=== PATIENT | male | born 1950 | race Caucasian/White ===

== ENCOUNTER 2022-05-06 09:20 | Outpatient (CLI) | payer MEDICARE, SELFPAY ==
--- NOTE | ~2022-05-06 | NM_ITS ---
NM bone scan whole body INDICATION: Prostate cancer TECHNIQUE: The patient was injected with 24.3 mCi Tc 99m HDP. Gamma camera images of the region of i nterest and whole body were obtained. COMPARISON: CT dated 05/06/2022 FINDINGS: There is mild radiotracer uptake symmetrically in the shoulders, wrists and knees. There is mild uptake in the mandible on the right, likely odontogenic disease. No suspicious radiotracer upta ke to suggest osseous metastases. IMPRESSION: 1: Normal bone scan for age. Reviewed, dictated and finalized at location A. LE SCHOOL RESOURCE TEACHER
--- NOTE | ~2022-05-06 | CT_ITS ---
EXAMINATION: CT abdomen pelvis w con DATE: 05/06/2022 10:15 INDICATION: Prostate cancer TECHNIQUE: Computed tomography (CT) of the abdomen and pelvis was performed with 100 CC Omnipaque 350 intravenous contrast. Automated exposure control and iterative reconstruction technique were employe d. Exam dose: 574.85 mGy-cm total exam DLP. COMPARISON: 01/18/2014 CT abdomen pelvis FINDINGS: Approximately 1.3 cm deep approximately 8.5 cm wide loculated high density pleural fluid or pleural thickening is present along the posteromedial right lower thorax with some adjacent atelecta sis or pulmonary fibrotic change. These findings are new since 01/08/2014. The lung bases are otherwise unremarkable. Normal heart size. No pericardial or pleural effusion. Small sliding hiatal hernia. There is nonspecific thickening of the wall of the distal esophagus and gastric fundus and body. Consider esophagram and upper gastrointestinal series or endoscopy. There are multiple scattered hepatic cysts, the largest measuring up to 2 cm, situated at the lateral segment of the left hepatic lobe. The remainder considerably smaller in size. The liver is otherwise unremarkable. The gallbladder is present. No pericholecystic fluid or fat stranding. No bile duct or pancreatic joana t dilatation. The spleen measures up to 12 cm vertical dimension, within upper normal range. Normal morphology of the adrenal glands. Approximately 1.3 cm probable cyst of the lower pole of the right kidney. There is focal scarring at the lateral mid to upper right kidney. Focal small scarring at the medial mid to upper left kidney. No urinary tract calculus or hydroureteronephrosis. There is prostate enlargement and calcification. There is moderate diffuse thickening of the urinary bladder wall, likely due to bladder outlet obstruction secondary to prostatomegaly. There is atherosclerotic calcification of the abdominal aorta, celiac, superior mesenteric and renal as well as iliac and femoral arteries. Mild saccular infrarenal abdominal aortic aneurysm, measuring up to 3.5 cm maximal diameter. Mild fat-containing right inguinal hernia. Normal appendix. There is a prominent amount of fecal material in the colon. No bowel obstruction, kristie wel wall thickening, pneumatosis or intraperitoneal free air. Degenerative changes of the thoracic and lumbar spine. No suspicious osteolytic or osteoblastic lesio ns are noted. IMPRESSION: Prostate enlargement and calcifications with bladder outlet obstruction causing moderate diffuse thickening of the urinary bladder wall Thickening of the distal wall of the esophagus and gastric fundus and body; consider esophagram and u pper gastrointestinal series or endoscopy Small sliding hiatal hernia Numerous hepatic cysts, 1.3 cm right renal cyst Focal mild scarring of each kidney 3.5 cm saccular infrarenal abdominal aortic aneurysm Reviewed, dictated and finalized at Location A. Reviewed, dictated and finalized at location B. ER PROFESSIONAL IMPRESSION: Prostate enlargement and calcifications with bladder outlet obstru ction causing moderate diffuse thickening of the urinary bladder wall Thickening of the distal wall of the esophagus and gastric fundus and body; con music director esophagram and upper gastrointestinal series or endoscopy Small sliding hiatal hernia Numerous hepatic cysts, 1.3 cm right renal cyst Focal mild scarring of each kidney 3.5 cm saccular infrarenal abdominal aortic aneurysm
--- NOTE | ~2022-05-06 | XR_ITS ---
XR chest 2V DATE: 05/06/2022 09:58 INDICATION: Prostate cancer TECHNIQUE: 2 views COMPARISON: None FINDINGS: There is ill-defined increased density overlying the right mid to lower lung field. There i s evidence of gynecomastia on the lateral view, which might account for the increased soft tissue den sity overlying the right mid and lower lung. No pulmonary infiltrate or consolidation, pleural effusion or pulmonary vascular congestion or pneumo thorax is detected. No hilar or mediastinal enlargement. Normal heart size. Degenerative spurring of the thoracic spine. There is osteopenia. There is suspicious osteolytic or o steoblastic lesions are identified. IMPRESSION: Suspected gynecomastia No active cardiopulmonary disease Reviewed, dictated and finalized at location B. O SYSTEM REPAIRER
[2022-05-06 10:08] LABS: Estimated Glomerular Filt Rate > 60
== END 2022-05-06 09:21 | disposition home or self-care (01) ==
PROVIDERS: PCP Family Medicine; Visit Provider Urology
DX: C61 Malignant neoplasm of prostate (principal); K44.9 Diaphragmatic hernia without obstruction or gangrene; I71.43 Infrarenal abdominal aortic aneurysm, without rupture
CPT/HCPCS: 71046; 74177; 78306; A9561; Q9967

== ENCOUNTER 2022-06-27 11:53 | Outpatient (CLI) | payer MEDICARE, SELFPAY ==
--- NOTE | 2022-06-27 13:04 | ECG_ITS ---
Measurements Intervals [place] Rate: 67 P: 85 PA: 173 QRS: 69 QRSD: 114 T: 47 QT: 413 QTc: 439 Interpretive Statements SINUS RHYTHM WITH SINUS ARRHYTHMIA BASELINE ARTIFACT- I, II, III, AVR, AVL, AVF, V1-V6 NORMAL ECG NO PREVIOUS ECG AVAILABLE FOR COMPARISON Electronically Signed On 06-27-2022 14:00:51 PORTABLE GRINDING MACHINE OPERATOR by Alfie Dukes D.O.
[2022-06-27 13:51] LABS: Hematocrit 49.6 % (42.0-52.0); Hemoglobin 15.5 g/dL (14.0-18.0); Mean Corpuscular HGB Conc 31.3 g/dl (32-36); Mean Corpuscular Hemoglobin 27.7 pg (26-34); Mean Corpuscular Volume 88.6 fl (80-100); Mean Platelet Volume 8.6 fl (7.4-10.4); Platelet Count Result 299 k/mm3 (150-375); Red Cell Distribution Width 14.2 % (11.5-14.5); White Blood Count 7.6 K/mm3 (4.5-10.0)
[2022-06-27 14:00] LABS: Appearance Urine Clear (Clear); Bilirubin Urine Negative (Negative); Blood Urine Trace-intact (Negative); Color Urine Yellow (Yellow); Glucose Urine UA Negative (Negative); Ketones Urine Negative (Negative); Leukocyte Esterase Ur Negative LEU/UL (Negative); Nitrate Urine Negative (Negative); Protein Urine Negative (Negative)
[2022-06-27 14:01] LABS: INR 1.2; Prothrombin Time 14.7 Seconds (11.1-14.7)
[2022-06-27 14:02] LABS: Alanine Aminotransferase 13 U/L (6-50); Albumin Level 4.3 g/dL (3.5-5.1); Alkaline Phosphatase 83 U/L (38-126); Anion Gap 4 mmol/L (8-16); Aspartate Amino Transferase 19 U/L (17-59); Bilirubin,Total 0.5 mg/dL (0.2-1.3); Blood Urea Nitrogen 8 mg/dL (9-20); Calcium 8.9 mg/dL (8.4-10.2); Carbon Dioxide 38 mmol/L (22-30); Chloride 92 mmol/L (98-107); Estimated Glomerular Filt Rate > 60; Glucose 117 mg/dL (65-110); Partial Thromboplastin Time 30.6 SECONDS (22.3-36.8); Potassium 3.8 mmol/L (3.4-5.0); Sodium 134 mmol/L (137-145)
[2022-06-27 14:06] LABS: Bacteria Urine Trace /hpf; Mucus Urine Rare /lpf; WBC Urine 0-3 /hpf
[2022-06-27 14:10] LABS: Add Urine Microscopic? YES
[2022-06-27 14:37] LABS: Band Neutrophils Percent 2 % (0-6); Eosinophils Absolute Manual 1.52 K/mm3 (0.02-0.5); Eosinophils Percent Manual 20 % (0-4); Lymphocytes Absolute Manual 1.97 K/mm3 (1.1-4.5); Lymphocytes Percent Manual 26 % (18-44); Monocytes Absolute Manual 0.22 K/mm3 (0.1-0.90); Monocytes Percent Manual 3 % (3-9); Neutrophils Absolute Manual 3.87 K/mm3 (1.3-6.7); Neutrophils Percent Manual 49 % (46-73); Platelet Estimate Adequate (Adequate); Total Cells Counted 100
[2022-06-27 14:38] LABS: Schistocytes None Seen (NORMAL)
== END 2022-06-27 11:54 | disposition home or self-care (01) ==
PROVIDERS: PCP Family Medicine; Visit Provider Urology
DX: C61 Malignant neoplasm of prostate (principal); Z01.818 Encounter for other preprocedural examination
CPT/HCPCS: 36415; 80053; 81001; 85025; 85610; 85730; 86850; 86900; 86901; 93005

== ENCOUNTER 2022-07-07 00:42 | Day surgery (SDC) | payer MEDICARE, SELFPAY ==
[2022-06-27 12:19] VITALS: BMI 27.1
--- NOTE | 2022-06-27 12:37 | PC.NURSE ---
Report to the Outpatient Waiting Room, entrance under the green pavilion located off [facility], at time __6:00AM on date _07/07/22 . Planned Procedure Time: __7:30AM . Time changes happen often and if your time is changed the preop area will call you the afternoon before. - You and your visitor will be asked to self-screen and do not enter if you have any COVID symptoms. - Only one visitor is requested with a max of two and NO children visitors are allowed at this time. - The patient visitor may be requested to leave or wait in car when not with patient due to distancing restrictions. - A mask is optional within the hospital. Patients may have clear liquids (water, carbonated beverages, clear teas, apple juice) until 3 hours prior to surgery with a maximum of 20 ounces. - No food from midnight until time of surgery Take the following medications with a SIP of water the morning of surgery: ____CARVEDILOL, WIXELA INHALER, TIMOLOL EYE DROPS, ALBUTEROL INHALER NEEDED Medications to discontinue per physician ___HOLD ASPIRIN 7 DAYS PRE-OP PER DR GARDNER(PER PATIENT) Date to take last dose____06/30/22 Please no make-up, nail comoran, hairspray, perfume, deodorant, or body powder the day of surgery. No jewelry (including any body piercings) or valuables the day of surgery, leave them at home. Please take a shower or bath the night before, or the morning of, surgery with an antibacterial soap. Wear comfortable, loose fitting clothing. Children are encouraged to wear pajamas. - Jewelry must be removed prior to entering the operating room. Rings and piercings that are not removed may be cut off. - The hospital will not accept responsibility for valuables. - Please leave all valuables, including medications, at home the day of surgery. If you are going home after surgery, a licensed city route driver must drive you home. - NO public transportation without another adult if you receive anesthesia. - We recommend that an adult stay with you for 24 hours following discharge. - We also recommend that you do not drive, make important decision, drink alcoholic beverages, or take any drugs that were not prescribed by your health care provider for at least 24 hours after your discharge time. Follow any additional instructions given to you from your surgeon. BOWEL PREP PER DR GARDNER If you or anyone in your household have experienced Covid symptoms in the past week, please notify your surgeon or the nurse liaison at the phone number below for possible testing. Telephone instructions given to __PATIENT____and asked if any additional questions and then verbalized understanding. Patient advised to call surgeon office or pre surgery nurse liaison [phone] if any additional questions.
[2022-06-27 13:00] VITALS: BP 160/81; PULSE 70; RESP 16; TEMP 37.1; O2SAT 95
--- NOTE | 2022-06-30 08:42 | P.HP_ITS ---
H&P: HPI History of Present Illness Date/Time: 06/30/22 08:42 Chief Complaint: Prostate cancer Narrative: 71-year-old gentleman who was found to have a PSA of 11.4 in April 2022. Subsequent biopsy revealed 5 of 12 cores with [place] 6, 7, 8 and 9 adenocarcinoma. Prostate volume was 42.[address] scan the abdomen and pelvis and bone scan were unremarkable. After careful discussion and consideration of therapeutic options including active surveillance, radiation therapy, radical prostatectomy and androgen ablation he has opted for the surgical approach. He is aware the risk of this including, but not limited to, adverse cardiopulmonary events, rectal injury, persistent carcinoma requiring additional therapy, urinary incontinence and erectile dysfunction Review of Systems Cardiovascular: Cardiovascular: Denies chest pain, Denies lightheadedness, Denies palpitations and Denies dyspnea Respiratory: Respiratory: Denies dyspnea Gastrointestinal: Gastrointestinal: Denies diarrhea, Denies nausea and Denies vomiting Genitourinary: Genitourinary: Denies hematuria and Denies dysuria Endocrine: Endocrine: Denies palpitations PMFSH Social History Social History Smoking packs per day: 1.5 Smoking cigarettes per day: 30.0 Years smoked: 55 Smoking pack-years: 82.50 Smoking status: Current every day smoker Tobacco type: cigarettes Additional smoking assessment comments: DECREASING SMOKING SINCE 2021, 4 CIG/DAY/TAPERING NICOTINE PATCH Alcohol intake: former Alcohol use details: QUIT 2018, HEAVY DRINKER PRIOR Substance use: never Living arrangements: alone Spiritual care concerns: No Meds Home Medications and Allergies Home Medications Medication Instructions Recorded Confirmed Type albuterol sulfate 90 mcg/actuation 2 puff inhalation Q4-5H PRN Dyspnea 06/27/22 06/27/22 History aerosol inhaler aspirin 81 mg tablet,delayed 81 mg PO QPM 06/27/22 06/27/22 History release carvedilol 12.5 mg tablet 12.5 mg PO BID 06/27/22 06/27/22 History cetirizine 10 mg capsule 10 mg PO DAILY PRN Congestion 06/27/22 06/27/22 History fluticasone 250 mcg-salmeterol 50 1 inh inhalation BID 06/27/22 06/27/22 History mcg/dose blistr powdr for inhalation (Wixela Inhub) lisinopril 20 1 tablet PO QAM 06/27/22 06/27/22 History mg-hydrochlorothiazide 12.5 mg tablet nicotine 7 mg/24 hr daily 1 patch transdermal DAILY 06/27/22 06/27/22 History transdermal patch pantoprazole 40 mg tablet,delayed 40 mg PO QAM 06/27/22 06/27/22 History release timolol maleate 0.5 % eye drops 1 drp EACH EYE BID 06/27/22 06/27/22 History Allergies Allergy/AdvReac Type Severity Reaction Status Date / Time No Known Allergies Allergy Verified 06/27/22 12:09 Exam Const: General: no acute distress Resp: Effort & Inspection: normal respiratory effort GI: Inspection: non-distended GI Palp: No abdominal tenderness and No Guarding due to palpation present (GI) Auscultation: normal bowel sounds Assessment and Plan Assessment and plan (1) Prostate cancer: Code(s): C61 - Malignant neoplasm of prostate Status: Acute Assessment and Plan: * robotic assisted laparoscopic prostatectomy bilateral pelvic lymphadenectomy
[2022-07-07] VITALS (22 sets, daily range): BP systolic 81–153; BP diastolic 44–96; PULSE 56–108; RESP 9–18; TEMP 35.8–36.6; O2SAT 87–99
[2022-07-07] MEDS: LACTATED RINGERS 1,000 ML 30 ML IV CONT ×2 (06:45→10:26)
--- NOTE | 2022-07-07 06:55 | WPDANESEPPF ---
Anes - Initial Pre Proc Eval Procedure: Operation Date: 07/07/22 07:30 Proposed Procedures p Robotic Assisted Laparoscopic Prostatectomy with Bilateral Pelvic Lymph Node Dissection - Nacho Stoddard MD Date/Time: 07/07/22 06:55 Surgeon: Nacho Stoddard MD Pre Op Diagnosis: prostate cancer Patient Data Age: 72 Gender: M Height: 1.83 m Weight: 90.7 kg Last Vital Signs Temp 37.1 C 06/27/22 13:00 Pulse 70 06/27/22 13:00 Resp 16 06/27/22 13:00 BP 160/81 H 06/27/22 13:00 Pulse Ox 95 06/27/22 13:00 O2 Del Method Room Air 06/27/22 13:00 Allergies Allergy/AdvReac Type Severity Reaction Status Date / Time No Known Allergies Allergy Verified 06/27/22 12:09 Home Medications Medication Instructions Recorded Confirmed Type albuterol sulfate 90 mcg/actuation 2 puff inhalation Q4-5H PRN Dyspnea 06/27/22 06/27/22 History aerosol inhaler aspirin 81 mg tablet,delayed 81 mg PO QPM 06/27/22 06/27/22 History release carvedilol 12.5 mg tablet 12.5 mg PO BID 06/27/22 06/27/22 History cetirizine 10 mg capsule 10 mg PO DAILY PRN Congestion 06/27/22 06/27/22 History fluticasone 250 mcg-salmeterol 50 1 inh inhalation BID 06/27/22 06/27/22 History mcg/dose blistr powdr for inhalation (Wixela Inhub) lisinopril 20 1 tablet PO QAM 06/27/22 06/27/22 History mg-hydrochlorothiazide 12.5 mg tablet nicotine 7 mg/24 hr daily 1 patch transdermal DAILY 06/27/22 06/27/22 History transdermal patch pantoprazole 40 mg tablet,delayed 40 mg PO QAM 06/27/22 06/27/22 History release timolol maleate 0.5 % eye drops 1 drp EACH EYE BID 06/27/22 06/27/22 History Patient hx anesthesia problems: none Family hx anesthesia problems: none Results Review: All pre-operative results and documents have been reviewed as part of the pre-operative evaluation. FORMERLY [facility] Past Medical History Medical History (Updated 07/07/22 @ 06:56 by Silvio Woods MD) COPD (chronic obstructive pulmonary disease) HTN (hypertension) Hyperlipidemia Surgical History Surgical History (Updated 07/07/22 @ 06:56 by Silvio Woods MD) H/O carotid endarterectomy Social History Social History Smoking packs per day: 1.5 Smoking cigarettes per day: 30.0 Years smoked: 55 Smoking pack-years: 82.50 Smoking status: Current every day smoker Tobacco type: cigarettes Additional smoking assessment comments: DECREASING SMOKING SINCE 2021, 4 CIG/DAY/TAPERING NICOTINE PATCH Alcohol intake: former Alcohol use details: QUIT 2017, HEAVY DRINKER PRIOR Substance use: never Living arrangements: alone Spiritual care concerns: No Anes - Eval Final PreProcedure Day of Procedure 07/07/22 06:55 Patient weight: overweight Heart: regular rate and rhythm Lungs: decreased breath sounds Airway: Mallampati scale class II Neurological: alert and oriented Last oral intake: >/= 8 hours ASA classification: III Emergent: no Anesthetic plan: proceed Anesthesia type and monitoring: general ETT and standard monitoring Results Review: All pre-operative results and documents have been reviewed as part of the pre-operative evaluation. Informed Consent: The patient's anesthetic plan and its attendant risks and benefits were discussed with the patient/family/POA. Questions were solicited and answers provided to the satisfaction of the patient/family/POA.
--- NOTE | 2022-07-07 07:02 | WPDHPUPDATE1 ---
History and Physical Update Update Date/Time: 07/07/22 07:02 History and Physical has been reviewed, including an updated exam of the patient. There are NO changes in the patient's condition. Risks, benefits, and alternatives have been discussed and questions answered. Patient agrees to proceed with procedure.
[2022-07-07] MEDS: ceFAZolin 2 GM/D5W 50 ML 2 GM/50 ML BAG IVPB (07:22)
[2022-07-07] MEDS: PHENYLEPHRINE 1,000 MCG/10 ML SYRINGE 100 MCG IV PUSH (10:43)
--- NOTE | 2022-07-07 10:51 | W.PM.PROC2 ---
Procedure Note - Detailed Date of Procedure 07/07/22 Pre-op Diagnosis Prostate cancer Post-op Diagnosis Same Procedure Performed Robotic-assisted laparoscopic radical prostatectomy and bilateral pelvic lymphadenectomy Surgeon Nacho Stoddard MD Anesthesia General Description of Procedure The patient was brought to the operative suite, where he was prepped and draped in routine sterile fashion while in a dorsal lithotomy, deep Trendelenburg position. A supraumbilical 10 mm trocar was placed after insufflation of the abdomen with a Veress needle. Three robotic ports were then placed under direct vision. Two of these were placed in the right lower quadrant - 10 cm and 20 cm lateral to, and in line with, the umbilicus. A third robotic trocar was placed 10 cm to the left of the umbilicus, and 20 cm to the left of the umbilicus, a 12 mm standard laparoscopic trocar was placed to be used as an assistant to the dean port. Lastly, a 5 mm trocar was placed in the left upper quadrant midway between the umbilicus and the left robotic trocar. Attention was then turned to the prostatectomy. I opted for a posterior approach in this patient. An incision was made in the parietal peritoneum along the posterior bladder/posterior prostate about 2 cm above the reflection of the peritoneum over the anterior rectum. The seminal vesicles and vas deferens were immediately identified. Dissection is undertaken in a fashion so as to avoid electrocautery as much as possible, particularly near the tips of the seminal vesicles. Dissection was also carried out in the midline so as to avoid any encounters with the ureters. The vas deferens and the seminal vesicles were dissected in their entirety to the base of the prostate. The plane anterior to Denoviller's fascia, anterior to the rectum and posterior to the prostate was then developed. I then dropped the bladder by incising the anterior parietal peritoneum just lateral to the median umbilical ligaments bilaterally. The bladder was dropped from the anterior abdominal and pelvic wall. The endopelvic fascia was identified and incised bilaterally, allowing for dissection of the posterior-lateral aspect of the prostate. The puboprostatic ligaments were transected near their origin from the posterior pubic ramus. This posterior lateral dissection of the prostate is also undertaken in a fashion so as to avoid electrocautery as much as possible. The dorsal vein of the penis is then secured with an 0 -Vicryl ligature. Attention is then turned to the bladder neck. The anterior bladder neck is incised at the vesico-prostatic junction. The previously placed urethral catheter was drawn through the urethrotomy. A very small bladder neck was maintained throughout the remainder of this dissection. The posterior bladder neck was incised in a fashion so as to avoid any injury to the ureteral orifices. Again, the small aperture of the bladder neck was maintained. The previously dissected vas deferens and the seminal vesicles were brought through the posterior bladder neck incision. The lateral prostatic pedicles were then carefully dissected from the lateral aspect of the prostate bilaterally. The prostatic pedicles were secured with Weck clips and transected. The neurovascular bundles were carefully dissected from the posterior-lateral aspect of the prostate. The dorsal vein of the penis was incised with electrocautery. Using cold scissors, the urethra was incised. After withdrawing the previously placed urethral catheter, the posterior urethra was sharply incised, as was the rectalurethralis muscle. Attention was then turned to an extended bilateral pelvic lymphadenectomy. The limits of this dissection were similar bilaterally. Specifically, the limits were the bifurcation of the common iliac vein proximally, the inguinal ligament distally, the obturator nerve posteriorly and the anterior aspect to the external iliac artery laterally. This dissecti
[2022-07-07] MEDS: LACTATED RINGERS 1,000 ML 125 ML IV CONT ×2 (13:43→21:33)
--- NOTE | 2022-07-07 13:53 | ADMGEN ---
This patient, Mc Colon, was admitted to 3 [facility] Surg Room 310-01. Report received from GIANNA Carr. Patient/family oriented to hospital policies and general routines including ID bracelet, bed and alarms, visiting hours, pain management, procedures, bathroom and other care routines, personal items, smoking policy, room service/diet, and visiting hours. Information on how to activate the Rapid Response Team has been discussed. Patient/Family are encouraged to report perceived risks to care and to ask questions if they do not understand what they are told or what they should do.
[2022-07-07] MEDS: TIMOLOL MALEATE 0.5% OP SOLN 5 ML BOTTLE 1 DROP EACH EYE (17:31)
[2022-07-07] MEDS: DOCUSATE SODIUM 100 MG CAPSULE PO (17:31)
[2022-07-07] MEDS: FLUTICASONE/SALMETEROL 115-21 MCG INHALER 1 PUFF 2 PUFF INHALATION (19:35)
[2022-07-07] MEDS: carvediloL 12.5 MG TABLET PO (20:37)
[2022-07-08 02:48] VITALS: BP 143/62; PULSE 66; RESP 14; TEMP 36.1; O2SAT 91
[2022-07-08] MEDS: LACTATED RINGERS 1,000 ML 125 ML IV CONT (05:05)
[2022-07-08 06:00] LABS: Hematocrit 43.1 % (42.0-52.0); Hemoglobin 13.4 g/dL (14.0-18.0)
[2022-07-08 06:20] LABS: Anion Gap 4 mmol/L (8-16); Blood Urea Nitrogen 12 mg/dL (9-20); Carbon Dioxide 33 mmol/L (22-30); Chloride 94 mmol/L (98-107); Estimated CRCL calculation 77 ml/min; Estimated Glomerular Filt Rate > 60; Glucose 103 mg/dL (65-110); Potassium 4.1 mmol/L (3.4-5.0); Sodium 131 mmol/L (137-145)
[2022-07-08 08:29] VITALS: O2SAT 96
[2022-07-08 08:30] VITALS: BP 167/67
[2022-07-08 08:31] VITALS: PULSE 80
[2022-07-08] MEDS: hydroCHLOROthiazide 12.5 MG CAPSULE PO (08:31)
[2022-07-08] MEDS: levoFLOXacin 500 MG TABLET PO (08:31)
[2022-07-08] MEDS: carvediloL 12.5 MG TABLET PO (08:31)
[2022-07-08] MEDS: DOCUSATE SODIUM 100 MG CAPSULE PO (08:31)
[2022-07-08] MEDS: NICOTINE (*PBKC) 7 MG PATCH 1 PATCH TRANSDERM (08:32)
[2022-07-08] MEDS: lisinopriL 20 MG TABLET PO (08:32)
[2022-07-08] MEDS: TIMOLOL MALEATE 0.5% OP SOLN 5 ML BOTTLE 1 DROP EACH EYE (08:32)
[2022-07-08] MEDS: PANTOPRAZOLE 40 MG TABLET PO (08:32)
[2022-07-08] MEDS: FLUTICASONE/SALMETEROL 115-21 MCG INHALER 1 PUFF 2 PUFF INHALATION (08:43)
[2022-07-08] MEDS: ALBUTEROL SULFATE (*SP) AEROSOL 1 PUFF 2 PUFF INHALATION (10:11)
[2022-07-08 10:48] VITALS: BP 129/55; PULSE 60; RESP 20; TEMP 36.2; O2SAT 95
[2022-07-08 10:51] VITALS: BMI 26.2
--- NOTE | 2022-07-08 12:14 | WPDANESPN ---
Anes - Prog Note Post-Op Date/Time: 07/08/22 12:14 Cardiovascular status: normal Respiratory status: normal Airway patency: baseline Mental status: baseline Post-Op hydration status: normal Vital Signs: Last Vital Signs Temp 36.2 C L 07/08/22 10:48 Pulse 60 07/08/22 10:48 Resp 20 07/08/22 10:48 BP 129/55 L 07/08/22 10:48 Pulse Ox 95 07/08/22 10:48 O2 Del Method Room Air 07/08/22 08:29 O2 Flow Rate 2 07/07/22 12:50 Pain Score (VAS): 08/12 I/O: Intake & Output 07/07/22 07/08/22 07/08/22 23:59 07:59 15:59 Intake Total 1800 1600 340 Output Total 400 1600 Balance 1400 0 340 Laboratory Tests 07/08/22 05:38 07/08/22 05:38 07/08/22 07/08/22 05:38 05:38 Hgb 13.4 L Hct 43.1 Sodium 131 L Potassium 4.1 Chloride 94 L Carbon Dioxide 33 H Anion Gap 4 L BUN 12 Creatinine 0.80 Estim Creat Clear Calc 77 Estimated GFR > 60 Glucose 103 Calcium 8.0 L Post-procedural complaints: none Patient Feedback: Patient satisfied with anesthetic care.
--- NOTE | 2022-07-08 12:36 | PM.DS ---
DS: Admitting Diagnosis Discharge Date 07/08/2022 Admitting Diagnosis Prostate cancer DS: Summary Hospital Course Hospital Course: This patient was admitted on the morning of his planned robotic prostatectomy. This procedure was uneventful, as was his postoperative course. By the evening of the procedure he was sitting at the bedside in tolerating a liquid diet. The following morning he was ambulating freely and tolerating regular food. His catheter drainage remained essentially clear throughout. His postoperative hemoglobin and serum creatinine were unremarkable. At the time of discharge he has been instructed in appropriate care for his Matson catheter with both a leg bag and bedside bag. He will be discharged with plans to follow-up in 1 week with a cystogram. Time Spent with Patient Time attestation: Total time spent providing and/or coordinating discharge services: DS: Data Data Completed and Pending Pending studies at discharge: Pending at discharge 07/07/22 08:43 Surgical [PTH] Routine Labs on day of discharge: Labs from last 24 hours 07/08/22 07/08/22 05:38 05:38 Hgb 13.4 L Hct 43.1 Sodium 131 L Potassium 4.1 Chloride 94 L Carbon Dioxide 33 H Anion Gap 4 L BUN 12 Creatinine 0.80 Estim Creat Clear Calc 77 Estimated GFR > 60 Glucose 103 Calcium 8.0 L Discharge Plan Discharge Patient Disposition: Home, Self-Care Discharge Instructions: 1) Matson catheter -> leg bag / bedside bag at night. 2) No lifting/straining >15lbs. x3 weeks. 3) No driving x1-week. 4) Resume normal, pre-operative diet. 5) My office will contact regarding follow-up in 1-week with cystogram. Stand Alone Forms: General Discharge Instructions Discharge Orders: Discharge Order (Routine); Ordered 07/08/22 Ordered By: Nacho Stoddard Discharge Medications: New docusate sodium [Colace] 100 mg capsule 100 mg PO DAILY Qty: 30 0RF hydrocodone-acetaminophen 5-325 mg tablet 1 - 2 tablet PO Q6H PRN (Reason: pain) Qty: 20 0RF hyoscyamine sulfate 0.125 mg tablet 0.125 mg PO Q6H PRN (Reason: bladder spasms) Qty: 20 2RF cephalexin 500 mg capsule 500 mg PO Q8H Qty: 9 0RF Continued fluticasone propion-salmeterol [Wixela Inhub] 250-50 mcg/dose blister with device 1 inh INHALATION BID carvedilol 12.5 mg tablet 12.5 mg PO BID lisinopril-hydrochlorothiazide 20-12.5 mg tablet 1 tablet PO QAM pantoprazole 40 mg tablet,delayed release (DR/EC) 40 mg PO QAM albuterol sulfate 90 mcg/actuation HFA aerosol inhaler 2 puff INHALATION Q4-5H PRN (Reason: Dyspnea) timolol maleate 0.5 % drops 1 drp EACH EYE BID nicotine 7 mg/24 hr Patch 24 Hour 1 patch TRANSDERMAL DAILY cetirizine 10 mg Capsule 10 mg PO DAILY PRN (Reason: Congestion) Held aspirin 81 mg Tablet,Delayed Release (Dr/Ec) 81 mg PO QPM Hold Instructions: Resume on 07/12/22.
== END 2022-07-08 13:43 | disposition home or self-care (01) ==
LOC: ANHSURGERY 05:48 → ANH3MEDSUR 13:08
PROVIDERS: PCP Family Medicine; Visit Provider Urology
PROC: 0VT04ZZ Resection of Prostate, Percutaneous Endoscopic Approach (ICD-10-PCS; CPT 55867; principal; 2022-07-07 07:30)
DX: C61 Malignant neoplasm of prostate (principal); J44.9 Chronic obstructive pulmonary disease, unspecified; I10 Essential (primary) hypertension; E78.5 Hyperlipidemia, unspecified; F17.210 Nicotine dependence, cigarettes, uncomplicated; Z79.51 Long term (current) use of inhaled steroids; Z79.82 Long term (current) use of aspirin
CPT/HCPCS: 55866; 38571; S2900; 36415; 80048; 80053; 81001; 85014; 85018; 85025; 85610; 85730; 86850; 86900; 86901; 88305; 88309; 93005; 94640; A9270; J0131; J0690; J1100; J1170; J1200; J2250; J2370; J2405; J2704; J2710; J3010; J7120; Q9968

== ENCOUNTER 2022-07-15 11:14 | Outpatient (CLI) | payer MEDICARE, SELFPAY ==
--- NOTE | ~2022-07-15 | XR_ITS ---
EXAMINATION: XR cystogram DATE: 07/15/2022 11:58 INDICATION: Prostate cancer. TECHNIQUE: Water-soluble contrast was gravity-infused through the patient's Matson catheter. Multiple fluoroscopic images were obtained. Fluoroscopy exposure time was 0.2 minutes. The total number of jessica ges was 7. COMPARISON: CT abdomen and pelvis 05/06/2022 FINDINGS: There is no extraluminal leakage of contrast. No ureteral reflux. IMPRESSION: 1. No extraluminal leakage of contrast. Reviewed, dictated and finalized at location A. TABLE SORTER
== END 2022-07-15 11:15 | disposition home or self-care (01) ==
PROVIDERS: PCP Family Medicine; Visit Provider Urology
DX: C61 Malignant neoplasm of prostate (principal)
CPT/HCPCS: 51600; 74430; Q9967

== ENCOUNTER 2024-06-16 05:19 | Inpatient (IN) | payer MEDICARE, OTHER, SELFPAY ==
[2024-06-16] VITALS (37 sets, daily range): BP systolic 91–162; BP diastolic 36–117; PULSE 52–83; RESP 12–26; TEMP 36.8–37.1; O2SAT 81–100; BMI 27.8
--- NOTE | ~2024-06-16 | CT_ITS ---
EXAMINATION: CTA chest abdomen pelvis DATE: 06/16/2024 06:25 INDICATION: Rule out aortic dissection TECHNIQUE: Computed tomography angiography (CTA) of the chest, abdomen and pelvis was performed with 100 mL Omnipaque-350 intravenous contrast timed to evaluate the pulmonary arteries. Coronal maximum i ntensity projection 3D-reconstructions were created by the technologist. Automated exposure control a nd iterative reconstruction technique were employed. Exam dose: 1047.10 mGy-cm total exam DLP. COMPARISON: None. FINDINGS: There is thyroid goiter with extension of both lobes into the superior mediastinum. There is diffuse thickening of the wall of the esophagus, possibly due to esophagitis. No hilar or mediastinal mass lesion or lymphadenopathy is noted. Normal heart size. No pericardial effusion. Left main and left anterior descending coronary artery ca lcifications. There is calcification of the thoracic aorta and great vessels. No thoracic aortic aneurysm or dissec tion. There is prominent atelectasis in the posteromedial aspect of the right lower lobe with severe narrow ing of the associated segmental airway. There is multifocal mild patchy infiltrate and atelectasis in the left lower lobe. Small bilateral pleural effusions. The liver, gallbladder, bile ducts, spleen, pancreas, pancreatic duct, and adrenal glands are unremar kable. 1.4 cm posteromedial lower pole right renal cyst. No other renal space occupying mass lesion or urina ry tract calculus or hydroureteronephrosis is noted. There is a moderate diffuse thickening of the ur inary bladder wall. Small bilateral fat-containing inguinal hernias, right larger than left. Fusiform infrarenal up to 4 cm abdominal aortic aneurysm, terminating at the aortic bifurcation. No a bdominal aortic dissection. There is prominent calcification of the renal arteries, particularly proximally. There is prominent c alcification of the iliac and femoral arteries without aneurysm. No intraperitoneal or retroperitoneal or pelvic mass lesion or adenopathy or ascites. No evidence of appendicitis. No bowel obstruction or intraperitoneal free air. No suspicious osteolytic or osteoblastic lesions are noted. Diffuse hepatic skeletal hyperostosis of the thoracic spine. IMPRESSION: Thyroid goiter Diffuse esophageal wall thickening, possibly due to esophagitis Extensive coronary artery calcification Small pleural effusions, bilateral lower lobe infiltrate/atelectasis Prominent atherosclerosis of the thoracic and abdominal aorta without dissection; 4 cm fusiform infra renal abdominal aortic aneurysm 1.4 cm right renal cyst Reviewed, dictated and finalized at [facility] Reviewed, dictated and finalized at [facility] IMPRESSION: Thyroid goiter Diffuse esophageal wall thickening, possibly due to esophagitis Extensive coronary artery calcification Small pleural effusions, bilateral lower lobe infiltrate/atelectasis Prominent atherosclerosis of the thoracic and abdominal aorta without dissectio n; 4 cm fusiform infrarenal abdominal aortic aneurysm 1.4 cm right renal cyst
--- NOTE | 2024-06-16 05:22 | ECG_ITS ---
Test Date: 2024-06-16 05:24:08 Measurements Intervals [place] Rate: 75 P: 95 VT: 163 QRS: 67 QRSD: 108 T: -54 QT: 397 QTc: 444 Interpretive Statements SINUS RHYTHM WITH OCCASIONAL VENTRICULAR PREMATURE COMPLEXES NONSPECIFIC ST & T-WAVE ABNORMALITY ABNORMAL ECG Electronically Signed On 06-16-2024 08:33:10 DRY GOODS INSPECTOR by Carson Harris M.D.
[2024-06-16 05:39] LABS: Basophils Absolute Auto 0.1 K/mm3 (0.0-0.1); Basophils Percent Auto 1.1 % (0.2-1.2); Eosinophils Absolute Auto 2.4 K/mm3 (0-0.3); Eosinophils Percent Auto 22.2 % (0-4.4); Hematocrit 49.3 % (42.0-52.0); Hemoglobin 15.3 g/dL (14.0-18.0); Immature Granulocyte Absolute 0.03 K/mm3 (0.00-0.031); Immature Granulocyte Percent A 0.3 % (0-0.5); Lymphocytes Absolute Auto 2.03 K/mm3 (0.9-3.2); Lymphocytes Percent Auto 18.9 % (18.3-44.2); Mean Corpuscular Hemoglobin 29.2 pg (26-34); Mean Corpuscular Volume 94.1 fl (80-100); Mean Platelet Volume 9.4 fl (7.4-10.4); Monocytes Absolute Auto 0.5 K/mm3 (0.1-0.6); Monocytes Percent Auto 4.8 % (2.6-8.5); Neutrophils Absolute Auto 5.7 K/mm3 (1.3-6.7); Neutrophils Percent Auto 52.7 % (45.5-73.1); Platelet Count Result 276 k/mm3 (150-375); Red Blood Count 5.24 M/mm3 (4.6-6.20); Red Cell Distribution Width 14.5 % (11.5-14.5); White Blood Count 10.7 K/mm3 (4.5-10.0)
[2024-06-16] MEDS: NITROGLYCERIN SL 0.4 MG TABLET SUBLINGUAL (05:41)
--- NOTE | 2024-06-16 05:45 | ED.GENADULT ---
HPI - General Adult General Chief complaint: Chest Pain Stated complaint: STEMI History of Present Illness HPI narrative: 73-year-old male with history of congestive heart failure with no history of coronary disease present in the emergency department for evaluation for intermittent chest pain. Patient reports over the course of the last month he has had 6 episodes of intense chest pain. Patient states this morning at approximately 2 AM he had intense 9/10 chest pain that radiated to his back. Patient states the pain lasted until approximately 5:00 a.m. have when he called EMS. Upon arrival to the scene patient had EKG showing normal sinus rhythm, patient did walk out to the truck coming out to the EMS rig he had some ST changes. EMS was concerned and called a code STEMI. Arrival to the emergency department patient's EKG did not appear to be STEMI and this was discussed with Cardiology-STEMI was canceled. Related Data Home Medications ?Medication ?Instructions ?Recorded ?Confirmed ?Last Taken ?Type albuterol sulfate 90 mcg/actuation 2 puff inhalation Q4-5H PRN Dyspnea 06/27/22 07/07/22 Unknown History aerosol inhaler aspirin 81 mg tablet,delayed 81 mg PO QPM 06/27/22 07/07/22 06/30/22 History release carvedilol 12.5 mg tablet 12.5 mg PO BID 06/27/22 07/07/22 07/07/22 06:00 History cetirizine 10 mg capsule 10 mg PO DAILY PRN Congestion 06/27/22 07/07/22 Unknown History fluticasone 250 mcg-salmeterol 50 1 inh inhalation BID 06/27/22 07/07/22 Unknown History mcg/dose blistr powdr for inhalation (Wixela Inhub) lisinopril 20 1 tablet PO QAM 06/27/22 07/07/22 Unknown History mg-hydrochlorothiazide 12.5 mg tablet nicotine 7 mg/24 hr daily 1 patch transdermal DAILY 06/27/22 07/07/22 Unknown History transdermal patch pantoprazole 40 mg tablet,delayed 40 mg PO QAM 06/27/22 07/07/22 Unknown History release timolol maleate 0.5 % eye drops 1 drp EACH EYE BID 06/27/22 07/07/22 Unknown History Allergies Allergy/AdvReac Type Severity Reaction Status Date / Time No Known Allergies Allergy Verified 06/16/24 05:34 Review of Systems Review of Systems: All systems reviewed & are unremarkable except as noted in HPI and below PMFSH Past Medical History Medical History (Updated 06/16/24 @ 08:32 by Ferny Doyle MD) COPD (chronic obstructive pulmonary disease) Hyperlipidemia HTN (hypertension) Surgical History Surgical History (Updated 07/07/22 @ 06:56 by Silvio Woods MD) H/O carotid endarterectomy Social History Social History Smoking packs per day: 0.5 Smoking cigarettes per day: 10.0 Years smoked: 55 Smoking pack-years: 27.50 Smoking status: Current every day smoker Tobacco type: cigarettes Additional smoking assessment comments: DECREASING SMOKING SINCE 2021, 4 CIG/DAY/TAPERING NICOTINE PATCH Alcohol intake: former Alcohol use details: QUIT 2018, HEAVY DRINKER PRIOR Substance use: never Lack of Transportation: No Lack of Food: Never True Current Housing: I Have Housing Concerned About Future Housing: No Difficulty Paying Gas/Electric Bills: No Difficulty Paying for Meds: No Currently Unemployed: No Education: High School Diploma/GED Difficulty w/ Childcare or Family Care: No Living arrangements: alone Spiritual care concerns: No Exam Narrative: APPEARANCE: Well appearing, no pain, no distress, well-nourished. HEAD: normocephalic, atraumatic. EYES: PERRLA/EOMI, conjunctivae clear. NOSE: Normal no drainage EARS:TMS clear with good light reflex. THROAT: Pharynx clear, no exudate. NECK: Supple. No adenopathy, no masses. RESPIRATORY: Airway patent, respirations nonlabored. Clear to auscultation bilaterally, no rales, rhonchi, wheezing. CARDIOVASCULAR: Regular rate and rhythm without murmurs rubs or gallops. ABDOMINAL: Soft, nontender, nondistended, normal bowel sounds MUSCULOSKELETAL: Moves all extremities. Strength/ROM intact, No edema, No calf tenderness. NEURO: Alert. Cranial nerves II through XII intact. Good gait. Good coordination SKIN: Warm, dry. Normal Color Course Vital Signs Vital signs: Vital Signs Temperature 98.3 F 06/16/24 05:26 Pulse Rate 74 06/16/24 05:26 Respiratory Rate 15 06/16/24 05:26 Blood Pressure 144/90 H 06/16/24 05:26 Pulse Oximetry 94 06/16/24 05:26 Oxygen Delivery Room Air 06/16/24 05:26 Temperature 98.3 F 06/16/24 05:26 Pulse Rate 74 06/16/24 05:26 Respiratory Rate 15 06/16/24 05:26 Blood Pressure 144/90 H 06/16/24 05:26 Pulse Oximetry 94 06/16/24 05:26 Oxygen Delivery Room Air 06/16/24 05:26 Medical Decision Making [facility] Narrative Medical decision making narrative: 73-year-old male presents emergency department for evaluation for intermittent chest pain. Patient's CMP has no acute abnormalities, patient's initial troponin was 2.32. Cardiology was updated on the patient's troponin. Patient was started on metoprolol, atorvastatin, aspirin and heparin. Patient was updated on the results of the workup patient was comfortable the plan for admission and further cardiac workup. Differential Diagnosis Differential Diagnosis: Aortic dissection, NSTEMI, pulmonary embolism, STEMI, AFib Vital Signs Vital Signs: Vital Signs Temperature 98.3 F 06/16/24 05:26 Pulse Rate 74 06/16/24 05:26 Respiratory Rate 15 06/16/24 05:26 Blood Pressure 144/90 H 06/16/24 05:26 Pulse Oximetry 94 06/16/24 05:26 Oxygen Delivery Room Air 06/16/24 05:26 Temperature 98.3 F 06/16/24 05:26 Pulse Rate 74 06/16/24 05:26 Respiratory Rate 15 06/16/24 05:26 Blood Pressure 144/90 H 06/16/24 05:26 Pulse Oximetry 94 06/16/24 05:26 Oxygen Delivery Room Air 06/16/24 05:26 Lab Data Lab results reviewed: Yes I reviewed the patient's lab results. 06/16/24 05:33 06/16/24 05:33 Labs: Lab Results 06/16/24 Range/Units 05:33 WBC 10.7 H (4.5-10.0) K/mm3 RBC 5.24 (4.6-6.20) M/mm3 Hgb 15.3 (14.0-18.0) g/dL Hct 49.3 (42.0-52.0) % MCV 94.1 (80-100) fl MCH 29.2 (26-34) pg MCHC 31.0 L (32-36) g/dl RDW 14.5 (11.5-14.5) % Plt Count 276 (150-375) k/mm3 MPV 9.4 (7.4-10.4) fl Immature Gran % (Auto) 0.3 (0-0.5) % Neut % (Auto) 52.7 (45.5-73.1) % Lymph % (Auto) 18.9 (18.3-44.2) % [place] % (Auto) 4.8 (2.6-8.5) % Eos % (Auto) 22.2 H (0-4.4) % Baso % (Auto) 1.1 (0.2-1.2) % Lymph # (Auto) 2.03 (0.9-3.2) K/mm3 [place] # (Auto) 0.5 (0.1-0.6) K/mm3 Eos # (Auto) 2.4 H (0-0.3) K/mm3 Baso # (Auto) 0.1 (0.0-0.1) K/mm3 Abs Immat Gran (auto) 0.03 (0.00-0.031) K/mm3 Absolute Neuts (auto) 5.7 (1.3-6.7) K/mm3 Absolute Nucleated RBC 0.000 (0.0-0.012) K/mm3 Nucleated RBC % 0.0 (0.0-0.2) % PT 14.3 (11.1-14.7) Seconds INR 1.1 APTT 27.3 (22.3-36.8) Seconds Sodium 141 (137-145) mmol/L Potassium 4.0 (3.4-5.0) mmol/L Chloride 99 (98-107) mmol/L Carbon Dioxide 34 H (22-30) mmol/L Anion Gap 8 (4-12) mmol/L BUN 15 (9-20) mg/dL Creatinine 0.93 (0.7-1.3) mg/dL Estim Creat Clear Calc 68 ml/min Estimated GFR > 60 (59 - ) Glucose 144 H (65-110) mg/dL Calcium 9.0 (8.4-10.2) mg/dL Total Bilirubin 0.5 (0.2-1.3) mg/dL AST 34 (17-59) U/L ALT 19 (6-50) U/L Alkaline Phosphatase 96 (38-126) U/L Troponin I 2.320 H* (0.000-0.034) ng/mL Total Protein 8.0 (6.3-8.2) g/dL Albumin 4.3 (3.5-5.1) g/dL Triglycerides 92 (<150) mg/dL Cholesterol 117 (0-200) mg/dL LDL Cholesterol Direct 47 mg/dL HDL Direct 44 mg/dL Blood Type B Positive Antibody Screen Negative Imaging Data Radiologist's impression: Impressions Chest/Abdomen/Pelvis CTA 06/16/24 07:00 IMPRESSION: Thyroid goiter Diffuse esophageal wall thickening, possibly due to esophagitis Extensive coronary artery calcification Small pleural effusions, bilateral lower lobe infiltrate/atelectasis Prominent atherosclerosis of the thoracic and abdominal aorta without dissection; 4 cm fusiform infrarenal abdominal aortic aneurysm 1.4 cm right renal cyst Discharge Plan Discharge Clinical Impression: Non-ST elevation [place] (NSTEMI) Patient Disposition: Still a Patient Condition: Serious Patient Language: Yi Prescriptions: No Action fluticasone propion-salmeterol [Wixela Inhub] 250-50 mcg/dose blister with device 1 inh INHALATION BID carvedilol 12.5 mg tablet 12.5 mg PO BID lisinopril-hydrochlorothiazide 20-12.5 mg tablet 1 tablet PO QAM pantoprazole 40 mg tablet,delayed release (DR/EC) 40 mg PO QAM albuterol sulfate 90 mcg/actuation HFA aerosol inhaler 2 puff INHALATION Q4-5H PRN (Reason: Dyspnea) timolol maleate 0.5 % drops 1 drp EACH EYE BID aspirin 81 mg Tablet,Delayed Release (Dr/Ec) 81 mg PO QPM nicotine 7 mg/24 hr Patch 24 Hour 1 patch TRANSDERMAL DAILY cetirizine 10 mg Capsule 10 mg PO DAILY PRN (Reason: Congestion) docusate sodium [Colace] 100 mg capsule 100 mg PO DAILY Qty: 30 0RF hydrocodone-acetaminophen 5-325 mg tablet 1 - 2 tablet PO Q6H PRN (Reason: pain) Qty: 20 0RF hyoscyamine sulfate 0.125 mg tablet 0.125 mg PO Q6H PRN (Reason: bladder spasms) Qty: 20 2RF cephalexin 500 mg capsule 500 mg PO Q8H Qty: 9 0RF Follow-up/Referrals: Kristin,Carisa Begum MD [Primary Care Provider] -
[2024-06-16 05:50] LABS: INR 1.1; Prothrombin Time 14.3 Seconds (11.1-14.7)
[2024-06-16 05:51] LABS: Alanine Aminotransferase 19 U/L (6-50); Albumin Level 4.3 g/dL (3.5-5.1); Alkaline Phosphatase 96 U/L (38-126); Anion Gap 8 mmol/L (4-12); Aspartate Amino Transferase 34 U/L (17-59); Bilirubin,Total 0.5 mg/dL (0.2-1.3); Blood Urea Nitrogen 15 mg/dL (9-20); Carbon Dioxide 34 mmol/L (22-30); Chloride 99 mmol/L (98-107); Cholesterol 117 mg/dL (0-200); Estimated CRCL calculation 68 ml/min; Estimated Glomerular Filt Rate > 60; Glucose 144 mg/dL (65-110); HDL Direct 44 mg/dL; Partial Thromboplastin Time 27.3 Seconds (22.3-36.8); Sodium 141 mmol/L (137-145); Triglycerides 92 mg/dL (<150)
[2024-06-16] MEDS: SODIUM CHLORIDE 0.9% IV 1,000 ML 999 ML (05:59)
[2024-06-16] MEDS: MORPHINE SULFATE (*CRX) 2 MG/ML INJ IV PUSH ×2 (06:01→07:35)
[2024-06-16 06:02] LABS: LDL Cholesterol Direct 47 mg/dL
--- NOTE | 2024-06-16 07:35 | ECG_ITS ---
Test Date: 2024-06-16 05:50:55 Measurements Intervals [place] Rate: 70 P: 82 MT: 172 QRS: 69 QRSD: 105 T: -23 QT: 421 QTc: 457 Interpretive Statements SINUS RHYTHM WITH SINUS ARRHYTHMIA SLIGHT ST ELEVATION IN INFERIOR LEADS WITH V1 AND V2 ST DEPRESSION, CONSIDER INFERIOR POSTERIOR ACUTE INJURY PATTERN ABNORMAL ECG Electronically Signed On 06-16-2024 08:35:04 CAGE MAKER by Carson Harris M.D.
--- NOTE | 2024-06-16 07:36 | ECG_ITS ---
Test Date: 2024-06-16 05:56:17 Measurements Intervals [place] Rate: 65 P: 0 NM: 0 QRS: -26 QRSD: 161 T: 124 QT: 445 QTc: 466 Interpretive Statements PROBABLE SINUS RHYTHM MARKED ST ABNORMALITY, CONSIDER SUBENDOCARDIAL INJURY VERSUS ACUTE POSTERIOR INJURY PATTERN INTRAVENTRICULAR CONDUCTION DELAY [130+ ms QRS DURATION] CRITICAL ECG Compared to ECG 06/16/2024 05:50:55 Intraventricular conduction delay now present ST ABNORMALITIES WORSENED Electronically Signed On 06-16-2024 08:40:08 DATA ANALYST REPORT WRITER by Carson Harris M.D.
[2024-06-16] MEDS: HEPARIN SODIUM 5,000 UNITS/ML VIAL 4000 UNITS IV PUSH (08:14)
[2024-06-16] MEDS: HEPARIN SOD/D5W 100 UNITS/ML 25,000 UNITS/250 ML BAG 10 UNITS IV CONT (08:15)
[2024-06-16] MEDS: ONDANSETRON INJ 4 MG/2 ML VIAL (08:48)
--- NOTE | 2024-06-16 09:08 | PC.NURSE ---
took critical trop from Lab LVM for hospitalist to [facility]
--- NOTE | 2024-06-16 09:29 | P.CONCA_ITS ---
Assessment and Plan Assessment and plan (1) ACS (acute coronary syndrome): Code(s): I24.9 - Acute ischemic heart disease, unspecified Status: Acute Assessment and Plan: Patient has ECGs other concerning for inferior posterior insult/injury. He is still having pain at present. Troponins rising. He is on heparin. Continue beta-kelsey, aspirin 81 mg p.o. daily, atorvastatin 40 mg daily. 2D echocardiogram with Doppler will be ordered and reviewed. Given his ongoing symptoms, I discussed with Dr. Claudio who is in agreement with proceeding with urgent patient coronary angiogram. Patient verbalized understanding and is agreement. (2) Hypertension associated with diabetes: Code(s): E11.59 - Type 2 diabetes mellitus with other circulatory complications; I15.2 - Hypertension secondary to endocrine disorders Status: Acute Assessment and Plan: Continue carvedilol, lisinopril/hydrochlorothiazide and adjust and up titrate as need be. (3) Hyperlipidemia associated with type 2 diabetes mellitus: Code(s): E11.69 - Type 2 diabetes mellitus with other specified complication; E78.5 - Hyperlipidemia, unspecified Status: Acute Assessment and Plan: On atorvastatin (4) Former smoker: Code(s): Z87.891 - Personal history of nicotine dependence Status: Acute (5) Peripheral artery disease: Code(s): I73.9 - Peripheral vascular disease, unspecified Status: Acute Assessment and Plan: History of carotid endarterectomy History of Present Illness History of Present Illness Consult date/time: 06/16/24 09:29 Requesting physician: Thomas Alvarez MD Consult reason: chest pain and Other (ACS) Reason For Visit: STEMI Narrative: Date of service 06/16/2024 Reason for consultation: ACS, non-STEMI Requesting provider: Dr. Alvarez History patient is a 73-year-old male who came to the ER because of chest pain. He has been having intermittent chest pain for the past 1-2 months. It would last for a couple hours at a time and spontaneously subsided. Today however he had severe chest pain associated with diffuse diaphoresis as well as shortness of breath. He came to the hospital for further evaluation. Based on initial ECGs, there was conversation with Dr. Claudio to the emergency department about activating the STEMI. Pain did improve and repeat ECG was thought to be borderline and in decision was to cancel STEMI. Patient continues to have intermittent chest pain our. Troponins are elevated and rising. Upon my arrival and evaluation, patient is still having anterior chest pain which at times radiates across his chest and into his back. He denies any recent syncope, presyncope, paroxysmal nocturnal dyspnea, orthopnea, edema palpitation. Review of Systems 2 Review of Systems: All systems reviewed & are unremarkable except as noted in HPI and below Constitutional: Constitutional: Denies body ache(s) Eyes: Eyes: Denies blurry vision ENT: Reports Normal hearing present Cardiovascular: Cardiovascular: Reports chest pain Respiratory: Respiratory: Reports dyspnea Gastrointestinal: Gastrointestinal: Denies abdominal pain Genitourinary: Genitourinary: Denies hematuria Musculoskeletal: Musculoskeletal: Denies back pain Integumentary/Breasts: Skin/Breast: Denies erythema Neurologic: Denies Abnormal speech present Psychiatric: Psychiatric: Denies anxiety Endocrine: Endocrine: Reports excessive sweating Hematologic/Lymphatic: Hematologic/Lymphatic: Denies easy bleeding Allergic/Immunologic: Allergic/Immunologic: Denies GI upset with certain foods PMFSH Past Medical History Medical History (Updated 06/16/24 @ 09:39 by Carson Harris MD) COPD (chronic obstructive pulmonary disease) Hyperlipidemia HTN (hypertension) Surgical History Surgical History (Updated 07/07/22 @ 06:56 by Silivo Woods MD) H/O carotid endarterectomy Family History Family History (Updated 06/16/24 @ 09:35 by Carson Harris MD) Father COPD (chronic obstructive pulmonary disease) Social History Social History Smoking packs per day: 0.5 Smoking cigarettes per day: 10.0 Years smoked: 55 Smoking pack-years: 27.50 Smoking status: Current every day smoker Tobacco type: cigarettes Additional smoking assessment comments: DECREASING SMOKING SINCE 2021, 4 CIG/DAY/TAPERING NICOTINE PATCH Alcohol intake: former Alcohol use details: QUIT 2018, HEAVY DRINKER PRIOR Substance use: never Lack of Transportation: No Lack of Food: Never True Current Housing: I Have Housing Concerned About Future Housing: No Difficulty Paying Gas/Electric Bills: No Difficulty Paying for Meds: No Currently Unemployed: No Education: High School Diploma/GED Difficulty w/ Childcare or Family Care: No Living arrangements: alone Spiritual care concerns: No Meds Home Medications and Allergies Home Medications ?Medication ?Instructions ?Recorded ?Confirmed ?Type albuterol sulfate 90 mcg/actuation 2 puff inhalation Q4-5H PRN Dyspnea 06/27/22 07/07/22 History aerosol inhaler aspirin 81 mg tablet,delayed 81 mg PO QPM 06/27/22 07/07/22 History release carvedilol 12.5 mg tablet 12.5 mg PO BID 06/27/22 07/07/22 History cetirizine 10 mg capsule 10 mg PO DAILY PRN Congestion 06/27/22 07/07/22 History fluticasone 250 mcg-salmeterol 50 1 inh inhalation BID 06/27/22 07/07/22 History mcg/dose blistr powdr for inhalation (Lelo Inhub) lisinopril 20 1 tablet PO QAM 06/27/22 07/07/22 History mg-hydrochlorothiazide 12.5 mg tablet nicotine 7 mg/24 hr daily 1 patch transdermal DAILY 06/27/22 07/07/22 History transdermal patch pantoprazole 40 mg tablet,delayed 40 mg PO QAM 06/27/22 07/07/22 History release timolol maleate 0.5 % eye drops 1 drp EACH EYE BID 06/27/22 07/07/22 History cephalexin 500 mg capsule 500 mg PO Q8H #9 caps 07/08/22 Rx docusate sodium 100 mg capsule 100 mg PO DAILY #30 caps 07/08/22 Rx (Colace) hydrocodone 5 mg-acetaminophen 325 1 - 2 tablet PO Q6H PRN pain #20 07/08/22 Rx mg tablet tabs hyoscyamine sulfate 0.125 mg tablet 0.125 mg PO Q6H PRN bladder spasms 07/08/22 Rx #20 tabs Allergies Allergy/AdvReac Type Severity Reaction Status Date / Time No Known Allergies Allergy Verified 06/16/24 05:34 Vital Signs Vital Signs - 24 hr 06/16/24 05:26 06/16/24 07:15 06/16/24 08:00 Temperature 36.8 C Pulse Rate 74 73 71 Respiratory Rate 15 16 16 Blood Pressure 144/90 H 122/70 119/69 Pulse Oximetry 94 99 99 Oxygen Delivery Room Air 06/16/24 08:30 06/16/24 09:00 Temperature Pulse Rate 64 64 Respiratory Rate 16 16 Blood Pressure 114/61 114/59 L Pulse Oximetry 96 97 Oxygen Delivery Exam 2 Narrative: Awake alert oriented. Appears to be in mild distress. Appears stated age Const: General: in distress and uncomfortable HENMT: Ears: TM's normal bilaterally Face/Nose/Sinus: Normal nares present Eyes: General: appearance normal, both eyes and all related structures S clera: sclerae normal Neck: Neck: supple and no JVD Chest: Other: No reproducible chest wall pain to palpation Resp: Effort & Inspection: normal respiratory effort Auscultation: clear to auscultation bilaterally Cardio: Rate: regular rate Rhythm: regular rhythm Heart sounds: no murmurs GI: Inspection: non-distended GI Palp: Yes Soft to palpation Skin: General skin exam: normal color and no rashes or lesions noted Other: Diaphoretic Neuro: Speech: normal speech Sensory Exam: normal sensation Extrem: General: normal to inspection Psych: Mental Status: mental status grossly normal Affect: Anxious affect present Results Labs and Meds 06/16/24 05:33 06/16/24 05:33 Lab results: Cardiac Enzymes 06/16/24 06/16/24 Range/Units 05:33 08:24 AST 34 (17-59) U/L Troponin I 2.320 H* 4.600 H* D (0.000-0.034) ng/mL Coagulation 06/16/24 Range/Units 05:33 PT 14.3 (11.1-14.7) Seconds APTT 27.3 (22.3-36.8) Seconds Lipids 06/16/24 Range/Units 05:33 Triglycerides 92 (<150) mg/dL Cholesterol 117 (0-200) mg/dL CBC 06/16/24 Range/Units 05:33 WBC 10.7 H (4.5-10.0) K/mm3 RBC 5.24 (4.6-6.20) M/mm3 Hgb 15.3 (14.0-18.0) g/dL Hct 49.3 (42.0-52.0) % Plt Count 276 (150-375) k/mm3 Lymph # (Auto) 2.03 (0.9-3.2) K/mm3 [place] # (Auto) 0.5 (0.1-0.6) K/mm3 Eos # (Auto) 2.4 H (0-0.3) K/mm3 Baso # (Auto) 0.1 (0.0-0.1) K/mm3 Comprehensive Metabolic Panel 06/16/24 Range/Units 05:33 Sodium 141 (137-145) mmol/L Potassium 4.0 (3.4-5.0) mmol/L Chloride 99 (98-107) mmol/L Carbon Dioxide 34 H (22-30) mmol/L BUN 15 (9-20) mg/dL Creatinine 0.93 (0.7-1.3) mg/dL Glucose 144 H (65-110) mg/dL Calcium 9.0 (8.4-10.2) mg/dL AST 34 (17-59) U/L ALT 19 (6-50) U/L Alkaline Phosphatase 96 (38-126) U/L Total Protein 8.0 (6.3-8.2) g/dL Albumin 4.3 (3.5-5.1) g/dL Patient Weight 06/16/24 23:59 Weight 90.4 kg Serial EKGs are personally reviewed and independently interpreted. Initial EKG shows borderline ST elevation with some ST segment depression in V1 V2 which may be related to posterior extension. Follow-up EKG shows worsening of the ST segment depressions in septal leads. Subsequent EKG shows a IVCD and is markedly depressed ST segments consistent with subendocardial injury.
--- NOTE | 2024-06-16 09:37 | PC.NURSE ---
0910 Dr Claudio 0912 O/H 0913 Teddy 0914 [facility] ETA 45min
--- NOTE | 2024-06-16 10:09 | WPDHPUPDATE1 ---
History and Physical Update Update Date/Time: 06/16/24 09:50 History and Physical has been reviewed, including an updated exam of the patient. There are NO changes in the patient's condition. Risks, benefits, and alternatives have been discussed and questions answered. Patient agrees to proceed with procedure.
--- NOTE | 2024-06-16 10:09 | WPDMODSED ---
Moderate Sedation Note-Pt Data Patient Data Allergies Allergy/AdvReac Type Severity Reaction Status Date / Time No Known Allergies Allergy Verified 06/16/24 05:34 Home Medications ?Medication ?Instructions ?Recorded ?Confirmed ?Type albuterol sulfate 90 mcg/actuation 2 puff inhalation Q4-5H PRN Dyspnea 06/27/22 07/07/22 History aerosol inhaler aspirin 81 mg tablet,delayed 81 mg PO QPM 06/27/22 07/07/22 History release carvedilol 12.5 mg tablet 12.5 mg PO BID 06/27/22 07/07/22 History cetirizine 10 mg capsule 10 mg PO DAILY PRN Congestion 06/27/22 07/07/22 History fluticasone 250 mcg-salmeterol 50 1 inh inhalation BID 06/27/22 07/07/22 History mcg/dose blistr powdr for inhalation (Wixela Inhub) lisinopril 20 1 tablet PO QAM 06/27/22 07/07/22 History mg-hydrochlorothiazide 12.5 mg tablet nicotine 7 mg/24 hr daily 1 patch transdermal DAILY 06/27/22 07/07/22 History transdermal patch pantoprazole 40 mg tablet,delayed 40 mg PO QAM 06/27/22 07/07/22 History release timolol maleate 0.5 % eye drops 1 drp EACH EYE BID 06/27/22 07/07/22 History cephalexin 500 mg capsule 500 mg PO Q8H #9 caps 07/08/22 Rx docusate sodium 100 mg capsule 100 mg PO DAILY #30 caps 07/08/22 Rx (Colace) hydrocodone 5 mg-acetaminophen 325 1 - 2 tablet PO Q6H PRN pain #20 07/08/22 Rx mg tablet tabs hyoscyamine sulfate 0.125 mg tablet 0.125 mg PO Q6H PRN bladder spasms 07/08/22 Rx #20 tabs Current Medications: Active Medications Aspirin (Aspirin 81 Mg Enteric Tablet) 81 mg PO DAILY [place] Atorvastatin Calcium (Atorvastatin 40 Mg Tablet) 40 mg PO DAILY [place] Carvedilol (Carvedilol 6.25 Mg Tablet) 6.25 mg PO Q12HR [place] Heparin Sodium (Porcine) (Heparin Sodium 5,000 Units/Ml Vial) 4,000 units IV PUSH PRN PRN PRN Reason: aPTT less than 55 seconds Heparin Sodium (Porcine) (Heparin Sodium 5,000 Units/Ml Vial) 3,500 units IV PUSH PRN PRN PRN Reason: aPTT 55 - 70 seconds Heparin Sodium/Dextrose (Heparin Sodium/D5w 100 Units/Ml) 25,000 units in 250 mls @ 10 mls/hr IV CONT .Q24H [facility]; Protocol Last Admin: 06/16/24 08:15 Dose: 1,000 units/hr, 10 mls/hr Metoprolol Tartrate (Metoprolol Tartrate 25 Mg Tablet) 25 mg PO Q12HR [facility] Sedation/Anesthesia: No previous sedation/anesthesia problems (including family history). [facility] Past Medical History Medical History (Updated 06/16/24 @ 09:39 by Carson Harris MD) COPD (chronic obstructive pulmonary disease) Hyperlipidemia HTN (hypertension) Surgical History Surgical History (Updated 07/07/22 @ 06:56 by Silvio Woods MD) H/O carotid endarterectomy Family History Family History (Updated 06/16/24 @ 09:35 by Carson Harris MD) Father COPD (chronic obstructive pulmonary disease) Social History Social History Smoking packs per day: 0.5 Smoking cigarettes per day: 10.0 Years smoked: 55 Smoking pack-years: 27.50 Smoking status: Current every day smoker Tobacco type: cigarettes Additional smoking assessment comments: DECREASING SMOKING SINCE 2021, 4 CIG/DAY/TAPERING NICOTINE PATCH Alcohol intake: former Alcohol use details: QUIT 2018, HEAVY DRINKER PRIOR Substance use: never Lack of Transportation: No Lack of Food: Never True Current Housing: I Have Housing Concerned About Future Housing: No Difficulty Paying Gas/Electric Bills: No Difficulty Paying for Meds: No Currently Unemployed: No Education: High School Diploma/GED Difficulty w/ Childcare or Family Care: No Living arrangements: alone Spiritual care concerns: No Mod Sed Physical Exam Physical Exam Pre Procedural Exam: Normal: Lungs, Heart Rate and Heart Rhythm Hours since solid foods: 12 Hours since liquid intake: 12 Mallampati Classification: class II Internal Medicine - PN: Obj Da Vital Signs Vital Signs: Vital Signs - 24 hr 06/16/24 05:26 06/16/24 07:15 06/16/24 08:00 Temperature 36.8 C Pulse Rate 74 73 71 Respiratory Rate 15 16 16 Blood Pressure 144/90 H 122/70 119/69 Pulse Oximetry 94 99 99 Oxygen Delivery Room Air 06/16/24 08:30 06/16/24 09:00 06/16/24 10:01 Temperature Pulse Rate 64 64 70 Respiratory Rate 16 16 12 Blood Pressure 114/61 114/59 L 124/69 Pulse Oximetry 96 97 100 Oxygen Delivery Intake/Output Intake/Output: Intake & Output 06/13/24 06/14/24 06/15/24 06/16/24 23:59 23:59 23:59 23:59 Intake Total 1000 Balance 1000 Meds/Results Medications: Active Medications Generic Name Dose Route Start Last Admin Trade Name Freq PRN Reason Stop Dose Admin Aspirin 81 mg 06/16/24 09:00 Aspirin 81 Mg Enteric Tablet PO DAILY [facility] Atorvastatin Calcium 40 mg 06/16/24 09:00 Atorvastatin 40 Mg Tablet PO DAILY [facility] Carvedilol 6.25 mg 06/16/24 09:00 Carvedilol 6.25 Mg Tablet PO Q12HR [facility] Heparin Sodium (Porcine) 4,000 units 06/16/24 07:32 Heparin Sodium 5,000 Units/Ml Vial IV PUSH PRN PRN aPTT less than 55 seconds Heparin Sodium (Porcine) 3,500 units 06/16/24 07:32 Heparin Sodium 5,000 Units/Ml Vial IV PUSH PRN PRN aPTT 55 - 70 seconds Heparin Sodium/Dextrose 25,000 units in 250 mls @ 10 mls/hr 06/16/24 07:35 06/16/24 08:15 Heparin Sodium/D5w 100 Units/Ml IV CONT 1,000 units/hr .Q24H [facility] 10 mls/hr Administration Protocol 1,000 UNITS/HR Metoprolol Tartrate 25 mg 06/16/24 09:00 Metoprolol Tartrate 25 Mg Tablet PO Q12HR [facility] Radiology Results: ITS Impressions Chest/Abdomen/Pelvis CTA 06/16/24 07:00 IMPRESSION: Thyroid goiter Diffuse esophageal wall thickening, possibly due to esophagitis Extensive coronary artery calcification Small pleural effusions, bilateral lower lobe infiltrate/atelectasis Prominent atherosclerosis of the thoracic and abdominal aorta without dissection; 4 cm fusiform infrarenal abdominal aortic aneurysm 1.4 cm right renal cyst Labs 06/16/24 05:33 06/16/24 05:33 Labs: Laboratory Results - last 24 hr 06/16/24 06/16/24 05:33 08:24 WBC 10.7 H RBC 5.24 Hgb 15.3 Hct 49.3 MCV 94.1 MCH 29.2 MCHC 31.0 L RDW 14.5 Plt Count 276 MPV 9.4 Immature Gran % (Auto) 0.3 Neut % (Auto) 52.7 Lymph % (Auto) 18.9 [place] % (Auto) 4.8 Eos % (Auto) 22.2 H Baso % (Auto) 1.1 Lymph # (Auto) 2.03 [place] # (Auto) 0.5 Eos # (Auto) 2.4 H Baso # (Auto) 0.1 Abs Immat Gran (auto) 0.03 Absolute Neuts (auto) 5.7 Absolute Nucleated RBC 0.000 Nucleated RBC % 0.0 PT 14.3 INR 1.1 APTT 27.3 Sodium 141 Potassium 4.0 Chloride 99 Carbon Dioxide 34 H Anion Gap 8 BUN 15 Creatinine 0.93 Estim Creat Clear Calc 68 Estimated GFR > 60 Glucose 144 H Calcium 9.0 Total Bilirubin 0.5 AST 34 ALT 19 Alkaline Phosphatase 96 Troponin I 2.320 H* 4.600 H* D Total Protein 8.0 Albumin 4.3 Triglycerides 92 Cholesterol 117 LDL Cholesterol Direct 47 HDL Direct 44 Blood Type B Positive Antibody Screen Negative ASA Classification/Sedation ASA Classification/Sedation ASA Class: III Emergent: Yes Risks: Risks, benefits and alternatives explained and patient/family accepted plan for sedation. Patient re-evaluated immediately prior to sedation.
--- NOTE | 2024-06-16 10:29 | ECG_ITS ---
Test Date: 2024-06-16 08:54:33 Measurements Intervals [place] Rate: 61 P: 72 MO: 166 QRS: 69 QRSD: 103 T: -13 QT: 436 QTc: 442 Interpretive Statements SINUS RHYTHM WITH MARKED SINUS ARRHYTHMIA NONSPECIFIC T-WAVE ABNORMALITY ABNORMAL ECG Electronically Signed On 06-16-2024 15:32:15 TEST EXAMINER by Carson Harris M.D.
[2024-06-16 11:38] LABS: Activated Clotting Time 273 SEC (74-137)
[2024-06-16 11:38] LABS: Activated Clotting Time 222 SEC (74-137)
--- NOTE | 2024-06-16 11:38 | WPDCARDPROC ---
Cardiac Cath Procedure Note Date of procedure:: 06/16/24 Performing physician:: CATHETERIZATION LABORATORY REPORT Procedure Date: 06/16/2024 Referring Physician: Dr. Harris Anesthesia: Versed and Fentanyl were ordered and given in my presence at 1024, procedure ended at 1132. Supervision of nurse, Hien Goodwin monitored moderate sedation with 2mg Versed and 100mcg Fentanyl was provided for 68 minutes. Pre-op Diagnosis: NSTEMI Post-op Diagnosis: NSTEMI Procedure(s): Left heart catheterization with coronary angiography Access Site: Right common femoral artery Brief History and Clinical Indications: 73-year-old man with hypertension and carotid artery stenosis status post right CEA presented with sudden-onset chest discomfort at 1:00 a.m. whose clinical presentation is consistent with non ST elevation [place] with high risk electrical disturbances including dynamic EKG changes for which cardiac catheterization with PCI was urgently performed All risks, benefits and alternatives to left heart catheterization with or without percutaneous coronary intervention was discussed at length with the patient. Risk of complications including but not limited to bleeding, infection, arrhythmia, stroke, worsening kidney function, blood loss, groin hematoma, limb loss, emergency coronary artery bypass grafting, and even were discussed with the patient and all questions were answered. The patient understood and wished to proceed. Time out called, patient name, date of , medical record number, allergies, procedure performed, identify Property Insurance Agent, patient and staff member concurred with accurate data, procedure carried on. Findings: LEFT HEART CATHETERIZATION FINDINGS: 1. Left main: The left main coronary artery has 10-20% distally. 2. Left anterior descending: The LAD gives off 1 small diagonal branch and in its midbody bifurcates into a dual LAD system. The ostial LAD has 10-20% stenosis. The mid LAD at the level of 2nd septal branch has a 90-95% stenosis. 3. Left circumflex: The left circumflex artery gives off 3 OM branches. The ostial left circumflex has 10-20% stenosis and immediately gives off the 1st OM branch. The 1st OM branch is a large caliber vessel that reaches the lateral apex and has a myocardial bridge in its midbody otherwise has 20-30% stenosis in its proximal body. The OM2 vessel is a moderate caliber vessel that also has myocardial bridge otherwise has luminal irregularities. The OM 3 is a moderate caliber vessel with luminal irregularities. The remainder of the left circumflex continues on into the AV groove and has no high-grade angiographic stenosis. 4. Right coronary artery: The RCA is a large dominant vessel that has a severe 99% stenosis in the distal RCA leading into the RPL branch. The RPDA at its ostium has 20-30% stenosis. The mid body of the RPDA has 50-60% stenosis.. 5. Left ventricle: A. End-diastolic pressure 23 mmHg. B. LV gram deferred. C. No significant gradient across aortic valve on catheter pullback. 6. Opening AO pressure 133/74 and closing AO pressure 122/60 Description of Procedure: Informed consent signed and placed in the chart. Patient transferred to r&d lab technician room. Prepped and draped in usual sterile fashion. 2% lidocaine in right groin area. Micropuncture needle used to access right common femoral artery with Seldinger technique under ultrasound guidance. J wire advanced, micropuncture cannula placed and exchanged out for a 6 [place] sheath. JL4 diagnostic catheter engaged Left Main Coronary Artery. JR4 diagnostic catheter engaged Right Coronary Artery. Multiple orthogonal angiogram obtained and reviewed JR4 diagnostic catheter crossed aortic valve to obtain LVEDP, LV angiogram deferred. There were no pigtails available. Procedure Description for PCI: Heparin was used for anticoagulation (ACT maintained above 250) Patient loaded with heparin at 70 units/kg. 6F JR4 guide catheter was used to engage the RCA. A 0.014 Runthrough wire was passed into the distal rPL. The distal RCA into the proximal rPL was predilated with a 2.0 x 15mm semi-compliant balloon. A 3.0 x 34mm Asher Mart ADILIA was then deployed from the distal RCA into the proximal rPL branch and inflated to nominal pressures. At this time it was noted, there is severe 99% stenosis in the mid body of RPL branch with FAVIAN 2 flow. 200 mcg of nitroglycerin was administered into the right coronary artery on 2 separate occasions with resolution of the stenosis and buddhist of FAVIAN 3 flow suggesting of vasospasm. A 3.25 x 15mm NC balloon was then used to post dilate the distal RCA to high rox with good angiographic results. The ostium of the rPDA has 50-60% stenosis with FAVIAN 3 flow and this was not deem significant and will be medically managed given the increased risk for bifurcation stenting should this be dilated. Attention was then turned to the mid LAD lesion where a 6F CLS3.5 guide catheter was used to engage the LMCA. A 0.014 Runthough coronary wire was passed in to the distal LAD. The lesion was pre-dilated with a 2.0 x 15mm balloon inflated to high ROX. A 2.5 x 22mm Orsiro ADILIA (did not have Cooter in the appropriate size and thus different brand then initial stent brand was used) was successfully deployed into the mid LAD to high rox. Intracoronary NTG was administered. Follow-up angiograms showed an good result Coronary wire and guide-catheter were removed Pre-procedure - FAVIAN 3 flow Post-procedure - FAVIAN 3 flow No angiographic complications identified. Hemostasis was achieved with a 6 [place] Angio-Seal device. Assessment: Successful PCI to the distal RCA into the rPL branch with a 3.0 x 34mm Asher Mart ADILIA; post dilated with a 3.25 x 15mm NC to high rox with good angiographic results. Successful PCI to the mid LAD with a 2.5 x 22mm Orsiro ADILIA (no Asher in correct size at this time and thus the different brand chosen) to high rox with good angiographic results. Post Operative Condition: Stable No significant blood loss Disposition: Floor Plan: ASA 81mg PO indefinitely and Brilinta 90mg PO BID Atorvastatin 80mg every evening Beta blockers Aggressive risk factor modification TTE Jose Claudio Interventional Cardiology
[2024-06-16] MEDS: ASPIRIN 81 MG ENTERIC TABLET PO (13:04)
--- NOTE | 2024-06-16 13:04 | P.HP_ITS ---
H&P: HPI History of Present Illness Date/Time: 06/16/24 13:04 Chief Complaint: chest pain Narrative: 73-year-old male with history of congestive heart failure with no history of coronary disease present in the emergency department for evaluation for intermittent chest pain. Patient reports over the course of the last month he has had 6 episodes of intense chest pain. Patient states this morning at approximately 2 AM he had intense 9/10 chest pain that radiated to his back. Patient states the pain lasted until approximately 5:00 a.m. have when he called EMS. Upon arrival to the scene patient had EKG showing normal sinus rhythm, patient did walk out to the truck coming out to the EMS rig he had some ST changes. EMS was concerned and called a code STEMI. Arrival to the emergency department patient's EKG did not appear to be STEMI and this was discussed with Cardiology-STEMI was canceled.in the ED, his vitals were stable. laboratory workup revealed mild leukocytsois at 10.7, hb 15, chem panel u nremarkable. troponin came back elevated at 2.32. with subsequent level at 4 and further at 9.9 CTA chest abdomen and pelvis performed showed thyroid goiter, diffuse eospahgeal wall thicekning, possibly due to eophsagitis, extensive coronary artery calcification, small pleural effusions, bialteral lower lobe infiltrate/atelectasis, prominent atherosclerosis of the thoracic and abdominal aorta without dissection, 4 cm fusiform infrarenal abdomianl aortic aneurysm. 1.4 cm right renal cyst. he was started on heparin gtt, received aspirin. cardiology was consulted. with subsequent level of troponin elevated to 4 and EKG changes and persistent chest pian, patient was taken for cardiac cath urgently. he got successful PCI to distal RCA intot he rPL brach and mid LAD. . he will continue on aspirin 81, brillinta, atorvastatin, bb. TTE is ordered as well. he is admitted to ICU for further treatment. Review of Systems Review of Systems: - CONSTITUTIONAL: Denies weight loss, fe jaylan and chills. - HEENT: Denies changes in vision and he aring - RESPIRATORY: Denies SOB and cough. - CV: Denies palpitations and reports CP . - GI: Denies abdominal pain, nausea, vom iting and diarrhea. - : Denies dysuria and urinary frequen cy. - MSK: Denies myalgia and joint pain. - SKIN: Denies rash and pruritus. - NEUROLOGICAL: Denies headache and sync ope. - PSYCHIATRIC: Denies recent changes in mood. Denies anxiety and depression. [facility] Past Medical History Medical History (Updated 06/16/24 @ 09:39 by Carson Harris MD) COPD (chronic obstructive pulmonary disease) Hyperlipidemia HTN (hypertension) Surgical History Surgical History (Updated 07/07/22 @ 06:56 by Silvio Woods MD) H/O carotid endarterectomy Family History Family History (Updated 06/16/24 @ 09:35 by Carson Harris MD) Father COPD (chronic obstructive pulmonary disease) Social History Social History Smoking packs per day: 0.5 Smoking cigarettes per day: 10.0 Years smoked: 55 Smoking pack-years: 27.50 Smoking status: Former smoker Tobacco type: cigarettes Additional smoking assessment comments: Quit 1.5 years ago Alcohol intake: never Alcohol use details: QUIT 2018, HEAVY DRINKER PRIOR Substance use: never Substance use type: does not use Do You Feel Safe in your Home?: Yes Lack of Transportation: No Lack of Food: Never True Current Housing: I Have Housing Concerned About Future Housing: No Difficulty Paying Gas/Electric Bills: No Difficulty Paying for Meds: No Currently Unemployed: No Education: High School Diploma/GED Difficulty w/ Childcare or Family Care: No Living arrangements: alone Spiritual care concerns: No Meds Home Medications and Allergies Home Medications ?Medication ?Instructions ?Recorded ?Confirmed ?Type albuterol sulfate 90 mcg/actuation 2 puff inhalation Q4-5H PRN Dyspnea 06/27/22 06/16/24 History aerosol inhaler aspirin 81 mg tablet,delayed 81 mg PO QPM 06/27/22 06/16/24 History release carvedilol 12.5 mg tablet 12.5 mg PO BID 06/27/22 06/16/24 History cetirizine 10 mg capsule 10 mg PO DAILY PRN Congestion 06/27/22 06/16/24 History fluticasone 250 mcg-salmeterol 50 1 inh inhalation BID 06/27/22 06/16/24 History mcg/dose blistr powdr for inhalation (Wixela Inhub) lisinopril 20 1 tablet PO QAM 06/27/22 06/16/24 History mg-hydrochlorothiazide 12.5 mg tablet pantoprazole 40 mg tablet,delayed 40 mg PO QAM 06/27/22 06/16/24 History release cephalexin 500 mg capsule 500 mg PO Q8H #9 caps 07/08/22 06/16/24 Rx docusate sodium 100 mg capsule 100 mg PO DAILY #30 caps 07/08/22 06/16/24 Rx (Colace) hyoscyamine sulfate 0.125 mg tablet 0.125 mg PO Q6H PRN bladder spasms 07/08/22 06/16/24 Rx #20 tabs cholecalciferol (vitamin D3) 25 1,000 unit PO DAILY 06/16/24 06/16/24 History mcg (1,000 unit) tablet (Vitamin D3) dorzolamide 22.3 mg-timolol 6.8 1 drp EACH EYE Q12H 06/16/24 06/16/24 History mg/mL eye drops empagliflozin 10 mg tablet 10 mg PO DAILY 06/16/24 06/16/24 History (Jardiance) latanoprost 0.005 % eye drops 1 drp EACH EYE QPM 06/16/24 06/16/24 History Allergies Allergy/AdvReac Type Severity Reaction Status Date / Time No Known Allergies Allergy Verified 06/16/24 05:34 Vital Signs Vital Signs - 24 hr 06/16/24 05:26 06/16/24 07:15 06/16/24 08:00 Temperature 98.3 F Pulse Rate 74 73 71 Respiratory Rate 15 16 16 Blood Pressure 144/90 H 122/70 119/69 Pulse Oximetry 94 99 99 Oxygen Delivery Room Air 06/16/24 08:30 06/16/24 09:00 06/16/24 10:01 Temperature Pulse Rate 64 64 70 Respiratory Rate 16 16 12 Blood Pressure 114/61 114/59 L 124/69 Pulse Oximetry 96 97 100 Oxygen Delivery 06/16/24 12:07 06/16/24 12:22 06/16/24 12:37 Temperature Pulse Rate 66 69 75 Respiratory Rate 16 26 H 24 H Blood Pressure 130/77 134/73 134/73 Pulse Oximetry 81 L 96 97 Oxygen Delivery Exam Narrative: APPEARANCE: Well appearing, no pain, no distress, well-nourished. HEAD: normocephalic, atraumatic. EYES: PERRLA/EOMI, conjunctivae clear. NOSE: Normal no drainage EARS:TMS clear with good light reflex. THROAT: Pharynx clear, no exudate. NECK: Supple. No adenopathy, no masses. RESPIRATORY: Clear to auscultation bilaterally, no rales, rhonchi, wheezing. CARDIOVASCULAR: Regular rate and rhythm without murmurs rubs or gallops. ABDOMINAL: Soft, nontender, nondistended, normal bowel sounds MUSCULOSKELETAL: Moves all extremities. Strength/ROM intact, No edema, No calf tenderness. NEURO: Alert. Cranial nerves II through XII intact. Good gait. Good coordination SKIN: Warm, dry. Normal Color H&P: Results Labs Labs: Short CBC 06/16/24 Range/Units 05:33 WBC 10.7 H (4.5-10.0) K/mm3 Hgb 15.3 (14.0-18.0) g/dL Hct 49.3 (42.0-52.0) % Plt Count 276 (150-375) k/mm3 BMP 06/16/24 05:33 Sodium 141 Potassium 4.0 Chloride 99 Carbon Dioxide 34 H BUN 15 Creatinine 0.93 Glucose 144 H Calcium 9.0 Cardiac Enzymes 06/16/24 06/16/24 06/16/24 Range/Units 05:33 08:24 12:20 Troponin I 2.320 H* 4.600 H* D 9.960 H* D (0.000-0.034) ng/mL Liver Function 06/16/24 Range/Units 05:33 Total Bilirubin 0.5 (0.2-1.3) mg/dL AST 34 (17-59) U/L ALT 19 (6-50) U/L Alkaline Phosphatase 96 (38-126) U/L Albumin 4.3 (3.5-5.1) g/dL Assessment and Plan Assessment and plan (1) Non-ST elevation NM (NSTEMI): Code(s): I21.4 - Non-ST elevation (NSTEMI) myocardial infarction Status: Acute (2) Peripheral artery disease: Code(s): I73.9 - Peripheral vascular disease, unspecified Status: Acute (3) Hyperlipidemia associated with type 2 diabetes mellitus: Code(s): E11.69 - Type 2 diabetes mellitus with other specified complication; E78.5 - Hyperlipidemia, unspecified Status: Acute (4) Hypertension associated with diabetes: Code(s): E11.59 - Type 2 diabetes mellitus with other circulatory complications; I15.2 - Hypertension secondary to endocrine disorders Status: Acute (5) Former smoker: Code(s): Z87.891 - Personal history of nicotine dependence Status: Acute (6) Prostate cancer: Code(s): C61 - Malignant neoplasm of prostate Status: Acute Plan 73-year-old male with history of congestive heart failure with no history of coronary disease present in the emergency department for evaluation for intermittent chest pain. Patient reports over the course of the last month he has had 6 episodes of intense chest pain. Patient states this morning at approximately 2 AM he had intense 9/10 chest pain that radiated to his back. Patient states the pain lasted until approximately 5:00 a.m. have when he called EMS. Upon arrival to the scene patient had EKG showing normal sinus rhythm, patient did walk out to the truck coming out to the EMS rig he had some ST changes. EMS was concerned and called a code STEMI. Arrival to the emergency department patient's EKG did not appear to be STEMI and this was discussed with Cardiology-STEMI was canceled.in the ED, his vitals were stable. laboratory workup revealed mild leukocytsois at 10.7, hb 15, chem panel unremarkable. troponin came back elevated at 2.32. with subsequent level at 4 and further at 9.9 CTA chest abdomen and pelvis performed showed thyroid goiter, diffuse eospahgeal wall thicekning, possibly due to eophsagitis, extensive coronary artery calcification, small pleural effusions, bialteral lower lobe infiltrate/atelectasis, prominent atherosclerosis of the thoracic and abdominal aorta without dissection, 4 cm fusiform infrarenal abdomianl aortic aneurysm. 1.4 cm right renal cyst. he was started on heparin gtt, received aspirin. cardiology was consulted. with subsequent level of troponin elevated to 4 and EKG changes and persistent chest pian, patient was taken for cardiac cath urgently. he got successful PCI to distal RCA intot he rPL brach and mid LAD. . he will continue on aspirin 81, brillinta, atorvastatin, bb. TTE is ordered as well. htn hlp ldl 47 former smoker hx of carotid endarterectomy type 2 diabetes will check a1c hx of prostatectomy s/p prostatecotmy 2022 dvt proph code status: DNR
[2024-06-16] MEDS: carvediloL 6.25 MG TABLET PO ×2 (13:05→20:26)
[2024-06-16] MEDS: ATORVASTATIN 40 MG TABLET PO (13:05)
[2024-06-16] MEDS: SODIUM CHLORIDE 0.9% IV 1,000 ML 125 ML IV CONT (13:11)
[2024-06-16 13:26] LABS: Hemoglobin A1C 6.2 % (<5.7)
--- NOTE | 2024-06-16 13:39 | PC.NURSE ---
This patient, Mc Colon, was admitted to Intensive Care Unit-11 [id number]. Patient/family oriented to hospital policies and general routines including ID bracelet, bed and alarms, visiting hours, pain management, procedures, bathroom and other care routines, personal items, smoking policy, room service/diet, and visiting hours. Information on how to activate the Rapid Response Team has been discussed. Patient/Family are encouraged to report perceived risks to care and to ask questions if they do not understand what they are told or what they should do.
[2024-06-16] MEDS: ONDANSETRON INJ 4 MG/2 ML VIAL IV PUSH (15:13)
[2024-06-16] MEDS: LATANOPROST 0.005% OP SOLN 2.5 ML BTL 1 DROP EACH EYE (17:57)
--- NOTE | 2024-06-16 18:30 | PC.NURSE ---
Notified RT that patient will need a CPAP at night
[2024-06-16] MEDS: TICAGRELOR 90 MG TABLET PO (20:27)
[2024-06-16] MEDS: FLUTICASONE/SALMETEROL 115-21 MCG INHALER 1 PUFF 2 PUFF INHALATION (21:33)
[2024-06-17] VITALS (16 sets, daily range): BP systolic 118–146; BP diastolic 47–77; PULSE 51–67; RESP 15–20; TEMP 36.3–36.9; O2SAT 89–97
[2024-06-17 04:01] LABS: Basophils Absolute Auto 0.1 K/mm3 (0.0-0.1); Basophils Percent Auto 0.9 % (0.2-1.2); Eosinophils Absolute Auto 1.9 K/mm3 (0-0.3); Hematocrit 43.5 % (42.0-52.0); Hemoglobin 12.9 g/dL (14.0-18.0); Immature Granulocyte Absolute 0.02 K/mm3 (0.00-0.031); Immature Granulocyte Percent A 0.2 % (0-0.5); Lymphocytes Absolute Auto 1.51 K/mm3 (0.9-3.2); Lymphocytes Percent Auto 17.2 % (18.3-44.2); Mean Corpuscular HGB Conc 29.7 g/dl (32-36); Mean Corpuscular Hemoglobin 28.5 pg (26-34); Mean Platelet Volume 9.3 fl (7.4-10.4); Monocytes Absolute Auto 0.5 K/mm3 (0.1-0.6); Monocytes Percent Auto 5.9 % (2.6-8.5); Neutrophils Absolute Auto 4.7 K/mm3 (1.3-6.7); Neutrophils Percent Auto 53.8 % (45.5-73.1); Platelet Count Result 247 k/mm3 (150-375); Red Blood Count 4.53 M/mm3 (4.6-6.20); Red Cell Distribution Width 14.5 % (11.5-14.5); White Blood Count 8.8 K/mm3 (4.5-10.0)
[2024-06-17] MEDS: PANTOPRAZOLE 40 MG TABLET PO (07:57)
[2024-06-17] MEDS: CHOLECALCIFEROL 1,000 UNITS TABLET 1000 UNITS PO (07:57)
[2024-06-17] MEDS: ATORVASTATIN 40 MG TABLET PO (07:57)
[2024-06-17] MEDS: TICAGRELOR 90 MG TABLET PO ×2 (07:58→20:55)
[2024-06-17] MEDS: carvediloL 6.25 MG TABLET PO ×2 (07:58→20:55)
[2024-06-17] MEDS: ASPIRIN 81 MG ENTERIC TABLET PO (07:58)
--- NOTE | 2024-06-17 08:42 | P.PNIM_ITS ---
Progress Note: A&P Assessment and Plan (1) Non-ST elevation TN (NSTEMI): Code(s): I21.4 - Non-ST elevation (NSTEMI) myocardial infarction Status: Acute Assessment and Plan: Status postsuccessful PCI to distal RCA intot he rPL brach and mid LAD continue aspirin Brilinta beta-kelsey statin now chest pain-free TTE is ordered and pending continue gambling monitor cardiology following (2) Hyperlipidemia associated with type 2 diabetes mellitus: Code(s): E11.69 - Type 2 diabetes mellitus with other specified complication; E78.5 - Hyperlipidemia, unspecified Status: Acute Assessment and Plan: continue statin (3) Hypertension associated with diabetes: Code(s): E11.59 - Type 2 diabetes mellitus with other circulatory complications; I15.2 - Hypertension secondary to endocrine disorders Status: Acute Assessment and Plan: continue Coreg will add LULY-inhibitor depending on the blood pressure (4) Goiter: Code(s): E04.9 - Nontoxic goiter, unspecified Status: Acute Assessment and Plan: large goiter on the CT scan patient states he was diagnosed with goiter in 70s and does not remember what treatment he received. He was hospitalized at that time. TSH ordered (5) Esophagitis: Code(s): K20.90 - Esophagitis, unspecified without bleeding Status: Acute Assessment and Plan: PPI ordered (6) Dysphagia: Code(s): R13.10 - Dysphagia, unspecified Status: Acute Assessment and Plan: dysphagia likely secondary to large goiter. We do not have any intake over a chair. I have recommended patient that he follows up with an ENT as an outpatient. (7) COPD (chronic obstructive pulmonary disease): Code(s): J44.9 - Chronic obstructive pulmonary disease, unspecified Status: Acute Assessment and Plan: not in exacerbation continue bronchodilator Plan dvt proph - Lovenox code status: DNR Subjective Date/time seen: 06/17/24 feels much better and denies any problem. No chest pain shortness a breath nausea vomiting. Tolerating p.o. diet. Afebrile. On nasal cannula. Patient denies fever, chest pain, shortness of breath, cough, nausea vomiting, abdominal pain,, diarrhea, headache or constipation. Patient states that he was diagnosed with goiter in 70s and was hospitalized but does not remember treatment he received. He does complain of intermittent difficulty with swallowing feeds of gets stuck in the throat and takes time to down. But denies any pain no coughing post swallowing. All other systems were reviewed and were negative Review of Systems Review of Systems: All systems reviewed & are unremarkable except as noted in HPI and below ( HPI) Exam Narrative: APPEARANCE: Well appearing, no pain, no distress, well-nourished. HEAD: normocephalic, atraumatic. EYES: PERRLA/EOMI, conjunctivae clear. NOSE: Normal no drainage EARS:TMS clear with good light reflex. THROAT: nontender equator NECK: Supple. No adenopathy, no masses. RESPIRATORY: Clear to auscultation bilaterally, no rales, rhonchi, wheezing. CARDIOVASCULAR: Regular rate and rhythm without murmurs rubs or gallops. ABDOMINAL: Soft, nontender, nondistended, normal bowel sounds MUSCULOSKELETAL: Moves all extremities. Strength/ROM intact, No edema, No calf tenderness. NEURO: Alert. Cranial nerves II through XII intact. no FND, oriented x3 SKIN: Warm, dry. Normal Color Objective Data Vital Signs Vital Signs: Vital Signs - 24 hr 06/16/24 09:00 06/16/24 10:01 06/16/24 12:00 Temperature Pulse Rate 64 70 73 Respiratory Rate 16 12 Blood Pressure 114/59 L 124/69 Pulse Oximetry 97 100 Oxygen Delivery Oxygen Flow Rate Fraction of Inspired Oxygen 06/16/24 12:07 06/16/24 12:22 06/16/24 12:37 Temperature Pulse Rate 66 69 75 Respiratory Rate 16 26 H 24 H Blood Pressure 130/77 134/73 134/73 Pulse Oximetry 81 L 96 97 Oxygen Delivery Oxygen Flow Rate Fraction of Inspired Oxygen 06/16/24 13:05 06/16/24 13:37 06/16/24 14:00 Temperature Pulse Rate 72 70 76 Respiratory Rate 17 Blood Pressure 149/89 H Pulse Oximetry 97 Oxygen Delivery Oxygen Flow Rate Fraction of Inspired Oxygen 06/16/24 14:15 06/16/24 14:34 06/16/24 14:59 Temperature Pulse Rate 71 72 69 Respiratory Rate 16 17 20 Blood Pressure 162/92 H 153/84 H 147/71 H Pulse Oximetry 97 94 94 Oxygen Delivery Oxygen Flow Rate Fraction of Inspired Oxygen 06/16/24 15:22 06/16/24 15:32 06/16/24 16:00 Temperature 36.9 C Pulse Rate 73 61 Respiratory Rate 22 H 18 Blood Pressure 136/67 117/60 Pulse Oximetry 92 93 93 Oxygen Delivery Nasal Cannula Oxygen Flow Rate 2 Fraction of Inspired Oxygen 06/16/24 16:00 06/16/24 16:15 06/16/24 17:00 Temperature Pulse Rate 65 65 69 Respiratory Rate 20 18 Blood Pressure 116/72 149/75 H Pulse Oximetry 95 94 Oxygen Delivery Oxygen Flow Rate Fraction of Inspired Oxygen 06/16/24 17:15 06/16/24 17:56 06/16/24 18:00 Temperature Pulse Rate 70 68 70 Respiratory Rate 16 16 Blood Pressure 152/81 H 152/81 H Pulse Oximetry 95 94 Oxygen Delivery Oxygen Flow Rate Fraction of Inspired Oxygen 06/16/24 19:00 06/16/24 19:06 06/16/24 20:00 Temperature Pulse Rate 72 72 73 Respiratory Rate 22 H 16 19 Blood Pressure 91/36 L 146/79 H Pulse Oximetry 95 96 95 Oxygen Delivery Nasal Cannula Oxygen Flow Rate 2 Fraction of Inspired Oxygen 06/16/24 20:00 06/16/24 20:04 06/16/24 20:26 Temperature 37.1 C Pulse Rate 71 71 74 Respiratory Rate 15 Blood Pressure 139/71 Pulse Oximetry 96 Oxygen Delivery Oxygen Flow Rate Fraction of Inspired Oxygen 06/16/24 20:30 06/16/24 21:00 06/16/24 21:10 Temperature Pulse Rate 74 83 Respiratory Rate 17 19 Blood Pressure 157/82 H 146/69 H Pulse Oximetry 96 85 L 87 L Oxygen Delivery Nasal Cannula Oxygen Flow Rate 3 Fraction of Inspired Oxygen 06/16/24 21:30 06/16/24 21:37 06/16/24 22:00 Temperature Pulse Rate 79 78 70 Respiratory Rate 19 21 H Blood Pressure 133/117 H 129/73 Pulse Oximetry 89 L 92 94 Oxygen Delivery Nasal Cannula Oxygen Flow Rate 2 Fraction of Inspired Oxygen 28 06/16/24 22:00 06/16/24 23:00 06/16/24 23:05 Temperature Pulse Rate 70 52 L 57 L Respiratory Rate 16 14 Blood Pressure 100/56 L Pulse Oximetry 93 91 Oxygen Delivery CPAP Oxygen Flow Rate Fraction of Inspired Oxygen 06/17/24 00:00 06/17/24 00:00 06/17/24 00:00 Temperature 36.8 C Pulse Rate 52 L 62 52 L Respiratory Rate 16 17 Blood Pressure 118/62 Pulse Oximetry 89 L 92 Oxygen Delivery CPAP Oxygen Flow Rate 2 Fraction of Inspired Oxygen 06/17/24 02:00 06/17/24 02:00 06/17/24 04:00 Temperature 36.9 C Pulse Rate 62 51 L 65 Respiratory Rate 17 15 Blood Pressure 118/62 127/71 Pulse Oximetry 92 94 Oxygen Delivery Oxygen Flow Rate Fraction of Inspired Oxygen 06/17/24 04:00 06/17/24 04:00 06/17/24 06:00 Temperature Pulse Rate 65 65 53 L Respiratory Rate 15 Blood Pressure Pulse Oximetry 94 Oxygen Delivery Nasal Cannula Oxygen Flow Rate 3 Fraction of Inspired Oxygen 06/17/24 07:58 06/17/24 08:00 06/17/24 08:00 Temperature 36.3 C L Pulse Rate 58 L 66 66 Respiratory Rate 15 15 Blood Pressure 146/69 H Pulse Oximetry 97 97 Oxygen Delivery Nasal Cannula Oxygen Flow Rate 3 Fraction of Inspired Oxygen 28 06/17/24 08:00 Temperature Pulse Rate 66 Respiratory Rate Blood Pressure Pulse Oximetry Oxygen Delivery Oxygen Flow Rate Fraction of Inspired Oxygen Intake/Output Intake/Output: Intake & Output 06/14/24 06/15/24 06/16/24 06/17/24 23:59 23:59 23:59 23:59 Intake Total 1000 700 Output Total 1200 700 Balance -200 0 Meds/Results Medications: Active Medications Generic Name Dose Route Start Last Admin Trade Name Freq PRN Reason Stop Dose Admin Albuterol 2 puff 06/16/24 13:13 Albuterol Sulfate (*Sp) Aerosol 1 Puff INHALATION Q4H PRN Dyspnea Aspirin 81 mg 06/16/24 09:00 06/17/24 07:58 Aspirin 81 Mg Enteric Tablet PO 81 mg DAILY [facility] Administration Atorvastatin Calcium 40 mg 06/16/24 09:00 06/17/24 07:57 Atorvastatin 40 Mg Tablet PO 40 mg DAILY [facility] Administration Carvedilol 6.25 mg 06/16/24 09:00 06/17/24 07:58 Carvedilol 6.25 Mg Tablet PO 6.25 mg Q12HR [place] Administration Dorzolamide/Timolol 1 drop 06/16/24 21:00 Dorzolamide/Timolol Ophth Pamela 10 Ml Bottle EACH EYE Q12HR [facility] Enoxaparin Sodium 40 mg 06/17/24 09:00 Enoxaparin 40 Mg/0.4 Ml Syringe SUB-Q DAILY [place] Latanoprost 1 drop 06/16/24 18:00 06/16/24 17:57 Latanoprost 0.005% Op Soln 2.5 Ml Btl EACH EYE 1 drop QPM [place] Administration Ondansetron HCl 4 mg 06/16/24 15:04 06/16/24 15:13 Ondansetron Inj 4 Mg/2 Ml Vial IV PUSH 4 mg Q6H PRN Administration Nausea And Vomiting Pantoprazole Sodium 40 mg 06/17/24 09:00 06/17/24 07:57 Pantoprazole 40 Mg Tablet PO 40 mg QAM [place] Administration Fluticasone/Salmeterol 2 puff 06/16/24 20:00 06/16/24 21:33 Fluticasone/Salmeterol 115-21 Mcg Inhaler 1 Puff INHALATION 2 puff Q12HRT [place] Administration Ticagrelor 90 mg 06/16/24 21:00 06/17/24 07:58 Ticagrelor 90 Mg Tablet PO 90 mg Q12HR [place] Administration Umeclidinium Remer 1 puff 06/17/24 08:00 Umeclidinium Remer 62.5 Mcg Ellipta INHALATION DAILYRT [place] Vitamin D 1,000 units 06/17/24 09:00 06/17/24 07:57 Cholecalciferol 1,000 Units Tablet PO 1,000 units DAILY [place] Administration Radiology Results: ITS Impressions Chest/Abdomen/Pelvis CTA 06/16/24 07:00 IMPRESSION: Thyroid goiter Diffuse esophageal wall thickening, possibly due to esophagitis Extensive coronary artery calcification Small pleural effusions, bilateral lower lobe infiltrate/atelectasis Prominent atherosclerosis of the thoracic and abdominal aorta without dissection; 4 cm fusiform infrarenal abdominal aortic aneurysm 1.4 cm right renal cyst Labs Labs: Laboratory Results - last 24 hr 06/16/24 06/16/24 06/16/24 05:32 08:24 11:20 WBC RBC Hgb Hct MCV MCH MCHC RDW Plt Count MPV Immature Gran % (Auto) Neut % (Auto) Lymph % (Auto) [place] % (Auto) Eos % (Auto) Baso % (Auto) Lymph # (Auto) [place] # (Auto) Eos # (Auto) Baso # (Auto) Abs Immat Gran (auto) Absolute Neuts (auto) Absolute Nucleated RBC Nucleated RBC % Activ Coag Time [place] 222 H Hemoglobin A1c 6.2 H Troponin I 4.600 H* D 06/16/24 06/16/24 06/17/24 11:34 12:20 03:45 WBC 8.8 RBC 4.53 L Hgb 12.9 L Hct 43.5 MCV 96.0 MCH 28.5 MCHC 29.7 L RDW 14.5 Plt Count 247 MPV 9.3 Immature Gran % (Auto) 0.2 Neut % (Auto) 53.8 Lymph % (Auto) 17.2 L [place] % (Auto) 5.9 Eos % (Auto) 22.0 H Baso % (Auto) 0.9 Lymph # (Auto) 1.51 [place] # (Auto) 0.5 Eos # (Auto) 1.9 H Baso # (Auto) 0.1 Abs Immat Gran (auto) 0.02 Absolute Neuts (auto) 4.7 Absolute Nucleated RBC 0.000 Nucleated RBC % 0.0 Activ Coag Time [place] 273 H Hemoglobin A1c Troponin I 9.960 H* D Quality VTE Prophylaxis VTE prophylaxis: pharmacologic ordered Hospitalist [facility] Advance Care Plan I have confirmed that the patient's Advanced Care Plan is present, code status is documented, or surrogate decision maker is listed in patient medical record.: Yes Medication Reconciliation I have utilized all available resources to obtain, update and review the patients current medications (includes all prescriptions, OTC, herbals, cannabis, and nutritional supplements).: Yes
[2024-06-17 09:00] LABS: Thyroid Stimulating Hormone Reflex 0.194 uIU/mL (0.465-4.68)
[2024-06-17] MEDS: ENOXAPARIN 40 MG/0.4 ML SYRINGE SUB-Q (09:25)
[2024-06-17] MEDS: UMECLIDINIUM BROMIDE 62.5 MCG ELLIPTA 1 PUFF INHALATION (09:40)
[2024-06-17] MEDS: FLUTICASONE/SALMETEROL 115-21 MCG INHALER 1 PUFF 2 PUFF INHALATION ×2 (09:40→20:38)
[2024-06-17 10:31] LABS: Free T4 Free Thyroxine Reflex 0.98 ng/dL (0.78-2.19)
[2024-06-17 11:30] LABS: Total Triiodothyronine (T3) 1.13 NG/ML (0.97-1.69)
--- NOTE | 2024-06-17 12:00 | PM.PNCARD ---
Progress Note: A&P Assessment and Plan (1) ACS (acute coronary syndrome): Code(s): I24.9 - Acute ischemic heart disease, unspecified Status: Acute Assessment and Plan: Patient has ECGs concerning for inferior posterior insult/injury. Was taken to the lab support technician yesterday for elective coronary angiogram and is now s/ PCI x 2 to the RCA and LAD. Chest pain resolved Tele is stable Continue DAPT with brilinta for 1 year, ASA indefinitely Smoking cessation Aggressive risk factor modification for CAD Echo Can downgrade to med/tele Anticipate discharge tomorrow (2) Hypertension associated with diabetes: Code(s): E11.59 - Type 2 diabetes mellitus with other circulatory complications; I15.2 - Hypertension secondary to endocrine disorders Status: Acute Assessment and Plan: Continue carvedilol, lisinopril/hydrochlorothiazide and adjust and up titrate as need be. (3) Hyperlipidemia associated with type 2 diabetes mellitus: Code(s): E11.69 - Type 2 diabetes mellitus with other specified complication; E78.5 - Hyperlipidemia, unspecified Status: Acute Assessment and Plan: On atorvastatin (4) Former smoker: Code(s): Z87.891 - Personal history of nicotine dependence Status: Acute (5) Peripheral artery disease: Code(s): I73.9 - Peripheral vascular disease, unspecified Status: Acute Assessment and Plan: History of carotid endarterectomy Subjective Date/time seen: 06/17/24 12:00 Interval history: Cardiology follow up for CAD, NSTEMI He is feeling well today and does not have any complaints of chest pain, shortness of breath, palpitations. Does have a cough and reports feeling a sensation of bubbling in his throat when he swallows. Review of Systems Review of Systems: All systems reviewed & are unremarkable except as noted in HPI and below Constitutional: Constitutional: Denies body ache(s) and Reports excessive sweating Eyes: Eyes: Denies blurry vision ENT: Reports Normal hearing present Cardiovascular: Cardiovascular: Reports chest pain and Reports dyspnea Respiratory: Respiratory: Reports dyspnea Gastrointestinal: Gastrointestinal: Denies abdominal pain Genitourinary: Genitourinary: Denies hematuria Musculoskeletal: Musculoskeletal: Denies back pain Integumentary/Breasts: Skin/Breast: Denies erythema Neurologic: Reports Normal hearing present and Denies Abnormal speech present Psychiatric: Psychiatric: Denies anxiety Endocrine: Endocrine: Reports excessive sweating Hematologic/Lymphatic: Hematologic/Lymphatic: Denies easy bleeding Allergic/Immunologic: Allergic/Immunologic: Denies GI upset with certain foods Exam Narrative: Awake alert oriented. No acute distress. Appears stated age Const: General: in distress and uncomfortable HENMT: Ears: TM's normal bilaterally Face/Nose/Sinus: Normal nares present Eyes: General: appearance normal, both eyes and all related structures Sclera: sclerae normal Neck: Neck: supple and no JVD Chest: Other: No reproducible chest wall pain to palpation Resp: Effort & Inspection: normal respiratory effort Auscultation: clear to auscultation bilaterally and diminished lung sounds Cardio: Rate: regular rate Rhythm: regular rhythm Heart sounds: no murmurs GI: Inspection: non-distended Skin: General skin exam: normal color and no rashes or lesions noted Neuro: Cranial nerves: Yes Normal hearing present Speech: normal speech and No Abnormal speech present Sensory Exam: normal sensation Extrem: General: normal to inspection Other: R groin arterial access site free from bleeding, hematoma. Distal pulses intact. Psych: Mental Status: mental status grossly normal Affect: normal affect Objective Data Vital Signs Vital Signs: Vital Signs - 24 hr 06/16/24 12:07 06/16/24 12:22 06/16/24 12:37 Temperature Pulse Rate 66 69 75 Respiratory Rate 16 26 H 24 H Blood Pressure 130/77 134/73 134/73 Pulse Oximetry 81 L 96 97 Oxygen Delivery Oxygen Flow Rate Fraction of Inspired Oxygen 06/16/24 13:05 06/16/24 13:37 06/16/24 14:00 Temperature Pulse Rate 72 70 76 Respiratory Rate 17 Blood Pressure 149/89 H Pulse Oximetry 97 Oxygen Delivery Oxygen Flow Rate Fraction of Inspired Oxygen 06/16/24 14:15 06/16/24 14:34 06/16/24 14:59 Temperature Pulse Rate 71 72 69 Respiratory Rate 16 17 20 Blood Pressure 162/92 H 153/84 H 147/71 H Pulse Oximetry 97 94 94 Oxygen Delivery Oxygen Flow Rate Fraction of Inspired Oxygen 06/16/24 15:22 06/16/24 15:32 06/16/24 16:00 Temperature 36.9 C Pulse Rate 73 61 Respiratory Rate 22 H 18 Blood Pressure 136/67 117/60 Pulse Oximetry 92 93 93 Oxygen Delivery Nasal Cannula Oxygen Flow Rate 2 Fraction of Inspired Oxygen 06/16/24 16:00 06/16/24 16:15 06/16/24 17:00 Temperature Pulse Rate 65 65 69 Respiratory Rate 20 18 Blood Pressure 116/72 149/75 H Pulse Oximetry 95 94 Oxygen Delivery Oxygen Flow Rate Fraction of Inspired Oxygen 06/16/24 17:15 06/16/24 17:56 06/16/24 18:00 Temperature Pulse Rate 70 68 70 Respiratory Rate 16 16 Blood Pressure 152/81 H 152/81 H Pulse Oximetry 95 94 Oxygen Delivery Oxygen Flow Rate Fraction of Inspired Oxygen 06/16/24 19:00 06/16/24 19:06 06/16/24 20:00 Temperature Pulse Rate 72 72 73 Respiratory Rate 22 H 16 19 Blood Pressure 91/36 L 146/79 H Pulse Oximetry 95 96 95 Oxygen Delivery Nasal Cannula Oxygen Flow Rate 2 Fraction of Inspired Oxygen 06/16/24 20:00 06/16/24 20:04 06/16/24 20:26 Temperature 37.1 C Pulse Rate 71 71 74 Respiratory Rate 15 Blood Pressure 139/71 Pulse Oximetry 96 Oxygen Delivery Oxygen Flow Rate Fraction of Inspired Oxygen 06/16/24 20:30 06/16/24 21:00 06/16/24 21:10 Temperature Pulse Rate 74 83 Respiratory Rate 17 19 Blood Pressure 157/82 H 146/69 H Pulse Oximetry 96 85 L 87 L Oxygen Delivery Nasal Cannula Oxygen Flow Rate 3 Fraction of Inspired Oxygen 06/16/24 21:30 06/16/24 21:37 06/16/24 22:00 Temperature Pulse Rate 79 78 70 Respiratory Rate 19 21 H Blood Pressure 133/117 H 129/73 Pulse Oximetry 89 L 92 94 Oxygen Delivery Nasal Cannula Oxygen Flow Rate 2 Fraction of Inspired Oxygen 06/16/24 22:00 06/16/24 23:00 06/16/24 23:05 Temperature Pulse Rate 70 52 L 57 L Respiratory Rate 16 14 Blood Pressure 100/56 L Pulse Oximetry 93 91 Oxygen Delivery CPAP Oxygen Flow Rate Fraction of Inspired Oxygen 06/17/24 00:00 06/17/24 00:00 06/17/24 00:00 Temperature 36.8 C Pulse Rate 52 L 62 52 L Respiratory Rate 16 17 Blood Pressure 118/62 Pulse Oximetry 89 L 92 Oxygen Delivery CPAP Oxygen Flow Rate 2 Fraction of Inspired Oxygen 06/17/24 02:00 06/17/24 02:00 06/17/24 04:00 Temperature 36.9 C Pulse Rate 62 51 L 65 Respiratory Rate 17 15 Blood Pressure 118/62 127/71 Pulse Oximetry 92 94 Oxygen Delivery Oxygen Flow Rate Fraction of Inspired Oxygen 06/17/24 04:00 06/17/24 04:00 06/17/24 06:00 Temperature Pulse Rate 65 65 53 L Respiratory Rate 15 Blood Pressure Pulse Oximetry 94 Oxygen Delivery Nasal Cannula Oxygen Flow Rate 3 Fraction of Inspired Oxygen 06/17/24 07:58 06/17/24 08:00 06/17/24 08:00 Temperature 36.3 C L Pulse Rate 58 L 66 66 Respiratory Rate 15 15 Blood Pressure 146/69 H Pulse Oximetry 97 97 Oxygen Delivery Nasal Cannula Oxygen Flow Rate 3 Fraction of Inspired Oxygen 06/17/24 08:00 06/17/24 08:42 06/17/24 09:44 Temperature Pulse Rate 66 67 64 Respiratory Rate 18 Blood Pressure Pulse Oximetry 94 Oxygen Delivery Nasal Cannula Oxygen Flow Rate 2 Fraction of Inspired Oxygen 06/17/24 09:44 Temperature Pulse Rate 64 Respiratory Rate 18 Blood Pressure Pulse Oximetry Oxygen Delivery Oxygen Flow Rate Fraction of Inspired Oxygen Intake/Output Intake/Output: Intake & Output 06/14/24 06/15/24 06/16/24 06/17/24 23:59 23:59 23:59 23:59 Intake Total 1000 700 Output Total 1200 700 Balance -200 0 Meds/Results Medications: Active Medications Generic Name Dose Route Start Last Admin Trade Name Freq PRN Reason Stop Dose Admin Albuterol 2 puff 06/16/24 13:13 Albuterol Sulfate (*Sp) Aerosol 1 Puff INHALATION Q4H PRN Dyspnea Aspirin 81 mg 06/16/24 09:00 06/17/24 07:58 Aspirin 81 Mg Enteric Tablet PO 81 mg DAILY [facility] Administration Atorvastatin Calcium 40 mg 06/16/24 09:00 06/17/24 07:57 Atorvastatin 40 Mg Tablet PO 40 mg DAILY [facility] Administration Carvedilol 6.25 mg 06/16/24 09:00 06/17/24 07:58 Carvedilol 6.25 Mg Tablet PO 6.25 mg Q12HR [place] Administration Dorzolamide/Timolol 1 drop 06/16/24 21:00 Dorzolamide/Timolol Ophth Pamela 10 Ml Bottle EACH EYE Q12HR [facility] Enoxaparin Sodium 40 mg 06/17/24 09:00 06/17/24 09:25 Enoxaparin 40 Mg/0.4 Ml Syringe SUB-Q 40 mg DAILY [place] Administration Latanoprost 1 drop 06/16/24 18:00 06/16/24 17:57 Latanoprost 0.005% Op Soln 2.5 Ml Btl EACH EYE 1 drop QPM [place] Administration Ondansetron HCl 4 mg 06/16/24 15:04 06/16/24 15:13 Ondansetron Inj 4 Mg/2 Ml Vial IV PUSH 4 mg Q6H PRN Administration Nausea And Vomiting Pantoprazole Sodium 40 mg 06/17/24 09:00 06/17/24 07:57 Pantoprazole 40 Mg Tablet PO 40 mg QAM [place] Administration Fluticasone/Salmeterol 2 puff 06/16/24 20:00 06/17/24 09:40 Fluticasone/Salmeterol 115-21 Mcg Inhaler 1 Puff INHALATION 2 puff Q12HRT [place] Administration Ticagrelor 90 mg 06/16/24 21:00 06/17/24 07:58 Ticagrelor 90 Mg Tablet PO 90 mg Q12HR [facility] Administration Umeclidinium [place] 1 puff 06/17/24 08:00 06/17/24 09:40 Umeclidinium [place] 62.5 Mcg Ellipta INHALATION 1 puff DAILYRT [place] Administration Vitamin D 1,000 units 06/17/24 09:00 06/17/24 07:57 Cholecalciferol 1,000 Units Tablet PO 1,000 units DAILY [place] Administration Radiology Results: ITS Impressions Chest/Abdomen/Pelvis CTA 06/16/24 07:00 IMPRESSION: Thyroid goiter Diffuse esophageal wall thickening, possibly due to esophagitis Extensive coronary artery calcification Small pleural effusions, bilateral lower lobe infiltrate/atelectasis Prominent atherosclerosis of the thoracic and abdominal aorta without dissection; 4 cm fusiform infrarenal abdominal aortic aneurysm 1.4 cm right renal cyst Labs Labs: Laboratory Results - last 24 hr 06/16/24 06/16/24 06/17/24 05:32 12:20 03:42 WBC RBC Hgb Hct MCV MCH MCHC RDW Plt Count MPV Immature Gran % (Auto) Neut % (Auto) Lymph % (Auto) Mclean % (Auto) Eos % (Auto) Baso % (Auto) Lymph # (Auto) [place]clean # (Auto) Eos # (Auto) Baso # (Auto) Abs Immat Gran (auto) Absolute Neuts (auto) Absolute Nucleated RBC Nucleated RBC % Hemoglobin A1c 6.2 H Troponin I 9.960 H* D TSH (Reflex) 0.194 L Free T4 0.98 Total T3 1.13 06/17/24 03:45 WBC 8.8 RBC 4.53 L Hgb 12.9 L Hct 43.5 MCV 96.0 MCH 28.5 MCHC 29.7 L RDW 14.5 Plt Count 247 MPV 9.3 Immature Gran % (Auto) 0.2 Neut % (Auto) 53.8 Lymph % (Auto) 17.2 L Mclean % (Auto) 5.9 Eos % (Auto) 22.0 H Baso % (Auto) 0.9 Lymph # (Auto) 1.51 Mclean # (Auto) 0.5 Eos # (Auto) 1.9 H Baso # (Auto) 0.1 Abs Immat Gran (auto) 0.02 Absolute Neuts (auto) 4.7 Absolute Nucleated RBC 0.000 Nucleated RBC % 0.0 Hemoglobin A1c Troponin I TSH (Reflex) Free T4 Total T3
[2024-06-17] MEDS: LATANOPROST 0.005% OP SOLN 2.5 ML BTL 1 DROP EACH EYE (17:11)
[2024-06-17] MEDS: DORZOLAMIDE/TIMOLOL OPHTH SOL 10 ML BOTTLE 1 DROP EACH EYE (20:55)
[2024-06-18] VITALS (10 sets, daily range): BP systolic 134–180; BP diastolic 38–78; PULSE 48–72; RESP 18–20; TEMP 36.3–36.7; O2SAT 95–98
--- NOTE | 2024-06-18 | ECHO_ITS ---
Patient Info Name: Mc Colon Age: 73 years : 1950 Gender: Male Ht: 72 in Wt: 185 lbs BSA: 2.07 m2 HR: 62 bpm BP: 134 / 68 mmHg Technical Quality: Good Exam Date: 06/18/2024 2:23 PM Exam Location: Echo Lab Exam Room: [facility] Patient Status: Inpatient Admit Date: 06/16/2024 Staff Ordering Physician: Karma Walker Tube Cleaning Operator: Yennifer Juarez RDCS Attending Provider: Thomas Alvarez MD Referring Physician: Denise CAT; Exam Type: CA echo doppler color flow Study Info Complete two-dimensional, color flow and Doppler transthoracic echocardiogram is performed. Summary 1. Technically difficult study with limited views. 2. Left ventricular chamber dimension is normal. 3. Left ventricular systolic function is normal, estimated at 60-65%. 4. There is moderately increased left ventricular wall thickness. 5. The left ventricular diastolic function is grade III diastolic dysfunction. 6. Right ventricular systolic function is normal. 7. There is moderate aortic valve calcification. 8. There is mild aortic valve stenosis. 9. The mitral valve annulus is severely calcified. 10. There is mild mitral valve regurgitation. 11. There is mild tricuspid valve regurgitation. Left Ventricle Left ventricular chamber dimension is normal. Left ventricular systolic function is normal, estimated at 60-65%. There is moderately increased left ventricular wall thickness. The left ventricular diastolic function is grade III diastolic dysfunction. Right Ventricle Right ventricular chamber dimension is normal. Right ventricular systolic function is normal. Left Atria Left atrial chamber dimension is normal. Right Atria Right atrial chamber dimension is normal. Atrial Septum Intact interatrial septum visualized by color flow imaging. Aortic Valve The aortic valve is probable trileaflet. There is mild aortic valve stenosis. There is moderate aortic valve calcification. There is no aortic valve regurgitation. Pulmonic Valve The pulmonic valve is not well visualized. There is trace pulmonic regurgitation. Mitral Valve The mitral valve has thickened leaflets. There is mild mitral valve regurgitation. The mitral valve annulus is severely calcified. Tricuspid Valve There is mild tricuspid valve regurgitation. Pericardium/Pleural There is no pericardial effusion. Inferior Vena Cava Normal inferior vena cava with <50% collapse upon inspiration consistent with elevated right atrial pressure, 15 mmHg. Aorta The aortic root size at the sinus of Valsalva is normal. Left Ventricular Outflow Tract Name Value Normal LVOT 2D LVOT Diameter 1.9 cm LVOT Doppler LVOT Peak Gradient 3 mmHg LVOT Mean Gradient 1 mmHg LVOT VTI 18 cm LVOT VTI/AV VTI Ratio 0.5 LVOT Stroke Volume 50 ml LVOT CO 2.8 l/min LVOT CI 1.4 l/min/m2 Pulmonic Valve Name Value Normal PV Doppler PV Peak Gradient 2 mmHg Mitral Valve Name Value Normal MV Doppler MV Peak Gradient 4 mmHg MV Mean Gradient 1 mmHg MV Decel [place] 536 cm/s2 MV PHT 54 ms MV Area (PHT) 4.1 cm2 4.0-5.0 MV Area (Cont Eq VTI) 1.5 cm2 MV Diastolic Function MV E Peak Velocity 100 cm/s MV A Peak Velocity 53 cm/s MV E/A 1.9 MV Decel Time 186 ms MV Annular TDI MV E/e' (Septal) 13.4 <=8.0 MV E/e' (Lateral) 9.6 <=8.0 MV E/e' (Average) 11.5 Tricuspid Valve Name Value Normal TV Regurgitation Doppler TR Peak Velocity 303 cm/s TR Peak Gradient 37 mmHg Estimated PAP/RSVP RA Pressure 15 mmHg <=5 PA Systolic Pressure 52 mmHg <36 RV Systolic Pressure 52 mmHg <36 Aortic Valve Name Value Normal AV Doppler AV Peak Velocity 164 cm/s AV Peak Gradient 11 mmHg AV Mean Gradient 6 mmHg AV VTI 33 cm AV Area (Cont Eq VTI) 1.5 cm2 >=3.0 AV Area (Cont Eq Daniel) 1.4 cm2 AV Regurgitation 2D LVOT Area 2.8 cm2 Ventricles Name Value Normal LV Dimensions 2D/MM IVS Diastolic Thickness (2D) 0.9 cm 0.6-1.0 LVID Diastole (2D) 5.0 cm 4.2-5.8 LVIW Diastolic Thickness (2D) 0.9 cm 0.6-1.0 LVID Systole (2D) 3.9 cm 2.5-4.0 LVOT Diameter 1.9 cm LV Mass (2D Cubed) 157.16 g 88.00-224.00 LV Mass Index (2D Cubed) 76 g/m2 49-115 Relative Wall Thickness (2D) 0.36 LV Fractional Shortening/Ejection Fraction 2D/MM LV Fractional Shortening (2D) 21 % 25-43 LV EF (2D Teicholz) 43 % 52-72 LV Diastolic Volume (4C MOD) 157 ml LV EF (4C MOD) 66 % LV Diastolic Length (4C) 9.0 cm LV Systolic Length (4C) 7.7 cm LV Stroke Volume (4C MOD) 104 ml Report Signatures
[2024-06-18 05:11] LABS: Hematocrit 44.2 % (42.0-52.0); Hemoglobin 12.9 g/dL (14.0-18.0); Mean Corpuscular HGB Conc 29.2 g/dl (32-36); Mean Corpuscular Hemoglobin 29.3 pg (26-34); Mean Corpuscular Volume 100.5 fl (80-100); Mean Platelet Volume 9.5 fl (7.4-10.4); Platelet Count Result 163 k/mm3 (150-375); Red Cell Distribution Width 14.3 % (11.5-14.5); White Blood Count 7.8 K/mm3 (4.5-10.0)
[2024-06-18] MEDS: PANTOPRAZOLE 40 MG TABLET PO (07:48)
[2024-06-18] MEDS: TICAGRELOR 90 MG TABLET PO (07:48)
[2024-06-18] MEDS: ATORVASTATIN 40 MG TABLET PO (07:49)
[2024-06-18] MEDS: carvediloL 6.25 MG TABLET PO (07:49)
[2024-06-18] MEDS: CHOLECALCIFEROL 1,000 UNITS TABLET 1000 UNITS PO (07:49)
[2024-06-18] MEDS: ASPIRIN 81 MG ENTERIC TABLET PO (07:49)
[2024-06-18] MEDS: ENOXAPARIN 40 MG/0.4 ML SYRINGE SUB-Q (07:51)
[2024-06-18] MEDS: DORZOLAMIDE/TIMOLOL OPHTH SOL 10 ML BOTTLE 1 DROP EACH EYE (07:51)
[2024-06-18 08:37] LABS: Alanine Aminotransferase 18 U/L (6-50); Albumin Level 3.7 g/dL (3.5-5.1); Alkaline Phosphatase 81 U/L (38-126); Anion Gap 5 mmol/L (4-12); Aspartate Amino Transferase 35 U/L (17-59); Bilirubin,Total 0.6 mg/dL (0.2-1.3); Blood Urea Nitrogen 14 mg/dL (9-20); Calcium 8.6 mg/dL (8.4-10.2); Carbon Dioxide 32 mmol/L (22-30); Chloride 101 mmol/L (98-107); Estimated CRCL calculation 82 ml/min; Estimated Glomerular Filt Rate > 60; Glucose 104 mg/dL (65-110); Sodium 138 mmol/L (137-145)
--- NOTE | 2024-06-18 09:03 | P.PNCA_ITS ---
Progress Note: A&P Assessment and Plan (1) ACS (acute coronary syndrome): Code(s): I24.9 - Acute ischemic heart disease, unspecified Status: Acute Assessment and Plan: Patient has ECGs concerning for inferior posterior insult/injury. Was taken to the collaborative physician yesterday for elective coronary angiogram and is now s/ PCI x 2 to the RCA and LAD. * No chest pain * Tele is stable * Continue DAPT with brilinta for 1 year, ASA indefinitely * Smoking cessation * Aggressive risk factor modification for CAD * Echo completed, awaiting results. If unremarkable, he can be discharged * He plans to follow up with beet flumer at the [place]. Will provide contact information for our office as well. Reinforced that he needs follow up within the next two weeks. (2) Hypertension associated with diabetes: Code(s): E11.59 - Type 2 diabetes mellitus with other circulatory complications; I15.2 - Hypertension secondary to endocrine disorders Status: Acute Assessment and Plan: Continue carvedilol, lisinopril/hydrochlorothiazide and adjust and up titrate as need be. (3) Hyperlipidemia associated with type 2 diabetes mellitus: Code(s): E11.69 - Type 2 diabetes mellitus with other specified complication; E78.5 - Hyperlipidemia, unspecified Status: Acute Assessment and Plan: On atorvastatin (4) Former smoker: Code(s): Z87.891 - Personal history of nicotine dependence Status: Acute (5) Peripheral artery disease: Code(s): I73.9 - Peripheral vascular disease, unspecified Status: Acute Assessment and Plan: History of carotid endarterectomy Subjective Date/time seen: 06/18/24 09:03 Interval history: Cardiology follow up for CAD, NSTEMI He is feeling well today and does not have any complaints of chest pain, shortness of breath, palpitations. Does have a cough and reports feeling a sensation of bubbling in his throat when he swallows. 06/18/2024: Continues to feel well. No cardiovascular complaints. Denies chest pain, shortness of breath. Review of Systems Review of Systems: All systems reviewed & are unremarkable except as noted in HPI and below Constitutional: Constitutional: Denies body ache(s) and Reports excessive sweating Eyes: Eyes: Denies blurry vision ENT: Reports Normal hearing present Cardiovascular: Cardiovascular: Reports chest pain and Reports dyspnea Respiratory: Respiratory: Reports dyspnea Gastrointestinal: Gastrointestinal: Denies abdominal pain Genitourinary: Genitourinary: Denies hematuria Musculoskeletal: Musculoskeletal: Denies back pain Integumentary/Breasts: Skin/Breast: Denies erythema Neurologic: Reports Normal hearing present and Denies Abnormal speech present Psychiatric: Psychiatric: Denies anxiety Endocrine: Endocrine: Reports excessive sweating Hematologic/Lymphatic: Hematologic/Lymphatic: Denies easy bleeding Allergic/Immunologic: Allergic/Immunologic: Denies GI upset with certain foods Exam Narrative: Awake alert oriented. No acute distress. Appears stated age Const: General: healthy appearing, comfortable, no acute distress, alert and awake HENMT: Ears: TM's normal bilaterally Face/Nose/Sinus: Normal nares present Eyes: General: appearance normal, both eyes and all related structures Sclera: sclerae normal Neck: Neck: supple and no JVD Chest: Other: No reproducible chest wall pain to palpation Resp: Effort & Inspection: normal respiratory effort Auscultation: clear to auscultation bilaterally and diminished lung sounds Cardio: Rate: regular rate Rhythm: regular rhythm Heart sounds: no murmurs GI: Inspection: non-distended Skin: General skin exam: normal color and no rashes or lesions noted Other: Diaphoretic Neuro: Cranial nerves: Yes Normal hearing present Speech: normal speech and No Abnormal speech present Sensory Exam: normal sensation Extrem: General: normal to inspection Other: R groin arterial access site free from bleeding, hematoma. Distal pulses intact. Psych: Mental Status: mental status grossly normal Affect: normal affect Objective Data Vital Signs Vital Signs: Vital Signs - 24 hr 06/17/24 09:44 06/17/24 09:44 06/17/24 12:00 Temperature 36.9 C Pulse Rate 64 64 60 Respiratory Rate 18 18 18 Blood Pressure 131/47 L Pulse Oximetry 94 94 Oxygen Delivery Nasal Cannula Oxygen Flow Rate 2 Fraction of Inspired Oxygen 28 06/17/24 12:00 06/17/24 12:00 06/17/24 16:00 Temperature Pulse Rate 51 L 54 L Respiratory Rate Blood Pressure Pulse Oximetry 94 Oxygen Delivery Nasal Cannula Oxygen Flow Rate 2 Fraction of Inspired Oxygen 06/17/24 16:00 06/17/24 19:31 06/17/24 20:00 Temperature 36.8 C 36.4 C Pulse Rate 55 L 51 L 51 L Respiratory Rate 16 20 20 Blood Pressure 142/70 H 134/64 Pulse Oximetry 94 97 97 Oxygen Delivery Nasal Cannula Oxygen Flow Rate 2 Fraction of Inspired Oxygen 06/17/24 20:00 06/17/24 20:38 06/17/24 20:55 Temperature Pulse Rate 51 L 59 L Respiratory Rate Blood Pressure Pulse Oximetry 95 Oxygen Delivery Nasal Cannula Oxygen Flow Rate 2 Fraction of Inspired Oxygen 28 06/17/24 23:29 06/17/24 23:33 06/18/24 03:54 Temperature 36.5 C Pulse Rate 65 58 L 48 L Respiratory Rate 19 Blood Pressure 136/77 Pulse Oximetry 97 Oxygen Delivery Oxygen Flow Rate Fraction of Inspired Oxygen 06/18/24 04:00 06/18/24 07:24 06/18/24 07:49 Temperature 36.7 C 36.3 C L Pulse Rate 62 61 64 Respiratory Rate 18 20 Blood Pressure 134/68 140/38 L Pulse Oximetry 97 98 Oxygen Delivery Oxygen Flow Rate Fraction of Inspired Oxygen Intake/Output Intake/Output: Intake & Output 06/15/24 06/16/24 06/17/24 06/18/24 23:59 23:59 23:59 23:59 Intake Total 1000 1680 350 Output Total 1200 1200 600 Balance -200 480 -250 Meds/Results Medications: Active Medications Generic Name Dose Route Start Last Admin Trade Name Freq PRN Reason Stop Dose Admin Albuterol 2 puff 06/16/24 13:13 Albuterol Sulfate (*Sp) Aerosol 1 Puff INHALATION Q4H PRN Dyspnea Aspirin 81 mg 06/16/24 09:00 06/18/24 07:49 Aspirin 81 Mg Enteric Tablet PO 81 mg DAILY [facility] Administration Atorvastatin Calcium 40 mg 06/16/24 09:00 06/18/24 07:49 Atorvastatin 40 Mg Tablet PO 40 mg DAILY [facility] Administration Carvedilol 6.25 mg 06/16/24 09:00 06/18/24 07:49 Carvedilol 6.25 Mg Tablet PO 6.25 mg Q12HR [facility] Administration Dorzolamide/Timolol 1 drop 06/16/24 21:00 06/18/24 07:51 Dorzolamide/Timolol Ophth Pamela 10 Ml Bottle EACH EYE 1 drop Q12HR [facility] Administration Enoxaparin Sodium 40 mg 06/17/24 09:00 06/18/24 07:51 Enoxaparin 40 Mg/0.4 Ml Syringe SUB-Q 40 mg DAILY [facility] Administration Latanoprost 1 drop 06/16/24 18:00 06/17/24 17:11 Latanoprost 0.005% Op Soln 2.5 Ml Btl EACH EYE 1 drop QPM [facility] Administration Ondansetron HCl 4 mg 06/16/24 15:04 06/16/24 15:13 Ondansetron Inj 4 Mg/2 Ml Vial IV PUSH 4 mg Q6H PRN Administration Nausea And Vomiting Pantoprazole Sodium 40 mg 06/17/24 09:00 06/18/24 07:48 Pantoprazole 40 Mg Tablet PO 40 mg QAM [facility] Administration Perflutren Lipid Microsphere 0 ml 06/17/24 13:57 Perflutren Lipid Microspheres 1.5 Ml Vial Diluted To 10 Ml Total Volume IV PUSH 06/20/24 13:57 ONCE PRN adequate visualization Protocol Fluticasone/Salmeterol 2 puff 06/16/24 20:00 06/17/24 20:38 Fluticasone/Salmeterol 115-21 Mcg Inhaler 1 Puff INHALATION 2 puff Q12HRT [facility] Administration Ticagrelor 90 mg 06/16/24 21:00 06/18/24 07:48 Ticagrelor 90 Mg Tablet PO 90 mg Q12HR [facility] Administration Umeclidinium [place] 1 puff 06/17/24 08:00 06/17/24 09:40 Umeclidinium [place] 62.5 Mcg Ellipta INHALATION 1 puff DAILYRT [facility] Administration Vitamin D 1,000 units 06/17/24 09:00 06/18/24 07:49 Cholecalciferol 1,000 Units Tablet PO 1,000 units DAILY [facility] Administration Radiology Results: ITS Impressions Chest/Abdomen/Pelvis CTA 06/16/24 07:00 IMPRESSION: Thyroid goiter Diffuse esophageal wall thickening, possibly due to esophagitis Extensive coronary artery calcification Small pleural effusions, bilateral lower lobe infiltrate/atelectasis Prominent atherosclerosis of the thoracic and abdominal aorta without dissection; 4 cm fusiform infrarenal abdominal aortic aneurysm 1.4 cm right renal cyst Labs Labs: Laboratory Results - last 24 hr 06/17/24 06/18/24 06/18/24 03:42 04:44 07:45 WBC 7.8 RBC 4.40 L Hgb 12.9 L Hct 44.2 MCV 100.5 H MCH 29.3 MCHC 29.2 L RDW 14.3 Plt Count 163 MPV 9.5 Sodium 138 Potassium 4.0 Chloride 101 Carbon Dioxide 32 H Anion Gap 5 BUN 14 Creatinine 0.76 Estim Creat Clear Calc 82 Estimated GFR > 60 Glucose 104 Calcium 8.6 Magnesium 2.0 Total Bilirubin 0.6 AST 35 ALT 18 Alkaline Phosphatase 81 Total Protein 7.0 Albumin 3.7 Free T4 0.98 Total T3 1.13 Quality VTE Prophylaxis VTE prophylaxis: pharmacologic ordered
[2024-06-18] MEDS: UMECLIDINIUM BROMIDE 62.5 MCG ELLIPTA 1 PUFF INHALATION (09:15)
[2024-06-18] MEDS: FLUTICASONE/SALMETEROL 115-21 MCG INHALER 1 PUFF 2 PUFF INHALATION (09:15)
--- NOTE | 2024-06-18 12:47 | PM.IMPN ---
Progress Note: A&P Assessment and Plan (1) Hypertension associated with diabetes: Code(s): E11.59 - Type 2 diabetes mellitus with other circulatory complications; I15.2 - Hypertension secondary to endocrine disorders Status: Acute (2) Non-ST elevation OK (NSTEMI): Code(s): I21.4 - Non-ST elevation (NSTEMI) myocardial infarction Status: Acute (3) ACS (acute coronary syndrome): Code(s): I24.9 - Acute ischemic heart disease, unspecified Status: Acute (4) Peripheral artery disease: Code(s): I73.9 - Peripheral vascular disease, unspecified Status: Acute (5) Hyperlipidemia associated with type 2 diabetes mellitus: Code(s): E11.69 - Type 2 diabetes mellitus with other specified complication; E78.5 - Hyperlipidemia, unspecified Status: Acute (6) Goiter: Code(s): E04.9 - Nontoxic goiter, unspecified Status: Acute (7) Esophagitis: Code(s): K20.90 - Esophagitis, unspecified without bleeding Status: Acute (8) Dysphagia: Code(s): R13.10 - Dysphagia, unspecified Status: Acute (9) Prostate cancer: Code(s): C61 - Malignant neoplasm of prostate Status: Acute (10) COPD (chronic obstructive pulmonary disease): Code(s): J44.9 - Chronic obstructive pulmonary disease, unspecified Status: Acute Plan (1) Non-ST elevation OK (NSTEMI): Code(s): I21.4 - Non-ST elevation (NSTEMI) myocardial infarction Status: Acute Assessment and Plan: Status postsuccessful PCI to distal RCA intot he rPL brach and mid LAD continue aspirin Brilinta beta-kelsey statin now chest pain-free TTE 1. Technically difficult study with limited views. 2. Left ventricular chamber dimension is normal. 3. Left ventricular systolic function is normal, estimated at 60-65%. 4. There is moderately increased left ventricular wall thickness. 5. The left ventricular diastolic function is grade III diastolic dysfunction. 6. Right ventricular systolic function is normal. 7. There is moderate aortic valve calcification. 8. There is mild aortic valve stenosis. 9. The mitral valve annulus is severely calcified. 10. There is mild mitral valve regurgitation. 11. There is mild tricuspid valve regurgitation. 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 p.o. Start losartan 50 mg daily p.o., hydrochlorothiazide 12. 5 mg daily p.o. (4) Goiter: Code(s): E04.9 - Nontoxic goiter, unspecified Status: Acute Assessment and Plan: large goiter on the CT scan patient states he was diagnosed with goiter in 70s and does not remember what treatment he received. He was hospitalized at that time. TSH 0.194, T4 within normal limit Follow-up with PCP (5) Esophagitis: Code(s): K20.90 - Esophagitis, unspecified without bleeding Status: Acute Assessment and Plan: PPI ordered (6) Dysphagia: Code(s): R13.10 - Dysphagia, unspecified Status: Acute Assessment and Plan: dysphagia likely secondary to large goiter. We do not have any intake over a chair. follows up with an ENT as an outpatient. (7) COPD (chronic obstructive pulmonary disease): Code(s): J44.9 - Chronic obstructive pulmonary disease, unspecified Status: Acute Assessment and Plan: not in exacerbation continue bronchodilator Subjective Date/time seen: 06/18/24 12:47 Interval history: I saw exam patient today, patient denies chest pain, shortness breast, abdomen pain, nausea vomiting headache. Patient afebrile, blood pressure is not well controlled Exam Narrative: APPEARANCE: Well appearing, no pain, no distress, well-nourished. HEAD: normocephalic, atraumatic. EYES: PERRLA/EOMI, conjunctivae clear. NOSE: Normal no drainage EARS:TMS clear with good light reflex. THROAT: nontender equator NECK: Supple. No adenopathy, no masses. RESPIRATORY: Clear to auscultation bilaterally, no rales, rhonchi, wheezing. CARDIOVASCULAR: Regular rate and rhythm without murmurs rubs or gallops. ABDOMINAL: Soft, nontender, nondistended, normal bowel sounds MUSCULOSKELETAL: Moves all extremities. Strength/ROM intact, No edema, No calf tenderness. NEURO: Alert. Cranial nerves II through XII intact. no FND, oriented x3 SKIN: Warm, dry. Normal Color Objective Data Vital Signs Vital Signs: Vital Signs - 24 hr 06/17/24 16:00 06/17/24 16:00 06/17/24 19:31 Temperature 98.3 F 97.6 F Pulse Rate 54 L 55 L 51 L Respiratory Rate 16 20 Blood Pressure 142/70 H 134/64 Pulse Oximetry 94 97 Oxygen Delivery Oxygen Flow Rate Fraction of Inspired Oxygen 06/17/24 20:00 06/17/24 20:00 06/17/24 20:38 Temperature Pulse Rate 51 L 51 L Respiratory Rate 20 Blood Pressure Pulse Oximetry 97 95 Oxygen Delivery Nasal Cannula Nasal Cannula Oxygen Flow Rate 2 2 Fraction of Inspired Oxygen 28 06/17/24 20:55 06/17/24 23:29 06/17/24 23:33 Temperature 97.7 F Pulse Rate 59 L 65 58 L Respiratory Rate 19 Blood Pressure 136/77 Pulse Oximetry 97 Oxygen Delivery Oxygen Flow Rate Fraction of Inspired Oxygen 06/18/24 03:54 06/18/24 04:00 06/18/24 07:24 Temperature 98.0 F 97.4 F L Pulse Rate 48 L 62 61 Respiratory Rate 18 20 Blood Pressure 134/68 140/38 L Pulse Oximetry 97 98 Oxygen Delivery Oxygen Flow Rate Fraction of Inspired Oxygen 06/18/24 07:49 06/18/24 09:18 06/18/24 11:50 Temperature 97.6 F Pulse Rate 64 50 L Respiratory Rate 18 Blood Pressure 138/71 Pulse Oximetry 96 97 Oxygen Delivery Nasal Cannula Oxygen Flow Rate 2 Fraction of Inspired Oxygen 28 Intake/Output Intake/Output: Intake & Output 06/15/24 06/16/24 06/17/24 06/18/24 23:59 23:59 23:59 23:59 Intake Total 1000 1680 830 Output Total 1200 1200 600 Balance -200 480 230 Meds/Results Medications: Active Medications Generic Name Dose Route Start Last Admin Trade Name Freq PRN Reason Stop Dose Admin Albuterol 2 puff 06/16/24 13:13 Albuterol Sulfate (*Sp) Aerosol 1 Puff INHALATION Q4H PRN Dyspnea Aspirin 81 mg 06/16/24 09:00 06/18/24 07:49 Aspirin 81 Mg Enteric Tablet PO 81 mg DAILY [place] Administration Atorvastatin Calcium 40 mg 06/16/24 09:00 06/18/24 07:49 Atorvastatin 40 Mg Tablet PO 40 mg DAILY [place] Administration Carvedilol 6.25 mg 06/16/24 09:00 06/18/24 07:49 Carvedilol 6.25 Mg Tablet PO 6.25 mg Q12HR [place] Administration Dorzolamide/Timolol 1 drop 06/16/24 21:00 06/18/24 07:51 Dorzolamide/Timolol Ophth Pamela 10 Ml Bottle EACH EYE 1 drop Q12HR [place] Administration Enoxaparin Sodium 40 mg 06/17/24 09:00 06/18/24 07:51 Enoxaparin 40 Mg/0.4 Ml Syringe SUB-Q 40 mg DAILY [place] Administration Latanoprost 1 drop 06/16/24 18:00 06/17/24 17:11 Latanoprost 0.005% Op Soln 2.5 Ml Btl EACH EYE 1 drop QPM [place] Administration Ondansetron HCl 4 mg 06/16/24 15:04 06/16/24 15:13 Ondansetron Inj 4 Mg/2 Ml Vial IV PUSH 4 mg Q6H PRN Administration Nausea And Vomiting Pantoprazole Sodium 40 mg 06/17/24 09:00 06/18/24 07:48 Pantoprazole 40 Mg Tablet PO 40 mg QAM [place] Administration Perflutren Lipid Microsphere 0 ml 06/17/24 13:57 Perflutren Lipid Microspheres 1.5 Ml Vial Diluted To 10 Ml Total Volume IV PUSH 06/20/24 13:57 ONCE PRN adequate visualization Protocol Fluticasone/Salmeterol 2 puff 06/16/24 20:00 06/18/24 09:15 Fluticasone/Salmeterol 115-21 Mcg Inhaler 1 Puff INHALATION 2 puff Q12HRT [place] Administration Ticagrelor 90 mg 06/16/24 21:00 06/18/24 07:48 Ticagrelor 90 Mg Tablet PO 90 mg Q12HR [place] Administration Umeclidinium Norden 1 puff 06/17/24 08:00 06/18/24 09:15 Umeclidinium Norden 62.5 Mcg Ellipta INHALATION 1 puff DAILYRT [place] Administration Vitamin D 1,000 units 06/17/24 09:00 06/18/24 07:49 Cholecalciferol 1,000 Units Tablet PO 1,000 units DAILY [place] Administration Radiology Results: ITS Impressions Chest/Abdomen/Pelvis CTA 06/16/24 07:00 IMPRESSION: Thyroid goiter Diffuse esophageal wall thickening, possibly due to esophagitis Extensive coronary artery calcification Small pleural effusions, bilateral lower lobe infiltrate/atelectasis Prominent atherosclerosis of the thoracic and abdominal aorta without dissection; 4 cm fusiform infrarenal abdominal aortic aneurysm 1.4 cm right renal cyst Labs Labs: Laboratory Results - last 24 hr 06/18/24 06/18/24 04:44 07:45 WBC 7.8 RBC 4.40 L Hgb 12.9 L Hct 44.2 MCV 100.5 H MCH 29.3 MCHC 29.2 L RDW 14.3 Plt Count 163 MPV 9.5 Sodium 138 Potassium 4.0 Chloride 101 Carbon Dioxide 32 H Anion Gap 5 BUN 14 Creatinine 0.76 Estim Creat Clear Calc 82 Estimated GFR > 60 Glucose 104 Calcium 8.6 Magnesium 2.0 Total Bilirubin 0.6 AST 35 ALT 18 Alkaline Phosphatase 81 Total Protein 7.0 Albumin 3.7
--- NOTE | 2024-06-18 12:52 | P.DS_ITS ---
DS: Admitting Diagnosis Discharge Date 06/18/24 Admitting Diagnosis (1) Hypertension associated with diabetes: Code(s): E11.59 - Type 2 diabetes mellitus with other circulatory complications; I15.2 - Hypertension secondary to endocrine disorders Status: Acute (2) Non-ST elevation AL (NSTEMI): Code(s): I21.4 - Non-ST elevation (NSTEMI) myocardial infarction Status: Acute (3) ACS (acute coronary syndrome): Code(s): I24.9 - Acute ischemic heart disease, unspecified Status: Acute (4) Peripheral artery disease: Code(s): I73.9 - Peripheral vascular disease, unspecified Status: Acute (5) Hyperlipidemia associated with type 2 diabetes mellitus: Code(s): E11.69 - Type 2 diabetes mellitus with other specified complication; E78.5 - Hyperlipidemia, unspecified Status: Acute (6) Goiter: Code(s): E04.9 - Nontoxic goiter, unspecified Status: Acute (7) Esophagitis: Code(s): K20.90 - Esophagitis, unspecified without bleeding Status: Acute (8) Dysphagia: Code(s): R13.10 - Dysphagia, unspecified Status: Acute (9) Prostate cancer: Code(s): C61 - Malignant neoplasm of prostate Status: Acute (10) COPD (chronic obstructive pulmonary disease): Code(s): J44.9 - Chronic obstructive pulmonary disease, unspecified Status: Acute DS: Discharge Diagnosis Discharge Diagnosis (1) Hypertension associated with diabetes: Code(s): E11.59 - Type 2 diabetes mellitus with other circulatory complications; I15.2 - Hypertension secondary to endocrine disorders Status: Acute (2) Non-ST elevation AL (NSTEMI): Code(s): I21.4 - Non-ST elevation (NSTEMI) myocardial infarction Status: Acute (3) ACS (acute coronary syndrome): Code(s): I24.9 - Acute ischemic heart disease, unspecified Status: Acute (4) Peripheral artery disease: Code(s): I73.9 - Peripheral vascular disease, unspecified Status: Acute (5) Hyperlipidemia associated with type 2 diabetes mellitus: Code(s): E11.69 - Type 2 diabetes mellitus with other specified complication; E78.5 - Hyperlipidemia, unspecified Status: Acute (6) Goiter: Code(s): E04.9 - Nontoxic goiter, unspecified Status: Acute (7) Esophagitis: Code(s): K20.90 - Esophagitis, unspecified without bleeding Status: Acute (8) Dysphagia: Code(s): R13.10 - Dysphagia, unspecified Status: Acute (9) Prostate cancer: Code(s): C61 - Malignant neoplasm of prostate Status: Acute (10) COPD (chronic obstructive pulmonary disease): Code(s): J44.9 - Chronic obstructive pulmonary disease, unspecified Status: Acute DS: Summary Hospital Course Hospital Course: Per H&P, 73-year-old male with history of congestive heart failure with no history of coronary disease present in the emergency department for evaluation for intermittent chest pain. Patient reports over the course of the last month he has had 6 episodes of intense chest pain. Patient states this morning at approximately 2 AM he had intense 9/10 chest pain that radiated to his back. Patient states the pain lasted until approximately 5:00 a.m. have when he called EMS. Upon arrival to the scene patient had EKG showing normal sinus rhythm, patient did walk out to the truck coming out to the EMS rig he had some ST changes. EMS was concerned and called a code STEMI. Arrival to the emergency department patient's EKG did not appear to be STEMI and this was discussed with Cardiology-STEMI was canceled.in the ED, his vitals were stable. laboratory workup revealed mild leukocytsois at 10.7, hb 15, chem panel unremarkable. troponin came back elevated at 2.32. with subsequent level at 4 and further at 9.9 CTA chest abdomen and pelvis performed showed thyroid goiter, diffuse eospahgeal wall thicekning, possibly due to eophsagitis, extensive coronary artery calcification, small pleural effusions, bialteral lower lobe infiltrate/atelectasis, prominent atherosclerosis of the thoracic and abdominal aorta without dissection, 4 cm fusiform infrarenal abdomianl aortic aneurysm. 1.4 cm right renal cyst. he was started on heparin gtt, received aspirin. cardiology was consulted. with subsequent level of troponin elevated to 4 and EKG changes and persistent chest pian, patient was taken for cardiac cath urgently. he got successful PCI to distal RCA intot he rPL brach and mid LAD. . he will continue on aspirin 81, brillinta, atorvastatin, bb. TTE is ordered as well. he is admitted to ICU for further treatment. The following med issues have been addressed during hospitalization (1) Non-ST elevation AL (NSTEMI): Code(s): I21.4 - Non-ST elevation (NSTEMI) myocardial infarction Status: Acute Assessment and Plan: Status postsuccessful PCI to distal RCA intot he rPL brach and mid LAD continue aspirin Brilinta beta-kelsey statin now chest pain-free TTE 1. Technically difficult study with limited views. 2. Left ventricular chamber dimension is normal. 3. Left ventricular systolic function is normal, estimated at 60-65%. 4. There is moderately increased left ventricular wall thickness. 5. The left ventricular diastolic function is grade III diastolic dysfunction. 6. Right ventricular systolic function is normal. 7. There is moderate aortic valve calcification. 8. There is mild aortic valve stenosis. 9. The mitral valve annulus is severely calcified. 10. There is mild mitral valve regurgitation. 11. There is mild tricuspid valve regurgitation. continue nurse monitoring Appreciate cardiology consultation (2) Hyperlipidemia associated with type 2 diabetes mellitus: Code(s): E11.69 - Type 2 diabetes mellitus with other specified complication; E78.5 - Hyperlipidemia, unspecified Status: Acute Assessment and Plan: continue statin (3) Hypertension associated with diabetes: Code(s): E11.59 - Type 2 diabetes mellitus with other circulatory complications; I15.2 - Hypertension secondary to endocrine disorders Status: Acute Assessment and Plan: continue Coreg 6.25 mg b.i.d. p.o. Start losartan 50 mg daily p.o., patient is also on Lasix 40 mg daily p.o. will continue home medication (4) Goiter: Code(s): E04.9 - Nontoxic goiter, unspecified Status: Acute Assessment and Plan: large goiter on the CT scan patient states he was diagnosed with goiter in 70s and does not remember what treatment he received. He was hospitalized at that time. TSH 0.194, T4 within normal limit Follow-up with PCP (5) Esophagitis: Code(s): K20.90 - Esophagitis, unspecified without bleeding Status: Acute Assessment and Plan: Continue Protonix 40 mg daily p.o. (6) Dysphagia: Code(s): R13.10 - Dysphagia, unspecified Status: Acute Assessment and Plan: dysphagia likely secondary to large goiter. We do not have any intake over a chair. follows up with an ENT as an outpatient. (7) COPD (chronic obstructive pulmonary disease): Code(s): J44.9 - Chronic obstructive pulmonary disease, unspecified Status: Acute Assessment and Plan: not in exacerbation continue bronchodilator Time Spent with Patient Time attestation: Total time spent providing and/or coordinating discharge services: Exam Narrative: APPEARANCE: Well appearing, no pain, no distress, well-nourished. HEAD: normocephalic, atraumatic. Thyroid enlarged EYES: PERRLA/EOMI, conjunctivae clear. NOSE: Normal no drainage EARS:TMS clear with good light reflex. THROAT: nontender equator NECK: Supple. No adenopathy, no masses. RESPIRATORY: Clear to auscultation bilaterally, no rales, rhonchi, wheezing. CARDIOVASCULAR: Regular rate and rhythm without murmurs rubs or gallops. ABDOMINAL: Soft, nontender, nondistended, normal bowel sounds MUSCULOSKELETAL: Moves all extremities. Strength/ROM intact, No edema, No calf tenderness. NEURO: Alert. Cranial nerves II through XII intact. no FND, oriented x3 SKIN: Warm, dry. Normal Color DS: Data Data Completed and Pending Labs on day of discharge: Labs from last 24 hours 06/18/24 06/18/24 07:45 04:44 WBC 7.8 RBC 4.40 L Hgb 12.9 L Hct 44.2 MCV 100.5 H MCH 29.3 MCHC 29.2 L RDW 14.3 Plt Count 163 MPV 9.5 Sodium 138 Potassium 4.0 Chloride 101 Carbon Dioxide 32 H Anion Gap 5 BUN 14 Creatinine 0.76 Estim Creat Clear Calc 82 Estimated GFR > 60 Glucose 104 Calcium 8.6 Magnesium 2.0 Total Bilirubin 0.6 AST 35 ALT 18 Alkaline Phosphatase 81 Total Protein 7.0 Albumin 3.7 Discharge Plan Discharge Attending physician on discharge: Charli Williamson Consulting providers: Jose Claudio; Carson Harris Discharging Clinician: Charli Williamson Patient Disposition: Home, Self-Care Activity: as tolerated Diet: as tolerated and heart healthy Discharge Instructions: [facility] [address] [place] [id number] DISCHARGE INSTRUCTIONS - POST PCI Activity 1. No driving until 06/20/24. 2. No lifting, pushing or pulling more than 10 pounds for 1 week. 3. No strenuous exercise or activity (including sexual activity) until you are released to do so. 4. May shower but no tub baths or swimming pool for 1 week. Avoid commercial hot tubs. They are too hot. Medications DO NOT STOP YOUR MEDICATIONS ONLY YOUR MACHINIST 2ND SHIFT CAN STOP THE FOLLOWING MEDICATIONS - PLEASE CALL THE OFFICE WITH QUESTIONS. *Aspirin *Ticagrelor (Brilinta) *Atorvastatin *Carvedilol Important Reminders 1. Keep your stent card in your wallet at all times 2. Follow a heart healthy diet paying extra attention to cholesterol and fats. 3. Stay hydrated. 4. If you have chest pain unrelieved by rest or nitroglycerin (if prescribed) call 911 immediately. 5. If you miss one dose of Brilinta (if prescribed) take a tablet at the next time due. If you miss 2 doses take a tablet when you remember and resume at the next time due. *For any other questions please call the office at [phone]. Office hours are 8AM 4:30PM Monday through Monday. Patient Instructions: Antibiotic Form, Atorvastatin (By mouth), Ticagrelor (By mouth), Heart Failure (GEN) Patient Language: Bulgarian Stand Alone Forms: General Discharge Information Follow-up/Referrals: Jarad-Aria,Carisa Begum MD [Primary Care Provider] - (See PCP at scheduled appointment) Carson Harris MD [Physician] - Discharge Medications: New Brilinta 90 mg Tablet 90 mg PO Q12HR 30 Days Qty: 60 11RF carvedilol [Coreg] 6.25 mg Tablet 6.25 mg PO Q12HR Qty: 60 0RF aspirin 81 mg Tablet,Delayed Release (Dr/Ec) 81 mg PO DAILY Qty: 60 0RF atorvastatin 40 mg Tablet 40 mg PO DAILY Qty: 60 0RF losartan 50 mg tablet 50 mg PO DAILY Qty: 30 0RF Continued fluticasone propion-salmeterol [Wixela Inhub] 250-50 mcg/dose blister with device 1 inh INHALATION BID lisinopril-hydrochlorothiazide 20-12.5 mg tablet 1 tablet PO QAM pantoprazole 40 mg tablet,delayed release (DR/EC) 40 mg PO QAM albuterol sulfate 90 mcg/actuation HFA aerosol inhaler 2 puff INHALATION Q4-5H PRN (Reason: Dyspnea) aspirin 81 mg Tablet,Delayed Release (Dr/Ec) 81 mg PO QPM cetirizine 10 mg Capsule 10 mg PO DAILY PRN (Reason: Congestion) docusate sodium [Colace] 100 mg capsule 100 mg PO DAILY Qty: 30 0RF hyoscyamine sulfate 0.125 mg tablet 0.125 mg PO Q6H PRN (Reason: bladder spasms) Qty: 20 2RF cephalexin 500 mg capsule 500 mg PO Q8H Qty: 9 0RF cholecalciferol (vitamin D3) [Vitamin D3] 25 mcg (1,000 unit) tablet 5,000 unit PO DAILY dorzolamide-timolol 22.3-6.8 mg/mL drops 1 drp EACH EYE Q12H Jardiance 10 mg tablet 10 mg PO DAILY latanoprost 0.005 % drops 1 drp EACH EYE QPM Spiriva Respimat 2.5 mcg/actuation mist 2 inh inhalation DAILY rosuvastatin 40 mg tablet 40 mg PO DAILY furosemide 40 mg tablet 40 mg PO DAILY azelastine 137 mcg (0.1 %) spray,non-aerosol 1 spray intranasal Q12H Rx Instructions: administer into each nostril Discontinued carvedilol 12.5 mg tablet 12.5 mg PO BID Date of admission: 06/16/24 07:44 Primary Care Provider: Kristin,Carisa Begum Admitting Provider: Thomas Alvarez Attending physician on admission: Thoams Alvarez Condition: Serious
== END 2024-06-18 17:44 | disposition home or self-care (01) | DRG 322 ==
LOC: ANHED 08:32 → ANHICU 12:22 → ANHIMU 06-17 18:43
PROVIDERS: Internal Medicine; Admitting Provider Internal Medicine; Emergency Provider Emergency Medicine; PCP Family Medicine; Visit Provider Hospitalist
PROC: 4A023N7 Measurement of Cardiac Sampling and Pressure, Left Heart, Percutaneous Approach (ICD-10-PCS; CPT 93452; principal; 2024-06-16 09:40)
PROC: 027135Z Dilation of Coronary Artery, Two Arteries with Two Drug-eluting Intraluminal Devices, Percutaneous Approach (ICD-10-PCS; 2024-06-16 09:40)
PROC: 027135Z Dilation of Coronary Artery, Two Arteries with Two Drug-eluting Intraluminal Devices, Percutaneous Approach (ICD-10-PCS; 2024-06-16 09:40)
PROC: 027135Z Dilation of Coronary Artery, Two Arteries with Two Drug-eluting Intraluminal Devices, Percutaneous Approach (ICD-10-PCS; 2024-06-16 09:40)
DX: I21.4 Non-ST elevation (NSTEMI) myocardial infarction (principal); I25.10 Atherosclerotic heart disease of native coronary artery without angina pectoris; I73.9 Peripheral vascular disease, unspecified; E11.59 Type 2 diabetes mellitus with other circulatory complications; E78.5 Hyperlipidemia, unspecified; J44.9 Chronic obstructive pulmonary disease, unspecified; E04.9 Nontoxic goiter, unspecified; K20.90 Esophagitis, unspecified without bleeding; R13.10 Dysphagia, unspecified; I70.0 Atherosclerosis of aorta; I11.0 Hypertensive heart disease with heart failure; I50.9 Heart failure, unspecified; I71.43 Infrarenal abdominal aortic aneurysm, without rupture; I34.81 Nonrheumatic mitral (valve) annulus calcification; F17.210 Nicotine dependence, cigarettes, uncomplicated; I35.8 Other nonrheumatic aortic valve disorders; I36.8 Other nonrheumatic tricuspid valve disorders; Z66 Do not resuscitate; Z79.84 Long term (current) use of oral hypoglycemic drugs; Z79.899 Other long term (current) drug therapy; Z85.46 Personal history of malignant neoplasm of prostate
CPT/HCPCS: 36415; 71275; 74174; 80053; 80061; 83036; 83735; 84439; 84443; 84480; 84484; 85025; 85027; 85610; 85730; 86850; 86900; 86901; 93005; 93306; 93458; 94640; 96361; 96374; 96375; 96376; 99285; A9270; C1725; C1760; C1769; C1874; C1887; C1894; C9600; G0269; J1644; J1650; J2003; J2250; J2270; J2305; J2405; J3010; J7030; J7040; Q9967

== ENCOUNTER 2024-09-01 12:54 | Inpatient (IN) | payer MEDICARE, OTHER, SELFPAY ==
[2024-09-01] VITALS (13 sets, daily range): BP systolic 108–155; BP diastolic 57–83; PULSE 49–74; RESP 15–20; TEMP 36.3–37; O2SAT 93–98; BMI 27.3
--- NOTE | ~2024-09-01 | CT_ITS ---
EXAMINATION: CTA chest PE protocol DATE: 09/01/2024 16:12 INDICATION: cp, sob, +dimer TECHNIQUE: Computed tomography angiography (CTA) of the chest was performed with 100 mL Omnipaque-350 intravenous contrast timed to evaluate the pulmonary arteries. Coronal maximum intensity projection 3D-reconstructions were created by the technologist. The dose-length product (DLP) was 426.92 mGy-cm. Automated exposure control and iterative reconstruction technique were employed. COMPARISON: X-ray chest, same date; CTPA chest abdomen and pelvis 06/16/2024. FINDINGS: Lung parenchyma and airways: Subsegmental bibasilar consolidation. Lesser areas of centrilobular nodu lar opacities and tree-in-bud opacities in the left lower lobe. Airway debris within lower lobe bronc hi. Pleura: Small bilateral pleural fluid collections. The right pleural collection is hyperdense. Nondep endent pleural fluid versus pleural thickening on the right. Thoracic inlet, axillae and chest wall: Thyroid goiter. Thoracic aorta: No significant dilation. No dissection. Mild atherosclerotic calcification. Mediastinum: Patulous esophagus with mid and lower esophageal wall thickening. Enlarged metastatic ly mph nodes. Heart and pericardium: Mild aortic valve and mitral calcification. Coronary artery calcifications: Mild. Upper abdomen: No significant finding. Bones: No acute osseous finding. Pulmonary arteries: Study quality: Adequate. No pulmonary emboli detected. IMPRESSION: No CT evidence of acute pulmonary embolus. Subsegmental bibasilar consolidation may represent infection/aspiration. Small bilateral pleural effusions. The right pleural fluid is hyperdense and there is anterior right pleural thickening versus loculated fluid. Mediastinal lymphadenopathy. Moderate esophagitis. Reviewed, dictated and finalized at location K. IMPRESSION: No CT evidence of acute pulmonary embolus. Subsegmental bibasilar consolidation may represent infection/aspiration. Small bilateral pleural effusions. The right pleural fluid is hyperdense and th ere is anterior right pleural thickening versus loculated fluid. Mediastinal lymphadenopathy. Moderate esophagitis.
--- NOTE | ~2024-09-01 | XR_ITS ---
EXAMINATION: XR chest 2V Exam Date/Time: 09/01/2024 13:40 CDT HISTORY: chest pain Comparison: None. RESULT: Lines, tubes, and devices: None. Lungs and pleura: No focal consolidation or pneumothorax. Emphysematous change. Mild bilateral costo phrenic angle blunting. Peripheral and basilar reticular opacities with streaky bibasilar scar/atelec tasis. Cardiomediastinal silhouette: Stable. Other: No acute osseous or upper abdominal finding. IMPRESSION: No acute cardiopulmonary process. Chronic interstitial lung disease, overlying emphysematous change. Reviewed, dictated and finalized at location K.
--- NOTE | ~2024-09-01 | XR_ITS ---
MODIFIED ESOPHAGRAM HISTORY: Dysphagia an possible aspiration. TECHNIQUE: Modified barium esophagram was performed on 09/03/2024. I administered fluoroscopy and perfo rmed the exam with speech pathologist. Patient was seated for lateral fluoroscopic imaging for inges tion of thin liquids, pudding, solids and quantified amounts, followed by thin liquids in uncontrolle d amounts. This was recorded on tape. A single fluoroscopic spot image was also recorded. The DAP for this procedure was 1.061 Gycm2. The amount of fluoroscopy time used during this procedure was 1.6 mi nutes. FINDINGS: Oral stage: Adequate function. Pharyngeal stage: Adequate function. Cervical/esophageal stage: Adequate function. IMPRESSION: Patient tolerated regular consistency oral feedings in the upright position. Please marco elate with speech pathologist findings and specific feeding recommendations. Reviewed, dictated and finalized at location A. IMPRESSION: Patient tolerated regular consistency oral feedings in the upright position. Please correlate with speech pathologist findings and specific feedi ng recommendations.
--- NOTE | 2024-09-01 12:55 | ECG_ITS ---
Test Date: 2024-09-01 13:05:21 Measurements Intervals [place] Rate: 56 P: 86 WV: 172 QRS: 48 QRSD: 111 T: -12 QT: 428 QTc: 415 Interpretive Statements SINUS BRADYCARDIA WITH OCCASIONAL SUPRAVENTRICULAR PREMATURE COMPLEXES PROBABLE INFERIOR MYOCARDIAL INFARCTION , OF INDETERMINATE AGE [35 ms Q WAVE IN II/aVF] NONSPECIFIC ST AND T-WAVE ABNORMALITIES ABNORMAL ECG Electronically Signed On 09-01-2024 14:26:13 CDT by Carson Harris M.D.
--- OUTSIDE RECORDS SUMMARY | 2024-09-01 12:56 | XMS_ITS | Encounter Summary ---
Author Name [facility] [place] Address [address] [place] [id number] Care Team Providers Care Key Sander Name Role Phone COLBY HERNANDEZ Primary Care Provider Unavailab le Insurance Providers: All historical and current Section Date Range: From patient's date of to the date document was created. This section includes the names of all active insurance providers for the patient. Insurance Provider Type of Coverage Plan Name Start of Policy Coverage End of Policy Coverage Group Number Member ID Insurance Provider's Telephone Number Policy Mullen's Name Patient's Relationship to Policy Mullen [facility] (WNR) MEDICARE ADVANTAGE [facility] (WNR) Jun 05, 2022 [id number] Robel CARBALLO PATIENT [facility] (WNR) MEDICARE ADVANTAGE [facility] (WNR) Jun 05, 2022 [id number] Robel CARBALLO PATIENT [facility] (WNR) MEDICARE ADVANTAGE [facility] (WNR) Jun 05, 2022 [id number] Robel CARBALLO PATIENT Selected Encounter This section includes the information on record at [place] for the Encounter. Date/Time Encounter Type Encounter Description Reason Provider Source Feb 06, 2024 08:04 AM Outpatient Encounter COMMUNITY CARE CONSULT TONY EPPERSON Encounter Template Text not used by [facility] Plan of Treatment: Future Appointments (+ 6 months) and Future Tests (+/- 45 days) The Plan of Treatment section includes future care activities for the patient [facility] [place] [facility] This section includes future appointments and future orders which are active, pending or scheduled. Future Appointments This section includes appointments that were scheduled to occur 6 months from the date of the Encounter, up to a maximum of 20 appointments. The data comes from all [facility]. Appointment Date/Time Appointment Type Appointme nt Facility Name Feb 07, 2024 10:30 AM AMBULATORY - MEDICINE [facility] Feb 27, 2024 09:30 AM [facility]ORY [facility] Feb 27, 2024 10:30 AM AMBULATORY - NONE [facility] Apr 26, 2024 10:30 AM [facility]ORY [facility] May 07, 2024 10:00 AM [facility]ORY [facility] Jun 21, 2024 10:00 AM [facility]ATORY - [facility] Jul 03, 2024 01:00 PM AMBULATORY - [facility] Jul 23, 2024 10:00 AM [facility]ULATORY - [facility] Aug 05, 2024 10:00 AM [facility] Active, Pending, and Scheduled Orders This section includes a listing of several types of active, pending, and scheduled orders, including clinic medications orders, diagnostic test orders, procedure orders and consult orders; where the start date of the order is 45 days before the date of the Encounter or 45 days after the date of theEncounter. The data comes from all [facility]. Test Date/Time Test Type Test Details Facility Name Feb 07, 2024 12:00 AM Laboratory - Chemi stry Order HGA1C BLOOD [facility] Feb 07, 2024 12:00 AM Laboratory - Chemi stry Order VITAMIN D, 25-HYDROXY GOLD/RED SST SERUM SP [facility] Radiology Reports: +/- 30 days of the encounter Radiology Reports For cases when an order for radiology services may have been completed prior to the date of the Encounter, the report list includes the Radiology Reports that were completed up to 30 days before dateof the Encounter. For cases when an order for radiology services may have been completed after the date of the Encounter, the report list also includes the Radiology Reports that were completed up to30 days after date of the Encounter. The data comes from all [place] treatment facilities. Date/Time Radiology Report Provider Source Jan 12, 2024 10:15 AM CHEST X-RAY, 2 VIE WS: PATRICK CARBALLO [id number] -1950 M Exm Date: JAN 12, 2024@10:15 Req Phys: ADRIANNE ROCHA Pat Loc: [facility] (Req Img Loc: [facility]MAIN RADIOLOGY SUITE Service: Unknown [address] [address] (Case [id number] COMPLETE) CHEST X-RAY, 2 VIEWS (RAD Detailed) CPT:96561 Reason for Study: pleural effusion follow up Clinical History: Report Status: Verified Date Reported: JAN 12, 2024 Date Verified: JAN 12, 2024 Rag Willow Operator E-Sig:/ES/ZAHRA BRAMBILA MD Report: Case #[id number]. Chest examination. COMPARISON: 11/02/2023. Finding: PA and lateral views of the chest examination shows residual left pleural effusion and left lower lobe atelectasis. The right costophrenic angle is obliterated suggestive of chronic pleural thickening or small right pleural effusion. No other evidence of consolidation or mass. No pneumothorax. Impression: Residual left pleural effusion and left lower lobe atelectasis. Suggestive of for right pleural thickening versus small right pleural effusion. No consolidation or mass. Primary Interpreting Staff: ZAHRA BRAMBILA MD, Staff Physician - Radiologist (Rag Willow Operator) /ZAHRA PEGUERO [facility] Jan 12, 2024 10:15 AM CHEST SPECIAL (LTD ECUB): PATRICK CARBALLO [id number] -[id number] M Exm Date: JAN 12, 2024@10:15 Req Phys: ADRIANNE ROCHA Loc: [facility] (Req Img Loc: [facility] RADIOLOGY SUITE Service: Unknown [address] [address] (Case [id number] COMPLETE) CHEST SPECIAL (LTDECUB) (RAD Detailed) CPT:98814 Proc Modifiers : LT LatDec Reason for Study: pleural effusion follow up Clinical History: Report Status: Verified Date Reported: JAN 12, 2024 Date Verified: JAN 12, 2024 Rag Willow Operator E-Sig:/ELKE/ZAHRA BRAMBILA MD Report: Case #[id number]. Left antecubital chest examination. Finding: Left decubitus chest examination shows no evidence of layering of left pleural effusion. Impression: In comparison to previous study findings are compatible with loculated left pleural effusion. Primary Interpreting Staff: ZAHRA BRAMBILA MD, Staff Physician - Radiologist (Rag Willow Operator) /ZAHRA PEGUERO [facility] Jan 12, 2024 10:15 AM CHEST SPECIAL (RTD ECUB): PATRICK CARBALLO [id number] -1950 Exm Date: JAN 12, 2024@10:15 Req Phys: ADRIANNE ROCHA Loc: [facility]OSCOPY (Req Img Loc: -MAIN RADIOLOGY SUITE Service: [address] [address] (Case [id number] COMPLETE) CHEST SPECIAL (RTDECUB) (RAD Detailed) CPT:68938 Proc Modifiers : RT LatDec Reason for Study: pleural effusion follow up Clinical History: Report Status: Verified Date Reported: JAN 12, 2024 Date Verified: JAN 12, 2024 Rag Willow Operator E-Sig:/ELKE/ZAHRA BRAMBILA MD Report: Case #[id number]. Right decubitus chest examination. Finding: Right decubitus chest examination shows no evidence of layering of right pleural fluid collection. Impression: No free right pleural effusion. Primary Interpreting Staff: ZAHRA BRAMBILA MD, Staff Physician - Radiologist (Rag Willow Operator) /ZAHRA PEGUERO [facility] Encounter Notes: All associated encounter notes This section contains the clinical notes associated to the Encounter. Date/Time Encounter Note(s) Provider Source Feb 06, 2024 08:04 AM NONVA NOTE: LOCAL TITLE: COMMUNITY CARE-REQUEST FOR SERVICE NOTE ST STANDARD TITLE: NONVA NOTE DATE OF NOTE: FEB 06, 2024@08:04 ENTRY DATE: FEB 06, 2024@08:04:59 AUTHOR: ZHOU,CONCEPCION M EXP COSIGNER: URGENCY: STATUS: COMPLETED COMMUNITY CARE-REQUEST FOR SERVICE NOTE STL Has ADDENDA Request for Services (RFS) documentation has been sent for scanning to [facility] Consult: COMMUNITY CARE-ST SLEEP STUDY Consult No: [id number] Date sent to scanning: Feb A Request for Service (RFS) form [id number] has been received which includes the following: Care Requested:DME Order ResMed Air Sense 11 auto set with heated humidifier, supplies and [employer] Medium Linda full face mask @ 10-20 cm H20. ICD-10 Dx code: G47.33 Obstructive Sleep Apnea Disorder Date [facility] received request: Feb Date service required: Feb Requesting Community Provider Information: Name of Ordering Provider: [address] [address] P: [phone] F: [phone] /elke/ CONCEPCION EPPERSON REGISTERED NURSE Signed: 02/06/2024 08:18 Receipt Acknowledged By: 02/06/2024 10:09 /elke/ OCLBY HERNANDEZ, MSN, AGNP-C NURSE PRACTITIONER for JEANNIE ZAVALETA 02/06/2024 ADDENDUM STATUS: COMPLETED Request for Services (RFS) DOA Approval/Disapproval Service has been Approved: New in-house [facility] consult/order created. Service will be ordered by the [place] Medical Facility under the [facility] Provider's name. /elke/ CONCEPCION EPPERSON REGISTERED NURSE Signed: 02/06/2024 10:57 CONCEPCION EPPERSON [facility]
--- OUTSIDE RECORDS SUMMARY | 2024-09-01 12:56 | XMS_ITS ---
Author Name [facility] [place] [facility] [place] [facility] [place] Address [address] [place] [address] Care Team Providers Care Registration Coordinator Name Role Phone COLBY HERNANDEZ Primary Care [...] Mullen's Name Patient's Relationship to Policy Mullen [facility] (WNR) MEDICARE ADVANTAGE [facility] (WNR) Jun 05, 2022 [id number] Robel CARBALLO PATIENT [facility] (WNR) MEDICARE ADVANTAGE [facility] (WNR) Jun 05, 2022 [id number] HARIS,Robel AUL PATIENT [facility] (WNR) MEDICARE ADVANTAGE [facility] (WNR) Jun 05, 2022 [id number] Robel CARBALLO PATIENT Selected Encounter This section includes the information on record at CT for the Encounter. 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 This section includes future appointments and future orders which are active, pending or scheduled. Future Appointments This section includes appointments that were scheduled to occur 6 months from the date of the Encounter, up to a maximum of 20 appointments. The data comes from all CT treatment facilities. Appointment Date/Time Appointment Type Appointme nt Facility Name Jul 23, 2024 10:00 AM AMBULATORY - MEDICINE [facility] Aug 05, 2024 10:00 AM AMBULATORY - MEDICINE [facility] Aug 06, 2024 09:00 AM AMBULATORY - REHAB MEDICIN E [facility] Aug 14, 2024 10:00 AM AMBULATORY - MEDICINE [facility] Aug 15, 2024 11:00 AM AMBULATORY - REHAB MEDICIN E [facility] Aug 15, 2024 01:00 PM AMBULATORY - REHAB MEDICIN E [facility] Aug 15, 2024 02:00 PM AMBULATORY - NONE [facility] Aug 20, 2024 01:00 PM AMBULATORY - REHAB MEDICIN E [facility] Aug 20, 2024 02:00 PM AMBULATORY - REHAB MEDICIN E [facility] Aug 22, 2024 01:00 PM AMBULATORY - REHAB MEDICIN E [facility] Aug 22, 2024 02:00 PM AMBULATORY - PSYCHIATRY [facility] Aug 27, 2024 01:00 PM AMBULATORY - REHAB MEDICIN E [facility] Aug 29, 2024 01:00 PM AMBULATORY - REHAB MEDICIN E [facility] Aug 29, 2024 02:00 PM AMBULATORY - NONE [facility] Sep 03, 2024 01:00 PM AMBULATORY - [facility] Sep 03, 2024 02:00 PM AMBULATORY - REHAB MEDICIN E [facility] Sep 05, 2024 01:00 PM AMBULATORY - REHAB MEDICIN E [facility] Sep 05, 2024 02:00 PM AMBULATORY - PS[facility]CHIATRY [facility] Sep 10, 2024 01:00 PM AMBULATORY - REHAB MEDICIN E [facility] Sep 12, 2024 01:00 PM AMBULATORY - REHAB MEDICIN E [facility] Active, Pending, and Scheduled Orders This section includes a listing of several types of active, pending, and scheduled orders, including clinic medications orders, diagnostic test orders, procedure orders and consult orders; where the start date of the order is 45 days before the date of the Encounter or 45 days after the date of theEncounter. The data comes from all CT treatment facilities. Test Date/Time Test Type Test Details Facility Name Aug 14, 2024 12:37 PM Consult Order ENDO THYRO ID DISEASE OUTPATIENT [facility] Cons Inspector [employer] [facility] Lab Results: +/- 30 days of the encounter This section includes the Chemistry and Hematology Lab Results on record with CT for the patient. Radiology Reports and Pathology Reports are provided separately, in subsequent sections. Lab Results This section contains the Chemistry/Hematology Results that were resulted 30 days before or 30 daysafter the date of the Encounter. Date/Time Source Result Type Result - Unit Interpretation Reference Range Comment Aug 01, 2024 09:13 AM [facility] TOTAL T3 (STL-PB) Specimen Type: PLASMA No comment entered. Ordering Provider: MELISSA HERNANDEZ Report Released Date/Time: Jul 30, 2024 01:22 PM Reporting Lab: [facility] [address] [place] [phone] Performing Lab: [facility] [address] [place] [phone] TOTAL T3 (STL-PB) 119.24 ng/dL 58-159 Jul 23, 2024 11:16 AM [facility] MICRAL/CREAT PROFILE (STL) Specimen Type: URINE No comment entered. Ordering Provider: MELISSA HERNANDEZ Report Released Date/Time: Jul 16, 2024 02:46 PM Reporting Lab: [address] [address] Performing Lab: [address] [address] URINE ALBUMIN (PB-STL) 6.3 mg/L uACR (STL) 19 mg/g 0-29 CREATININE URINE/OTHERS 33.7 mg/dL L 63-166 Jul 23, 2024 11:03 AM [facility] ALPHA-1 ANTITRYPSIN (STL-PB) Specimen Type: PLASMA No comment entered. Ordering Provider: BETINA VILLARREAL Report Released Date/Time: Jul 23, 2024 10:40 AM Reporting Lab: [address] [phone] Performing Lab: [address] [address] ALPHA-1 ANTITRYPSIN (STL-PB) 230 mg/dL H 84-200 Jul 23, 2024 11:03 AM [facility] LIPID PANEL (STL) Specimen Type: PLASMA Comment: No hemolysis noted. Ordering Provider: MELISSA HERNANDEZ Report Released Date/Time: Jul 16, 2024 02:46 PM Reporting Lab: [address] [address] Performing Lab: [address] [address] CHOLESTEROL 94 mg/dL 0-200 TRIGLYCERIDE 112 mg/dL 0-150 CALCULATED LDL 40 mg/dL HDL(New) 32 mg/dL L >40 Jul 23, 2024 11:03 AM [facility] COMPREHENSIVE METABOLIC PANEL Specimen Type: PLASMA Comment: No hemolysis noted. Ordering Provider: MELISSA HERNANDEZ Report Released Date/Time: Jul 16, 2024 02:46 PM Reporting Lab: [address] [address] Performing Lab: [facility] [address] [facility] [phone] CREATININE 0.90 mg/dL 0.7-1.3 UREA NITROGEN 16.8 mg/dL 9.0-25.0 GLUCOSE 106 mg/dL H 72-99 SODIUM 143 meq/L 136-145 POTASSIUM 4.1 meq/L 3.5-5 CHLORIDE 102 meq/L 98-107 CARBON DIOXIDE 30 meq/L 22-31 CALCIUM 10.1 mg/dL 8.4-10.4 PROTEIN 8.8 g/dL H 6-8.6 ALBUMIN 4.2 g/dL 3.4-5 TOTAL BILIRUBIN 0.5 mg/dL 0.2-1.2 ALKALINE PHOSPHATASE 109 U/L 40-150 AST/SGOT 19 U/L 5-34 ALT/SGPT 18 U/L 8-40 EGFR (CKD-EPI 2020) 88.5 >60 Jul 23, 2024 11:03 AM [facility] HGA1C Specimen Type: BLOOD No comment entered. Ordering Provider: MELISSA HERNANDEZ Report Released Date/Time: Jul 16, 2024 02:46 PM Reporting Lab: [facility] [address] [place] [phone] Performing Lab: [address] [address] HGA1C 6.2 H 4.0-6.0 Jul 23, 2024 11:03 AM [facility] TSH W/ REFLEX FT4 (STL) Specimen Type: PLASMA No comment entered. Ordering Provider: MELISSA HERNANDEZ Report Released Date/Time: Jul 16, 2024 02:46 PM Reporting Lab: [facility] [address] [place] [phone] Performing Lab: [address] [address] TSH 0.052 u[IU]/mL L 0.47-5 FREE T4(REFLEX) 1.27 ng/mL 0.7-1.48 Jul 23, 2024 11:03 AM [facility] CBC Specimen Type: BLOOD No comment entered. Ordering Provider: MELISSA HERNANDEZ Report Released Date/Time: Jul 16, 2024 02:46 PM Reporting Lab: [facility] [address] [facility] [address] Performing Lab: [facility] [address] [facility] [facility] [facility] [address] WBC 8.4 10*3/uL 3.6-11.2 RBC 5.34 10*6/uL 4.10-5.70 HGB 15.3 g/dL 13.1-16.8 HCT 48.6 H 38.2-48.4 MCV 91.0 fL 80.0-100.0 MCH 28.7 pg 27.0-34.0 MCHC 31.5 g/dL L 33.0-36.0 PLT 326 10*3/uL 150-400 MPV 9.5 fL 7.5-11.2 RDW 13.9 11.8-15.1 NEUTROPHILS 49.5 EOSINOPHILS 29.2 BASOPHILS 1.8 LYMPHOCYTES 8.0 ATYPICAL LYMPHOCYTES 11.5 BASO#-MDIFF 0.15 10*3/uL 0.01-0.20 EO#-MDIFF 2.45 10*3/uL H 0.00-0.60 LYMPH#-MDIFF 1.64 10*3/uL 0.77-4.50 NEUT#-MDIFF 4.16 10*3/uL 2.10-8.00 PAPPENHEIMER BODIES 0 PLT EST-CV DECREASED ADEQUATE NORMRBC Yes Jul 23, 2024 11:03 AM [facility] IMMUNOGLOBULIN E Specimen Type: SERUM Comment: Test Performed by [employer] [facility], [address] [place] [address] Bandar De La Garza M.D., Ph.D., Director of Laboratories , CLIA [id number] Ordering Provider: BETINA VILLARREAL Report Released Date/Time: Jul 23, 2024 10:40 AM Reporting Lab: [facility] [address] [facility] [phone] Performing Lab: [facility] [address] [facility] IMMUNOGLOBULIN E 52 kU/L <=114 Vital Signs: All taken on the encounter date This section contains inpatient and outpatient Vital Signs collected on the date of the Encounter. Date/Time Temperature Pulse Blood Pressure Respiratory Rate SP02 Pain Height Weight Body Mass Index Source Jul 03, 2024 12:59 PM 97.8 76 138/78 18 96 0 197.3 26 [facility] Social History: Smoking Status (Most current) and Tobacco Use (All prior to encounter date) This section includes the most current, and the historical, smoking and tobacco- related health factors from the CT facility where the Encounter took place. Current Smoking Status This section includes the most current smoking, or tobacco-related health factor, from the CT facility where the Encounter took place. Date/Time Current Smoking Status Comment Facil ity Apr 26, 2024 10:[address]-TOBACCO USE FOR FILI CIGARETTES [facility] Tobacco Use History This section includes a history of the smoking, or tobacco-related health factors, that were collected on or before the date of the Encounter. The data comes from the CT facility where the Encounter took place. Date/Time Smoking Status/Tobacco Use Comment F acility Apr 26, 2024 10:30 AM [facility]-TOBACCO USE FOR FILI CIGARETTES [facility] Radiology Reports: +/- 30 days of the [...] the Encounter. The data comes from all CT treatment facilities. Date/Time Radiology Report Provider Source Jul 23, 2024 10:46 AM CHEST X-RAY, 2 VIE WS: PATRICK CARBALLO [id number] -[id number] M Ex Date: JUL 23, 2024@10:46 Req Phys: NIKO VILLARREAL Loc: [facility]-PULMONARY DEMIDENKO (Req'g Img Loc: [facility]-MAIN RADIOLOGY SUITE Service: [facility], [facility] [address] [place] [address] (Case [id number] COMPLETE) CHEST X-RAY, 2 VIEWS (RAD Detailed) CPT:04752 Reason for Study: pleural effusion Clinical History: hx of pleural effusion Report Status: Verified Date Reported: JUL 24, 2024 Date Verified: JUL 24, 2024 Spinner [employer] E-Sig:/ES/HAYDER BOWMAN Report: CHEST X-RAY, 2 VIEWS COMPARISON: 01/12/2024. HISTORY: pleural effusion FINDINGS: Heart size unchanged. Hyperinflation and other chronic findings. There is no consolidating infiltrate, effusion or pneumothorax. Impression: No active lung disease. RR Primary Interpreting Staff: HAYDER BOWMAN Staff Physician (Car) /HAYDER PATEL [facility] Encounter Notes: All associated encounter notes This section contains the clinical notes associated to the Encounter. Date/Time Encounter Note(s) Provider Source Jul 03, 2024 12:59 PM CARDIOLOGY OUTPATI ENT NOTE: LOCAL TITLE: CARDIOLOGY OUTPATIENT FOLLOW UP STL STANDARD TITLE: CARDIOLOGY OUTPATIENT NOTE DATE OF NOTE: JUL 03, 2024@12:59 ENTRY DATE: JUL 03, 2024@12:59:32 AUTHOR: MELVIN ROMERO EXP COSIGNER: URGENCY: STATUS: COMPLETED Cardiology Clinic Note Reason for visit: Follow up for NSTEMI s/p PCI History of present illness: This is 74 year old MALE with CAD s/p NSTEMI (trop 4) and PCI with [place] 3 x 34 mm to mid LAD and orsi[place] 2.5 x 22 mm to distal RCA into the rPL brac, COPD I, HFpEF (EF 60%), carotid stenosis, DM T2, h/o prostate ca, GERD, glaucoma,l Vit D def patient's chart was reviewed. DS: Summary (06/16/2024 to 06/18/2024) Hospital Course: Per H&P, 73-year-old male with history of congestive heart failure with no history of coronary disease present in the emergency department for evaluation for intermittent chest pain. Patient reports over the course of the last month he has had 6 episodes of intense chest pain. Patient states this morning at approximately 2 AM he had intense 9/10 chest pain that radiated to his back. Patient states the pain lasted until approximately 5:00 a.m. have when he called EMS. Upon arrival to the scene patient had EKG showing normal sinus rhythm, patient did walk out to the truck coming out to the EMS rig he had some ST changes. EMS was concerned and called a code STEM!. Arrival to the emergency department patient's EKG did not appear to be STEMI and this was discussed with Cardiology-STEM! was canceled.in the ED, his vitals were stable. laboratory workup revealed mild leukocytsois at 10.7, hb 15, chem panel unremarkable. troponin came back elevated at 2.32. with subsequent level at 4 and further at 9.9 CTA chest abdomen and pelvis performed showed thyroid goiter, diffuse eospahgeal wall thicekning, possibly due to eophsagitis, extensive coronary artery calcification, small pleural effusions, bialteral lower lobe infiltrate/ atelectasis, prominent atherosclerosis of the thoracic and abdominal aorta without dissection, 4 cm fusiform infrarenal abdomianl aortic aneurysm. 1.4 cm right renal cyst. he was started on heparin gtt, received aspirin. cardiology was consulted. with subsequent level of troponin elevated to 4 and EKG changes and persistent chest pian, patient was taken for cardiac cath urgently. he got successful PCI to distal RCA into the rPL brach and mid LAD .. he will continue on aspirin 81, brillinta, atorvastatin, bb. TIE is ordered as well. he is admitted to ICU for further treatment. The following med issues have been addressed during hospitalization (1) Non-ST elevation [place] (NSTEMI): Code(s): 121.4 - Non-ST elevation (NSTEMI) myocardial infarction Status: Acute Assessment and Plan: Status postsuccessful PCI to distal RCA intot he rPL brach and mid LAD continue aspirin Brilinta beta-kelsey statin now chest pain-free TTE 1. Technically difficult study with limited views. 2. Left ventricular chamber dimension is normal. 3. Left ventricular systolic function is normal, estimated at 60-65%. 4. There is moderately increased left ventricular wall thickness. 5. The left ventricular diastolic function is grade Ill diastolic dysfunction. 6. Right ventricular systolic function is normal. 7. There is moderate aortic valve calcification. 8. There is mild aortic valve stenosis. 9. The mitral valve annulus is severely calcified. 10. There is mild mitral valve regurgitation. 11. There is mild tricuspid valve regurgitation. 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 p.o. Start losartan 50 mg daily p.o., patient is also on Lasix 40 mg daily p.o. will continue home medication (4) Goiter: Code(s): E04. 9 - Nontoxic goiter, unspecified Status: Acute Assessment and Plan: large goiter on the CT scan patient states he was diagnosed with goiter in 70s and does not remember what treatment he received. He was hospitalized at that time. TSH 0.194, T4 within normal limit Follow-up with PCP (5) Esophagitis: Code(s): K20.90 - Esophagitis, unspecified without bleeding Status: Acute Assessment and Plan: Continue Protonix 40 mg daily p.o. (6) Dysphagia: Code(s): R13.10 - Dysphagia, unspecified Status: Acute Assessment and Plan: dysphagia likely secondary to large goiter. We do not have any intake over a chair. follows up with an ENT as an outpatient. (7) COPD ( chronic obstructive pulmonary disease): Code(s): J44.9 - Chronic obstructive pulmonary disease, unspecified Status: Acute Assessment and Plan: not in exacerbation continue bronchodilator He had episodes of chest pain/heart burn at night for few weeks prior to his [place] 06/16/2024. Since discharge 06/18/2024, he is doing stable from cardiac standpoint. He continue to have chest pain/heart burn at night, but less severe. He gets SOB after 100 feet with 2 LNC O2. BP 120/60-70s and weight 196 lbs at home. Patient denies exertional chest pain, dyspnea, palpitation. No orthopnea, PND or leg swelling. No syncope, dizziness, claudication. Past Medical History: 1) HTN - Hypertension ([facility] [id number]) 2) GERD - Gastro-Esophageal Reflux Disease ([facility] [id number]) 3) Constipation ([facility] [id number]) 4) Prostate cancer 5) Chronic obstructive lung disease 6) Carotid Artery Stenosis ([facility] [id number]) 7) Glaucoma 8) Prediabetes 9) Vitamin D Deficiency ([facility] [id number]) 10) Exposure to potentially hazardous substance 11) Obstructive Sleep Apnea of Adult ([facility] [id number]) 12) Chronic diastolic heart failure 13) CAD - Coronary Artery Disease ([facility] [id number]) Current Medication: Active Outpatient Medications (including Supplies): Active Outpatient Medications Status 1) ACCU-CHEK GUIDE (GLUCOSE) TEST STRIP USE 1 STRIP FOR BLOOD ACTIVE TEST DIRECTED *DIAGNOSIS, 50 STRIPS PER YEAR Sep 2) ALBUTEROL 90MCG (CFC-F) 200D ORAL INHL INHALE 2 PUFFS BY ACTIVE ORAL INHALATION FOUR TIMES A DAY NEEDED SHAKE WELL. RINSE MOUTHPIECE FREQUENTLY TO PREVENT CLOGGING. Indication: FOR COPD 3) ALCOHOL PREP PAD USE/APPLY PAD TO AFFECTED AREA(S) ONCE A ACTIVE DAY NEEDED Indication: FOR SKIN CLEANSING 4) ASPIRIN 81MG EC TAB TAKE ONE TABLET BY MOUTH ONCE A DAY TAKE ACTIVE WITH FOOD. Indication: FOR CARDIOVASCULAR DISEASE 5) AZELASTINE 137MCG/SPRAY 200D NASAL INHL SPRAY 1 SPRAY IN ACTIVE NOSTRIL(S) TWICE A DAY *PRIME BEFORE USE* Indication: FOR ALLERGIC RHINITIS 6) CARVEDILOL 12.5MG TAB TAKE ONE-HALF TABLET BY MOUTH TWICE A ACTIVE DAY TAKE WITH FOOD. Indication: FOR HIGH BLOOD PRESSURE 7) CHOLECALCIF 50MCG (D3-2,000UNIT) TAB TAKE ONE TABLET BY ACTIVE MOUTH ONCE A DAY Indication: FOR VITAMIN D DEFICIENCY 8) EMPAGLIFLOZIN 25MG TAB TAKE ONE-HALF TABLET BY MOUTH ONCE A ACTIVE DAY Indication: FOR DIABETES 9) FLUTICAS 250/SALMETEROL 50 INHL DISK 60 INHALE 1 INHALATION ACTIVE ORAL INHALATION TWICE A DAY (OPEN DISKUS; CLICK ONLY ONCE; MAY INHALE TWICE TO COMPLETE DOSE; CLOSE WHEN FINISHED) RINSE MOUTH AND SPIT AFTER EACH USE. Indication: FOR COPD 10) FLUTICASONE PROP 50MCG 120D NASAL INHL INSTILL 1 SPRAY IN ACTIVE NOSTRIL(S) EVERY MORNING (MUST BE USED DIRECTED FOR MINIMUM OF 21 DAYS TO PROVIDE ADEQUATE BENEFITS) Indication: FOR RHINITIS 11) FUROSEMIDE 40MG TAB TAKE ONE TABLET BY MOUTH EVERY MORNING ACTIVE Indication: FOR FLUID RETENTION (EDEMA) 12) PANTOPRAZOLE NA 40MG EC TAB TAKE ONE TABLET BY MOUTH EVERY ACTIVE MORNING BEFORE A MEAL TAKE 30 MINUTES BEFORE MEAL(S) Indication: FOR GASTROESOPHAGEAL REFLUX DISEASE 13) ROSUVASTATIN CA 40MG TAB TAKE ONE-HALF TABLET BY MOUTH EVERY ACTIVE EVENING Indication: FOR HIGH CHOLESTEROL 14) TICAGRELOR 90MG TAB TAKE ONE TABLET BY MOUTH TWICE A DAY ACTIVE Indication: FOR CORONARY ARTERY DISEASE 15) TIOTROPIUM 2.5MCG/ACTUAT 60D ORAL INHL INHALE 2 INHALATIONS ACTIVE ORAL INHALATION ONCE A DAY (ADMINISTER AT SAME TIME EACH DAY) Indication: FOR COPD Active Non-VA Medications Status 1) Non-VA ALBUTEROL 90MCG (CFC-F) 200D ORAL INHL 1 PUFF BY ORAL ACTIVE INHALATION FOUR TIMES A DAY NEEDED Indication: FOR COPD 2) Non-VA DOCUSATE NA 100MG CAP 100MG BY MOUTH TWICE A DAY ACTIVE Indication: FOR SOFTENING STOOL 3) Non-VA HYOSCYAMINE SULFATE 0.125MG TAB 0.125MG BY MOUTH ACTIVE Indication: FOR GASTROINTESTINAL DISORDERS 4) Non-VA TIMOLOL MALEATE 0.5% OPH SOLN 1 DROP BOTH EYES TWICE ACTIVE A DAY Indication: FOR ELEVATED INTRAOCULAR PRESSURE losartan 50 mg 19 Total Medications All cardiac medications were reviewed with patient. See any change in Recommendation. Corrected Outpatient Medication List was provided to the patient. Allergy: Patient has answered NKA Family history: No premature coronary disease or sudden Social history: TOBACCO USE - 1 ppd for 60 years, quit 2022 ALCOHOL USE - quit 2019 COCCAINE - No Other receation drugs - No Review of systems: All systems reveiwed are negative except for HPI. Physical Exam: Vital: Temperature: 97.8 F [36.6 C] (07/03/2024 12:59) BP: 138/78 (07/03/2024 12:59) Pulse: 76 (07/03/2024 12:59) Resp: 18 (07/03/2024 12:59) Pain: 0 (07/03/2024 12:59) Height: 73 in [185.4 cm] (05/07/2024 09:52) Weight:197.3 lb [89.49 kg] (07/03/2024 12:59) BMI: 26.1General: Patient is in no acute distress. HEENT: No xanthelasma or oral mucosa cyanosis Neck: supple, no jugular vein distention or thyroid enlargement. Respiratory: Patient breaths comfortable. Lung is clear to auscultation and percussion bilaterally. No crackles and wheezing. Cardiovascular: The point of maximal impact is not displaced. Heart has regular rate and rhythm. normal S1 and S2. No murmurs, rubs or gallops. There are no bruits in carotid arteries, abdominal aorta or femoral arteries bilaterally. Pulses in femoral arteries and pedal arteries are ++ bilaterally. There are no peripheral edema or varicosities. Abdomen: soft, no tenderness or masses. No hepatospleenomegaly. Extremities: No clubbing or cyanosis. Skin: No rash, subcutaneous xanthomas. Neurological/Psychiatric: Alert and orient to time, place and person. Normal affect and mood. Diagnostic data: HGB A1C (last):HGA1C 6.7 H % 09/05/2023 08:05 LDL(DIRECT):____ HDL: 35 mg/dL L (09/05/23 08:05) CHOLESTEROL 162 mg/dL 09/05/2023 08:05 CALCULATED LDL 106 mg/dL 09/05/2023 08:05 Triglycerides:107 mg/dL (09/05/23 08:05) WBC:12.6 10*3/uL H (11/02/23 12:47) RBC:5.06 10*6/uL (11/02/23 12:47) HGB 14.8 g/dL 11/02/2023 12:47 HCT:47.3 % (11/02/23 12:47) PLT 325 10*3/uL 11/02/2023 12:47 Chem 7 GLUCOSE 150 H mg/dL 11/02/2023 12:47 BUN: 10.1 mg/dL (11/02/23 12:47) CREATININE 0.93 mg/dL 11/02/2023 12:47 SODIUM 140 mEq/L 11/02/2023 12:47 POTASSIUM 4.2 mEq/L 11/02/2023 12:47 CHLORIDE 98 mEq/L (11/02/23 12:47) CARBON DIOXIDE 35 H mEq/L 11/02/2023 12:47 Echo 06/2024 at [facility] 1. Technically difficult study with limited views. 2. Left ventricular chamber dimension is normal. 3. Left ventricular systolic function is normal, estimated at 60-65%. 4. There is moderately increased left ventricular wall thickness. 5. The left ventricular diastolic function is grade Ill diastolic dysfunction. 6. Right ventricular systolic function is normal. 7. There is moderate aortic valve calcification. 8. There is mild aortic valve stenosis. 9. The mitral valve annulus is severely calcified. 10. There is mild mitral valve regurgitation. 11. There is mild tricuspid valve regurgitation. 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: Cardiac cath: PFTs 10/13/2023 Post Test Comments: resting hr 106 spo2 86% on 2L conserver pt given 4 puffs alb pt walked 500 ft on CF4L ambulatory hr 99(highest) spo2 80% (lowest) Pre-Bronch Post-Bronch Actual Pred %Pred Actual %Pred %Chng ---- SPIROMETRY ---- FVC (L) 2.26 4.75 47 2.47 51 +9 FEV1 (L) 1.00 3.46 28 1.12 32 +12 FEV1/FVC (%) 44 73 60 46 62 +3 FEF 25% (L/sec) 0.86 7.22 11 1.19 16 +38 FEF 75% (L/sec) 0.19 1.12 16 0.29 26 +55 FEF 25-75% (L/sec) 0.38 2.51 15 0.53 21 +40 FEF Max (L/sec) 2.50 8.52 29 2.61 30 +4 FIVC (L) 2.08 2.28 +9 FIF Max (L/sec) 1.53 2.64 +72 ---- LUNG VOLUMES ---- SVC (L) 2.57 4.75 54 IC (L) 1.55 3.51 44 ERV (L) 0.99 1.24 80 TGV (L) 3.92 4.14 94 RV (Pleth) (L) 2.90 2.72 106 TLC (Pleth) (L) 5.47 7.65 71 RV/TLC (Pleth) (%) 53 37 142 Trapped Gas (L) ---- DIFFUSION ---- DLCOunc (ml/min/mmHg) 14.63 36.37 40 DLCOcor (ml/min/mmHg) 36.37 DL/VA (ml/min/mmHg/L) 3.60 4.76 75 VA (L) 4.06 7.65 53 SPIROMETRY & FLOW-VOLUME CURVE: There is a very severe obstructive abnormality. Following administration of inhaled bronchodilator, there is improvement that does not reach the level of significance per [place] [employer] criteria. The reduction in FVC suggests a restrictive abnormality. LUNG VOLUMES: The reduction in total lung capacity indicates a mild restrictive abnormality. An increased RV/TLC ratio and a reduced maximum voluntary ventilation without concurrent obstruction is consistent with respiratory muscle weakness. The difference in SVC and FVC is consistent with air trapping from obstruction. DLCO: The reduced diffusing capacity indicates a moderate loss of functional alveolar capillary surface. However, the diffusing capacity was not corrected for the patient's hemoglobin level, and anemia may decrease while erythrocytosis may increase the reported value. OXYGENATION: The patient required 2 L of supplemental O2 at rest to keep SpO2 >88%. The patient walked 500 ft in 6 minutes. 6 minute walk distance is decreased. The patient required 4L of supplemental O2 with exercise to keep SpO2 >88%. CONCLUSIONS: There is a combined very severe obstructive and mild restrictive abnormality that did improve significantly after inhaled bronchodilator. There is impairment of diffusing capacity and oxygenation. There are no prior studies available for comparison. Assessment: 1. CAD s/p NSTEMI (trop 4) and PCI with [place] 3 x 34 mm to mid LAD and orsiro [place] 2.5 x 22 mm to distal RCA into the rPL [facility] 06/2024 at [facility] 2. HFpEF (EF 60%), 3. carotid stenosis, 4. Severe COPD 5. DM T2, 6. h/o prostate ca, 7. GERD, Recommendation: 1. He recovers well from recent [place] and PCI. Will continue dual antiplatelet therapy for at least 1 year. 2. Patient is doing stable from cardiac standpoint view. I will continue medical management with current regimen and risk factors modification. 3. Other issues per primary care team. Thank you for allowing me to participate in his care. Please feel free to contact me if you have any questions. RTC: 6 months Total time spent on this encounter is 45 min /day/ MELVIN ROMERO MD,[facility] STAFF FLIPPING MACHINE OPERATOR Signed: 07/03/2024 16:36 MELVIN ROMERO [facility]
--- OUTSIDE RECORDS SUMMARY | 2024-09-01 12:56 | XMS_ITS | Encounter Summary ---
Author Name [facility] Organization [facility] Address [address] [place] [id number] Care Team Providers Care Agricultural Commodities Grader Name Role Phone COLBY HERNANDEZ Primary Care [...] Mullen's Name Patient's Relationship to Policy Mullen [facility] (WNR) MEDICARE ADVANTAGE [facility] (WNR) Jun 05, 2022 [id number] Robel CARBALLO PATIENT [facility] (WNR) MEDICARE ADVANTAGE [facility] (WNR) Jun 05, 2022 [id number] Robel CARBALLO PATIENT [facility] (WNR) MEDICARE ADVANTAGE [facility] (WNR) Jun 05, 2022 [id number] Robel CARBALLO PATIENT Selected Encounter This section includes the information on record at [place] for the Encounter. Date/Time Encounter Type Encounter Description Reason Provider Source Jul 15, 2024 08:21 AM Outpatient Encounter CARDIOLOGY ICD-10-CM I25.10 Athscl heart disease of false pass coronary artery w/o ang pctrs OU,JIAFU IHE Encounter Template Text not used by [place] Assessments - Encounter Diagnoses This section includes the primary and secondary diagnoses documented for the Encounter. Date/Time Primary/Secondary Diagnosis Diagnosis Name Provider Source Jul 21, 2024 05:06 PM PRIMARY Athscl heart disease of false pass coronary artery w/o ang pctMELVIN Schwartz [facility] Plan of Treatment: Future Appointments (+ 6 months) and Future Tests (+/- 45 days) The Plan of Treatment section includes future care activities for the patient from all [place] treatmentfacilities. This section includes future appointments and future orders which are active, pending or scheduled. Future Appointments This section includes appointments that were scheduled to occur 6 months from the date of the Encounter, up to a maximum of 20 appointments. The data comes from all [place] treatment [facility]. Appointment Date/Time Appointment Type Appointme nt Facility Name Jul 23, 2024 10:00 AM AMBULATORY - MEDICINE [facility] Aug 05, 2024 10:00 AM AMBULATORY - MEDICINE [facility] Aug 06, 2024 09:00 AM AMBULATORY - REHAB MEDICIN E [facility] Aug 14, 2024 10:00 AM AMBULATORY - MEDICINE [facility] Aug 15, 2024 11:00 AM AMBULATORY - REHAB MEDICIN E [facility] Aug 15, 2024 01:00 PM AMBULATORY - REHAB MEDICIN E [facility] Aug 15, 2024 02:00 PM AMBULATORY - NONE [facility] Aug 20, 2024 01:00 PM AMBULATORY - REHAB MEDICIN E [facility] Aug 20, 2024 02:00 PM AMBULATORY - REHAB MEDICIN E [facility] Aug 22, 2024 01:00 PM AMBULATORY - REHAB MEDICIN E [facility] Aug 22, 2024 02:00 PM AMBULATORY - PSYCHIATRY [facility] Aug 27, 2024 01:00 PM AMBULATORY - REHAB MEDICIN E [facility] Aug 29, 2024 01:00 PM AMBULATORY - REHAB MEDICIN E [facility] Aug 29, 2024 02:00 PM AMBULATORY - NONE [facility] Sep 03, 2024 01:00 PM AMBULATORY - REHAB MEDICIN E [facility] Sep 03, 2024 02:00 PM AMBULATORY - REHAB MEDICIN E [facility] Sep 05, 2024 01:00 PM AMBULATORY - REHAB MEDICIN E [facility] Sep 05, 2024 02:00 PM AMBULATORY - PSYCHIATRY [facility] Sep 10, 2024 01:00 PM AMBULATORY - REHAB MEDICIN E [facility] Sep 12, 2024 01:00 PM AMBULATORY - REHAB MEDICIN E [facility] Active, Pending, and Scheduled Orders This section includes a listing of several types of active, pending, and scheduled orders, including clinic medications orders, diagnostic test orders, procedure orders and consult orders; where the start date of the order is 45 days before the date of the Encounter or 45 days after the date of theEncounter. The data comes from all [place] treatment facilities. Test Date/Time Test Type Test Details Facility Name Aug 14, 2024 12:37 PM Consult Order ENDO THYRO ID DISEASE OUTPATIENT [facility] Cons Project Management Intern's Choice [facility] Lab Results: +/- 30 days of the encounter This section includes the Chemistry and Hematology Lab Results on record with [place] for the patient. Radiology Reports and Pathology Reports are provided separately, in subsequent sections. Lab Results This section contains the Chemistry/Hematology Results that were resulted 30 days before or 30 daysafter the date of the Encounter. Date/Time Source Result Type Result - Unit Interpretation Reference Range Comment Aug 14, 2024 05:53 PM [facility] RESPIRATORY PCR PANEL Specimen Type: NASOPHARYNX Comment: The PixelSteam RP Panel combines nested multiplex PCR and DNA melting analysis for the simultaneous qualitative detection and identification of multiple respiratory viral and bacterial nucleic acids. A negative result does not preclude infection with the agent(s) tested and should not be used as the sole basis for treatment or other patient management decisions. Detection of organism target(s) does not imply that the corresponding organisms are infectious or are the causative agents for clinical symptoms. Results from this test must be correlated with the clinical history, epidemiological data, and other data available to the clinician evaluating the patient. Masoud TIPTON, ([id number]) Ordering Provider: COLBY HERNANDEZ Report Released Date/Time: Aug 14, 2024 10:22 AM Reporting Lab: [place] [address] [facility] [address] Performing Lab: [address] [address] *Adenovirus (BF) Not Detected Not Detected *Coronavirus HKU1 (BF) Not Detected Not Detected *Coronavirus NL63 (BF) Not Detected Not Detected *Coronavirus 229E (BF) Not Detected Not Detected *Coronavirus OC43 (BF) Not Detected Not Detected *Human Metapneumovirus (BF) Not Detected Not Detected *Human Rhino/Enteroviru s(BF) Not Detected Not Detected *Influenza A (BF) Not Detected Not Detected *Influenza B (BF) Not Detected Not Detected *Parainfluenza Virus 1 (BF) Not Detected Not Detected *Parainfluenza Virus 2 (BF) Not Detected Not Detected *Parainfluenza Virus 3 (BF) Not Detected Not Detected *Parainfluenza Virus 4 (BF) Not Detected Not Detected *Resp Syncytial Virus (BF) Not Detected Not Detected *Bordetella pertussis (BF) Not Detected Not Detected *Chlamydophilia pneumoniae (BF) Not Detected Not Detected *Mycoplasma pneumoniae (BF) Not Detected Not Detected *Bordatella parapertussis (BF) Not Detected Not Detected COVID-19 (BIOFIRE) Not Detected Not Detected Aug 01, 2024 09:13 AM [facility] TOTAL T3 (STL-PB) Specimen Type: PLASMA No comment entered. Ordering Provider: COLBY HERNANDEZ Report Released Date/Time: Jul 30, 2024 01:22 PM Reporting Lab: [address] [address] Performing Lab: [address] [address] TOTAL T3 (STL-PB) 119.24 ng/dL 58-159 Jul 23, 2024 11:16 AM [facility] MICRAL/CREAT PROFILE (STL) Specimen Type: URINE No comment entered. Ordering Provider: COLBY HERNANDEZ Report Released Date/Time: Jul 16, 2024 02:46 PM Reporting Lab: [address] [place] [address] Performing Lab: [address] [address] URINE ALBUMIN (PB-STL) 6.3 mg/L uACR (STL) 19 mg/g 0-29 CREATININE URINE/OTHERS 33.7 mg/dL L 63-166 Jul 23, 2024 11:03 AM [facility] ALPHA-1 ANTITRYPSIN (STL-PB) Specimen Type: PLASMA No comment entered. Ordering Provider: INGRID VILLARREAL Report Released Date/Time: Jul 23, 2024 10:40 AM Reporting Lab: [address] [address] Performing Lab: [address] [address] ALPHA-1 ANTITRYPSIN (L-PB) 230 mg/dL H 84-200 Jul 23, 2024 11:03 AM [facility] LIPID PANEL (L) Specimen Type: PLASMA Comment: No hemolysis noted. Ordering Provider: COLBY HERNANDEZ Report Released Date/Time: Jul 16, 2024 02:46 PM Reporting Lab: [address] [address] Performing Lab: [address] [address] CHOLESTEROL 94 mg/dL 0-200 TRIGLYCERIDE 112 mg/dL 0-150 CALCULATED LDL 40 mg/dL HDL(New) 32 mg/dL L >40 Jul 23, 2024 11:03 AM [facility] COMPREHENSIVE METABOLIC PANEL Specimen Type: PLASMA Comment: No hemolysis noted. Ordering Provider: COLBY HERNANDEZ Report Released Date/Time: Jul 16, 2024 02:46 PM Reporting Lab: [address] [address] Performing Lab: [address] [address] CREATININE 0.90 mg/dL 0.7-1.3 UREA NITROGEN 16.8 [...] 88.5 >60 Jul 23, 2024 11:03 AM [facility] HGA1C Specimen Type: BLOOD No comment entered. Ordering Provider: COLBY HERNANDEZ Report Released Date/Time: Jul 16, 2024 02:46 PM Reporting Lab: [address] [address] Performing Lab: [address] [address] HGA1C 6.2 H 4.0-6.0 Jul 23, 2024 11:03 AM [facility] TSH W/ REFLEX FT4 (STL) Specimen Type: PLASMA No comment entered. Ordering Provider: COLBY HERNANDEZ Report Released Date/Time: Jul 16, 2024 02:46 PM Reporting Lab: [address] [address] Performing Lab: [address] [address] TSH 0.052 u[IU]/mL L 0.47-5 FREE T4(REFLEX) 1.27 ng/mL 0.7-1.48 Jul 23, 2024 11:03 AM [facility] CBC Specimen Type: BLOOD No comment entered. Ordering Provider: COLBY HERNANDEZ Report Released Date/Time: Jul 16, 2024 02:46 PM Reporting Lab: [address] [address] Performing Lab: [address] [address] WBC 8.4 10*3/uL 3.6-11.2 RBC 5.34 10*6/uL [...] NORMRBC Yes Jul 23, 2024 11:03 AM [facility] IMMUNOGLOBULIN E Specimen Type: SERUM Comment: Test Performed by [facility], [facility], [address] [place] [address] Bandar De La Garza M.D., Ph.D., Director of Laboratories , [place] [id number] Ordering Provider: INGRID VILLARREAL Report Released Date/Time: Jul 23, 2024 10:40 AM Reporting Lab: [facility] [address] [facility] [address] Performing Lab: [facility] [address] [place] [address] IMMUNOGLOBULIN E 52 kU/L <=114 Social History: Smoking Status (Most current) and Tobacco Use (All prior to encounter date) This section includes the most current, and the historical, smoking and tobacco- related health factors from the [place] facility where the Encounter took place. Current Smoking Status This section includes the most current smoking, or tobacco-related health factor, from the [place] facility where the Encounter took place. Date/Time Current Smoking Status Comment Mame ity Apr 26, 2024 10:30 AM VA-TOBACCO USE FOR FILI HENLEY [facility] Tobacco Use History This section includes a history of the smoking, or tobacco-related health factors, that were collected on or before the date of the Encounter. The data comes from the [place] facility where the Encounter took place. Date/Time Smoking Status/Tobacco Use Comment F acility Apr 26, 2024 10:30 AM VA-TOBACCO USE FOR FILI [facility] Radiology Reports: +/- 30 days of the [...] the Encounter. The data comes from all [place] treatment facilities. Date/Time Radiology Report Provider Source Jul 23, 2024 10:46 AM CHEST X-RAY, 2 VIE WS: PATRICK CARABLLO [id number] Ex Date: JUL 23, 2024@10:46 Req Phys: NIKO VILLARREAL Loc: [facility] (Req'g Img Loc: [facility]MAIN RADIOLOGY SUITE Service: [address] [address] (Case [id number] COMPLETE) CHEST X-RAY, 2 VIEWS (RAD Detailed) CPT:36025 Reason for Study: pleural effusion Clinical History: hx of pleural effusion Report Status: Verified Date Reported: JUL 24, 2024 Date Verified: JUL 24, 2024 Car E-Sig:/DAY/HAYDER BOWMAN Report: CHEST X-RAY, 2 VIEWS COMPARISON: 01/12/2024. HISTORY: pleural effusion FINDINGS: Heart size unchanged. Hyperinflation and other chronic findings. There is no consolidating infiltrate, effusion or pneumothorax. Impression: No active lung disease. RR Primary Interpreting Staff: HAYDER BOWMAN Staff Physician (Car) /HAYDER PATEL [facility] Encounter Notes: All associated encounter notes This section contains the clinical notes associated to the Encounter. Date/Time Encounter Note(s) Provider Source Jul 15, 2024 08:21 AM CARDIOLOGY NOTE: LOCAL TITLE: CARDIOLOGY CHART REVIEW [facility] STANDARD TITLE: CARDIOLOGY NOTE DATE OF NOTE: JUL 15, 2024@08:21 ENTRY DATE: JUL 15, 2024@08:21:45 AUTHOR: MELVIN ROMERO EXP COSIGNER: URGENCY: STATUS: COMPLETED Received the following message from RADHA FOOTE: MEDICATION RENEW [id number] SUBSTANCE: Who is contacting the [place]? /Patient Requesting renewal of medication: [place] only has enough until this monday . Please advise. called to check on the status of losartan 50 mg daily p.o. It was in the follow up note from Cardiology on 07/03/24. Please follow up with the . Contact via: Phone Please send medication: Mail Disposition: Notification forwarded to provider for review of renewal request. /day/ RADHA FOOTE V15 [facility] District Engineer Signed: 07/15/2024 08:12 He did not tell me about losartan when we reviewed his cardiac meds on last clinic visit 07/03/2024. He has not received losartan for [place] pharmacy based on outpatient pharmacy profile in [facility] and [facility]. Case was discussed with Missy. Please call to clarify how long he has been on losartan and where he got the medication. Please also check to make sure he is not taking midodrine. Diagnosis: CAD Thank you for the opportunity to participate in his care. Please let me know if you have further questions. 12 min is spent on this encounter /jeff ROMERO MD,[facility] STAFF SKILL LABOR Signed: 07/15/2024 08:30 Receipt Acknowledged By: 07/15/2024 11:43 /day/ MISSY CEDEÑO MSN, RN Non-Invasive Cardiology Health Outreach Worker 07/15/2024 09:14 /day/ RADHA FOOTE V15 [facility] District Engineer MELVIN ROMERO [facility]
--- OUTSIDE RECORDS SUMMARY | 2024-09-01 12:56 | XMS_ITS | Continuity of Care Document ---
Author Name [facility] Organization [facility] Care Team Providers Care Roll Icer Name Role Phone [facility] Unavailable Unavailable Problems Combined list of problems from Department of Defense and Veterans Affairs facilities. It does not include entries that were removed or entered in error. Problem Status Onset Date Problem Type Date of Resolution Comments Source CAD - Coronary Artery Disease ([facility] [id number]) Active Condition Jun 27, 2024 Entered By: COLBY HERNANDEZ Comment: NSTEMI, s/p PCI to distal RCA intot he rPL branch and mid LAD. 06/2024 [facility] Carotid Artery Stenosis ([facility] [id number]) Active Condition [facility] Chronic diastolic heart failure Active Condition Jun 27, 2024 Entered By: COLBY HERNANDEZ Comment: Grade III DD noted per TTE at [facility] in 06/2024 [facility] Chronic obstructive lung disease Active Condition [facility] Constipation ([facility] [id number]) Active Condition [facility] Exposure to potentially hazardous substance Active Condition [facility] GERD - Gastro-Esophagea l Reflux Disease ([facility] [id number]) Active Condition [facility] Glaucoma Active Condition [facility] HTN - Hypertension ([facility] [id number]) Active Condition [facility] Obstructive Sleep Apnea of Adult ([facility] [id number]) Active Condition [facility] Prediabetes Active Condition [facility] Prostate cancer Active Condition Jul 29, 2022 Entered By: COLBY HERNANDEZ Comment: s/p prostatectomy 2021 [facility] Vitamin D Deficiency ([facility] [id number]) Active Condition [facility] Diagnosis: ICD-10-CM J44.89 Other specified chronic obstructive pulmonary disease Active Diagnosis [facility] Diagnosis: ICD-10-CM J44.9 Chronic obstructive pulmonary disease, unspecified Active Diagnosis [facility] Diagnosis: ICD-10-CM I25.10 Athscl heart disease of jackson coronary artery w/o ang pctrs Active Diagnosis [facility] Diagnosis: ICD-10-CM I10 Essential (primary) hypertension Active Diagnosis [facility] Diagnosis: ICD-10-CM Z51.81 Encounter for therapeutic drug level monitoring Active Diagnosis [facility] Diagnosis: ICD-10-CM I50.32 Chronic diastolic (congestive) heart failure Active Diagnosis [facility] Diagnosis: ICD-10-CM Z13.5 Encounter for screening for eye and ear disorders Active Diagnosis [facility] Diagnosis: ICD-10-CM I95.0 Idiopathic hypotension Active Diagnosis [facility] Diagnosis: ICD-10-CM Z23 Encounter for immunization Active Diagnosis [facility] Diagnosis: ICD-10-CM J96.11 Chronic respiratory failure with hypoxia Active Diagnosis [facility] Diagnosis: ICD-10-CM R94.6 Abnormal results of thyroid function studies Active Diagnosis [facility] Diagnosis: ICD-10-CM J90 Pleural effusion, not elsewhere classified Active Diagnosis [facility] Diagnosis: ICD-10-CM I65.29 Occlusion and stenosis of unspecified carotid artery Active Diagnosis [facility] Diagnosis: ICD-10-CM R06.02 Shortness of breath Active Diagnosis [facility] Medications Combined list of outpatient medications from Department of Defense and [facility] Affairs facilities.Medications provided include 1) outpatient medications from the last 15 months, and 2) patient-reported medications. Medication Details Route Status Patient Instructions Prescription Expires Prescription Number Last Dispense Date Ordering Provider Order Date Order Qty Source ALBUTEROL SO4 90MCG/ACTUA T (CFC-F) INHL,ORAL,8 .5GM INHALE 2 PUFFS BY ORAL INHALATI ON FOUR TIMES A DAY NEEDED FOR COPD SHAKE WELL. RINSE MOUTHPIE CE FREQUENT LY TO PREVENT CLOGGING . RESPIR ATORY (INHAL ATION) ACTIVE 04/29/2025 [id number] NIKO VILLARREAL 2023 3 [facility] ALBUTEROL SO4 90MCG/ACTUA T (CFC-F) INHL,ORAL,8 .5GM INHALE 1 PUFF BY ORAL INHALATI ON FOUR TIMES A DAY NEEDED RESPIR ATORY (INHAL ATION) ACTIVE COLBY HERNANDEZ 2022 [facility] ASPIRIN 81MG TAB,EC TAKE ONE TABLET BY MOUTH ONCE A DAY TAKE WITH FOOD. ORAL ACTIVE 06/22/2025 [id number] 5 JEANNIE ZAVALETA 2024 120 [facility] AZELASTINE HCL 137MCG/SPRA Y INHL,NASAL, 30ML SPRAY 1 SPRAY IN NOSTRIL( S) TWICE A DAY FOR ALLERGIC RHINITIS *PRIME BEFORE USE* NASAL ACTIVE 01/12/2025 [id number] 5 DANITA ROCHA CAJAL 2023 2 [facility] CARVEDILOL 12.5MG TAB TAKE ONE-HALF TABLET BY MOUTH TWICE A DAY TAKE WITH FOOD. ORAL ACTIVE 06/22/2025 [id number] 5 JEANNIE ZAVALETA 2024 90 [facility] CHOLECALCIF HANY 50MCG (2,000UNIT) TAB TAKE ONE TABLET BY MOUTH ONCE A DAY FOR VITAMIN D DEFICIEN CY ORAL ACTIVE 09/06/2024 [id number] COLBY HERNANDEZ 2023 100 [facility] DOCUSATE NA 100MG CAP TAKE 1 CAPSULE BY MOUTH TWICE A DAY ORAL ACTIVE COLBY HERNANDEZ 2022 [facility] EMPAGLIFLOZ IN 25MG TAB TAKE ONE-HALF TABLET BY MOUTH ONCE A DAY FOR DIABETES ORAL ACTIVE 08/28/2025 [id number] 5 COLBY HERNANDEZ 2024 45 [facility] EMPAGLIFLOZ IN 25MG TAB TAKE ONE-HALF TABLET BY MOUTH ONCE A DAY FOR DIABETES ORAL DISCONT INUED 09/12/2024 [id number] 4 COLBY HERNANDEZ 2023 45 [facility] FLUTICASONE 250MCG/SALM ETEROL 50MCG INHL,ORAL,D ISKUS,60 INHALE 1 INHALATI ON ORAL INHALATI ON TWICE A DAY FOR COPD (OPEN DISKUS; CLICK ONLY ONCE; MAY INHALE TWICE TO COMPLETE DOSE; CLOSE WHEN FINISHED ) RINSE MOUTH AND SPIT AFTER EACH USE. RESPIR ATORY (INHAL ATION) ACTIVE 01/12/2025 [id number] 5 SERENITYDANITA DUTTA KATIEEnrrique CAEVONNEL 2023 3 [facility] FLUTICASONE 250MCG/SALM ETEROL 50MCG INHL,ORAL,D ISKUS,60 INHALE 1 INHALATI ON ORAL INHALATI ON TWICE A DAY (OPEN DISKUS; CLICK ONLY ONCE; MAY INHALE TWICE TO COMPLETE DOSE; CLOSE WHEN FINISHED ) RINSE MOUTH AND SPIT AFTER EACH USE. RESPIR ATORY (INHAL ATION) DISCONT INUED (EDIT) 09/06/2024 [id number] 4 COLBY HERNANDEZ [address] [place] [address] [facility] FLUTICASONE PROPIONATE 50MCG/SPRAY SOLN,NASAL, 16GM INSTILL 1 SPRAY IN NOSTRIL( S) EVERY MORNING (MUST BE USED DIRECTED FOR MINIMUM OF 21 DAYS TO PROVIDE ADEQUATE BENEFITS ) NASAL DISCONT INUED BY BRYAN Duggan 10/11/2024 [id number] NANO KEITH [address] [place] [address] [facility] FUROSEMIDE 40MG TAB TAKE ONE TABLET BY MOUTH EVERY MORNING FOR FLUID RETENTIO N (EDEMA) ORAL ACTIVE 08/28/2025 [id number] 5 COLBY HERNANDEZ [address] [place] [address] [facility] FUROSEMIDE 40MG TAB TAKE ONE TABLET BY MOUTH EVERY MORNING FOR FLUID RETENTIO N (EDEMA) ORAL DISCONT INUED 09/12/2024 [id number] 4 COLBY HERNANDEZ [address] [place] [address] [facility] HYOSCYAMINE SO4 0.125MG TAB TAKE ONE TABLET BY MOUTH ORAL ACTIVE COLBY HERNANDEZ 2022 [facility] LOSARTAN POTASSIUM 100MG TAB TAKE ONE-HALF TABLET BY MOUTH ONCE A DAY ORAL ACTIVE 08/23/2025 [id number] 5 COLBY HERNANDEZ 2024 45 [facility] [place] POTASSIUM 100MG TAB TAKE ONE-HALF TABLET BY MOUTH ONCE A DAY ORAL DISCONT INUED 08/28/2024 [id number] 5 COLBY HERNANDEZ 2024 15 [facility] [place] POTASSIUM 100MG TAB TAKE ONE-HALF TABLET BY MOUTH ONCE A DAY ORAL DISCONT INUED 08/15/2024 [id number] 5 COLBY HERNANDEZ 2024 15 [facility] MIDODRINE HCL 10MG TAB TAKE ONE TABLET BY MOUTH THREE TIMES A DAY FOR LOW BLOOD PRESSURE ORAL DISCONT INUED BY PROVIDE R 10/12/2023 [id number] 4 COLBY HERNANDEZ 2023 90 [facility] PANTOPRAZOL E NA 40MG TAB,EC TAKE ONE TABLET BY MOUTH EVERY MORNING BEFORE A MEAL TAKE 30 MINUTES BEFORE MEAL(S) ORAL ACTIVE 09/12/2024 [id number] 5 COLBY HERNANDEZ 2023 90 [facility] ROSUVASTATI N CA 40MG TAB TAKE ONE-HALF TABLET BY MOUTH EVERY EVENING ORAL ACTIVE 08/28/2025 [id number] 5 COLBY HERNANDEZ 2024 45 [facility] ROSUVASTATI N CA 40MG TAB TAKE ONE-HALF TABLET BY MOUTH EVERY EVENING ORAL DISCONT INUED 09/12/2024 [id number] 4 COLBY HERNANDEZ 2023 45 [facility] TICAGRELOR 90MG TAB TAKE ONE TABLET BY MOUTH TWICE A DAY FOR CORONARY ARTERY DISEASE ORAL ACTIVE 06/23/2025 [id number] 5 JEANNIE ZAVALETA 2024 180 [facility] TIMOLOL MALEATE 0.5% SOLN,OPH INSTILL 1 DROP IN BOTH EYES TWICE A DAY OPHTHA LMIC ACTIVE COLBY HERNANDEZ 2022 [facility] TIOTROPIUM 2.5MCG/ACTU AT INHL,ORAL,6 0D,4GM INHALE 2 INHALATI ONS ORAL INHALATI ON ONCE A DAY FOR COPD (ADMINIS TER AT SAME TIME EACH DAY) RESPIR ATORY (INHAL ATION) ACTIVE 01/12/2025 [id number] 5 DANITA ROCHA 2023 3 [facility] TIOTROPIUM 2.5MCG/ACTU AT INHL,ORAL,6 0D,4GM INHALE 2 INHALATI ONS ORAL INHALATI ON ONCE A DAY (ADMINIS TER AT SAME TIME EACH DAY) RESPIR ATORY (INHAL ATION) DISCONT INUED (EDIT) 09/06/2024 [id number] COLBY HERNANDEZ 2023 1 [facility] Immunizations Combined list of available immunizations from the Department of Defense and Veterans Affairs facilities. 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 Comments Source INFLUENZA, HIGH-DOSE, TRIVALENT, PF 2023 JOAN GOLDEN NE RIGHT DELTO ID [id number] A 135 complet ed [facility] INFLUENZA, UNSPECIFIED FORMULATION 2022 88 complet ed [facility] ZOSTER RECOMBINANT 2022 AURELIANO PEDROZA ANGELA LEFT DELTO ID [id number] 187 complet ed [facility] ZOSTER RECOMBINANT 1 2022 MATTIE VALDES R RIGHT DELTO ID [id number] 187 complet ed [id number] 11/03/23 [facility] COVID-19 (MODERNA), MRNA, LNP-S, BIVALENT BOOSTER, PF, 50 MCG/0.5 ML OR 25MCG/0.25 ML DOSE 1 2022 229 [facility] PNEUMOC[facility] POLYSACCHARID E [id number] 2021 33 complet ed [facility] INFLUENZA, UNSPECIFIED FORMULATION 2021 88 complet [facility] COVID-19 (MODERNA), MRNA, LNP-S, PF, 100 MCG/0.5ML DOSE OR 50 MCG/0.25ML DOSE 3 2020 207 complet ed [facility] COVID-19 (MODERNA), MRNA, LNP-S, PF, 100 MCG/0.5ML DOSE OR 50 MCG/0.25ML DOSE 2 2020 207 complet ed [facility] COVID-19 (MODERNA), MRNA, LNP-S, PF, 100 MCG/0.5ML DOSE OR 50 MCG/0.25ML DOSE 1 2020 207 complet ed [facility] PNEUMOCOCCAL CONJUGATE PCV 13 2018 133 complet ed [facility] Results Combined list of recent chemistry, hematology and other laboratory results from Department of Defense and Veterans Affairs, ranging from 15 months to all on record, depending upon the facility. Order Name Results Value Reference Range Date Interpretation Specimen Comments Source RESPIRAT ORY PCR PANEL ADENOVIRUS DNA [PRESENCE] IN NASOPHARYN X BY MANUEL WITH NON-PROBE DETECTION Not Detected 08/14 Specimen Type: NASOPHARYNX Comment: The FilmArray RP Panel combines nested multiplex PCR and DNA melting analysis for the simultaneou s qualitative detection and identificat ion of multiple respiratory viral and bacterial nucleic acids. A negative result does not preclude infection with the agent(s) tested and should not be used as the sole basis for treatment or other patient management decisions. Detection of organism target(s) does not imply that the correspondi ng organisms are infectious or are the causative agents for clinical symptoms. Results from this test must be correlated with the clinical history, epidemiolog ical data, and other data available to the clinician evaluating the patient. [employer] Diamond, ([phone]) Ordering Provider: GEOFF HERNANDEZ Report Released Date/Time: Aug 14, 2024 10:22 AM Reporting Lab: [facility] [address] [facility] [place] [address] Performing Lab: [facility] [address] [facility] [address] [facility] RESPIRAT ORY PCR PANEL HUMAN CORONAVIRU S HKU1 RNA [PRESENCE] IN NASOPHARYN X BY MANUEL WITH NON-PROBE DETECTION Not Detected 08/14 Specimen Type: NASOPHARYNX Comment: The FilmArray RP Panel combines nested multiplex PCR and DNA melting analysis for the simultaneou s qualitative detection and identificat ion of multiple respiratory viral and bacterial nucleic acids. A negative result does not preclude infection with the agent(s) tested and should not be used as the sole basis for treatment or other patient management decisions. Detection of organism target(s) does not imply that the correspondi ng organisms are infectious or are the causative agents for clinical symptoms. Results from this test must be correlated with the clinical history, epidemiolog ical data, and other data available to the clinician evaluating the patient. [employer] Diamond, ([phone]) Ordering Provider: GEOFF HERNANDEZ Report Released Date/Time: Aug 14, 2024 10:22 AM Reporting Lab: [facility] [address] Performing Lab: [place] [address] [facility] [address] [facility] RESPIRAT ORY PCR PANEL HUMAN CORONAVIRU S NL63 RNA [PRESENCE] IN NASOPHARYN X BY MANUEL WITH NON-PROBE DETECTION Not Detected 08/14 Specimen Type: NASOPHARYNX Comment: The [employer] RP Panel combines nested multiplex PCR and DNA melting analysis for the simultaneou s qualitative detection and identificat ion of multiple respiratory viral and bacterial nucleic acids. A negative result does not preclude infection with the agent(s) tested and should not be used as the sole basis for treatment or other patient management decisions. Detection of organism target(s) does not imply that the correspondi ng organisms are infectious or are the causative agents for clinical symptoms. Results from this test must be correlated with the clinical history, epidemiolog ical data, and other data available to the clinician evaluating the patient. [employer]oreAaliyah Fields, ([phone]) Ordering Provider: GEOFF HERNANDEZ Report Released Date/Time: Aug 14, 2024 10:22 AM Reporting Lab: [facility] [address] Performing Lab: [facility] [address] [facility] RESPIRAT ORY PCR PANEL HUMAN CORONAVIRU S 229E RNA [PRESENCE] IN NASOPHARYN X BY MANUEL WITH NON-PROBE DETECTION Not Detected 08/14 Specimen Type: NASOPHARYNX Comment: The FilmArray RP Panel combines nested multiplex PCR and DNA melting analysis for the simultaneou s qualitative detection and identificat ion of multiple respiratory viral and bacterial nucleic acids. A negative result does not preclude infection with the agent(s) tested and should not be used as the sole basis for treatment or other patient management decisions. Detection of organism target(s) does not imply that the correspondi ng organisms are infectious or are the causative agents for clinical symptoms. Results from this test must be correlated with the clinical history, epidemiolog ical data, and other data available to the clinician evaluating the patient. [employer], ([phone]) Ordering Provider: GEOFF HERNANDEZ Report Released Date/Time: Aug 14, 2024 10:22 AM Reporting Lab: [facility] [address] [place] [address] Performing Lab: [facility] [address] [facility] RESPIRAT ORY PCR PANEL HUMAN CORONAVIRU S OC43 RNA [PRESENCE] IN NASOPHARYN X BY MANUEL WITH NON-PROBE DETECTION Not Detected 08/14 Specimen Type: NASOPHARYNX Comment: The FilmArray RP Panel combines nested multiplex PCR and DNA melting analysis for the simultaneou s qualitative detection and identificat ion of multiple respiratory viral and bacterial nucleic acids. A negative result does not preclude infection with the agent(s) tested and should not be used as the sole basis for treatment or other patient management decisions. Detection of organism target(s) does not imply that the correspondi ng organisms are infectious or are the causative agents for clinical symptoms. Results from this test must be correlated with the clinical history, epidemiolog ical data, and other data available to the clinician evaluating the patient. [employer] Diamond, ([phone]) Ordering Provider: GEOFF HERNANDEZ Report Released Date/Time: Aug 14, 2024 10:22 AM Reporting Lab: [facility] [address] [facility] [address] Performing Lab: [facility] [address] [facility] RESPIRAT ORY PCR PANEL HUMAN METAPNEUMO VIRUS RNA [PRESENCE] IN NASOPHARYN X BY MANUEL WITH NON-PROBE DETECTION Not Detected 08/14 Specimen Type: NASOPHARYNX Comment: The FilmArray RP Panel combines nested multiplex PCR and DNA melting analysis for the simultaneou s qualitative detection and identificat ion of multiple respiratory viral and bacterial nucleic acids. A negative result does not preclude infection with the agent(s) tested and should not be used as the sole basis for treatment or other patient management decisions. Detection of organism target(s) does not imply that the correspondi ng organisms are infectious or are the causative agents for clinical symptoms. Results from this test must be correlated with the clinical history, epidemiolog ical data, and other data available to the clinician evaluating the patient. [employer] HILL, ([phone]) Ordering Provider: GEOFF HERNANDEZ Report Released Date/Time: Aug 14, 2024 10:22 AM Reporting Lab: [address] [address] Performing Lab: [address] [id number] [place] [address] [facility] RESPIRAT ORY PCR PANEL RHINOVIRUS +ENTEROVIR US RNA [PRESENCE] IN NASOPHARYN X BY MANUEL WITH NON-PROBE DETECTION Not Detected 08/14 Specimen Type: NASOPHARYNX Comment: The FilmArray RP Panel combines nested multiplex PCR and DNA melting analysis for the simultaneou s qualitative detection and identificat ion of multiple respiratory viral and bacterial nucleic acids. A negative result does not preclude infection with the agent(s) tested and should not be used as the sole basis for treatment or other patient management decisions. Detection of organism target(s) does not imply that the correspondi ng organisms are infectious or are the causative agents for clinical symptoms. Results from this test must be correlated with the clinical history, epidemiolog ical data, and other data available to the clinician evaluating the patient. [employer]om[employer]Mas[employer] HILL ([phone]) Ordering Provider: GEOFF HERNANDEZ Report Released Date/Time: Aug 14, 2024 10:22 AM Reporting Lab: [address] [address] Performing Lab: [address] [address] [facility] RESPIRAT ORY PCR PANEL INFLUENZA VIRUS A RNA [PRESENCE] IN NASOPHARYN X BY MANUEL WITH NON-PROBE DETECTION Not Detected 08/14 Specimen Type: NASOPHARYNX Comment: The FilmArray RP Panel combines nested multiplex PCR and DNA melting analysis for the simultaneou s qualitative detection and identificat ion of multiple respiratory viral and bacterial nucleic acids. A negative result does not preclude infection with the agent(s) tested and should not be used as the sole basis for treatment or other patient management decisions. Detection of organism target(s) does not imply that the correspondi ng organisms are infectious or are the causative agents for clinical symptoms. Results from this test must be correlated with the clinical history, epidemiolog ical data, and other data available to the clinician evaluating the patient. testbirdsNed JetloreAaliyah Fields, ([phone]) Ordering Provider: GEOFF HERNANDEZ Report Released Date/Time: Aug 14, 2024 10:22 AM Reporting Lab: [facility] [address] [place], [place] [phone] Performing Lab: [place] [id number] [facility] RESPIRAT ORY PCR PANEL INFLUENZA VIRUS B RNA [PRESENCE] IN NASOPHARYN X BY MANUEL WITH NON-PROBE DETECTION Not Detected 08/14 Specimen Type: NASOPHARYNX Comment: The FilmArray RP Panel combines nested multiplex PCR and DNA melting analysis for the simultaneou s qualitative detection and identificat ion of multiple respiratory viral and bacterial nucleic acids. A negative result does not preclude infection with the agent(s) tested and should not be used as the sole basis for treatment or other patient management decisions. Detection of organism target(s) does not imply that the correspondi ng organisms are infectious or are the causative agents for clinical symptoms. Results from this test must be correlated with the clinical history, epidemiolog ical data, and other data available to the clinician evaluating the patient. [employer] Jet[employer]Aaliyah Fields, ([phone]) Ordering Provider: GEOFF HERNANDEZ Report Released Date/Time: Aug 14, 2024 10:22 AM Reporting Lab: [facility] [address] [place], [place] [phone] Performing Lab: [facility] [address] [place] [facility] [address] [facility] RESPIRAT ORY PCR PANEL PARAINFLUE NZA VIRUS 1 RNA [PRESENCE] IN NASOPHARYN X BY MANUEL WITH NON-PROBE DETECTION Not Detected 08/14 Specimen Type: NASOPHARYNX Comment: The FilmArray RP Panel combines nested multiplex PCR and DNA melting analysis for the simultaneou s qualitative detection and identificat ion of multiple respiratory viral and bacterial nucleic acids. A negative result does not preclude infection with the agent(s) tested and should not be used as the sole basis for treatment or other patient management decisions. Detection of organism target(s) does not imply that the correspondi ng organisms are infectious or are the causative agents for clinical symptoms. Results from this test must be correlated with the clinical history, epidemiolog ical data, and other data available to the clinician evaluating the patient. testbirdsMasoud Marino, ([phone]) Ordering Provider: GEOFF HERNANDEZ Report Released Date/Time: Aug 14, 2024 10:22 AM Reporting Lab: [facility] [address] [place] [phone] Performing Lab: [facility] [address] [place] [phone] RESPIRAT ORY PCR PANEL PARAINFLUE NZA VIRUS 2 RNA [PRESENCE] IN NASOPHARYN X BY MANUEL WITH NON-PROBE DETECTION Not Detected 08/14 Specimen Type: NASOPHARYNX Comment: The FilmArray RP Panel combines nested multiplex PCR and DNA melting analysis for the simultaneou s qualitative detection and identificat ion of multiple respiratory viral and bacterial nucleic acids. A negative result does not preclude infection with the agent(s) tested and should not be used as the sole basis for treatment or other patient management decisions. Detection of organism target(s) does not imply that the correspondi ng organisms are infectious or are the causative agents for clinical symptoms. Results from this test must be correlated with the clinical history, epidemiolog ical data, and other data available to the clinician evaluating the patient. [employer] HILL, ([phone]) Ordering Provider: GEOFF HERNANDEZ Report Released Date/Time: Aug 14, 2024 10:22 AM Reporting Lab: [facility] [address] [facility] [address] Performing Lab: [address] [address] [facility] RESPIRAT ORY PCR PANEL PARAINFLUE NZA VIRUS 3 RNA [PRESENCE] IN NASOPHARYN X BY MANUEL WITH NON-PROBE DETECTION Not Detected 08/14 Specimen Type: NASOPHARYNX Comment: The FilmArray RP Panel combines nested multiplex PCR and DNA melting analysis for the simultaneou s qualitative detection and identificat ion of multiple respiratory viral and bacterial nucleic acids. A negative result does not preclude infection with the agent(s) tested and should not be used as the sole basis for treatment or other patient management decisions. Detection of organism target(s) does not imply that the correspondi ng organisms are infectious or are the causative agents for clinical symptoms. Results from this test must be correlated with the clinical history, epidemiolog ical data, and other data available to the clinician evaluating the patient. [employer] [facility], ([phone]) Ordering Provider: GEOFF HERNANDEZ Report Released Date/Time: Aug 14, 2024 10:22 AM Reporting Lab: [address] [address] Performing Lab: [address] [address] [facility] RESPIRAT ORY PCR PANEL PARAINFLUE NZA VIRUS 4 RNA [PRESENCE] IN NASOPHARYN X BY MANUEL WITH NON-PROBE DETECTION Not Detected 08/14 Specimen Type: NASOPHARYNX Comment: The FilmArray RP Panel combines nested multiplex PCR and DNA melting analysis for the simultaneou s qualitative detection and identificat ion of multiple respiratory viral and bacterial nucleic acids. A negative result does not preclude infection with the agent(s) tested and should not be used as the sole basis for treatment or other patient management decisions. Detection of organism target(s) does not imply that the correspondi ng organisms are infectious or are the causative agents for clinical symptoms. Results from this test must be correlated with the clinical history, epidemiolog ical data, and other data available to the clinician evaluating the patient. [employer] [place], ([phone]) Ordering Provider: GEOFF HERNANDEZ Report Released Date/Time: Aug 14, 2024 10:22 AM Reporting Lab: [facility] [address] [facility] [address] Performing Lab: [facility] [address] [facility] [address] [facility] RESPIRAT ORY PCR PANEL RESPIRATOR Y SYNCYTIAL VIRUS RNA [PRESENCE] IN NASOPHARYN X BY MANUEL WITH NON-PROBE DETECTION Not Detected 08/14 Specimen Type: NASOPHARYNX Comment: The EveryRack RP Panel combines nested multiplex PCR and DNA melting analysis for the simultaneou s qualitative detection and identificat ion of multiple respiratory viral and bacterial nucleic acids. A negative result does not preclude infection with the agent(s) tested and should not be used as the sole basis for treatment or other patient management decisions. Detection of organism target(s) does not imply that the correspondi ng organisms are infectious or are the causative agents for clinical symptoms. Results from this test must be correlated with the clinical history, epidemiolog ical data, and other data available to the clinician evaluating the patient. [employer] [facility], ([phone]) Ordering Provider: GEOFF HERNANDEZ Report Released Date/Time: Aug 14, 2024 10:22 AM Reporting Lab: [facility] [address] Performing Lab: [place] [address] [facility] [address] [facility] RESPIRAT ORY PCR PANEL BORDETELLA PERTUSSIS. PERTUSSIS TOXIN PROMOTER REGION [PRESENCE] IN NASOPHARYN X BY MANUEL WITH NON-PROBE DETECTION Not Detected 08/14 Specimen Type: NASOPHARYNX Comment: The FilmArray RP Panel combines nested multiplex PCR and DNA melting analysis for the simultaneou s qualitative detection and identificat ion of multiple respiratory viral and bacterial nucleic acids. A negative result does not preclude infection with the agent(s) tested and should not be used as the sole basis for treatment or other patient management decisions. Detection of organism target(s) does not imply that the correspondi ng organisms are infectious or are the causative agents for clinical symptoms. Results from this test must be correlated with the clinical history, epidemiolog ical data, and other data available to the clinician evaluating the patient. [employer] [facility], ([phone]) Ordering Provider: GEOFF HERNANDEZ Report Released Date/Time: Aug 14, 2024 10:22 AM Reporting Lab: [place] [phone] Performing Lab: [address] [address] [facility] RESPIRAT ORY PCR PANEL CHLAMYDOPH CHRISTINE PNEUMONIAE DNA [PRESENCE] IN NASOPHARYN X BY MANUEL WITH NON-PROBE DETECTION Not Detected 08/14 Specimen Type: NASOPHARYNX Comment: The FilmArray RP Panel combines nested multiplex PCR and DNA melting analysis for the simultaneou s qualitative detection and identificat ion of multiple respiratory viral and bacterial nucleic acids. A negative result does not preclude infection with the agent(s) tested and should not be used as the sole basis for treatment or other patient management decisions. Detection of organism target(s) does not imply that the correspondi ng organisms are infectious or are the causative agents for clinical symptoms. Results from this test must be correlated with the clinical history, epidemiolog ical data, and other data available to the clinician evaluating the patient. [employer] [facility], ([phone]) Ordering Provider: GEOFF HERNANDEZ Report Released Date/Time: Aug 14, 2024 10:22 AM Reporting Lab: [facility] [address] [place] [phone] Performing Lab: [address] [address] [facility] RESPIRAT ORY PCR PANEL MYCOPLASMA PNEUMONIAE DNA [PRESENCE] IN NASOPHARYN X BY MANUEL WITH NON-PROBE DETECTION Not Detected 08/14 Specimen Type: NASOPHARYNX Comment: The FilmArray RP Panel combines nested multiplex PCR and DNA melting analysis for the simultaneou s qualitative detection and identificat ion of multiple respiratory viral and bacterial nucleic acids. A negative result does not preclude infection with the agent(s) tested and should not be used as the sole basis for treatment or other patient management decisions. Detection of organism target(s) does not imply that the correspondi ng organisms are infectious or are the causative agents for clinical symptoms. Results from this test must be correlated with the clinical history, epidemiolog ical data, and other data available to the clinician evaluating the patient. [employer] [facility], ([phone]) Ordering Provider: GEOFF HERNANDEZ Report Released Date/Time: Aug 14, 2024 10:22 AM Reporting Lab: [facility] [address] [facility] [address] Performing Lab: [address] [address] [facility] RESPIRAT ORY PCR PANEL BORDETELLA PARAPERTUS SIS [id number] DNA [PRESENCE] IN NASOPHARYN X BY MANUEL WITH NON-PROBE DETECTION Not Detected 08/14 Specimen Type: NASOPHARYNX Comment: The EveryRack RP Panel combines nested multiplex PCR and DNA melting analysis for the simultaneou s qualitative detection and identificat ion of multiple respiratory viral and bacterial nucleic acids. A negative result does not preclude infection with the agent(s) tested and should not be used as the sole basis for treatment or other patient management decisions. Detection of organism target(s) does not imply that the correspondi ng organisms are infectious or are the causative agents for clinical symptoms. Results from this test must be correlated with the clinical history, epidemiolog ical data, and other data available to the clinician evaluating the patient. [employer], ([phone]) Ordering Provider: GEOFF HERNANDEZ Report Released Date/Time: Aug 14, 2024 10:22 AM Reporting Lab: [facility] [address] [facility] [address] Performing Lab: [address] [address] [facility] RESPIRAT ORY PCR PANEL SARS-COV-2 (COVID-19) RNA [PRESENCE] IN NASOPHARYN X BY MANUEL WITH NON-PROBE DETECTION Not Detected 08/14 Specimen Type: NASOPHARYNX Comment: The JetloreArray RP Panel combines nested multiplex PCR and DNA melting analysis for the simultaneou s qualitative detection and identificat ion of multiple respiratory viral and bacterial nucleic acids. A negative result does not preclude infection with the agent(s) tested and should not be used as the sole basis for treatment or other patient management decisions. Detection of organism target(s) does not imply that the correspondi ng organisms are infectious or are the causative agents for clinical symptoms. Results from this test must be correlated with the clinical history, epidemiolog ical data, and other data available to the clinician evaluating the patient. [employer] [facility], ([phone]) Ordering Provider: GEOFF HERNANDEZ Report Released Date/Time: Aug 14, 2024 10:22 AM Reporting Lab: [place] [address] Performing Lab: [address] [phone] [facility] TOTAL T3 (STL-PB) TRIIODOTHY RONINE (T3) [MASS/VOLU ME] IN SERUM OR PLASMA 119.24 ng/dL 58 - 159 08/01 Specimen Type: PLASMA No comment entered. Ordering Provider: GEOFF HERNANDEZ Report Released Date/Time: Jul 30, 2024 01:22 PM Reporting Lab: [address] [address] Performing Lab: [address] [phone] [place] [address] [facility] MICRAL/C REAT PROFILE (STL) ALBUMIN [MASS/VOLU ME] IN URINE 6.3 mg/L 07/23 Specimen Type: URINE No comment entered. Ordering Provider: GEOFF HERNANDEZ Report Released Date/Time: Jul 16, 2024 02:46 PM Reporting Lab: [place] [phone] Performing Lab: [address] [address] [facility] MICRAL/C REAT PROFILE (STL) ALBUMIN/CR EATININE [MASS RATIO] IN URINE 19 mg/g 0 - 29 07/23 Specimen Type: URINE No comment entered. Ordering Provider: GEOFF HERNANDEZ Report Released Date/Time: Jul 16, 2024 02:46 PM Reporting Lab: [address] [address] Performing Lab: [facility] [address] [facility] [address] [facility] MICRAL/C REAT PROFILE (STL) CREATININE [MASS/VOLU ME] IN URINE 33.7 mg/dL 63 - 166 07/23 L Specimen Type: URINE No comment entered. Ordering Provider: GEOFF HERNANDEZ Report Released Date/Time: Jul 16, 2024 02:46 PM Reporting Lab: [address] [address] Performing Lab: [address] [address] [facility] ALPHA-1 ANTITRYP SIN (STL-PB) ALPHA-1 ANTITRYPSI N (STL-PB) 230 mg/dL 84 - 200 07/23 H Specimen Type: PLASMA No comment entered. Ordering Provider: Georges VILLARREAL Report Released Date/Time: Jul 23, 2024 10:40 AM Reporting Lab: [address] [phone] Performing Lab: [place] [address] [facility] [address] [facility] LIPID PANEL (STL) CHOLESTERO L [MASS/VOLU ME] IN SERUM OR PLASMA 94 mg/dL 0 - 200 07/23 Specimen Type: PLASMA Comment: No hemolysis noted. Ordering Provider: GEOFF HERNANDEZ Report Released Date/Time: Jul 16, 2024 02:46 PM Reporting Lab: [facility] [address] [facility] [address] Performing Lab: [address] [address] [facility] LIPID PANEL (STL) TRIGLYCERI DE [MASS/VOLU ME] IN SERUM OR PLASMA 112 mg/dL 0 - 150 07/23 Specimen Type: PLASMA Comment: No hemolysis noted. Ordering Provider: GEOFF HERNANDEZ Report Released Date/Time: Jul 16, 2024 02:46 PM Reporting Lab: [place] [address] [facility] [address] Performing Lab: [place] [address] [facility] [address] [facility] LIPID PANEL (STL) CHOLESTERO L IN LDL [MASS/VOLU ME] IN SERUM OR PLASMA BY CALCULATIO N 40 mg/dL 07/23 Specimen Type: PLASMA Comment: No hemolysis noted. Ordering Provider: GEOFF HERNANDEZ Report Released Date/Time: Jul 16, 2024 02:46 PM Reporting Lab: [place] [address] [place] [phone] Performing Lab: [place] [address] [facility] [address] [facility] LIPID PANEL (STL) CHOLESTERO L IN HDL [MASS/VOLU ME] IN SERUM OR PLASMA 32 mg/dL 40 07/23 L Specimen Type: PLASMA Comment: No hemolysis noted. Ordering Provider: GEOFF HERNANDEZ Report Released Date/Time: Jul 16, 2024 02:46 PM Reporting Lab: [address] [address] Performing Lab: [address] [address] [facility] COMPREHE NSIVE METABOLI C PANEL CREATININE [MASS/VOLU ME] IN SERUM OR PLASMA 0.90 mg/dL 0.7 - 1.3 07/23 Specimen Type: PLASMA Comment: No hemolysis noted. Ordering Provider: GEOFF HERNANDEZ Report Released Date/Time: Jul 16, 2024 02:46 PM Reporting Lab: [place] [address] [facility] [address] Performing Lab: [address] [address] [facility] COMPREHE NSIVE METABOLI C PANEL UREA NITROGEN [MASS/VOLU ME] IN SERUM OR PLASMA 16.8 mg/dL 9.0 - 25.0 07/23 Specimen Type: PLASMA Comment: No hemolysis noted. Ordering Provider: GEOFF HERNANDEZ Report Released Date/Time: Jul 16, 2024 02:46 PM Reporting Lab: [facility] [address] [place] [phone] Performing Lab: [facility] [address] [place] [facility] [place] [address] [facility] COMPREHE NSIVE METABOLI C PANEL GLUCOSE [MASS/VOLU ME] IN SERUM OR PLASMA 106 mg/dL 72 - 99 07/23 H Specimen Type: PLASMA Comment: No hemolysis noted. Ordering Provider: GEOFF HERNANDEZ Report Released Date/Time: Jul 16, 2024 02:46 PM Reporting Lab: [facility] [address] [place] [phone] Performing Lab: [facility] [address] [place] [facility] [place] [address] [facility] COMPREHE NSIVE METABOLI C PANEL SODIUM [MOLES/VOL UME] IN SERUM OR PLASMA 143 meq/L 136 - 145 07/23 Specimen Type: PLASMA Comment: No hemolysis noted. Ordering Provider: GEOFF HERNANDEZ Report Released Date/Time: Jul 16, 2024 02:46 PM Reporting Lab: [facility] [place] [facility] [place] [address] Performing Lab: [facility] [address] [place] [facility] [place] [address] [facility] COMPREHE NSIVE METABOLI C PANEL POTASSIUM [MOLES/VOL UME] IN SERUM OR PLASMA 4.1 meq/L 3.5 - 5 07/23 Specimen Type: PLASMA Comment: No hemolysis noted. Ordering Provider: GEOFF HERANNDEZ Report Released Date/Time: Jul 16, 2024 02:46 PM Reporting Lab: [facility] [address] [place] [address] Performing Lab: [facility] [address] [place] [facility] [place] [address] [facility] COMPREHE NSIVE METABOLI C PANEL CHLORIDE [MOLES/VOL UME] IN SERUM OR PLASMA 102 meq/L 98 - 107 07/23 Specimen Type: PLASMA Comment: No hemolysis noted. Ordering Provider: GEOFF HERNANDEZ Report Released Date/Time: Jul 16, 2024 02:46 PM Reporting Lab: [place] [address] [place] [facility] [place] [address] Performing Lab: [place] [address] [facility] [address] [facility] COMPREHE NSIVE METABOLI C PANEL CARBON DIOXIDE, TOTAL [MOLES/VOL UME] IN SERUM OR PLASMA 30 meq/L 22 - 31 07/23 Specimen Type: PLASMA Comment: No hemolysis noted. Ordering Provider: GEOFF HERNANDEZ Report Released Date/Time: Jul 16, 2024 02:46 PM Reporting Lab: [place] [address] [place] [facility] [place] [address] Performing Lab: [place] [address] [place] [facility] [place] [address] [facility] COMPREHE NSIVE METABOLI C PANEL CALCIUM [MASS/VOLU ME] IN SERUM OR PLASMA 10.1 mg/dL 8.4 - 10.4 07/23 Specimen Type: PLASMA Comment: No hemolysis noted. Ordering Provider: GEOFF HERNANDEZ Report Released Date/Time: Jul 16, 2024 02:46 PM Reporting Lab: [facility] [address] Performing Lab: [place] [address] [facility] [address] [facility] COMPREHE NSIVE METABOLI C PANEL PROTEIN [MASS/VOLU ME] IN SERUM OR PLASMA 8.8 g/dL 6 - 8.6 07/23 H Specimen Type: PLASMA Comment: No hemolysis noted. Ordering Provider: GEOFF HERNANDEZ Report Released Date/Time: Jul 16, 2024 02:46 PM Reporting Lab: [facility] [address] [facility] [address] Performing Lab: [address] [phone] [facility] [address] [facility] COMPREHE NSIVE METABOLI C PANEL ALBUMIN [MASS/VOLU ME] IN SERUM OR PLASMA 4.2 g/dL 3.4 - 5 07/23 Specimen Type: PLASMA Comment: No hemolysis noted. Ordering Provider: GEOFF HERNANDEZ Report Released Date/Time: Jul 16, 2024 02:46 PM Reporting Lab: [address] [address] Performing Lab: [address] [phone] [place] [address] [facility] COMPREHE NSIVE METABOLI C PANEL BILIRUBIN. TOTAL [MASS/VOLU ME] IN SERUM OR PLASMA 0.5 mg/dL 0.2 - 1.2 07/23 Specimen Type: PLASMA Comment: No hemolysis noted. Ordering Provider: GEOFF HERNANDEZ Report Released Date/Time: Jul 16, 2024 02:46 PM Reporting Lab: [address] [address] Performing Lab: [place] [address] [facility] [address] [place] [address] [facility] COMPREHE NSIVE METABOLI C PANEL ALKALINE PHOSPHATAS E [ENZYMATIC ACTIVITY/V OLUME] IN SERUM OR PLASMA 109 U/L 40 - 150 07/23 Specimen Type: PLASMA Comment: No hemolysis noted. Ordering Provider: GEOFF HERNANDEZ Report Released Date/Time: Jul 16, 2024 02:46 PM Reporting Lab: [address] [address] Performing Lab: [address] [address] [facility] COMPREHE NSIVE METABOLI C PANEL ASPARTATE AMINOTRANS FERASE [ENZYMATIC ACTIVITY/V OLUME] IN SERUM OR PLASMA 19 U/L 5 - 34 07/23 Specimen Type: PLASMA Comment: No hemolysis noted. Ordering Provider: GEOFF HERNANDEZ Report Released Date/Time: Jul 16, 2024 02:46 PM Reporting Lab: [address] [address] Performing Lab: [place] [address] [facility] [phone] [facility] COMPREHE NSIVE METABOLI C PANEL ALANINE AMINOTRANS FERASE [ENZYMATIC ACTIVITY/V OLUME] IN SERUM OR PLASMA 18 U/L 8 - 40 07/23 Specimen Type: PLASMA Comment: No hemolysis noted. Ordering Provider: GEOFF HERNANDEZ Report Released Date/Time: Jul 16, 2024 02:46 PM Reporting Lab: [address] [address] Performing Lab: [address] [phone] [place] [address] [facility] COMPREHE NSIVE METABOLI C PANEL GLOMERULAR FILTRATION RATE/1.73 SQ M.PREDICTE D [VOLUME RATE/AREA] IN SERUM, PLASMA OR BLOOD BY CREATININE -BASED FORMULA (CKD-EPI 2020) 88.5 60 07/23 Specimen Type: PLASMA Comment: No hemolysis noted. Ordering Provider: GEOFF HERNANDEZ Report Released Date/Time: Jul 16, 2024 02:46 PM Reporting Lab: [address] [address] Performing Lab: [address] [phone] [place] [address] [facility] HGA1C HEMOGLOBIN A1C/HEMOGL OBIN.TOTAL IN BLOOD 6.2 4.0 - 6.0 07/23 H Specimen Type: BLOOD No comment entered. Ordering Provider: GEOFF HERNANDEZ Report Released Date/Time: Jul 16, 2024 02:46 PM Reporting Lab: [place] [address] [facility] [address] Performing Lab: [address] [phone] [place] [address] [facility] TSH W/ REFLEX FT4 (STL) THYROTROPI N [UNITS/VOL UME] IN SERUM OR PLASMA 0.052 u[IU]/mL 0.47 - 5 07/23 L Specimen Type: PLASMA No comment entered. Ordering Provider: GEOFF HERNANDEZ Report Released Date/Time: Jul 16, 2024 02:46 PM Reporting Lab: [place] [address] Performing Lab: [address] [facility] TSH W/ REFLEX FT4 (STL) FREE T4(REFLEX) 1.27 ng/mL 0.7 - 1.48 07/23 Specimen Type: PLASMA No comment entered. Ordering Provider: GEOFF HERNANDEZ Report Released Date/Time: Jul 16, 2024 02:46 PM Reporting Lab: [place] [address] Performing Lab: [address] [facility] CBC LEUKOCYTES [#/VOLUME] IN BLOOD BY AUTOMATED COUNT 8.4 10*3/uL 3.6 - 11.2 07/23 Specimen Type: BLOOD No comment entered. Ordering Provider: GEOFF HERNANDEZ Report Released Date/Time: Jul 16, 2024 02:46 PM Reporting Lab: [place] [address] Performing Lab: [address] [facility] CBC ERYTHROCYT ES [#/VOLUME] IN BLOOD BY AUTOMATED COUNT 5.34 10*6/uL 4.10 - 5.70 07/23 Specimen Type: BLOOD No comment entered. Ordering Provider: GEOFF HERNANDEZ Report Released Date/Time: Jul 16, 2024 02:46 PM Reporting Lab: [place] [address] Performing Lab: [address] [address] [facility] CBC HEMOGLOBIN [MASS/VOLU ME] IN BLOOD 15.3 g/dL 13.1 - 16.8 07/23 Specimen Type: BLOOD No comment entered. Ordering Provider: GEOFF HERNANDEZ Report Released Date/Time: Jul 16, 2024 02:46 PM Reporting Lab: [place] [phone] Performing Lab: [address] [phone] [place] [address] [facility] CBC HEMATOCRIT [VOLUME FRACTION] OF BLOOD 48.6 38.2 - 48.4 07/23 H Specimen Type: BLOOD No comment entered. Ordering Provider: GEOFF HERNANDEZ Report Released Date/Time: Jul 16, 2024 02:46 PM Reporting Lab: [address] [address] Performing Lab: [address] [phone] [place] [address] [facility] CBC MCV [ENTITIC VOLUME] BY AUTOMATED COUNT 91.0 fL 80.0 - 100.0 07/23 Specimen Type: BLOOD No comment entered. Ordering Provider: GEOFF HERNANDEZ Report Released Date/Time: Jul 16, 2024 02:46 PM Reporting Lab: [address] [address] Performing Lab: [address] [phone] [place] [address] [facility] CBC MCH [ENTITIC MASS] BY AUTOMATED COUNT 28.7 pg 27.0 - 34.0 07/23 Specimen Type: BLOOD No comment entered. Ordering Provider: GEOFF HERNANDEZ Report Released Date/Time: Jul 16, 2024 02:46 PM Reporting Lab: [address] [address] Performing Lab: [address] [phone] [place] [address] [facility] CBC MCHC [MASS/VOLU ME] BY AUTOMATED COUNT 31.5 g/dL 33.0 - 36.0 07/23 L Specimen Type: BLOOD No comment entered. Ordering Provider: GEOFF HERNANDEZ Report Released Date/Time: Jul 16, 2024 02:46 PM Reporting Lab: [place] [phone] Performing Lab: [address] [phone] [place] [address] [facility] CBC PLATELETS [#/VOLUME] IN BLOOD BY AUTOMATED COUNT 326 10*3/uL 150 - 400 07/23 Specimen Type: BLOOD No comment entered. Ordering Provider: GEOFF HERNANDEZ Report Released Date/Time: Jul 16, 2024 02:46 PM Reporting Lab: [place] [phone] Performing Lab: [address] [phone] [place] [address] [facility] CBC PLATELET MEAN VOLUME [ENTITIC VOLUME] IN BLOOD BY AUTOMATED COUNT 9.5 fL 7.5 - 11.2 07/23 Specimen Type: BLOOD No comment entered. Ordering Provider: GEOFF HERNANDEZ Report Released Date/Time: Jul 16, 2024 02:46 PM Reporting Lab: [address] [address] Performing Lab: [address] [address] [facility] CBC ERYTHROCYT E DISTRIBUTI ON WIDTH [RATIO] BY AUTOMATED COUNT 13.9 11.8 - 15.1 07/23 Specimen Type: BLOOD No comment entered. Ordering Provider: GEOFF HERNANDEZ Report Released Date/Time: Jul 16, 2024 02:46 PM Reporting Lab: [address] [address] Performing Lab: [address] [phone] [place] [address] [facility] CBC SEGMENTED NEUTROPHIL S/100 LEUKOCYTES IN BLOOD BY MANUAL COUNT 49.5 07/23 Specimen Type: BLOOD No comment entered. Ordering Provider: GEOFF HERNANDEZ Report Released Date/Time: Jul 16, 2024 02:46 PM Reporting Lab: [facility] [address] [facility] [address] Performing Lab: [facility] [address] [facility] [address] [facility] CBC EOSINOPHIL S/100 LEUKOCYTES IN BLOOD BY MANUAL COUNT 29.2 07/23 Specimen Type: BLOOD No comment entered. Ordering Provider: GEOFF HERNANDEZ Report Released Date/Time: Jul 16, 2024 02:46 PM Reporting Lab: [facility] [address] [place] [address] Performing Lab: [facility] [address] [place], [place] [phone] [facility] CBC BASOPHILS/ 100 LEUKOCYTES IN BLOOD BY MANUAL COUNT 1.8 07/23 Specimen Type: BLOOD No comment entered. Ordering Provider: GEOFF HERNANDEZ Report Released Date/Time: Jul 16, 2024 02:46 PM Reporting Lab: [facility] [facility] [address] [place] [phone] Performing Lab: [facility] [address] [place] [phone] [facility] CBC LYMPHOCYTE S/100 LEUKOCYTES IN BLOOD BY MANUAL COUNT 8.0 07/23 Specimen Type: BLOOD No comment entered. Ordering Provider: GEOFF HERNANDEZ Report Released Date/Time: Jul 16, 2024 02:46 PM Reporting Lab: [facility] [address] [place] [phone] Performing Lab: [facility] [address] [place] [phone] [facility] CBC VARIANT LYMPHOCYTE S/100 LEUKOCYTES IN BLOOD BY MANUAL COUNT 11.5 07/23 Specimen Type: BLOOD No comment entered. Ordering Provider: GEOFF HERNANDEZ Report Released Date/Time: Jul 16, 2024 02:46 PM Reporting Lab: [place] [phone] Performing Lab: [facility] [address] [place] [phone] [facility] CBC BASOPHILS [#/VOLUME] IN BLOOD BY MANUAL COUNT 0.15 10*3/uL 0.01 - 0.20 07/23 Specimen Type: BLOOD No comment entered. Ordering Provider: GEOFF HERNANDEZ Report Released Date/Time: Jul 16, 2024 02:46 PM Reporting Lab: [place] [phone] Performing Lab: [address] [phone] [facility] CBC EOSINOPHIL S [#/VOLUME] IN BLOOD BY MANUAL COUNT 2.45 10*3/uL 0.00 - 0.60 07/23 H Specimen Type: BLOOD No comment entered. Ordering Provider: GEOFF HERNANDEZ Report Released Date/Time: Jul 16, 2024 02:46 PM Reporting Lab: [place] [phone] Performing Lab: [address] [phone] [facility] CBC LYMPHOCYTE S [#/VOLUME] IN BLOOD BY MANUAL COUNT 1.64 10*3/uL 0.77 - 4.50 07/23 Specimen Type: BLOOD No comment entered. Ordering Provider: GEOFF HERNANDEZ Report Released Date/Time: Jul 16, 2024 02:46 PM Reporting Lab: [facility] [address] [place], [place] [phone] Performing Lab: [address] [phone] [facility] CBC NEUTROPHIL S [#/VOLUME] IN BLOOD BY MANUAL COUNT 4.16 10*3/uL 2.10 - 8.00 07/23 Specimen Type: BLOOD No comment entered. Ordering Provider: GEOFF HERNANDEZ Report Released Date/Time: Jul 16, 2024 02:46 PM Reporting Lab: [place] [address] Performing Lab: [address] [facility] CBC PAPPENHEIM ER BODIES 0 07/23 Specimen Type: BLOOD No comment entered. Ordering Provider: GEOFF HERNANDEZ Report Released Date/Time: Jul 16, 2024 02:46 PM Reporting Lab: [place] [address] [place] [address] Performing Lab: [address] [facility] CBC PLATELET ADEQUACY [PRESENCE] IN BLOOD BY LIGHT MICROSCOPY DECREASE D 07/23 Specimen Type: BLOOD No comment entered. Ordering Provider: GEOFF HERNANDEZ Report Released Date/Time: Jul 16, 2024 02:46 PM Reporting Lab: [place] [address] Performing Lab: [address] [facility] CBC MANUAL DIFFERENTI AL COMMENT [INTERPRET ATION] IN BLOOD NARRATIVE Yes 07/23 Specimen Type: BLOOD No comment entered. Ordering Provider: GEOFF HERNANDEZ Report Released Date/Time: Jul 16, 2024 02:46 PM Reporting Lab: [place] [address] Performing Lab: [place] [address] [facility] IMMUNOGL OBULIN E IGE [UNITS/VOL UME] IN SERUM OR PLASMA 52 kU/L - 114 07/23 Specimen Type: SERUM Comment: Test Performed by [employer] [facility], [address] [place] [address] Bandar De La Garza M.D., Ph.D., Director of Laboratorie s , [facility] [id number] Ordering Provider: Georges VILLARREAL Report Released Date/Time: Jul 23, 2024 10:40 AM Reporting Lab: [facility] [address] [facility] [phone] Performing Lab: [facility] [address] [facility] [address] [facility] Vital Signs Combined list of inpatient and outpatient Vital Signs from Department of Defense and Veterans Affairs, ranging from 12 months to all on record, depending upon the facility. Vital Sign Value Date Comments Source SYSTOLIC BLOOD PRESSURE 144 08/29/2024 14:18:[address] [facility] DIASTOLIC BLOOD PRESSURE 82 08/29/2024 14:18:[address] [facility] PULSE OXIMETRY 95 08/29/2024 14:18:23 [facility] PULSE 65 08/29/2024 14:18:23 [facility] SYSTOLIC BLOOD PRESSURE 163 08/27/2024 15:00:[address] [facility] DIASTOLIC BLOOD PRESSURE 79 08/27/2024 15:00:[address] [facility] PULSE OXIMETRY 93 08/27/2024 15:00:00 [facility] PULSE 70 08/27/2024 15:00:00 [facility] SYSTOLIC BLOOD PRESSURE 137 08/22/2024 13:00:[address] [facility] DIASTOLIC BLOOD PRESSURE 77 08/22/2024 13:00:[address] [facility] PULSE OXIMETRY 93 08/22/2024 13:00:00 [facility] PULSE 63 08/22/2024 13:00:00 [facility] SYSTOLIC BLOOD PRESSURE 147 08/20/2024 13:00:[address] [facility] DIASTOLIC BLOOD PRESSURE 71 08/20/2024 13:00:[address] [facility] PULSE OXIMETRY 95 08/20/2024 13:00:00 [facility] PULSE 64 08/20/2024 13:00:00 [facility] SYSTOLIC BLOOD PRESSURE 112 08/15/2024 13:00:00 [facility] DIASTOLIC BLOOD PRESSURE 64 08/15/2024 13:00:00 [facility] PULSE OXIMETRY 95 08/15/2024 13:00:00 [facility] PULSE 73 08/15/2024 13:00:00 [facility] Encounters Combined list of: 1) Encounters from Department of [facility] facilities going backup to the last 18 months, not all [place] inpatient encounters are included; 2) Encounters from the Department of [facility] facilities going backup to 280 months. Location Location Details Encounter Type Encounter Number Reason For Visit Attending Provider ADM Date DC Date Status Disposition Source [facility] Outpatient Encounter [id number] 05/05 [facility] Outpatient Encounter [id number] 07/26 [facility] OFFICE O/P EST LOW 20 MIN [id number] Diagnos is: ICD-10- CM R06.02 Shortne ss of breath Jeronimo HERNANDEZ 07/28 [facility] Outpatient Encounter [id number] FIDELINA DEVINE 07/28 [facility] Outpatient Encounter [id number] 08/03 [facility] Outpatient Encounter [id number] 1 08/06 [facility] Outpatient Encounter [id number] 08/06 [facility] Outpatient Encounter [id number] [id number] 08/07 [facility] Outpatient Encounter [id number] [id number] 08/10 [facility] Outpatient Encounter [id number] [id number] 08/10 [facility] OFFICE O/P EST LOW 20 MIN [id number] Diagnos is: ICD-10- CM I10 Essenti al (primar y) hyperte nsJeronimo Leyva 08/30 [facility] Outpatient Encounter [id number] [id number] ALICIA PEDROZA 09/04 [facility] Outpatient Encounter [id number] [id number] 09/04 [facility] Outpatient Encounter [id number] [id number] 09/04 [facility] Outpatient Encounter [id number] 09/04 [facility] Outpatient Encounter [id number] 09/11 [facility] Outpatient Encounter [id number] 09/12 [facility] Outpatient Encounter [id number] 09/13 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 ROLAND LACEY 10/04 [facility] Outpatient Encounter [id number] 10/08 [facility] HC PRO PHONE CALL 5-10 MIN [id number] [id number] 7 Diagnos is: ICD-10- CM J44.9 Chronic obstruc tive pulmona ry disease , unspeci fied Klaus VERDUGO 10/09 [facility] MEASURE BLOOD OXYGEN LEVEL [id number] [id number] 7 Diagnos is: ICD-10- CM J44.9 Chronic obstruc tive pulmona ry disease , unspeci fied WUBUZZ AVENDAÑO R 10/10 [facility] OFF/OP CNSLTJ NEW/EST MOD 40 [id number] Diagnos is: ICD-10- CM J44.9 Chronic obstruc tive pulmona ry disease , unspeci fied CARTER ROCHA 10/10 [facility] Outpatient Encounter [id number] 10/18 [facility] Outpatient Encounter [id number] [id number] 10/24 [facility] HC PRO PHONE CALL 5-10 MIN [id number] [id number] Diagnos is: ICD-10- CM J44.9 Chronic obstruc tive pulmona ry disease , unspeci fied MARIAH MARQUEZ P 10/24 [facility] Outpatient Encounter [id number] ALICIA PEDROZA NDOLYN 10/25 [facility] Outpatient Encounter [id number] [id number] 11/01 [facility] INSERT CATH PLEURA W/ IMAGE [id number] [id number] Diagnos is: ICD-10- CM J90 Pleural effusio n, not elsewhe re classif ied CARTER ROCHA 11/01 [facility] Outpatient Encounter [id number] [id number] 11/01 [facility] Outpatient Encounter [id number] [id number] 1 MADDY GASTON S 11/01 [facility] Outpatient Encounter [id number] [id number] MARIO GASTONAT S 11/02 [facility] Outpatient Encounter [id number] [id number] DAGMAR CINTRON NA 11/02 [facility] Outpatient Encounter [id number] [id number] 1 11/08 [facility] Outpatient Encounter [id number] [id number] 11/09 [facility] Outpatient Encounter [id number] [id number] ALICIA PEDROZAN 11/09 [facility] OFFICE O/P NEW MOD 45 MIN [id number] [id number] Diagnos is: ICD-10- CM R94.6 Abnorma l results of thyroid functio n studies PICHARDO-JACQUI MATIASSOPHIE OS 11/12 [facility] Outpatient Encounter [id number] [id number] 11/15 [facility] Outpatient Encounter [id number] [id number] 11/26 [facility] HC PRO PHONE CALL 5-10 MIN [id number] [id number] Diagnos is: ICD-10- CM J44.9 Chronic obstruc tive pulmona ry disease , unspeci fied STRIEGEL,C YNTHIA A 11/26 [facility] QNHP OL DIG ASSMT&MGMT 5-10 [id number] [id number] 1 Diagnos is: ICD-10- CM J44.9 Chronic obstruc tive pulmona ry disease , unspeci fied STRIEGEL,C YNTHIA A 11/29 [facility] HC PRO PHONE CALL 5-10 MIN [id number] [id number] Diagnos is: ICD-10- CM J44.9 Chronic obstruc tive pulmona ry disease , unspeci fied STRIEGEL,C YNTHIA A 12/20 [facility] OFFICE O/P EST HI 40 MIN [id number] [id number] Diagnos is: ICD-10- CM J96.11 Chronic respira tory failure with hypoxia AJCARTER ELOY EUCEDA 01/11 [facility] HOME VISIT RESP THERAPY [id number] [id number] Diagnos is: ICD-10- CM J44.9 Chronic obstruc tive pulmona ry disease , unspeci fiCHRISSY Cavazos M 01/11 [facility] Outpatient Encounter [id number] 01/17 [facility] Outpatient Encounter [id number] [id number] VITA EPPERSON 01/25 [facility] Outpatient Encounter [id number] [id number] 01/27 [facility] Outpatient Encounter [id number] [id number] VITA EPPERSON M 02/05 [facility] Outpatient Encounter [id number] [id number] 02/05 [facility] OFFICE O/P EST MOD 30 MIN [id number] [id number] Diagnos is: ICD-10- CM Z23 Encount er for immuniz Jeronimo Caba 02/06 [facility] Outpatient Encounter [id number] [id number] 02/07 [facility] Outpatient Encounter [id number] [id number] 02/08 [facility] Outpatient Encounter [id number] Diagnos is: ICD-10- CM I95.0 Idiopat hic hypoten jammie OU,[facility] 02/11 [facility] OFF/OP CNSLTJ NEW/EST MOD 40 [id number] [id number] Diagnos is: ICD-10- CM I50.32 Chronic diastol ic (conges tive) heart failure OU,[facility] 02/26 [facility] IMG RTA DETCJ/MNTR DS STAFF [id number] [id number] 8 Diagnos is: ICD-10- CM Z13.5 Encount er for screeni ng for eye and ear disorde Jeronimo Baldwin 02/26 [facility] Outpatient Encounter [id number] [id number] Diagnos is: ICD-10- CM Z13.5 Encount er for screeni ng for eye and ear disorde CIELO Gudino 02/27 [facility] OFFICE O/P EST HI 40 MIN [id number] [id number] 1 Diagnos is: ICD-10- CM J44.9 Chronic obstruc tive pulmona ry disease , unspeci fied DEMVENESSA, NIKO 04/26 [facility] OFF/OP CNSLTJ NEW/EST LOW 30 [id number] [id number] 2 Diagnos is: ICD-10- CM J44.89 Other specifi ed chronic obstruc tive pulmona ry disease OHLMS,PRO Y 05/07 [facility] Outpatient Encounter [id number] [id number] 05/31 [facility] Outpatient Encounter [id number] [id number] 06/03 [facility] Outpatient Encounter [id number] [id number] ALICIA PEDROZA NDJENISEN 06/04 [facility] Outpatient Encounter [id number] [id number] 06/19 [facility] Outpatient Encounter [id number] [id number] JOSSUE LIMON N 06/19 [facility] Outpatient Encounter [id number] [id number] 06/19 [facility] Outpatient Encounter [id number] [id number] 06/20 [facility] Outpatient Encounter [id number] [id number] 06/20 [facility] Outpatient Encounter [id number] [id number] 06/21 [facility] PH1 ASSMT&MGMT NQHP 11-20 [id number] [id number] Diagnos is: ICD-10- CM I50.32 Chronic diastol ic (conges tive) heart failure ALICIA PEDROZA NDJENISEN 06/21 [facility] NQHP OL DIG ASSMT&MGMT 11-20 [id number] [id number] 7 Diagnos is: ICD-10- CM Z51.81 Encount er for therape utic drug level monitor chandra LE CH RISTOPHER D 06/22 [facility] OFFICE O/P EST HI 40 MIN [id number] [id number] 7 Diagnos is: ICD-10- CM 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 OU,JIAFU 07/03 [facility] Outpatient Encounter [id number] [id number] 07/15 [facility] Outpatient Encounter [id number] [id number] Diagnos is: ICD-10- CM 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 OU,JIAFU 07/15 [facility] PH1 ASSMT&MGMT NQHP 11-20 [id number] [id number] Diagnos is: ICD-10- CM I10 Essenti al (primar y) hyperte ISMAEL PandaLL 07/15 [facility] Outpatient Encounter [id number] [id number] EVELYN CARLIN 07/23 [facility] OFFICE O/P EST HI 40 MIN [id number] [id number] 2 Diagnos is: ICD-10- CM J44.9 Chronic obstruc tive pulmona ry disease , unspeci fiNIKO Rtoh 07/23 [facility] Outpatient Encounter [id number] [id number] Diagnos is: ICD-10- CM 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 OU,JIAFU 07/23 [facility] Outpatient Encounter [id number] [id number] 07/29 [facility] Outpatient Encounter [id number] [id number] 07/30 [facility] Outpatient Encounter [id number] [id number] 07/30 [facility] Outpatient Encounter [id number] [id number] 1 YOVANYALICIA NENA 07/31 [facility] OFF/OP CNSLTJ NEW/EST LOW 30 [id number] [id number] Diagnos is: ICD-10- CM J44.9 Chronic obstruc tive pulmona ry disease , unspeci fied [place] WETZEL 08/05 [facility] Outpatient Encounter [id number] [id number] Diagnos is: ICD-10- CM J44.9 Chronic obstruc tive pulmona ry disease , unspeci fied SP CORONA 08/06 [facility] Outpatient Encounter [id number] [id number] 08/06 [facility] Outpatient Encounter [id number] [id number] YOVANYALICIA NENA 08/13 [facility] OFFICE O/P EST LOW 20 MIN [id number] [id number] Diagnos is: ICD-10- CM I10 Essenti al (primar y) hyperte nsion DAVID,Jeronimo HARO L 08/14 [facility] Outpatient Encounter [id number] [id number] 1 Diagnos is: ICD-10- CM 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 OU,JIAFU 08/15 [facility] SELF CARE MNGMENT TRAINING 57434-6.65 [id number] Diagnos is: ICD-10- CM J44.9 Chronic obstruc tive pulmona ry disease , unspeci fied JAYASHREE TODD 08/15 [facility] SELF CARE MNGMENT TRAINING 43129-3.65 [id number] Diagnos is: ICD-10- CM J44.89 Other specifi ed chronic obstruc tive pulmona ry disease JAYASHREE TODD 08/15 [facility] PHY/QHP OP PULM RHB W/O MNTR 44287-7.65 [id number] Diagnos is: ICD-10- CM J44.9 Chronic obstruc tive pulmona ry disease , unspeci fied SP CORONA E 08/15 [facility] EDU&TRN PT SLF-MGMT NQHP 2-4 [id number] [id number] 134 Diagnos is: ICD-10- CM J44.89 Other specifi ed chronic obstruc tive pulmona ry disease CHEYANNE JORDAN MELANIE 08/15 [facility] PHY/QHP OP PULM RHB W/O MNTR 25762-3.65 [id number] Diagnos is: ICD-10- CM I25.10 Athscl heart disease of jackson coronar y artery w/o ang cassandra QUEEN,THE QI M 08/20 [facility] THERAPEUTI C PROCEDURES [id number] [id number] Diagnos is: ICD-10- CM J44.89 Other specifi ed chronic obstruc tive pulmona ry disease ADDIE ROWLEYA 08/20 [facility] Outpatient Encounter [id number] [id number] Diagnos is: ICD-10- CM J44.9 Chronic obstruc tive pulmona ry disease , unspeci olu QUEEN,THE QI 08/20 [facility] Outpatient Encounter [id number] [id number] 08/21 [facility] THERAPEUTI C EXERCISES 54615-7.65 [id number] Diagnos is: ICD-10- CM J44.89 Other specifi ed chronic obstruc tive pulmona ry disease JAYASHREE TODD M 08/22 [facility] PHY/QHP OP PULM RHB W/O MNTR 86332-3.65 [id number] 089 Diagnos is: ICD-10- CM J44.9 Chronic obstruc tive pulmona ry disease , unspeci olu QUEEN,THE QI M 08/22 [facility] PSYCHOTHER APY 87473-0.65 [id number] Diagnos is: ICD-10- CM J44.9 Chronic obstruc tive pulmona ry disease , unspeci fied ANNELISE ALFREDO 08/22 [facility] PHY/QHP OP PULM RHB W/O MNTR 95176-7.65 [id number] 140 Diagnos is: ICD-10- CM J44.9 Chronic obstruc tive pulmona ry disease , unspeci fied LUCIO QUEEN M 08/[address] [facility] THERAPEUTI C EXERCISES 57815-6.65 [id number] Diagnos is: ICD-10- CM J44.89 Other specifi ed chronic obstruc tive pulmona ry disease ADDIE ROWLEY 08/[address] [facility] PHY/QHP OP PULM RHB W/O MNTR 07460-8.65 [id number] Diagnos is: ICD-10- CM J44.9 Chronic obstruc tive pulmona ry disease , unspeci fied SP CORONA E 08/[address] [facility] GROUP THERAPEUTI C PROCEDURES [id number] Diagnos is: ICD-10- CM J44.89 Other specifi ed chronic obstruc tive pulmona ry disease JAYASHREE TODD 08/[address] [facility] EDU&TRN PT SLF-MGMT NQHP 2-4 [id number] Diagnos is: ICD-10- CM J44.89 Other specifi ed chronic obstruc tive pulmona ry disease CHEYANNE JORDAN 08/[address] [facility] Social History Combined list of available smoking, tobacco, and other social history from Department of Defense and Veterans Affairs facilities. Social History Type Response Date Comment Sourc e Tobacco smoking status NHIS VA-TOBACCO USE FORMER CIGARETTES 04/26/2024 [facility] History of tobacco use VA-TOBACCO NEVER USED OTHER TYPE 04/26/2024 [facility] History of tobacco use VA-TOBACCO QUIT 15 YRS OR MORE 07/28/2023 [facility] History of tobacco use [place]-TOBACCO USER EVERY DAY 07/29/2022 [facility] Plan of Care List of future care activities from [facility] of [facility] Affairs facilities. Additional future care activities may be listed in the Assessment and Plan section. Date/Time Care Activity Care Activity Detail Facili ty 09/03/2024 AMBULATORY - REHAB MEDICINE AMBULATORY - REHAB MEDICINE [facility]
--- OUTSIDE RECORDS SUMMARY | 2024-09-01 12:56 | XMS_ITS ---
Author Name [facility] [place] Address [address] [place] [id number] Care Team Providers Care Vitreo Retinal Surgeon Name Role Phone COLBY HERNANDEZ Primary Care [...] Mullen's Name Patient's Relationship to Policy Mullen [facility] (WNR) MEDICARE ADVANTAGE [facility] (WNR) Jun 05, 2022 [id number] Robel CARBALLO PATIENT [facility] (WNR) MEDICARE ADVANTAGE [facility] (WNR) Jun 05, 2022 [id number] Robel CARBALLO PATIENT [facility] (WNR) MEDICARE ADVANTAGE [facility] (WNR) Jun 05, 2022 [id number] Robel CARBALLO PATIENT Selected Encounter This section includes the information on record at [place] for the Encounter. Date/Time Encounter Type Encounter Description Reason Provider Source Jun 19, 2024 12:28 PM Outpatient Encounter GENERAL INTERNAL MEDICINE RAMSEY LIMON Encounter Template Text not used by [place] Plan of Treatment: Future Appointments (+ 6 months) and Future Tests (+/- 45 days) The Plan of Treatment section includes future care activities for the patient from [facility] [place] [facility]. This section includes future appointments and future orders which are active, pending or scheduled. Future Appointments This section includes appointments that were scheduled to occur 6 months from the date of the Encounter, up to a maximum of 20 appointments. The data comes from all [place] [facility]. Appointment Date/Time Appointment Type Appointme nt Facility Name Jun 21, 2024 10:00 AM AMBULATORY - MEDICINE [facility] Jul 03, 2024 01:00 PM AMBULATORY - MEDICINE [facility] Jul 23, 2024 10:00 AM AMBULATORY - MEDICINE [facility] Aug 05, 2024 10:00 AM AMBULATORY - MEDICINE [facility] Aug 06, 2024 09:00 AM AMBULATORY - REHAB MEDICIN E [facility] Aug 14, 2024 10:00 AM AMBULATORY - MEDICINE [facility] Aug 15, 2024 11:00 AM AMBULATORY - REHAB MEDICIN E [facility] Aug 15, 2024 01:00 PM AMBULATORY - REHAB MEDICIN E [facility] Aug 15, 2024 02:00 PM AMBULATORY - NONE [facility] Aug 20, 2024 01:00 PM AMBULATORY - REHAB MEDICIN E [facility] Aug 20, 2024 02:00 PM AMBULATORY - REHAB MEDICIN E [facility] Aug 22, 2024 01:00 PM AMBULATORY - REHAB MEDICIN E [facility] Aug 22, 2024 02:00 PM AMBULATORY - PSYCHIATRY [facility] Aug 27, 2024 01:00 PM AMBULATORY - REHAB MEDICIN E [facility] Aug 29, 2024 01:00 PM AMBULATORY - REHAB MEDICIN E [facility] Aug 29, 2024 02:00 PM AMBULATORY - NONE [facility] Sep 03, 2024 01:00 PM AMBULATORY - REHAB MEDICIN E [facility] Sep 03, 2024 02:00 PM AMBULATORY - REHAB MEDICIN E [facility] Sep 05, 2024 01:00 PM [facility] Sep 05, 2024 02:00 PM AMBULATORY - PSYCHIATRY [facility] Social History: Smoking Status (Most current) and Tobacco Use (All prior to encounter date) This section includes the most current, and the historical, smoking and tobacco- related health factors from the [place] facility where the Encounter took place. Current Smoking Status This section includes the most current smoking, or tobacco-related health factor, from the [place] facility where the Encounter took place. Date/Time Current Smoking Status Comment Facil ity Apr 26, 2024 10:30 AM VA-TOBACCO USE FOR FILI CIGARETTES [facility] Tobacco Use History This section includes a history of the smoking, or tobacco-related health factors, that were collected on or before the date of the Encounter. The data comes from the [place] facility where the Encounter took place. Date/Time Smoking Status/Tobacco Use Comment F acility Apr 26, 2024 10:30 AM VA-TOBACCO USE FOR FILI CIGARETTES [facility] Encounter Notes: All associated encounter notes This section contains the clinical notes associated to the Encounter. Date/Time Encounter Note(s) Provider Source Jun 19, 2024 04:45 PM ADDENDUM: LOCAL TITLE: Addendum STANDARD TITLE: ADDENDUM DATE OF NOTE: JUN 19, 2024@16:45 ENTRY DATE: JUN 19, 2024@16:45:01 AUTHOR: COLBY HERNANDEZ EXP COSIGNER: URGENCY: STATUS: COMPLETED Alerting RNCM, please assist with obtaining hospital summary /day/ BRENDAN LAGUERRE, AGNP-C NURSE PRACTITIONER Signed: 06/19/2024 16:45 Receipt Acknowledged By: 06/21/2024 11:48 /day/ GIANNA MCCLAIN REGISTERED NURSE ====== --- Original Document --- 06/16/24 [facility] PRESENTING CARE COORD PLAN 657 STL: Emergency Notification Intake Date Presenting to the Facility: Jun Method of Contact: Submitted to Centralized Call Center Notification ID: [id number] [facility] Referral #: Closed - Submit for [facility] Name: Hospital: [facility] Address: City: [place]: [place] Zip Code: Phone : [facility] Point of Contact: Name: Phone: Chief complaint: chest pain Primary Diagnosis: Disposition Discharged Date of discharge: Jun Discharge to home [place] records sent securely to [place] PCP and RNCM. Records sent to [facility] for expedited upload. [facility] alerted via ECR Tool for eligibility review. No further records available. Alerting PCP team to this note for continuity of care. /jeff RAMOS RN REGISTERED NURSE Signed: 06/19/2024 12:32 Receipt Acknowledged By: 06/19/2024 16:44 /day/ BRENDAN ALGUERRE, [facility] NURSE PRACTITIONER 06/19/2024 12:39 /day/ ARNOLD PEDROZA RN MSN REGISTERED NURSE COLBY HERNANDEZ [facility] Jun 16, 2024 12:28 PM NONVA NOTE: LOCAL TITLE: [facility]UNITY [facility] SELF PRESENTING CARE COORD PLAN STANDARD TITLE: NONVA NOTE DATE OF NOTE: JUN 16, 2024@12:28 ENTRY DATE: JUN 19, 2024@12:28:44 AUTHOR: JOSSUE LIMON EXP COSIGNER: URGENCY: STATUS: COMPLETED [facility]UNITY CARE-[facility] SELF PRESENTING CARE COORD PLAN 657 [address] Has ADDENDA Emergency Notification Intake Date Presenting to the Facility: Jun Method of Contact: Submitted to Centralized Call Center Notification ID: [id number] [facility] Referral #: Closed - Submit for [facility] Name: Hospital: [facility] Address: City: [place]: [place] Zip Code: Phone : [facility] Point of Contact: Name: Phone: Chief complaint: chest pain Primary Diagnosis: Disposition Discharged Date of discharge: Jun Discharge to home [place] records sent securely to [place] PCP and RNCM. Records sent to [facility] for expedited upload. [facility] alerted via ECR Tool for eligibility review. No further records available. Alerting PCP team to this note for continuity of care. /jeff DICKEYN RN REGISTERED NURSE Signed: 06/19/2024 12:32 Receipt Acknowledged By: 06/19/2024 16:44 /day/ BRENDAN LAGUERRE, LIZET NURSE PRACTITIONER 06/19/2024 12:39 /day/ ARNOLD PEDROZA RN MSN REGISTERED NURSE 06/19/2024 ADDENDUM STATUS: COMPLETED Alerting RNCM, please assist with obtaining hospital summary /day/ BRENDAN LAGUERRE, LIZET NURSE PRACTITIONER Signed: 06/19/2024 16:45 Receipt Acknowledged By: * AWAITING SIGNATURE * ARNOLD PEDROZA SHAME[place] N [facility]
--- OUTSIDE RECORDS SUMMARY | 2024-09-01 12:56 | XMS_ITS | Encounter Summary ---
Author Name [facility] [place] Organization [facility] [place] Address [address] [place] [address] Care Team Providers Care Glass Blower Name Role Phone COLBY HERNANDEZ Primary Care [...] Name Patient's Relationship to Policy Mullen [facility] (WNR) MEDICARE ADVANTAGE [facility] (WNR) Jun 05, 2022 [id number] Robel CARBALLO PATIENT [facility] (WNR) MEDICARE ADVANTAGE [facility] (WNR) Jun 05, 2022 [id number] Robel CARBALLO PATIENT [facility] (WNR) MEDICARE ADVANTAGE [facility] (WNR) Jun 05, 2022 [id number] Robel CARBALLO PATIENT Selected Encounter This section includes the information on record at [place] for the Encounter. Date/Time Encounter Type Encounter Description Reason Pro vider Source Sep 12, 2023 03:32 PM Outpatient Encounter PRIMARY CARE/MEDICINE [facility] Encounter Template Text not used by [place] Plan of Treatment: Future Appointments (+ 6 months) and Future Tests (+/- 45 days) The Plan of Treatment section includes future care activities for the patient from all [place] treatment[place]ilities. This section includes future appointments and future orders which are active, pending or scheduled. Future Appointments This section includes appointments that were scheduled to occur 6 months from the date of the Encounter, up to a maximum of 20 appointments. The data comes from all [facility]. Appointment Date/Time Appointment Type Appointme nt Facility Name October 05, 2023 01:30 PM AMBULATORY - SURGERY [facility] October 11, 2023 09:00 AM AMBULATORY - MEDICINE [facility] October 11, 2023 09:45 AM AMBULATORY - MEDICINE [facility] November 02, 2023 01:00 PM AMBULATORY - MEDICINE [facility] Nov 10, 2023 10:30 AM AMBULATORY - NONE [facility] Nov 13, 2023 10:00 AM AMBULATORY - NONE [facility] Jan 08, 2024 08:30 PM AMBULATORY - MEDICINE [facility] Jan 12, 2024 11:40 AM AMBULATORY - MEDICINE [facility] Jan 12, 2024 01:00 PM AMBULATORY - MEDICINE [facility] Feb 07, 2024 10:30 AM AMBULATORY - MEDICINE [facility] Feb 27, 2024 09:30 AM AMBULATORY - MEDICINE [facility] Feb 27, 2024 10:30 AM AMBULATORY - NONE [facility] Active, Pending, and Scheduled Orders This section includes a listing of several types of active, pending, and scheduled orders, including clinic medications orders, diagnostic test orders, procedure orders and consult orders; where the start date of the order is 45 days before the date of the Encounter or 45 days after the date of theEncounter. The data comes from all [facility]. Test Date/Time Test Type Test Details Facility Name October 05, 2023 02:23 PM Consult Order VASCULAR L AB FUTURE CARE STL Cons [facility] Lab Results: +/- 30 days of the encounter This section includes the Chemistry and Hematology Lab Results on record with [place] for the patient. Radiology Reports and Pathology Reports are provided separately, in subsequent sections. Lab Results This section contains the Chemistry/Hematology Results that were resulted 30 days before or 30 daysafter the date of the Encounter. Date/Time Source Result Type Result - Unit Interpretation Reference Range Comment Sep 05, 2023 08:05 AM [facility] LIPID PANEL (STL) Specimen Type: PLASMA Comment: No hemolysis noted. Ordering Provider: MELISSA HERNANDEZ Report Released Date/Time: Sep 04, 2023 01:28 PM Reporting Lab: [facility] [address] [facility] [address] Performing Lab: [address] [address] CHOLESTEROL 162 mg/dL 0-200 TRIGLYCERIDE 107 mg/dL 0-150 CALCULATED LDL 106 mg/dL HDL(New) 35 mg/dL L >40 Sep 05, 2023 08:05 AM [facility] COMPREHENSIVE METABOLIC PANEL Specimen Type: PLASMA Comment: No hemolysis noted. Ordering Provider: MELISSA HERNANDEZ Report Released Date/Time: Sep 04, 2023 01:28 PM Reporting Lab: [facility] [address] [facility] [address] Performing Lab: [facility] [address] CREATININE 0.77 mg/dL 0.7-1.3 UREA NITROGEN 9.8 mg/dL 9.0-25.0 GLUCOSE 93 mg/dL 72-99 SODIUM 140 meq/L 136-145 POTASSIUM 4.0 meq/L 3.5-5 CHLORIDE 104 meq/L 98-107 CARBON DIOXIDE 29 meq/L 22-31 CALCIUM 9.5 mg/dL 8.4-10.4 PROTEIN 7.6 g/dL 6-8.6 ALBUMIN 4.0 g/dL 3.4-5 TOTAL BILIRUBIN 0.4 mg/dL 0.2-1.2 ALKALINE PHOSPHATASE 78 U/L 40-150 AST/SGOT 20 U/L 5-34 ALT/SGPT 14 U/L 8-40 EGFR (CKD-EPI 2020) 93.4 >60 Sep 05, 2023 08:05 AM [facility] HGA1C Specimen Type: BLOOD No comment entered. Ordering Provider: MELISSA HERNANDEZ Report Released Date/Time: Sep 04, 2023 01:28 PM Reporting Lab: [facility] [address] [place] [phone] Performing Lab: [address] [address] HGA1C 6.7 H 4.0-6.0 Sep 05, 2023 08:05 AM [facility] PROST. SPECIFIC AG.(PB-STL) Specimen Type: SERUM Comment: The listed sex of this patient may not be a typical indication for this test. Therefore, reference ranges or interpretive criteria listed may not be valid. Clinical correlation suggested. Ordering Provider: MELISSA HERNANDEZ Report Released Date/Time: Sep 04, 2023 01:28 PM Reporting Lab: [address] [address] Performing Lab: [address] [address] PROST. SPECIFIC AG.(PB-STL) <0.100 ng/mL 0-4 Sep 05, 2023 08:05 AM [facility] TSH PANEL (STL) Specimen Type: PLASMA Comment: No hemolysis noted. Ordering Provider: MELISSA HERNANDEZ Report Released Date/Time: Sep 04, 2023 01:28 PM Reporting Lab: [address] [address] Performing Lab: [address] [address] TSH 0.021 u[IU]/mL L 0.47-5 FREE T4(REFLEX) 1.14 ng/mL 0.7-1.48 Sep 05, 2023 08:05 AM [facility] CBC Specimen Type: BLOOD No comment entered. Ordering Provider: MELISSA HERNANDEZ Report Released Date/Time: Sep 04, 2023 01:28 PM Reporting Lab: [address] [address] Performing Lab: [address] [address] WBC 6.0 10*3/uL 3.6-11.2 RBC 5.33 10*6/uL 4.10-5.70 HGB 15.0 g/dL 13.1-16.8 HCT 47.6 38.2-48.4 MCV 89.3 fL 80.0-100.0 MCH 28.1 pg 27.0-34.0 MCHC 31.5 g/dL L 33.0-36.0 PLT 274 10*3/uL 150-400 MPV 9.2 fL 7.5-11.2 RDW 14.9 11.8-15.1 LYMPHOCYTES, AUTO % 27 MONOCYTES, AUTO % 7 NEUTROPHILS, AUTO % 48 EOSINOPHILS, AUTO % 17 BASOPHILS, AUTO % 1 LYMPHOCYTES, ABSOLUTE 1.60 10*3/uL 0.77-4.50 MONOCYTES, ABSOLUTE 0.44 10*3/uL 0.19-0.80 NEUTROPHILS, ABSOLUTE 2.88 10*3/uL 2.10-8.00 EOSINOPHILS, ABSOLUTE 1.01 10*3/uL H 0.00-0.60 BASOPHILS, ABSOLUTE 0.05 10*3/uL 0.00-0.20 Sep 05, 2023 08:05 AM [facility] VITAMIN D, 25-HYDROXY Specimen Type: SERUM No comment entered. Ordering Provider: MELISSA HERNANDEZ Report Released Date/Time: Sep 04, 2023 01:28 PM Reporting Lab: [facility] [address] [place] [phone] Performing Lab: [address] [address] VITAMIN D, 25-HYDROXY 20.1 ng/mL L 30-96 Sep 05, 2023 08:05 AM [facility] MICRAL/CREAT PROFILE (STL) Specimen Type: URINE No comment entered. Ordering Provider: MELISSA HERNANDEZ Report Released Date/Time: Sep 04, 2023 01:28 PM Reporting Lab: [facility] [address] [place] [phone] Performing Lab: [address] [address] URINE ALBUMIN (PB-STL) 20.4 mg/L uACR (STL) 23 mg/g 0-29 CREATININE URINE/OTHERS 88.4 mg/dL 63-166 Social History: Smoking Status (Most current) and Tobacco Use (All prior to encounter date) This section includes the most current, and the historical, smoking and tobacco- related health factors from the [place] facility where the Encounter took place. Current Smoking Status This section includes the most current smoking, or tobacco-related health factor, from the [place] facility where the Encounter took place. Date/Time Current Smoking Status Comment Facil ity Jul 28, 2023 10:00 AM VA-TOBACCO QUIT 15 YRS OR MORE [facility] Tobacco Use History This section includes a history of the smoking, or tobacco-related health factors, that were collected on or before the date of the Encounter. The data comes from the [place] facility where the Encounter took place. Date/Time Smoking Status/Tobacco Use Comment F acility Jul 28, 2023 10:00 AM VA-TOBACCO QUIT 15 YRS OR MORE [facility] Jul 29, 2022 01:00 PM VA-TOBACCO DOESNT USE WI 30 MIN WAKEUP [facility] Jul 29, 2022 01:00 PM VA-TOBACCO USE 30 YEARS OR MORE [facility] Jul 29, 2022 01:00 PM VA-TOBACCO USE ADVICE [facility] Jul 29, 2022 01:00 PM VA-TOBACCO USE CUPOLA CHARGER NO [facility] Jul 29, 2022 01:00 PM VA-TOBACCO USE MED NO [facility] Jul 29, 2022 01:00 PM VA-TOBACCO USER EVERY DAY [facility] Radiology Reports: +/- 30 days of the [...] the Encounter. The data comes from all [place] treatment facilities. Date/Time Radiology Report Provider Source October 11, 2023 10:54 AM CHEST X-RAY, 2 VIE WS: PATRICK CARBALLO [id number] -[id number] M Exm Date: OCTOBER 11, 2023@10:54 Req Phys: ADRIANNE ROCHA Pat Loc: [facility]-PULMONARY CONSULT (Req'g Lo Img Loc: [facility]-MAIN RADIOLOGY SUITE Service: Unknown [facility], [address] [place] [address] (Case [id number] COMPLETE) CHEST X-RAY, 2 VIEWS (RAD Detailed) CPT:69135 Reason for Study: recent PNA in jul Clinical History: follow up from R sided upper middle lower lobe Report Status: Verified Date Reported: OCTOBER 11, 2023 Date Verified: OCTOBER 11, 2023 Industrial Education Teacher E-Sig:/ELKE/ZAHRA BRAMBILA MD Report: Case #[id number]. Chest examination. Finding: PA and lateral views of the chest examination shows left pleural effusion and left lower lobe atelectasis. No evidence of cardiomegaly. Aortic shadow is unremarkable. Trachea is in the midline. Calcified right hilar lymph nodes noted. The right costophrenic angle is obliterated suggestive of small right pleural effusion or pleural thickening. No pneumothorax. Impression: Left pleural effusion and left lower lobe atelectasis. Small right pleural effusion or pleural thickening. Calcified right hilar lymph node. No evidence of consolidation. Primary Interpreting Staff: ZAHRA BRAMBILA MD, Staff Physician - Radiologist (Industrial Education Teacher) /ZAHRA PEGUERO [facility] Encounter Notes: All associated encounter notes This section contains the clinical notes associated to the Encounter. Date/Time Encounter Note(s) Provider Source Sep 12, 2023 03:32 PM ADMINISTRATIVE NOT E: LOCAL TITLE: ADMINISTRATIVE STL STANDARD TITLE: ADMINISTRATIVE NOTE DATE OF NOTE: SEP 12, 2023@15:32 ENTRY DATE: SEP 12, 2023@15:34:29 AUTHOR: HENRIQUE ADAM EXP COSIGNER: URGENCY: STATUS: COMPLETED RNCM received call from Vet stating he was returning PCP Josias's phone call. Vet requesting Midodrine 10mg TID and Pantoprazole 40mg once a day and Furosemide 40mg once a day from [place] [facility]. /elke/ HENRIQUE ADAM REGISTERED NURSE, MEDICAL/SURGERY REGISTERED NURSE Signed: 09/12/2023 15:57 Receipt Acknowledged By: 09/12/2023 18:00 /elke/ COLBY HERNANDEZ, MSN, AGNP-C NURSE PRACTITIONER HENRIQUE ADAM [facility]
--- OUTSIDE RECORDS SUMMARY | 2024-09-01 12:56 | XMS_ITS | Encounter Summary ---
Author Name [facility] [place] [facility] [place] Address [address] [place] [address] Care Team Providers Care Oil And Gas Specialist Name Role Phone COLBY FERRARA Primary Care Provider Unavail le Insurance Providers: All historical and current [...] Mullen's Name Patient's Relationship to Policy Mullen [facility] (WNR) MEDICARE ADVANTAGE MCR (WNR) Jun 05, 2022 [id number] Robel CARBALLO PATIENT [facility] (WNR) MEDICARE ADVANTAGE MCR (WNR) Jun 05, 2022 [id number] Robel CARBALLO PATIENT [facility] (WNR) MEDICARE ADVANTAGE MCR (WNR) Jun 05, 2022 [id number] Robel CARBALLO PATIENT Selected Encounter This section includes the information on record at [place] for the Encounter. Date/Time Encounter Type Encounter Description Reason Provider Source May 07, 2024 10:00 AM OFF/OP CNSLTJ NEW/EST LOW 30 PULMONARY/CHEST ICD-10-CM J44.89 Other specified chronic obstructive pulmonary disease TIFFANY MANCERA Encounter Template Text not used by [facility] Assessments - Encounter Diagnoses This section includes the primary and secondary diagnoses documented for the Encounter. Date/Time Primary/Secondary Diagnosis Diagnosis Name Provider Source May 07, 2024 10:38 AM PRIMARY Other specified chronic obstructive pulmonary disease [facility] May 07, 2024 10:38 AM SECONDARY Counseling, unspecified [facility] May 07, 2024 10:38 AM SECONDARY Encntr screen for malignant neoplasm of respiratory organs [facility] May 07, 2024 10:38 AM SECONDARY Essential (primary) hypertension [facility] Plan of Treatment: Future Appointments (+ 6 months) and Future Tests (+/- 45 days) The Plan of Treatment section includes [facility] care [facility] for the [facility] [place] [facility] This section includes future appointments and future orders which are active, pending or scheduled. Future Appointments This section includes appointments that were scheduled to occur 6 months from the date of the Encounter, up to a maximum of 20 appointments. The data comes from all [place] treatment facilities. Appointment Date/Time Appointment Type Appointme nt Facility Name Jun 21, 2024 10:00 AM AMBULATORY - MEDICINE [facility] Jul 03, 2024 01:00 PM AMBULATORY - MEDICINE [facility] Jul 23, 2024 10:00 AM AMBULATORY - MEDICINE [facility] Aug 05, 2024 10:00 AM AMBULATORY - MEDICINE [facility] Aug 06, 2024 09:00 AM AMBULATORY - REHAB MEDICIN E [facility] Aug 14, 2024 10:00 AM AMBULATORY - MEDICINE [facility] Aug 15, 2024 11:00 AM AMBULATORY - REHAB [facility]ICIN E [facility] Aug 15, 2024 01:00 PM AMBULATORY - REHAB MEDICIN E [facility] Aug 15, 2024 02:00 PM AMBULATORY - NONE [facility] Aug 20, 2024 01:00 PM AMBULATORY [facility] Aug 20, 2024 02:00 PM AMBULATORY - REHAB MEDICIN E [facility] Aug 22, 2024 01:00 PM AMBULATORY - REHAB MEDICIN E [facility] Aug 22, 2024 02:00 PM AMBULATORY - PSYCHIATRY [facility] Aug 27, 2024 01:00 PM AMBULATORY - REHAB MEDICIN E [facility] Aug 29, 2024 01:00 PM AMBULATORY - REHAB [facility] Aug 29, 2024 02:00 PM AMBULATORY - NONE [facility] Sep 03, 2024 01:00 PM AMBULATORY - REHAB MEDICIN E [facility] Sep 03, 2024 02:00 PM AMBULATORY - RE[facility]AB [facility] Sep 05, 2024 01:00 PM AMBULATORY - REHAB MEDICIN E [facility] Sep 05, 2024 02:00 PM AMBULATORY - PSYCHIATRY [facility] Vital Signs: All taken on the encounter date This section contains inpatient and outpatient Vital Signs collected on the date of the Encounter. Date/Time Temperature Pulse Blood Pressure Respiratory Rate SP02 Pain Height Weight Body Mass Index Source May 07, 2024 09:52 AM 98 82 175/84 20 96 0 73 205.3 27 [facility] Social History: Smoking Status (Most current) and Tobacco Use (All prior to encounter date) This section includes the most current, and the historical, smoking and tobacco- related health factors from the [place] facility where the Encounter took place. Current Smoking Status This section includes the most current smoking, or tobacco-related health factor, from the [place] facility where the Encounter took place. Date/Time Current Smoking Status Comment Facil ity Apr 26, 2024 10:30 AM VA-TOBACCO USE FOR FILI CIGARETTES [facility] Tobacco Use History This section includes a history of the smoking, or tobacco-related health factors, that were collected on or before the date of the Encounter. The data comes from the [place] facility where the Encounter took place. Date/Time Smoking Status/Tobacco Use Comment F acility Apr 26, 2024 10:30 AM VA-TOBACCO USE FOR FILI CIGARETTES [facility] Encounter Notes: All associated encounter notes This section contains the clinical notes associated to the Encounter. Date/Time Encounter Note(s) Provider Source May 07, 2024 08:42 AM CONSULT: LOCAL TITLE: LUNG CANCER SCREENING CONSULT [facility] STANDARD TITLE: CONSULT DATE OF NOTE: MAY 07, 2024@08:42 ENTRY DATE: MAY 07, 2024@08:43:05 AUTHOR: TIFFANY MANCERA COSIGNER: URGENCY: STATUS: COMPLETED LUNG CANCER SCREENING OUTPATIENT CLINIC NOTE Date of note: 05/07/2024 Reason for visit: Lung Cancer Screening History and Physical: Mr. Carballo is a 73 y/o with PMH which includes severe COPD, on supplemental oxygen, and managed on Wixela, spiriva and prn albuterol. He was admitted to the hospital in 08/2023 for hypoxic respiratroy failure in the setting of HFpEF and PNA. He underwent thora on 11/02/2023 for persistent L exudative pleural effusion. His other h/o includes HFpEF, carotid stenosis, s/p CEA in 2011, DM2, h/o prostate cancer, GERD, glaucoma, Vit D deficiency and YANNA. LDCT was ordered by PCP and was done on 11/10/2023 and showed bilateral lower lobe infiltrate/consolidation with moderate pleural effusion and patchy MILVIA infiltrate or scarring. CT of chest with contrast was recommended. There is no CT of chest noted in CPRS. 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 6MWT - 10/11/2023: Patient was satting 87% on RA at rest. Required 3L (continuous) to sat 92% at rest. He walked 500 ft in 6 mins on 4L NC with a mariah of 90%. He needs 3L at rest and 4L with exertion. arrives to lung cancer screening clinic this a.m. for discussion about enrollment in the program. Upon arrival, I note his BP is elevated in the 175/84 range, after he sat for 10 min repeat BP 158/90 on R arm taken by me. He is not checking his pressures at home. He also tells me that 2 days ago, he awoke with a band of pain around his chest . He denies other symptoms including SOB, LH/dizziness, N/V. He fell back to sleep and when he woke up it was gone. He has not had it since. He arrives on oxygen 3L per BOBBIN DOFFER with O2 sats 96%. He can accomplish ADL's with pause. He has not been using prn albuterol since hospital discharge in August,, but using other inhalers as directed. He reports stable respiratory symptoms currently. He has a chronic cough, productive of white-roland sputum, worse in the a.m. He denies hemoptysis, unintentional weight loss or night sweats. He is getting use to his CPAP machine. 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, sober for 3 yrs Covid 19: UTD Flu Vaccine: UTD ~~~~~~~~~~~~~~~~~~~~~~~~~~~~ ~~~~~~~~~~~~~~~~~~~~~~~~~~ Past Medical History: 1) HTN - Hypertension ([facility] [id number]) 2) GERD - Gastro-Esophageal Reflux Disease ([facility] [id number]) 3) Constipation ([facility] [id number]) 4) Prostate cancer comment: s/p prostatectomy 2021 5) Chronic obstructive lung disease 6) Carotid Artery Stenosis ([facility] [id number]) 7) Glaucoma 8) Prediabetes 9) Vitamin D Deficiency ([facility] [id number]) 10) Exposure to potentially hazardous substance 11) Obstructive Sleep Apnea of Adult ([facility] [id number]) 12) Chronic diastolic heart failure ~~~~~~~~~~~~~~~~~~~~~~~~~~~~ ~~~~~~~~~~~~~~~~~~~~~~~~~~ Current Medication: Active Outpatient Medications (including Supplies): ACCU-CHEK GUIDE (GLUCOSE) TEST STRIP USE 1 STRIP FOR BLOOD ACTIVE TEST DIRECTED *DIAGNOSIS, 50 STRIPS PER YEAR Sep ALBUTEROL 90MCG (CFC-F) 200D ORAL INHL INHALE 2 PUFFS BY ACTIVE ORAL INHALATION FOUR TIMES A DAY NEEDED FOR COPD SHAKE WELL. RINSE MOUTHPIECE FREQUENTLY TO PREVENT CLOGGING. ALCOHOL PREP PAD USE/APPLY PAD TO AFFECTED AREA(S) ONCE A ACTIVE DAY NEEDED FOR SKIN CLEANSING AZELASTINE 137MCG/SPRAY 200D NASAL INHL SPRAY 1 SPRAY IN ACTIVE NOSTRIL(S) TWICE A DAY FOR ALLERGIC RHINITIS *PRIME BEFORE USE* CHOLECALCIF 50MCG (D3-2,000UNIT) TAB TAKE ONE TABLET BY ACTIVE (S) MOUTH ONCE A DAY FOR VITAMIN D DEFICIENCY EMPAGLIFLOZIN 25MG TAB TAKE ONE-HALF TABLET BY MOUTH ONCE ACTIVE A DAY FOR DIABETES FLUTICAS 250/SALMETEROL 50 INHL DISK 60 INHALE 1 ACTIVE INHALATION ORAL INHALATION TWICE A DAY FOR COPD (OPEN DISKUS; CLICK ONLY ONCE; MAY INHALE TWICE TO COMPLETE DOSE; CLOSE WHEN FINISHED) RINSE MOUTH AND SPIT AFTER EACH USE. FLUTICASONE PROP 50MCG 120D NASAL INHL INSTILL 1 SPRAY IN ACTIVE NOSTRIL(S) EVERY MORNING (MUST BE USED DIRECTED FOR MINIMUM OF 21 DAYS TO PROVIDE ADEQUATE BENEFITS) FUROSEMIDE 40MG TAB TAKE ONE TABLET BY MOUTH EVERY MORNING ACTIVE FOR FLUID RETENTION (EDEMA) PANTOPRAZOLE NA 40MG EC TAB TAKE ONE TABLET BY MOUTH EVERY ACTIVE MORNING BEFORE A MEAL TAKE 30 MINUTES BEFORE MEAL(S) ROSUVASTATIN CA 40MG TAB TAKE ONE-HALF TABLET BY MOUTH ACTIVE EVERY EVENING TIOTROPIUM 2.5MCG/ACTUAT 60D ORAL INHL INHALE 2 ACTIVE INHALATIONS ORAL INHALATION ONCE A DAY FOR COPD (ADMINISTER AT SAME TIME EACH DAY) Non-VA ALBUTEROL 90MCG (CFC-F) 200D ORAL INHL 1 PUFF BY ACTIVE ORAL INHALATION FOUR TIMES A DAY NEEDED Non-VA DOCUSATE NA 100MG CAP 100MG BY MOUTH TWICE A DAY ACTIVE Non-VA HYOSCYAMINE SULFATE 0.125MG TAB 0.125MG BY MOUTH ACTIVE Non-VA TIMOLOL MALEATE 0.5% OPH SOLN 1 DROP BOTH EYES ACTIVE TWICE A DAY All meds were reviewed with patient. ~~~~~~~~~~~~~~~~~~~~~~~~~~~~ ~~~~~~~~~~~~~~~~~~~~~~~~~~ Allergy: Patient has answered NKA ~~~~~~~~~~~~~~~~~~~~~~~~~~~~ ~~~~~~~~~~~~~~~~~~~~~~~~~~ Review of systems: 10 point review of systems reviewed and negative except per HPI. ~~~~~~~~~~~~~~~~~~~~~~~~~~~~ ~~~~~~~~~~~~~~~~~~~~~~~~~~ Physical Exam: Vitals: Temperature: 98.3 F [36.8 C] (04/26/2024 10:33) Pulse: 75 (04/26/2024 10:33) BP:138/96 (04/26/2024 10:33) Resp: 18 (04/26/2024 10:33) O2 Saturation: Measurement DT POx (L/MIN)(%) 04/26/2024 10:33 96[2][] 02/27/2024 09:28 93[2.0][] GENERAL APPEARANCE: Pleasant and cooperative, normal mood and affect, elderly male with oxygen supplementation, NAD HEENT: Exam grossly normal, conjunctivae clear, oropharynx showed moist mucosa without cyanosis NECK: Carotids were brisk without bruits. LUNGS: course breath sounds with BBC, no wheezing CARDIOVASCULAR: S1, S2 without pathologic murmur, neck veins were not visably elevated at 45 degrees. ABDOMEN: soft and nontender EXTREMITIES AND MUSCULOSKELETAL: trace lower extremity edema NEUROLOGICAL: Alert and oriented x 3, non-focal ~~~~~~~~~~~~~~~~~~~~~~~~~~~~ ~~~~~~~~~~~~~~~~~~~~~~~~~~ Diagnostic data: Labs: CBC: WBC 12.6 H 10*3/uL 11/02/2023 12:47 RBC 5.06 10*6/uL 11/02/2023 12:47 HGB 14.8 g/dL 11/02/2023 12:47 HCT 47.3 % 11/02/2023 12:47 MCV 93.5 fL 11/02/2023 12:47 MCH 29.2 pg 11/02/2023 12:47 MCHC 31.3 L g/dL 11/02/2023 12:47 RDW 15.0 % 11/02/2023 12:47 PLT 325 10*3/uL 11/02/2023 12:47 MPV 8.8 fL 11/02/2023 12:47 NEUTROPHILS, AUTO % 48 % 09/05/2023 08:05 LYMPHOCYTES, AUTO % 27 % 09/05/2023 08:05 MONOCYTES, AUTO % 7 % 09/05/2023 08:05 EOSINOPHILS, AUTO % 17 % 09/05/2023 08:05 BASOPHILS, AUTO % 1 % 09/05/2023 08:05 NEUTROPHILS, ABSOLUTE 2.88 10*3/uL 09/05/2023 08:05 LYMPHOCYTES, ABSOLUTE 1.60 10*3/uL 09/05/2023 08:05 MONOCYTES, ABSOLUTE 0.44 10*3/uL 09/05/2023 08:05 EOSINOPHILS, ABSOLUTE 1.01 H 10*3/uL 09/05/2023 08:05 BASOPHILS, ABSOLUTE 0.05 10*3/uL 09/05/2023 08:05 NEUTROPHILS 44.4 % 11/02/2023 12:47 LYMPHOCYTES 17.4 % 11/02/2023 12:47 MONOCYTES 1.7 % 11/02/2023 12:47 EOSINOPHILS 29.6 % 11/02/2023 12:47 BASOPHILS 1.7 % 11/02/2023 12:47 ATYPICAL LYMPHOCYTES 5.2 % 11/02/2023 12:47 BMP: SODIUM 140 mEq/L 11/02/2023 12:47 POTASSIUM 4.2 mEq/L 11/02/2023 12:47 Cl: 98 mEq/L (11/02/23 12:47) CARBON DIOXIDE 35 H mEq/L 11/02/2023 12:47 BUN: 10.1 mg/dL (11/02/23 12:47) CREATININE 0.93 mg/dL 11/02/2023 12:47 GLUCOSE 150 H mg/dL 11/02/2023 12:47 HFP: PROTEIN 8.3 g/dL 11/02/2023 12:47 ALBUMIN 4.2 g/dL 11/02/2023 12:47 TOTAL BILIRUBIN 0.4 mg/dL 11/02/2023 12:47 ALKALINE PHOSPHATASE 90 U/L 11/02/2023 12:47 AST/SGOT 15 U/L 11/02/2023 12:47 ALT/SGPT 10 U/L 11/02/2023 12:47 Imaging: CXR: Impression for CHEST X-RAY, 2 VIEWS, 01/12/24, case [id number] Residual left pleural effusion and left lower lobe atelectasis. Suggestive of for right pleural thickening versus small right pleural effusion. No consolidation or mass. Assessment and Plan: # Lung Cancer Screening: After shared decision making conversation, DOES NOT agree to lung cancer screening. He states that he would not want treatment or procedures done if an abnormality is found. We discussed the severity of his lung disease and the higher risk for consideration of procedures/treatment. He will continue to follow with PCP and pulmonary and understands the importance of reporting changes in his symptoms. I will alert SHARRON Escobar for f/u in regards to previous LDCT done 11/10/2023. This showed bilateral lower lobe infiltrate/consolidation with moderate pleural effusion and patchy MILVIA infiltrate or scarring. CT of chest with contrast was recommended. There is no CT of chest noted in CPRS. * Discussed potential benefits of lung cancer screening: - Reduce mortality from lung cancer - Screening looks for disease before you have symptoms. It can help find lung cancer in an earlier, more treatable stage. * Discussed potential harms of lung cancer screening: - Anxiety and stress from false-positive results - Complications from invasive procedures if an abnormality is found - The low-dose radiation from lung cancer screening increases your risk of developing cancer years later by a small amount. * Discussed possibility of overdiagnosis: - Potentially finding a lung cancer that would have never been a clinical problem * Discussed other issues: - Impact of comorbidities on screening: The benefit is reduced in patients in poor health - Patients' willingness and/or ability to undergo invasive diagnostic procedures/treatments should results warrant further follow-up. - Quitting smoking is the most important thing you can do to lower your chance of dying from a variety of disease, not just lung cancer. - Annual adherence to follow up scan, as not a one time scan # Tobacco Dependence: former smoker, quit smoking 04/2023, formerly smoking 1-2 ppd for 60 yrs o congratulated on smoking cessation and encouraged to live tobacco free life # HTN: uncontrolled, elevated readings at clinic today o I ordered a home BP monitor and instructed him on use. I will add PCP Colby Ferrara to this note regarding f/u. Also, please see my note above regarding random episode of chest pressure w/o recurrence. Thank you for your follow up. # Severe COPD on oxygen supplementation: followed by pulmonary and seen on 04/26/2024 o continue wixela, spiriva and prn albuterol o I will cc BOBBIN DOFFER Luz regarding his decision to not enter lung cancer screening program and f/u on previous LDCT. Thank you for collaboration. All patients are counseled on the risks of smoking at every visit including patients with no history of smoking in order to dissuade them from starting the use of tobacco products; former smokers to minimize recidivism of nicotine dependence; and current smokers in an effort to help them cease the use of nicotine products. Education provided on available smoking cessation treatments including OTC and/or prescription medications, and/or counseling. Where relevant [age between 50-60-years and history of smoking], we and/or the PCP will obtain an abdominal ultrasound to screen for the possibility of an abdominal aortic aneurysm and ABIs to screen for occult PAD. When completed, the results will be found in [facility]. # HEALTH PROMOTION/HEALTH MAINTENANCE & EDUCATION DISEASE: Discussed treatment options & counseled on exacerbating factors. # DIAGNOSTIC TESTING AND LABORATORY DATA: Pertinent labs and diagnostic tests (both normal and abnormal) are included above and were reviewed and discussed with the patient within 7-days of the test and during this visit. - DISEASE: Coordinated care; discussed treatment options, & counseled on exacerbating factors. - Encouraged participation in regular exercise program 3-5 days/week - Discussed at length about lifestyle modifications in regard to diet, exercise, and medication compliance. - Discussed importance of immunizations to prevent disease. The patient verbalized understanding of information regarding: labs, meds, and plans for care. Reinforcement is indicated. # MEDICATION RECONCILIATION: - All pulmonary medications were reconciled during the visit. - Other listed profile meds will continue as directed by the PCP (primary provider). Clinic follow up: prn Time spent: 35 min Thank you for allowing me to participate in this patient's care. Please don't hesitate to call with any questions or concerns. /day/ TIFFANY CARDONA, ANP- Adult Nurse Practitioner Signed: 05/07/2024 10:38 Receipt Acknowledged By: 05/07/2024 12:36 /es/ BRENDAN LAGUERRE, AGNP-C NURSE PRACTITIONER 05/07/2024 11:16 /day/ CALLIE NAIR PULMONARY ANP TIFFANY MANCERA [facility]
--- OUTSIDE RECORDS SUMMARY | 2024-09-01 12:56 | XMS_ITS | Encounter Summary ---
Author Name [facility] [place] [facility] [place] [facility] [place] Address [address] [place] [id number] Care Team Providers Care Gmat Tutor Name Role Phone COLBY HERNANDEZ Primary Care [...] Mullen's Name Patient's Relationship to Policy Mullen [facility] (WNR) MEDICARE ADVANTAGE MCR (WNR) Jun 05, 2022 [id number] Robel CARBALLO PATIENT [facility] (WNR) MEDICARE ADVANTAGE MCR (WNR) Jun 05, 2022 [id number] Robel CARBALLO PATIENT [facility] (WNR) MEDICARE ADVANTAGE MCR (WNR) Jun 05, 2022 [id number] Robel CARBALLO PATIENT Selected Encounter This section includes the information on record at [place] for the Encounter. 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 This section includes future appointments and future orders which are active, pending or scheduled. Future Appointments This section includes appointments that were scheduled to occur 6 months from the date of the Encounter, up to a maximum of 20 appointments. The data comes from all [facility]. Appointment Date/Time Appointment Type Appointme nt Facility Name Aug 22, 2024 01:00 PM AMBULATORY - REHAB MEDICIN E [facility] Aug 22, 2024 02:00 PM AMBULATORY - PSYCHIATRY [facility] Aug 27, 2024 01:00 PM AMBULATORY - REHAB MEDICIN E [facility] Aug 29, 2024 01:00 PM AMBULATORY - REHAB MEDICIN E [facility] Aug 29, 2024 02:00 PM AMBULATORY - NONE [facility] Sep 03, 2024 01:00 PM AMBULATORY - REHAB MEDICIN E [facility] Sep 03, 2024 02:00 PM AMBULATORY - REHAB MEDICIN E [facility] Sep 05, 2024 01:00 PM AMBULATORY - REHAB MEDICIN E [facility] Sep 05, 2024 02:00 PM AMBULATORY - PSYCHIATRY [facility] Sep 10, 2024 01:00 PM AMBULATORY - REHAB MEDICIN E [facility] Sep 12, 2024 01:00 PM AMBULATORY - REHAB MEDICIN E [facility] Sep 12, 2024 02:00 PM AMBULATORY - NONE [facility] Sep 17, 2024 01:00 PM AMBULATORY - REHAB MEDICIN E [facility] Sep 17, 2024 02:00 PM AMBULATORY - REHAB MEDICIN E [facility] Sep 19, 2024 01:00 PM AMBULATORY - REHAB MEDICIN E [facility] Sep 19, 2024 02:00 PM AMBULATORY - PSYCHIATRY [facility] Sep 24, 2024 01:00 PM AMBULATORY - REHAB MEDICIN E [facility] Sep 26, 2024 01:00 PM AMBULATORY - REHAB MEDICIN E [facility] Sep 26, 2024 02:00 PM AMBULATORY - NONE [facility] Oct 01, 2024 01:00 PM AMBULATORY - REHAB MEDICIN E [facility] Active, Pending, and Scheduled Orders This section includes a listing of several types of active, pending, and scheduled orders, including clinic medications orders, diagnostic test orders, procedure orders and consult orders; where the start date of the order is 45 days before the date of the Encounter or 45 days after the date of theEncounter. The data comes from all [place] treatment facilities. Test Date/Time Test Type Test Details Facility Name Aug 14, 2024 12:37 PM Consult Order ENDO THYRO ID DISEASE OUTPATIENT [facility] [employer] [facility] Lab Results: +/- 30 days of the encounter This section includes the Chemistry and Hematology Lab Results on record with [place] for the patient. Radiology Reports and Pathology Reports are provided separately, in subsequent sections. Lab Results This section contains the Chemistry/Hematology Results that were resulted 30 days before or 30 daysafter the date of the Encounter. Date/Time Source Result Type Result - Unit Interpretation Reference Range Comment Aug 14, 2024 05:53 PM [facility] RESPIRATORY PCR PANEL Specimen Type: NASOPHARYNX Comment: The FilmArray RP [...] the clinician evaluating the patient. Masoud TIPTON, ([id number]) Ordering Provider: COLBY HERNANDEZ Report Released Date/Time: Aug 14, 2024 10:22 AM Reporting Lab: [facility] [address] [phone] Performing Lab: [place] [address] [address] [phone] *Adenovirus (BF) Not Detected Not Detected *Coronavirus [...] Not Detected Aug 01, 2024 09:13 AM [facility] TOTAL T3 (STL-PB) Specimen Type: PLASMA No comment entered. Ordering Provider: COLYB HERNANDEZ Report Released Date/Time: Jul 30, 2024 01:22 PM Reporting Lab: [facility] [address] [phone] Performing Lab: [facility] [address] [address] TOTAL T3 (STL-PB) 119.24 ng/dL 58-159 Jul 23, 2024 11:16 AM [facility] MICRAL/CREAT PROFILE (STL) Specimen Type: URINE No comment entered. Ordering Provider: COBLY HERNANDEZ Report Released Date/Time: Jul 16, 2024 02:46 PM Reporting Lab: [facility] [address] [place] [phone] Performing Lab: [facility] [address] [place] [phone] URINE ALBUMIN (PB-STL) 6.3 mg/L uACR (STL) 19 mg/g 0-29 CREATININE URINE/OTHERS 33.7 mg/dL L 63-166 Jul 23, 2024 11:03 AM [facility] ALPHA-1 ANTITRYPSIN (STL-PB) Specimen Type: PLASMA No comment entered. Ordering Provider: INGRID IVLLARREAL Report Released Date/Time: Jul 23, 2024 10:40 AM Reporting Lab: [address] [address] Performing Lab: [address] [address] ALPHA-1 ANTITRYPSIN (STL-PB) 230 mg/dL H 84-200 Jul 23, 2024 11:03 AM [facility] LIPID PANEL (STL) Specimen Type: PLASMA Comment: No hemolysis noted. Ordering Provider: COLBY HERNANDEZ Report Released Date/Time: Jul 16, 2024 02:46 PM Reporting Lab: [address] [address] Performing Lab: [address] [address] CHOLESTEROL 94 mg/dL 0-200 TRIGLYCERIDE 112 mg/dL 0-150 CALCULATED LDL 40 mg/dL HDL(New) 32 mg/dL L >40 Jul 23, 2024 11:03 AM [facility] CB COMPREHENSIVE METABOLIC PANEL Specimen Type: PLASMA Comment: No hemolysis noted. Ordering Provider: COBLY HERNANDEZ Report Released Date/Time: Jul 16, 2024 02:46 PM Reporting Lab: [facility] [address] [place] [phone] Performing Lab: [address] [address] CREATININE 0.90 mg/dL 0.7-1.3 UREA NITROGEN 16.8 [...] 88.5 >60 Jul 23, 2024 11:03 AM [facility] HGA1C Specimen Type: BLOOD No comment entered. Ordering Provider: COLBY HERNANDEZ Report Released Date/Time: Jul 16, 2024 02:46 PM Reporting Lab: [address] [address] Performing Lab: [address] [address] HGA1C 6.2 H 4.0-6.0 Jul 23, 2024 11:03 AM [facility] TSH W/ REFLEX FT4 (STL) Specimen Type: PLASMA No comment entered. Ordering Provider: COLBY HERNANDEZ Report Released Date/Time: Jul 16, 2024 02:46 PM Reporting Lab: [address] [address] Performing Lab: [address] [address] TSH 0.052 u[IU]/mL L 0.47-5 FREE T4(REFLEX) 1.27 ng/mL 0.7-1.48 Jul 23, 2024 11:03 AM [facility] CBC Specimen Type: BLOOD No comment entered. Ordering Provider: COLBY HERNANDEZ Report Released Date/Time: Jul 16, 2024 02:46 PM Reporting Lab: [facility] [address] [address] Performing Lab: [facility] [address] [phone] WBC 8.4 10*3/uL 3.6-11.2 RBC 5.34 10*6/uL [...] NORMRBC Yes Jul 23, 2024 11:03 AM [facility] IMMUNOGLOBULIN E Specimen Type: SERUM Comment: Test Performed by [facility], [address] [place] [address] Bandar De La Garza M.D., Ph.D., Director of Laboratories , [place] [id number] Ordering Provider: INGRID VILLARREAL Report Released Date/Time: Jul 23, 2024 10:40 AM Reporting Lab: [facility] [address] [phone] Performing Lab: [address] IMMUNOGLOBULIN E 52 kU/L <=114 Vital Signs: All taken on the encounter date This section contains inpatient and outpatient Vital Signs collected on the date of the Encounter. Date/Time Temperature Pulse Blood Pressure Respiratory Rate SP02 Pain Height Weight Body Mass Index Source Aug 20, 2024 01:00 PM 64 147/71 95 [facility] Radiology Reports: +/- 30 days of the [...] the Encounter. The data comes from all [place] treatment facilities. Date/Time Radiology Report Provider Source Jul 23, 2024 10:46 AM CHEST X-RAY, 2 VIE WS: PATRICK CARBALLO [id number] -[id number] Ex Date: JUL 23, 2024@10:46 Req Phys: NIKO VILLARREAL Pat Loc: [facility] (Req'g Img Loc: [facility]MAIN RADIOLOGY SUITE Service: [address] [address] (Case [id number] COMPLETE) CHEST X-RAY, 2 VIEWS (RAD Detailed) CPT:42668 Reason for Study: pleural effusion Clinical History: hx of pleural effusion Report Status: Verified Date Reported: JUL 24, 2024 Date Verified: JUL 24, 2024 Cnc Service Technician E-Sig:/ES/HAYDER BOWMAN Report: CHEST X-RAY, 2 VIEWS COMPARISON: 01/12/2024. HISTORY: pleural effusion FINDINGS: Heart size unchanged. Hyperinflation and other chronic findings. There is no consolidating infiltrate, effusion or pneumothorax. Impression: No active lung disease. RR Primary Interpreting Staff: HAYDER BOWMAN Staff Physician (Cnc Service Technician) /HAYDER PATEL [facility] Encounter Notes: All associated encounter notes This section contains the clinical notes associated to the Encounter. Date/Time Encounter Note(s) Provider Source Aug 20, 2024 04:54 PM CARDIOPULMONARY REHABILITATION NOTE: LOCAL TITLE: CARP NURSE STL STANDARD TITLE: CARDIOPULMONARY REHABILITATION NOTE DATE OF NOTE: AUG 20, 2024@16:54 ENTRY DATE: AUG 20, 2024@16:54:20 AUTHOR: ANGELY LOVELL COSIGNER: URGENCY: STATUS: COMPLETED Ferney has been screened for Covid-19 like symptoms. Has NOT traveled outside of the local area since last CARP visit. Has not been Covid-19 swabbed since last CARP visit. Does NOT have any in the home diagnosed with Coronavirus Disease (COVID-19) No known exposure to any sick contacts. Good handwashing and hygiene was discussed with heightened concern for the COVID-19 virus. verbalized understanding. practiced social distancing by remaining 3 feet from other persons in clinic. --- Exercise and Education Referral From Dr. García Reason for Visit: COPD Problem List: 1) HTN - Hypertension ([facility] [id number]) 2) GERD - Gastro-Esophageal Reflux Disease ([facility] [id number]) 3) Constipation ([facility] [id number]) 4) Prostate cancer 5) Chronic obstructive lung disease 6) Carotid Artery Stenosis ([facility] [id number]) 7) Glaucoma 8) Prediabetes 9) Vitamin D Deficiency ([facility] [id number]) 10) Exposure to potentially hazardous substance 11) Obstructive Sleep Apnea of Adult ([facility] [id number]) 12) Chronic diastolic heart failure 13) CAD - Coronary Artery Disease ([facility] [id number]) Goals: *Improve Functional Capacity *Improve chronic disease state knowledge and self-care ability *Improve Health-Related Quality of Life Perceptions *Monitor/decrease episodes of chest discomfort *Decrease breathlessness *Maintain 02 saturation 90% or greater *Demonstrate ability to follow basic principles for safe exercise including DUGLAS Scale of Perceived Exertion. -- Ferney: Waiting room to exercise clinic. ((X))Ambulated ()Wheeled walker ()Cane ()Wheelchair ()Electric scooter to exercise clinic. Health Status Changes:(X) None Reported Took medications: ((X))Yes ()No Resting heart rate: 64 (08/20/2024 13:00) Resting blood pressure: 147/71 (08/20/2024 13:00) Oxygen saturation at rest: 95% (08/20/2024 13:00) Room Air 3L O2 pulsed (X)continuous Resting shortness of breath 1 -- Exercised 25 minutes riding a [employer] seated cross-sports athletic trainer on: level 1, at 60'-70's steps/minute Exercised minutes on the arm ergometer bike at rpms on level . Exercised minutes using a treadmill at mph, grade. Duglas scale of perceived exertion at maximum exercise: 12-13/20 Dyspnea 2-3/10 Maximum heart rate during exercise: 87 Maximum heart rate maintained for: () minutes ()N/A. Maximum blood pressure during exercise: 131/83 Oxygen saturation during exercise: 95% ()Room Air (3)L O2 ()pulsed ((X))continuous Participated in strength training using: (X)TheraBand's: ()Passive ((X))Yellow ()Red ()Green ()Blue ()Silver; DUGLAS 8-9/20 Dyspnea 1/10 Heart rate POST exercise: 68,59 Blood pressure POST exercise: 165/77, 158/72 Oxygen saturation POST exercise: 93,95% ()Room Air (3)L O2 ()pulsed ((X))continuous cardiac monitor rhythm:((X))Sinus Rhythm ()Sinus Tachycardia ()Sinus Bradycardia ()Paced ()Atrial Fibrilation ()A-flutter ((X))PVCs ()PACs ()RBBB ()LBBB ()Other:Frequent pvc's/Ventricular bigemeny Tolerated exercise: Well -- The following providers were present for this encounter and assisted in the EKG monitoring, vitals assessment and direct supervision of this patient: ((X))Angely Lovell ()Nabila Franz ()Khloe Interiano /day/ ANGELY LOVELL RN,BSN REGISTERED NURSE Signed: 08/20/2024 16:58 ANEGLY LOVELL [facility]
--- OUTSIDE RECORDS SUMMARY | 2024-09-01 12:56 | XMS_ITS | Encounter Summary ---
Author Name [facility] [place] Organization [facility] [place] [place] Address [address] [place] [id number] Care Team Providers Care Director Of Counseling Name Role Phone COLBY HERNANDEZ Primary Care [...] Mullen's Name Patient's Relationship to Policy Mullen [facility] (WNR) MEDICARE ADVANTAGE [facility] (WNR) Jun 05, 2022 [id number] HARIS,Robel SPARKS PATIENT [facility] (WNR) MEDICARE ADVANTAGE [facility] (WNR) Jun 05, 2022 [id number] HARIS,P AUHermes PATIENT [facility] (WNR) MEDICARE ADVANTAGE [facility] (WNR) Jun 05, 2022 [id number] HARIS,Robel SPARKS PATIENT Selected Encounter This section includes the information on record at [place] for the Encounter. Date/Time Encounter Type Encounter Description Reason Provider Source Aug 14, 2024 10:00 AM OFFICE O/P EST LOW 20 MIN PRIMARY CARE/MEDICINE ICD-10-CM I10 Essential (primary) hypertension MACRINA HERNANDEZ OR L KIM Encounter Template Text not used by [place] Assessments - Encounter Diagnoses This section includes the primary and secondary diagnoses documented for the Encounter. Date/Time Primary/Secondary Diagnosis Diagnosis Name Provider Source Aug 14, 2024 12:31 PM PRIMARY Essential (primary) hypertension MELISSA HERNANDEZ [facility] Aug 14, 2024 12:31 PM SECONDARY Athscl heart disease of [place] coronary artery w/o ang pctrs MELISSA HERNANDEZ [facility] Aug 14, 2024 12:31 PM SECONDARY Chronic diastolic (congestive) heart failure MELISSA HERNANDEZ [facility] Aug 14, 2024 12:31 PM SECONDARY Chronic obstructive pulmonary disease, unspecified MELISSA HERNANDEZ [facility] Aug 14, 2024 12:31 PM SECONDARY Constipation, unspecified MELISSA HERNANDEZ [facility] Aug 14, 2024 12:31 PM SECONDARY Gastro-esophageal reflux disease without esophagitis MELISSA HERNANDEZ [facility] Aug 14, 2024 12:31 PM SECONDARY Malignant neoplasm of prostate MELISSA HERNANDEZ [facility] Aug 14, 2024 12:31 PM SECONDARY Obstructive sleep apnea (adult) (pediatric) MELISSA HERNANDEZ [facility] Aug 14, 2024 12:31 PM SECONDARY Occlusion and stenosis of unspecified carotid artery MELISSA HERNANDEZ [facility] Aug 14, 2024 12:31 PM SECONDARY Prediabetes MELISSA HERNANDEZ [facility] Aug 14, 2024 12:31 PM SECONDARY Unspecified glaucoma MELISSA HERNANDEZ [facility] Aug 14, 2024 12:31 PM SECONDARY Vitamin D deficiency, unspecified MELISSA HERNANDEZ [facility] Plan of Treatment: Future Appointments (+ 6 months) and Future Tests (+/- 45 days) The Plan of Treatment section includes future care activities for the patient from all [place] treatmentfacilities. This section includes future appointments and future orders which are active, pending or scheduled. Future Appointments This section includes appointments that were scheduled to occur 6 months from the date of the Encounter, up to a maximum of 20 appointments. The data comes from all [place] treatment facilities. Appointment Date/Time Appointment Type Appointme nt Facility Name Aug 15, 2024 11:00 AM AMBULATORY - REHAB MEDICIN E [facility] Aug 15, 2024 01:00 PM AMBULATORY - REHAB MEDICIN E [facility] Aug 15, 2024 02:00 PM AMBULATORY - NONE [facility] Aug 20, 2024 01:00 PM AMBULATORY - REHAB MEDICIN E [facility] Aug 20, 2024 02:00 PM AMBULATORY - REHAB MEDICIN E [facility] Aug 22, 2024 01:00 PM AMBULATORY - REHAB MEDICIN E [facility] Aug 22, 2024 02:00 PM AMBULATORY - PSYCHIATRY [facility] Aug 27, 2024 01:00 PM AMBULATORY - REHAB MEDICIN E [facility] Aug 29, 2024 01:00 PM AMBULATORY - REHAB MEDICIN E [facility] Aug 29, 2024 02:00 PM AMBULATORY - NONE [facility] Sep 03, 2024 01:00 PM AMBULATORY - REHAB MEDICIN E [facility] Sep 03, 2024 02:00 PM AMBULATORY - REHAB MEDICIN E [facility] Sep 05, 2024 01:00 PM AMBULATORY - REHAB MEDICIN E [facility] Sep 05, 2024 02:00 PM AMBULATORY - PSYCHIATRY [facility] Sep 10, 2024 01:00 PM AMBULATORY - REHAB MEDICIN E [facility] Sep 12, 2024 01:00 PM AMBULATORY - REHAB MEDICIN E [facility] Sep 12, 2024 02:00 PM AMBULATORY - NONE [facility] Sep 17, 2024 01:00 PM AMBULATORY - REHAB MEDICIN E [facility] Sep 17, 2024 02:00 PM AMBULATORY - REHAB MEDICIN E [facility] Sep 19, 2024 01:00 PM AMBULATORY - REHAB MEDICIN E [facility] Active, Pending, and Scheduled Orders This section includes a listing of several types of active, pending, and scheduled orders, including clinic medications orders, diagnostic test orders, procedure orders and consult orders; where the start date of the order is 45 days before the date of the Encounter or 45 days after the date of theEncounter. The data comes from all [place] treatment facilities. Test Date/Time Test Type Test Details Facility Name Aug 14, 2024 12:37 PM Consult Order ENDO THYRO ID DISEASE OUTPATIENT [facility] [facility] [facility] Lab Results: +/- 30 days of the encounter This section includes the Chemistry and Hematology Lab Results on record with [place] for the patient. Radiology Reports and Pathology Reports are provided separately, in subsequent sections. Lab Results This section contains the Chemistry/Hematology Results that were resulted 30 days before or 30 daysafter the date of the Encounter. Date/Time Source Result Type Result - Unit Interpretation Reference Range Comment Aug 14, 2024 05:[address] [facility] RESPIRATORY PCR PANEL Specimen Type: NASOPHARYNX Comment: The [employer] RP Panel combines nested multiplex PCR and [...] the clinician evaluating the patient. Masoud TIPTON, (656) Ordering Provider: COLBY HERNANDEZ Report Released Date/Time: Aug 14, 2024 10:22 AM Reporting Lab: [facility] [address] [place] [address] Performing Lab: [facility] [address] [place] [address] *Adenovirus (BF) Not Detected Not Detected *Coronavirus [...] Not Detected Aug 01, 2024 09:13 AM [facility] TOTAL T3 (STL-PB) Specimen Type: PLASMA No comment entered. Ordering Provider: COLBY HERNANDEZ Report Released Date/Time: Jul 30, 2024 01:22 PM Reporting Lab: [address] [address] Performing Lab: [address] [address] TOTAL T3 (STL-PB) 119.24 ng/dL 58-159 Jul 23, 2024 11:16 AM [facility] MICRAL/CREAT PROFILE (STL) Specimen Type: URINE No comment entered. Ordering Provider: COLBY HERNANDEZ Report Released Date/Time: Jul 16, 2024 02:46 PM Reporting Lab: [address] [address] Performing Lab: [address] [address] URINE ALBUMIN (PB-STL) 6.3 mg/L uACR (STL) 19 mg/g 0-29 CREATININE URINE/OTHERS 33.7 mg/dL L 63-166 Jul 23, 2024 11:03 AM [facility] ALPHA-1 ANTITRYPSIN (STL-PB) Specimen Type: PLASMA No comment entered. Ordering Provider: INGRID VILLARREAL Report Released Date/Time: Jul 23, 2024 10:40 AM Reporting Lab: [address] [address] Performing Lab: [place] [address] [facility] [address] ALPHA-1 ANTITRYPSIN (STL-PB) 230 mg/dL H 84-200 Jul 23, 2024 11:03 AM [facility] LIPID PANEL (STL) Specimen Type: PLASMA Comment: No hemolysis noted. Ordering Provider: COLBY HERNANDEZ Report Released Date/Time: Jul 16, 2024 02:46 PM Reporting Lab: [address] [address] Performing Lab: [address] [address] CHOLESTEROL 94 mg/dL 0-200 TRIGLYCERIDE 112 mg/dL 0-150 CALCULATED LDL 40 mg/dL HDL(New) 32 mg/dL L >40 Jul 23, 2024 11:03 AM [facility] COMPREHENSIVE METABOLIC PANEL Specimen Type: PLASMA Comment: No hemolysis noted. Ordering Provider: COLBY HERNANDEZ Report Released Date/Time: Jul 16, 2024 02:46 PM Reporting Lab: [address] [address] Performing Lab: [address] [address] CREATININE 0.90 mg/dL 0.7-1.3 UREA NITROGEN 16.8 [...] 88.5 >60 Jul 23, 2024 11:03 AM [facility] HGA1C Specimen Type: BLOOD No comment entered. Ordering Provider: COLBY HERNANDEZ Report Released Date/Time: Jul 16, 2024 02:46 PM Reporting Lab: [place] [phone] Performing Lab: [place] [phone] HGA1C 6.2 H 4.0-6.0 Jul 23, 2024 11:03 AM [facility] TSH W/ REFLEX FT4 (STL) Specimen Type: PLASMA No comment entered. Ordering Provider: COLBY HERNANDEZ Report Released Date/Time: Jul 16, 2024 02:46 PM Reporting Lab: [place] [address] Performing Lab: [place] [address] TSH 0.052 u[IU]/mL L 0.47-5 FREE T4(REFLEX) 1.27 ng/mL 0.7-1.48 Jul 23, 2024 11:03 AM [facility] CBC Specimen Type: BLOOD No comment entered. Ordering Provider: COLBY HERNANDEZ Report Released Date/Time: Jul 16, 2024 02:46 PM Reporting Lab: [place] [phone] Performing Lab: [place] [phone] WBC 8.4 10*3/uL 3.6-11.2 RBC 5.34 10*6/uL [...] NORMRBC Yes Jul 23, 2024 11:03 AM [facility] IMMUNOGLOBULIN E Specimen Type: SERUM Comment: Test Performed by [employer], [employer] [facility], [address] [place], [place] Bandar De La Garza M.D., Ph.D., Director of Laboratories , [facility] [id number] Ordering Provider: INGRID VILLARREAL Report Released Date/Time: Jul 23, 2024 10:40 AM Reporting Lab: [facility] [address] [facility] [address] Performing Lab: [facility] [address] [facility] IMMUNOGLOBULIN E 52 kU/L <=114 Vital Signs: All taken on the encounter date This section contains inpatient and outpatient Vital Signs collected on the date of the Encounter. Date/Time Temperature Pulse Blood Pressure Respiratory Rate SP02 Pain Height Weight Body Mass Index Source Aug 14, 2024 09:53 AM 97.4 68 114/67 20 92 0 202 27 [facility] Social History: Smoking Status (Most current) and Tobacco Use (All prior to encounter date) This section includes the most current, and the historical, smoking and tobacco- related health factors from the [place] facility where the Encounter took place. Current Smoking Status This section includes the most current smoking, or tobacco-related health factor, from the [place] facility where the Encounter took place. Date/Time Current Smoking Status Comment Facil ity Jul 28, 2023 10:00 [facility] [address] [facility] Tobacco Use History This section includes a history of the smoking, or tobacco-related health factors, that were collected on or before the date of the Encounter. The data comes from the [place] facility where the Encounter took place. Date/Time Smoking Status/Tobacco Use Comment F acility Jul 28, 2023 10:00 AM [facility] QUIT 15 YRS OR MORE [facility] Jul 29, 2022 01:00 PM VA-TOBACCO DOESNT USE WI 30 MIN WAKEUP [facility] Jul 29, 2022 01:00 PM VA-TOBACCO USE 30 YEARS OR MORE [facility] Jul 29, 2022 01:00 PM VA-TOBACCO USE ADVICE [facility] Jul 29, 2022 01:00 PM VA-TOBACCO USE HEALTH TECHNICIAN HEARING NO [facility] Jul 29, 2022 01:00 PM VA-TOBACCO USE MED NO [facility] Jul 29, 2022 01:00 PM VA-TOBACCO USER EVERY DAY [facility] Radiology Reports: +/- 30 days of the [...] the Encounter. The data comes from all [place] treatment facilities. Date/Time Radiology Report Provider Source Jul 23, 2024 10:46 AM CHEST X-RAY, 2 VIE WS: [facility] [id number] -1948 [facility] Date: JUL 23, 2024@10:46 Req Phys: NIKO VILLARREAL Pat Loc: [facility]-PULMONARY DEMIDENKO (Req'g Img Loc: [facility]-MAIN RADIOLOGY SUITE Service: [address] [address] (Case [id number] COMPLETE) CHEST X-RAY, 2 VIEWS (RAD Detailed) CPT:72209 Reason for Study: pleural effusion Clinical History: hx of pleural effusion Report Status: Verified Date Reported: JUL 24, 2024 Date Verified: JUL 24, 2024 Embedded Software Programmer E-Sig:/ES/HAYDER BOWMAN Report: CHEST X-RAY, 2 VIEWS COMPARISON: 01/12/2024. HISTORY: pleural effusion FINDINGS: Heart size unchanged. Hyperinflation and other chronic findings. There is no consolidating infiltrate, effusion or pneumothorax. Impression: No active lung disease. RR Primary Interpreting Staff: HAYDER BOWMAN Staff Physician (Embedded Software Programmer) /HAYDER PATEL [facility] Encounter Notes: All associated encounter notes This section contains the clinical notes associated to the Encounter. Date/Time Encounter Note(s) Provider Source Aug 15, 2024 08:19 AM PHYSICIAN LETTERS: LOCAL TITLE: TEST RESULT GENERAL LETTER STL STANDARD TITLE: PHYSICIAN LETTERS DATE OF NOTE: AUG 15, 2024@08:19 ENTRY DATE: AUG 15, 2024@08:19:38 AUTHOR: COLBY HERNANDEZ EXP COSIGNER: URGENCY: STATUS: COMPLETED [facility] [address] [place] [address] AUG 15, 2024 [facility] [address] [place] [id number] Dear Mc Colon, I would like to update you on your recent test results. OTHER TEST RESULTS RESPIRATORY PCR PANEL SWAB-NASOPHARYNX SP LB #[id number] Collection time: Aug 14, 2024@17:53 Test Name Result Units Range --------- ------ ----- ----- PARAINF1 Not Detected Ref: Not Detected *Coronavirus HKU1 (BF) Not Detected Ref: Not Detected *Coronavirus NL63 (BF) Not Detected Ref: Not Detected *Coronavirus 229E (BF) Not Detected Ref: Not Detected PARAINF2 Not Detected Ref: Not Detected *Coronavirus OC43 (BF) Not Detected Ref: Not Detected PARAINF3 Not Detected Ref: Not Detected PARAINF4 Not Detected Ref: Not Detected BPERT BF Not Detected Ref: Not Detected BPARAPERT Not Detected Ref: Not Detected Chlam pneumo (BF) Not Detected Ref: Not Detected Mycoplasma pneumo Not Detected Ref: Not Detected *Adenovirus (BF) Not Detected Ref: Not Detected H. Metapneumovirus Not Detected Ref: Not Detected H. Rhino/Enterovirus Not Detected Ref: Not Detected *Influenza A (BF) Not Detected Ref: Not Detected *Influenza B (BF) Not Detected Ref: Not Detected Resp Sync Virus (BF) Not Detected Ref: Not Detected COVID-19 (BIOFIRE) Not Detected Ref: Not Detected PLAN Please continue your treatment as we discussed during your visit. If you have any questions please call your nurse case management. I look forward to seeing you at your next clinic appointment. Thank you for choosing the [facility] for your healthcare. FUTURE APPOINTMENTS: 08/15/2024 11:00 [facility]PHYSICAL THERAPY 6A CA 08/15/2024 13:00 [facility]CARDIO PULM REHAB 08/15/2024 14:00 [facility]-PHARM CARDIO PULM GROU 08/20/2024 13:00 [facility]CARDIO PULM REHAB 08/20/2024 14:00 [facility]-CARDIO PULM REHAB ED 08/22/2024 13:00 [facility]CARDIO PULM REHAB 08/22/2024 14:00 [facility]-BH IBC GRP CARP SULSER 08/27/2024 13:00 [facility]CARDIO PULM REHAB 08/29/2024 13:00 [facility]CARDIO PULM REHAB 08/29/2024 14:00 [facility]-PHARM CARDIO PULM GROU 09/03/2024 13:00 [facility]CARDIO PULM REHAB 09/03/2024 14:00 [facility]CARDIO PULM REHAB ED 09/05/2024 13:00 [facility]CARDIO PULM REHAB 09/05/2024 14:00 [facility]BH IBC GRP CARP SULSER 09/10/2024 13:00 [facility]CARDIO PULM REHAB 09/12/2024 13:00 [facility]CARDIO PULM REHAB 09/12/2024 14:00 [facility]PHARM CARDIO PULM GROU 09/17/2024 13:00 [facility]CARDIO PULM REHAB 09/17/2024 14:00 [facility]CARDIO PULM REHAB ED 09/19/2024 13:00 [facility]CARDIO PULM REHAB 09/19/2024 14:00 [facility]BH IBC GRP CARP SULSER 09/24/2024 13:00 [facility]CARDIO PULM REHAB 09/26/2024 13:00 [facility]CARDIO PULM REHAB 09/26/2024 14:00 [facility]-PHARM CARDIO PULM GROU 10/01/2024 13:00 [facility]CARDIO PULM REHAB 10/03/2024 09:00 [facility]-CARD PULM REHAB HW GRP 10/03/2024 12:00 [facility]-VASCULAR LAB 10/03/2024 13:00 [facility]-VASCULAR SURG II 10/08/2024 13:00 [facility]CARDIO PULM REHAB 10/10/2024 13:00 [facility]CARDIO PULM REHAB 10/15/2024 13:00 [facility]CARDIO PULM REHAB 10/17/2024 13:00 [facility]CARDIO PULM REHAB 01/01/2025 12:00 [facility]-CARDIOLOGY OU 01/01/2025 13:00 [facility]-PULMONARY DEMIDENKO 02/11/2025 10:00 [facility] PACT 7 PCP Sincerely, COLBY HERNANDEZ, BRENDAN, AGNP-C NURSE PRACTITIONER [facility] L [facility] Aug 14, 2024 12:33 PM ADDENDUM: LOCAL TITLE: Addendum STANDARD TITLE: ADDENDUM DATE OF NOTE: AUG 14, 2024@12:33:39 ENTRY DATE: AUG 14, 2024@12:33:39 AUTHOR: COLBY HERNANDEZ EXP COSIGNER: URGENCY: STATUS: COMPLETED Alerting [facility], please contact [facility] to request a copy of the [facility] last colonoscopy report. /day/ BRENDAN LAGUERRE, AGNP-C NURSE PRACTITIONER Signed: 08/14/2024 12:33 Receipt Acknowledged By: 08/15/2024 14:12 /day/ NARESH NORRIS ADVANCED ANTIQUE FURNITURE REPAIRER --- Original Document --- 08/14/24 PRIMARY CARE PROVIDER ESTABLISHED VISIT STL: ESTABLISHED PATIENT [id number] REASON FOR VISIT/CHIEF COMPLAINT: follow up ; feeling run down HPI: PMH, see problem list 74 y/o male who presents to the medical clinic for his scheduled follow up visit. The purpose of the visit today is to follow up on the veterans chronic medical conditions. Last PCP visit: 02/07/2024 Community Providers: -Urologist: Dr. Nacho Morales, [facility] Physician BLGD 2 -Fire Extinguisher Mechanic: Dr. Fernando Reed, [facility] [place] run down, runny nose, and chills. Took NyQuil which helped temporarily. Denies fevers, chest pain today. Chronic SOB. HFpEF. TTE completed in 07/2023 showed Normal biventricular systolic function, LVEF 60%, Grade II diastolic dysfunction. Euvolemic on exam. HTN. Home BP readings: not monitoring. Denies: CP, AVENDAÑO, Blurred vision, peripheral edema. Carotid artery stenosis. H/O carotid endarterectomy in 2011 at [facility] in [place] Asymptomatic. NIDDM. Home BG readings: not monitoring. CAD. Admitted to OSH for STEMI in 06/2024. Underwent LHC w/ PCI to distal RCA into the rPL brach and mid LAD. Intermittent CP noted since procedure. [place] Cardiology aware. Undergoing Cardiopulmonary rehab at . On [facility]. WHAT IS YOUR GOAL FOR TODAY? F/U chronic medical conditions SOURCE(S) OF HISTORY: -Patient PAST MEDICAL HISTORY: 1) HTN - Hypertension ([facility] [id number]) 2) GERD - Gastro-Esophageal Reflux Disease ([facility] [id number]) 3) Constipation ([facility] [id number]) 4) Prostate cancer comment: s/p prostatectomy 2021 5) Chronic obstructive lung disease 6) Carotid Artery Stenosis ([facility] [id number]) 7) Glaucoma 8) Prediabetes 9) Vitamin D Deficiency ([facility] [id number]) 10) Exposure to potentially hazardous substance 11) Obstructive Sleep Apnea of Adult ([facility] [id number]) 12) Chronic diastolic heart failure comment: Grade III DD noted per TTE at OSH in 06/2024 13) CAD - Coronary Artery Disease ([facility] [id number]) comment: NSTEMI, s/p PCI to distal RCA into the rPL branch and mid LAD. 1/ SURGICAL HISTORY: - Carotid endarterectomy - Prostatectomy INJURIES: - Left humorous fracture and clavicle fracture FAMILY MEDICAL HISTORY: DM: Brother CAD/IHD: brother and sister-HTN MH: none CA: sister, pancreatic cancer SOCIAL HISTORY: Nicotine: quit smoking 4months ago, formerly smoking 20 per day for 60 years Alcohol: denies Illicit Drugs: denies -Lives: alone in condo, no falls -Grocery: independent -Meals: independent -ADL's: independent -Transportation: private vehicle -Medications: independent -finances: independent Allergy: Patient has answered NKA Allergy list reviewed and remains current. MEDICATIONS: Active Outpatient Medications (including Supplies): Active Outpatient [...] ACTIVE Indication: FOR FLUID RETENTION (EDEMA) 12) LOSARTAN 100MG TAB TAKE ONE-HALF TABLET BY MOUTH ONCE A DAY ACTIVE Indication: FOR HIGH BLOOD PRESSURE 13) PANTOPRAZOLE NA 40MG EC TAB TAKE ONE TABLET BY MOUTH EVERY ACTIVE MORNING BEFORE A MEAL TAKE 30 MINUTES BEFORE MEAL(S) Indication: FOR GASTROESOPHAGEAL REFLUX DISEASE 14) ROSUVASTATIN CA 40MG TAB TAKE ONE-HALF TABLET BY MOUTH EVERY ACTIVE EVENING Indication: FOR HIGH CHOLESTEROL 15) TICAGRELOR 90MG TAB TAKE ONE TABLET BY MOUTH TWICE A DAY ACTIVE Indication: FOR CORONARY ARTERY DISEASE 16) TIOTROPIUM 2.5MCG/ACTUAT 60D ORAL INHL INHALE 2 [...] A DAY Indication: FOR ELEVATED INTRAOCULAR PRESSURE 20 Total Medications MEDICATION RECONCILIATION: completed REVIEW OF SYSTEMS: See HPI for further details of positive complaints. All 10 systems reviewed and otherwise negative. PHYSICAL EXAMINATION: VITALS (most recent, as listed in the electronic record): Temperature: 97.4 F [36.3 C] (08/14/2024 09:53) BP: 114/67 (08/14/2024 09:53) Pulse: 68 (08/14/2024 09:53) Resp: 20 (08/14/2024 09:53) PulsOx: 92% (08/14/2024 09:53) Pain: 0 (08/14/2024 09:53) Weight: Measurement DT WEIGHT LB(KG)[BMI] 08/14/2024 09:53 202(91.63)[27] 07/23/2024 09:47 200.8(91.08)[27] 07/03/2024 12:59 197.3(89.49)[26] PHYSICAL EXAMINATION: General appearance: well-groomed, well-nourished, in no distress HEENT: sclera/conjunctiva clear, TMs pearly roland, nares patent no secretions or inflammation, oropharynx WNL Neck: supple, no lymphadenopathy or thyromegaly Cardiovascular: RRR, no murmur, no gallop Respiratory: CTA, no wheezes, crackles or rhonchi ABD/GI: normal contour, bs + in all quads, non-tender M/S: normal gait and posture Extremities: radial/PT pulses 2+, warm, well-perfused Psych: normal affect Neuro: Alert and oriented x 3 Skin: warm, dry, normal color and texture, skin intact DATA REVIEW: HGA1C 6.2 H % 07/23/2024 11:03 HGA1C 6.7 H % 09/05/2023 08:05 HGA1C 6.2 H % 08/01/2022 10:05 = Lipid Panel: TRIGLYCERIDE 112 mg/dL 07/23/2024 11:03 CHOLESTEROL 94 mg/dL 07/23/2024 11:03 HDL(New) 32 L mg/dL 07/23/2024 11:03 CALCULATED LDL 40 mg/dL 07/23/2024 11:03 = CMP: SODIUM 143 mEq/L 07/23/2024 11:03 POTASSIUM 4.1 mEq/L 07/23/2024 11:03 CHLORIDE 102 mEq/L 07/23/2024 11:03 UREA NITROGEN 16.8 mg/dL 07/23/2024 11:03 CREATININE 0.90 mg/dL 07/23/2024 11:03 CALCIUM 10.1 mg/dL 07/23/2024 11:03 PROTEIN 8.8 H g/dL 07/23/2024 11:03 ALBUMIN 4.2 g/dL 07/23/2024 11:03 ALKALINE PHOSPHATASE 109 U/L 07/23/2024 11:03 ALT/SGPT 18 U/L 07/23/2024 11:03 AST/SGOT 19 U/L 07/23/2024 11:03 TOTAL BILIRUBIN 0.5 mg/dL 07/23/2024 11:03 CARBON DIOXIDE 30 mEq/L 07/23/2024 11:03 GLUCOSE 106 H mg/dL 07/23/2024 11:03 EGFR (CKD-EPI 2020) 88.5 07/23/2024 11:03 = CBC: WBC 8.4 10*3/uL 07/23/2024 11:03 RBC 5.34 10*6/uL 07/23/2024 11:03 HGB 15.3 g/dL 07/23/2024 11:03 HCT 48.6 H % 07/23/2024 11:03 MCV 91.0 fL 07/23/2024 11:03 MCH 28.7 pg 07/23/2024 11:03 MCHC 31.5 L g/dL 07/23/2024 11:03 RDW 13.9 % 07/23/2024 11:03 PLT 326 10*3/uL 07/23/2024 11:03 MPV 9.5 fL 07/23/2024 11:03 NEUTROPHILS, AUTO % 48 % 09/05/2023 08:05 [...] BASOPHILS, ABSOLUTE 0.05 10*3/uL 09/05/2023 08:05 NEUTROPHILS 49.5 % 07/23/2024 11:03 LYMPHOCYTES 8.0 % 07/23/2024 11:03 MONOCYTES 1.7 % 11/02/2023 12:47 EOSINOPHILS 29.2 % 07/23/2024 11:03 BASOPHILS 1.8 % 07/23/2024 11:03 ATYPICAL LYMPHOCYTES 11.5 % 07/23/2024 11:03 = PSA: PROST. SPECIFIC AG.(PB-STL) <0.100 ng/mL 09/05/2023 08:05 = TSH: TSH 0.052 L uIU/mL 07/23/2024 11:03 = Vitamin D: VITAMIN D, 25-HYDROXY 20.1 L ng/mL 09/05/2023 08:05 VITAMIN D, 25-HYDROXY 4.3 L ng/mL 08/01/2022 10:05 = Micral: CREATuF: 33.7 (07/23/24 11:16) M/CREAT: 19 (07/23/24 11:16) MICRAL: 6.3 (07/23/24 11:16) ASSESSMENT/PLAN: # Fatigue/rhinitis/chills: - Repsiratory PCR ordered. Continue supportive care # HFpEF: - Managed by Cardiology. Continue plan to start cardiopulmonary rehab. - Blood pressure stable. Continue empagliflozin 12.5mg, losartan 50mg, carvedilol 6.25mg BID, furosemide 40mg. - EKG completed in clinic. NSR with SA. Will order Holter monitor. # CAD: - Managed by cardiology. Continue ticagrelor 90mg, ASA 81mg & rosuvastatin 20mg - Continue lifestyle modifications # COPD/ H/O ARF: - Eval/management per Pulmonology. On supplemental oxygen, 2L NC - Continue Wixela, Spiriva, and albuterol PRN as directed # Carotid artery stenosis: - Eval/management per Vascular SGY. Continue rosuvastatin 20mg and ASA 81mg - F/U carotid US due in 09/2024 # DM II: - Controlled. Continue empagliflozin 12.5mg/day - Trend A1c. Continue lifestyle modifications. # H/O Prostate CA: - S/P prostatectomy. Continue surveillance PSA monitoring, labs ordered # Constipation: - Adequate hydration encouraged. Continue Psyllium & docusate sodium PRN - Increase physical activity # GERD: - Reports symptoms are stable on pantoprazole 40mg PRN. Avoid dietary triggers # Glaucoma: - Onset 10/29/2021 - Continue management per private Optometry service. Continue timolol 0.5% # Vit D Def: - Continue daily cholecalciferol 50mcg supplement, trend labs # Subclinical hyperthyroidism: - Referred to endocrinology for further eval, awaiting clarification of the plan # Allergic Rhinitis: - Stable. Continue azelastine nasal spray PRN # YANNA: - Using CPAP device 7/7 nights - The patient has been advised that using CPAP regularly can decrease cardiac strain and help to control blood pressure. HM: AAA screen: Eligibility: CT scan of abdomen completed in 2017 did not revealed evidence of AAA Colorectal cancer screening: awaiting outside records Prostate cancer screening: Last completed: <0.100 ng/mL 09/05/2023 08:05 Lung cancer screening: Eligibility: Lung CT from OSH reviewed, LDLCT in 12m DEXA: total body NM scan completed 05/2022 for eval of prostate ca was WNL ADMINISTERED Immunization Series Date Facility Reaction Info COVID-19 (MODERNA), MRNA, LNP-S,* 1 06/29/2022 No Site COVID-19 (MODERNA), MRNA, LNP-S,* 3 04/06/2021 No Site COVID-19 (MODERNA), MRNA, LNP-S,* 2 08/27/2020 No Site COVID-19 (MODERNA), MRNA, LNP-S,* 1 07/30/2020 No Site INFLUENZA, HIGH-DOSE, TRIVALENT,* 02/07/2024 [facility] INFLUENZA, UNSPECIFIED FORMULATI* PCP OFFIC* INFLUENZA, UNSPECIFIED FORMULATI* 03/10/2022 No Site PNEUMOCOCCAL CONJUGATE PCV 13 03/26/2019 No Site PNEUMOCOCCAL POLYSACCHARIDE PPV23 04/01/2022 No Site ZOSTER RECOMBINANT C 09/29/2022 [facility]* ZOSTER RECOMBINANT 1 08/01/2022 . [facility]* <C> REFUSED ======= Immunization Date Facility Info COVID-19 (NOVAVAX), SUBUNIT, RS-* 02/07/2024 [facility]* <I> INFLUENZA, UNSPECIFIED FORMULATI* 07/29/2022 [facility]* <I> PNEUMOCOCCAL CONJUGATE, UNSPECIF* 07/29/2022 [facility]* <I> TDAP 02/07/2024 [facility]* <I> TDAP 07/28/2023 [facility]* <I> TDAP 07/29/2022 [facility]* <I> ZOSTER RECOMBINANT 07/29/2022 [facility]* <I> clinical reminders completed; educated on continuing to avoid salt, conc sweets; benefits of continued exercise, reg PCP visits, routine eyes exams Plan of care has been discussed with including expected therapeutic benefits and potential side effects of prescribed medications and treatments. Current medication list has been reconciled with and updated accordingly. [place] was instructed to keep all scheduled appointments and to contact prototype engineer manager for any additional problems. [place] verbalizes understanding and is in agreement with the plan of care. RTC: 6 months or sooner as needed PREVENTION & SCREENING: ALCOHOL: Clinical Reminder not due now or within a month BLOOD PRESSURE: Clinical Reminder not due now or within a month HEMOGLOBIN A1C: Clinical Reminder not due now or within a month Initial Lung Cancer Screen (Provider): No clinical exclusions, patient is a current candidate for the lung cancer screening program. Patient declines lung cancer screening THIS YEAR ONLY. Lung cancer screening information provided. /day/ COLBY HERNANDEZ, MSN, AGNP-C NURSE PRACTITIONER Signed: 08/14/2024 12:33 COLBY HERNANDEZ [facility] Aug 14, 2024 10:02 AM PRIMARY CARE NOTE: LOCAL TITLE: PRIMARY CARE PROVIDER ESTABLISHED VISIT [facility] STANDARD TITLE: PRIMARY CARE NOTE DATE OF NOTE: AUG 14, 2024@10:02 ENTRY DATE: AUG 14, 2024@10:02:07 AUTHOR: COLBY HERNANDEZ EXP COSIGNER: URGENCY: STATUS: COMPLETED PRIMARY CARE PROVIDER ESTABLISHED VISIT [facility] Has ADDENDA ESTABLISHED PATIENT [id number] REASON FOR VISIT/CHIEF COMPLAINT: follow up ; feeling run down HPI: PMH, see problem list 74 y/o male who presents to the medical clinic for his scheduled follow up visit. The purpose of the visit today is to follow up on the veterans chronic medical conditions. Last PCP visit: 02/07/2024 Community Providers: -Urologist: Dr. Nacho Morales, [facility] Physician BLGD 2 -Fire Extinguisher Mechanic: Dr. Fernando Reed, [facility] [place] run down, runny nose, and chills. Took NyQuil which helped temporarily. Denies fevers, chest pain today. Chronic SOB. HFpEF. TTE completed in 07/2023 showed Normal biventricular systolic function, LVEF 60%, Grade II diastolic dysfunction. Euvolemic on exam. HTN. Home BP readings: not monitoring. Denies: CP, AVENDAÑO, Blurred vision, peripheral edema. Carotid artery stenosis. H/O carotid endarterectomy in 2011 at [facility] in [place]. Asymptomatic. NIDDM. Home BG readings: not monitoring. CAD. Admitted to OSH for STEMI in 06/2024. Underwent LHC w/ PCI to distal RCA into the rPL brach and mid LAD. Intermittent CP noted since procedure. IN Cardiology aware. Undergoing Cardiopulmonary rehab at . On [facility]AP[facility]. WHAT IS YOUR GOAL FOR TODAY? F/U chronic medical conditions SOURCE(S) OF HISTORY: -Patient PAST MEDICAL HISTORY: 1) HTN - Hypertension ([facility] [id number]) 2) GERD - Gastro-Esophageal Reflux Disease ([facility] [id number]) 3) Constipation ([facility] [id number]) 4) Prostate cancer comment: s/p prostatectomy 2021 5) Chronic obstructive lung disease 6) Carotid Artery Stenosis ([facility] [id number]) 7) Glaucoma 8) Prediabetes 9) Vitamin D Deficiency ([facility] [id number]) 10) Exposure to potentially hazardous substance 11) Obstructive Sleep Apnea of Adult ([facility] [id number]) 12) Chronic diastolic heart failure comment: Grade III DD noted per TTE at OSH in 06/2024 13) CAD - Coronary Artery Disease ([facility] [id number]) comment: NSTEMI, s/p PCI to distal RCA into the rPL branch and mid LAD. 1/ SURGICAL HISTORY: - Carotid endarterectomy - Prostatectomy INJURIES: - Left humorous fracture and clavicle fracture FAMILY MEDICAL HISTORY: DM: Brother CAD/IHD: brother and sister-HTN MH: none CA: sister, pancreatic cancer SOCIAL HISTORY: Nicotine: quit smoking 4months ago, formerly smoking 20 per day for 60 years Alcohol: denies Illicit Drugs: denies -Lives: alone in condo, no falls -Grocery: independent -Meals: independent -ADL's: independent -Transportation: private vehicle -Medications: independent -finances: independent Allergy: Patient has answered NKA Allergy list reviewed and remains current. MEDICATIONS: Active Outpatient Medications (including Supplies): Active Outpatient [...] ACTIVE Indication: FOR FLUID RETENTION (EDEMA) 12) LOSARTAN 100MG TAB TAKE ONE-HALF TABLET BY MOUTH ONCE A DAY ACTIVE Indication: FOR HIGH BLOOD PRESSURE 13) PANTOPRAZOLE NA 40MG EC TAB TAKE ONE TABLET BY MOUTH EVERY ACTIVE MORNING BEFORE A MEAL TAKE 30 MINUTES BEFORE MEAL(S) Indication: FOR GASTROESOPHAGEAL REFLUX DISEASE 14) ROSUVASTATIN CA 40MG TAB TAKE ONE-HALF TABLET BY MOUTH EVERY ACTIVE EVENING Indication: FOR HIGH CHOLESTEROL 15) TICAGRELOR 90MG TAB TAKE ONE TABLET BY MOUTH TWICE A DAY ACTIVE Indication: FOR CORONARY ARTERY DISEASE 16) TIOTROPIUM 2.5MCG/ACTUAT 60D ORAL INHL INHALE 2 [...] A DAY Indication: FOR ELEVATED INTRAOCULAR PRESSURE 20 Total Medications MEDICATION RECONCILIATION: completed REVIEW OF SYSTEMS: See HPI for further details of positive complaints. All 10 systems reviewed and otherwise negative. PHYSICAL EXAMINATION: VITALS (most recent, as listed in the electronic record): Temperature: 97.4 F [36.3 C] (08/14/2024 09:53) BP: 114/67 (08/14/2024 09:53) Pulse: 68 (08/14/2024 09:53) Resp: 20 (08/14/2024 09:53) PulsOx: 92% (08/14/2024 09:53) Pain: 0 (08/14/2024 09:53) Weight: Measurement DT WEIGHT LB(KG)[BMI] 08/14/2024 09:53 202(91.63)[27] 07/23/2024 09:47 200.8(91.08)[27] 07/03/2024 12:59 197.3(89.49)[26] PHYSICAL EXAMINATION: General appearance: well-groomed, well-nourished, in no distress HEENT: sclera/conjunctiva clear, TMs pearly roland, nares patent no secretions or inflammation, oropharynx WNL Neck: supple, no lymphadenopathy or thyromegaly Cardiovascular: RRR, no murmur, no gallop Respiratory: CTA, no wheezes, crackles or rhonchi ABD/GI: normal contour, bs + in all quads, non-tender M/S: normal gait and posture Extremities: radial/PT pulses 2+, warm, well-perfused Psych: normal affect Neuro: Alert and oriented x 3 Skin: warm, dry, normal color and texture, skin intact DATA REVIEW: HGA1C 6.2 H % 07/23/2024 11:03 HGA1C 6.7 H % 09/05/2023 08:05 HGA1C 6.2 H % 08/01/2022 10:05 = Lipid Panel: TRIGLYCERIDE 112 mg/dL 07/23/2024 11:03 CHOLESTEROL 94 mg/dL 07/23/2024 11:03 HDL(New) 32 L mg/dL 07/23/2024 11:03 CALCULATED LDL 40 mg/dL 07/23/2024 11:03 = CMP: SODIUM 143 mEq/L 07/23/2024 11:03 POTASSIUM 4.1 mEq/L 07/23/2024 11:03 CHLORIDE 102 mEq/L 07/23/2024 11:03 UREA NITROGEN 16.8 mg/dL 07/23/2024 11:03 CREATININE 0.90 mg/dL 07/23/2024 11:03 CALCIUM 10.1 mg/dL 07/23/2024 11:03 PROTEIN 8.8 H g/dL 07/23/2024 11:03 ALBUMIN 4.2 g/dL 07/23/2024 11:03 ALKALINE PHOSPHATASE 109 U/L 07/23/2024 11:03 ALT/SGPT 18 U/L 07/23/2024 11:03 AST/SGOT 19 U/L 07/23/2024 11:03 TOTAL BILIRUBIN 0.5 mg/dL 07/23/2024 11:03 CARBON DIOXIDE 30 mEq/L 07/23/2024 11:03 GLUCOSE 106 H mg/dL 07/23/2024 11:03 EGFR (CKD-EPI 2020) 88.5 07/23/2024 11:03 = CBC: WBC 8.4 10*3/uL 07/23/2024 11:03 RBC 5.34 10*6/uL 07/23/2024 11:03 HGB 15.3 g/dL 07/23/2024 11:03 HCT 48.6 H % 07/23/2024 11:03 MCV 91.0 fL 07/23/2024 11:03 MCH 28.7 pg 07/23/2024 11:03 MCHC 31.5 L g/dL 07/23/2024 11:03 RDW 13.9 % 07/23/2024 11:03 PLT 326 10*3/uL 07/23/2024 11:03 MPV 9.5 fL 07/23/2024 11:03 NEUTROPHILS, AUTO % 48 % 09/05/2023 08:05 [...] BASOPHILS, ABSOLUTE 0.05 10*3/uL 09/05/2023 08:05 NEUTROPHILS 49.5 % 07/23/2024 11:03 LYMPHOCYTES 8.0 % 07/23/2024 11:03 MONOCYTES 1.7 % 11/02/2023 12:47 EOSINOPHILS 29.2 % 07/23/2024 11:03 BASOPHILS 1.8 % 07/23/2024 11:03 ATYPICAL LYMPHOCYTES 11.5 % 07/23/2024 11:03 = PSA: PROST. SPECIFIC AG.(PB-STL) <0.100 ng/mL 09/05/2023 08:05 = TSH: TSH 0.052 L uIU/mL 07/23/2024 11:03 = Vitamin D: VITAMIN D, 25-HYDROXY 20.1 L ng/mL 09/05/2023 08:05 VITAMIN D, 25-HYDROXY 4.3 L ng/mL 08/01/2022 10:05 = Micral: CREATuF: 33.7 (07/23/24 11:16) M/CREAT: 19 (07/23/24 11:16) MICRAL: 6.3 (07/23/24 11:16) ASSESSMENT/PLAN: # Fatigue/rhinitis/chills: - Repsiratory PCR ordered. Continue supportive care # HFpEF: - Managed by Cardiology. Continue plan to start cardiopulmonary rehab. - Blood pressure stable. Continue empagliflozin 12.5mg, losartan 50mg, carvedilol 6.25mg BID, furosemide 40mg. - EKG completed in clinic. NSR with SA. Will order Holter monitor. # CAD: - Managed by cardiology. Continue ticagrelor 90mg, ASA 81mg & rosuvastatin 20mg - Continue lifestyle modifications # COPD/ H/O ARF: - Eval/management per Pulmonology. On supplemental oxygen, 2L NC - Continue Wixela, Spiriva, and albuterol PRN as directed # Carotid artery stenosis: - Eval/management per Vascular SGY. Continue rosuvastatin 20mg and ASA 81mg - F/U carotid US due in 09/2024 # DM II: - Controlled. Continue empagliflozin 12.5mg/day - Trend A1c. Continue lifestyle modifications. # H/O Prostate CA: - S/P prostatectomy. Continue surveillance PSA monitoring, labs ordered # Constipation: - Adequate hydration encouraged. Continue Psyllium & docusate sodium PRN - Increase physical activity # GERD: - Reports symptoms are stable on pantoprazole 40mg PRN. Avoid dietary triggers # Glaucoma: - Onset 10/29/2021 - Continue management per private Optometry service. Continue timolol 0.5% # Vit D Def: - Continue daily cholecalciferol 50mcg supplement, trend labs # Subclinical hyperthyroidism: - Referred to endocrinology for further eval, awaiting clarification of the plan # Allergic Rhinitis: - Stable. Continue azelastine nasal spray PRN # YANNA: - Using CPAP device 7/7 nights - The patient has been advised that using CPAP regularly can decrease cardiac strain and help to control blood pressure. HM: AAA screen: Eligibility: CT scan of abdomen completed in 2017 did not revealed evidence of AAA Colorectal cancer screening: awaiting outside records Prostate cancer screening: Last completed: <0.100 ng/mL 09/05/2023 08:05 Lung cancer screening: Eligibility: Lung CT from OSH reviewed, LDLCT in 12m DEXA: total body NM scan completed 05/2022 for eval of prostate ca was WNL ADMINISTERED Immunization Series Date Facility Reaction Info COVID-19 (MODERNA), MRNA, LNP-S,* 1 06/29/2022 No Site COVID-19 (MODERNA), MRNA, LNP-S,* 3 04/06/2021 No Site COVID-19 (MODERNA), MRNA, LNP-S,* 2 08/27/2020 No Site COVID-19 (MODERNA), MRNA, LNP-S,* 1 07/30/2020 No Site INFLUENZA, HIGH-DOSE, TRIVALENT,* 02/07/2024 [facility] INFLUENZA, UNSPECIFIED FORMULATI* PCP OFFIC* INFLUENZA, UNSPECIFIED FORMULATI* 03/10/2022 No Site PNEUMOCOCCAL CONJUGATE PCV 13 03/26/2019 No Site PNEUMOCOCCAL POLYSACCHARIDE PPV23 04/01/2022 No Site ZOSTER RECOMBINANT C 09/29/2022 [facility]* ZOSTER RECOMBINANT 1 08/01/2022 [facility]* <C> REFUSED ======= Immunization Date Facility Info COVID-19 (NOVAVAX), SUBUNIT, RS-* 02/07/2024 [facility] <I> INFLUENZA, UNSPECIFIED FORMULATI* 07/29/2022 [facility]* <I> PNEUMOCOCCAL CONJUGATE, UNSPECIF* 07/29/2022 [facility]* <I> TDAP 02/07/2024 [facility]* <I> TDAP 07/28/2023 [facility]* <I> TDAP 07/29/2022 [facility]* <I> ZOSTER RECOMBINANT 07/29/2022 [facility]* <I> clinical reminders completed; educated on continuing to avoid salt, conc sweets; benefits of continued exercise, reg PCP visits, routine eyes exams Plan of care has been discussed with including expected therapeutic benefits and potential side effects of prescribed medications and treatments. Current medication list has been reconciled with and updated accordingly. was instructed to keep all scheduled appointments and to contact prototype engineer manager for any additional problems. verbalizes understanding and is in agreement with the plan of care. RTC: 6 months or sooner as needed PREVENTION & SCREENING: ALCOHOL: Clinical Reminder not due now or within a month BLOOD PRESSURE: Clinical Reminder not due now or within a month HEMOGLOBIN A1C: Clinical Reminder not due now or within a month Initial Lung Cancer Screen (Provider): No clinical exclusions, patient is a current candidate for the lung cancer screening program. Patient declines lung cancer screening THIS YEAR ONLY. Lung cancer screening information provided. /day/ COLBY HERNANDEZ MSN, AGNP-C NURSE PRACTITIONER Signed: 08/14/2024 12:33 08/14/2024 ADDENDUM STATUS: COMPLETED Alerting MSA, please contact [facility] to request a copy of the [facility] last colonoscopy report. /day/ COLBY HERNANDEZ, MSN, AGNP-C NURSE PRACTITIONER Signed: 08/14/2024 12:33 Receipt Acknowledged By: * AWAITING SIGNATURE * NARESH NORRIS [facility] Aug 14, 2024 09:56 AM NURSING NOTE: LOCAL TITLE: 5 PACT FACE TO FACE NOTE STL STANDARD TITLE: NURSING NOTE DATE OF NOTE: AUG 14, 2024@09:56 ENTRY DATE: AUG 14, 2024@09:56:54 AUTHOR: ARIELLE VELASQUEZ EXP COSIGNER: URGENCY: STATUS: COMPLETED 5 PACT FACE TO FACE NOTE STL Has ADDENDA Provider Visit: Patient Identifiers : Full Name Date of Reason for visit: Established Follow-Up Mode of Arrival: Ambulatory Allergy Review: Patient has answered NKA Allergy list reviewed and remains current. Recent Vital Signs: Temperature: 97.4 F [36.3 C] (08/14/2024 09:53) Pulse: 68 (08/14/2024 09:53) Respiration: 20 (08/14/2024 09:53) B/P: 114/67 (08/14/2024 09:53) Pain: 0 (08/14/2024 09:53) Wt: 202 lb [91.63 kg] (08/14/2024 09:53) Ht: 73 in [185.4 cm] (05/07/2024 09:52) BMI: 26.7 POX: 92% (08/14/2024 09:53) Blood sugar glucometer reading: PERSONAL HEALTH INVENTORY Notes: No data available for PHI note titles PERSONAL HEALTH INVENTORY - MAP: 02/07/2024 Personal Health Plan [place], [place], Purpose (MAP) Stated everything is going well for him What matters most to you in your life right now? - 's Response: i dont know my health WHOLE HEALTH SHARED GOALS: PERSONAL HEALTH PLAN - SHARED GOALS: No data available for: Php Shared Goals SHARED GOALS starting cardiology pulmonary rehab at Would you like to discuss any personal problem, family problem, alcohol use, drug use, or a mental or emotional illness? No [facility] ([facility]), please select appointment type: Face to face: No-please briefly review benefits and direct to [facility] to get more information and register if interested. No- Are you interested in getting this done? No Contact provided Primary Care phone number and encouraged to call if any questions or concerns. Review that after hours nurse line [phone] and emergency room are available 26/12 for patient use. Contact verbalized good understanding. No notification required for this note. Sexual Orientation - CP,L,N,P,PH,PS,S,U: The patient thinks of their sexual orientation as: Straight or Heterosexual Alcohol Use Screen (AUDIT-C) - V: Alcohol Screen: SCREEN FOR ALCOHOL (AUDIT-C) An alcohol screening test (AUDIT-C) was negative (score=0). 1. How often did you have a drink containing alcohol in the past year? Consider a drink to be a 12 ounce can or bottle of regular beer, 8 ounces of malt liquor, a 5 ounce glass of table wine, or a 1.5 ounce shot of liquor (like scotch, gin, or vodka). Never 2. How many drinks containing alcohol did you have on a typical day when you were drinking in the past year? Response not required due to responses to other questions. 3. How often did you have six or more drinks on one occasion in the past year? Response not required due to responses to other questions. Depression Screening - V: Perform PHQ-2 A PHQ-2 screen was performed. The score was 0 which is a negative screen for depression. Over the past two weeks, how often have you been bothered by the following problems? 1. Little interest or pleasure in doing things Not at all 2. Feeling down, depressed, or hopeless Not at all Frail/Elderly Screen: ADL Screen - Raymond Index of [place] in Activities of Daily Living Bathing: (3 Points) Receives no assistance (gets in and out of tub by self, if tub is usual means of bathing) Dressing: (3 Points) Gets clothes and gets completely dressed without assistance. Toileting: (3 Points) Goes to toilet room , cleans self, and arranges clothes without assistance (may use object for support such as cane, walker, or wheelchair, and may manage own night bedpan or commode, emptying same next morning) Transferring: (3 Points) Moves in and out of bed and in and out of chair without assistance (may be using object for support, such as cane or walker) Continence: (3 Points) Controls urination and bowel movement completely by self Feeding: (3 Points) Feeds self without assistance Total Score: 18 Points 18 = High (patient independent) 6 = Low (patient very dependent) IADL Screen - [place] Instrumental Activities of Daily Living Scale Ability to use telephone: (1 point) Operates Telephone on own initiative; looks up and dials numbers. Shopping: (1 point) Takes care of all shopping needs independently. Food preparation: (1 point) Plans, prepares, and serves adequate meals independently. Housekeeping: (1 point) Maintains house alone with occasional assistance (heavy work). Laundry: (1 point) Does personal laundry completely. Mode of transportation: (1 point) Travels independently on public transportation or drives own car. Responsibility for own medications: (1 point) Is responsible for taking medications in correct dosages at correct times. Ability to handle finances: (1 point) Manages financial matters independently (budgets, writes checks, pays rent and bills, goes to bank); collects and keeps track of income. Total score: 8 points 8 = High function, independent 0 = Low function, dependent Falls Screen: No falls within the past 12 months. /jeff VELASQUEZ RN, MSN REGISTERED NURSE Signed: 08/14/2024 10:07 08/14/2024 ADDENDUM STATUS: COMPLETED RNCM completed EKG, results given to PCP for review. PCP okayed for to disposition to home. Nasal swab collected and sent to lab. RNCM held covid vaccine due to not feeling well today. [place] instructed to schedule a nurse visit for the covid vaccine when feeling better. /jeff VELASQUEZ RN, MSN REGISTERED NURSE Signed: 08/14/2024 11:27 ARIELLE VELASQUEZ [facility]
--- OUTSIDE RECORDS SUMMARY | 2024-09-01 12:56 | XMS_ITS | Encounter Summary ---
Author Name [facility] [place] Organization [facility] [place] Address [address] [place] [address] Care Team Providers Care Frame Stylist Name Role Phone COLBY HERNANDEZ Primary Care [...] Mullen's Name Patient's Relationship to Policy Mullen [facility] (WNR) MEDICARE ADVANTAGE [facility] (WNR) Jun 05, 2022 [id number] Robel CARBALLO PATIENT [facility] (WNR) MEDICARE ADVANTAGE [facility] (WNR) Jun 05, 2022 [id number] Robel CARBALLO PATIENT [facility] (WNR) MEDICARE ADVANTAGE [facility] (WNR) Jun 05, 2022 [id number] Robel CARBALLO PATIENT Selected Encounter This section includes the information on record at [place] for the Encounter. Date/Time Encounter Type Encounter Description Reason Provider Source Jan 26, 2024 01:17 PM Outpatient Encounter COMMUNITY CARE CONSULT TONY BRADLEY Encounter Template Text not used by [facility] Plan of Treatment: Future Appointments (+ 6 months) and Future Tests (+/- 45 days) The Plan of Treatment section includes future care activities for the patient from all [place] [facility]. This section includes future appointments and future orders which are active, pending or scheduled. Future Appointments This section includes appointments that were scheduled to occur 6 months from the date of the Encounter, up to a maximum of 20 appointments. The data comes from all [facility]. Appointment Date/Time Appointment Type Appointme nt Facility Name Feb 07, 2024 10:30 AM AMBULATORY - MEDICINE [facility] Feb 27, 2024 09:30 AM AMBULATORY - MEDICINE [facility] Feb 27, 2024 10:30 AM AMBULATORY - NONE [facility] Apr 26, 2024 10:30 AM AMBULATORY - MEDICINE [facility] May 07, 2024 10:00 AM AMBULATORY MEDICINE [facility] Jun 21, 2024 10:00 AM AMBULATORY [facility] Jul 03, 2024 01:00 PM AMBULATORY - MEDICINE [facility] Jul 23, 2024 10:00 AM AMBULATORY [facility] Active, Pending, and Scheduled Orders This section includes a listing of several types of active, pending, and scheduled orders, including clinic medications orders, diagnostic test orders, procedure orders and consult orders; where the start date of the order is 45 days before the date of the Encounter or 45 days after the date of theEncounter. The data comes from all [facility]. Test Date/Time Test Type Test Details Facility Name Feb 07, 2024 12:00 AM Laboratory - Chemi stry Order HGA1C BLOOD [facility] Feb 07, 2024 12:00 AM Laboratory - Chemi stry Order VITAMIN D, 25-HYDROXY GOLD/RED SST SERUM SP [facility] Radiology Reports: +/- 30 days of the [...] the Encounter. The data comes from all [facility]. Date/Time Radiology Report Provider Source Jan 12, 2024 10:15 AM CHEST X-RAY, 2 VIE WS: PATRICK CARBALLO [id number] -1950 M Exm Date: JAN 12, 2024@10:15 Req Phys: ADRIANNE ROCHA Pat Loc: [facility]-PULMONARY BRONCHOSCOPY (Req Img Loc: [facility]-MAIN RADIOLOGY SUITE Service: Unknown [address] [address] (Case [id number] COMPLETE) CHEST X-RAY, 2 VIEWS (RAD Detailed) CPT:56911 Reason for Study: pleural effusion follow up Clinical History: Report Status: Verified Date Reported: JAN 12, 2024 Date Verified: JAN 12, 2024 Pet Care Associate E-Sig:/ES/ZAHRA BRAMBILA MD Report: Case #[id number]. Chest [...] ZAHRA BRAMBILA MD, Staff Physician - Radiologist (Pet Care Associate) /ZAHRA PEGUERO [facility] Jan 12, 2024 10:15 AM CHEST SPECIAL (LTD ECUB): PATRICK CARBALLO [id number] -1950 M Exm Date: JAN 12, 2024@10:15 Req Phys: ADRIANNE ROCHA Loc: [facility]PULMONARY BRONCHOSCOPY (Req Img Loc: [facility]-MAIN RADIOLOGY SUITE Service: Unknown [address] [address] (Case [id number] COMPLETE) CHEST SPECIAL (LTDECUB) (RAD Detailed) CPT:95731 [facility] Reason for Study: pleural effusion follow up Clinical History: Report Status: Verified Date Reported: JAN 12, 2024 Date Verified: JAN 12, 2024 Pet Care Associate E-Sig:/ES/ZAHRA BRAMBILA MD Report: Case #[id number]. Left antecubital chest examination. Finding: Left decubitus chest examination shows no evidence of layering of left pleural effusion. Impression: In comparison to previous study findings are compatible with loculated left pleural effusion. Primary Interpreting Staff: ZAHRA BRAMBILA MD, Staff Physician - Radiologist (Pet Care Associate) /ZAHRA PEGUERO [facility] Jan 12, 2024 10:15 AM CHEST SPECIAL (RTD ECUB): PATRICK CARBALLO [id number] -1950 M Exm Date: JAN 12, 2024@10:15 Req Phys: ADRIANNE ROCHA Loc: [facility]-PULMONARY BRONCHOSCOPY (Req Img Loc: -MAIN RADIOLOGY SUITE Service: [address] [address] (Case [id number] COMPLETE) CHEST SPECIAL (RTDECUB) (RAD Detailed) CPT:89857 Proc Modifiers : RT LatDec Reason for Study: pleural effusion follow up Clinical History: Report Status: Verified Date Reported: JAN 12, 2024 Date Verified: JAN 12, 2024 Pet Care Associate E-Sig:/ELKE/ZAHRA BRAMBILA MD Report: Case #[id number]. Right decubitus chest examination. Finding: Right decubitus chest examination shows no evidence of layering of right pleural fluid collection. Impression: No free right pleural effusion. Primary Interpreting Staff: ZAHRA BRAMBILA MD, Staff Physician - Radiologist (Pet Care Associate) /ZAHRA PEGUERO [facility] Encounter Notes: All associated encounter notes This section contains the clinical notes associated to the Encounter. Date/Time Encounter Note(s) Provider Source Feb 06, 2024 10:26 AM RESPIRATORY THERAP Y CONSULT: LOCAL TITLE: RESPIRATORY THERAPY CONSULT [facility] STANDARD TITLE: RESPIRATORY THERAPY CONSULT DATE OF NOTE: FEB 06, 2024@10:26 ENTRY DATE: FEB 06, 2024@10:26:27 AUTHOR: TIFFANY POPE COSIGNER: URGENCY: STATUS: COMPLETED * APAP+Supplies ordered through [facility]. A11 10-20cm/H2O;EvoraFull-M. km /elke/ TIFFANY POPE WELDING MACHINE OPERATOR ULTRASONIC, SLEEP LABORATORY Signed: 02/06/2024 10:27 TIFFANY POPE [facility] Jan 26, 2024 01:17 PM NONVA NOTE: LOCAL TITLE: COMMUNITY CARE-CARE COORDINATION PLAN NOTE [address] STANDARD TITLE: NONVA NOTE DATE OF NOTE: JAN 26, 2024@13:17 ENTRY DATE: JAN 26, 2024@13:18:10 AUTHOR: CONCEPCION BRADLEY EXP COSIGNER: URGENCY: STATUS: COMPLETED Community Care Consult: [phone] Consult No: [id number] [facility] Referral #: [id number] Chief Complaint: PSG Sleep Study Patient Admitted? No Level of Care Coordination Moderate Care Coordination was determined from: Chart Review Facility Community Care Office Contact Care Coordination Point of Contact: Concepcion Bradley RN Services: Basic Care Coordination Services Monitoring and coordination of Rehab/PT Services Direct communication to referring provider Care management, if appropriate Plan: Clinical records obtained and sent for upload. Follow up with Episodes of care for Sleep Study and recommended treatment. Call made to informing records from Sleep study received and sent for review. states everything is going well, nothing needed at this time. [place] given contact info to [facility] and was told [facility] is readily available for any additional assistance needed. F/u in 1 month, as needed, agreed. /elke/ CONCEPCION BRADLEY REGISTERED NURSE Signed: 01/26/2024 13:40 CONCEPCION BRADLEY [facility]
--- OUTSIDE RECORDS SUMMARY | 2024-09-01 12:56 | XMS_ITS | CONTINUITY OF CARE DOCUMENT ---
Author Name robert jones Address Unknown Organization [facility] Address [address] [place] [address] Phone [phone] Care Team Providers Care Operational Meteorologist Name Role Phone Vishal THOMPSON, Kendra Unavailable [phone] LEONARD CONCEPCION MD Unavailable [phone] INSURANCE PROVIDERS Payer name Policy type / Coverage type [place] red libertarian ID [employer] OPEN ACCESS Other [id number]
--- OUTSIDE RECORDS SUMMARY | 2024-09-01 12:56 | XMS_ITS ---
Author Name [facility] [place] [facility] [place] Address [address] [place] [id number] Care Team Providers Care Radio Television Technical Director Name Role Phone COLBY FERRARA Primary Care [...] Mullen's Name Patient's Relationship to Policy Mullen [facility] (WNR) MEDICARE ADVANTAGE [facility] (WNR) Jun 05, 2022 [id number] Robel CARBALLO PATIENT [facility] (WNR) MEDICARE ADVANTAGE [facility] (WNR) Jun 05, 2022 [id number] Robel CARBALLO PATIENT [facility] (WNR) MEDICARE ADVANTAGE [facility] (WNR) Jun 05, 2022 [id number] Robel CARBALLO PATIENT Selected Encounter This section includes the information on record at [place] for the Encounter. Date/Time Encounter Type Encounter Description Reason Provider Source Feb 27, 2024 09:30 AM OFF/OP CNSLTJ NEW/EST MOD 40 CARDIOLOGY ICD-10-CM I50.32 Chronic diastolic (congestive) heart failure OU,[facility] Encounter Template Text not used by VA Assessments - Encounter Diagnoses This section includes the primary and secondary diagnoses documented for the Encounter. Date/Time Primary/Secondary Diagnosis Diagnosis Name Provider Source Feb 27, 2024 11:46 AM PRIMARY Chronic diastolic (congestive) heart failure [facility] Feb 27, 2024 11:46 AM SECONDARY Chronic obstructive pulmonary disease, unspecified [facility] Feb 27, 2024 11:46 AM SECONDARY Essential (primary) hypertension OU,[facility] Plan of Treatment: Future Appointments (+ 6 months) and Future Tests (+/- 45 days) The Plan of Treatment section includes future care activities for the patient from all [place] [facility] This section includes future appointments and future orders which are active, pending or scheduled. Future Appointments This section includes appointments that were scheduled to occur 6 months from the date of the Encounter, up to a maximum of 20 appointments. The data comes from all [place] treatment facilities. Appointment Date/Time Appointment Type Appointme nt Facility Name Apr 26, 2024 10:30 AM AMBULATORY - MEDICINE [facility] May 07, 2024 10:00 AM AMBULATORY - MEDICINE [facility] Jun 21, 2024 10:00 AM AMBULATORY - MEDICINE [facility] Jul 03, 2024 01:00 PM AMBULATORY - MEDICINE [facility] Jul 23, 2024 10:00 AM AMBULATORY - MEDICINE [facility] Aug 05, 2024 10:00 AM AMBULATORY - MEDICINE [facility] Aug 06, 2024 09:00 AM AMBULATORY - REHAB MEDICIN E [facility] Aug 14, 2024 10:00 AM AMBULATORY - MEDICINE [facility] Aug 15, 2024 11:00 AM AMBULATORY - REHAB MEDICIN E [facility] Aug 15, 2024 01:00 PM AMBULATORY - REHAB MEDICIN E [facility] Aug 15, 2024 02:00 PM AMBULATORY - NONE [facility] Aug 20, 2024 01:00 PM AMBULATORY - REHAB MEDICIN E [facility] Aug 20, 2024 02:00 PM AMBULATORY - REHAB MEDICIN E [facility] Aug 22, 2024 01:00 PM AMBULATORY - REHAB MEDICIN E [facility] Aug 22, 2024 02:00 PM AMBULATORY - PSYCHIATRY [facility] Active, Pending, and Scheduled Orders This section includes a listing of several types of active, pending, and scheduled orders, including clinic medications orders, diagnostic test orders, procedure orders and consult orders; where the start date of the order is 45 days before the date of the Encounter or 45 days after the date of theEncounter. The data comes from all [facility] facilities. Test Date/Time Test Type Test Details Facility Name Feb 07, 2024 12:00 AM Laboratory - Chemi stry Order VITAMIN D, 25-HYDROXY GOLD/RED SST SERUM SP [facility] Feb 07, 2024 12:00 AM Laboratory - Chemi stry Order HGA1C BLOOD [facility] Vital Signs: All taken on the encounter date This section contains inpatient and outpatient Vital Signs collected on the date of the Encounter. Date/Time Temperature Pulse Blood Pressure Respiratory Rate SP02 Pain Height Weight Body Mass Index Source Feb 27, 2024 09:31 AM 152/75 [facility] Feb 27, 2024 09:28 AM 98 74 151/77 20 93 0 196.6 26 [facility] Encounter Notes: All associated encounter notes This section contains the clinical notes associated to the Encounter. Date/Time Encounter Note(s) Provider Source Feb 27, 2024 10:13 AM CARDIOLOGY CONSULT : LOCAL TITLE: CARDIOLOGY OUTPATIENT CONSULT [facility] STANDARD TITLE: CARDIOLOGY CONSULT DATE OF NOTE: FEB 27, 2024@10:13 ENTRY DATE: FEB 27, 2024@10:13:50 AUTHOR: FUNMILAYO DORADO EXP COSIGNER: MELVIN ROMERO URGENCY: STATUS: COMPLETED CARDIOLOGY OUTPATIENT CONSULT ST Has ADDENDA Cardiology Consult Note Reason for consult: establish care for HF Referring provider: Colby Ferrara History of present illness: This is 73 year old MALE with COPD I, HFpEF (EF 60%), carotid stenosis, DM T2, h/o prostate ca, GERD, glaucoma,l Vit D def who presents to clinic today to establish care for HFpEF. He had a recent hospitalization for multifocal pneumonia complicated by a new diagnosis of heart failure. At that time his EF was 60% with diastolic dysfunction. He states since discharge has has not had any worsening SOB or leg swelling. His chart is reviewed. History is taken from the patient. Patient denies exertional chest pain, dyspnea, palpitation. No orthopnea, PND or leg swelling. No syncope, dizziness, claudication. Past Medical History: 1) HTN - Hypertension ([facility] [id number]) 2) GERD - Gastro-Esophageal Reflux Disease ([facility] [id number]) 3) Constipation ([facility] [id number]) 4) Prostate cancer 5) Chronic obstructive lung disease 6) Carotid Artery Stenosis ([facility] [id number]) 7) Glaucoma 8) Prediabetes 9) Vitamin D Deficiency ([facility] [id number]) 10) Exposure to potentially hazardous substance 11) Obstructive Sleep Apnea of Adult ([facility] [id number]) 12) Chronic diastolic heart failure Current Medication: Active Outpatient Medications (including Supplies): Active Outpatient Medications Status 1) ACCU-CHEK GUIDE (GLUCOSE) TEST STRIP USE 1 STRIP FOR ACTIVE BLOOD TEST DIRECTED *DIAGNOSIS, 50 STRIPS PER YEAR Sep 2) ALCOHOL PREP PAD USE/APPLY PAD TO AFFECTED AREA(S) ACTIVE ONCE A DAY NEEDED FOR SKIN CLEANSING 3) AZELASTINE 137MCG/SPRAY 200D NASAL INHL SPRAY 1 SPRAY ACTIVE IN NOSTRIL(S) TWICE A DAY FOR ALLERGIC RHINITIS *PRIME BEFORE USE* 4) CHOLECALCIF 50MCG (D3-2,000UNIT) TAB TAKE ONE TABLET ACTIVE BY MOUTH ONCE A DAY FOR VITAMIN D DEFICIENCY 5) EMPAGLIFLOZIN 25MG TAB TAKE ONE-HALF TABLET BY MOUTH ACTIVE ONCE A DAY FOR DIABETES 6) FLUTICAS 250/SALMETEROL 50 INHL DISK 60 INHALE 1 ACTIVE INHALATION ORAL INHALATION TWICE A DAY FOR COPD (OPEN DISKUS; CLICK ONLY ONCE; MAY INHALE TWICE TO COMPLETE DOSE; CLOSE WHEN FINISHED) RINSE MOUTH AND SPIT AFTER EACH USE. 7) FLUTICASONE PROP 50MCG 120D NASAL INHL INSTILL 1 ACTIVE SPRAY IN NOSTRIL(S) EVERY MORNING (MUST BE USED DIRECTED FOR MINIMUM OF 21 DAYS TO PROVIDE ADEQUATE BENEFITS) 8) FUROSEMIDE 40MG TAB TAKE ONE TABLET BY MOUTH EVERY ACTIVE MORNING FOR FLUID RETENTION (EDEMA) 9) PANTOPRAZOLE NA 40MG EC TAB TAKE ONE TABLET BY MOUTH ACTIVE EVERY MORNING BEFORE A MEAL TAKE 30 MINUTES BEFORE MEAL(S) 10) ROSUVASTATIN CA 40MG TAB TAKE ONE-HALF TABLET BY ACTIVE MOUTH EVERY EVENING 11) TIOTROPIUM 2.5MCG/ACTUAT 60D ORAL INHL INHALE 2 ACTIVE INHALATIONS ORAL INHALATION ONCE A DAY FOR COPD (ADMINISTER AT SAME TIME EACH DAY) Active Non-VA Medications Status 1) Non-VA ALBUTEROL 90MCG (CFC-F) 200D ORAL INHL 1 PUFF ACTIVE BY ORAL INHALATION FOUR TIMES A DAY NEEDED 2) Non-VA DOCUSATE NA 100MG CAP 100MG BY MOUTH TWICE A ACTIVE DAY 3) Non-VA HYOSCYAMINE SULFATE 0.125MG TAB 0.125MG BY ACTIVE MOUTH 4) Non-VA TIMOLOL MALEATE 0.5% OPH SOLN 1 DROP BOTH EYES ACTIVE TWICE A DAY 15 Total Medications All cardiac meds were reviewed with patient. See any change in Recommendation. Corrected Outpatient Medication List was provided to the patient. Allergy: Patient has answered NKA Family history: No premature coronary disease or sudden Social history: TOBACCO USE - quit ALCOHOL USE - quit COCCAINE - No Other receation drugs - No Review of systems: All systems reveiwed are negative except for HPI. Physical Exam: Vital: Temperature: 98 F [36.7 C] (02/27/2024 09:28) BP: 152/75 (02/27/2024 09:31) Pulse: 74 (02/27/2024 09:28) Resp: 20 (02/27/2024 09:28) Height: 73 in [185.4 cm] (02/07/2024 10:23) Weight:196.6 lb [89.18 kg] (02/27/2024 09:28) BMI: 26.0 General: Patient is in no acute distress. HEENT: No xanthelasma or oral mucosa cyanosis Neck: supple, no jugular vein distention Respiratory: Patient breaths comfortable. Lung is clear to auscultation. No crackles and wheezing. Cardiovascular: The point of maximal impact is not displaced. Heart has regular rate and rhythm. normal S1 and S2. No murmurs, rubs or gallops. Abdomen: soft, no tenderness or masses. No [...] CARBON DIOXIDE 35 H mEq/L 11/02/2023 12:47 EKG was personally reviewed and showed sinus rhythm. No LVH. No pathologic Q's. No significant ST-T abnormalities. Echo: EF 60%, mild LVH, mild tricuspid regurg, RVSP 49. Assessment: #heart failure with preserved ejection fraction - clinically stable since his recent hospitalization - currently on Jardiance 12.5 mg daily and Lasix 40 mg daily - no signs of volume overload in clinic today Recommendation: 1. Patient is doing stable from cardiac standpoint view. No need for further cardiac follow up unless patient's condition worsens. 2. Continue Jardiance and Lasix as currently prescribed. . Other issues per primary care team. Thank you for referring. Please feel free to contact me if you have any questions. RTC: none Total time spent on this encounter is 35 min Funmilayo Dorado DO Internal Medicine PGY-2 Cardiology Clinic Note /day/ Funmilayo Dorado D.O. Resident Physician Signed: 02/27/2024 10:21 /day/ MELVIN ROMERO MD,[facility] STAFF VENDOR ANALYST Cosigned: 02/27/2024 11:44 02/27/2024 ADDENDUM STATUS: COMPLETED I saw, interviewed and examined Mr. Carballo with the Medicine Resident Physician Dr. Funmilayo Dorado on FEB 27, 2024. I have reviewed the pt's clinical data including the ECG's, stress, cath and Echo. I have reviewed Dr. Funmilayo Dorado's note and agree with the history, physical findings and the initial assessment and plan. PATRICK CARBALLO has chronic diastolic CHF and pulmonary hypertension. He is doing stable from cardiac standpoint on current regimen. No active issues to follow up in cardiology clinic. 45 min is spent on this encounter /day/ MELVIN ROMERO MD,[facility] STAFF VENDOR ANALYST Signed: 02/27/2024 11:46 FUNMILAYO DORADO [facility]
--- OUTSIDE RECORDS SUMMARY | 2024-09-01 12:56 | XMS_ITS | Encounter Summary ---
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 Name Role Phone COLBY HERNANDEZ Primary Care Provider Unavail le Insurance Providers: [...] Mullen's Name Patient's Relationship to Policy Mullen [facility] (WNR) MEDICARE ADVANTAGE [facility] (WNR) Jun 05, 2022 [id number] Robel CARBALLO PATIENT [facility] (WNR) MEDICARE ADVANTAGE [facility] (WNR) Jun 05, 2022 [id number] Robel CARBALLO PATIENT [facility] (WNR) MEDICARE ADVANTAGE MCR (WNR) Jun 05, 2022 [id number] Robel CARBALLO PATIENT Selected Encounter This section includes the information on record at [place] for the Encounter. Date/Time Encounter Type Encounter Description Reason Provider Source Aug 20, 2024 02:00 PM Outpatient Encounter CARDIO-PULM REHAB ICD-10-CM J44.9 Chronic obstructive pulmonary disease, unspecified MIKE QUEEN Encounter Template Text not used by [place] Assessments - Encounter Diagnoses This section includes the primary and secondary diagnoses documented for the Encounter. Date/Time Primary/Secondary Diagnosis Diagnosis Name Provider Source Aug 20, 2024 05:44 PM PRIMARY Chronic obstructive pulmonary disease, unspecified MIMA QUEEN [facility] Plan of Treatment: Future Appointments (+ 6 months) and Future Tests (+/- 45 days) The Plan of Treatment section includes future care activities for the patient from all [place] [facility] This section includes future appointments and future orders which are active, pending or scheduled. Future Appointments This section includes appointments that were scheduled to occur 6 months from the date of the Encounter, up to a maximum of 20 appointments. The data comes from all [place] treatment [facility]. Appointment Date/Time Appointment Type Appointme nt Facility Name Aug 22, 2024 01:00 PM AMBULATORY - REHAB MEDICIN E [facility] Aug 22, 2024 02:00 PM AMBULATORY - PSYCHIATRY [facility] Aug 27, 2024 01:00 PM AMBULATORY - REHAB MEDICIN E [facility] Aug 29, 2024 01:00 PM AMBULATORY - REHAB MEDICIN E [facility] Aug 29, 2024 02:00 PM AMBULATORY - NONE [facility] Sep 03, 2024 01:00 PM AMBULATORY - REHAB MEDICIN E [facility] Sep 03, 2024 02:00 PM AMBULATORY - REHAB MEDICIN E [facility] Sep 05, 2024 01:00 PM AMBULATORY - REHAB MEDICIN E [facility] Sep 05, 2024 02:00 PM AMBULATORY - PSYCHIATRY [facility] Sep 10, 2024 01:00 PM AMBULATORY - REHAB MEDICIN E [facility] Sep 12, 2024 01:00 PM AMBULATORY - REHAB MEDICIN E [facility] Sep 12, 2024 02:00 PM AMBULATORY - NONE [facility] Sep 17, 2024 01:00 PM AMBULATORY - REHAB MEDICIN E [facility] Sep 17, 2024 02:00 PM AMBULATORY - REHAB MEDICIN E [facility] Sep 19, 2024 01:00 PM AMBULATORY - REHAB MEDICIN E [facility] Sep 19, 2024 02:00 PM AMBULATORY - PSYCHIATRY [facility] Sep 24, 2024 01:00 PM AMBULATORY - REHAB MEDICIN E [facility] Sep 26, 2024 01:00 PM AMBULATORY - REHAB MEDICIN E [facility] Sep 26, 2024 02:00 PM AMBULATORY - NONE [facility] Oct 01, 2024 01:00 PM AMBULATORY - REHAB MEDICIN E [facility] Active, Pending, and Scheduled Orders This section includes a listing of several types of active, pending, and scheduled orders, including clinic medications orders, diagnostic test orders, procedure orders and consult orders; where the start date of the order is 45 days before the date of the Encounter or 45 days after the date of theEncounter. The data comes from all [place] treatment facilities. Test Date/Time Test Type Test Details Facility Name Aug 14, 2024 12:37 PM Consult Order ENDO THYRO ID DISEASE OUTPATIENT [facility] Lab Results: +/- 30 days of the encounter This section includes the Chemistry and Hematology Lab Results on record with [place] for the patient. Radiology Reports and Pathology Reports are provided separately, in subsequent sections. Lab Results This section contains the Chemistry/Hematology Results that were resulted 30 days before or 30 daysafter the date of the Encounter. Date/Time Source Result Type Result - Unit Interpretation Reference Range Comment Aug 14, 2024 05:53 PM [facility] RESPIRATORY PCR PANEL Specimen Type: NASOPHARYNX Comment: The [facility] RP Panel combines nested multiplex PCR and [...] the clinician evaluating the patient. Masoud TIPTON, (154) Ordering Provider: COLBY HERNANDEZ Report Released Date/Time: Aug 14, 2024 10:22 AM Reporting Lab: [address] [address] Performing Lab: [address] [address] *Adenovirus (BF) Not Detected Not Detected *Coronavirus [...] Not Detected Aug 01, 2024 09:13 AM [facility] TOTAL T3 (STL-PB) Specimen Type: PLASMA No comment entered. Ordering Provider: COLBY HERNANDEZ Report Released Date/Time: Jul 30, 2024 01:22 PM Reporting Lab: [address] [address] Performing Lab: [address] [address] TOTAL T3 (STL-PB) 119.24 ng/dL 58-159 Jul 23, 2024 11:16 AM [facility] MICRAL/CREAT PROFILE (STL) Specimen Type: URINE No comment entered. Ordering Provider: COLBY HERNANDEZ Report Released Date/Time: Jul 16, 2024 02:46 PM Reporting Lab: [facility] [address] [address] Performing Lab: [address] [address] URINE ALBUMIN (PB-STL) 6.3 mg/L uACR (STL) 19 mg/g 0-29 CREATININE URINE/OTHERS 33.7 mg/dL L 63-166 Jul 23, 2024 11:03 AM [facility] ALPHA-1 ANTITRYPSIN (STL-PB) Specimen Type: PLASMA No comment entered. Ordering Provider: INGRID VILLARREAL Report Released Date/Time: Jul 23, 2024 10:40 AM Reporting Lab: [address] [address] Performing Lab: [address] [address] ALPHA-1 ANTITRYPSIN (L-PB) 230 mg/dL H 84-200 Jul 23, 2024 11:03 AM [facility] LIPID PANEL (L) Specimen Type: PLASMA Comment: No hemolysis noted. Ordering Provider: COLBY HERNANDEZ Report Released Date/Time: Jul 16, 2024 02:46 PM Reporting Lab: [address] [address] Performing Lab: [address] [address] CHOLESTEROL 94 mg/dL 0-200 TRIGLYCERIDE 112 mg/dL 0-150 CALCULATED LDL 40 mg/dL HDL(New) 32 mg/dL L >40 Jul 23, 2024 11:03 AM [facility] COMPREHENSIVE METABOLIC PANEL Specimen Type: PLASMA Comment: No hemolysis noted. Ordering Provider: COLBY HERNANDEZ Report Released Date/Time: Jul 16, 2024 02:46 PM Reporting Lab: [address] [address] Performing Lab: [address] [address] CREATININE 0.90 mg/dL 0.7-1.3 UREA NITROGEN 16.8 [...] 88.5 >60 Jul 23, 2024 11:03 AM [facility] HGA1C Specimen Type: BLOOD No comment entered. Ordering Provider: COLBY HERNANDEZ Report Released Date/Time: Jul 16, 2024 02:46 PM Reporting Lab: [address] [address] Performing Lab: [address] [address] HGA1C 6.2 H 4.0-6.0 Jul 23, 2024 11:03 AM [facility] TSH W/ REFLEX FT4 (STL) Specimen Type: PLASMA No comment entered. Ordering Provider: COLBY HERNANDEZ Report Released Date/Time: Jul 16, 2024 02:46 PM Reporting Lab: [address] [address] Performing Lab: [address] [address] TSH 0.052 u[IU]/mL L 0.47-5 FREE T4(REFLEX) 1.27 ng/mL 0.7-1.48 Jul 23, 2024 11:03 AM [facility] CBC Specimen Type: BLOOD No comment entered. Ordering Provider: COLBY HERNANDEZ Report Released Date/Time: Jul 16, 2024 02:46 PM Reporting Lab: [address] [address] Performing Lab: [address] [address] WBC 8.4 10*3/uL 3.6-11.2 RBC 5.34 10*6/uL [...] NORMRBC Yes Jul 23, 2024 11:03 AM [facility] IMMUNOGLOBULIN E Specimen Type: SERUM Comment: Test Performed by [facility], [address] [place] [address] Bnadar De La Garza M.D., Ph.D., Director of Laboratories , [facility] [id number] Ordering Provider: INGRID VILLARREAL Report Released Date/Time: Jul 23, 2024 10:40 AM Reporting Lab: [facility] [address] [facility] [address] Performing Lab: [address] IMMUNOGLOBULIN E 52 kU/L <=114 Vital Signs: All taken on the encounter date This section contains inpatient and outpatient Vital Signs collected on the date of the Encounter. Date/Time Temperature Pulse Blood Pressure Respiratory Rate SP02 Pain Height Weight Body Mass Index Source Aug 20, 2024 01:00 PM 64 147/71 95 [facility] Radiology Reports: +/- 30 days [...] the Encounter. The data comes from all [place] treatment facilities. Date/Time Radiology Report Provider Source Jul 23, 2024 10:46 AM CHEST X-RAY, 2 VIE WS: PATRICK CARBALLO [id number] -[id number] M Ex Date: JUL 23, 2024@10:46 Req Phys: NIKO VILLARREAL Loc: [facility] (Req'g Img Loc: -MAIN RADIOLOGY SUITE Service: [address] [address] (Case [id number] COMPLETE) CHEST X-RAY, 2 VIEWS (RAD Detailed) CPT:78522 Reason for Study: pleural effusion Clinical History: hx of pleural effusion Report Status: Verified Date Reported: JUL 24, 2024 Date Verified: JUL 24, 2024 Powder Core Tester E-Sig:/ELKE/HAYDER BOWMAN Report: CHEST X-RAY, 2 VIEWS COMPARISON: 01/12/2024. HISTORY: pleural effusion FINDINGS: Heart size unchanged. Hyperinflation and other chronic findings. There is no consolidating infiltrate, effusion or pneumothorax. Impression: No active lung disease. RR Primary Interpreting Staff: HAYDER BOWMAN, Staff Physician (Powder Core Tester) /HAYDER PATEL [facility] Encounter Notes: All associated encounter notes This section contains the clinical notes associated to the Encounter. Date/Time Encounter Note(s) Provider Source Aug 20, 2024 05:40 PM CARDIOPULMONARY REHABILITATION NOTE: LOCAL TITLE: [facility] STANDARD TITLE: CARDIOPULMONARY REHABILITATION NOTE DATE OF NOTE: AUG 20, 2024@17:40 ENTRY DATE: AUG 20, 2024@17:40:13 AUTHOR: MIMA QUEEN COSIGNER: URGENCY: STATUS: COMPLETED Learning Assessment: Patient/Caregiver appeared ready for instruction (good eye contact, appropriate questions, active participation, etc.) Person(s) who received education: Patient Education Topic/Teaching Needs: Disease/Condition How the lungs work and lung disease Methods used included: Video: [place]: How Lungs Work Handout: [facility]: How your lungs work, [facility]: What is COPD? Oral: Topic Review: Q & A Group Education: Name of Class/Group: Carp Demonstration: 3D-airway model Teaching outcomes: Good level of understanding Able to explain regan concepts /elke/ MIMA QUEEN RN,BSN REGISTERED NURSE Signed: 08/20/2024 17:44 MIMA QUEEN [facility]
--- OUTSIDE RECORDS SUMMARY | 2024-09-01 12:57 | XMS_ITS | Encounter Summary ---
Author Name [facility] Organization [facility] [place] Address [address] [place] [id number] Care Team Providers Care Breaker Layer Name Role Phone COLBY HERNANDEZ Primary Care [...] Mullen's Name Patient's Relationship to Policy Mullen [facility] (WNR) MEDICARE ADVANTAGE [facility] (WNR) Jun 05, 2022 [id number] Robel COLON PATIENT [facility] (WNR) MEDICARE ADVANTAGE [facility] (WNR) Jun 05, 2022 [id number] Robel COLON PATIENT [facility] (WNR) MEDICARE ADVANTAGE [facility] (WNR) Jun 05, 2022 [id number] Robel COLON PATIENT Selected Encounter This section includes the information on record at [place] for the Encounter. Date/Time Encounter Type Encounter Description Reason Provider Source Aug 15, 2024 11:00 AM SELF CARE MNGMENT TRAINING PHYSICAL THERAPY ICD-10-CM J44.9 Chronic obstructive pulmonary disease, unspecified DINA TODD Encounter Template Text not used by [place] Assessments - Encounter Diagnoses This section includes the primary and secondary diagnoses documented for the Encounter. Date/Time Primary/Secondary Diagnosis Diagnosis Name Provider Source Aug 16, 2024 08:42 AM PRIMARY Chronic obstructive pulmonary disease, unspecified DINA TODD [facility] Plan of Treatment: Future Appointments (+ 6 months) and Future Tests (+/- 45 days) The Plan of Treatment section includes future care activities for the patient from all [place] treatmentpeacehealthities. This section includes future appointments and future orders which are active, pending or scheduled. Future Appointments This section includes appointments that were scheduled to occur 6 months from the date of the Encounter, up to a maximum of 20 appointments. The data comes from all [place] treatment [facility]. Appointment Date/Time Appointment Type Appointme nt Facility Name Aug 20, 2024 01:00 PM AMBULATORY - REHAB MEDICIN E [facility] Aug 20, 2024 02:00 PM AMBULATORY - REHAB MEDICIN E [facility] Aug 22, 2024 01:00 PM AMBULATORY - REHAB MEDICIN E [facility] Aug 22, 2024 02:00 PM AMBULATORY - PSYCHIATRY [facility] Aug 27, 2024 01:00 PM AMBULATORY - REHAB MEDICIN E [facility] Aug 29, 2024 01:00 PM AMBULATORY - REHAB MEDICIN E [facility] Aug 29, 2024 02:00 PM AMBULATORY - NONE [facility] Sep 03, 2024 01:00 PM AMBULATORY - REHAB MEDICIN E [facility] Sep 03, 2024 02:00 PM AMBULATORY - REHAB MEDICIN E [facility] Sep 05, 2024 01:00 PM AMBULATORY - REHAB MEDICIN E [facility] Sep 05, 2024 02:00 PM AMBULATORY - PSYCHIATRY [facility] Sep 10, 2024 01:00 PM AMBULATORY - REHAB MEDICIN E [facility] Sep 12, 2024 01:00 PM AMBULATORY - REHAB MEDICIN E [facility] Sep 12, 2024 02:00 PM AMBULATORY - NONE [facility] Sep 17, 2024 01:00 PM AMBULATORY - REHAB MEDICIN E [facility] Sep 17, 2024 02:00 PM AMBULATORY - REHAB MEDICIN E [facility] Sep 19, 2024 01:00 PM AMBULATORY - REHAB MEDICIN E [facility] Sep 19, 2024 02:00 PM AMBULATORY - PSYCHIATRY [facility] Sep 24, 2024 01:00 PM AMBULATORY - REHAB MEDICIN E [facility] Sep 26, 2024 01:00 PM AMBULATORY - REHAB MEDICIN E [facility] Active, Pending, and Scheduled Orders This section includes a listing of several types of active, pending, and scheduled orders, including clinic medications orders, diagnostic test orders, procedure orders and consult orders; where the start date of the order is 45 days before the date of the Encounter or 45 days after the date of theEncounter. The data comes from all [place] treatment facilities. Test Date/Time Test Type Test Details Facility Name Aug 14, 2024 12:37 PM Consult Order ENDO THYRO ID DISEASE OUTPATIENT [facility] Cons Administrative Technician's Choice [facility] Lab Results: +/- 30 days of the encounter This section includes the Chemistry and Hematology Lab Results on record with [place] for the patient. Radiology Reports and Pathology Reports are provided separately, in subsequent sections. Lab Results This section contains the Chemistry/Hematology Results that were resulted 30 days before or 30 daysafter the date of the Encounter. Date/Time Source Result Type Result - Unit Interpretation Reference Range Comment Aug 14, 2024 05:53 PM [facility] RESPIRATORY PCR PANEL Specimen Type: NASOPHARYNX Comment: The [employer] RP Panel combines nested multiplex PCR and [...] the clinician evaluating the patient. Masoud TIPTON, (686) Ordering Provider: COLBY HERNANDEZ Report Released Date/Time: Aug 14, 2024 10:22 AM Reporting Lab: [address] [address] Performing Lab: [address] [address] *Adenovirus (BF) Not Detected Not Detected *Coronavirus [...] Not Detected Aug 01, 2024 09:13 AM [facility] TOTAL T3 (STL-PB) Specimen Type: PLASMA No comment entered. Ordering Provider: COLBY HERNANDEZ Report Released Date/Time: Jul 30, 2024 01:22 PM Reporting Lab: [address] [address] Performing Lab: [address] [address] TOTAL T3 (STL-PB) 119.24 ng/dL 58-159 Jul 23, 2024 11:16 AM [facility] MICRAL/CREAT PROFILE (STL) Specimen Type: URINE No comment entered. Ordering Provider: COLBY HERNANDEZ Report Released Date/Time: Jul 16, 2024 02:46 PM Reporting Lab: [place] [id number] [place] [id number] Performing Lab: [address] [address] URINE ALBUMIN (PB-STL) 6.3 mg/L uACR (STL) 19 mg/g 0-29 CREATININE URINE/OTHERS 33.7 mg/dL L 63-166 Jul 23, 2024 11:03 AM [facility] ALPHA-1 ANTITRYPSIN (STL-PB) Specimen Type: PLASMA No comment entered. Ordering Provider: INGRID VILLARREAL Report Released Date/Time: Jul 23, 2024 10:40 AM Reporting Lab: [address] [address] Performing Lab: [address] [address] ALPHA-1 ANTITRYPSIN (STL-PB) 230 mg/dL H 84-200 Jul 23, 2024 11:03 AM [facility] LIPID PANEL (L) Specimen Type: PLASMA Comment: No hemolysis noted. Ordering Provider: COLBY HERNANDEZ Report Released Date/Time: Jul 16, 2024 02:46 PM Reporting Lab: [address] [address] Performing Lab: [address] [address] CHOLESTEROL 94 mg/dL 0-200 TRIGLYCERIDE 112 mg/dL 0-150 CALCULATED LDL 40 mg/dL HDL(New) 32 mg/dL L >40 Jul 23, 2024 11:03 AM [facility] COMPREHENSIVE METABOLIC PANEL Specimen Type: PLASMA Comment: No hemolysis noted. Ordering Provider: COLBY HERNANDEZ Report Released Date/Time: Jul 16, 2024 02:46 PM Reporting Lab: [address] [address] Performing Lab: [address] [address] CREATININE 0.90 mg/dL 0.7-1.3 UREA NITROGEN 16.8 [...] 88.5 >60 Jul 23, 2024 11:03 AM [facility] HGA1C Specimen Type: BLOOD No comment entered. Ordering Provider: COLBY HERNANDEZ Report Released Date/Time: Jul 16, 2024 02:46 PM Reporting Lab: [address] [address] Performing Lab: [address] [address] HGA1C 6.2 H 4.0-6.0 Jul 23, 2024 11:03 AM [facility] TSH W/ REFLEX FT4 (STL) Specimen Type: PLASMA No comment entered. Ordering Provider: COLBY HERNANDEZ Report Released Date/Time: Jul 16, 2024 02:46 PM Reporting Lab: [address] [address] Performing Lab: [address] [address] TSH 0.052 u[IU]/mL L 0.47-5 FREE T4(REFLEX) 1.27 ng/mL 0.7-1.48 Jul 23, 2024 11:03 AM [facility] CBC Specimen Type: BLOOD No comment entered. Ordering Provider: COLBY HERNANDEZ Report Released Date/Time: Jul 16, 2024 02:46 PM Reporting Lab: [address] [address] Performing Lab: [address] [place] [address] WBC 8.4 10*3/uL 3.6-11.2 RBC 5.34 10*6/uL [...] NORMRBC Yes Jul 23, 2024 11:03 AM [facility] IMMUNOGLOBULIN E Specimen Type: SERUM Comment: Test Performed by [facility], [address] [place] [address] Bandar De La Garza M.D., Ph.D., Director of Laboratories , [place] [id number] Ordering Provider: INGRID VILLARREAL Report Released Date/Time: Jul 23, 2024 10:40 AM Reporting Lab: [facility] [address] [place] [address] Performing Lab: [facility] [id number] [place] [address] IMMUNOGLOBULIN E 52 kU/L <=114 Vital Signs: All taken on the encounter date This section contains inpatient and outpatient Vital Signs collected on the date of the Encounter. Date/Time Temperature Pulse Blood Pressure Respiratory Rate SP02 Pain Height Weight Body Mass Index Source Aug 15, 2024 01:00 PM 73 112/64 95 [facility] Radiology Reports: +/- [...] the Encounter. The data comes from all [place] treatment facilities. Date/Time Radiology Report Provider Source Jul 23, 2024 10:46 AM CHEST X-RAY, 2 VIE WS: PATRICK COLON [id number] -[id number] M Ex Date: JUL 23, 2024@10:46 Req Phys: NIKO VILLARREAL Loc: [facility] (Req'g Img Loc: -MAIN RADIOLOGY SUITE Service: [address] [address] (Case [id number] COMPLETE) CHEST X-RAY, 2 VIEWS (RAD Detailed) CPT:54953 Reason for Study: pleural effusion Clinical History: hx of pleural effusion Report Status: Verified Date Reported: JUL 24, 2024 Date Verified: JUL 24, 2024 Car E-Sig:/ELKE/HAYDER BOWMAN Report: CHEST X-RAY, 2 VIEWS COMPARISON: 01/12/2024. HISTORY: pleural effusion FINDINGS: Heart size unchanged. Hyperinflation and other chronic findings. There is no consolidating infiltrate, effusion or pneumothorax. Impression: No active lung disease. RR Primary Interpreting Staff: HAYDER BOWMAN, Staff Physician (Car) /HAYDER PATEL [facility] Encounter Notes: All associated encounter notes This section contains the clinical notes associated to the Encounter. Date/Time Encounter Note(s) Provider Source Aug 15, 2024 03:34 PM PHYSICAL THERAPY N OTE: LOCAL TITLE: PT ASSESSMENT STL STANDARD TITLE: PHYSICAL THERAPY NOTE DATE OF NOTE: AUG 15, 2024@15:34 ENTRY DATE: AUG 15, 2024@15:34:14 AUTHOR: DINA TODD EXP COSIGNER: URGENCY: STATUS: COMPLETED RUI PT SESSION Per Dr. Ricky FABIAN Consult dated 08/01/24 Mr. Colon is referred by the pulmonary clinic and see their notes for full detials. Briefly, he is a 74-year-old man with severe COPD (FEV1 of 1.00 liters - 2*% predicted) requiring continuous supplemental oxygen. He was admitted to admitted to [facility] in July 2023 with acute respiratory failure attributed to pneumonia and an exacerbation of his heart failure with preserved ejection fraction. He suffered a NSTEMI in June 2024 with subsequent stenting of the RCA. He states that he remains dyspneic on walking approximately one half block and has difficulty walking a flight of steps and showering. He uses his albuterol inhaler 2-3 times per day. He has a cough productive of several tablespoons of clear sputum per day. He denies any orthopnea or PND. His weight has been stable. Other medical problems include heart failure with preserved ejection fraction, obstructive sleep apnea (intermittently compliant with CPAP), carotid artery disease status post right carotid endarterectomy in 2011, glaucoma, and diabetes. He worked in a [employer]. 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 He quit smoking in April 2023 after approximately [id number] smoking history. Treatment time: 95 mins. PT evaluation 20 mins 1x [id number] 1:1 Education: 30 mins 2x [id number] Physical performance Test/Measurement 1x self care Rehab Service: [] Cardiac [x]Pulmonary Referring provider: Dr. Sung García Diagnosis: Other specified chronic obstructive pulmonary disease(ICD-10-CM J44.89) PT Eval Date: 08/15/24 RUI start Date: 08/15/24 PT Re-evaluation /PN Date: 09/15/24 # of sessions: 1 Height - 73 in [185.4 cm] (05/07/2024 09:52) Weight - 202 lb [91.63 kg] (08/14/2024 09:53) PMH: 1) HTN - Hypertension ([facility] [id number]) 2) GERD - Gastro-Esophageal Reflux Disease ([facility] [id number]) 3) Constipation ([facility] [id number]) 4) Prostate cancer 5) Chronic obstructive lung disease 6) Carotid Artery Stenosis ([facility] [id number]) 7) Glaucoma 8) Prediabetes 9) Vitamin D Deficiency ([facility] [id number]) 10) Exposure to potentially hazardous substance 11) Obstructive Sleep Apnea of Adult ([facility] [id number]) 12) Chronic diastolic heart failure 13) CAD - Coronary Artery Disease ([facility] [id number]) Subjective: Pt. reports feeling better, no longer feely achy or fatigued comapred to yesterday. Has L knee pain at baseline, but doesn't limit activity. Reports indegestion like pain lying down at night and sometimes at rest, lasts hours and resolves on its own. Does report the pain feels similar to the chest pain felt with NSTEMI in June - varying intensity. Pain: mild pain L knee, none at rest. Current Exercise Regimen: kareem quevedo (previous [place] member) Available Equipment: None. -Communication: [x]Normal []Aphasia []non-verbal []Able to communicate needs -Vision: [x]Normal []Impaired []Blind []Wears reading glasses Home Set Up: Lives alone multistory condo, 2+1 [address], 7+7 to upstairs (bedroom and bathroom). Also has basement. Has tub/shower combo, declines the need for DME at this time. Prior Level Of Function: FUNCTIONAL ABILITY: -Eating: [x]I []MOD I []SBA []NEEDS ASSISTANCE -Grooming:[x]I []MOD I []SBA []NEEDS ASSISTANCE -Bathing: [x]I []MOD I []SBA []NEEDS ASSISTANCE comments: -UE Dressing: [x]I []MOD I []SBA []NEEDS ASSISTANCE -LE Dressing:[x]I []MOD I []SBA []NEEDS ASSISTANCE -Toileting: [x]I []MOD I []SBA []NEEDS ASSISTANCE -Transfer - Bed, Chair, W/C: [x]I []MOD I []SBA []NEEDS ASSISTANCE -Transfer - Toilet: [x]I []MOD I []SBA []NEEDS ASSISTANCE -Transfer - Tub, Shower: [x]I []MOD I []SBA []NEEDS ASSISTANCE IADLS/HOME MGMT SKILLS: -Meal Prep: [x](I) []dependent []provided by: -Laundry: [x](I) []dependent []provided by: -Transportation: [x](I) []dependent []provided by: -Medication Mgmt: [x](I) []dependent []provided by: []Description for med mgmt: MOBILITY: -Home Mobility: [x]I []MOD I []SBA []NEEDS ASSISTANCE Device: -Community Mobility: [x]I []MOD I []SBA []NEEDS ASSISTANCE Device: -Stairs: [x]I []MOD I []SBA []NEEDS ASSISTANCE Falls: Denies Equipment: CPAP, BP Monitor, LH brush Glen Ullin's goals for CARP program: reduce dyspnea with stair climbing (SOBQ 4 Severe ) Objective: Vet arrived in the clinic ambulatory without an AD in NAD, on 3L pulsed portable concentrator placed on telemetry monitoring for evaluation. Vital signs: BP HR SpO2- 3 L/min pulsed pre activity 129/60 60 92 Cognition: Answers questions appropriately AROM: Grossly WFL throughout extremities Strength: Grossly functional and symmetrical Sensation: Paresthesia to b/l feet, reports increased foot sensitivity. Gait: Pt ambulates indep w/o an assistive device. Lakesha and path WNL. Outcome measures: Barakat Activity Status index: 1. Are you able to take care of yourself, that is, eating, dressing, bathing, or using the toilet? _x_Y __N Weight 2.75 2. Are you able to walk indoors, such as around the house? _x_Y __N Weight 1.75 3. Are you able to walk a block or two on level ground? _x_Y __N Weight 2.75 4. Are you able to climb a flight of stairs or walk up a hill without stopping? _x_Y __N Weight 5.50 5. Are you able to run a short distance? __Y x__N Weight 8.00 6. Are you able to do light work around the house like dusting or washing dishes? _x_Y __N Weight 2.70 7. Are you able to do moderate work around the house like Vacuuming, sweeping floors, or carrying groceries? _x_Y __N Weight 3.50 8. Are you able to do heavy work around the house like scrubbing floors, or lifting or moving heavy furniture? __Y _x_N Weight 8.00 9. Are you able to do yard work like raking leaves, weeding, or pushing a power mower? __Y _x_N Weight 4.50 10. Are you having sexual relations? __Y _x_N Weight 5.25 11. Are you able to participate in moderate recreational activities like golf, bowling, dancing, double tennis, or throwing a baseball or football. __Y _x_N Weight 6.00 12. Are you able to participate in strenuous sports like swimming, singles tennis, football, basketball, or skiing? __Y _x_N Weight 7.50 Initial Scores: Total DASI score= 18.95 Calculated GD6rgmk= 17.75 mL/kg/min Calculated functional capacity= 5.07 METS Hcdjbqxta-zc-Dwceag Questionnaire Please rate the shortness of breath you experience when you do, or if you were to do, each of the following tasks. Do not skip any items. If youve never done a task or no longer do it, give your best guess of the shortness of breath you would have while doing that activity. When I do, or if I were to do, the following tasks, I would rate my shortness of breath as: 0 None at all 1 2 3 4 Severe 5 Maximum or unable to do because of shortness of breath EVAL D/C 1. At rest 1 2. Walking on a level at your own pace 2 3. Walking on a level with others your age 3 4. Walking up a hill 4 5 Walking up stairs 4 6. While eating 2 7. Standing up from a chair 2 8. Brushing teeth 1 9. Shaving and/or brushing hair 1 10. Showering/bathing 2 11. Dressing 3 12. Picking up and straightening 3 13. Doing dishes 1 14. Sweeping /vacuuming 3 15. Making bed 2 16. Shopping 3 17. Doing laundry 2 18. Washing car 3 19. Mowing lawn 5 20. Watering lawn 2 21. Sexual activities 4 How much do these limit you in your daily life? 22. Shortness of breath 4 23. Fear of hurting myself by overexerting 4 24. Fear of shortness of breath 3 Total Eval: 64 Short Physical Performance Battery (SPPB): -5 times sit to stand (arms folded across chest): Eval: 17.86 sec. 1 Pts. D/c: sec. Pts. -4 Meter walk test Eval: trial #1 4.56 sec. no walking aid trial #2 4.15 sec. no walking aid 4 Points D/c: trial #1 sec. no walking aid trial #2 sec. no walking aid Points - balance 10 secs feet side by side Eval: 1 D/c: 10 sec semi-tandem stand Eval: 1 D/c: 10 sec tandem stand Eval: 2 D/c: TOTAL POINTS Eval: 9/12 POINTS Reported NOELLE _14_/20 and dyspnea _4_/10 with the above activities D/C: /12 POINTS Reported NOELLE __/20 and dyspnea __/10 with the above activities 4-6 points = Relative risk of 4.2 to develop ADL-related disability in 4-year period/high risk of mortality, long term admission, hospitalization, incidence of disability. 7-9 points = Relative risk of 1.6 to develop ADL-related disability in 4-year period/moderate risk of mortality, long term admission, hospitalization, incidence of disability. 10-12 points = Low risk of developing ADL-related disability in 4-year period/moderate risk of mortality, long term admission, hospitalization, incidence of disability. Community-Dwelling Older Adults: (Kymberly et al., 2009; n = 542; completed mean age = 71.6 (5.1) years; failed/unable mean age = 77.7 (6.9) years) Score of =10 indicates increased risk of mobility disability at follow-up Community-Dwelling Older Adults: (Destiny et al., 2016; n = 16,534; mean age = 73 (3) years; inpatient and outpatient; meta-analysis) Score of <10 is predictive of all-cause mortality 30-Second Chair Stand Test Purpose: Assess leg strength and endurance, as well as risk for recurrent falls TOTAL: 8 INTERPRETATION: pt c/decreased muscular power and endurance *Listed are averages for men & women of a specific age group. Less than the stated average indicates increased risk for falls. AGE MEN WOMEN 60-64 <14 <12 65-69 <12 <11 70-74 <12 <10 75-79 <11 <10 80-84 <10 <9 85-89 <8 <8 90-94 <7 <4 6-minute Walk Test (6MWT) Total Ambulation Distance: 1185 ft Assistive Device Used: none Stopped Prior to 6 Minute: No Reason for early termination: n/a Symptoms present at conclusion of test: chest pressure , reports feels light resolved with rest. Did not report during test. Number of stops: 0 Blood Pressure Pre: 129/60 mmHg (auto) Blood Pressure Post: 174/76 mmHg (auto) O2 L/min: 3L (Pulsed) Oxygen Saturation Pre: 95 Oxygen Saturation Post: 92 Heart Rate Pre: 67 Heart Rate Post: 82 Max Heart Rate: 101 Rhythm: SR Dyspnea Pre: 2/10 Dyspnea Post: 5/10 NOELLE RPE Post: 15-16x/20 Community-dwelling Elderly: (Farshad et al, 2002; n = 96; community dwelling elderly people with independent function who were nonsmokers with no history of dizziness; > 60 yo and did not use assistive devices, Community-dwelling Elderly) Mean Distance in Meters by Age & Gender Age Male Female 60-69 yrs 572 m 538 m 70-79 yrs 527 m 471 m 80-89 yrs 417 m 392 m Pulmonary Disease: COPD MCID and MDC = 54 meters Self Care: Encouraged use of O2 to minimize dyspnea on exertion. Discussed ADL function with dyspnea during showering. Declines need for shower chair or additional LH equipment at this time. reports able to stand on 1 foot for foot inspection. Educated on daily preventative foot inspections. Declines LH mirror, shower chair and LH sponge. Made aware of purpose and benefits of DME if needed in the future. Education Comprehensive EDUCATION provided: given 1:1 instruction on: Discussed the purpose of the 6MWT to assess functional exercise capacity. What to expect during treatment sessions including first day. Intervals and purpose of monitoring of vital signs during exercise Aerobic and strength training components of the [facility] program and benefits of each Reviewed proper clothing (short sleeve or thin shirt for accurate BP monitoring) and footwear recommendations and what to bring when attending [facility] sessions. Reviewed the [facility] Exercise Orientation Booklet to include: -Different types of exercise and the components of the exercise portion of class (aerobic and strength training) to begin next session. -Monitoring and at what intervals during [facility] Exercise sessions -Purpose of warm up and cool down for aerobic exercise. -Self monitoring techniques for determining exertion: NOELLE RPE, modified noelle dyspnea, test for dyspnea -Warning signs/symptoms to terminate exercise chest pain/pressure, pain which radiates to the neck, jaw or arms, unusual shortness of breath, weakness, unusual sweating, lightheadedness or dizziness, and nausea or vomiting) Instructed to stop and alert staff immediately for evaluation. Glen Ullin's goals PT plan of care rationale of PT Individualized Treatment Plan: Exercise Assessment (x)Submax exercise test (x)Review of PLOF and Current Exercise Regimen (x)Exercise Plan (x)First Date of Exercise - Goals to be met by completion of 9 week program (x)Establish a home exercise program. (x)Demonstrate safe exercise. (x)Aerobic exercise 30 minutes per session, for a progressive total of 150 minutes per week. (x)Perform progressive strength training 2-3 times per week. (x) will be able to self-identify signs and symptoms of complications associated with exercise. (x)Identify cardiac complications associated with exercise. (x)Report chest pain or other serious symptoms to staff at time of occurrence. Interventions (x)Each exercise session will consist of warm-up exercises, followed by cardiovascular and strength training, concluding with cool-down stretching. (x)Glen Ullin will be monitored via telemetry for heart rate and rhythm. (x)Monitor and record oxygen saturation before, during, and after exercise session. (x)Monitor and record blood pressure before, during, and after exercise session. (x)Monitor cardiac and respiratory status for complications associated with exercise. (x)Measure estimated functional capacity using 6 Minute Walk Test. (x)Educational Classes- May include Basics to Exercise, Overcoming Barriers to Being Physically Active and Energy Conservation Exercise Prescription - Mode (x)NuStep / SciFit Recumbent Bike ()Arm Ergometer (x)Treadmill (x)Strength Training (Resistance Bands) Frequency 2 days per week, supervised in [facility] Duration 60 Minutes per session Intensity (based on Peak VO2) (x)Light to Moderate-Intensity ()Moderate to High-Intensity [place] demonstrated/verbalized/rec alled understanding of above education. Barriers to learning: [x]none []needs reinforcement []cognitive deficits []aphasia []low medical understanding []resistant to education [] Hard of Hearing Assessment: 74 y/o referred to [facility] with severe COPD and dyspnea on exertion. 06/29 NSTEMI c stent to RCA, 07/30 acute respiratory failure HFpEF and Severe COPD. Wears 3L pulsed with exertion, sometimes RA-3L at rest depending on symptoms. Sats 88-92% throughout eval on 3L pulsed including during 6MWT. Vet tolerated the assessment w/o difficulty reported light chest pressure following the 6MWT resolved with rest. Has occassional L knee pain, but did not impact performance on 6MWT this date. Baseline SPPB Score Indicates Relative risk of 1.6 to develop ADL-related disability in 4-year period/moderate risk of mortality, long term admission, hospitalization, incidence of disability. Baseline [place] Activity Status Index completed for estimated functional capacity of 5.07 METs . 6MWT completed with 0 stops using no device with estimated 9.59 VO2/ 2.74 METS . Baseline functional assessment of LE strength, endurance, gait speed and predicted VO2 peak. Appropriate for enrollment in CARP program to address symptom management, increase physical activity and improve QOL. Equipment Provided: Problems identified: [x] Impaired oxygen transport [x] Dyspnea at rest or with exertion [x] Decreased ability to perform self-care due to dyspnea [] Impaired ability to perform ADLs and IADLs without assistance/support/adaptive tools [] Decreased functional mobility [x] Impaired exertional tolerance [x] Decreased quality of life [x] Knowledge deficits regarding disease processes, safe exercise progression, & self monitoring techniques. Goals: Short term 4 weeks *Maintain 02 saturation 90% or greater with exertion *Pt to demonstrate a stable hemodynamic response to light exertion *Pt.to demonstrate ability to using NOELLE and dyspnea scale independently *Improve chronic disease state knowledge and self-care ability *Pt to tolerate aerobic and strength training work at 10-12/20 NOELLE senior care 8-9 weeks *Improve Health-Related Quality of Life Perceptions (RAND SF-36) *[place] to demonstrate working knowledge of safe exercise guidelines and principles for progression. *Pt to demonstrate improvement in submax exericse test by MCID *Pt to tolerate aerobic and strength training at 11-13/20 NOELLE *Pt will improve SOBQ by MCID of 5 units demonstrating improvement in shortness of breath severity during ADLs. Plan: Pt to begin CARP protocol on 08/15/24, twice a week for a total of 9 weeks, progressing as tolerated, and educating about safe exercise principles, self-care, and disease management. Monitor for signs/symptoms of ischemia or anginal equivalents. The patient presented with the following number of personal factors/comorbidities influencing the PT plan of care: -> chronicity of disease process -> prior level of function -> Intermittent CP -> chronic knee pain Total number of elements examined: -> cognition -> vitals -> ROM -> Strength -> functional mobility -> balance -> gait -> outcome measures: DASI, [facility] SOBQ, SPPB, 30 sec chair rise, 6MWT The patients CLINICAL PRESENTATION was: [] Stable and/or Uncomplicated: [x] Evolving Clinical Presentation with Changing Clinical Characteristics: Patient presents with complex medical history, including multiple advanced comorbidities related to the problem for which he's referred. [] Unstable and Unpredictable Characteristics: Therefore the level of complexity for this patient was: [] Low, [x] Moderate, [] High /es/ Dina Todd PT, DPT, CCS Cardio Pulm Clinical Spec Signed: 08/16/2024 08:42 DINA TODD [facility]
--- OUTSIDE RECORDS SUMMARY | 2024-09-01 12:57 | XMS_ITS | Encounter Summary ---
Author Name [facility] Address [address] [place] [address] Care Team Providers Care Battery Filler Name Role Phone COLBY HERNANDEZ Primary Care [...] Mullen's Name Patient's Relationship to Policy Mullen [facility] (WNR) MEDICARE ADVANTAGE [facility] (WNR) Jun 05, 2022 [id number] Robel CARBALLO PATIENT [facility] (WNR) MEDICARE ADVANTAGE [facility] (WNR) Jun 05, 2022 [id number] Robel CARBALLO PATIENT [facility] (WNR) MEDICARE ADVANTAGE [facility] (WNR) Jun 05, 2022 [id number] Robel CARBALLO PATIENT Selected Encounter This section includes the information on record at [place] for the Encounter. Date/Time Encounter Type Encounter Description Reason Provider Source Aug 05, 2024 10:00 AM OFF/OP CNSLTJ NEW/EST LOW 30 CARDIO-PULM REHAB ICD-10-CM J44.9 Chronic obstructive pulmonary disease, unspecified GERARDO WETZEL IHE Encounter Template Text not used by [place] Assessments - Encounter Diagnoses This section includes the primary and secondary diagnoses documented for the Encounter. Date/Time Primary/Secondary Diagnosis Diagnosis Name Provider Source Aug 05, 2024 11:04 AM PRIMARY Chronic obstructive pulmonary disease, unspecified GERARDO WETZEL [facility] Aug 05, 2024 11:04 AM SECONDARY Athscl heart disease of [place] coronary artery w/o ang pctrs GERARDO WETZEL [facility] Aug 05, 2024 11:04 AM SECONDARY Chronic diastolic (congestive) heart failure GERARDO WETZEL [facility] Plan of Treatment: Future Appointments (+ 6 months) and Future Tests (+/- 45 days) The Plan of Treatment section includes future care activities for the patient [facility] [place] [facility] This section includes future appointments and future orders which are active, pending or scheduled. Future Appointments This section includes appointments that were scheduled to occur 6 months from the date of the Encounter, up to a maximum of 20 appointments. The data comes from all [place] treatment facilities. Appointment Date/Time Appointment Type Appointme nt Facility Name Aug 06, 2024 09:00 AM AMBULATORY - REHAB MEDICIN E [facility] Aug 14, 2024 10:00 AM AMBULATORY - MEDICINE [facility] Aug 15, 2024 11:00 AM AMBULATORY - REHAB MEDICIN E [facility] Aug 15, 2024 01:00 PM AMBULATORY - REHAB MEDICIN [facility] Aug 15, 2024 02:00 PM AMBULATORY - NONE [facility] Aug 20, 2024 01:00 PM AMBULATORY - REHAB MEDICIN E [facility] Aug 20, 2024 02:00 PM AMBULATORY - REHAB MEDICIN [facility] Aug 22, 2024 01:00 PM AMBULATORY - REHAB MEDICIN [facility] Aug 22, 2024 02:00 PM AMBULATORY - PSYCHIATRY [facility] Aug 27, 2024 01:00 PM AMBULATORY - REHAB MEDICIN E [facility] Aug 29, 2024 01:00 PM AMBULATORY - REHAB MEDICIN E [facility] Aug 29, 2024 02:00 PM AMBULATORY - NONE [facility] Sep 03, 2024 01:00 PM AMBULATORY - REHAB MEDICIN E [facility] Sep 03, 2024 02:00 PM AMBULATORY - REHAB MEDICIN [facility] Sep 05, 2024 01:00 PM AMBULATORY - REHAB MEDICIN E [facility] Sep 05, 2024 02:00 PM AMBULATORY - PSYCHIATRY [facility] Sep 10, 2024 01:00 PM AMBULATORY - REHAB MEDICIN E [facility] Sep 12, 2024 01:00 PM AMBULATORY - REHAB MEDICIN E [facility] Sep 12, 2024 02:00 PM AMBULATORY - NONE [facility] Sep 17, 2024 01:00 PM AMBULATORY - REHAB MEDICIN E [facility] Active, Pending, and Scheduled Orders This section includes a listing of several types of active, pending, and scheduled orders, including clinic medications orders, diagnostic test orders, procedure orders and consult orders; where the start date of the order is 45 days before the date of the Encounter or 45 days after the date of theEncounter. The data comes from all [place] treatment facilities. 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 Radiology Reports and Pathology Reports are provided separately, in subsequent sections. Lab Results This section contains the Chemistry/Hematology Results that were resulted 30 days before or 30 daysafter the date of the Encounter. Date/Time Source Result Type Result - Unit Interpretation Reference Range Comment Aug 14, 2024 05:53 PM [facility] RESPIRATORY PCR PANEL Specimen Type: NASOPHARYNX [...] available to the clinician evaluating the patient. BIOFIRE FilmAaliyah Diamond, (950) Ordering Provider: COLBY HERNANDEZ Report Released Date/Time: Aug 14, 2024 10:22 AM Reporting Lab: [facility] [address] [phone] Performing Lab: [facility] [address] [phone] *Adenovirus (BF) Not Detected Not Detected *Coronavirus [...] Not Detected Aug 01, 2024 09:13 AM [facility] TOTAL T3 (STL-PB) Specimen Type: PLASMA No comment entered. Ordering Provider: COLBY HERNANDEZ Report Released Date/Time: Jul 30, 2024 01:22 PM Reporting Lab: [facility] [address] [facility] [address] Performing Lab: [facility] [address] [address] TOTAL T3 (STL-PB) 119.24 ng/dL 58-159 Jul 23, 2024 11:16 AM [facility] MICRAL/CREAT PROFILE (STL) Specimen Type: URINE No comment entered. Ordering Provider: COLBY HERNANDEZ Report Released Date/Time: Jul 16, 2024 02:46 PM Reporting Lab: [facility] [address] [address] Performing Lab: [facility] [address] [facility] [address] URINE ALBUMIN (PB-STL) 6.3 mg/L uACR (STL) 19 mg/g 0-29 CREATININE URINE/OTHERS 33.7 mg/dL L 63-166 Jul 23, 2024 11:03 AM [facility] ALPHA-1 ANTITRYPSIN (STL-PB) Specimen Type: PLASMA No comment entered. Ordering Provider: INGRID VILLARREAL Report Released Date/Time: Jul 23, 2024 10:40 AM Reporting Lab: [facility] [address] [facility] [address] Performing Lab: [facility] [address] [address] ALPHA-1 ANTITRYPSIN (STL-PB) 230 mg/dL H 84-200 Jul 23, 2024 11:03 AM [facility] LIPID PANEL (STL) Specimen Type: PLASMA Comment: No hemolysis noted. Ordering Provider: COLBY HERNANDEZ Report Released Date/Time: Jul 16, 2024 02:46 PM Reporting Lab: [facility] [address] [facility] [address] Performing Lab: [facility] [address] [phone] CHOLESTEROL 94 mg/dL 0-200 TRIGLYCERIDE 112 mg/dL 0-150 CALCULATED LDL 40 mg/dL HDL(New) 32 mg/dL L >40 Jul 23, 2024 11:03 AM [facility] COMPREHENSIVE METABOLIC PANEL Specimen Type: PLASMA Comment: No hemolysis noted. Ordering Provider: COLBY HERNANDEZ Report Released Date/Time: Jul 16, 2024 02:46 PM Reporting Lab: [place] [address] [address] Performing Lab: [address] [address] CREATININE 0.90 mg/dL 0.7-1.3 UREA NITROGEN 16.8 [...] 88.5 >60 Jul 23, 2024 11:03 AM [facility] HGA1C Specimen Type: BLOOD No comment entered. Ordering Provider: COLBY HERNANDEZ Report Released Date/Time: Jul 16, 2024 02:46 PM Reporting Lab: [address] [address] Performing Lab: [address] [address] HGA1C 6.2 H 4.0-6.0 Jul 23, 2024 11:03 AM [facility] TSH W/ REFLEX FT4 (STL) Specimen Type: PLASMA No comment entered. Ordering Provider: COLBY HERNANDEZ Report Released Date/Time: Jul 16, 2024 02:46 PM Reporting Lab: [address] [address] Performing Lab: [address] [address] TSH 0.052 u[IU]/mL L 0.47-5 FREE T4(REFLEX) 1.27 ng/mL 0.7-1.48 Jul 23, 2024 11:03 AM [facility] CBC Specimen Type: BLOOD No comment entered. Ordering Provider: COLBY HERNANDEZ Report Released Date/Time: Jul 16, 2024 02:46 PM Reporting Lab: [facility] [address] [facility] [address] Performing Lab: [place] [address] [phone] WBC 8.4 10*3/uL 3.6-11.2 RBC 5.34 10*6/uL [...] NORMRBC Yes Jul 23, 2024 11:03 AM [facility] IMMUNOGLOBULIN E Specimen Type: SERUM Comment: Test Performed by Juan J Snell, [facility], [address] [place] [address] Bandar De La Garza M.D., Ph.D., Director of Laboratories , [place] [id number] Ordering Provider: INGRID VILLARREAL Report Released Date/Time: Jul 23, 2024 10:40 AM Reporting Lab: [facility] [address] [place] [phone] Performing Lab: [facility] [address] [facility] [address] IMMUNOGLOBULIN E 52 kU/L <=114 Radiology Reports: +/- 30 days of the [...] the Encounter. The data comes from all [place] treatment facilities. Date/Time Radiology Report Provider Source Jul 23, 2024 10:46 AM CHEST X-RAY, 2 VIE WS: PATRICK CARBALLO [id number] M Exm Date: JUL 23, 2024@10:46 Req Phys: NIKO VILLARREAL Loc: -PULMONARY DEMIDENKO (Req'g Img Loc: -MAIN RADIOLOGY SUITE Service: [address] [address] (Case [id number] COMPLETE) CHEST X-RAY, 2 VIEWS (RAD Detailed) CPT:75261 Reason for Study: pleural effusion Clinical History: [...] Primary Interpreting Staff: HAYDER BOWMAN Staff Physician (Tanning Salon Attendant) /HAYDER PATEL [facility] Encounter Notes: All associated encounter notes This section contains the clinical notes associated to the Encounter. Date/Time Encounter Note(s) Provider Source Aug 01, 2024 03:16 PM CARDIOPULMONARY REHABILITATION CONSULT: LOCAL TITLE: CARDIOPULMONARY REHAB CONSULT [facility] STANDARD TITLE: CARDIOPULMONARY REHABILITATION CONSULT DATE OF NOTE: AUG 01, 2024@15:16 ENTRY DATE: AUG 01, 2024@15:17 AUTHOR: LIPPMANN,LEANNA B EXP COSIGNER: URGENCY: STATUS: COMPLETED Mr. Carballo is referred by the pulmonary clinic and see their notes for full detials. Briefly, he is a 74-year-old man with severe COPD (FEV1 of 1.00 liters - 2*% predicted) requiring continuous supplemental oxygen. [facility] in July 2023 with acute respiratory failure [...] glaucoma, and diabetes. He worked in a [employer]. 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 He quit smoking in April 2023 after approximately 100-pack- year smoking history. Active Outpatient Medications (including Supplies): Active Outpatient [...] A DAY Indication: FOR ELEVATED INTRAOCULAR PRESSURE Vital signs today are a blood pressure today is 138/86, pulse of 82, and oxygen saturation of 92% on 3 L supplemental oxygen. He is in no distress at rest. The lungs have globally diminished air entry with no wheezes or rhonchi. The heart has a regular rate and rhythm and no audible murmurs or gallops. There is no peripheral edema. Mr. Carballo is cleared to participate in the cardiopulmonary rehabilitation program with a maximum heart rate of 120. /day/ LEANNA WETZEL Staff Physician - Pulmonary Signed: 08/05/2024 11:04 LEANNA WETZEL [facility]
--- OUTSIDE RECORDS SUMMARY | 2024-09-01 12:57 | XMS_ITS | Encounter Summary ---
Author Name [facility] ([place]) Organization [facility] [place] Address [address] [place] [id number] Care Team Providers Care Special Crimes Investigator Name Role Phone COLBY HERNANDEZ Primary Care [...] Mullen's Name Patient's Relationship to Policy Mullen [facility] (WNR) MEDICARE ADVANTAGE [facility] (WNR) Jun 05, 2022 [id number] Robel COLON PATIENT [facility] (WNR) MEDICARE ADVANTAGE [facility] (WNR) Jun 05, 2022 [id number] Robel COLON PATIENT [facility] (WNR) MEDICARE ADVANTAGE [facility] (WNR) Jun 05, 2022 [id number] Robel COLON PATIENT Selected Encounter This section includes the information on record at AL for the Encounter. Date/Time Encounter Type Encounter Description Reason Provider Source Jul 23, 2024 10:00 AM OFFICE O/P EST HI 40 MIN PULMONARY/CHEST ICD-10-CM J44.9 Chronic obstructive pulmonary disease, unspecified BETINA VILLARREAL Encounter Template Text not used by [facility] Assessments - Encounter Diagnoses This section includes the primary and secondary diagnoses documented for the Encounter. Date/Time Primary/Secondary Diagnosis Diagnosis Name Provider Source Jul 23, 2024 11:32 AM PRIMARY Chronic obstructive pulmonary disease, unspecified BETINA VILLARREAL [facility] Jul 23, 2024 11:32 AM SECONDARY Chronic rhinitis BETINA VILLARREAL [facility] Jul 23, 2024 11:32 AM SECONDARY Obstructive sleep apnea (adult) (pediatric) BETINA VILLARREAL [facility] Plan of Treatment: Future Appointments (+ 6 months) and Future Tests (+/- 45 days) The Plan of Treatment section includes future care activities for the patient from all [facility]. This section includes future appointments and future orders which are active, pending or scheduled. Future Appointments This section includes appointments that were scheduled to occur 6 months from the date of the Encounter, up to a maximum of 20 appointments. The data comes from all [place] treatment facilities. Appointment Date/Time Appointment Type Appointme nt Facility Name Aug 05, 2024 10:00 AM AMBULATORY - MEDICINE [facility] Aug 06, 2024 09:00 AM AMBULATORY - REHAB MEDICIN E [facility] Aug 14, 2024 10:00 AM AMBULATORY - MEDICINE [facility] Aug 15, 2024 11:00 AM AMBULATORY - REHAB MEDICIN E [facility] Aug 15, 2024 01:00 PM AMBULATORY - REHAB MEDICIN E [facility] Aug 15, 2024 02:00 PM AMBULATORY - NONE [facility] Aug 20, 2024 01:00 PM AMBULATORY - REHAB MEDICIN E [facility] Aug 20, 2024 02:00 PM AMBULATORY - REHAB MEDICIN E [facility] Aug 22, 2024 01:00 PM AMBULATORY - REHAB MEDICIN E [facility] Aug 22, 2024 02:00 PM AMBULATORY - PSYCHIATRY [facility] Aug 27, 2024 01:00 PM AMBULATORY - REHAB MEDICIN E [facility] Aug 29, 2024 01:00 PM AMBULATORY - REHAB MEDICIN E [facility] Aug 29, 2024 02:00 PM AMBULATORY - NONE [facility] Sep 03, 2024 01:00 PM AMBULATORY - REHAB MEDICIN E [facility] Sep 03, 2024 02:00 PM AMBULATORY - REHAB MEDICIN E [facility] Sep 05, 2024 01:00 PM AMBULATORY - REHAB MEDICIN E [facility] Sep 05, 2024 02:00 PM AMBULATORY - PSYCHIATRY [facility] Sep 10, 2024 01:00 PM AMBULATORY - REHAB MEDICIN E [facility] Sep 12, 2024 01:00 PM AMBULATORY - REHAB MEDICIN E [facility] Sep 12, 2024 02:00 PM AMBULATORY - NONE [facility] Active, Pending, and Scheduled Orders This section includes a listing of several types of active, pending, and scheduled orders, including clinic medications orders, diagnostic test orders, procedure orders and consult orders; where the start date of the order is 45 days before the date of the Encounter or 45 days after the date of theEncounter. The data comes from all [place] treatment facilities. Test Date/Time Test Type Test Details Facility Name Aug 14, 2024 12:37 PM Consult Order ENDO THYRO ID DISEASE OUTPATIENT [facility] Cons [employer] Examiner's Choice [facility] Lab Results: +/- 30 days of the encounter This section includes the Chemistry and Hematology Lab Results on record with AL for the patient. Radiology Reports and Pathology [...] the clinician evaluating the patient. Masoud TIPTON, ([phone]) Ordering Provider: COLBY HERNANDEZ Report Released Date/Time: Aug 14, 2024 10:22 AM Reporting Lab: [facility] [address] [facility] [address] Performing Lab: [place] [address] [facility] [address] *Adenovirus (BF) Not Detected Not Detected *Coronavirus [...] Not Detected Aug 01, 2024 09:13 AM [facility] TOTAL T3 (STL-PB) Specimen Type: PLASMA No comment entered. Ordering Provider: COLBY HERNANDEZ Report Released Date/Time: Jul 30, 2024 01:22 PM Reporting Lab: [facility] [address] [facility] [address] Performing Lab: [facility] [address] [place] [phone] TOTAL T3 (STL-PB) 119.24 ng/dL 58-159 Jul 23, 2024 11:16 AM [facility] MICRAL/CREAT PROFILE (STL) Specimen Type: URINE No comment entered. Ordering Provider: COLBY HERNANDEZ Report Released Date/Time: Jul 16, 2024 02:46 PM Reporting Lab: [facility] [address] [place] [phone] Performing Lab: [address] [address] URINE ALBUMIN (PB-STL) 6.3 mg/L uACR (STL) 19 mg/g 0-29 CREATININE URINE/OTHERS 33.7 mg/dL L 63-166 Jul 23, 2024 11:03 AM [facility] ALPHA-1 ANTITRYPSIN (STL-PB) Specimen Type: PLASMA No comment entered. Ordering Provider: INGRID VILLARREAL Report Released Date/Time: Jul 23, 2024 10:40 AM Reporting Lab: [address] [address] Performing Lab: [address] [address] ALPHA-1 ANTITRYPSIN (STL-PB) 230 mg/dL H 84-200 Jul 23, 2024 11:03 AM [facility] LIPID PANEL (STL) Specimen Type: PLASMA Comment: No hemolysis noted. Ordering Provider: COLBY HERNANDEZ Report Released Date/Time: Jul 16, 2024 02:46 PM Reporting Lab: [address] [address] Performing Lab: [address] [address] CHOLESTEROL 94 mg/dL 0-200 TRIGLYCERIDE 112 mg/dL 0-150 CALCULATED LDL 40 mg/dL HDL(New) 32 mg/dL L >40 Jul 23, 2024 11:03 AM [facility] COMPREHENSIVE METABOLIC PANEL Specimen Type: PLASMA Comment: No hemolysis noted. Ordering Provider: COLBY HERNANDEZ Report Released Date/Time: Jul 16, 2024 02:46 PM Reporting Lab: [address] [place] [address] Performing Lab: [address] [address] CREATININE 0.90 mg/dL 0.7-1.3 UREA NITROGEN 16.8 [...] 88.5 >60 Jul 23, 2024 11:03 AM [facility] HGA1C Specimen Type: BLOOD No comment entered. Ordering Provider: COLBY HERNANDEZ Report Released Date/Time: Jul 16, 2024 02:46 PM Reporting Lab: [address] [address] Performing Lab: [address] [address] HGA1C 6.2 H 4.0-6.0 Jul 23, 2024 11:03 AM [facility] TSH W/ REFLEX FT4 (STL) Specimen Type: PLASMA No comment entered. Ordering Provider: COLBY HERNANDEZ Report Released Date/Time: Jul 16, 2024 02:46 PM Reporting Lab: [address] [address] Performing Lab: [address] [address] TSH 0.052 u[IU]/mL L 0.47-5 FREE T4(REFLEX) 1.27 ng/mL 0.7-1.48 Jul 23, 2024 11:03 AM [facility] CBC Specimen Type: BLOOD No comment entered. Ordering Provider: COLBY HERNANDEZ Report Released Date/Time: Jul 16, 2024 02:46 PM Reporting Lab: [facility] [address] [place] [phone] Performing Lab: [place] [address] [facility] [address] WBC 8.4 10*3/uL 3.6-11.2 RBC 5.34 10*6/uL [...] NORMRBC Yes Jul 23, 2024 11:03 AM [facility] IMMUNOGLOBULIN E Specimen Type: SERUM Comment: Test Performed by [employer] [facility] [employer] [facility], [address] [place] [address] Bandar De La Garza M.D., Ph.D., Director of Laboratories , [place] [id number] Ordering Provider: INGRID VILLARREAL Report Released Date/Time: Jul 23, 2024 10:40 AM Reporting Lab: [facility] [address] [facility] [address] Performing Lab: [facility] [id number] [place] [address] IMMUNOGLOBULIN E 52 kU/L <=114 Vital Signs: All taken on the encounter date This section contains inpatient and outpatient Vital Signs collected on the date of the Encounter. Date/Time Temperature Pulse Blood Pressure Respiratory Rate SP02 Pain Height Weight Body Mass Index Source Jul 23, 2024 09:47 AM 97.8 65 131/75 18 94 0 200.8 27 [facility] Social History: Smoking Status (Most current) and Tobacco Use (All prior to encounter date) This section includes the most current, and the historical, smoking and tobacco- related health factors from the AL facility where the Encounter took place. Current Smoking Status This section includes the most current smoking, or tobacco-related health factor, from the AL facility where the Encounter took place. Date/Time Current Smoking Status Comment Facil ity Apr 26, 2024 10:30 AM AL-TOBACCO USE FOR FILI CIGARETTES [facility] Tobacco Use History This section includes a history of the smoking, or tobacco-related health factors, that were collected on or before the date of the Encounter. The data comes from the AL facility where the Encounter took place. Date/Time Smoking Status/Tobacco Use Comment F acility Apr 26, 2024 10:30 AM AL-TOBACCO USE FOR FILI CIGARETTES [facility] Radiology Reports: +/- 30 days [...] the Encounter. The data comes from all [place] treatment facilities. Date/Time Radiology Report Provider Source Jul 23, 2024 10:46 AM CHEST X-RAY, 2 VIE WS: PATRICK COLON [id number] -[id number] Ex Date: JUL 23, 2024@10:46 Req Phys: NIKO VILLARREAL Loc: [facility]-PULMONARY DEMIDENKO (Req'g Img Loc: [facility]-MAIN RADIOLOGY SUITE Service: [facility] [address] [place] [address] (Case [id number] COMPLETE) CHEST X-RAY, 2 VIEWS (RAD Detailed) CPT:61314 Reason for Study: pleural effusion Clinical History: [...] HAYDER BOWMAN, Staff Physician (Car) /HAYDER [facility] Encounter Notes: All associated encounter notes This section contains the clinical notes associated to the Encounter. Date/Time Encounter Note(s) Provider Source Jul 23, 2024 09:55 AM PULMONARY OUTPATIE NT NOTE: LOCAL TITLE: PULMONARY OUTPATIENT FOLLOW UP STL STANDARD TITLE: PULMONARY OUTPATIENT NOTE DATE OF NOTE: JUL 23, 2024@09:55 ENTRY DATE: JUL 23, 2024@09:55:34 AUTHOR: NIKO VILLARREAL EXP COSIGNER: URGENCY: STATUS: COMPLETED PULMONARY OUTPATIENT FOLLOW UP STL Has ADDENDA 74 year old MALE for Pulmonary Clinic follow up visit on 07/23/24 10:00. 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 Mr. Colon reports slightly better dyspnea fater recent PCI to a distal RCA. He still has dyspnea with 1 flight of stairs, walking ~ 1 city block on supplemental O2. He didn't use CPAP for several weeks and restarted last week. The longest time he was able to use it ~ 3.5 hours with supplemental O2. He reports daily but not persistent cough, rare wheezing. He denies hemoptysis, night sweat, nocturnal symptoms or recent URI. He reports rare heartburn on Pantoprazole. He restarted PAntoprazole recently. He reports intermittent nasal congesation and rhinitis that controlled on Cetirizine and Azelastine as needed. He has glaucoma and followed by private ophthalmolofist Dr. Fernando Reed III, [place]rysta. he denies vision changes. 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 Eyes.....................Neg ative for BLURRED VISION/VISUAL CHANGES. Ears/Nose/Mouth/Throat...Neg ative for HEARING CHANGES/SINUS CONGESTION, OR SORE THROAT. Cardiovascular...........Neg ative for CHEST PAIN/PALPITATIONS. Respiratory..............Neg ative for COUGH/WHEEZING. Gastrointestinal.........Neg ative for DIARRHEA/CONSTIPATION/NAUSEA /VOMITING/ABDOMINAL PAIN/MELENA Genitourinary............Neg ative for DYSURIA/HESITANCY/URGENCY/IN CONTINENCE. Muscular.................Neg ative for CHANGES STRENGTH/JOINT PAIN, OR SWELLING. Integumentary............Neg ative for RASH/HIVES/BRUISING/DISCOLOR ATION. Neurological.............Neg ative for LOC/LIGHTHEADEDNESS/DIZZINES S/FOCAL WEAKNESS,OR PARESTHESIA Endocrine................Neg ative for GOITER/LETHARGY/HEAT - COLD INTOLERANCE. Hematologic/Lymphatic....Neg ative for PALLOR/SWELLING. Allergies/Immune.........Neg ative FOR CHANGE. Psychological.Negative for DEPRESSION/ANXIETY/MOOD CHANGES. PAST PULMONARY/MEDICAL HISTORY Interval hx: 73 y/o male with COPD and h/o admission for hypoxic respiratory failure due to HFpEF and pneumonia in 08/2023, see in consult clinic in 10/2023 Noted to have persistent pleural effusion so underwent thora on 11/02/2023. Seen 3 months ago at the time of the thora He reports stable CALLAHAN He gets out of his house every day using his o2, but is not doing any exercise. Overall better compared to earlier in the year Cough- occasional Mucous production- twice a day at most Used flonase for 3 weeks and quit after he got nose bleed Albuterol use- have not used it for 5 months since discharge Wixela one puff twice a day spiriva once a day Saw outside cardiology once after discharge. Plan to see them next week (looks like by his Medicare) No L/E edema (use to not able to wear this pants) Diuresed and 20 pounds Weighing himself every few days Taking Lasix 40mg No orthopnea Supposed to get sleep study and he cancelled and he was not sure why he needs it. He states various reason for cancellations- such as the sleep provider not knowing the who made the consult, nasal congestion, etc. 1) HTN - Hypertension ([facility] [id number]) 2) GERD - Gastro-Esophageal Reflux Disease ([facility] [id number]) 3) Constipation ([facility] [id number]) 4) Prostate cancer 5) Chronic obstructive lung disease 6) Carotid Artery Stenosis ([facility] [id number]) 7) Glaucoma 8) Prediabetes 9) Vitamin D Deficiency ([facility] [id number]) 10) Exposure to potentially hazardous substance 11) Obstructive Sleep Apnea of Adult ([facility] [id number]) 12) Chronic diastolic heart failure 13) CAD - Coronary Artery Disease ([facility] [id number]) IM - IMMUNIZATIONS ADMINISTERED Immunization Series Date Facility Reaction Info [...] 04/01/2022 No Site ZOSTER RECOMBINANT C 09/29/2022 . [facility] ZOSTER RECOMBINANT 1 08/01/2022 . [facility] <C> CONTRAINDICATED No data available REFUSED ======= Immunization Date Facility Info COVID-19 (NOVAVAX), SUBUNIT, RS-* 02/07/2024 [facility] <I> INFLUENZA, UNSPECIFIED FORMULATI* 07/29/2022 . [facility]* <I> PNEUMOCOCCAL CONJUGATE, UNSPECIF* 07/29/2022 [facility] <I> TDAP 02/07/2024 . [facility]* <I> TDAP 07/28/2023 . [facility]* <I> TDAP 07/29/2022 . [facility]* <I> ZOSTER RECOMBINANT 07/29/2022 [facility]* <I> ACTIVE OUTPATIENT MEDICATIONS Active Outpatient Medications (including Supplies): Active Outpatient [...] ELEVATED INTRAOCULAR PRESSURE 20 Total Medications MEDICATION NOTES Wixela 250/50 1 puf BID Spiriva 2 puffs daily Mucinex as needed Cetirizine as needed AZELASTINE nasal Flonase nasal ALLERGIES Patient has answered NKA PHYSICAL EXAMINATION Vital Signs: Temperature: 97.8 F [36.6 C] (07/23/2024 09:47) Blood Pressure: 131/75 (07/23/2024 09:47) Pulse: 65 (07/23/2024 09:47) Respirations: 18 (07/23/2024 09:47) Pain: 0 (07/23/2024 09:47) Patient Height:73 in [185.4 cm] (05/07/2024 09:52) Patient Weight:200.8 lb [91.08 kg] (07/23/2024 09:47) BMI: 26.5 O2 saturation: 94% (07/23/2024 09:47) on 2L/conserver General: NAD, breathing comfortably at rest on room air, well nourished, well developed. HEENT: No trauma, normal conjunctiva, ears, nasal mucosa, sinus palpation, and pharynx, PERRL, Neck: Supple, trachea midline, no JVD, thyromegaly, adenopathy. Heart: S1S2, regular rhythm without murmur, rub, gallop, no edema bilaterally, pulses 2+/rad Lungs: CTAB, and auscultation normal, even with forced expiration. Abdomen: Bowel sounds present, soft, not distended, not tender, no hepatosplenomegaly. Extremities: Good pulses, no clubbing, cyanosis, edema. Skin: No rashes or lesions. MSK: normal gait, VAN Neurologic: AoX4, responds appropriately, NATI, CN II-XII grossly intact . SELECTED RESULTS REVIEWED D/C summary from [facility] 06/18/2024 reviewed. 6MW by PIPE CREW FOREMAN on 07/23/2024: Rest on RA SpO2-93% HR-78 Ambulate 600ft on 3/conserver SpO2-92% HR-84 IMPRESSION/RECOMMENDATIONS 1. COPD, very severe obstruction and mild restriction with decreased DLCO though uncorrected. -- We discuss his respiratory problem and our approach to management. -- Continue Wixela and Spiriva as maitenance. -- Continue Albuterol CFC-F as needed. Enccouraged to premedicate before activity. -- Review inhaler technique -- ENCOURAGE DAILY PHYSICAL ACTIVITY. Discuss CARP. Wilandrea update Dr. Romero- mobile mechanic. -- Maintain healthy weight. -- Will update Dr. Derek EUGENE private sweat band separator. Property Insurance Agent [facility] [phone] f [phone] Fernando Reed III, O.D. 2. YANNA, on CPAP+ O2. -- Continue CPAP with every sleep. 3. Hypoxemia. -- See 6MW by PIPE CREW FOREMAN on 07/23/2024: RA at rest, 3L/conserver with activity -- T-piece O2 atapter today for CPAP. USe O2 as prescribed with activity and with sleep. -- Review PSG. 4. Tobacco use, quit 2022. -- Refused LCS program. -- Congratulated on remaining tobacco free 5. Immunization. UTD. -- Will discuss RSV next visit. -- Encouraged annual influenza vaccination 6. Chronic rhintis. -- Continue Cetirizine, Azelastine and Flonase. 7. CAD, HFpEF, [facility] 8. Abnormal chest images, pleural effusion. -- CXR now. RTC in 6 mo. Plan of care has been discussed with who verbalizes understanding and is in agreement with the plan of care. Vet was advised to call or go to the nearest health facility if any worsening of respiratory symptoms like Chest pain, hemoptysis or SOB. Patient was instructed to keep all scheduled appointments and contact nurse practitioner if any additional problems occur after this appointment. Dr. Romero- please recommend if patient is ready to participate in CARP. Appreciate your professional opinion. /day/ CALLIE NAIR PULMONARY ANP Signed: 07/23/2024 11:27 Receipt Acknowledged By: 07/23/2024 13:44 /day/ MELVIN ROMERO MD,[facility] STAFF CONVERTING OPERATOR 07/28/2024 ADDENDUM STATUS: COMPLETED I was able to make contact with and discuss results of CXR and blood test. I answered all his question. Dr. Romero's respond about CARP: Yes. He had NSTEMI (trop 4) and PCI with [place] 3 x 34 mm to mid LAD and orsiro [place] 2.5 x 22 mm to distal RCA into the [facility] 06/2024 at [facility]. He recovers well since then. Patient agreed with CARP. Ordered. /CALLIE Verdin PULMONARY ANP Signed: 07/28/2024 16:02 07/28/2024 ADDENDUM STATUS: COMPLETED Noted results of A1AT 230 ^. /CALLIE Verdin PULMONARY ANP Signed: 07/28/2024 16:22 NIKO VILLARREAL [facility]
--- OUTSIDE RECORDS SUMMARY | 2024-09-01 12:57 | XMS_ITS | Data Portability ---
Author Organization [place] [facility] [employer], Main Office Address [address] [place] [address] Care Team Providers Care Bell Tier Name Role Phone CARISA READ Primary Care Provider CARISA READ Referring Provider Assessment Encounter Date Assessment Date Assessment LastModified by Organization Details LastModified Time 10/09/2023 10/09/2023 Assessment: Hypertension YANNA PLMD Hypoventilation Plan: The following were reviewed and explained to the patient: primary care/referral note General information on sleep disordered breathing, evaluation of sleep disordered breathing, treatment with PAP therapy, and living with PAP therapy were covered. Chapter 1 of educational DVD was shown. PSG is medically necessary to determine the degree of and management of sleep apnea. We discussed with the patient the impact of weight on: Sleep disordered breathing Hypertension Mixed hyperlipidemia DM NICK Hepatic steatosis We discussed with the patient the benefit of PAP therapy on: Sleep disordered breathing Glaucoma Rhinitis Hypertension DM NICK Educated the patient on sleep hygiene measures. Relaxing rituals to rest easy, understanding foods with positive and negative impact on sleep, creating a peaceful sleep environment, timing of exercise, using herbal sleep aids, and practicing sleep-friendly meditation were covered. To determine how much sleep is needed, the patient will assess where he falls on the spectrum, examine what lifestyle factor such as stress is affecting the quality and quantity of sleep. In general, adults need 7-9 hours of sleep. Educated the patient regarding foods that promote sleep. These include but are not limited to cherries, bananas, toast, oatmeal, and warm milk. Educated the patient regarding foods and drinks to avoid before bedtime. These include but are not limited to aged cheese, chocolate, spicy foods, tomato-based sauces, soy, ginseng tea and processed meat. Advocated influenza vaccination annually and pneumonia vaccination in 2027. Advocated weight loss through diet and exercise. Patient's ideal body weight according to height and gender is up to 195 lbs. Encouraged patient to adjust caloric intake to maintain/achieve ideal body weight, emphasizing on fruits, vegetables, whole grains, and fat-free or low-fat products. These include lean meats, poultry, fish, beans, eggs, and nuts and foods that are low in saturated fats, trans-fats, cholesterol, salt (sodium), and glycemic index. Stressed the importance of regular exercise up to the patient's capacity limits. In this case, we recommend 20 min daily walking, 2 days a week of resistance training. Patient to monitor BP daily and bring records to PCP for further management. Follow-up: 1 week after diagnostic sleep study Not available 10/09/2023 10:56:19 11/09/2023 11/09/2023 Assessment: Hypertension Early REM onset Moderate OSAHS, AHI = 15 Plan: The following were reviewed and explained to the patient: [facility] diagnostic sleep study 11/02/23 sleep onset = 17 minutes, REM onset = 56.5 minutes, AHI = 15, supine AHI = 16, REM AHI = 21, PLMI = 0.0 General information on sleep disordered breathing, evaluation of sleep disordered breathing, treatment with PAP therapy, and living with PAP therapy were covered. PSG is medically necessary to determine the management of sleep apnea. We discussed with the patient the impact of weight on: Sleep disordered breathing Hypertension Mixed hyperlipidemia DM NICK Hepatic steatosis We discussed with the patient the benefit of PAP therapy on: Sleep disordered breathing Glaucoma Rhinitis Hypertension DM NICK Educated the patient on sleep hygiene measures. Relaxing rituals to rest easy, understanding foods with positive and negative impact on sleep, creating a peaceful sleep environment, timing of exercise, using herbal sleep aids, and practicing sleep-friendly meditation were covered. To determine how much sleep is needed, the patient will assess where he falls on the spectrum, examine what lifestyle factor such as stress is affecting the quality and quantity of sleep. In general, adults need 7-9 hours of sleep. Educated the patient regarding foods that promote sleep. These include but are not limited to cherries, bananas, toast, oatmeal, and warm milk. Educated the patient regarding foods and drinks to avoid before bedtime. These include but are not limited to aged cheese, chocolate, spicy foods, tomato-based sauces, soy, ginseng tea and processed meat. Advocated influenza vaccination annually and pneumonia vaccination in 2027. Advocated weight loss through diet and exercise. Patient's ideal body weight according to height and gender is up to 195 lbs. Encouraged patient to adjust caloric intake to maintain/achieve ideal body weight, emphasizing on fruits, vegetables, whole grains, and fat-free or low-fat products. These include lean meats, poultry, fish, beans, eggs, and nuts and foods that are low in saturated fats, trans-fats, cholesterol, salt (sodium), and glycemic index. Stressed the importance of regular exercise up to the patient's capacity limits. In this case, we recommend 20 min daily walking, 2 days a week of resistance training. Patient to monitor BP daily and bring records to PCP for further management. Follow-up: 1 week after titration sleep study Not available 11/09/2023 12:12:52 01/23/2024 01/23/2024 Assessment: Rhinitis Persistent early REM onset Moderate OSAHS, AHI = 15 Plan: The following were reviewed and explained to the patient: [facility] diagnostic sleep study 11/02/23 sleep onset = 17 minutes, REM onset = 56.5 minutes, AHI = 15, supine AHI = 16, REM AHI = 21, PLMI = 0.0 [facility] titration sleep study 01/17/24 sleep onset = 6.5 minutes, REM onset = 77 minutes, [employer] medium Linda full face mask @ 10-20 cmH2O + 2 Lpm O2, PLMI = 0.0 Educated the patient on problems and solutions associated with positive airway pressure (PAP) use. Difficulty tolerating pressure, mask leaks, intolerance of interface, nasal congestion, claustrophobic response, dry mouth, and unintentional mask removal during sleep were covered. Patient experiences nasal congestion. Patient will use nasal saline spray before starting PAP, use heated PAP humidifier, clean/air dry humidifier reservoir daily, use nasal steroid spray, use ipratropium bromide nasal spray if rhinitis/rhinorrhe a is present or obtain an oronasal/oral interface. Dry mouth is a normal occurrence for people who just start out on PAP therapy because they are not used to air blowing in to the throat to hold open. Dry mouth is exacerbated for people who wear nasal PAP mask and whose jaw drops open during sleep. Not only does this create a much less efficient therapy because of leakage, it also causes dry mouth. There are a couple solutions to help prevent this type of problem. A simple solution would be to wear a chinstrap which essentially holds the jaw in place. A second solution would be a switch to a full face mask which covers both the nose and mouth. Although this is another easy solution, using a full face mask for some could seem claustrophobic or confining. There is no silver bullet solution as no single mask is right for everybody. Sometimes it takes a bit of experimentation to find a PAP mask which best meets the patient's needs as well as fits comfortably. Another tactic is to use a humidifier on your PAP machine. Most new PAP machines have integrated humidifiers. Humidification is regan when dealing with symptoms of dry mouth because the humidifier can supply both warm and room temperate air. Even a small amount of humidity in the airflow will help nasal passages to stay hydrated. If a person is using both a full face mask and a PAP machine with a heated humidifier and is still experiencing dry mouth, an ill-fitted PAP mask might be causing the problem. Leakage can be caused by a mask that is to large or small, the wrong style mask, the cushion is degraded or simply because the mask's straps aren't adjusted correctly. If leakage occurs, dry air from the room can leak in while humidification escapes. The result is reduced humidification within the circuit and resulting in dry throat and mouth. Finally, beyond factors involving the PAP machine and mask, dry mouth can also be caused or worsened by dehydration. The general recommendation to during eight 8 oz. glasses of water a day might be too little for many people. When people drink large amounts of coffee or other caffeine beverages, or sweat a lot during the day, making sure to rehydrate is an important part of PAP therapy. [employer] Air Sense 11 auto set unit with heated humidifier, supplies and [employer] medium Linda full face mask @ 10-20 cmH2O + 2 Lpm O2 ordered. Further titration will be based on clinical response. Provided the patient with a list of local home care stores where positive airway pressure (PAP) units, accoutrement, and services are available. Home care store selection is based on patient's insurance carrier. Patient will setup an appointment with [facility] for supplies and pressure adjustments. A major predictor of success with use of PAP is follow-up with both the respiratory supplier and the treating physician. The respiratory supplier optimally will follow-up within two weeks after starting use while the treating physician optimally will follow-up within 90 days after starting therapy to assess adherence and effectiveness of treatment. The download results can show the treating physician information about adherence to treatment, residual AHI while on treatment and presence of large mask leakage. This information is especially helpful if the patient has residual sleepiness despite treatment. General information on sleep disordered breathing, evaluation of sleep disordered breathing, treatment with PAP therapy, and living with PAP therapy were covered. We discussed with the patient the impact of weight on: Sleep disordered breathing Hypertension Mixed hyperlipidemia DM NICK Hepatic steatosis We discussed with the patient the benefit of PAP therapy on: Sleep disordered breathing Glaucoma Rhinitis Hypertension DM NICK Educated the patient on sleep hygiene measures. Relaxing rituals to rest easy, understanding foods with positive and negative impact on sleep, creating a peaceful sleep environment, timing of exercise, using herbal sleep aids, and practicing sleep-friendly meditation were covered. To determine how much sleep is needed, the patient will assess where he falls on the spectrum, examine what lifestyle factor such as stress is affecting the quality and quantity of sleep. In general, adults need 7-9 hours of sleep. Educated the patient regarding foods that promote sleep. These include but are not limited to cherries, bananas, toast, oatmeal, and warm milk. Educated the patient regarding foods and drinks to avoid before bedtime. These include but are not limited to aged cheese, chocolate, spicy foods, tomato-based sauces, soy, ginseng tea and processed meat. Advocated influenza vaccination annually and pneumonia vaccination in 2027. Advocated weight loss through diet and exercise. Patient's ideal body weight according to height and gender is up to 195 lbs. Encouraged patient to adjust caloric intake to maintain/achieve ideal body weight, emphasizing on fruits, vegetables, whole grains, and fat-free or low-fat products. These include lean meats, poultry, fish, beans, eggs, and nuts and foods that are low in saturated fats, trans-fats, cholesterol, salt (sodium), and glycemic index. Stressed the importance of regular exercise up to the patient's capacity limits. In this case, we recommend 20 min daily walking, 2 days a week of resistance training. Patient to monitor BP daily and bring records to PCP for further management. Follow-up: 3 months, April 2024 Not available 01/23/2024 10:29:21 04/22/2024 04/22/2024 Assessment: Rhinitis Persistent early REM onset Moderate OSAHS, AHI = 15 Plan: The following were reviewed and explained to the patient: [facility] diagnostic sleep study 11/02/23 sleep onset = 17 minutes, REM onset = 56.5 minutes, AHI = 15, supine AHI = 16, REM AHI = 21, PLMI = 0.0 [facility] titration sleep study 01/17/24 sleep onset = 6.5 minutes, REM onset = 77 minutes, [employer] medium Linda full face mask @ 10-20 cmH2O + 2 Lpm O2, PLMI = 0.0 PAP compliance downloaded and interpreted x 20 minutes. Data reviewed and explained to the patient. Average apnea/hypopnea index (AHI) is 3.4. Patient used PAP > 4 hours 70% of the time. PAP is set at 10-20 cmH2O. PAP will be reset at 10-13 cmH2O. Oxygen supplementation: 2 Lpm. Keep EPR +2 night time nanny. Keep ramp off. Keep humidifier level at automatic mode. Keep tube temperature at automatic mode. Patient is benefiting from PAP therapy. Encouraged patient to maintain PAP use more than 70% of the time. Statement of PAP use and benefits will be sent to the home care store. Educated the patient on problems and solutions associated with positive airway pressure (PAP) use. Difficulty tolerating pressure, mask leaks, intolerance of interface, nasal congestion, claustrophobic response, dry mouth, and unintentional mask removal during sleep were covered. Patient experiences nasal congestion. Patient will use nasal saline spray before starting PAP, use heated PAP humidifier, clean/air dry humidifier reservoir daily, use nasal steroid spray, use ipratropium bromide nasal spray if rhinitis/rhinorrhe a is present or obtain an oronasal/oral interface. Dry mouth is a normal occurrence for people who just start out on PAP therapy because they are not used to air blowing in to the throat to hold open. Dry mouth is exacerbated for people who wear nasal PAP mask and whose jaw drops open during sleep. Not only does this create a much less efficient therapy because of leakage, it also causes dry mouth. There are a couple solutions to help prevent this type of problem. A simple solution would be to wear a chinstrap which essentially holds the jaw in place. A second solution would be a switch to a full face mask which covers both the nose and mouth. Although this is another easy solution, using a full face mask for some could seem claustrophobic or confining. There is no silver bullet solution as no single mask is right for everybody. Sometimes it takes a bit of experimentation to find a PAP mask which best meets the patient's needs as well as fits comfortably. Another tactic is to use a humidifier on your PAP machine. Most new PAP machines have integrated humidifiers. Humidification is regan when dealing with symptoms of dry mouth because the humidifier can supply both warm and room temperate air. Even a small amount of humidity in the airflow will help nasal passages to stay hydrated. If a person is using both a full face mask and a PAP machine with a heated humidifier and is still experiencing dry mouth, an ill-fitted PAP mask might be causing the problem. Leakage can be caused by a mask that is to large or small, the wrong style mask, the cushion is degraded or simply because the mask's straps aren't adjusted correctly. If leakage occurs, dry air from the room can leak in while humidification escapes. The result is reduced humidification within the circuit and resulting in dry throat and mouth. Finally, beyond factors involving the PAP machine and mask, dry mouth can also be caused or worsened by dehydration. The general recommendation to during eight 8 oz. glasses of water a day might be too little for many people. When people drink large amounts of coffee or other caffeine beverages, or sweat a lot during the day, making sure to rehydrate is an important part of PAP therapy. Provided the patient with a list of local home care stores where positive airway pressure (PAP) units, accoutrement, and services are available. Home care store selection is based on patient's insurance carrier. Patient will setup an appointment with [facility] for supplies and pressure adjustments. A major predictor of success with use of PAP is follow-up with both the respiratory supplier and the treating physician. The respiratory supplier optimally will follow-up within two weeks after starting use while the treating physician optimally will follow-up within 90 days after starting therapy to assess adherence and effectiveness of treatment. The download results can show the treating physician information about adherence to treatment, residual AHI while on treatment and presence of large mask leakage. This information is especially helpful if the patient has residual sleepiness despite treatment. General information on sleep disordered breathing, evaluation of sleep disordered breathing, treatment with PAP therapy, and living with PAP therapy were covered. We discussed with the patient the impact of weight on: Sleep disordered breathing Hypertension Mixed hyperlipidemia DM NICK Hepatic steatosis We discussed with the patient the benefit of PAP therapy on: Sleep disordered breathing Glaucoma Rhinitis Hypertension DM NICK Educated the patient on sleep hygiene measures. Relaxing rituals to rest easy, understanding foods with positive and negative impact on sleep, creating a peaceful sleep environment, timing of exercise, using herbal sleep aids, and practicing sleep-friendly meditation were covered. To determine how much sleep is needed, the patient will assess where he falls on the spectrum, examine what lifestyle factor such as stress is affecting the quality and quantity of sleep. In general, adults need 7-9 hours of sleep. Educated the patient regarding foods that promote sleep. These include but are not limited to cherries, bananas, toast, oatmeal, and warm milk. Educated the patient regarding foods and drinks to avoid before bedtime. These include but are not limited to aged cheese, chocolate, spicy foods, tomato-based sauces, soy, ginseng tea and processed meat. Advocated influenza vaccination annually and pneumonia vaccination in 2027. Advocated weight loss through diet and exercise. Patient's ideal body weight according to height and gender is up to 195 lbs. Encouraged patient to adjust caloric intake to maintain/achieve ideal body weight, emphasizing on fruits, vegetables, whole grains, and fat-free or low-fat products. These include lean meats, poultry, fish, beans, eggs, and nuts and foods that are low in saturated fats, trans-fats, cholesterol, salt (sodium), and glycemic index. Stressed the importance of regular exercise up to the patient's capacity limits. In this case, we recommend 20 min daily walking, 2 days a week of resistance training. Patient to monitor BP daily and bring records to PCP for further management. Follow-up: 1 year, April 2025 Not available 04/22/2024 11:21:22 Plan of Treatment Reminders Order Date Submit Date Provider Last Modified By Organization Details Last Modified Time Details Appointments Any 15 2024 09:15A Georgia Arias MD Not available Not available Not available Any 30 2024 09:30A Georgia Arias MD Not available Not available Not available Lab None recorded. Referral None recorded. Procedures None recorded. Surgeries None recorded. Imaging polysomno gram, titration study 2023 024 [email or web address] 2 [facility], [address] [place] [address], [address], 11/20/2023 08:24:57 polysomno gram, diagnosti c, 6 yrs or older 2023 024 [email or web address] 5 [facility], [address] [place], [address], 10/18/2023 09:14:12 Medication Orders None recorded. Patient TargetsNo targets recorded. Patient InstructionsNo instructions recorded. Reason for Referral None Reported. Results Created Date Observation Date Name Description Value Unit Range Abnormal Flag Note LastModifiedBy Organization Detail LastModifiedTime 11/09/1911/02/2023 polys omnog alexandra, diagn ostic , 6 yrs or older No observ ation record ed. [facility] [address] [place], [address], 11/09/2023 17:25:53 01/31/20 24 01/17/2024 polys omnog alexandra, titra tion study No observ ation record ed. [facility] [address] [place], [address], 01/31/2024 14:57:28 06/16/1906/16/2024 imagi ng/di agnos tic resul t No observ ation record ed. [facility] [address], [place], [address], 06/16/2024 08:19:56 06/18/19 25 06/18/2024 imagi ng/di agnos tic resul t No observ ation record ed. [facility] [address] [facility] [address], [place], [address], 06/18/2024 17:31:36 Result Notes None recorded. Problems Name Problem SNOMED Code Status Onset Date Resolution Date Notes Provider Name and Address Organization Details Recorded Time Steatosis of liver 837366984 Active Not Available [facility] 3 16:23:23 Glaucoma 17263858 Active 2021 Not Available [facility] 3 16:23:23 Impaired fasting glycemia 746334445 Active Not Available [facility] 3 16:23:24 Essential hypertension 54353856 Active Not Available [facility] 3 16:23:24 Chronic rhinitis 35038553 Active Not Available [facility] 3 16:23:24 Chronic obstructive pulmonary disease 09419536 Active 2022 Not Available [facility] 3 16:23:23 Malignant tumor of prostate 243138307 Active 2022 Not Available [facility] 3 16:23:24 Hypertriglyce ridemia 484130956 Active 2022 Carisa Foster MD [address] [facility] [address], [place], [address] , [employer] 3 09:28:33 Obstructive sleep apnea syndrome 04566551 Active 2023 Francisco Javier Arias MD [address] [address], [place], [address] , [employer] 4 12:12:56 Notes:Medical History: Glauc hollis Bilateral tinnitus Rhinitis Bruxism Persistent early REM onset Mod OSAHS, AHI = 15, 11/02/23, on autoCPAP + 2 Lpm O2 [facility] Hypertension with diastolic dysfunction Mixed hyperlipidemia T2DM NICK Hepatic steatosis Bilateral hepatic cysts Right renal cyst 3.5 cm infrarenal AAA Vit D deficiency Procedure History: Right carotid endarterectomy 2012 Radical prostatectomy 2022 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 Procedures Surgical History Date Name Laterality Status Provider Name and Address Organization Details Recorded Time 02/25/20 23 Medicare Wellness CPT Code, subsequent completed Maine Aviles RN [facility] 02/23/2023 12:11:32 07/12/19 23 Prostatectomy (turp) completed Darin Bliss CMA [employer] 10/09/2023 10:33:03 05/17/20 angiography of carotid artery completed Darin Bliss CMA [facility] Amanda Huff DBA [employer] [facility] 10/09/2023 10:32:36 Imaging Results Imaging Date Name Status LastModified by [facility] Details LastModified Time 11/02/2023 polysomnogram, diagnostic, 6 yrs or older completed [facility] [address] [place], [address], 11/09/2023 17:25:53 01/17/2024 polysomnogram, titration study completed [facility] [address] [place], [address], 01/31/2024 14:57:28 06/16/2024 imaging/diagno stic result active [address], [place], [address], 06/16/2024 08:19:56 06/18/2024 imaging/diagno stic result active [address], [place], [address], 06/18/2024 17:31:36 Procedure Notes None recorded. Medical Equipment None Reported. Allergies No known drug allergies Medications Name Sig Start Date Stop Date Status Note LastModified by Organization Details LastModified Time cyclobenzap rine 10 mg tablet Take 1 tablet 3 times a day by oral route. active Not Available Not Available No t Available furosemide 40 mg tablet TAKE 1 TABLET BY MOUTH DAILY active Not Available Not Available No t Available latanoprost 0.005 % eye drops INSTILL ONE DROP INTO BOTH EYES EVERY NIGHT AT BEDTIME active Not Available Not Available No t Available potassium chloride ER 10 mEq capsule,ext ended release TAKE 1 CAPSULE BY MOUTH TWICE DAILY active Not Available Not Available No t Available carvedilol 12.5 mg tablet TAKE 1 TABLET BY MOUTH TWICE DAILY 10/08 completed Not Available Not Available Not Available ipratropium 0.5 mg-albutero l 3 mg (2.5 mg base)/3 mL nebulizatio n soln Inhale 3 mL every day by nebulizat ion route for 1 day. 11/12 completed Not Available Not Available Not Available lisinopril 20 mg-hydrochl orothiazide 12.5 mg tablet TAKE 2 TABLETS BY MOUTH EVERY DAY 08/15 completed Not Available Not Available Not Available azithromyci n 250 mg tablet TAKE 2 TABLETS (500 MG) BY ORAL ROUTE ONCE DAILY FOR 1 DAY THEN 1 TABLET (250 MG) BY ORAL ROUTE ONCE DAILY FOR 4 DAYS active Not Available Not Available No t Available valacyclovi r 1 gram tablet Take 1 tablet every 12 hours by oral route. 10/07 completed Not Available Not Available Not Available hydrocodone 5 mg-acetamin ophen 325 mg tablet TAKE 1 TO 2 TABLETS BY MOUTH EVERY 6 HOURS NEEDED FOR PAIN 10/07 completed Not Available Not Available Not Available ondansetron HCl 8 mg tablet TK 1 T PO Q 8 H FOR 2 DAYS active Not Available Not Available No t Available Zyrtec 10 mg tablet Take 1 tablet every day by oral route. 2013 active Not Available Not Available Not Avai lable ciprofloxac in 500 mg tablet Take 1 tablet every 12 hours by oral route for 2 days. active Not Available Not Available No t Available tramadol 50 mg tablet 1-2 tabs Q6 hours as needed active Not Available Not Available No t Available triamcinolo ne acetonide 0.1 % topical cream APPLY A THIN LAYER TO THE AFFECTED AREA(S) BY TOPICAL ROUTE 2 TIMES PER DAY 10/07 completed Not Available Not Available Not Available cephalexin 500 mg capsule TAKE 1 CAPSULE BY MOUTH EVERY 8 HOURS 10/07 completed Not Available Not Available Not Available pantoprazol e 40 mg tablet,julia yed release TAKE 1 TABLET BY MOUTH EVERY DAY 10/08 completed Not Available Not Available Not Available hyoscyamine sulfate 0.125 mg tablet TAKE 1 TABLET BY MOUTH EVERY 6 HOURS NEEDED FOR BLADDER SPASMS 10/07 completed Not Available Not Available Not Available neomycin-po lymyxin-dex ameth 3.5 mg/mL-10,00 0 unit/mL-0.1 % eye drops INSTILL 2 DROP INTO AFFECTED EYE(S) BY OPHTHALMI C ROUTE EVERY 4-6 HOURS 08/24 completed Not Available Not Available Not Available docusate sodium 100 mg capsule TAKE ONE CAPSULE BY MOUTH DAILY 10/07 completed Not Available Not Available Not Available dorzolamide 22.3 mg-timolol 6.8 mg/mL eye drops INSTILL 1 DROP IN BOTH EYES TWICE DAILY 07/19 completed Not Available Not Available Not Available Nasonex 50 mcg/actuati on Riley Riley 2 sprays every day by intranasa l route. 2013 active Not Available Not Available Not Avai lable methylpredn isolone 4 mg tablets in a dose pack Use as directed active Not Available Not Available No t Available albuterol sulfate HFA 90 mcg/actuati on aerosol inhaler active Not Available Not Available Not Available timolol maleate 0.5 % eye drops INSTILL 1 DROP IN AFFECTED EYE TWICE DAILY 08/15 completed Not Available Not Available Not Available fluticasone propionate 50 mcg/actuati on nasal spray,suspe nsion Riley 1 spray every day by intranasa l route. active Not Available Not Available No t Available midodrine 10 mg tablet TAKE 1 TABLET BY MOUTH THREE TIMES DAILY BEFORE MEALS 10/08 completed Not Available Not Available Not Available Asprin Ec Low Dose 81 mg tablet,julia yed release Take 1 tablet every day by oral route. 2013 active Not Available Not Available Not Avai lable Benicar HCT 40 mg-25 mg tablet TAKE ONE TABLET BY MOUTH EVERY DAY active Not Available Not Available No t Available Bystolic 10 mg tablet Take 1 tablet every day by oral route. 2013 active NDC# Not Available Not Available Not Avai lable GaviLyte-N 420 gram oral solution active Not Available Not Available Not Available Jardiance 10 mg tablet TAKE 1 TABLET BY MOUTH DAILY active Not Available Not Available No t Available Trelegy Ellipta 100 mcg-62.5 mcg-25 mcg powder for inhalation INHALE 1 PUFF BY MOUTH DAILY active Not Available Not Available No t Available Wixela Inhub 250 mcg-50 mcg/dose powder for inhalation INHALE 1 PUFF BY MOUTH TWICE DAILY 08/15 completed Not Available Not Available Not Available Vitals Date Recorded Body height Body mass index (BMI) Body weight Oxygen saturation Oxygen saturation in Arterial blood by Pulse oximetry Heart rate Respiratory rate Systolic blood pressure Diastolic blood pressure Provider Name and Address Organization Details Last Updated DateTime 4 182.88 cm 26.4 kg/m2 29644.5 1 g 93 % 93 % 83 /min 16 /min 124 mm[Hg] 82 mm[Hg] Shelley Jorge RN [facility] [employer] [facility] 4 11:06:28 Date Recorded Body height Body mass index (BMI) Body weight Body temperature Heart rate Systolic blood pressure Diastolic blood pressure Provider Name and Address Organization Details Last Updated DateTime 4 182.88 cm 26.9 kg/m2 56143.2 9 g 97.8 [degF] 96 /min 142 mm[Hg] 78 mm[Hg] Darin BlissJOE [facility] [employer] [facility] 4 10:23:45 Date Recorded Oxygen saturation Oxygen saturation in Arterial blood by Pulse oximetry Heart rate Respiratory rate Oxygen saturation Oxygen saturation in Arterial blood by Pulse oximetry Inhaled oxygen flow rate Provider Name and Address Organization Details Last Updated DateTime 4 86 % 86 % 96 /min 15 /min 94 % 94 % 2 L/min Francisco Javier Arias MD [address], [place], [address], [facility] [employer] [facility] 4 10:57:48 Date Recorded Body height Body mass index (BMI) Body weight Heart rate Systolic blood pressure Diastolic blood pressure Provider Name and Address Organization Details Last Updated DateTime 4 182.88 cm 26.4 kg/m2 28840.5 1 g 77 /min 144 mm[Hg] 76 mm[Hg] Darin BlissJOE [facility] [employer] [facility] 4 11:35:33 Date Recorded Oxygen saturation Oxygen saturation in Arterial blood by Pulse oximetry Heart rate Respiratory rate Provider Name and Address Organization Details Last Updated DateTime 11/09/2023 89 % 89 % 77 /min 14 /min Francisco Javier Arias MD [address] [facility] [address], [place], [address] [place] [address] [employer] [facility] 4 12:16:16 Date Recorded Body temperature Provider Name a nd Address Organization Details Last Updated DateTime 11/09/2023 98.1 [degF] Catrachita Hood MA [facility] [employer] [facility] 11/09/2023 12:17:09 Date Recorded Body height Body mass index (BMI) Body weight Body temperature Heart rate Oxygen saturation Oxygen saturation in Arterial blood by Pulse oximetry Systolic blood pressure Diastolic blood pressure Provider Name and Address Organization Details Last Updated DateTime 4 182.88 cm 26.7 kg/m2 48665.7 g 98.2 [degF] 76 /min 91 % 91 % 118 mm[Hg] 76 mm[Hg] Catrachita Hood MA [employer] 4 10:16:30 Date Recorded Heart rate Respiratory rate Provider N yoko and Address Organization Details Last Updated DateTime 01/23/2024 76 /min 15 /min Francisco Javier Arias MD [address], [place], [address], [employer] 01/23/2024 10:39:09 Date Recorded Body height Body mass index (BMI) Body weight Body temperature Heart rate Systolic blood pressure Diastolic blood pressure Provider Name and Address Organization Details Last Updated DateTime 4 182.88 cm 26.9 kg/m2 96610.2 9 g 97.8 [degF] 76 /min 120 mm[Hg] 78 mm[Hg] Catrachita Hood MA [employer] 4 10:42:51 Date Recorded Oxygen saturation Oxygen saturation in Arterial blood by Pulse oximetry Heart rate Respiratory rate Provider Name and Address Organization Details Last Updated DateTime 04/22/2024 90 % 90 % 76 /min 15 /min Francisco Javier Arias MD [address], [employer], [place], [address], [employer] 4 11:22:05 Social History Question Answer Notes LastModified by Organizat ion Details LastModified Time Tobacco Smoking Status Former Smoker Quit 6 months ago SHAKIRA Jolly, [employer] 10/09/2023 10:34:29 What Is Your Level Of Alcohol Consumption? None [email or web address] Information not available 10/09/2023 Is Blood Transfusion Acceptable In An Emergency? Yes [email or web address] Information not available 10/09/2023 What Is Your Level Of Caffeine Consumption? Moderate Coffee [email or web address] Information not available 10/09/2023 What Type Of Diet Are You Following? REGULAR Information not available 01/23/2024 Do You Have An Electrostatic Air Filter? No Information not available 01/23/2024 Do You Have A Humidifier? No Information not available 01/23/2024 Do You Have Moisture Problems In Your Home? No Information not available 01/23/2024 What Was The Date Of Your Most Recent Tobacco Screening? 04/22/2024 Information not available 04/22/2024 Do You Have Any Pets? No [email or web address] Information not available 10/09/2023 Do You Use Your Seat Belt Or Car Seat Routinely? Yes [email or web address] Information not available 10/09/2023 Do You Have Smoke And Carbon Monoxide Detectors In Your Home? Yes Information not available 01/23/2024 Are You Passively Exposed To Smoke? No [email or web address] Information no t available 10/09/2023 Do You Feel Stressed (tense, Restless, Nervous, Or Anxious, Or Unable To Sleep At Night)? [id number] [email or web address] Information not available 10/09/2023 Do You Use Any Illicit Or Recreational Drugs? No [email or web address] Information not available 10/09/2023 Do You Use Sunscreen Routinely? No Information not available 01/23/2024 How Many Years Have You Smoked Tobacco? 60 [email or web address] Information not available 10/09/2023 Do You Have Any Dietary Restrictions? No Information not available 01/23/2024 Sex: Unknown Functional Status Question Answer Note LastModified by Organization D etails LastModified Time What is your exercise level? None Information not available 01/23/2024 Mental Status None recorded. Family History Relationship Description Onset Age of this Age Resolved Age Notes LastModified by Organization Details LastModified Time Mother Age related macular degeneration Not available 10/2023 20:16:19 Mother Malignant tumor of breast Not available 2023 20:16:48 Sister Age related macular degeneration Not available 10/2023 20:16:24 Sister Malignant tumor of pancreas Not available 2023 20:17:39 Medical History No medical history recorded. Immunizations Vaccine Type Date Status Note Provider Nam e and Address Organization Details Recorded Time Influenza, high-dose, quadrivalent, PF 3 completed Carisa Foster MD [address], [facility] [address], [place], [address], [facility] [employer] 02/24/2023 17:54:27 Influenza, high-dose, quadrivalent, PF 2 completed Not Available [facility] 12/12/2022 16:23:24 Influenza, high-dose, quadrivalent, PF 1 completed Not Available [facility] 12/12/2022 16:23:24 Influenza, high-dose, quadrivalent, PF 0 completed Not Available [facility] 12/12/2022 16:23:24 pneumococcal polysaccharide PPV23 0 completed Not Available [facility] 12/12/2022 16:23:24 Influenza, high-dose, trivalent, PF 9 completed Not Available [facility] 12/12/2022 16:23:24 Pneumococcal conjugate PCV 13 9 completed Not Available [facility] 12/12/2022 16:23:24 Influenza, high-dose, trivalent, PF 7 completed Not Available [facility] 12/12/2022 16:23:24 Influenza, high-dose, trivalent, PF 5 completed Not Available [facility] 12/12/2022 16:23:24 Influenza, split virus, trivalent, preservative 4 completed SHAKIRA R[place], [place] [employer] 02/24/2023 09:15:06 Past Encounters Encounter ID Performer Location Encounter Start Date Encounter Closed Date Diagnosis/Indication Diagnosis SNOMED-CT Code Diagnosis ICD10 Code Diagnosis Note [id number] [facility] [address] [place] [address] 04/02/2021 00:00:00 04/02/2021 12:07:39 [id number] [facility] Elaine llsam [address] [place] [address] 02/23/2022 00:00:00 02/23/2022 18:41:47 [id number] [facility] [place] [address] [facility] [place] [address] 03/10/2022 00:00:00 03/10/2022 10:29:45 [id number] [facility] [place] [address] [facility] [place] [address] 06/10/2022 00:00:00 06/11/2022 11:36:43 [id number] Carisa Foster MD [facility] [place] [address] [place] [address] [place] [address] 10/07/2022 11:08:15 10/07/2022 11:41:52 Essential hypertension 08818855 I10 F/u in 2 weeks. Call as needed. Watch salt in diet. [id number] Carisa Foster MD [facility] Elaine kaur [address] [place] [address] [place] [address] 10/21/2022 10:26:28 10/21/2022 10:41:39 Essential hypertension 34488519 I10 Watch salt in diet. His BP is better since doubling the lisinopril /HCT Chronic ob structive pulmonary disease 89769832 J44.9 Use inhalers recommend smoking cessation. Malignant tumor of prostate 736825441 C61 [id number] Carisa Foster MD [facility] Elaine llsam [address] [place] [address] [place] [address] 01/23/2023 10:41:00 01/23/2023 11:03:56 Essential hypertension 48981167 I10 Watch salt in diet. His BP is better since doubling the lisinopril /HCT. F/u in 6 months. [id number] Carisa Foster MD [facility] Elaine kaur [address] [place] [address] [place] [address] 02/24/2023 09:08:29 02/24/2023 09:36:13 Adult health examination 644081013 Z00.00 Screening for disorder 293139234 Z13.9 Hypertriglyceridemia 302 288365 E78.1 Administra tion of influenza vaccine 63581691 Z23 [id number] JULISA Cervantes [facility] [place] [address] [facility] [place] [address] 07/19/2023 12:09:35 07/19/2023 13:00:03 Essential hypertension 03847944 I10 Edema of foot 188718636 R60.0 Chronic ob structive pulmonary disease 10708849 J44.9 Allergic rhinitis 603701 04 J30.9 Steatosis of liver 1007 K76.0 [id number] JULISA Cervantes [facility] [place] [address] [facility] [place] [address] 08/16/2023 11:01:41 08/16/2023 11:25:00 Allergic rhinitis 88012173 J30.9 Chronic ob structive pulmonary disease 97361826 J44.9 Essential hypertension 37268538 I10 Glaucoma 24252470 H40.01 3 Hypertriglyceridemia 302 246217 E78.1 Impaired f asting glycemia 480185211 R73.01 Steatosis of liver 1007 K76.0 [id number] Francisco Javier Arias MD [place] [address] 10/09/2023 10:05:09 10/10/2023 08:18:42 Sleep apnea 51101118 G47.30 G47.33 G47.36 G47.61 [id number] Francisco Javier Arias MD [address] [address] 11/09/2023 11:11:14 11/10/2023 08:39:44 Obstructive sleep apnea syndrome 33968271 G47.33 G47.36 [id number] Francisco Javier Arias MD [address] [address] 01/23/2024 09:47:36 01/24/2024 08:10:26 Obstructive sleep apnea syndrome 84677219 G47.33 G47.36 [id number] Francisco Javier Arias MD [facility] [place] [address] [facility] [address] [place] [address] 04/22/2024 10:13:27 06/14/2024 10:11:22 Obstructive sleep apnea syndrome 34638550 G47.33 Health Concerns Section Related Observation LastModified by Organization Detai ls LastModified Time None Recorded Concern Status LastModified by Organization Details LastModified Time None Recorded Advance Directives Directive None Recorded Payers Encounter Date Sequence Insurance Name Policy Number Policy Mullen Covered Member ID Mullen Member ID Guarantor Name 08/16/2023 [address] [facility] - MEDICARE COMPLETE PLUS PLAN 1 (MEDICARE REPLACEMENT POS) [id number] [id number] Mc Colon 10/09/2023 [facility] Mc Colon [id number] 11/09/2023 [facility] Mc Colon [id number] 01/23/2024 [facility] Mc Colon [id number] 04/22/2024 [facility] ([facility] Mc Colon [id number] Notes Date Note Type Note Provider Name and Address Organization Details Recorded Time 08/16/2023 text/html was in hospital CHF, pneumonia , COPD. 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 Hansen . [facility] JULISA Cervantes [address] [facility] [address], [place], [address], [facility] [employer] 08/31/2023 09:30:05 10/09/2023 text/html Primary care/Ref erring provider: JULISA Cervantes; LEO Hodgson CC: I was given oxygen after a recent hospitalization for CHF and COPD. At home, the patient sleeps from 12 am to 6 am and wakes up without an alarm. Snoring: light Snorting: yes Choking: yes Coughing: no Gasping: no Gagging: no Sighing: no Witnessed apnea: yes Twitching or jerking of leg(s), arm(s), body, head: yes Teeth grinding: yes Teeth clenching: yes Sleeptalking: yes Sleepwalking: no Sleep crying: yes Bedwetting: no Tongue/lip/gum/cheek biting: no Sleeping with open mouth: yes Sleep paralysis: no Hypnagogic hallucinations: no Hypnopompic hallucinations: no Vivid dreams: yes Difficulty with sleep onset: yes Difficulty with sleep maintenance: yes Sleep interruptions: choking Patient wakes up with: fatigue, xerostomia, mobility impairment, dexterity impairment Daytime cataplexy: no Morning hypersomnolence: yes Afternoon hypersomnolence: yes Caffeine sources in diet: coffee 10 cups per day, tea 4 glasses per day, soda 1 bottle per day, chocolate 1 candy per day Associated medical and psychiatric conditions: Congestive heart failure: no Coronary artery disease: no Myocardial infarction: no Hypertension: yes Stroke: no Bronchial asthma: no Chronic obstructive pulmonary disease: no Depression: no Bipolar disorder: no Anxiety: no Panic disorder: no Posttraumatic stress disorder: no Attention deficit and hyperactivity disorder: no Obsessive Compulsive disorder: no Schizophrenia: no Schizoaffective disorder: no Personality disorder: no Chronic analgesic use: no Chronic sedative/hypnotic use: no EPWORTH SLEEPINESS SCALE (ESS) CHANCE OF DOZING SCORE 0 = would never doze 1 = slight chance of dozing 2 = moderate chance of dozing 3 = high chance of dozing SITUATION AND CHANCE OF DOZING Sitting and reading - 2 Watching television - 1 Sitting inactive in a public place (e.g. a theater or meeting) - 2 As a passenger in a car for an hour without a break - 0 Lying down to rest in the afternoon when circumstances permit - 3 Sitting and talking to someone - 0 Sitting quietly after lunch without alcohol - 2 In a car, while stopped for a few minutes in the traffic - 0 TOTAL SCORE 10 Subjectively, patient has a moderate chance of dozing. Francisco Javier Arias MD [address] [place] [address], [place] [address], [place], [address], [facility] Amanda Huff [employer] [facility] 10/09/2023 11:05:32 11/09/2023 text/html Primary care/Ref erring provider: Ab Ferrara PA-C; LEO Hodgson During the [facility] diagnostic sleep study on 11/02/23, sleep onset = 17 minutes, REM onset = 56.5 minutes, AHI = 15, supine AHI = 16, REM AHI = 21, PLMI = 0.0. At home, the patient sleeps from 12 am to 6 am and wakes up without an alarm. Snoring: lightSnorting: yesChoking: yesCoughing: noGasping: noGagging: noSighing: noWitnessed apnea: yesTwitching or jerking of leg(s), arm(s), body, head: yesTeeth grinding: yesTeeth clenching: yesSleeptalking: yesSleepwalking: noSleep crying: yesBedwetting: noTongue/lip/gum/cheek biting: noSleeping with open mouth: yesSleep paralysis: noHypnagogic hallucinations: noHypnopompic hallucinations: noVivid dreams: yesDifficulty with sleep onset: yesDifficulty with sleep maintenance: yesSleep interruptions: chokingPatient wakes up with: fatigue, xerostomia, mobility impairment, dexterity impairmentDaytime cataplexy: noMorning hypersomnolence: yesAfternoon hypersomnolence: yesCaffeine sources in diet: coffee 10 cups per day, tea 4 glasses per day, soda 1 bottle per day, chocolate 1 candy per day Associated medical and psychiatric conditions:Congestive heart failure: noCoronary artery disease: noMyocardial infarction: noHypertension: yesStroke: noBronchial asthma: noChronic obstructive pulmonary disease: noDepression: noBipolar disorder: noAnxiety: noPanic disorder: noPosttraumatic stress disorder: noAttention deficit and hyperactivity disorder: noObsessive Compulsive disorder: noSchizophrenia: noSchizoaffective disorder: noPersonality disorder: noChronic analgesic use: noChronic sedative/hypnotic use: no EPWORTH SLEEPINESS SCALE (ESS) CHANCE OF DOZING SCORE0 = would never doze1 = slight chance of dozing2 = moderate chance of dozing3 = high chance of dozing SITUATION AND CHANCE OF DOZINGSitting and reading - 2Watching television - 2Sitting inactive in a public place (e.g. a theater or meeting) - 2As a passenger in a car for an hour without a break - 0Lying down to rest in the afternoon when circumstances permit - 2Sitting and talking to someone - 0Sitting quietly after lunch without alcohol - 2In a car, while stopped for a few minutes in the traffic - 0TOTAL SCORE 10Subjectively, patient has a moderate chance of dozing. Francisco Javier Arias MD [address] [facility], [facility] [address], [place], [address], [place] [facility] [employer] 11/09/2023 12:19:49 01/23/2024 text/html Primary care/Ref erring provider: LEO Hodgson During the [facility] diagnostic sleep study on 11/02/23, sleep onset = 17 minutes, REM onset = 56.5 minutes, AHI = 15, supine AHI = 16, REM AHI = 21, PLMI = 0.0. During the [facility] titration sleep study on 01/17/24, sleep onset = 6.5 minutes, REM onset = 77 minutes, PLMI = 0.0. The patient uses a [employer] AirSense 11 autoset unit with heated humidification. The patient does not need the ramp to start low and go up slowly on the pressure. There is some xerostomia in a.m. There is no hose/mask condensation with water. The patient wears a [employer] medium Linda full face mask without chin strap. There is no claustrophobia, no nostril/nose bridge irritation, no facial rash, no facial numbness, no nosebleeding. The patient feels more refreshed upon waking and daytime alertness is improved. Energy levels are sustained for the remainder of the day. At home, the patient sleeps from 12 am to 6 am and wakes up without an alarm. Snoring: lightSnorting: yesChoking: yesCoughing: noGasping: noGagging: noSighing: noWitnessed apnea: yesTwitching or jerking of leg(s), arm(s), body, head: yesTeeth grinding: yesTeeth clenching: yesSleeptalking: yesSleepwalking: noSleep crying: yesBedwetting: noTongue/lip/gum/cheek biting: noSleeping with open mouth: yesSleep paralysis: noHypnagogic hallucinations: noHypnopompic hallucinations: noVivid dreams: yesDifficulty with sleep onset: yesDifficulty with sleep maintenance: yesSleep interruptions: chokingPatient wakes up with: fatigue, xerostomia, mobility impairment, dexterity impairmentDaytime cataplexy: noMorning hypersomnolence: yesAfternoon hypersomnolence: yesCaffeine sources in diet: coffee 10 cups per day, tea 4 glasses per day, soda 1 bottle per day, chocolate 1 candy per day Associated medical and psychiatric conditions:Congestive heart failure: noCoronary artery disease: noMyocardial infarction: noHypertension: yesStroke: noBronchial asthma: noChronic obstructive pulmonary disease: noDepression: noBipolar disorder: noAnxiety: noPanic disorder: noPosttraumatic stress disorder: noAttention deficit and hyperactivity disorder: noObsessive Compulsive disorder: noSchizophrenia: noSchizoaffective disorder: noPersonality disorder: noChronic analgesic use: noChronic sedative/hypnotic use: no EPWORTH SLEEPINESS SCALE (ESS) CHANCE OF DOZING SCORE0 = would never doze1 = slight chance of dozing2 = moderate chance of dozing3 = high chance of dozing SITUATION AND CHANCE OF DOZINGSitting and reading - 2Watching television - 2Sitting inactive in a public place (e.g. a theater or meeting) - 2As a passenger in a car for an hour without a break - 0Lying down to rest in the afternoon when circumstances permit - 2Sitting and talking to someone - 0Sitting quietly after lunch without alcohol - 2In a car, while stopped for a few minutes in the traffic - 0TOTAL SCORE 10Subjectively, patient has a moderate chance of dozing. Francisco Javier Arias MD [address] [place] [address], [facility] [address], [place], [address], [place] - [place] Amanda Huff DBA [facility] 01/23/2024 10:39:17 04/22/2024 text/html Primary care/Ref erring provider: LEO Hodgson During the [facility] diagnostic sleep study on 11/02/23, sleep onset = 17 minutes, REM onset = 56.5 minutes, AHI = 15, supine AHI = 16, REM AHI = 21, PLMI = 0.0. During the [facility] titration sleep study on 01/17/24, sleep onset = 6.5 minutes, REM onset = 77 minutes, PLMI = 0.0. At home since 04/12/24, the patient uses a [employer] AirSense 11 autoset unit with heated humidification. The patient does not need the ramp to start low and go up slowly on the pressure. There is some xerostomia in a.m. There is no hose/mask condensation with water. The patient wears a [employer] small/medium Linda full face mask without chin strap. There is no claustrophobia, no nostril/nose bridge irritation, no facial rash, no facial numbness, no nosebleeding. The patient feels more refreshed upon waking and daytime alertness is improved. Energy levels are sustained for the remainder of the day. At home, the patient sleeps from 12 am to 6 am and wakes up without an alarm. Snoring: lightSnorting: yesChoking: yesCoughing: noGasping: noGagging: noSighing: noWitnessed apnea: yesTwitching or jerking of leg(s), arm(s), body, head: yesTeeth grinding: yesTeeth clenching: yesSleeptalking: yesSleepwalking: noSleep crying: yesBedwetting: noTongue/lip/gum/cheek biting: noSleeping with open mouth: yesSleep paralysis: noHypnagogic hallucinations: noHypnopompic hallucinations: noVivid dreams: yesDifficulty with sleep onset: yesDifficulty with sleep maintenance: yesSleep interruptions: chokingPatient wakes up with: fatigue, xerostomia, mobility impairment, dexterity impairmentDaytime cataplexy: noMorning hypersomnolence: yesAfternoon hypersomnolence: yesCaffeine sources in diet: coffee 10 cups per day, tea 4 glasses per day, soda 1 bottle per day, chocolate 1 candy per day Associated medical and psychiatric conditions:Congestive heart failure: noCoronary artery disease: noMyocardial infarction: noHypertension: yesStroke: noBronchial asthma: noChronic obstructive pulmonary disease: noDepression: noBipolar disorder: noAnxiety: noPanic disorder: noPosttraumatic stress disorder: noAttention deficit and hyperactivity disorder: noObsessive Compulsive disorder: noSchizophrenia: noSchizoaffective disorder: noPersonality disorder: noChronic analgesic use: noChronic sedative/hypnotic use: no EPWORTH SLEEPINESS SCALE (ESS) CHANCE OF DOZING SCORE0 = would never doze1 = slight chance of dozing2 = moderate chance of dozing3 = high chance of dozing SITUATION AND CHANCE OF DOZINGSitting and reading - 0Watching television - 0Sitting inactive in a public place (e.g. a theater or meeting) - 3As a passenger in a car for an hour without a break - 0Lying down to rest in the afternoon when circumstances permit - 3Sitting and talking to someone - 0Sitting quietly after lunch without alcohol - 0In a car, while stopped for a few minutes in the traffic - 0TOTAL SCORE 6Subjectively, patient has a slight chance of dozing. Francisco Javier Arias MD [address] [place] [address], [address], [address], [place] - [facility] 04/22/2024 11:26:48
--- OUTSIDE RECORDS SUMMARY | 2024-09-01 12:57 | XMS_ITS | Encounter Summary ---
Author Name [facility] [place] [facility] [place] Address [address] [place] [id number] Care Team Providers Care Supervisor Grinding Name Role Phone COLBY HERNANDEZ Primary Care [...] Mullen's Name Patient's Relationship to Policy Mullen [facility] (WNR) MEDICARE ADVANTAGE [facility] (WNR) Jun 05, 2022 [id number] Robel COLON PATIENT [facility] (WNR) MEDICARE ADVANTAGE [facility] (WNR) Jun 05, 2022 [id number] Robel COLON PATIENT [facility] (WNR) MEDICARE ADVANTAGE [facility] (WNR) Jun 05, 2022 [id number] Robel COLON PATIENT Selected Encounter This section includes the information on record at [place] for the Encounter. Date/Time Encounter Type Encounter Description Reason Provider Source Apr 26, 2024 10:30 AM OFFICE O/P EST HI 40 MIN PULMONARY/CHEST ICD-10-CM J44.9 Chronic obstructive pulmonary disease, unspecified BETINA VILLARREAL Encounter Template Text not used by [place] Assessments - Encounter Diagnoses This section includes the primary and secondary diagnoses documented for the Encounter. Date/Time Primary/Secondary Diagnosis Diagnosis Name Provider Source Apr 26, 2024 12:04 PM PRIMARY Chronic obstructive pulmonary disease, unspecified BETINA VILLARREAL [facility] Apr 26, 2024 12:04 PM SECONDARY Chronic rhinitis BETINA VILLARREAL [facility] Apr 26, 2024 12:04 PM SECONDARY Hypoxemia BETINA VILLARREAL [facility] Apr 26, 2024 12:04 PM SECONDARY Lack of physical exercise BETINA VILLARREAL [facility] Apr 26, 2024 12:04 PM SECONDARY Obstructive sleep apnea (adult) (pediatric) CHADD VILLARREALI [facility] Apr 26, 2024 12:04 PM SECONDARY Other nonspecific abnormal finding of lung field [facility] Plan of Treatment: Future Appointments (+ 6 months) and Future Tests (+/- 45 days) The Plan of Treatment section includes future care activities for the patient from all [place] [facility]. This section includes future appointments and future orders which are active, pending or scheduled. Future Appointments This section includes appointments that were scheduled to occur 6 months from the date of the Encounter, up to a maximum of 20 appointments. The data comes from all [place] treatment facilities. Appointment Date/Time Appointment Type Appointme nt Facility Name May 07, 2024 10:00 AM AMBULATORY - MEDICINE [facility] Jun 21, 2024 10:00 AM AMBULATORY - MEDICINE [facility] Jul 03, 2024 01:00 PM AMBULATORY - MEDICINE [facility] Jul 23, 2024 10:00 AM AMBULATORY - MEDICINE [facility] Aug 05, 2024 10:00 AM AMBULATORY - MEDICINE [facility] Aug 06, 2024 09:00 AM AMBULATORY - REHAB MEDICIN [facility] Aug 14, 2024 10:00 AM AMBULATORY - MEDICINE [facility] Aug 15, 2024 11:00 AM AMBULATORY - REHAB [facility]ICIN [facility] Aug 15, 2024 01:00 PM AMBULATORY - REHAB MEDICIN E [facility] Aug 15, 2024 02:00 PM AMBULATORY - NONE [facility] Aug 20, 2024 01:00 PM AMBULATORY [facility] Aug 20, 2024 02:00 PM AMBULATORY - [facility]AB [facility] Aug 22, 2024 01:00 PM AMBULATORY - REHAB [facility]ICIN [facility] Aug 22, 2024 02:00 PM AMBULATORY - PSYCHIATRY [facility] Aug 27, 2024 01:00 PM AMBULATORY - REHAB [facility] Aug 29, 2024 01:00 PM AMBULATORY - RE[facility]AB [facility] Aug 29, 2024 02:00 PM AMBULATORY - NONE [facility] Sep 03, 2024 01:00 PM AMBULATORY - [facility]HAB [facility]IC[facility] Sep 03, 2024 02:00 PM AM[facility]ULATORY - [facility] Sep 05, 2024 01:00 PM [facility]ULATORY - [facility] Vital Signs: All taken on the encounter date This section contains inpatient and outpatient Vital Signs collected on the date of the Encounter. Date/Time Temperature Pulse Blood Pressure Respiratory Rate SP02 Pain Height Weight Body Mass Index Source Apr 26, 2024 10:33 AM 138/96 [facility] Apr 26, 2024 10:33 AM 98.3 75 156/87 18 96 0 73 199.1 26 [facility] Social History: Smoking Status (Most current) [...] Encounter took place. Date/Time Current Smoking Status Julissa farias Apr 26, 2024 10:30 AM VA-TOBACCO USE FOR IFLI CIGARETTES [facility] Tobacco Use History This section includes a history of the smoking, or tobacco-related health factors, that were collected on or before the date of the Encounter. The data comes from the [place] facility where the Encounter took place. Date/Time Smoking Status/Tobacco Use Comment Yaima low Apr 26, 2024 10:30 AM VA-TOBACCO USE FOR FILI CIGARETTES [facility] Encounter Notes: All associated encounter notes This section contains the clinical notes associated to the Encounter. Date/Time Encounter Note(s) Provider Source Apr 26, 2024 10:57 AM PULMONARY OUTPATIE NT NOTE: LOCAL TITLE: PULMONARY OUTPATIENT FOLLOW UP [facility] STANDARD TITLE: PULMONARY OUTPATIENT NOTE DATE OF NOTE: APR 26, 2024@10:57 ENTRY DATE: APR 26, 2024@10:57:19 AUTHOR: NIKO VILLARREAL EXP COSIGNER: URGENCY: STATUS: COMPLETED PULMONARY OUTPATIENT FOLLOW UP [facility] Has ADDENDA 73 year old MALE for Pulmonary Clinic follow up visit on 04/26/24 10:30. CHIEF COMPLAINT 6 month follow up primarily for COPD, hypoxemia, frequent pneumonia and AECOPD, YANNA. This is a new patient to provider. HISTORY The patient is a very pleasant 73 y/o male with PMH of COPD, hx of assisted tobacco use, hypoxemia on 2L/NC O2, frequent AECOPD vs pneumonia, YANNA on CPAP, HFpEF, GERD, HTN, CAD, Glaucoma, prediabetes. Mr. Colon reports stable respiaratory symptoms manifested by dyspnea and cough productive of small amount of clear sputum. He denies hemoptysis, wheezing, night sweat. He reports dyspnea with ambulateing ~ 1 city block on supplemental O2. He ises CPAP w/o O2, broke O2 adapter. He denies shortness of breat at rest. He reports frequent daily cough but not persistent. HE reprts dark sputum predominantly in AM. He reports intermittent seasonal rhintis that controlled on Azelastine, Flonase and Cetirizine. He denies heartburn, GERD sx or aspiration. He denies chest pain at rest or with activity. 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 Eyes.....................N egative for BLURRED VISION/VISUAL CHANGES. Ears/Nose/Mouth/Throat...N egative for HEARING CHANGES/SINUS CONGESTION, OR SORE THROAT. Cardiovascular...........N egative for CHEST PAIN/PALPITATIONS. Respiratory..............N egative for COUGH/WHEEZING. Gastrointestinal.........N egative for DIARRHEA/CONSTIPATION/NAUS EA/VOMITING/ABDOMINAL PAIN/MELENA Genitourinary............N egative for DYSURIA/HESITANCY/URGENCY/ INCONTINENCE. Muscular.................N egative for CHANGES STRENGTH/JOINT PAIN, OR SWELLING. Integumentary............N egative for RASH/HIVES/BRUISING/DISCOL ORATION. Neurological.............N egative for LOC/LIGHTHEADEDNESS/DIZZIN ESS/FOCAL WEAKNESS,OR PARESTHESIA Endocrine................N egative for GOITER/LETHARGY/HEAT - COLD INTOLERANCE. Hematologic/Lymphatic....N egative for PALLOR/SWELLING. Allergies/Immune.........N egative FOR CHANGE. Psychological.Negative for DEPRESSION/ANXIETY/MOOD CHANGES. PAST [...] nasal congestion, etc. 1) HTN - Hypertension ([facility] [id number]) 2) GERD - Gastro-Esophageal Reflux Disease ([facility] [id number]) 3) Constipation ([facility] [id number]) 4) Prostate cancer 5) Chronic obstructive lung disease 6) Carotid Artery Stenosis ([facility] [id number]) 7) Glaucoma 8) Prediabetes 9) Vitamin D Deficiency ([facility] [id number]) 10) Exposure to potentially hazardous substance 11) Obstructive Sleep Apnea of Adult ([facility] [id number]) 12) Chronic diastolic heart failure IM - IMMUNIZATIONS ADMINISTERED Immunization Series Date [...] 04/01/2022 No Site [facility]OSTER RECOMBINANT C 09/29/2022 [facility]* ZOSTER RECOMBINANT 1 08/01/2022 [facility]* <C> CONTRAINDICATED No data available REFUSED ======= Immunization Date Facility Info COVID-19 (NOVAVAX), SUBUNIT, RS-* 02/07/2024 [facility]* <I> INFLUENZA, UNSPECIFIED FORMULATI* 07/29/2022 [facility]* <I> PNEUMOCOCCAL CONJUGATE, UNSPECIF* 07/29/2022 [facility]* <I> TDAP 02/07/2024 . [facility]* <I> TDAP 07/28/2023 . [facility]* <I> TDAP 07/29/2022 [facility]* <I> ZOSTER RECOMBINANT 07/29/2022 . [facility]* <I> ACTIVE OUTPATIENT MEDICATIONS Active Outpatient Medications [...] 50MCG (D3-2,000UNIT) TAB TAKE ONE TABLET ACTIVE (S) BY MOUTH ONCE A DAY FOR VITAMIN [...] ACTIVE TWICE A DAY 15 Total Medications MEDICATION NOTES Wixela 250/50 1 puf BID Spiriva 2 puffs daily Mucinex as needed Cetirizine as needed AZELASTINE nasal Flonase nasal ALLERGIES Patient has answered NKA PHYSICAL EXAMINATION Vital Signs: Temperature: 98.3 F [36.8 C] (04/26/2024 10:33) Blood Pressure: 138/96 (04/26/2024 10:33) Pulse: 75 (04/26/2024 10:33) Respirations: 18 (04/26/2024 10:33) Pain: 0 (04/26/2024 10:33) Patient Height:73 in [185.4 cm] (04/26/2024 10:33) Patient Weight:199.1 lb [90.31 kg] (04/26/2024 10:33) BMI: 26.3 O2 saturation: 96% (04/26/2024 10:33) on 2L/conserver General: NAD, breathing comfortably at rest on room air, well nourished, well developed. HEENT: No trauma, normal conjunctiva, ears, nasal mucosa, sinus palpation, and pharynx, PERRL, Neck: Supple, trachea midline, no JVD, thyromegaly, adenopathy. Heart: S1S2, regular rhythm without murmur, rub, gallop, no edema bilaterally, pulses 2+/rad Lungs: CTAB,no wheezing even with forced expiration. Abdomen: Bowel sounds present, soft, not distended, not tender, no hepatosplenomegaly. Extremities: Good pulses, no clubbing, cyanosis, edema. Skin: No rashes or lesions. MSK: normal gait, VAN Neurologic: AoX4, responds appropriately, NATI, CN II-XII grossly intact . SELECTED RESULTS REVIEWED CXR 01/12/2024: Finding: PA and lateral views of the chest examination shows residual left pleural effusion and left lower lobe atelectasis. The right costophrenic angle is obliterated suggestive of chronic pleural thickening or small right pleural effusion. No other evidence of consolidation or mass. No pneumothorax. 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 IMPRESSION/RECOMMENDATIONS 1. COPD, very severe obstruction and mild restriction with decreased DLCO though uncorrected. -- We discuss his respiratory problem and our approach to management. -- Continue Wixela and Spiriva as maitenance. -- Continue Albuterol CFC-F as needed. renew. -- REVIEW INHALER TECHNIQUE. -- ENCOURAGE DAILY PHYSICAL ACTIVITY. -- MAintain healthy weight. 2. YANNA, on CPAP. -- Continue CPAP with every sleep. 3. Hypoxemia. -- RT assessment next visit. -- T-piece O2 atapter today for CPAP. USe O2 as prescribed with activity and with sleep. -- Review PSG. 4. Tobacco use, quit 2022. -- Consult LCS program. -- Congratulated on remaining tobacco free 5. Immunization. UTD -- Encouraged annual influenza vaccination 6. Chronic rhintis. -- Continue Cetirizine, Azelastine and Flonase. 7. [facility]EF[facility] 8. Abnormal chest images, pleural effusion. -- CXR now. RTC in 3 mo. Plan of care has been discussed [...] any additional problems occur after this appointment. Initial Lung Cancer Screen (Provider): No clinical exclusions, patient is a current candidate for the lung cancer screening program. Patient agrees to lung cancer screening. Lung cancer screening information provided and low dose CT will be ordered. Patient currently uses cigarettes and does not want assistance with smoking cessation at this time. Tobacco Use Screening - U,L,N,S,PS,M,DE,PH,P: The patient is a former cigarette smoker. Quit smoking LESS THAN 15 years. Year the patient quit smoking: Date: 2020 ? Exact date is unknown The patient states they smoked the following number of years: # of years: 60 Average number of packs/day over the entire time patient smoked: Packs/day: 1 The patient has never used other types of tobacco. Initial Lung Cancer Screen (Provider): No clinical exclusions, patient is a current candidate for the lung cancer screening program. Patient agrees to lung cancer screening. Lung cancer screening information provided and low dose CT will be ordered. /CALLIE Verdin PULMONARY ANP Signed: 04/28/2024 20:27 05/07/2024 ADDENDUM STATUS: COMPLETED Patient didn't complete CXR. /day/ CALLIE NAIR PULMONARY ANP Signed: 05/07/2024 11:16 NIKO VILLARREAL [facility]
--- OUTSIDE RECORDS SUMMARY | 2024-09-01 12:57 | XMS_ITS ---
OR GROUP THERAPEUTIC PROCEDURES [facility] Encounter Summary Created on: September 01, 2024 PATRICK COLON : 1950 Sex: Male Author Name [facility] (OR) Organization [facility] (OR) Address [address] [place] [id number] Care Team Providers Care Rental Representative Name Role Phone COLBY HERNANDEZ Primary Care [...] Patient's Relationship to Policy Mullen [facility] (WNR) MEDICARE ADVANTAGE [facility] (WNR) Jun 05, 2022 [id number] Robel COLON PATIENT [facility] (WNR) MEDICARE ADVANTAGE [facility] (WNR) Jun 05, 2022 [id number] Robel COLON PATIENT [facility] (WNR) MEDICARE ADVANTAGE [facility] (WNR) Jun 05, 2022 [id number] Robel COLON PATIENT Selected Encounter This section includes the information on record at OR for the Encounter. Date/Time Encounter Type Encounter Description Reason Provider Source Aug 20, 2024 01:45 PM GROUP THERAPEUTIC PROCEDURES PHYSICAL THERAPY ICD-10-CM J44.89 Other specified chronic obstructive pulmonary disease SUSI ROWLEY Encounter Template Text not used by OR Assessments - Encounter Diagnoses This section includes the primary and secondary diagnoses documented for the Encounter. Date/Time Primary/Secondary Diagnosis Diagnosis Name Provider Source Aug 20, 2024 02:56 PM PRIMARY Other specified chronic obstructive pulmonary disease SUSI ROWLEY [facility] Plan of Treatment: Future Appointments (+ 6 months) and Future Tests (+/- 45 days) The Plan of Treatment section includes future care activities for the [facility] This section includes future appointments and future orders which are active, pending or scheduled. Future Appointments This section includes appointments that were scheduled to occur 6 months from the date of the Encounter, up to a maximum of 20 appointments. The data comes from all [facility]. Appointment Date/Time Appointment Type Appointme nt Facility Name Aug 22, 2024 01:00 PM AMBULATORY - REHAB MEDICIN E [facility] Aug 22, 2024 02:00 PM AMBULATORY - PSYCHIATRY [facility] Aug 27, 2024 01:00 PM AMBULATORY - REHAB MEDICIN E [facility] Aug 29, 2024 01:00 PM AMBULATORY - REHAB MEDICIN E [facility] Aug 29, 2024 02:00 PM AMBULATORY - NONE [facility] Sep 03, 2024 01:00 PM AMBULATORY - REHAB MEDICIN E [facility] Sep 03, 2024 02:00 PM AMBULATORY - REHAB MEDICIN E [facility] Sep 05, 2024 01:00 PM AMBULATORY - REHAB MEDICIN E [facility] Sep 05, 2024 02:00 PM AMBULATORY - PSYCHIATRY [facility] Sep 10, 2024 01:00 PM AMBULATORY - REHAB MEDICIN E [facility] Sep 12, 2024 01:00 PM AMBULATORY - REHAB MEDICIN E [facility] Sep 12, 2024 02:00 PM AMBULATORY - NONE [facility] Sep 17, 2024 01:00 PM AMBULATORY - REHAB MEDICIN E [facility] Sep 17, 2024 02:00 PM AMBULATORY - REHAB MEDICIN E [facility] Sep 19, 2024 01:00 PM AMBULATORY - REHAB MEDICIN E [facility] Sep 19, 2024 02:00 PM AMBULATORY - PSYCHIATRY [facility] Sep 24, 2024 01:00 PM AMBULATORY - REHAB MEDICIN E [facility] Sep 26, 2024 01:00 PM AMBULATORY - REHAB MEDICIN E [facility] Sep 26, 2024 02:00 PM AMBULATORY - NONE [facility] Oct 01, 2024 01:00 PM AMBULATORY - REHAB MEDICIN E [facility] Active, Pending, and Scheduled Orders This section includes a listing of several types of active, pending, and scheduled orders, including clinic medications orders, diagnostic test orders, procedure orders and consult orders; where the start date of the order is 45 days before the date of the Encounter or 45 days after the date of theEncounter. The data comes from all OR treatment facilities. Test Date/Time Test Type Test Details Facility Name Aug 14, 2024 12:37 PM Consult Order ENDO THYRO ID DISEASE OUTPATIENT [facility] Carriage Feeder[facility] Choice [facility] Lab Results: +/- 30 days of the encounter This section includes the Chemistry and Hematology Lab Results on record with OR for the patient. Radiology Reports and Pathology Reports are provided separately, in subsequent sections. Lab Results This section contains the Chemistry/Hematology Results that were resulted 30 days before or 30 daysafter the date of the Encounter. Date/Time Source Result Type Result - Unit Interpretation Reference Range Comment Aug 14, 2024 05:53 PM [facility] RESPIRATORY PCR PANEL Specimen Type: NASOPHARYNX Comment: The [employer] RP Panel combines nested multiplex PCR and [...] the clinician evaluating the patient. Masoud TIPTON, (702) Ordering Provider: COLBY HERNANDEZ Report Released Date/Time: Aug 14, 2024 10:22 AM Reporting Lab: [facility] [address] [facility] [address] Performing Lab: [place] [address] [facility] [address] *Adenovirus (BF) Not Detected Not Detected *Coronavirus [...] Not Detected Aug 01, 2024 09:13 AM [facility] TOTAL T3 (STL-PB) Specimen Type: PLASMA No comment entered. Ordering Provider: COLBY HERNANDEZ Report Released Date/Time: Jul 30, 2024 01:22 PM Reporting Lab: [place] [address] [facility] [address] Performing Lab: [place] [address] [facility] [address] TOTAL T3 (STL-PB) 119.24 ng/dL 58-159 Jul 23, 2024 11:16 AM [facility] MICRAL/CREAT PROFILE (STL) Specimen Type: URINE No comment entered. Ordering Provider: COLBY HERNANDEZ Report Released Date/Time: Jul 16, 2024 02:46 PM Reporting Lab: [place] [address] [facility] [address] Performing Lab: [facility] [address] [facility] [address] URINE ALBUMIN (PB-STL) 6.3 mg/L uACR (STL) 19 mg/g 0-29 CREATININE URINE/OTHERS 33.7 mg/dL L 63-166 Jul 23, 2024 11:03 AM [facility] ALPHA-1 ANTITRYPSIN (STL-PB) Specimen Type: PLASMA No comment entered. Ordering Provider: INGRID VILLARREAL Report Released Date/Time: Jul 23, 2024 10:40 AM Reporting Lab: [address] [address] Performing Lab: [address] [address] ALPHA-1 ANTITRYPSIN (L-PB) 230 mg/dL H 84-200 Jul 23, 2024 11:03 AM [facility] LIPID PANEL (L) Specimen Type: PLASMA Comment: No hemolysis noted. Ordering Provider: COLBY HERNANDEZ Report Released Date/Time: Jul 16, 2024 02:46 PM Reporting Lab: [address] [address] Performing Lab: [address] [address] CHOLESTEROL 94 mg/dL 0-200 TRIGLYCERIDE 112 mg/dL 0-150 CALCULATED LDL 40 mg/dL HDL(New) 32 mg/dL L >40 Jul 23, 2024 11:03 AM [facility] COMPREHENSIVE METABOLIC PANEL Specimen Type: PLASMA Comment: No hemolysis noted. Ordering Provider: COLBY HERNANDEZ Report Released Date/Time: Jul 16, 2024 02:46 PM Reporting Lab: [address] [address] Performing Lab: [address] [address] CREATININE 0.90 mg/dL 0.7-1.3 UREA NITROGEN 16.8 [...] 88.5 >60 Jul 23, 2024 11:03 AM [facility] HGA1C Specimen Type: BLOOD No comment entered. Ordering Provider: COLBY HERNANDEZ Report Released Date/Time: Jul 16, 2024 02:46 PM Reporting Lab: [address] [address] Performing Lab: [address] [address] HGA1C 6.2 H 4.0-6.0 Jul 23, 2024 11:03 AM [facility] TSH W/ REFLEX FT4 (STL) Specimen Type: PLASMA No comment entered. Ordering Provider: COLBY HERNANDEZ Report Released Date/Time: Jul 16, 2024 02:46 PM Reporting Lab: [address] [address] Performing Lab: [address] [address] TSH 0.052 u[IU]/mL L 0.47-5 FREE T4(REFLEX) 1.27 ng/mL 0.7-1.48 Jul 23, 2024 11:03 AM [facility] CBC Specimen Type: BLOOD No comment entered. Ordering Provider: COLBY HERNANDEZ Report Released Date/Time: Jul 16, 2024 02:46 PM Reporting Lab: [address] [address] Performing Lab: [address] [address] WBC 8.4 10*3/uL 3.6-11.2 RBC 5.34 10*6/uL [...] NORMRBC Yes Jul 23, 2024 11:03 AM [facility] IMMUNOGLOBULIN E Specimen Type: SERUM Comment: Test Performed by [facility], [address] [place] [address] Bandar De La Garza M.D., Ph.D., Director of Laboratories , CLIA [id number] Ordering Provider: INGRID VILLARREAL Report Released Date/Time: Jul 23, 2024 10:40 AM Reporting Lab: [facility] [address] [facility] [address] Performing Lab: [facility] [address] [facility] IMMUNOGLOBULIN E 52 kU/L <=114 Vital Signs: All taken on the encounter date This section contains inpatient and outpatient Vital Signs collected on the date of the Encounter. Date/Time Temperature Pulse Blood Pressure Respiratory Rate SP02 Pain Height Weight Body Mass Index Source Aug 20, 2024 01:00 PM 64 147/71 95 [facility] Radiology Reports: +/- 30 [...] the Encounter. The data comes from all OR treatment facilities. Date/Time Radiology Report Provider Source Jul 23, 2024 10:46 AM CHEST X-RAY, 2 VIE WS: HARISPATRICK JAMIE [id number] -1950 M Exm Date: JUL 23, 2024@10:46 Req Phys: NIKO VILLARREAL Loc: [facility] (Req'g Img Loc: [facility]MAIN RADIOLOGY SUITE Service: [address] [address] (Case [id number] COMPLETE) CHEST X-RAY, 2 VIEWS (RAD Detailed) CPT:98835 Reason for Study: pleural effusion Clinical History: [...] HAYDER BOWMAN Staff Physician (Car) /HAYDER PATEL [facility] Encounter Notes: All associated encounter notes This section contains the clinical notes associated to the Encounter. Date/Time Encounter Note(s) Provider Source Aug 20, 2024 02:48 PM PHYSICAL MEDICINE REHAB NOTE: LOCAL TITLE: PT DAILY STL STANDARD TITLE: PHYSICAL MEDICINE REHAB NOTE DATE OF NOTE: AUG 20, 2024@14:48 ENTRY DATE: AUG 20, 2024@14:48:40 AUTHOR: SUSI ROWLEY COSIGNER: URGENCY: STATUS: COMPLETED RUI PT SESSION Per Dr. Ricky FABIAN Consult dated 08/01/24 Mr. Colon is referred by the pulmonary clinic and see their notes for full detials. Briefly, he is a 74-year-old man with severe COPD (FEV1 of 1.00 liters - 2*% predicted) requiring continuous supplemental oxygen. He was admitted to [facility] in July 2023 with acute respiratory failure [...] glaucoma, and diabetes. He worked in a [employer]. 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 He quit smoking in April 2023 after approximately [id number] smoking history. Treatment time: 15 mins. 1x group Rehab Service: [] Cardiac [x]Pulmonary Referring provider: Dr. Sung García Diagnosis: Other specified chronic obstructive pulmonary disease(ICD-10-CM J44.89) PT Eval Date: 08/15/24 CARP start Date: 08/15/24 PT Re-evaluation /PN Date: 09/15/24 # of sessions: 3 Height - 73 in [185.4 cm] (05/07/2024 09:52) Weight - 202 lb [91.63 kg] (08/14/2024 09:53) PMH: 1) HTN - Hypertension ([facility] [id number]) 2) GERD - Gastro-Esophageal Reflux Disease ([facility] [id number]) 3) Constipation ([facility] [id number]) 4) Prostate cancer 5) Chronic obstructive lung disease 6) Carotid Artery Stenosis ([facility] [id number]) 7) Glaucoma 8) Prediabetes 9) Vitamin D Deficiency ([facility] [id number]) 10) Exposure to potentially hazardous substance 11) Obstructive Sleep Apnea of Adult ([facility] [id number]) 12) Chronic diastolic heart failure 13) CAD - Coronary Artery Disease ([facility] [id number]) Subjective: Vet is without complaints. Pain: mild pain L knee, none at rest. Current Exercise Regimen: kareem quevedo (previous [place] member) Available Equipment: None. 's goals for CARP program: reduce dyspnea with stair climbing (SOBQ 4 Severe ) Objective: Vet arrived in the clinic ambulatory without an AD in NAD, on 3L pulsed portable concentrator [place] placed on telemetry monitoring for evaluation. Vital signs: BP HR SpO2- 3 L/min dyspnea pre activity 147/71 64 95 1 post aerobic 165/77 68 93 post-strength 158/72 59 95 1 -Comments: pt switched to continous 3 LO2 Treatment: Education -reviewed appropriate progression to achieve 11-13/20 DUGLAS RPE with strength training -reviewed importance of good technique/posture -reviewed goal is 10-15 reps Strength training Group Ther Ex led by PT Band seated LE RROM with [x] yellow [] red [] green [] blue Theraband for 15 reps of the following: marches hamstring curls LAQ's clamshells Duglas RPE 8-9/20 Dyspnea /10 == Education == Comprehensive EDUCATION provided: given 1:1 instruction on: Discussed the purpose of the 6MWT to assess functional exercise capacity. What to expect during treatment sessions including first day. Intervals and purpose of monitoring of vital signs during exercise Aerobic and strength training components of the CARP program and benefits of each Reviewed proper clothing (short sleeve or thin shirt for accurate BP monitoring) and footwear recommendations and what to bring when attending CARP sessions. Reviewed the Carp Exercise Orientation Booklet to include: -Different types of exercise and the components of the exercise portion of class (aerobic and strength training) to begin next session. -Monitoring and at what intervals during CARP Exercise sessions -Purpose of warm up and cool down for aerobic exercise. -Self monitoring techniques for determining exertion: DUGLAS RPE, modified duglas dyspnea, test for dyspnea -Warning signs/symptoms to terminate exercise chest pain/pressure, pain which radiates to the neck, jaw or arms, unusual shortness of breath, weakness, unusual sweating, lightheadedness or dizziness, and nausea or vomiting) Instructed to stop and alert staff immediately for evaluation. [place]'s goals PT plan of care Rationale of PT Individualized Treatment Plan: Exercise Assessment [...] and strength training, concluding with cool-down stretching. (x)[place] will be monitored via telemetry for heart [...] to Being Physically Active and Energy Conservation - Exercise Prescription - Mode (x)NuStep / SciFit Recumbent Bike ()Arm Ergometer (x)Treadmill (x)Strength Training (Resistance Bands) Frequency 2 days per week, supervised in [facility] Duration 60 Minutes per session Intensity (based on Peak VO2) (x)Light to Moderate-Intensity ()Moderate to High-Intensity demonstrated/verbalized/reca lled understanding of above education. Barriers to learning: [x]none []needs reinforcement []cognitive deficits []aphasia []low medical understanding []resistant to education [] Hard of Hearing == Assessment: 74 y/o referred to [facility] with severe COPD and dyspnea on exertion. 06/29 NSTEMI c stent to RCA, 07/30 acute respiratory failure HFpEF and Severe COPD. Wears 3L pulsed with exertion, sometimes RA-3L at rest depending on symptoms. Vet tolerated initiation of lower body strength training with use of yellow band well, however RPE is below target range. Will increase to red theraband next session or consider standing.. No reports of chest pressure throughout session. Equipment Provided: Problems identified: [x] Impaired oxygen [...] light exertion *Pt.to demonstrate ability to using DUGLAS and dyspnea scale independently *Improve chronic disease state knowledge and self-care ability *Pt to tolerate aerobic and strength training work at 10-12/20 DUGLAS alf 8-9 weeks *Improve Health-Related Quality of Life Perceptions (RAND SF-36) * to demonstrate working knowledge of safe exercise guidelines and principles for progression. *Pt to demonstrate improvement in submax exericse test by MCID *Pt to tolerate aerobic and strength training at - DUGLAS *Pt will improve SOBQ by MCID of 5 units demonstrating improvement in shortness of breath severity during ADLs. Plan: Pt to begin CARP protocol on 08/15/24, twice a week for a total of 9 weeks, progressing as tolerated, and educating about safe exercise principles, self-care, and disease management. Monitor for signs/symptoms of ischemia or anginal equivalents. UE-progress to red to achieve appropriate Duglas RPE, monitor technique LE-progress to red or consider standing /es/ SUSI ROWLEY DPT, GCS Signed: 08/20/2024 14:56 SUSI ROWLEY [facility]
--- OUTSIDE RECORDS SUMMARY | 2024-09-01 12:57 | XMS_ITS | Encounter Summary ---
Author Name [facility] [place] Organization [facility] [place] [place] Address [address] [place] [id number] Care Team Providers Care Precision Agriculture Technician Name Role Phone COLBY HERNANDEZ Primary Care [...] Mullen's Name Patient's Relationship to Policy Mullen [facility] (WNR) MEDICARE ADVANTAGE [facility] (WNR) Jun 05, 2022 [id number] Robel COLON PATIENT [facility] (WNR) MEDICARE ADVANTAGE [facility] (WNR) Jun 05, 2022 [id number] Robel COLON PATIENT [facility] (WNR) MEDICARE ADVANTAGE [facility] (WNR) Jun 05, 2022 [id number] Robel COLON PATIENT Selected Encounter This section includes the information on record at [place] for the Encounter. Date/Time Encounter Type Encounter Description Reason Provider Source Feb 12, 2024 09:37 AM Outpatient Encounter CARDIOLOGY ICD-10-CM I95.0 Idiopathic hypotension OU,JIAFU IHE Encounter Template Text not used by [place] Assessments - Encounter Diagnoses This section includes the primary and secondary diagnoses documented for the Encounter. Date/Time Primary/Secondary Diagnosis Diagnosis Name Provider Source Feb 12, 2024 10:20 AM PRIMARY Idiopathic hypotension OU,JIAFU [facility] Plan of Treatment: Future Appointments (+ 6 months) and Future Tests (+/- 45 days) The Plan of Treatment section includes future care activities for the patient from all [place] [facility]. This section includes future appointments and future orders which are active, pending or scheduled. Future Appointments This section includes appointments that were scheduled to occur 6 months from the date of the Encounter, up to a maximum of 20 appointments. The data comes from all [facility]. Appointment Date/Time Appointment Type Appointme nt Facility Name Feb 27, 2024 09:30 AM AMBULATORY - MEDICINE [facility] Feb 27, 2024 10:30 AM AMBULATORY - NONE [facility] Apr 26, 2024 10:30 AM AMBULATORY - MEDICINE [facility] May 07, 2024 10:00 AM AMBULATORY - MEDICINE [facility] Jun 21, 2024 10:00 AM AMBULATORY - MEDICINE [facility] Jul 03, 2024 01:00 PM AMBULATORY - MEDICINE [facility] Jul 23, 2024 10:00 AM AMBULATORY - MEDICINE [facility] Aug 05, 2024 10:00 AM AMBULATORY - MEDICINE [facility] Aug 06, 2024 09:00 AM AMBULATORY - REHAB MEDICIN E [facility] Active, Pending, and Scheduled [...] VITAMIN D, 25-HYDROXY GOLD/RED SST SERUM SP [facility] Encounter Notes: All associated encounter notes This section contains the clinical notes associated to the Encounter. Date/Time Encounter Note(s) Provider Source Feb 12, 2024 09:37 AM CARDIOLOGY NOTE: LOCAL TITLE: CARDIOLOGY CHART REVIEW ST STANDARD TITLE: CARDIOLOGY NOTE DATE OF NOTE: FEB 12, 2024@09:37 ENTRY DATE: FEB 12, 2024@09:37:22 AUTHOR: MELVIN ROMERO COSIGNER: URGENCY: STATUS: COMPLETED Records from [facility]iology was received and reviewed as below. [facility] DATE OF VISIT: 01/18/2024 CHIEF COMPLAINT: 4 months follow up Mc Colon is a 73y.o. male with past medical history of COPDI hypertension, GERD who was referred to [facility] on July 28, 2023 because he was found hypoxic 70% on room air. Patient endorses that he quit smoking 3 months prior to that and ho quit drinking 5 years prior to that. He was found to have bilateral lower extremity edema. Denied chest pain, dizziness or syncope. He was maintaining sinus rhythm on telemetry. His EKG which was reviewed analyzed myself shows sinus bradycardia with sinus arrhythmia, Creatinino was 1.25, brain atretic peptide 3800, troponins 41, 27,38, D-dimor 830 with negative viral panel. Underwent MELANY thorax that showed no evidence of pulmonary embolism but showed right atrial enlargement with small bilateral pleural effusions, multifocal pneumonia in the right lung. Mild splenomegaly. Echocardiogram done during hospitalization shows ejection fraction 60%, mild LVH, RVSP 49 mild tricuspid regurgitation. During the hospitalization his blood pressure was on the low side and started on mldodririe 10 mg t.i.d. and then he was given IV Lasix and then transitionod to p.o. Lasix, Jardiance and potassium chloride. After discharge from the hospital romie did follow at the [facility] and had blood work done and was told that blood looks okay. He has not taking midodrine anymore and his blood pressure today 126/84. He Is not taking potassium chloride as well. He is wearing oxygen. Denies lower extremity edema, chest pain, dizziness or syncope. 01/18/2024 - returns for follow-up appointment. Denies chest pain, dizziness, syncope, lower extremity edema. One episode of palpitations a month ago lasting for about a couple hours with no recurrence. He is on 2 L nasal cannula, Continues to abstain from tobacco and alcohol. No past medical history on file. History reviewed. No pertinent surgical history. Social History Tobacco Use Smoking status: Former Types: Cigarettes ? Smokeless tobacco: None Substance and Sexual Activity ? Drug use: None ? Sexual activity: None Alcohol Use: Not At Risk (07/31/2023) AUDiT-C Frequency of Alcohol Consumption: Never Average Number of Drinks: Patient does not drink Frequency of Binge Drinking: Never Current Outpatient Medications Medication ? aspirin 81 mg chewable tablet Take I tablet (81 mg total) by mouth daily 'empagliflozin (JARDIANCE) 10 mg tablet Take I tablet (10 mg total) by mouth daily nboetvhmzzm-weupivpceu-ncauowou (Irelegy Ellipta) 100-62.5-25 mcg inhaler Inhale 1 puff daily Dispense Refill furosemide (LASIX) 40 mg tablet total (30 tablet) Take I tablet (40 mg) by mouth daily 'latanoprost (XALATAN) 0.005 % ophthalmic solution Administer I drop into both eyes nightly pantoprazole DR (PROTONIX) 40 mg EC tablet Take I tablet (40 mg total) by mouth every other day ? albuterol HFA (PROVENTIL HFA,VENTOLIN HFA,PROAIR HFA) 90 mcg/actuation inhaler Sig Inhale 2 puffs every 4 (four) hours as needed for shortness of breath or wheezing rosuvastatin (CRESTOR) 40 mg Take 0,5 tablets (20 mg total) by mouth tiotroplum bromide Yes Inhale 25 mcgtactuatlon inhaler NKDA Review of Systems Constitutional: Positive for malaise/fatiguo. Negative for chills and fever. HENT: Negative for congestion and sore throat. Eyes: Negative for blurred vision and double vision. Cardiovascular: Positive for dyspnoa on exertion. Negative for chest pain, claudication, leg swelling, nearsyncope, orthopnea, palpitations, paroxysmal nocturnal dyspnoa and syncope. Respiratory: Positive for cough arid shortness of breath, Negative for hemoptysis, snoring, sputum production and wheezing. Endocrine: Negative for cold intolerance and polyuria. Hematologic/Lymphatic: Negative for bleeding problem. Does not bruise/bleed easily. Skin: Negative for itching and rash. Musculoskeletal: Negative for back pain, joint pain and joint swelling. Gastrointestinal: Negative for abdominal pain, diarrhea, nausea arid vomiting. Genitourinary: Negative for dysuria, frequency and hematuria, Neurological: Negative for focal weakness, headaches and light-headedness. Psychiatric/Behavioral: Negative for depression. The patient is rit nervous/anxious, Allergic/Immunologic: Negative for environmental allergies and hives. There were no vitals taken for this visit. There is no height or weight on file to calculate SMI. Physical Exam Constitutional: General: He is not in acute distress, Appearance: He is well-developed. HENT: Head: Normocephalic and atraumatie, Right Ear: External ear normal. Left Ear: External ear normal. General: No scleral icterus. Left eye: No discharge. Conjunctiva/solera: Conjunctivae normal. Neck; Thyroid: No thyromegaly. Cardiovascular: Rate and Rhythm: Normal rate and regular rhythm. Heart sounds: Normal heart sounds. No murmur heard, No friction rub. No gallop. Pulmonary: Effort: Pulmonary effort is normal. No respiratory distress. Chest: Chest vll: No tenderness. Abdominal: General: There is no distension, Palpations: Abdomen is soft, There is no mass. Tenderness: There is no abdominal tenderness. Musculoskeletal: General: No tenderness or deformity. Cervical back: Normal range of motion and neck supple. Right lower leg: No edema. Left lower leg: No edema. Skin: General: Skin is warm. Findings: No erythema or rash. Neurological: Mental Status: He is alert and oriented to person, place, and time, Motor: No abnormal muscle tone. Psychiatric: Mood and Affect: Mood normal. Lab Results Component Value Date WBC 7.9 08/02/2023 HGB 13.8 08/02/2023 HCT 47.0 08/02/2023 MCV 95.9 08/02/2023 omponent Value Date/Time Component Value Date/Time SODIUM 140 08/06/2023 CALCIUM 9.0 ' O3I08/2023 0838 0638 POTASSIUM 3.9 ALKPHOS 67 07/28/2023 0638 1107 CHLORIDE 100 08/06/2023 AST 34 07/28/2023 0638 1107 C02 34 (H) ALT 16 07/28/2023 0638 1107 BUNSER 30 (H) 08/06/2023 BILITOT 0.6 07/28/2023 0638 1107 CREATININE 1.07 08/06/2023 0838 GLUCOSE 101 08/06/2023 0638 Diagnoses and all orders for this visit: Idiopathic hypotension (Primary) Chronic diastolic congestive heart failure (CMSIHCC) (HCC) History of tobacco abuse Other emphysema (1.1CC) Recommendation: In regards to thronc diastolic heart failure, was diagnosed July 2022, His echocardiogram that time shows ejection fraction 60% with no valvular abnormalities. Currently appears to be euvolemic on Lasix 40 mg daily and Jardiance. He is not taking potassium chloride. Had blood work done at the [place] end of August and was informed that no action needed. Continue Lasix and Jardiance. lsohemic evaluation will be considered next visit. Patient does have an appointment to follow up with his PCP at the [place] in 3 weeks and informed hIm 1 need a basic metabolic panel, In regards to idiopathic hypotension, during hospitalization at [facility] for CHF he was hypotensive and started on midodrine. However he has no longer taking midodrine and his blood pressure today 126/84. Denies dizziness. In regards to history of tobacco abuse, long history of tobacco abuse but quit back in May 2023. In regards to underlying COPO wfth chronic hypoxemic respiratory failure, continue home oxygen. In regards to dyslipidemia, lipid screening done today 2023 shows LDL 87, HDL 41 and triglycerides 90 continue Creator. Follow up in the office in in 6 months, Ryan Yepez MD diagnosis: Idiopathic hypotension He is scheduled to see me on 02/27/24 15 min is spent on this encounter /es/ MELVIN ROMERO MD,[facility] STAFF ADULT SCHOOL TEACHER Signed: 02/12/2024 10:21 MELVIN ROMERO [facility]
--- OUTSIDE RECORDS SUMMARY | 2024-09-01 12:57 | XMS_ITS | Encounter Summary ---
Author Name [facility] [place] Organization [place] Address [address] [place] [address] Care Team Providers Care Stereo Operator Name Role Phone COLBY HERNANDEZ Primary Care [...] Mullen [facility] (WNR) MEDICARE ADVANTAGE [facility] ([facility]) Jun 05, 2022 [id number] Robel CARBALLO PATIENT [facility] (WNR) MEDICARE ADVANTAGE [facility] (WNR) Jun 05, 2022 [id number] Robel CARBALLO PATIENT [facility] (WNR) MEDICARE ADVANTAGE [facility] ([place]) Jun 05, 2022 [id number] Robel CARBALLO PATIENT Selected Encounter This section includes the information on record at [place] for the Encounter. Date/Time Encounter Type Encounter Description Reason Pro vider Source IHE Encounter Template Text not used by [facility]
--- OUTSIDE RECORDS SUMMARY | 2024-09-01 12:57 | XMS_ITS | Encounter Summary ---
Author Name [facility] [place] Organization [facility] [place] Address [address] [place] [id number] Care Team Providers Care Front Desk Person Name Role Phone COLBY HERNANDEZ Primary Care [...] Mullen's Name Patient's Relationship to Policy Mullen [facility] (WNR) MEDICARE ADVANTAGE [facility] (WNR) Jun 05, 2022 [id number] Robel CARBALLO PATIENT [facility] (WNR) MEDICARE ADVANTAGE [facility] (WNR) Jun 05, 2022 [id number] Robel CARBALLO PATIENT [facility] (WNR) MEDICARE ADVANTAGE [facility] (WNR) Jun 05, 2022 [id number] Robel CARBALLO PATIENT Selected Encounter This section includes the information on record at [place] for the Encounter. Date/Time Encounter Type Encounter Description Reason Provider Source Aug 06, 2024 09:00 AM Outpatient Encounter CARDIO-PULM REHAB ICD-10-CM J44.9 Chronic obstructive pulmonary disease, unspecified LAWSON CORONA Encounter Template Text not used by [place] Assessments - Encounter Diagnoses This section includes the primary and secondary diagnoses documented for the Encounter. Date/Time Primary/Secondary Diagnosis Diagnosis Name Provider Source Aug 06, 2024 09:56 AM PRIMARY Chronic obstructive pulmonary disease, unspecified LAWSON CORONA [facility] Aug 06, 2024 09:56 AM SECONDARY Athscl heart disease of [place] coronary artery w/o ang pctrs LAWSON CORONA [facility] Plan of Treatment: Future Appointments (+ 6 months) and Future Tests (+/- 45 days) The Plan of Treatment section includes future care activities for the patient [facility] [place] [facility] This section includes future appointments and future orders which are active, pending or scheduled. Future Appointments This section includes appointments that were scheduled to occur 6 months from the date of the Encounter, up to a maximum of 20 appointments. The data comes from all [place] treatment facilities. Appointment Date/Time Appointment Type Appointme nt Facility Name Aug 14, 2024 10:00 AM AMBULATORY - MEDICINE [facility] Aug 15, 2024 11:00 AM AMBULATORY - REHAB MEDICIN E [facility] Aug 15, 2024 01:00 PM AMBULATORY - REHAB MEDICIN E [facility] Aug 15, 2024 02:00 PM AMBULATORY - NONE [facility] Aug 20, 2024 01:00 PM AMBULATORY - REHAB MEDICIN E [facility] Aug 20, 2024 02:00 PM AMBULATORY - REHAB MEDICIN E [facility] Aug 22, 2024 01:00 PM AMBULATORY - REHAB MEDICIN E [facility] Aug 22, 2024 02:00 PM AMBULATORY - PSYCHIATRY [facility] Aug 27, 2024 01:00 PM AMBULATORY - REHAB MEDICIN E [facility] Aug 29, 2024 01:00 PM AMBULATORY - REHAB MEDICIN E [facility] Aug 29, 2024 02:00 PM AMBULATORY - NONE [facility] Sep 03, 2024 01:00 PM AMBULATORY - REHAB MEDICIN E [facility] Sep 03, 2024 02:00 PM AMBULATORY - REHAB MEDICIN E [facility] Sep 05, 2024 01:00 PM AMBULATORY - REHAB MEDICIN E [facility] Sep 05, 2024 02:00 PM AMBULATORY - PSYCHIATRY [facility] Sep 10, 2024 01:00 PM AMBULATORY - REHAB MEDICIN E [facility] Sep 12, 2024 01:00 PM AMBULATORY - REHAB MEDICIN E [facility] Sep 12, 2024 02:00 PM AMBULATORY - NONE [facility] Sep 17, 2024 01:00 PM AMBULATORY - REHAB MEDICIN E [facility] Sep 17, 2024 02:00 PM AMBULATORY - REHAB MEDICIN E [facility] Active, Pending, and Scheduled Orders This section includes a listing of several types of active, pending, and scheduled orders, including clinic medications orders, diagnostic test orders, procedure orders and consult orders; where the start date of the order is 45 days before the date of the Encounter or 45 days after the date of theEncounter. The data comes from all [place] treatment facilities. Test Date/Time Test Type Test Details Facility Name Aug 14, 2024 12:37 PM Consult Order ENDO THYRO ID DISEASE OUTPATIENT [facility] Wash Worker[facility] Lab Results: +/- 30 days of the encounter This section includes the Chemistry and Hematology Lab Results on record with [facility] for the [facility]. Radiology Reports and Pathology Reports are provided separately, in subsequent sections. Lab Results This section contains the Chemistry/Hematology Results that were resulted 30 days before or 30 daysafter the date of the Encounter. Date/Time Source Result Type Result - Unit Interpretation Reference Range Comment Aug 14, 2024 05:[address] [facility] RESPIRATORY PCR PANEL Specimen Type: NASOPHARYNX Comment: The Night UpArray RP Panel combines nested multiplex PCR and [...] available to the clinician evaluating the patient. [employer], Night UpAaliyah Johnson, (203) Ordering Provider: COLBY HERNANDEZ Report Released Date/Time: Aug 14, 2024 10:22 AM Reporting Lab: [facility] [address] [facility] [facility] [address] Performing Lab: [facility] [address] [facility] [facility] [facility] [address] *Adenovirus (BF) Not Detected Not Detected *Coronavirus [...] Not Detected Aug 01, 2024 09:13 AM [facility] TOTAL T3 (STL-PB) Specimen Type: PLASMA No comment entered. Ordering Provider: COLBY HERNANDEZ Report Released Date/Time: Jul 30, 2024 01:22 PM Reporting Lab: [facility] [address] [facility] [facility] [address] Performing Lab: [facility] [address] [place] [address] TOTAL T3 (STL-PB) 119.24 ng/dL 58-159 Jul 23, 2024 11:16 AM [facility] MICRAL/CREAT PROFILE (STL) Specimen Type: URINE No comment entered. Ordering Provider: COLBY HERNANDEZ Report Released Date/Time: Jul 16, 2024 02:46 PM Reporting Lab: [address] [address] Performing Lab: [address] [address] URINE ALBUMIN (PB-STL) 6.3 mg/L uACR (STL) 19 mg/g 0-29 CREATININE URINE/OTHERS 33.7 mg/dL L 63-166 Jul 23, 2024 11:03 AM [facility] ALPHA-1 ANTITRYPSIN (STL-PB) Specimen Type: PLASMA No comment entered. Ordering Provider: INGRID VILLARREAL Report Released Date/Time: Jul 23, 2024 10:40 AM Reporting Lab: [address] [address] Performing Lab: [address] [address] ALPHA-1 ANTITRYPSIN (STL-PB) 230 mg/dL H 84-200 Jul 23, 2024 11:03 AM [facility] LIPID PANEL (L) Specimen Type: PLASMA Comment: No hemolysis noted. Ordering Provider: COLBY HERNANDEZ Report Released Date/Time: Jul 16, 2024 02:46 PM Reporting Lab: [address] [address] Performing Lab: [address] [address] CHOLESTEROL 94 mg/dL 0-200 TRIGLYCERIDE 112 mg/dL 0-150 CALCULATED LDL 40 mg/dL HDL(New) 32 mg/dL L >40 Jul 23, 2024 11:03 AM [facility] COMPREHENSIVE METABOLIC PANEL Specimen Type: PLASMA Comment: No hemolysis noted. Ordering Provider: COLBY HERNANDEZ Report Released Date/Time: Jul 16, 2024 02:46 PM Reporting Lab: [address] [address] Performing Lab: [address] [place] [address] CREATININE 0.90 mg/dL 0.7-1.3 UREA NITROGEN 16.8 [...] 88.5 >60 Jul 23, 2024 11:03 AM [facility] HGA1C Specimen Type: BLOOD No comment entered. Ordering Provider: COLBY HERNANDEZ Report Released Date/Time: Jul 16, 2024 02:46 PM Reporting Lab: [address] [address] Performing Lab: [address] [address] HGA1C 6.2 H 4.0-6.0 Jul 23, 2024 11:03 AM [facility] TSH W/ REFLEX FT4 (STL) Specimen Type: PLASMA No comment entered. Ordering Provider: COLBY HERNANDEZ Report Released Date/Time: Jul 16, 2024 02:46 PM Reporting Lab: [address] [address] Performing Lab: [address] [address] TSH 0.052 u[IU]/mL L 0.47-5 FREE T4(REFLEX) 1.27 ng/mL 0.7-1.48 Jul 23, 2024 11:03 AM [facility] CBC Specimen Type: BLOOD No comment entered. Ordering Provider: COLBY HERNANDEZ Report Released Date/Time: Jul 16, 2024 02:46 PM Reporting Lab: [facility] [address] [facility] [address] Performing Lab: [facility] [address] [facility] [address] WBC 8.4 10*3/uL 3.6-11.2 RBC 5.34 10*6/uL [...] NORMRBC Yes Jul 23, 2024 11:03 AM [facility] IMMUNOGLOBULIN E Specimen Type: SERUM Comment: Test Performed by [facility], [facility], [address] [place] [address] Bandar De La Garza M.D., Ph.D., Director of Laboratories , CLIA [id number] Ordering Provider: INGRID VILLARREAL Report Released Date/Time: Jul 23, 2024 10:40 AM Reporting Lab: [facility] [address] [facility] [address] Performing Lab: [facility] [address] [facility] IMMUNOGLOBULIN E 52 kU/L <=114 Radiology Reports: [...] the Encounter. The data comes from all [place] treatment facilities. Date/Time Radiology Report Provider Source Jul 23, 2024 10:46 AM CHEST X-RAY, 2 VIE WS: PATRICK CARBALLO [id number] Exm Date: JUL 23, 2024@10:46 Req Phys: NIKO VILLARREAL Loc: [facility]-PULMONARY DEMIDENKO (Req'g Img Loc: [facility]-MAIN RADIOLOGY SUITE Service: [address] [address] (Case [id number] COMPLETE) CHEST X-RAY, 2 VIEWS (RAD Detailed) CPT:69726 Reason for Study: pleural effusion Clinical History: [...] HAYDER BOWMAN Staff Physician (Car) /HAYDER PATEL [facility] Encounter Notes: All associated encounter notes This section contains the clinical notes associated to the Encounter. Date/Time Encounter Note(s) Provider Source Aug 06, 2024 04:14 PM ADDENDUM: LOCAL TITLE: Addendum STANDARD TITLE: ADDENDUM DATE OF NOTE: AUG 06, 2024@16:14:14 ENTRY DATE: AUG 06, 2024@16:14:16 AUTHOR: LAWSON CORONA COSIGNER: URGENCY: STATUS: COMPLETED Initial Individualized Treatment Plan Oxygen Assessment ()Prescribed: O2 L/min @ rest L/min @ exertion ((X)) Room Air ((X))Oxygen use & Titration Plan Goals -Will be able to self-administer O2 based on needs. -Decrease breathlessness as measured on the Dyspnea Scale. -Be free of respiratory complications associated with exercise. -Maintain oxygen saturation 90% or greater. -Demonstrate correct technique with purse-lip and diaphragmatic breathing. -Demonstrate correct use of inhalers. -Increase functional capacity as measured on the 6-minute walk pre/post rehab. Interventions -Monitor respiratory status for complications associated with exercise. -Measure oxygen saturation and supplement as needed to maintain Sa02 90% or greater. -Measure walking distance pre and post rehab during the 6 Minute Walk Test. -Attend exercise and education sessions. -Educational Classes -Medications Exercise Assessment ((X))6MWT ()SubMax Test ()Unable to Complete ((X))Exercise Plan First Date of Exercise 08/15/2024 Goals -Establish a home exercise program. -Demonstrate safe exercise. -Attend exercise and education sessions. -Aerobic exercise 20-30 minutes per session, for a progressive total of 150 minutes per week. -Perform progressive strength training 2-3 times per week. -[place] will be able to self-identify signs and symptoms of complications associated with exercise. -Report chest pain or other serious symptoms to staff at time of occurrence. Interventions -Each exercise session will consist of warm-up exercises, followed by cardiovascular and strength training, concluding with cool-down stretching. - will be monitored via telemetry for heart rate and rhythm. -Monitor and record oxygen saturation before, during, and after exercise session. -Monitor and record blood pressure before, during, and after exercise session. -Monitor and record blood sugar if diabetic. -Monitor cardiac and respiratory status for complications associated with exercise. -Educational Classes Nutrition Assessment Areas of Concern: ((X))None ()BMI ()Lab Values ()Diabetes: A1C ()Nutritional Deficiencies / Malnutrition ()Cancer ()Food Insecurity Nutritional Habits/Diets Referrals ((X))None ()Computerized Machine Fabric Cutter ()Pipe Fitter Maintenance Goals -Recognize and select healthy food choices. -Be able to read a nutrition label. -Improve A1C, cholesterol levels, lipid levels, etc. -Maintain a healthy body weight. Interventions -Review and assess for lab value improvements. -Review and assess for food insecurity and dietary concerns. -Review for weight concerns with . -Educational classes -Medications Psychological Assessment Areas of Concern ((X))None ()Food Insecurity ()Substance/Alcohol Abuse ()Sleep Inconsistencies ()Support Systems Referrals ((X))None ()Psychologist ()Pipe Fitter Maintenance Goals -Improvement on QOL survey (RAND SF-20) -Decrease the risk of substance or alcohol abuse. -Improve sleep hygiene. -Improve interpersonal relationships. Interventions -Administer and assess QOL survey (RAND SF-20) -Provide referrals for various psychosocial issues. -Educational classes -Medications [place] 36-Item Health Survey results (VR-36):(Developed at [employer] as a part of the Medical Outcomes Study) The total possible score in each of the 8 categories is 100. The higher the score, the higher the quality of life perceptions. Physical Functions: Pre:30 Post: Normal: 84.2 Role Limitations-Physical: Pre:0 Post: Normal: 81.0 Role Limitations-Emotional: Pre:33.3 Post: Normal: 81.3 Energy/Fatigue: Pre:40 Post: Normal: 60.9 Emotional Well Being: Pre:48 Post: Normal: 74.7 Social Functioning: Pre:50 Post: Normal: 83.3 Pain Levels: Pre:55 Post: Normal: 75.2 General Health: Pre:37.5 Post: Normal: 72.0 Total Average: Pre:36.7 Post: Normal: 76.6 (Exercise prescription subject to change pending 6MWT) /day/ LAWSON CORONA REGISTERED NURSE Signed: 08/06/2024 16:17 Receipt Acknowledged By: 08/07/2024 13:52 /es/ LEANNA WETZEL Staff Physician - Pulmonary 08/07/2024 07:57 /es/ Dina Todd, PT, DPT, CCS Cardio Pulm Clinical Spec 08/09/2024 07:38 /es/ SUSI ROWLEY DPT, GCS --- Original Document --- 08/06/24 CARDIOPULMONARY REHAB CONSULT ST[facility]: OUTPATIENT CARDIOPULMONARY NURSING ASSESSMENT - Mode/Assist Device Used: (X)Ambulatory Cane Wheeled Walker Wheelchair - Emergency Contact: LAKSHMI Beaversister) - Physician(s): Ricky PATIENT DATA Age: 74 BP: 132/80 Pulse: 61 (X)Reg Irreg Pulse ox: 92% 2L/NC Height: 73 in [185.4 cm] (05/07/2024 09:52) Weight:200.8 lb [91.08 kg] (07/23/2024 09:47) BMI: 26.5 Lipid Panel: TRIGLYCERIDE 112 mg/dL 07/23/2024 11:03 CHOLESTEROL 94 mg/dL 07/23/2024 11:03 HDL(New) 32 L mg/dL 07/23/2024 11:03 CALCULATED LDL 40 mg/dL 07/23/2024 11:03 Hemoglobin A1C: HGB A1C Collection DT Specimen Test Name Result Units Ref Range 07/23/2024 11:03 BLOOD HGA1C 6.2 H % 4.0 - 6.0 09/05/2023 08:05 BLOOD HGA1C 6.7 H % 4.0 - 6.0 O2 saturation: Measurement DT POx (L/MIN)(%) 07/23/2024 09:47 94[2][] 07/03/2024 12:59 96[2.0][] 05/07/2024 09:52 96[2][] 04/26/2024 10:33 96[2][] Supplemental O2: 2-3L NC Allergies: ALLERGIES/ADVERSE REACTIONS - NONE FOUND Chief Complaint: I have been more short of breath and fatigued since I had stents placed. - Problem List: 1) HTN - Hypertension ([facility] [id number]) 2) GERD - Gastro-Esophageal Reflux Disease ([facility] [id number]) 3) Constipation ([facility] [id number]) 4) Prostate cancer 5) Chronic obstructive lung disease 6) Carotid Artery Stenosis ([facility] [id number]) 7) Glaucoma 8) Prediabetes 9) Vitamin D Deficiency ([facility] [id number]) 10) Exposure to potentially hazardous substance 11) Obstructive Sleep Apnea of Adult ([facility] [id number]) 12) Chronic diastolic heart failure 13) CAD - Coronary Artery Disease ([facility] [id number]) Additional Medical History: (X) YANNA/CPAP/BIPAP Compliant:(X)Yes No (X) NE: 06/2024 w/ stent placement SYMPTOMS (X) Dyspnea (X) Cough (X) Sputum : clear (X) Chest pain : randomly at times; sometimes takes aspirin Breath Sounds: diminished bilaterally EKG Rhythm (Historical): Sinus Rhythm per ED records from [facility] in June 2024; Placed EKG order and made aware to complete EKG on 08/15/2024 prior PT eval Diabetic foot inspection: N/A Edema Yes (X)NO 1+ 2+ 3+ Pitting Alcohol/Drug Use: Denies SMOKING HISTORY: Lifetime Non-smoker Years: 50 Packs/Day: 2 Quit date: 04/2023 Secondhand smoke exposure: Yes (X)No Readiness to quit smoking: Precontemplation--no intention to change or take action within the near future Contemplation--intention to change within the next 6 months Preparation--plans to take action within the next month Action--has made significant modifications in behavior and way of life (X) Maintenance--working to prevent a relapse; confident of continuing to change - Active Outpatient Medications (including Supplies): ACCU-CHEK GUIDE (GLUCOSE) TEST STRIP USE 1 STRIP FOR BLOOD ACTIVE TEST DIRECTED *DIAGNOSIS, 50 STRIPS PER YEAR Sep ALBUTEROL 90MCG (CFC-F) 200D ORAL INHL INHALE 2 PUFFS BY ACTIVE ORAL INHALATION FOUR TIMES A DAY NEEDED SHAKE WELL. RINSE MOUTHPIECE FREQUENTLY TO PREVENT CLOGGING. Indication: FOR COPD ALCOHOL PREP PAD USE/APPLY PAD TO AFFECTED AREA(S) ONCE A ACTIVE DAY NEEDED Indication: FOR SKIN CLEANSING ASPIRIN 81MG EC TAB TAKE ONE TABLET BY MOUTH ONCE A DAY ACTIVE TAKE WITH FOOD. Indication: FOR CARDIOVASCULAR DISEASE AZELASTINE 137MCG/SPRAY 200D NASAL INHL SPRAY 1 SPRAY IN ACTIVE NOSTRIL(S) TWICE A DAY *PRIME BEFORE USE* Indication: FOR ALLERGIC RHINITIS CARVEDILOL 12.5MG TAB TAKE ONE-HALF TABLET BY MOUTH TWICE ACTIVE A DAY TAKE WITH FOOD. Indication: FOR HIGH BLOOD PRESSURE CHOLECALCIF 50MCG (D3-2,000UNIT) TAB TAKE ONE TABLET BY ACTIVE MOUTH ONCE A DAY Indication: FOR VITAMIN D DEFICIENCY EMPAGLIFLOZIN 25MG TAB TAKE ONE-HALF TABLET BY MOUTH ONCE ACTIVE A DAY Indication: FOR DIABETES FLUTICAS 250/SALMETEROL 50 INHL DISK 60 INHALE 1 ACTIVE INHALATION ORAL INHALATION TWICE A DAY (OPEN DISKUS; CLICK ONLY ONCE; MAY INHALE TWICE TO COMPLETE DOSE; CLOSE WHEN FINISHED) RINSE MOUTH AND SPIT AFTER EACH USE. Indication: FOR COPD FLUTICASONE PROP 50MCG 120D NASAL INHL INSTILL 1 SPRAY IN ACTIVE NOSTRIL(S) EVERY MORNING (MUST BE USED DIRECTED FOR MINIMUM OF 21 DAYS TO PROVIDE ADEQUATE BENEFITS) Indication: FOR RHINITIS FUROSEMIDE 40MG TAB TAKE ONE TABLET BY MOUTH EVERY MORNING ACTIVE Indication: FOR FLUID RETENTION (EDEMA) LOSARTAN 100MG TAB TAKE ONE-HALF TABLET BY MOUTH ONCE A ACTIVE DAY Indication: FOR HIGH BLOOD PRESSURE PANTOPRAZOLE NA 40MG EC TAB TAKE ONE TABLET BY MOUTH EVERY ACTIVE MORNING BEFORE A MEAL TAKE 30 MINUTES BEFORE MEAL(S) Indication: FOR GASTROESOPHAGEAL REFLUX DISEASE ROSUVASTATIN CA 40MG TAB TAKE ONE-HALF TABLET BY MOUTH ACTIVE EVERY EVENING Indication: FOR HIGH CHOLESTEROL TICAGRELOR 90MG TAB TAKE ONE TABLET BY MOUTH TWICE A DAY ACTIVE Indication: FOR CORONARY ARTERY DISEASE TIOTROPIUM 2.5MCG/ACTUAT 60D ORAL INHL INHALE 2 ACTIVE INHALATIONS ORAL INHALATION ONCE A DAY (ADMINISTER AT SAME TIME EACH DAY) Indication: FOR COPD Non-VA ALBUTEROL 90MCG (CFC-F) 200D ORAL INHL 1 PUFF BY ACTIVE ORAL INHALATION FOUR TIMES A DAY NEEDED Indication: FOR COPD Non-VA DOCUSATE NA 100MG CAP 100MG BY MOUTH TWICE A DAY ACTIVE Indication: FOR SOFTENING STOOL Non-VA HYOSCYAMINE SULFATE 0.125MG TAB 0.125MG BY MOUTH ACTIVE Indication: FOR GASTROINTESTINAL DISORDERS Non-VA TIMOLOL MALEATE 0.5% OPH SOLN 1 DROP BOTH EYES ACTIVE TWICE A DAY Indication: FOR ELEVATED INTRAOCULAR PRESSURE 20 Total Medications - MOOD: In the past month, have you felt bothered a lot by: (X)Yes No Little interest or pleasure in doing things? d/t SOB Yes (X)No Feeling down, depressed, or hopeless? - Homelessness/Food Insecurity Screen: The [place] reports the following: Within the past 12 months, you worried whether your food would run out before you got money to buy more. Often true Sometimes true (X)Never true Screening not performed Within the past 12 months, the food you bought just didn't last and you didn't have money to get more. Often true Sometimes true (X)Never true (X)No referral for additional assistance requested by [place]. agrees to referral to Social Work [place] agrees to referral to Computerized Machine Fabric Cutter Already receiving services or assistance Comments: - PERSONAL SMART GOALS: I want to be able to move around more like I used to without getting so short of breath. (Specific, measurable, achievable, realistic, timely) REHABILITATION GOALS: -Demonstrate safe exercise -Be free of respiratory or cardiac complications associated with exercise -Maintain oxygen saturation 90% or greater -Decrease breathlessness as measured on the Dyspnea Scale -Be free of/decreased episodes of chest discomfort -Increase functional capacity as measured on the 6 minute walk pre/post rehab -Establish a home exercise program -Improve knowledge and skills to better self-manage chronic health conditions PLAN: -Attend exercise and education sessions -Monitor cardiac and respiratory status for complications associated with exercise -Measure oxygen saturation and supplement as needed to maintain Sa02 90% or greater -Demonstrate correct technique with purse-lip and diaphragmatic breathing -Demonstrate correct use of inhalers -Report chest pain or other serious symptoms to nurse at time of occurrence -Measure walking distance pre and post rehab during the 6 Minute Walk Test -Aerobic exercise 20-30 minutes per session -Perform progressive strength training 2-3 times per week Start date for the [facility] Program is 08/15/2024 in the T,Th @ 1pm session. /day/ LAWSON CORONA REGISTERED NURSE Signed: 08/06/2024 10:11 LAWSON CORONA [facility] Aug 06, 2024 09:32 AM CARDIOPULMONARY REHABILITATION CONSULT: LOCAL TITLE: CARDIOPULMONARY REHAB CONSULT [facility] STANDARD TITLE: CARDIOPULMONARY REHABILITATION CONSULT DATE OF NOTE: AUG 06, 2024@09:32 ENTRY DATE: AUG 06, 2024@09:32:27 AUTHOR: LAWSON CORONA EXP COSIGNER: URGENCY: STATUS: COMPLETED CARDIOPULMONARY REHAB CONSULT [facility] Has ADDENDA OUTPATIENT CARDIOPULMONARY NURSING ASSESSMENT - Mode/Assist Device Used: (X)Ambulatory Cane Wheeled Walker Wheelchair - Emergency Contact: LAKSHMI plascencia) - Physician(s): Ricky PATIENT DATA Age: 74 BP: 132/80 Pulse: 61 (X)Reg Irreg Pulse ox: 92% 2L/NC Height: 73 in [185.4 cm] (05/07/2024 09:52) Weight:200.8 lb [91.08 kg] (07/23/2024 09:47) BMI: 26.5 Lipid Panel: TRIGLYCERIDE 112 mg/dL 07/23/2024 11:03 CHOLESTEROL 94 mg/dL 07/23/2024 11:03 HDL(New) 32 L mg/dL 07/23/2024 11:03 CALCULATED LDL 40 mg/dL 07/23/2024 11:03 Hemoglobin A1C: HGB A1C Collection DT Specimen Test Name Result Units Ref Range 07/23/2024 11:03 BLOOD HGA1C 6.2 H % 4.0 - 6.0 09/05/2023 08:05 BLOOD HGA1C 6.7 H % 4.0 - 6.0 O2 saturation: Measurement DT POx (L/MIN)(%) 07/23/2024 09:47 94[2][] 07/03/2024 12:59 96[2.0][] 05/07/2024 09:52 96[2][] 04/26/2024 10:33 96[2][] Supplemental O2: 2-3L NC Allergies: ALLERGIES/ADVERSE REACTIONS - NONE FOUND Chief Complaint: I have been more short of breath and fatigued since I had stents placed. - Problem List: 1) HTN - Hypertension ([facility] [id number]) 2) GERD - Gastro-Esophageal Reflux Disease ([facility] [id number]) 3) Constipation ([facility] [id number]) 4) Prostate cancer 5) Chronic obstructive lung disease 6) Carotid Artery Stenosis ([facility] [id number]) 7) Glaucoma 8) Prediabetes 9) Vitamin D Deficiency ([facility] [id number]) 10) Exposure to potentially hazardous substance 11) Obstructive Sleep Apnea of Adult ([facility] [id number]) 12) Chronic diastolic heart failure 13) CAD - Coronary Artery Disease ([facility] [id number]) Additional Medical History: (X) YANNA/CPAP/BIPAP Compliant:(X)Yes No (X) NE: 06/2024 w/ stent placement SYMPTOMS (X) Dyspnea (X) Cough (X) Sputum : clear (X) Chest pain : randomly at times; sometimes takes aspirin Breath Sounds: diminished bilaterally EKG Rhythm (Historical): Sinus Rhythm per ED records from [facility] in June 2024; Placed EKG order and made aware to complete EKG on 08/15/2024 prior PT eval Diabetic foot inspection: N/A Edema Yes (X)NO 1+ 2+ 3+ Pitting Alcohol/Drug Use: Denies SMOKING HISTORY: Lifetime Non-smoker Years: 50 Packs/Day: 2 Quit date: 04/2023 Secondhand smoke exposure: Yes (X)No Readiness to quit smoking: Precontemplation--no intention to change or take action within the near future Contemplation--intention to change within the next 6 months Preparation--plans to take action within the next month Action--has made significant modifications in behavior and way of life (X) Maintenance--working to prevent a relapse; confident of continuing to change - Active Outpatient Medications (including Supplies): ACCU-CHEK GUIDE (GLUCOSE) TEST STRIP USE 1 STRIP FOR BLOOD ACTIVE TEST DIRECTED *DIAGNOSIS, 50 STRIPS PER YEAR Sep ALBUTEROL 90MCG (CFC-F) 200D ORAL INHL INHALE 2 PUFFS BY ACTIVE ORAL INHALATION FOUR TIMES A DAY NEEDED SHAKE WELL. RINSE MOUTHPIECE FREQUENTLY TO PREVENT CLOGGING. Indication: FOR COPD ALCOHOL PREP PAD USE/APPLY PAD TO AFFECTED AREA(S) ONCE A ACTIVE DAY NEEDED Indication: FOR SKIN CLEANSING ASPIRIN 81MG EC TAB TAKE ONE TABLET BY MOUTH ONCE A DAY ACTIVE TAKE WITH FOOD. Indication: FOR CARDIOVASCULAR DISEASE AZELASTINE 137MCG/SPRAY 200D NASAL INHL SPRAY 1 SPRAY IN ACTIVE NOSTRIL(S) TWICE A DAY *PRIME BEFORE USE* Indication: FOR ALLERGIC RHINITIS CARVEDILOL 12.5MG TAB TAKE ONE-HALF TABLET BY MOUTH TWICE ACTIVE A DAY TAKE WITH FOOD. Indication: FOR HIGH BLOOD PRESSURE CHOLECALCIF 50MCG (D3-2,000UNIT) TAB TAKE ONE TABLET BY ACTIVE MOUTH ONCE A DAY Indication: FOR VITAMIN D DEFICIENCY EMPAGLIFLOZIN 25MG TAB TAKE ONE-HALF TABLET BY MOUTH ONCE ACTIVE A DAY Indication: FOR DIABETES FLUTICAS 250/SALMETEROL 50 INHL DISK 60 INHALE 1 ACTIVE INHALATION ORAL INHALATION TWICE A DAY (OPEN DISKUS; CLICK ONLY ONCE; MAY INHALE TWICE TO COMPLETE DOSE; CLOSE WHEN FINISHED) RINSE MOUTH AND SPIT AFTER EACH USE. Indication: FOR COPD FLUTICASONE PROP 50MCG 120D NASAL INHL INSTILL 1 SPRAY IN ACTIVE NOSTRIL(S) EVERY MORNING (MUST BE USED DIRECTED FOR MINIMUM OF 21 DAYS TO PROVIDE ADEQUATE BENEFITS) Indication: FOR RHINITIS FUROSEMIDE 40MG TAB TAKE ONE TABLET BY MOUTH EVERY MORNING ACTIVE Indication: FOR FLUID RETENTION (EDEMA) LOSARTAN 100MG TAB TAKE ONE-HALF TABLET BY MOUTH ONCE A ACTIVE DAY Indication: FOR HIGH BLOOD PRESSURE PANTOPRAZOLE NA 40MG EC TAB TAKE ONE TABLET BY MOUTH EVERY ACTIVE MORNING BEFORE A MEAL TAKE 30 MINUTES BEFORE MEAL(S) Indication: FOR GASTROESOPHAGEAL REFLUX DISEASE ROSUVASTATIN CA 40MG TAB TAKE ONE-HALF TABLET BY MOUTH ACTIVE EVERY EVENING Indication: FOR HIGH CHOLESTEROL TICAGRELOR 90MG TAB TAKE ONE TABLET BY MOUTH TWICE A DAY ACTIVE Indication: FOR CORONARY ARTERY DISEASE TIOTROPIUM 2.5MCG/ACTUAT 60D ORAL INHL INHALE 2 ACTIVE INHALATIONS ORAL INHALATION ONCE A DAY (ADMINISTER AT SAME TIME EACH DAY) Indication: FOR COPD Non-VA ALBUTEROL 90MCG (CFC-F) 200D ORAL INHL 1 PUFF BY ACTIVE ORAL INHALATION FOUR TIMES A DAY NEEDED Indication: FOR COPD Non-VA DOCUSATE NA 100MG CAP 100MG BY MOUTH TWICE A DAY ACTIVE Indication: FOR SOFTENING STOOL Non-VA HYOSCYAMINE SULFATE 0.125MG TAB 0.125MG BY MOUTH ACTIVE Indication: FOR GASTROINTESTINAL DISORDERS Non-VA TIMOLOL MALEATE 0.5% OPH SOLN 1 DROP BOTH EYES ACTIVE TWICE A DAY Indication: FOR ELEVATED INTRAOCULAR PRESSURE 20 Total Medications - MOOD: In the past month, have you felt bothered a lot by: (X)Yes No Little interest or pleasure in doing things? d/t SOB Yes (X)No Feeling down, depressed, or hopeless? - Homelessness/Food Insecurity Screen: The reports the following: Within the past 12 months, you worried whether your food would run out before you got money to buy more. Often true Sometimes true (X)Never true Screening not performed Within the past 12 months, the food you bought just didn't last and you didn't have money to get more. Often true Sometimes true (X)Never true (X)No referral for additional assistance requested by [place]. agrees to referral to Social Work [place] agrees to referral to [employer] Already receiving services or assistance Comments: - PERSONAL SMART GOALS: I want to be able to move around more like I used to without getting so short of breath. (Specific, measurable, achievable, realistic, timely) REHABILITATION GOALS: -Demonstrate safe exercise -Be free of respiratory or cardiac complications associated with exercise -Maintain oxygen saturation 90% or greater -Decrease breathlessness as measured on the Dyspnea Scale -Be free of/decreased episodes of chest discomfort -Increase functional capacity as measured on the 6 minute walk pre/post rehab -Establish a home exercise program -Improve knowledge and skills to better self-manage chronic health conditions PLAN: -Attend exercise and education sessions -Monitor cardiac and respiratory status for complications associated with exercise -Measure oxygen saturation and supplement as needed to maintain Sa02 90% or greater -Demonstrate correct technique with purse-lip and diaphragmatic breathing -Demonstrate correct use of inhalers -Report chest pain or other serious symptoms to nurse at time of occurrence -Measure walking distance pre and post rehab during the 6 Minute Walk Test -Aerobic exercise 20-30 minutes per session -Perform progressive strength training 2-3 times per week Start date for the [facility] Program is 08/15/2024 in the T,Th @ 1pm session. /day/ LAWSON [place]ONA REGISTERED NURSE Signed: 08/06/2024 10:11 08/06/2024 ADDENDUM STATUS: COMPLETED Initial Individualized Treatment Plan Oxygen Assessment ()Prescribed: O2 L/min @ rest L/min @ exertion ((X)) Room Air ((X))Oxygen use & Titration Plan Goals -Will be able to self-administer O2 based on needs. -Decrease breathlessness as measured on the Dyspnea Scale. -Be free of respiratory complications associated with exercise. -Maintain oxygen saturation 90% or greater. -Demonstrate correct technique with purse-lip and diaphragmatic breathing. -Demonstrate correct use of inhalers. -Increase functional capacity as measured on the 6-minute walk pre/post rehab. Interventions -Monitor respiratory status for complications associated with exercise. -Measure oxygen saturation and supplement as needed to maintain Sa02 90% or greater. -Measure walking distance pre and post rehab during the 6 Minute Walk Test. -Attend exercise and education sessions. -Educational Classes -Medications Exercise Assessment ((X))6MWT ()SubMax Test ()Unable to Complete ((X))Exercise Plan First Date of Exercise 08/15/2024 Goals -Establish a home exercise program. -Demonstrate safe exercise. -Attend exercise and education sessions. -Aerobic exercise 20-30 minutes per session, for a progressive total of 150 minutes per week. -Perform progressive strength training 2-3 times per week. - will be able to self-identify signs and symptoms of complications associated with exercise. -Report chest pain or other serious symptoms to staff at time of occurrence. Interventions -Each exercise session will consist of warm-up exercises, followed by cardiovascular and strength training, concluding with cool-down stretching. -[place] will be monitored via telemetry for heart rate and rhythm. -Monitor and record oxygen saturation before, during, and after exercise session. -Monitor and record blood pressure before, during, and after exercise session. -Monitor and record blood sugar if diabetic. -Monitor cardiac and respiratory status for complications associated with exercise. -Educational Classes Nutrition Assessment Areas of Concern: ((X))None ()BMI ()Lab Values ()Diabetes: A1C ()Nutritional Deficiencies / Malnutrition ()Cancer ()Food Insecurity Nutritional Habits/Diets Referrals ((X))None ()Computer[employer] ()Pipe Fitter Maintenance Goals -Recognize and select healthy food choices. -Be able to read a nutrition label. -Improve A1C, cholesterol levels, lipid levels, etc. -Maintain a healthy body weight. Interventions -Review and assess for lab value improvements. -Review and assess for food insecurity and dietary concerns. -Review for weight concerns with . -Educational classes -Medications Psychological Assessment Areas of Concern ((X))None ()Food Insecurity ()Substance/Alcohol Abuse ()Sleep Inconsistencies ()Support Systems Referrals ((X))None ()Psychologist ()Pipe Fitter Maintenance Goals -Improvement on QOL survey (RAND SF-20) -Decrease the risk of substance or alcohol abuse. -Improve sleep hygiene. -Improve interpersonal relationships. Interventions -Administer and assess QOL survey (RAND SF-20) -Provide referrals for various psychosocial issues. -Educational classes -Medications [place] 36-Item Health Survey results (VR-36):(Developed at [facility] as a part of the Medical Outcomes Study) The total possible score in each of the 8 categories is 100. The higher the score, the higher the quality of life perceptions. Physical Functions: Pre:30 Post: Normal: 84.2 Role Limitations-Physical: Pre:0 Post: Normal: 81.0 Role Limitations-Emotional: Pre:33.3 Post: Normal: 81.3 Energy/Fatigue: Pre:40 Post: Normal: 60.9 Emotional Well Being: Pre:48 Post: Normal: 74.7 Social Functioning: Pre:50 Post: Normal: 83.3 Pain Levels: Pre:55 Post: Normal: 75.2 General Health: Pre:37.5 Post: Normal: 72.0 Total Average: Pre:36.7 Post: Normal: 76.6 (Exercise prescription subject to change pending 6MWT) /day/ LAWSON [place] REGISTERED NURSE Signed: 08/06/2024 16:17 Receipt Acknowledged By: * AWAITING SIGNATURE * LEANNA WETZEL * AWAITING SIGNATURE * DINA TODD * AWAITING SIGNATURE * SUSI ROWLEY SARAH E [facility]
--- OUTSIDE RECORDS SUMMARY | 2024-09-01 12:57 | XMS_ITS | Encounter Summary ---
Author Name [facility] [place] [place] Organization [facility] [place] Address [address] [place] [id number] Care Team Providers Care Library Historian Name Role Phone COLBY HERNANDEZ Primary Care [...] Mullen's Name Patient's Relationship to Policy Mullen [facility] (WNR) MEDICARE ADVANTAGE [facility] (WNR) Jun 05, 2022 [id number] Robel COLON PATIENT [facility] (WNR) MEDICARE ADVANTAGE [facility] (WNR) Jun 05, 2022 [id number] Robel COLON PATIENT [facility] (WNR) MEDICARE ADVANTAGE [facility] (WNR) Jun 05, 2022 [id number] Robel COLON PATIENT Selected Encounter This section includes the information on record at [place] for the Encounter. Date/Time Encounter Type Encounter Description Reason Provider Source Feb 07, 2024 10:30 AM OFFICE O/P EST MOD 30 MIN PRIMARY CARE/MEDICINE ICD-10-CM Z23 Encounter for immunization MACRINA HERNANDEZ OR L IHE Encounter Template Text not used by [facility] Assessments - Encounter Diagnoses This section includes the primary and secondary diagnoses documented for the Encounter. Date/Time Primary/Secondary Diagnosis Diagnosis Name Provider Source Mar 10, 2024 01:12 PM PRIMARY Encounter for immunization NELY GOLDEN [facility] Mar 10, 2024 01:12 PM SECONDARY Allergic rhinitis, unspecified MELISSA HERNANDEZ [facility] Mar 10, 2024 01:12 PM SECONDARY Chronic diastolic (congestive) heart failure MELISSA HERNANDEZ [facility] Mar 10, 2024 01:12 PM SECONDARY Chronic obstructive pulmonary disease, unspecified MELISSA HERNANDEZ SILVINO [facility] Mar 10, 2024 01:12 PM SECONDARY Constipation, unspecified MELISSA HERNANDEZ [facility] Mar 10, 2024 01:12 PM SECONDARY Essential (primary) hypertension MELISSA HERNANDEZ [facility] Mar 10, 2024 01:12 PM SECONDARY Gastro-esophageal reflux disease without esophagitis MELISSA HERNANDEZ [facility] Mar 10, 2024 01:12 PM SECONDARY Malignant neoplasm of [facility] Mar 10, 2024 01:12 PM SECONDARY Obstructive sleep apnea (adult) (pediatric) MELISSA HERNANDEZ [facility] Mar 10, 2024 01:12 PM SECONDARY Occlusion and stenosis of unspecified carotid artery [facility] Mar 10, 2024 01:12 PM SECONDARY Type 2 diabetes mellitus with unspecified complications MELISSA HERNANDEZ [facility] Mar 10, 2024 01:12 PM SECONDARY Unspecified glaucoma MELISSA HERNANDEZ [facility] Mar 10, 2024 01:12 PM SECONDARY Vitamin D deficiency, unspecified MELISSA HERNANDEZ [facility] Plan of Treatment: Future Appointments (+ 6 months) and Future Tests (+/- 45 days) The Plan of Treatment section includes future care activities for the patient from all [place] treatmentfacilities. This section includes future appointments and future orders which are active, pending or scheduled. Future Appointments This section includes appointments that were scheduled to occur 6 months from the date of the Encounter, up to a maximum of 20 appointments. The data comes from all [place] treatment facilities. Appointment Date/Time Appointment Type Appointme nt Facility Name Feb 27, 2024 09:30 AM AMBULATORY - MEDICINE [facility] Feb 27, 2024 10:30 AM AMBULATORY - NONE [facility] Apr 26, 2024 10:30 AM [facility] May 07, 2024 10:00 AM AMBULATORY - MEDICINE [facility] Jun 21, 2024 10:00 AM AMBULATORY - MEDICINE [facility] Jul 03, 2024 01:00 PM AMBULATORY - MEDICINE [facility] Jul 23, 2024 10:00 AM AMBULATORY - MEDICINE [facility] Aug 05, 2024 10:00 AM AMBULATORY - MEDICINE [facility] Aug 06, 2024 09:00 AM AMBULATORY - REHAB [facility] Active, Pending, and Scheduled Orders This section includes a listing of several types of active, pending, and scheduled orders, including clinic medications orders, diagnostic test orders, procedure orders and consult orders; where the start date of the order is 45 days before the date of the Encounter or 45 days after the date of theEncounter. The data comes from all [place] treatment facilities. Test Date/Time Test Type Test Details Facility Name Feb 07, 2024 12:00 AM Laboratory - Chemi stry Order HGA1C BLOOD [facility] Feb 07, 2024 12:00 AM Laboratory - Chemi stry Order VITAMIN D, 25-HYDROXY GOLD/RED SST SERUM [facility] Vital Signs: All taken on the encounter date This section contains inpatient and outpatient Vital Signs collected on the date of the Encounter. Date/Time Temperature Pulse Blood Pressure Respiratory Rate SP02 Pain Height Weight Body Mass Index Source Feb 07, 2024 10:23 AM 97.3 62 123/70 18 94 0 73 203.8 27 [facility] Immunizations: All administered on the encounter date This section contains immunizations associated to the Encounter. Immunization Series Date Issued Reaction Comments INFLUENZA, HIGH-DOSE, TRIVALENT, PF Feb 06 Social History: Smoking Status (Most current) and Tobacco Use (All prior to encounter date) This section includes the most current, and the historical, smoking and tobacco- related health factors from the [place] facility where the Encounter took place. Current Smoking Status This section includes the most current smoking, or tobacco-related health factor, from the [place] facility where the Encounter took place. Date/Time Current Smoking Status Comment Mame ity Jul 28, 2023 10:00 AM VA-TOBACCO FORMER USER [facility] Tobacco Use History This section includes a history of the smoking, or tobacco-related health factors, that were collected on or before the date of the Encounter. The data comes from the [place] facility where the Encounter took place. Date/Time Smoking Status/Tobacco Use Comment F acility Jul 28, 2023 10:00 AM VA-TOBACCO QUIT 15 YRS OR MORE [facility] Jul 29, 2022 01:00 PM VA-TOBACCO DOESNT USE WI 30 MIN WAKEUP [facility] Jul 29, 2022 01:00 PM VA-TOBACCO USE 30 YEARS OR MORE [facility] Jul 29, 2022 01:00 PM VA-TOBACCO USE ADVICE [facility] Jul 29, 2022 01:00 PM VA-TOBACCO USE MAGNETIC RESONANCE TECHNOLOGIST NO [facility] Jul 29, 2022 01:00 PM VA-TOBACCO USE MED NO [facility] Jul 29, 2022 01:00 PM VA-TOBACCO USER EVERY DAY [facility] Radiology Reports: +/- 30 days of [...] the Encounter. The data comes from all [place] treatment facilities. Date/Time Radiology Report Provider Source Jan 12, 2024 10:15 AM CHEST SPECIAL (RTD ECUB): MC COLON [id number] -1950 Ex Date: JAN 12, 2024@10:15 Req Phys: ADRIANNE ROCHA Loc: [facility]PULMONARY BRONCHOSCOPY (Req Img Loc: [facility]-MAIN RADIOLOGY SUITE Service: [facility] [address] [place] [address] (Case [id number] COMPLETE) CHEST SPECIAL (RTDECUB) (RAD Detailed) CPT:04725 Proc Modifiers : RT LatDec Reason for Study: pleural effusion follow up Clinical History: Report Status: Verified Date Reported: JAN 12, 2024 Date Verified: JAN 12, 2024 Long Chain Beamer E-Sig:/DAY/ZAHRA BRAMBILA MD Report: Case #[id number]. Right decubitus chest examination. Finding: Right decubitus chest examination shows no evidence of layering of right pleural fluid collection. Impression: No free right pleural effusion. Primary Interpreting Staff: ZAHRA BRAMBILA MD, Staff Physician - Radiologist (Long Chain Beamer) /ZAHRA PEGUERO [facility] Jan 12, 2024 10:15 AM CHEST X-RAY, 2 VIE WS: MC COLON [id number] -[id number] M Exm Date: JAN 12, 2024@10:15 Req Phys: ADRIANNE ROCHA Pat Loc: [facility]-PULMONARY BRONCHOSCOPY (Req Img Loc: -MAIN RADIOLOGY SUITE Service: [facility] [address] [place] [address] (Case [id number] COMPLETE) CHEST X-RAY, 2 VIEWS (RAD Detailed) CPT:37540 Reason for Study: pleural effusion follow up Clinical History: Report Status: Verified Date Reported: JAN 12, 2024 Date Verified: JAN 12, 2024 Long Chain Beamer E-Sig:/DAY/ZAHRA BRAMBILA MD Report: Case #[id number]. Chest examination. [...] ZAHRA BRAMBILA MD, Staff Physician - Radiologist (Long Chain Beamer) /ZAHRA PEGUERO [facility] Jan 12, 2024 10:15 AM CHEST SPECIAL (LTD ECUB): MC COLON [id number] -1950 M Exm Date: JAN 12, 2024@10:15 Req Phys: REGINALD ROCHAEnrrique KINSEY Pat Loc: [facility]-PULMONARY BRONCHOSCOPY (Req Img Loc: [facility]-MAIN RADIOLOGY SUITE Service: Unknown [facility] [address] [place] [address] (Case [id number] COMPLETE) CHEST SPECIAL (LTDECUB) (RAD Detailed) CPT:33668 Proc Modifiers : LT LatDec Reason for Study: pleural effusion follow up Clinical History: Report Status: Verified Date Reported: JAN 12, 2024 Date Verified: JAN 12, 2024 Long Chain Beamer E-Sig:/ES/ZAHRA BRAMBILA MD Report: Case #[id number]. Left antecubital chest examination. Finding: Left decubitus chest examination shows no evidence of layering of left pleural effusion. Impression: In comparison to previous study findings are compatible with loculated left pleural effusion. Primary Interpreting Staff: ZAHRA BRAMBILA MD, Staff Physician - Radiologist (Long Chain Beamer) /ZAHRA PEGUERO [facility] Encounter Notes: All associated encounter notes This section contains the clinical notes associated to the Encounter. Date/Time Encounter Note(s) Provider Source Aug 02, 2024 08:16 AM PHYSICIAN LETTERS: LOCAL TITLE: TEST RESULT GENERAL LETTER STL STANDARD TITLE: PHYSICIAN LETTERS DATE OF NOTE: AUG 02, 2024@08:16 ENTRY DATE: AUG 02, 2024@08:16:26 AUTHOR: COLBY HERNANDEZ EXP COSIGNER: URGENCY: STATUS: COMPLETED [facility] [address] [place] [address] AUG 02, 2024 MC COLON [address] [place] [id number] Dear Mc Colon, I would like to update you on your recent test results. OTHER TEST RESULTS TOTAL T3 (STL-PB) GREEN LI-HEP PLASMA SP #[id number] Collection time: Aug 01, 2024@09:13 Test Name Result Units Range --------- ------ ----- ----- TOTAL T3 (STL-PB) 119.24 ng/dL 58 - 159 These readings are within normal limits. PLAN Please continue your treatment as we discussed during your visit. If you have any questions please call your correctional case manager. I look forward to seeing you at your next clinic appointment. Thank you for choosing the [facility] for your healthcare. FUTURE APPOINTMENTS: 08/05/2024 10:00 [facility] PULM REHAB MD 1 08/14/2024 10:00 [facility] PACT 7 PCP 10/03/2024 12:00 [facility]-VASCULAR LAB 10/03/2024 13:00 [facility]-VASCULAR SURG II 01/01/2025 12:00 [facility]-CARDIOLOGY OU 01/01/2025 13:00 [facility]-PULMONARY DEMIDENKO Sincerely, COLBY HERNANDEZ, MSN, AGNP-C NURSE PRACTITIONER [facility] COLON TAYLOR L [facility] Jul 23, 2024 04:21 PM PHYSICIAN LETTERS: LOCAL TITLE: TEST RESULT GENERAL LETTER ST STANDARD TITLE: PHYSICIAN LETTERS DATE OF NOTE: JUL 23, 2024@16:21 ENTRY DATE: JUL 23, 2024@16:21:48 AUTHOR: COLBY HERNANDEZ EXP COSIGNER: URGENCY: STATUS: COMPLETED [facility] [address] [place] [address] JUL 23, 2024 MC COLON [address] [place] [id number] Dear Mc Colon, I would like to update you on your recent test results. LIPID PROFILE - High cholesterol and triglycerides (lipids) are risk factors for heart disease. Your cholesterol should fall between 140 and 200, and your triglycerides levels should be less than or equal to 150. HDL is the good cholesterol and should ideally be greater than 40. LDL is the bad cholesterol and optimal levels should be less than 100 (near optimal is between 100 and 129). TRIGLYCERIDE 112 mg/dL 07/23/2024 11:03 CHOLESTEROL 94 mg/dL 07/23/2024 11:03 HDL(New) 32 L mg/dL 07/23/2024 11:03 CALCULATED LDL 40 mg/dL 07/23/2024 11:03 These readings are within normal limits. Your cholesterol is at an optimal level. Please continue to take rosuvastatin as prescribed in addition to following a heart healthy lifestyle. HEMOGLOBIN A1C - Gives us information about your diabetes (sugar or glucose) control over the past 3 months. Your target is to keep your A1C below 7.0%. HGA1C 6.2 H % 07/23/2024 11:03 These readings are within normal limits. Your A1C is at an optimal level. Please continue to take empagliflozin as prescribed. In addition to your medication, you can lower your A1C by increasing physical activity, limiting carbohydrates, choosing more vegetables, fruits, and whole grains. Do not deep-patel your food, choose lean cuts of meat, and lower fat versions of milk. CBC - A complete blood count (CBC) gives important information about the kinds and numbers of cells in the blood, especially red blood cells, white blood cells, and platelets. HGB 15.3 g/dL 07/23/2024 11:03 HEMATOCRIT 48.6 % H (07/23/24 11:03) PLT 326 10*3/uL 07/23/2024 11:03 WHITE BLOOD COUNT 8.4 10*3/uL (07/23/24 11:03) The results are similar to previous values and not a clinical concern. CHEM 7 - This is important information about the current status of your kidneys, liver, and electrolyte and acid/base balance as well as of your blood sugar and blood proteins. SODIUM 143 mEq/L 07/23/2024 11:03 POTASSIUM 4.1 mEq/L 07/23/2024 11:03 CHLORIDE 102 mEq/L 07/23/2024 11:03 UREA NITROGEN 16.8 mg/dL 07/23/2024 11:03 CREATININE 0.90 mg/dL 07/23/2024 11:03 CALCIUM 10.1 mg/dL 07/23/2024 11:03 CARBON DIOXIDE 30 mEq/L 07/23/2024 11:03 GLUCOSE 106 H mg/dL 07/23/2024 11:03 EGFR (CKD-EPI 2020) 88.5 07/23/2024 11:03 These readings are within normal limits. LIVER FUNCTION PANEL - These are tests for liver function: PROTEIN 8.8 H g/dL 07/23/2024 11:03 ALBUMIN 4.2 g/dL 07/23/2024 11:03 TOTAL BILIRUBIN 0.5 mg/dL 07/23/2024 11:03 ALKALINE PHOSPHATASE 109 U/L 07/23/2024 11:03 AST/SGOT 19 U/L 07/23/2024 11:03 ALT/SGPT 18 U/L 07/23/2024 11:03 The results are similar to previous values and not a clinical concern. TSH - Thyroid-stimulating hormone (also known as TSH or thyrotropin) is a peptide hormone synthesized and secreted by thyrotrope cells in the anterior pituitary gland, which regulates the endocrine function of the thyroid gland. TSH TSH 0.052 L uIU/mL 07/23/2024 11:03 These results are abnormal. Your TSH level is slightly low but improved in comparison to your prior lab values. I notified the [place] cinema operator of these findings. We will contact you soon with their recommendations. PLAN Please continue your plan of care as discussed during your office visit. If you have any questions please contact your clinic primary care coordinator at [phone]. FUTURE APPOINTMENTS: 08/14/2024 10:00 [facility] PACT 7 PCP 10/03/2024 12:00 [facility]-VASCULAR LAB 10/03/2024 13:00 [facility]-VASCULAR SURG II 01/01/2025 12:00 [facility]-CARDIOLOGY OU 01/01/2025 13:00 [facility]-PULMONARY DEMIDENKO Sincerely, COLBY HERNANDEZ, MSN, AGNP-C NURSE PRACTITIONER [facility] COLON TAYLOR L [facility] Feb 07, 2024 10:36 AM NURSING NOTE: LOCAL TITLE: V15 PACT FACE TO FACE NOTE STL STANDARD TITLE: NURSING NOTE DATE OF NOTE: FEB 07, 2024@10:36 ENTRY DATE: FEB 07, 2024@10:36:04 AUTHOR: SARA GOLDEN EXP COSIGNER: URGENCY: STATUS: COMPLETED V15 PACT FACE TO FACE NOTE STL Has ADDENDA Provider Visit: Patient Identifiers : Full Name Date of Reason for visit: Established Follow-Up Mode of Arrival: Ambulatory Allergy Review: Patient has answered NKA Allergy list reviewed and remains current. Recent Vital Signs: Temperature: 97.3 F [36.3 C] (02/07/2024 10:23) Pulse: 62 (02/07/2024 10:23) Respiration: 18 (02/07/2024 10:23) B/P: 123/70 (02/07/2024 10:23) Pain: 0 (02/07/2024 10:23) Wt: 203.8 lb [92.44 kg] (02/07/2024 10:) Ht: 73 in [185.4 cm] (02/07/2024 10:) BMI: 26.9 POX: 94% (02/07/2024 10:) Would you like to discuss any personal problem, family problem, alcohol use, drug use, or a mental or emotional illness? No My [facility] ([facility]), please select appointment type: Face to face: Yes- Done Contact provided Primary Care phone number and encouraged to call if any questions or concerns. Review that after hours nurse line [phone] and emergency room are available 26/12 for patient use. Contact verbalized good understanding. [facility]VC DIGITAL DIVIDE CAPABILITY REMINDER: Patient is interested in [facility] Health Care appointments. VVC requirements have been communicated to the . The Hilger confirms understanding of those requirements and indicates the following VVC needs: Hilger confirms they have their own VVC capable equipment and/or request a 2nd video test call. The Provider and agree to the use of Telehealth and the confirms they have their own smart device (smart phone, tablet, laptop, or computer) with a camera AND audio. has been informed to call the Office of Connected Care Health Desk([facility]) at [phone] Option 1 for a test call and that a VA staff member will also call. 'S RIGHT TO DECLINE STATEMENT Hilger understands they have the right to decline the use of Telehealth Technology at any time without adverse affects on their continued access to healthcare. Tdap Immunization: The patient declines to receive the recommended dose of Tdap vaccine. Immunization: TDAP Refusal Reason: PATIENT DECISION Patient refuses all immunization(s) in the TDAP group Date Documented: 02/07/24 10:37 COVID-19 Immunization: Refused Novavax COVID-19 vaccine Immunization: COVID-19 (NOVAVAX), SUBUNIT, RS-NANOPARTICLE, ADJUVANTED, PF, 5 MCG/0.5 ML (AGES 12+ YEARS) Refusal Reason: PATIENT DECISION Patient refuses all immunization(s) in the COVID-19 group Date Documented: 02/07/24 10:37 PC [facility] - PHP MAP: PERSONAL HEALTH PLAN INVENTORY & MAP 's Response: Stated everything is going well for him /jeff GOLDEN LPN LICENSED PRACTICAL NURSE Signed: 02/07/2024 10:38 02/07/2024 ADDENDUM STATUS: COMPLETED Influenza Immunization: Influenza, High-Dose, Trivalent, Preservative Free (Fluzone-Syringe) Administered: INFLUENZA, HIGH-DOSE, TRIVALENT, PF Date Administered: Feb 07, 2024 10:30 Fingernail Sculpturer: SANOFI PASTEUR Lot: [id number] Exp Date: Dec 02, 2024 [facility]: [phone] Admin Route/Site: INTRAMUSCULAR/RIGHT DELTOID Dosage: 0.5mL Vaccine Information Statement(s): INFLUENZA(FLU) VACC(INACTIVATED OR RECOMBINANT)VIS Jan 08, 2021 ([place]) Order By: Colby Hernandez Administered By: Sara Golden The Influenza Vaccine Information Statement (VIS) was reviewed with the patient/caregiver which lists the benefits and risks of the vaccine and the risks of not receiving the Influenza vaccine. The patient/caregiver denied any prior severe reaction to this vaccine or its components or a severe allergic reaction, such as anaphylaxis, to any vaccine or any injectable therapy. The patient/caregiver gave verbal consent to receive the vaccine. /jeff GOLDEN LPN LICENSED PRACTICAL NURSE Signed: 02/07/2024 11:17 SARA GOLDEN [facility] Feb 07, 2024 10:23 AM PRIMARY CARE NOTE: LOCAL TITLE: PRIMARY CARE PROVIDER ESTABLISHED VISIT ST STANDARD TITLE: PRIMARY CARE NOTE DATE OF NOTE: FEB 07, 2024@10:23 ENTRY DATE: FEB 07, 2024@10:23:07 AUTHOR: COLBY HERNANDEZ EXP COSIGNER: URGENCY: STATUS: COMPLETED PRIMARY CARE PROVIDER ESTABLISHED VISIT ST Has ADDENDA ESTABLISHED PATIENT [id number] REASON FOR VISIT/CHIEF COMPLAINT: follow up HPI: PMH, see problem list 73 y/o male who presents to the medical clinic for his scheduled follow up visit. The purpose of the visit today is to follow up on the veterans chronic medical conditions. Denies new concerns or complaints. Last PCP visit: 08/31/2023 Community Providers: -Urologist: Dr. Nacho Morales, [facility] Physician [place] 2 -Clinical Geneticist: Dr. Fernando Reed, [facility]. Following with an outside head of design but is requesting to [facility] care to the [facility]. TTE completed in 07/2023 showed Normal biventricular systolic function, LVEF 60%, Grade II diastolic dysfunction. Euvolemic on exam. carvedilol and lisinopril/HCTZ were discontinued due to hypotension in the past. Was started on midodrine 10mg TID following his hospitalization in July but the medication was recently discontinued by his head of design. BP stable off medication. HTN. Home BP readings: not monitoring. Denies: CP, AV[place]ÑO, Blurred vision, peripheral edema. Carotid artery stenosis. H/O carotid endarterectomy in 2011 at [facility] in [facility] completed 09/2023 showed occluded R ICA and L ICA <50% stenosis. Asymptomatic. Vascular recommend repeating testing in one year. NIDDM. Home BG readings: not monitoring. WHAT IS YOUR GOAL FOR TODAY? F/U chronic medical conditions SOURCE(S) OF HISTORY: -Patient PAST MEDICAL HISTORY: 1) HTN - Hypertension (SCT 68870611) 2) GERD - Gastro-Esophageal Reflux Disease (SCT 361153528) 3) Constipation (SCT 07214640) 4) Prostate cancer comment: s/p prostatectomy 2021 5) Chronic obstructive lung disease 6) Carotid Artery Stenosis (SCT 55378289) 7) Glaucoma 8) Prediabetes 9) Vitamin D Deficiency (SCT 1511586) 10) Exposure to potentially hazardous substance 11) Obstructive Sleep Apnea of Adult (SCT 6882783796312) SURGICAL HISTORY: - Carotid endarterectomy - Prostatectomy [...] TWICE A DAY 15 Total Medications MEDICATION RECONCILIATION: completed REVIEW OF SYSTEMS: See HPI for further details of positive complaints. All 10 systems reviewed and otherwise negative. PHYSICAL EXAMINATION: VITALS (most recent, as listed in the electronic record): Temperature: 97 F [36.1 C] (01/12/2024 10:41) BP: 134/77 (01/12/2024 10:41) Pulse: 74 (01/12/2024 10:41) Resp: 20 (01/12/2024 10:41) PulsOx: 95% (01/12/2024 10:41) Pain: 0 (01/12/2024 10:41) Weight: Measurement DT WEIGHT LB(KG)[BMI] 01/12/2024 10:41 199(90.26)[26] 11/13/2023 10:01 195.7(88.77)[26] 10/11/2023 08:53 197(89.36)[26] PHYSICAL EXAMINATION: General appearance: well-groomed, well-nourished, in [...] and texture, skin intact DATA REVIEW: HGA1C 6.7 H % 09/05/2023 08:05 HGA1C 6.2 H % 08/01/2022 10:05 === Lipid Panel: TRIGLYCERIDE 107 mg/dL 09/05/2023 08:05 CHOLESTEROL 162 mg/dL 09/05/2023 08:05 HDL(New) 35 L mg/dL 09/05/2023 08:05 CALCULATED LDL 106 mg/dL 09/05/2023 08:05 === CMP: SODIUM 140 mEq/L 11/02/2023 12:47 POTASSIUM 4.2 mEq/L 11/02/2023 12:47 CHLORIDE 98 mEq/L 11/02/2023 12:47 UREA NITROGEN 10.1 mg/dL 11/02/2023 12:47 CREATININE 0.93 mg/dL 11/02/2023 12:47 CALCIUM 10.0 mg/dL 11/02/2023 12:47 PROTEIN 8.3 g/dL 11/02/2023 12:47 ALBUMIN 4.2 g/dL 11/02/2023 12:47 ALKALINE PHOSPHATASE 90 U/L 11/02/2023 12:47 ALT/SGPT 10 U/L 11/02/2023 12:47 AST/SGOT 15 U/L 11/02/2023 12:47 TOTAL BILIRUBIN 0.4 mg/dL 11/02/2023 12:47 CARBON DIOXIDE 35 H mEq/L 11/02/2023 12:47 GLUCOSE 150 H mg/dL 11/02/2023 12:47 EGFR (CKD-EPI 2020) 85.6 11/02/2023 12:47 === CBC: WBC 12.6 H 10*3/uL 11/02/2023 12:47 [...] 12:47 ATYPICAL LYMPHOCYTES 5.2 % 11/02/2023 12:47 === PSA: PROST. SPECIFIC AG.(PB-STL) <0.100 ng/mL 09/05/2023 08:05 === TSH: TSH 0.323 L uIU/mL 11/13/2023 11:03 === Vitamin D: VITAMIN D, 25-HYDROXY 20.1 L ng/mL 09/05/2023 08:05 VITAMIN D, 25-HYDROXY 4.3 L ng/mL 08/01/2022 10:05 === Micral: CREATuF: 88.4 (09/05/23 08:05) M/CREAT: 23 (09/05/23 08:05) MICRAL: 20.4 (09/05/23 08:05) ASSESSMENT/PLAN: # HFpEF: - Refer to [place] cardiology - Blood pressure stable - Continue empagliflozin & furosemide 40mg - Lifestyle modifications reviewed with diet(DASH) and exercise. - Self-monitor BP at home and report readings consistently above goal of <130/80 # COPD/ H/O ARF: - Eval/management per Pulmonology - On supplemental oxygen, 2L NC - Respiratory symptoms are stable on Wixela, Spiriva, and albuterol PRN - Contact the clinic with symptoms of worsening SOB, cough, or wheezing. # Carotid artery stenosis: - Eval/management per Vascular SGY - Continue rosuvastatin 20mg and ASA 81mg - F/U carotid US due in 09/2024 # DM II: - Continue empagliflozin 12.5mg/day - Lifestyle modifications reviewed - Check a1c # H/O Prostate CA: - S/P prostatectomy - Continue surveillance PSA monitoring, labs ordered # Constipation: - Adequate hydration encouraged. - Continue Psyllium & docusate sodium PRN - Increase physical activity # GERD: - Reports symptoms are stable on pantoprazole 40mg PRN - Avoid dietary triggers # Glaucoma: - Onset 10/29/2021 - Continue management per private Optometry service - Continue timolol 0.5% # Vit D Def: - Continue daily cholecalciferol 50mcg supplement, trend labs # Subclinical hyperthyroidism: - Referred to endocrinology for further eval, awaiting clarification of the plan # Allergic Rhinitis: - Planning start azelastine nasal spray - No change to treatment today. Contact the clinic if no improvement. # YANNA: - RT consult submitted for CPAP. Mailed on 02/06/2024. - The patient has been advised that using CPAP regularly can decrease cardiac strain and help to control blood pressure. HM: AAA screen: Eligibility: CT scan of abdomen completed in 2017 did not revealed evidence of AAA Colorectal cancer screening: awaiting outside records Prostate cancer screening: Last completed: <0.100 ng/mL 09/05/2023 08:05 Lung cancer screening: Lung CT from OSH reviewed, LDLCT in 12m Eligibility: DEXA: total body NM scan completed 05/2022 for eval of prostate ca was WNL ADMINISTERED Immunization Series Date Facility Reaction Info COVID-19 (MODERNA), MRNA, LNP-S,* 1 06/29/2022 No Site COVID-19 (MODERNA), MRNA, LNP-S,* 3 04/06/2021 No Site COVID-19 (MODERNA), MRNA, LNP-S,* 2 08/27/2020 No Site COVID-19 (MODERNA), MRNA, LNP-S,* 1 07/30/2020 No Site INFLUENZA, UNSPECIFIED FORMULATI* PCP OFFIC* INFLUENZA, UNSPECIFIED FORMULATI* 03/10/2022 No Site PNEUMOCOCCAL CONJUGATE PCV 13 03/26/2019 No Site PNEUMOCOCCAL POLYSACCHARIDE PPV23 04/01/2022 No Site ZOSTER RECOMBINANT C 09/29/2022 [facility]* ZOSTER RECOMBINANT 1 08/01/2022 [facility]* <C> REFUSED ======= Immunization Date Facility Info INFLUENZA, UNSPECIFIED FORMULATI* 07/29/2022 [facility]* <I> PNEUMOCOCCAL CONJUGATE, UNSPECIF* 07/29/2022 [facility]* <I> TDAP 07/28/2023 [facility]* <I> TDAP 07/29/2022 [facility]* <I> ZOSTER RECOMBINANT 07/29/2022 [facility]* <I> clinical reminders completed; educated on continuing to avoid salt, conc sweets; benefits of continued exercise, reg PCP visits, routine eyes exams Plan of care has been discussed with including expected therapeutic benefits and potential side effects of prescribed medications and treatments. Current medication list has been reconciled with and updated accordingly. was instructed to keep all scheduled appointments and to contact unit trust manager for any additional problems. Hilger verbalizes understanding and is in agreement with the plan of care. RTC: 6 months or sooner as needed PREVENTION & SCREENING: ALCOHOL: Clinical Reminder not due now or within a month BLOOD PRESSURE: Clinical Reminder not due now or within a month HEMOGLOBIN A1C: Clinical Reminder not due now or within a month Tdap Immunization: The patient declines to receive the recommended dose of Tdap vaccine. 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 CC GIANNA CM, Hilger generally has adequately controlled blood pressure with current medication regimen. Please follow-up with the to complete 1 week blood pressure check for reassessment. /day/ BRENDAN LAGUERRE, TIMOP-C NURSE PRACTITIONER Signed: 05/07/2024 12:37 06/27/2024 ADDENDUM STATUS: COMPLETED evaluated and treated at outside hospital due to non-STEMI. Underwent successful PCI to distal RCA intot he rPL branch and mid LAD. Started on Brilinta twice daily x 1 year. TTE showed normal LVEF 60 to 65%, grade 3 diastolic dysfunction, normal RV systolic function, mild aortic valve stenosis, mild mitral valve regurgitation. Records sent for scanning. /day/ BRENDAN LAGUERRE, AGNP-C NURSE PRACTITIONER Signed: 06/27/2024 07:44 [facility] HERNANDEZ [facility]
[2024-09-01 13:37] LABS: Basophils Absolute Auto 0.1 K/mm3 (0.0-0.1); Basophils Percent Auto 1.1 % (0.2-1.2); Eosinophils Absolute Auto 1.6 K/mm3 (0-0.3); Eosinophils Percent Auto 19.3 % (0-4.4); Hematocrit 45.1 % (42.0-52.0); Hemoglobin 14.4 g/dL (14.0-18.0); Immature Granulocyte Absolute 0.03 K/mm3 (0.00-0.031); Immature Granulocyte Percent A 0.4 % (0-0.5); Lymphocytes Absolute Auto 1.61 K/mm3 (0.9-3.2); Lymphocytes Percent Auto 19.4 % (18.3-44.2); Mean Corpuscular HGB Conc 31.9 g/dl (32-36); Mean Corpuscular Hemoglobin 29.6 pg (26-34); Mean Corpuscular Volume 92.6 fl (80-100); Mean Platelet Volume 9.4 fl (7.4-10.4); Monocytes Absolute Auto 0.5 K/mm3 (0.1-0.6); Monocytes Percent Auto 5.4 % (2.6-8.5); Neutrophils Absolute Auto 4.5 K/mm3 (1.3-6.7); Neutrophils Percent Auto 54.4 % (45.5-73.1); Platelet Count Result 330 k/mm3 (150-375); Red Blood Count 4.87 M/mm3 (4.6-6.20); Red Cell Distribution Width 14.6 % (11.5-14.5); White Blood Count 8.3 K/mm3 (4.5-10.0)
[2024-09-01 13:40] LABS: Alanine Aminotransferase 23 U/L (6-50); Albumin Level 4.5 g/dL (3.5-5.1); Alkaline Phosphatase 88 U/L (38-126); Anion Gap 8 mmol/L (4-12); Aspartate Amino Transferase 28 U/L (17-59); Bilirubin,Total 0.7 mg/dL (0.2-1.3); Blood Urea Nitrogen 24 mg/dL (9-20); Calcium 9.3 mg/dL (8.4-10.2); Carbon Dioxide 32 mmol/L (22-30); Chloride 99 mmol/L (98-107); Estimated CRCL calculation 65 ml/min; Estimated Glomerular Filt Rate > 60; Glucose 125 mg/dL (65-110); Lipase 167 U/L (23-300); Potassium 4.2 mmol/L (3.4-5.0); Sodium 139 mmol/L (137-145)
[2024-09-01 13:43] LABS: INR 1.1; Prothrombin Time 14.6 Seconds (11.1-14.7)
[2024-09-01 13:44] LABS: Partial Thromboplastin Time 28.4 Seconds (22.3-36.8)
[2024-09-01 13:51] LABS: Troponin I 0.012 ng/mL (0.000-0.034)
--- NOTE | 2024-09-01 13:56 | PC.NURSE ---
Patient denies any CP or SOB at this time
--- OUTSIDE RECORDS SUMMARY | 2024-09-01 14:16 | XMS_ITS | CONTINUITY OF CARE DOCUMENT ---
Author Name robert jones Address Unknown Organization [facility] Address [address] [place] [address] Phone [phone] Care Team Providers Care Rubber Tubing Backer Name Role Phone Vishal THOMPOSN, Kendra Unavailable LEONARD CONCEPCION MD Unavailable INSURANCE PROVIDERS Payer name Policy type / Coverage type [place] [id number] OPEN ACCESS Other [id number]
--- OUTSIDE RECORDS SUMMARY | 2024-09-01 14:16 | XMS_ITS | Continuity of Care Document ---
Author Name [facility] Organization [facility] Care Team Providers Care Children'S Counselor Name Role Phone [facility] Unavailable Unavailable Problems Combined list of problems from Department of Defense and Veterans Affairs facilities. It does not include entries that were removed or entered in error. Problem Status Onset Date Problem Type Date of Resolution Comments Source CAD - Coronary Artery Disease ([facility] 49650630) Active Condition Jun 27, 2024 Entered By: COLBY HERNANDEZ Comment: NSTEMI, s/p PCI to distal RCA intot he rPL branch and mid LAD. 06/2024 [facility] Carotid Artery Stenosis ([facility] 82013874) Active Condition [facility] Chronic diastolic heart failure Active Condition Jun 27, 2024 Entered By: COLBY HERNANDEZ Comment: Grade III DD noted per TTE at [facility] in 06/2024 [facility] Chronic obstructive lung disease Active Condition [facility] Constipation ([facility] 42693625) Active Condition [facility] Exposure to potentially hazardous substance Active Condition [facility] GERD - Gastro-Esophagea l Reflux Disease ([facility] 448005534) Active Condition [facility] Glaucoma Active Condition [facility] HTN - Hypertension ([facility] 75346748) Active Condition [facility] Obstructive Sleep Apnea of Adult ([facility] 0107970723017) Active Condition [facility] Prediabetes Active Condition [facility] Prostate cancer Active Condition Jul 29, 2022 Entered By: COLBY HERNANDEZ Comment: s/p prostatectomy 2021 [facility] Vitamin D Deficiency ([facility] 3982205) Active Condition [facility] Diagnosis: ICD-10-CM J44.89 Other specified chronic obstructive pulmonary disease Active Diagnosis [facility] Diagnosis: ICD-10-CM J44.9 Chronic obstructive pulmonary disease, unspecified Active Diagnosis [facility] Diagnosis: ICD-10-CM I25.10 Athscl heart disease of [place] coronary artery w/o ang pctrs Active Diagnosis [facility] Diagnosis: ICD-10-CM I10 Essential (primary) hypertension Active Diagnosis [facility] Diagnosis: ICD-10-CM Z51.81 Encounter for therapeutic drug level monitoring Active Diagnosis [facility] Diagnosis: ICD-10-CM I50.32 Chronic diastolic (congestive) heart failure Active Diagnosis [facility] Diagnosis: ICD-10-CM Z13.5 Encounter for screening for eye and ear disorders Active Diagnosis [facility] Diagnosis: ICD-10-CM I95.0 Idiopathic hypotension Active Diagnosis [facility] Diagnosis: ICD-10-CM Z23 Encounter for immunization Active Diagnosis [facility] Diagnosis: ICD-10-CM J96.11 Chronic respiratory failure with hypoxia Active Diagnosis [facility] Diagnosis: ICD-10-CM R94.6 Abnormal results of thyroid function studies Active Diagnosis [facility] Diagnosis: ICD-10-CM J90 Pleural effusion, not elsewhere classified Active Diagnosis [facility] Diagnosis: ICD-10-CM I65.29 Occlusion and stenosis of unspecified carotid artery Active Diagnosis [facility] Diagnosis: ICD-10-CM R06.02 Shortness of breath Active Diagnosis [facility] Medications Combined list of outpatient medications from Department of Defense and [facility] Affairs facilities.Medications provided include 1) outpatient medications [...] . RESPIR ATORY (INHAL ATION) ACTIVE 04/29/2025 [id number] NIKO VILLARREAL 2023 3 [facility] ALBUTEROL SO4 90MCG/ACTUA T (CFC-F) INHL,ORAL,8 .5GM INHALE 1 PUFF BY ORAL INHALATI ON FOUR TIMES A DAY NEEDED RESPIR ATORY (INHAL ATION) ACTIVE COLBY HERNANDEZ 2022 [facility] ASPIRIN 81MG TAB,EC TAKE ONE TABLET BY MOUTH ONCE A DAY TAKE WITH FOOD. ORAL ACTIVE 06/22/2025 [id number] 5 JEANNIE ZAVALETA 2024 120 [facility] AZELASTINE HCL 137MCG/SPRA Y INHL,NASAL, 30ML SPRAY 1 SPRAY IN NOSTRIL( S) TWICE A DAY FOR ALLERGIC RHINITIS *PRIME BEFORE USE* NASAL ACTIVE 01/12/2025 [id number] 5 DANITA ROCHA CAJAL 2023 2 [facility] CARVEDILOL 12.5MG TAB TAKE ONE-HALF TABLET BY MOUTH TWICE A DAY TAKE WITH FOOD. ORAL ACTIVE 06/22/2025 [id number] 5 JEANNIE ZAVALETA 2024 90 [facility] CHOLECALCIF HANY 50MCG (2,000UNIT) TAB TAKE ONE TABLET BY MOUTH ONCE A DAY FOR VITAMIN D DEFICIEN CY ORAL ACTIVE 09/06/2024 [id number] 4 COLBY HERNANDEZ 2023 100 [facility] DOCUSATE NA 100MG CAP TAKE 1 CAPSULE BY MOUTH TWICE A DAY ORAL ACTIVE COLBY HERNANDEZ 2022 [facility] EMPAGLIFLOZ IN 25MG TAB TAKE ONE-HALF TABLET BY MOUTH ONCE A DAY FOR DIABETES ORAL ACTIVE 08/28/2025 [id number] 5 COLBY HERNANDEZ 2024 45 [facility] EMPAGLIFLOZ IN 25MG TAB TAKE ONE-HALF TABLET BY MOUTH ONCE A DAY FOR DIABETES ORAL DISCONT INUED 09/12/2024 [id number] 4 COLBY HERNANDEZ 2023 45 [facility] FLUTICASONE 250MCG/SALM ETEROL 50MCG INHL,ORAL,D ISKUS,60 INHALE 1 INHALATI ON ORAL INHALATI ON TWICE A DAY FOR COPD (OPEN DISKUS; CLICK ONLY ONCE; MAY INHALE TWICE TO COMPLETE DOSE; CLOSE WHEN FINISHED ) RINSE MOUTH AND SPIT AFTER EACH USE. RESPIR ATORY (INHAL ATION) ACTIVE 01/12/2025 [id number] 5 SERENITYDANITA DUTTA KATIEEnrrique CAEVONNEL 2023 3 [facility] FLUTICASONE 250MCG/SALM ETEROL 50MCG INHL,ORAL,D ISKUS,60 INHALE 1 INHALATI ON ORAL INHALATI ON TWICE A DAY (OPEN DISKUS; CLICK ONLY ONCE; MAY INHALE TWICE TO COMPLETE DOSE; CLOSE WHEN FINISHED ) RINSE MOUTH AND SPIT AFTER EACH USE. RESPIR ATORY (INHAL ATION) DISCONT INUED (EDIT) 09/06/2024 [id number] 4 COLBY HERNANDEZ [address] [place] [address] [facility] FLUTICASONE PROPIONATE 50MCG/SPRAY SOLN,NASAL, 16GM INSTILL 1 SPRAY IN NOSTRIL( S) EVERY MORNING (MUST BE USED DIRECTED FOR MINIMUM OF 21 DAYS TO PROVIDE ADEQUATE BENEFITS ) NASAL DISCONT INUED BY BRYAN Duggan 10/11/2024 [id number] 4 NANO KEITH [address] [place] [address] [facility] FUROSEMIDE 40MG TAB TAKE ONE TABLET BY MOUTH EVERY MORNING FOR FLUID RETENTIO N (EDEMA) ORAL ACTIVE 08/28/2025 [id number] 5 COLBY HERNANDEZ [address] [place] [address] [facility] FUROSEMIDE 40MG TAB TAKE ONE TABLET BY MOUTH EVERY MORNING FOR FLUID RETENTIO N (EDEMA) ORAL DISCONT INUED 09/12/2024 [id number] 4 COLBY HERNANDEZ [address] [place] [address] [facility] HYOSCYAMINE SO4 0.125MG TAB TAKE ONE TABLET BY MOUTH ORAL ACTIVE COLBY HERNANDEZ 2022 [facility] LOSARTAN POTASSIUM 100MG TAB TAKE ONE-HALF TABLET BY MOUTH ONCE A DAY ORAL ACTIVE 08/23/2025 [id number] 5 COLBY HERNANDEZ 2024 45 [facility] [place] POTASSIUM 100MG TAB TAKE ONE-HALF TABLET BY MOUTH ONCE A DAY ORAL DISCONT INUED 08/28/2024 [id number] 5 COLBY HERNANDEZ 2024 15 [facility] [place] POTASSIUM 100MG TAB TAKE ONE-HALF TABLET BY MOUTH ONCE A DAY ORAL DISCONT INUED 08/15/2024 [id number] 5 COLBY HERNANDEZ 2024 15 [facility] MIDODRINE HCL 10MG TAB TAKE ONE TABLET BY MOUTH THREE TIMES A DAY FOR LOW BLOOD PRESSURE ORAL DISCONT INUED BY PROVIDE R 10/12/2023 [id number] 4 COLBY HERNANDEZ 2023 90 [facility] PANTOPRAZOL E NA 40MG TAB,EC TAKE ONE TABLET BY MOUTH EVERY MORNING BEFORE A MEAL TAKE 30 MINUTES BEFORE MEAL(S) ORAL ACTIVE 09/12/2024 [id number] 5 COLBY HERNANDEZ 2023 90 [facility] ROSUVASTATI N CA 40MG TAB TAKE ONE-HALF TABLET BY MOUTH EVERY EVENING ORAL ACTIVE 08/28/2025 [id number] 5 COLBY HERNANDEZ 2024 45 [facility] ROSUVASTATI N CA 40MG TAB TAKE ONE-HALF TABLET BY MOUTH EVERY EVENING ORAL DISCONT INUED 09/12/2024 [id number] 4 COLBY HERNANDEZ 2023 45 [facility] TICAGRELOR 90MG TAB TAKE ONE TABLET BY MOUTH TWICE A DAY FOR CORONARY ARTERY DISEASE ORAL ACTIVE 06/23/2025 [id number] 5 JEANNIE ZAVALETA 2024 180 [facility] TIMOLOL MALEATE 0.5% SOLN,OPH INSTILL 1 DROP IN BOTH EYES TWICE A DAY OPHTHA LMIC ACTIVE COLBY HERNANDEZ 2022 [facility] TIOTROPIUM 2.5MCG/ACTU AT INHL,ORAL,6 0D,4GM INHALE 2 INHALATI ONS ORAL INHALATI ON ONCE A DAY FOR COPD (ADMINIS TER AT SAME TIME EACH DAY) RESPIR ATORY (INHAL ATION) ACTIVE 01/12/2025 [id number] 5 DANITA ROCHA 2023 3 [facility] TIOTROPIUM 2.5MCG/ACTU AT INHL,ORAL,6 0D,4GM INHALE 2 INHALATI ONS ORAL INHALATI ON ONCE A DAY (ADMINIS TER AT SAME TIME EACH DAY) RESPIR ATORY (INHAL ATION) DISCONT INUED (EDIT) 09/06/2024 [id number] COLBY HERNANDEZ 2023 1 [facility] Immunizations Combined list of available immunizations from the Department of Defense and Veterans Affairs facilities. Immunization Series Date Given Administered By Site Reaction Lot Number CVX Code Drug Recording Studio Intern Status Comments Source INFLUENZA, HIGH-DOSE, TRIVALENT, PF 2023 JOAN GOLDEN NE RIGHT DELTO ID [id number] 135 complet ed [facility] INFLUENZA, UNSPECIFIED FORMULATION 2022 88 complet ed [facility] ZOSTER RECOMBINANT 2022 AURELIANO PEDROZA ANGELA LEFT DELTO ID [id number] 187 complet ed [facility] ZOSTER RECOMBINANT 1 2022 MATTIE VALDES R RIGHT DELTO ID [id number] 187 complet ed [id number] 11/03/23 [facility] COVID-19 (MODERNA), MRNA, LNP-S, BIVALENT BOOSTER, PF, 50 MCG/0.5 ML OR 25MCG/0.25 ML DOSE 1 2022 229 complet ed [facility] PNEUMOCOCCAL POLYSACCHARID E [id number] 2021 33 complet ed [facility] INFLUENZA, UNSPECIFIED FORMULATION [address] [facility] N COVID-19 (MODERNA), MRNA, LNP-S, PF, 100 MCG/0.5ML DOSE OR 50 MCG/0.25ML DOSE 3 2020 207 complet ed [facility] COVID-19 (MODERNA), MRNA, LNP-S, PF, 100 MCG/0.5ML DOSE OR 50 MCG/0.25ML DOSE 2 2020 207 complet ed [facility] COVID-19 (MODERNA), MRNA, LNP-S, PF, 100 MCG/0.5ML DOSE OR 50 MCG/0.25ML DOSE 1 2020 207 complet ed [facility] PNEUMOCOCCAL CONJUGATE PCV 13 2018 133 complet ed [facility] Results Combined list of [...] available to the clinician evaluating the patient. enGene Diamond, (910) Ordering Provider: GEOFF HERNANDEZ Report Released Date/Time: Aug 14, 2024 10:22 AM Reporting Lab: [facility] [address] [facility] [address] Performing Lab: [facility] [address] [facility] [address] [facility] RESPIRAT ORY PCR PANEL HUMAN CORONAVIRU [...] available to the clinician evaluating the patient. PowerVision First Class EV Conversions Diamond, (183) Ordering Provider: GEOFF HERNANDEZ Report Released Date/Time: Aug 14, 2024 10:22 AM Reporting Lab: [facility] [address] Performing Lab: [place] [address] [facility] [address] [facility] RESPIRAT ORY PCR PANEL HUMAN CORONAVIRU S [id number] RNA [PRESENCE] IN NASOPHARYN X BY MANUEL WITH NON-PROBE DETECTION Not Detected 08/14 Specimen Type: NASOPHARYNX Comment: The First Class EV Conversions RP Panel combines nested multiplex PCR and [...] available to the clinician evaluating the patient. PowerVision OTOYAaliyah Fields, (597) Ordering Provider: GEOFF HERNANDEZ Report Released Date/Time: Aug 14, 2024 10:22 AM Reporting Lab: [facility] [address] Performing Lab: [facility] [address] [facility] RESPIRAT ORY PCR PANEL HUMAN CORONAVIRU [...] available to the clinician evaluating the patient. HealOr, ([phone]) Ordering Provider: GEOFF HERNANDEZ Report Released Date/Time: Aug 14, 2024 10:22 AM Reporting Lab: [facility] [address] [place] [address] Performing Lab: [facility] [address] [facility] RESPIRAT ORY PCR PANEL HUMAN CORONAVIRU [...] available to the clinician evaluating the patient. enGene Diamond, (888) Ordering Provider: GEOFF HERNANDEZ Report Released Date/Time: Aug 14, 2024 10:22 AM Reporting Lab: [facility] [address] [facility] [address] Performing Lab: [facility] [address] [facility] RESPIRAT ORY PCR PANEL HUMAN METAPNEUMO [...] available to the clinician evaluating the patient. Comply ServeMasoud HILL, (119) Ordering Provider: GEOFF HERNANDEZ Report Released Date/Time: Aug 14, 2024 10:22 AM Reporting Lab: [address] [address] Performing Lab: [address] [phone] [place] [address] [facility] RESPIRAT ORY PCR PANEL RHINOVIRUS +ENTEROVIR [...] available to the clinician evaluating the patient. Comply ServeMasoud HILL (285) Ordering Provider: GEOFF HERNANDEZ Report Released Date/Time: Aug 14, 2024 10:22 AM Reporting Lab: [address] [address] Performing Lab: [address] [address] [facility] RESPIRAT ORY PCR PANEL INFLUENZA VIRUS [...] available to the clinician evaluating the patient. SMS THL HoldingsNed OTOYAaliyah Fields, (883) Ordering Provider: GEOFF HERNANDEZ Report Released Date/Time: Aug 14, 2024 10:22 AM Reporting Lab: [facility] [address] [place], [place] [phone] Performing Lab: [place] [phone] [facility] RESPIRAT ORY PCR PANEL INFLUENZA [...] available to the clinician evaluating the patient. PowerVision OTOYAaliyah Fields, (842) Ordering Provider: GEOFF HERNANDEZ Report Released Date/Time: Aug 14, 2024 10:22 AM Reporting Lab: [facility] [address] [place], [place] [id number] Performing Lab: [facility] [address] [facility] [address] [facility] RESPIRAT ORY PCR PANEL PARAINFLUE NZA [...] available to the clinician evaluating the patient. SMS THL HoldingsMasoud Marino, (264) Ordering Provider: GEOFF HERNANDEZ Report Released Date/Time: Aug 14, 2024 10:22 AM Reporting Lab: [facility] [address] [place] [phone] Performing Lab: [facility] [address] [place] [phone] RESPIRAT ORY PCR PANEL PARAINFLUE [...] available to the clinician evaluating the patient. Comply ServeMasoud HILL, (113) Ordering Provider: GEOFF HERNANDEZ Report Released Date/Time: Aug 14, 2024 10:22 AM Reporting Lab: [facility] [address] [facility] [address] Performing Lab: [address] [address] [facility] RESPIRAT ORY PCR PANEL PARAINFLUE NZA [...] available to the clinician evaluating the patient. enGene [facility], (071) Ordering Provider: GEOFF HERNANDEZ Report Released Date/Time: Aug 14, 2024 10:22 AM Reporting Lab: [address] [address] Performing Lab: [address] [address] [facility] RESPIRAT ORY PCR PANEL [place] NZA [...] available to the clinician evaluating the patient. enGene Diamond, (289) Ordering Provider: GEOFF HERNANDEZ Report Released Date/Time: Aug 14, 2024 10:22 AM Reporting Lab: [facility] [address] [facility] [address] Performing Lab: [facility] [address] [facility] [address] [facility] RESPIRAT ORY PCR PANEL RESPIRATOR Y SYNCYTIAL VIRUS RNA [PRESENCE] IN NASOPHARYN X BY MANUEL WITH NON-PROBE DETECTION Not Detected 08/14 Specimen Type: NASOPHARYNX Comment: The First Class EV Conversions RP Panel combines nested multiplex PCR and [...] available to the clinician evaluating the patient. PowerVision First Class EV Conversions Diamond, (650) Ordering Provider: GEOFF HERNANDEZ Report Released Date/Time: Aug 14, 2024 10:22 AM Reporting Lab: [facility] [address] Performing Lab: [place] [address] [facility] [address] [facility] RESPIRAT ORY PCR PANEL BORDETELLA PERTUSSIS. [...] available to the clinician evaluating the patient. Comply ServeMasoud HILL, (575) Ordering Provider: GEOFF HERNANDEZ Report Released Date/Time: Aug 14, 2024 10:22 AM Reporting Lab: [place] [phone] Performing Lab: [address] [address] [facility] RESPIRAT ORY PCR PANEL CHLAMYDOPH CHRISTINE PNEUMONIAE [...] available to the clinician evaluating the patient. Comply ServeMasoud HILL, (870) Ordering Provider: GEOFF HERNANDEZ Report Released Date/Time: Aug 14, 2024 10:22 AM Reporting Lab: [facility] [address] [place] [address] Performing Lab: [address] [address] [facility] RESPIRAT ORY PCR PANEL MYCOPLASMA PNEUMONIAE [...] available to the clinician evaluating the patient. Comply ServeMasoud HILL, (158) Ordering Provider: GEOFF HERNANDEZ Report Released Date/Time: Aug 14, 2024 10:22 AM Reporting Lab: [facility] [address] [facility] [address] Performing Lab: [address] [address] [facility] RESPIRAT ORY PCR PANEL BORDETELLA PARAPERTUS SIS [id number] DNA [PRESENCE] IN NASOPHARYN X BY MANUEL WITH NON-PROBE DETECTION Not Detected 08/14 Specimen Type: NASOPHARYNX Comment: The First Class EV Conversions RP Panel combines nested multiplex PCR and [...] available to the clinician evaluating the patient. Comply ServeSERGIO OTOYAaliyah Fields, (613) Ordering Provider: GEOFF HERNANDEZ Report Released Date/Time: Aug 14, 2024 10:22 AM Reporting Lab: [facility] [address] [facility] [address] Performing Lab: [address] [address] [facility] RESPIRAT ORY PCR PANEL SARS-COV-2 (COVID-19) RNA [PRESENCE] IN NASOPHARYN X BY MANUEL WITH NON-PROBE DETECTION Not Detected 08/14 Specimen Type: NASOPHARYNX Comment: The OTOYArray RP Panel combines nested multiplex PCR and [...] available to the clinician evaluating the patient. enGene [facility], (645) Ordering Provider: GEOFF HERNANDEZ Report Released Date/Time: Aug 14, 2024 10:22 AM Reporting Lab: [place] [address] Performing Lab: [address] [phone] [facility] TOTAL T3 (STL-PB) TRIIODOTHY RONINE (T3) [MASS/VOLU ME] IN SERUM OR PLASMA 119.24 ng/dL 58 - 159 08/01 Specimen Type: PLASMA No comment entered. Ordering Provider: GEOFF HERNANDEZ Report Released Date/Time: Jul 30, 2024 01:22 PM Reporting Lab: [address] [address] Performing Lab: [address] [phone] [place] [address] [facility] MICRAL/C REAT PROFILE (STL) ALBUMIN [MASS/VOLU ME] IN URINE 6.3 mg/L 07/23 Specimen Type: URINE No comment entered. Ordering Provider: GEOFF HERNANDEZ Report Released Date/Time: Jul 16, 2024 02:46 PM Reporting Lab: [place] [phone] Performing Lab: [address] [address] [facility] MICRAL/C REAT PROFILE (STL) ALBUMIN/CR EATININE [MASS RATIO] IN URINE 19 mg/g 0 - 29 07/23 Specimen Type: URINE No comment entered. Ordering Provider: GEOFF HERNANDEZ Report Released Date/Time: Jul 16, 2024 02:46 PM Reporting Lab: [address] [address] Performing Lab: [address] [phone] [place] [address] [facility] MICRAL/C REAT PROFILE (STL) CREATININE [MASS/VOLU ME] IN URINE 33.7 mg/dL 63 - 166 07/23 L Specimen Type: URINE No comment entered. Ordering Provider: GEOFF HERNANDEZ Report Released Date/Time: Jul 16, 2024 02:46 PM Reporting Lab: [place] [phone] Performing Lab: [address] [phone] [place] [address] [facility] ALPHA-1 ANTITRYP SIN (STL-PB) ALPHA-1 ANTITRYPSI N (STL-PB) 230 mg/dL 84 - 200 07/23 H Specimen Type: PLASMA No comment entered. Ordering Provider: Georges VILLARREAL Report Released Date/Time: Jul 23, 2024 10:40 AM Reporting Lab: [address] [address] Performing Lab: [address] [phone] [place] [address] CBC LEUKOCYTES [#/VOLUME] IN BLOOD BY AUTOMATED COUNT 8.4 10*3/uL 3.6 - 11.2 07/23 Specimen Type: BLOOD No comment entered. Ordering Provider: GEOFF HERNANDEZ Report Released Date/Time: Jul 16, 2024 02:46 PM Reporting Lab: [facility] [address] [place] [phone] Performing Lab: [address] [phone] [place] [address] [facility]OC CBC ERYTHROCYT ES [#/VOLUME] IN BLOOD BY AUTOMATED COUNT 5.34 10*6/uL 4.10 - 5.70 07/23 Specimen Type: BLOOD No comment entered. Ordering Provider: GEOFF HERNANDEZ Report Released Date/Time: Jul 16, 2024 02:46 PM Reporting Lab: [place] [address] Performing Lab: [place] [phone] [facility] CBC HEMOGLOBIN [MASS/VOLU ME] IN BLOOD 15.3 g/dL 13.1 - 16.8 07/23 Specimen Type: BLOOD No comment entered. Ordering Provider: GEOFF HERNANDEZ Report Released Date/Time: Jul 16, 2024 02:46 PM Reporting Lab: [place] [address] Performing Lab: [address] [facility] CBC HEMATOCRIT [VOLUME FRACTION] OF BLOOD 48.6 38.2 - 48.4 07/23 H Specimen Type: BLOOD No comment entered. Ordering Provider: GEOFF HERNANDEZ Report Released Date/Time: Jul 16, 2024 02:46 PM Reporting Lab: [place] [address] Performing Lab: [address] [phone] [facility] CBC MCV [ENTITIC VOLUME] BY AUTOMATED COUNT 91.0 fL 80.0 - 100.0 07/23 Specimen Type: BLOOD No comment entered. Ordering Provider: GEOFF HERNANDEZ Report Released Date/Time: Jul 16, 2024 02:46 PM Reporting Lab: [place] [address] Performing Lab: [address] [phone] [place] [address] [facility] CBC MCH [ENTITIC MASS] BY AUTOMATED COUNT 28.7 pg 27.0 - 34.0 07/23 Specimen Type: BLOOD No comment entered. Ordering Provider: GEOFF HERNANDEZ Report Released Date/Time: Jul 16, 2024 02:46 PM Reporting Lab: [place] [address] Performing Lab: [address] [phone] [place] [address] [facility]OC CBC MCHC [MASS/VOLU ME] BY AUTOMATED COUNT 31.5 g/dL 33.0 - 36.0 07/23 L Specimen Type: BLOOD No comment entered. Ordering Provider: GEOFF HERNANDEZ Report Released Date/Time: Jul 16, 2024 02:46 PM Reporting Lab: [place] [address] Performing Lab: [address] [facility] CBC PLATELETS [#/VOLUME] IN BLOOD BY AUTOMATED COUNT 326 10*3/uL 150 - 400 07/23 Specimen Type: BLOOD No comment entered. Ordering Provider: GEOFF HERNANDEZ Report Released Date/Time: Jul 16, 2024 02:46 PM Reporting Lab: [facility] [address] [place] [address] Performing Lab: [address] [phone] [facility] CBC PLATELET MEAN VOLUME [ENTITIC VOLUME] IN BLOOD BY AUTOMATED COUNT 9.5 fL 7.5 - 11.2 07/23 Specimen Type: BLOOD No comment entered. Ordering Provider: GEOFF HERNANDEZ Report Released Date/Time: Jul 16, 2024 02:46 PM Reporting Lab: [place] [address] Performing Lab: [address] [phone] [facility] CBC ERYTHROCYT E DISTRIBUTI ON WIDTH [RATIO] BY AUTOMATED COUNT 13.9 11.8 - 15.1 07/23 Specimen Type: BLOOD No comment entered. Ordering Provider: GEOFF HERNANDEZ Report Released Date/Time: Jul 16, 2024 02:46 PM Reporting Lab: [facility] [address] [place] [address] Performing Lab: [facility] [address] [facility] [address] [facility] CBC SEGMENTED NEUTROPHIL S/100 LEUKOCYTES IN BLOOD BY MANUAL COUNT 49.5 07/23 Specimen Type: BLOOD No comment entered. Ordering Provider: GEOFF HERNANDEZ Report Released Date/Time: Jul 16, 2024 02:46 PM Reporting Lab: [facility] [address] [place] [address] Performing Lab: [facility] [address] [place] [phone] [facility] CBC EOSINOPHIL S/100 LEUKOCYTES IN BLOOD BY MANUAL COUNT 29.2 07/23 Specimen Type: BLOOD No comment entered. Ordering Provider: GEOFF HERNANDEZ Report Released Date/Time: Jul 16, 2024 02:46 PM Reporting Lab: [facility] [address] [facility] [address] Performing Lab: [facility] [address] [facility] [address] [facility] CBC BASOPHILS/ 100 LEUKOCYTES IN BLOOD BY MANUAL COUNT 1.8 07/23 Specimen Type: BLOOD No comment entered. Ordering Provider: GEOFF HERNANDEZ Report Released Date/Time: Jul 16, 2024 02:46 PM Reporting Lab: [facility] [address] [facility] [address] Performing Lab: [facility] [address] [facility] [address] [facility] CBC LYMPHOCYTE S/100 LEUKOCYTES IN BLOOD BY MANUAL COUNT 8.0 07/23 Specimen Type: BLOOD No comment entered. Ordering Provider: GEOFF HERNANDEZ Report Released Date/Time: Jul 16, 2024 02:46 PM Reporting Lab: [facility] [address] [facility] [address] Performing Lab: [place] [address] [facility] [address] [facility] CBC VARIANT LYMPHOCYTE S/100 LEUKOCYTES IN BLOOD BY MANUAL COUNT 11.5 07/23 Specimen Type: BLOOD No comment entered. Ordering Provider: GEOFF HERNANDEZ Report Released Date/Time: Jul 16, 2024 02:46 PM Reporting Lab: [address] [address] Performing Lab: [address] [address] [facility] CBC BASOPHILS [#/VOLUME] IN BLOOD BY MANUAL COUNT 0.15 10*3/uL 0.01 - 0.20 07/23 Specimen Type: BLOOD No comment entered. Ordering Provider: GEOFF HERNANDEZ Report Released Date/Time: Jul 16, 2024 02:46 PM Reporting Lab: [address] [address] Performing Lab: [address] [address] [facility] CBC EOSINOPHIL S [#/VOLUME] IN BLOOD BY MANUAL COUNT 2.45 10*3/uL 0.00 - 0.60 07/23 H Specimen Type: BLOOD No comment entered. Ordering Provider: GEOFF HERNANDEZ Report Released Date/Time: Jul 16, 2024 02:46 PM Reporting Lab: [place] [address] [facility] [address] Performing Lab: [address] [address] [facility] CBC LYMPHOCYTE S [#/VOLUME] IN BLOOD BY MANUAL COUNT 1.64 10*3/uL 0.77 - 4.50 07/23 Specimen Type: BLOOD No comment entered. Ordering Provider: GEOFF HERNANDEZ Report Released Date/Time: Jul 16, 2024 02:46 PM Reporting Lab: [address] [address] Performing Lab: [place] [address] [facility] [address] [facility] CBC NEUTROPHIL S [#/VOLUME] IN BLOOD BY MANUAL COUNT 4.16 10*3/uL 2.10 - 8.00 07/23 Specimen Type: BLOOD No comment entered. Ordering Provider: GEOFF HERNANDEZ Report Released Date/Time: Jul 16, 2024 02:46 PM Reporting Lab: [place] [address] [facility] [address] Performing Lab: [place] [address] [place] [phone] [facility] CBC PAPPENHEIM ER BODIES 0 07/23 Specimen Type: BLOOD No comment entered. Ordering Provider: GEOFF HERNANDEZ Report Released Date/Time: Jul 16, 2024 02:46 PM Reporting Lab: [place] [address] [place] [phone] Performing Lab: [place] [address] [place] [phone] [facility] CBC PLATELET ADEQUACY [PRESENCE] IN BLOOD BY LIGHT MICROSCOPY DECREASE D 07/23 Specimen Type: BLOOD No comment entered. Ordering Provider: GEOFF HERNANDEZ Report Released Date/Time: Jul 16, 2024 02:46 PM Reporting Lab: [place] [address] [facility] [address] Performing Lab: [place] [address] [facility] [address] [address] [facility] CBC MANUAL DIFFERENTI AL COMMENT [INTERPRET ATION] IN BLOOD NARRATIVE Yes 07/23 Specimen Type: BLOOD No comment entered. Ordering Provider: GEOFF HERNANDEZ Report Released Date/Time: Jul 16, 2024 02:46 PM Reporting Lab: [place] [address] [facility] [address] Performing Lab: [place] [address] [facility] [phone] [facility] COMPREHE NSIVE METABOLI C PANEL CREATININE [MASS/VOLU ME] IN SERUM OR PLASMA 0.90 mg/dL 0.7 - 1.3 07/23 Specimen Type: PLASMA Comment: No hemolysis noted. Ordering Provider: GEOFF HERNANDEZ Report Released Date/Time: Jul 16, 2024 02:46 PM Reporting Lab: [place] [address] [place] [phone] Performing Lab: [place] [address] [place] [phone] [facility] COMPREHE NSIVE METABOLI C PANEL UREA NITROGEN [MASS/VOLU ME] IN SERUM OR PLASMA 16.8 mg/dL 9.0 - 25.0 07/23 Specimen Type: PLASMA Comment: No hemolysis noted. Ordering Provider: GEOFF HERNANDEZ Report Released Date/Time: Jul 16, 2024 02:46 PM Reporting Lab: [place] [address] [place] [phone] Performing Lab: [place] [address] [facility] [address] [facility] COMPREHE NSIVE METABOLI C PANEL GLUCOSE [MASS/VOLU ME] IN SERUM OR PLASMA 106 mg/dL 72 - 99 07/23 H Specimen Type: PLASMA Comment: No hemolysis noted. Ordering Provider: GEOFF HERNANDEZ Report Released Date/Time: Jul 16, 2024 02:46 PM Reporting Lab: [place] [address] [place] [phone] Performing Lab: [place] [address] [facility] [address] [facility] COMPREHE NSIVE METABOLI C PANEL SODIUM [MOLES/VOL UME] IN SERUM OR PLASMA 143 meq/L 136 - 145 07/23 Specimen Type: PLASMA Comment: No hemolysis noted. Ordering Provider: GEOFF HERNANDEZ Report Released Date/Time: Jul 16, 2024 02:46 PM Reporting Lab: [place] [address] [place] [phone] Performing Lab: [place] [address] [address] [facility] [address] [facility] COMPREHE NSIVE METABOLI C PANEL POTASSIUM [MOLES/VOL UME] IN SERUM OR PLASMA 4.1 meq/L 3.5 - 5 07/23 Specimen Type: PLASMA Comment: No hemolysis noted. Ordering Provider: GEOFF HERNANDEZ Report Released Date/Time: Jul 16, 2024 02:46 PM Reporting Lab: [place] [address] [facility] [address] Performing Lab: [place] [address] [facility] [address] [facility] COMPREHE NSIVE METABOLI C PANEL CHLORIDE [MOLES/VOL UME] IN SERUM OR PLASMA 102 meq/L 98 - 107 07/23 Specimen Type: PLASMA Comment: No hemolysis noted. Ordering Provider: GEOFF HERNANDEZ Report Released Date/Time: Jul 16, 2024 02:46 PM Reporting Lab: [place] [address] [facility] [address] Performing Lab: [place] [address] [facility] [address] [facility] COMPREHE NSIVE METABOLI C PANEL CARBON DIOXIDE, TOTAL [MOLES/VOL UME] IN SERUM OR PLASMA 30 meq/L 22 - 31 07/23 Specimen Type: PLASMA Comment: No hemolysis noted. Ordering Provider: GEOFF HERNANDEZ Report Released Date/Time: Jul 16, 2024 02:46 PM Reporting Lab: [facility] [address] Performing Lab: [place] [address] [facility] [address] [facility] COMPREHE NSIVE METABOLI C PANEL CALCIUM [MASS/VOLU ME] IN SERUM OR PLASMA 10.1 mg/dL 8.4 - 10.4 07/23 Specimen Type: PLASMA Comment: No hemolysis noted. Ordering Provider: GEOFF HERNANDEZ Report Released Date/Time: Jul 16, 2024 02:46 PM Reporting Lab: [facility] [address] [facility] [address] Performing Lab: [facility] [address] [facility] [address] [facility] COMPREHE NSIVE METABOLI C PANEL PROTEIN [MASS/VOLU ME] IN SERUM OR PLASMA 8.8 g/dL 6 - 8.6 07/23 H Specimen Type: PLASMA Comment: No hemolysis noted. Ordering Provider: GEOFF HERNANDEZ Report Released Date/Time: Jul 16, 2024 02:46 PM Reporting Lab: [place] [address] [facility] [address] Performing Lab: [place] [address] [facility] [phone] [place] [address] [facility] COMPREHE NSIVE METABOLI C PANEL ALBUMIN [MASS/VOLU ME] IN SERUM OR PLASMA 4.2 g/dL 3.4 - 5 07/23 Specimen Type: PLASMA Comment: No hemolysis noted. Ordering Provider: GEOFF HERNANDEZ Report Released Date/Time: Jul 16, 2024 02:46 PM Reporting Lab: [place] [address] [facility] [address] Performing Lab: [place] [address] [facility] [address] [facility] COMPREHE NSIVE METABOLI C PANEL BILIRUBIN. TOTAL [MASS/VOLU ME] IN SERUM OR PLASMA 0.5 mg/dL 0.2 - 1.2 07/23 Specimen Type: PLASMA Comment: No hemolysis noted. Ordering Provider: GEOFF HERNANDEZ Report Released Date/Time: Jul 16, 2024 02:46 PM Reporting Lab: [facility] [address] Performing Lab: [facility] [address] [facility] COMPREHE NSIVE METABOLI C PANEL ALKALINE PHOSPHATAS E [ENZYMATIC ACTIVITY/V OLUME] IN SERUM OR PLASMA 109 U/L 40 - 150 07/23 Specimen Type: PLASMA Comment: No hemolysis noted. Ordering Provider: GEOFF HERNANDEZ Report Released Date/Time: Jul 16, 2024 02:46 PM Reporting Lab: [facility] [address] [place] [address] Performing Lab: [facility] [address] [facility] [address] [facility] COMPREHE NSIVE METABOLI C PANEL ASPARTATE AMINOTRANS FERASE [ENZYMATIC ACTIVITY/V OLUME] IN SERUM OR PLASMA 19 U/L 5 - 34 07/23 Specimen Type: PLASMA Comment: No hemolysis noted. Ordering Provider: GEOFF HERNANDEZ Report Released Date/Time: Jul 16, 2024 02:46 PM Reporting Lab: [facility] [address] [place] [address] Performing Lab: [facility] [address] [place] [address] [phone] [place] [address] [facility] COMPREHE NSIVE METABOLI C PANEL ALANINE AMINOTRANS FERASE [ENZYMATIC ACTIVITY/V OLUME] IN SERUM OR PLASMA 18 U/L 8 - 40 07/23 Specimen Type: PLASMA Comment: No hemolysis noted. Ordering Provider: GEOFF HERNANDEZ Report Released Date/Time: Jul 16, 2024 02:46 PM Reporting Lab: [facility] [address] [facility] [address] Performing Lab: [facility] [address] [facility] [phone] [place] [address] [facility] COMPREHE NSIVE METABOLI C PANEL GLOMERULAR FILTRATION RATE/1.73 SQ M.PREDICTE D [VOLUME RATE/AREA] IN SERUM, PLASMA OR BLOOD BY CREATININE -BASED FORMULA (CKD-EPI 2020) 88.5 60 07/23 Specimen Type: PLASMA Comment: No hemolysis noted. Ordering Provider: GEOFF HERNANDEZ Report Released Date/Time: Jul 16, 2024 02:46 PM Reporting Lab: [facility] [address] [facility] [address] Performing Lab: [facility] [address] [facility] [address] [facility] HGA1C HEMOGLOBIN A1C/HEMOGL OBIN.TOTAL IN BLOOD 6.2 4.0 - 6.0 07/23 H Specimen Type: BLOOD No comment entered. Ordering Provider: GEOFF HERNANDEZ Report Released Date/Time: Jul 16, 2024 02:46 PM Reporting Lab: [place] [address] [facility] [address] Performing Lab: [address] [address] [facility] LIPID PANEL (STL) CHOLESTERO L [MASS/VOLU ME] IN SERUM OR PLASMA 94 mg/dL 0 - 200 07/23 Specimen Type: PLASMA Comment: No hemolysis noted. Ordering Provider: GEOFF HERNANDEZ Report Released Date/Time: Jul 16, 2024 02:46 PM Reporting Lab: [address] [address] Performing Lab: [address] [address] [facility] LIPID PANEL (STL) TRIGLYCERI DE [MASS/VOLU ME] IN SERUM OR PLASMA 112 mg/dL 0 - 150 07/23 Specimen Type: PLASMA Comment: No hemolysis noted. Ordering Provider: GEOFF HERNANDEZ Report Released Date/Time: Jul 16, 2024 02:46 PM Reporting Lab: [address] [address] Performing Lab: [address] [address] [facility] LIPID PANEL (STL) CHOLESTERO L IN LDL [MASS/VOLU ME] IN SERUM OR PLASMA BY CALCULATIO N 40 mg/dL 07/23 Specimen Type: PLASMA Comment: No hemolysis noted. Ordering Provider: GEOFF HERNANDEZ Report Released Date/Time: Jul 16, 2024 02:46 PM Reporting Lab: [address] [address] Performing Lab: [address] [address] [place] [place] LIPID PANEL (STL) CHOLESTERO L IN HDL [MASS/VOLU ME] IN SERUM OR PLASMA 32 mg/dL 40 07/23 L Specimen Type: PLASMA Comment: No hemolysis noted. Ordering Provider: GEOFF HERNANDEZ Report Released Date/Time: Jul 16, 2024 02:46 PM Reporting Lab: [place] [address] Performing Lab: [address] [facility] TSH W/ REFLEX FT4 (STL) THYROTROPI N [UNITS/VOL UME] IN SERUM OR PLASMA 0.052 u[IU]/mL 0.47 - 5 07/23 L Specimen Type: PLASMA No comment entered. Ordering Provider: GEOFF HERNANDEZ Report Released Date/Time: Jul 16, 2024 02:46 PM Reporting Lab: [place] [address] Performing Lab: [address] [facility] TSH W/ REFLEX FT4 (STL) FREE T4(REFLEX) 1.27 ng/mL 0.7 - 1.48 07/23 Specimen Type: PLASMA No comment entered. Ordering Provider: GEOFF HERNANDEZ Report Released Date/Time: Jul 16, 2024 02:46 PM Reporting Lab: [place] [address] [place] [address] Performing Lab: [address] [facility] IMMUNOGL OBULIN E IGE [UNITS/VOL UME] IN SERUM OR PLASMA 52 kU/L - 114 07/23 Specimen Type: SERUM Comment: Test Performed by [employer] [facility], [address] [place] [address] Bandar De La Garza M.D., Ph.D., Director of Laboratorie s , [facility] [id number] Ordering Provider: Georges VILLARREAL Report Released Date/Time: Jul 23, 2024 10:40 AM Reporting Lab: [facility] [address] [facility] [address] Performing Lab: [facility] [address] [facility] [address] [facility] Vital Signs Combined list of inpatient and outpatient Vital Signs from Department of Defense and Veterans Affairs, ranging from 12 months to all on record, depending upon the facility. Vital Sign Value Date Comments Source SYSTOLIC BLOOD PRESSURE 144 08/29/2024 14:18:23 [facility] DIASTOLIC BLOOD PRESSURE 82 08/29/2024 14:18:23 [facility] PULSE OXIMETRY 95 08/29/2024 14:18:23 [facility] PULSE 65 08/29/2024 14:18:23 [facility] SYSTOLIC BLOOD PRESSURE 163 08/27/2024 15:00:00 [facility] DIASTOLIC BLOOD PRESSURE 79 08/27/2024 15:00:00 [facility] PULSE OXIMETRY 93 08/27/2024 15:00:00 [facility] PULSE 70 08/27/2024 15:00:00 [facility] SYSTOLIC BLOOD PRESSURE 137 08/22/2024 13:00:00 [facility] DIASTOLIC BLOOD PRESSURE 77 08/22/2024 13:00:00 [facility] PULSE OXIMETRY 93 08/22/2024 13:00:00 [facility] PULSE 63 08/22/2024 13:00:00 [facility] SYSTOLIC BLOOD PRESSURE 147 08/20/2024 13:00:00 [facility] DIASTOLIC BLOOD PRESSURE 71 08/20/2024 13:00:00 [facility] PULSE OXIMETRY 95 08/20/2024 13:00:00 [facility] PULSE 64 08/20/2024 13:00:00 [facility] SYSTOLIC BLOOD PRESSURE 112 08/15/2024 13:00:00 [facility] DIASTOLIC BLOOD PRESSURE 64 08/15/2024 13:00:00 [facility] PULSE OXIMETRY 95 08/15/2024 13:00:00 [facility] PULSE 73 08/15/2024 13:00:00 [facility] Encounters Combined list of: 1) Encounters from Department of [facility] Affairs facilities going backup to the last 18 months, not all [place] inpatient encounters are included; 2) Encounters from the Department of [facility] facilities going backup to 280 months. Location Location Details Encounter Type Encounter Number Reason For Visit Attending Provider ADM Date DC Date Status Disposition Source [facility] Outpatient Encounter [id number] 05/05 [facility] Outpatient Encounter [id number] 07/26 [facility] OFFICE O/P EST LOW 20 MIN [id number] Diagnos is: ICD-10- CM R06.02 Shortne ss of breath Jeronimo HERNANDEZ 07/28 [facility] Outpatient Encounter [id number] FIDELINA DEVINE 07/28 [facility] N [facility] Outpatient Encounter [id number] 08/03 [facility] Outpatient Encounter [id number] 08/06 [facility] N [facility] Outpatient Encounter [id number] 08/06 [facility] Outpatient Encounter [id number] 08/07 [facility] Outpatient Encounter [id number] 08/10 [facility] Outpatient Encounter [id number] 08/10 [facility] OFFICE O/P EST LOW 20 MIN [id number] Diagnos is: ICD-10- CM I10 Essenti al (primar y) hyperte nsJeronimo Leyva 08/30 [facility] Outpatient Encounter [id number] ALICIA PEDROZA 09/04 [facility] Outpatient Encounter [id number] 09/04 [facility] Outpatient Encounter [id number] 09/04 [facility] Outpatient Encounter [id number] [facility] Outpatient Encounter [id number] 09/11 [facility] Outpatient Encounter [id number] 09/12 [facility] Outpatient Encounter [id number] 09/13 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 Outpatient Encounter [id number] 10/08 [facility] HC PRO PHONE CALL 5-10 MIN [id number] Diagnos is: ICD-10- CM J44.9 Chronic obstruc tive pulmona ry disease , unspeci fied Klaus VERDUGO 10/09 [facility] MEASURE BLOOD OXYGEN LEVEL [id number] Diagnos is: ICD-10- CM J44.9 Chronic obstruc tive pulmona ry disease , unspeci fied WUBUZZ AVENDAÑO R 10/10 [facility] OFF/OP CNSLTJ NEW/EST MOD 40 [id number] Diagnos is: ICD-10- CM J44.9 Chronic obstruc tive pulmona ry disease , unspeci fied CARTER ROCHA 10/10 [facility] Outpatient Encounter [id number] 10/18 [facility] Outpatient Encounter [id number] 10/24 [facility] HC PRO PHONE CALL 5-10 MIN [id number] Diagnos is: ICD-10- CM J44.9 Chronic obstruc tive pulmona ry disease , unspeci fied MARIAH MARQUEZ P 10/24 [facility] Outpatient Encounter [id number] ALICIA PEDROZA NDOLYN 10/25 [facility] Outpatient Encounter [id number] 11/01 [facility] INSERT CATH PLEURA W/ IMAGE [id number] Diagnos is: ICD-10- CM J90 Pleural effusio n, not elsewhe re classif ied CARTER ROCHA 11/01 [facility] Outpatient Encounter [id number] 11/01 [facility] Outpatient Encounter [id number] MADDY GASTON S 11/01 [facility] Outpatient Encounter [id number] MARIO GASTONAT S 11/02 [facility] Outpatient Encounter [id number] DAGMAR CINTRON NA 11/02 [facility] Outpatient Encounter [id number] 11/08 [facility] Outpatient Encounter [id number] 11/09 [facility] Outpatient Encounter [id number] ALICIA PEDROZAN 11/09 [facility] OFFICE O/P NEW MOD 45 MIN [id number] Diagnos is: ICD-10- CM R94.6 Abnorma l results of thyroid functio n studies PICHARDO-JACQUI MATIASSOPHIE OS 11/12 [facility] Outpatient Encounter [id number] 11/15 [facility] Outpatient Encounter [id number] 11/26 [facility] HC PRO PHONE CALL 5-10 MIN [id number] Diagnos is: ICD-10- CM J44.9 Chronic obstruc tive pulmona ry disease , unspeci fied STRIEGEL,C YNTHIA A 11/26 [facility] QNHP OL DIG ASSMT&MGMT 5-10 [id number] Diagnos is: ICD-10- CM J44.9 Chronic obstruc tive pulmona ry disease , unspeci fied STRIEGEL,C YNTHIA A 11/29 [facility] HC PRO PHONE CALL 5-10 MIN [id number] Diagnos is: ICD-10- CM J44.9 Chronic obstruc tive pulmona ry disease , unspeci fied STRIEGEL,C YNTHIA A 12/20 [facility] OFFICE O/P EST HI 40 MIN [id number] Diagnos is: ICD-10- CM J96.11 Chronic respira tory failure with hypoxia AJCATRER ELOY EUCEDA 01/11 [facility] HOME VISIT RESP THERAPY [id number] Diagnos is: ICD-10- CM J44.9 Chronic obstruc tive pulmona ry disease , unspeci fiCHRISSY Cavazos M 01/11 [facility] Outpatient Encounter [id number] 01/17 [facility] Outpatient Encounter [id number] VITA EPPERSON 01/25 [facility] Outpatient Encounter [id number] 01/27 [facility] Outpatient Encounter [id number] VITA EPPERSON M 02/05 [facility] Outpatient Encounter [id number] 02/05 [facility] CB OFFICE O/P EST MOD 30 MIN [id number] Diagnos is: ICD-10- CM Z23 Encount er for immuniz Jeronimo Caba 02/06 [facility] Encounter [id number] 02/07 [facility] Outpatient Encounter [id number] 02/08 [facility] Outpatient Encounter [id number] Diagnos is: ICD-10- CM I95.0 Idiopat hic hypoten jammie [facility] 02/11 [facility] OFF/OP CNSLTJ NEW/EST MOD 40 [id number] Diagnos is: ICD-10- CM I50.32 Chronic diastol ic (conges tive) heart failure OU,[facility] 02/26 [facility] IMG RTA DETCJ/MNTR DS STAFF 34533-5.65 [id number] Diagnos is: ICD-10- CM Z13.5 Encount er for screeni ng for eye and ear disorde Jeronimo Baldwin 02/26 [facility] Outpatient Encounter [id number] Diagnos is: ICD-10- CM Z13.5 Encount er for screeni ng for eye and ear disorde CIELO Gudino 02/27 [facility] OFFICE O/P EST HI 40 MIN [id number] Diagnos is: ICD-10- CM J44.9 Chronic obstruc tive pulmona ry disease , unspeci fied DEMVENESSA, NIKO 04/26 [facility] OFF/OP CNSLTJ NEW/EST LOW 30 09368-5.65 [id number] 2 Diagnos is: ICD-10- CM J44.89 Other specifi ed chronic obstruc tive pulmona ry disease OHLMS,PRO Y 05/07 [facility] Outpatient Encounter [id number] [facility] Outpatient Encounter [id number] 06/03 [facility] N [facility] Outpatient Encounter [id number] ALICIA PEDROZA NDJENISEN 06/04 [facility] Outpatient Encounter [id number] 06/19 [facility] Outpatient Encounter [id number] JOSSUE LIMON N 06/19 [facility] Outpatient Encounter [id number] 06/19 [facility] Outpatient Encounter [id number] 06/20 [facility] Outpatient Encounter [id number] 3 06/20 [facility] Outpatient Encounter [id number] [id number] 06/21 [facility] PH1 ASSMT&MGMT NQHP 11-20 [id number] [id number] Diagnos is: ICD-10- CM I50.32 Chronic diastol ic (conges tive) heart failure ALICIA PEDROZA NDJENISEN 06/21 [facility] NQHP OL DIG ASSMT&MGMT 11-20 [id number] [id number] 7 Diagnos is: ICD-10- CM Z51.81 Encount er for therape utic drug level monitor chandra LE CH RISTOPHER D [facility] [facility] [place] [place] 40 MIN [id number] Diagnos is: ICD-10- CM I25.10 Athscl heart disease of [place] coronar y artery w/o ang pctrs OU,JIAFU 07/03 [facility] Outpatient Encounter [id number] 07/15 [facility] Outpatient Encounter [id number] Diagnos is: ICD-10- CM I25.10 Athscl heart disease of [place] coronar y artery w/o ang pctrs OU,JIAFU 07/15 [facility] PH1 ASSMT&MGMT NQHP 11-20 [id number] Diagnos is: ICD-10- CM I10 Essenti al (primar y) hyperte ISMAEL PandaLL 07/15 [facility] Outpatient Encounter [id number] EVELYN CARLIN 07/23 [facility] OFFICE O/P EST HI 40 MIN [id number] Diagnos is: ICD-10- CM J44.9 Chronic obstruc tive pulmona ry disease , unspeci fiNIKO Roth 07/23 [facility] Outpatient Encounter [id number] Diagnos is: ICD-10- CM I25.10 Athscl heart disease of [place] coron[place] y artery w/o ang pctrs OU,JIAFU 07/23 [facility] Outpatient Encounter [id number] 07/29 [facility] N [facility] Outpatient Encounter [id number] 07/30 [facility] Outpatient Encounter [id number] 07/30 [facility] Outpatient Encounter [id number] YOVANYALICIA NENA 07/31 [facility] OFF/OP CNSLTJ NEW/EST LOW 30 [id number] Diagnos is: ICD-10- CM J44.9 Chronic obstruc tive pulmona ry disease , unspeci fied [place] WETZEL 08/05 [facility] Outpatient Encounter [id number] Diagnos is: ICD-10- CM J44.9 Chronic obstruc tive pulmona ry disease , unspeci fied SP CORONA 08/06 [facility] Outpatient Encounter [id number] 08/06 [facility] Outpatient Encounter [id number] YOVANYALICIA NENA 08/13 [facility] OFFICE O/P EST LOW 20 MIN [id number] Diagnos is: ICD-10- CM I10 Essenti al (primar y) hyperte nsion DAVID,Jeronimo HARO L 08/14 [facility] Outpatient Encounter [id number] Diagnos is: ICD-10- CM I25.10 Athscl heart disease of [place] coron[place] y artery w/o ang pctrs OU,JIAFU 08/15 [facility] SELF CARE MNGMENT TRAINING [id number] Diagnos is: ICD-10- CM J44.9 Chronic obstruc tive pulmona ry disease , unspeci fied JAYASHREE TODD 08/15 [facility] SELF CARE MNGMENT TRAINING [id number] Diagnos is: ICD-10- CM J44.89 Other specifi ed chronic obstruc tive pulmona ry disease JAYASHREE TODD 08/15 [facility] PHY/QHP OP PULM RHB W/O MNTR [id number] Diagnos is: ICD-10- CM J44.9 Chronic obstruc tive pulmona ry disease , unspeci fied SP CORONA E 08/15 [facility] EDU&TRN PT SLF-MGMT NQHP 2-4 [id number] Diagnos is: ICD-10- CM J44.89 Other specifi ed chronic obstruc tive pulmona ry disease CHEYANNE JORDAN MELANIE 08/15 [facility] PHY/QHP OP PULM RHB W/O MNTR [id number] Diagnos is: ICD-10- CM I25.10 Athscl heart disease of [place] coron[place] y artery w/o ang cassandra QUEEN,THE QI M 08/20 [facility] THERAPEUTI C PROCEDURES [id number] Diagnos is: ICD-10- CM J44.89 Other specifi ed chronic obstruc tive pulmona ry disease ADDIE ROWLEYA 08/20 [facility] Outpatient Encounter [id number] Diagnos is: ICD-10- CM J44.9 Chronic obstruc tive pulmona ry disease , unspeci olu QUEEN,THE QI 08/20 [facility] Outpatient Encounter [id number] 08/21 [facility] THERAPEUTI C EXERCISES [id number] Diagnos is: ICD-10- CM J44.89 Other specifi ed chronic obstruc tive pulmona ry disease JAYASHREE TODD M 08/22 [facility] PHY/QHP OP PULM RHB W/O MNTR [id number] Diagnos is: ICD-10- CM J44.9 Chronic obstruc tive pulmona ry disease , unspeci olu QUEEN,THE QI M 08/22 [facility] PSYCHOTHER APY [id number] Diagnos is: ICD-10- CM J44.9 Chronic obstruc tive pulmona ry disease , unspeci fied ANNELISE ALFREDO 08/22 [facility] PHY/QHP OP PULM RHB W/O MNTR [id number] Diagnos is: ICD-10- CM J44.9 Chronic obstruc tive pulmona ry disease , unspeci fied LUCIO QUEEN M 08/27 [facility] THERAPEUTI C EXERCISES [id number] Diagnos is: ICD-10- CM J44.89 Other specifi ed chronic obstruc tive pulmona ry disease ADDIE ROWLEY 08/27 [facility] PHY/QHP OP PULM RHB W/O MNTR [id number] Diagnos is: ICD-10- CM J44.9 Chronic obstruc tive pulmona ry disease , unspeci fied SP CORONA E 08/29 [facility] THERAPEUTI C PROCEDURES [id number] Diagnos is: ICD-10- CM J44.89 Other specifi ed chronic obstruc tive pulmona ry disease JAYASHREE TODD 08/29 [facility] EDU&TRN PT SLF-MGMT NQHP 2-4 [id number] Diagnos is: ICD-10- CM J44.89 Other specifi ed chronic obstruc tive pulmona ry disease CHEYANNE JORDAN 08/29 [facility] Social History Combined list of available smoking, tobacco, and other social history from Department of Defense and Veterans Affairs facilities. Social History Type Response Date Comment Sourc e Tobacco smoking status NHIS VA-TOBACCO USE FORMER CIGARETTES 04/26/2024 [facility] History of tobacco use VA-TOBACCO NEVER USED OTHER TYPE 04/26/2024 [facility] History of tobacco use VA-TOBACCO QUIT 15 YRS OR MORE 07/28/2023 [facility] History of tobacco use CA-TOBACCO USER EVERY DAY 07/29/2022 [facility] Plan of Care List of future care activities from Department of [facility] Affairs facilities. Additional future care activities may be listed in the Assessment and Plan section. Date/Time Care Activity Care Activity Detail Facili ty 09/03/2024 AMBULATORY - REHAB MEDICINE AMBULATORY - REHAB MEDICINE [facility]
--- NOTE | 2024-09-01 14:58 | ED_ITS ---
HPI - Chest Pain General Chief Complaint: Chest Pain <Torie Puckett PA-C - Last Filed: 09/01/24 19:30> Stated Complaint: CPr <TAYLOR Loyd Last Filed: 09/01/24 19:30> Time Seen by Provider: 09/01/24 14:01 <Torie Puckett PA-C - Last Filed: 09/01/24 19:30> Source: patient and old records reviewed <Torie Puckett PA-C - Last Filed: 09/01/24 19:30> Mode of arrival: ambulatory <TAYLOR Loyd Last Filed: 09/01/24 19:30> Limitations: no limitations <Torie Puckett PA-C - Last Filed: 09/01/24 19:30> History of Present Illness HPI narrative: Patient is a 74-year-old male, with PMH of CAD, COPD on chronic home O2, who presents the ED with report of chest pain. Patient reports he was sitting on his couch watching TV around noon today when he began having midsternal and left-sided chest discomfort, radiating into his left arm and up to his jaw, through to his shoulder blades. He states he became very short of breath and broke out into a sweat at that time. Prompted here for further evaluation. Denies current chest pain. Patient states this episode of chest pain felt similar to what he experienced in June when he underwent cardiac catheterization and had 2 stents placed (distal RCA, mid LAD per records). He notes there was another area of blockage that was not amenable to stenting and they advised they would continue to monitor (ostium of the rPDA has 50-60% stenosis with FAVIAN 3 flow - per records). Cath was performed by Dr. González dominique. Patient follows with Cardiology at the [facility]. He is on aspirin and Brilinta. Deoes report recent cough more than usual, denies recent fevers, pain or swelling in legs. <TAYLOR Loyd Last Filed: 09/01/24 19:30> Related Data Home Medications: Home Medications ?Medication ?Instructions ?Recorded ?Confirmed ?Last Taken ?Type albuterol sulfate 90 mcg/actuation 2 puff inhalation Q4-5H PRN Dyspnea 06/27/22 06/16/24 Unknown History aerosol inhaler aspirin 81 mg tablet,delayed 81 mg PO QPM 06/27/22 06/16/24 06/16/24 History release cetirizine 10 mg capsule 10 mg PO DAILY PRN Congestion 06/27/22 06/16/24 06/15/24 History fluticasone 250 mcg-salmeterol 50 1 inh inhalation BID 06/27/22 06/16/24 06/15/24 History mcg/dose blistr powdr for inhalation (Wixela Inhub) lisinopril 20 1 tablet PO QAM 06/27/22 06/16/24 Unknown History mg-hydrochlorothiazide 12.5 mg tablet pantoprazole 40 mg tablet,delayed 40 mg PO QAM 06/27/22 06/16/24 06/15/24 History release azelastine 137 mcg (0.1 %) nasal 1 spray intranasal Q12H 06/16/24 06/16/24 06/15/24 History spray cholecalciferol (vitamin D3) 25 5,000 unit PO DAILY 06/16/24 06/16/24 06/15/24 History mcg (1,000 unit) tablet (Vitamin D3) dorzolamide 22.3 mg-timolol 6.8 1 drp EACH EYE Q12H 06/16/24 06/16/24 06/15/24 History mg/mL eye drops empagliflozin 10 mg tablet 10 mg PO DAILY 06/16/24 06/16/24 06/15/24 History (Jardiance) furosemide 40 mg tablet 40 mg PO DAILY 06/16/24 06/16/24 06/15/24 History latanoprost 0.005 % eye drops 1 drp EACH EYE QPM 06/16/24 06/16/24 06/15/24 History rosuvastatin 40 mg tablet 40 mg PO DAILY 06/16/24 06/16/24 06/15/24 History tiotropium bromide 2.5 2 inh inhalation DAILY 06/16/24 06/16/24 06/15/24 History mcg/actuation mist for inhalation (Spiriva Respimat) <Torie Puckett PA-C - Last Filed: 09/01/24 19:30> Allergies/Adverse Reactions: Allergies Allergy/AdvReac Type Severity Reaction Status Date / Time No Known Allergies Allergy Verified 09/01/24 12:56 <Torie Puckett PA-C - Last Filed: 09/01/24 19:30> Review of Systems 2 Review of Systems: All systems reviewed & are unremarkable except as noted in HPI. <Torie Puckett PA-C - Last Filed: 09/01/24 19:30> All systems reviewed & are unremarkable except as noted in HPI and below < Torie Puckett PA-C - Last Filed: 09/01/24 19:30> [facility] Past Medical History Medical History: Medical History COPD (chronic obstructive pulmonary disease) Hyperlipidemia HTN (hypertension) <Torie Puckett PA-C - Last Filed: 09/01/24 19:30> Surgical History Surgical History: Surgical History H/O carotid endarterectomy <Torie Puckett PA-C - Last Filed: 09/01/24 19:30> Family History Family History: Family History Father COPD (chronic obstructive pulmonary disease) <Torie Puckett PA-C - Last Filed: 09/01/24 19:30> Social History Social History: Social History Smoking packs per day: 0.5 Smoking cigarettes per day: 10.0 Years smoked: 55 Smoking pack-years: 27.50 Smoking status: Former smoker Tobacco type: cigarettes Additional smoking assessment comments: Quit 1.5 years ago Alcohol intake: never Alcohol use details: QUIT 2018, [employer] Substance use: never Substance use type: does not use Do You Feel Safe in your Home?: Yes Lack of Transportation: No Lack of Food: Never True Current Housing: I Have Housing Concerned About Future Housing: No Difficulty Paying Gas/Electric Bills: No Difficulty Paying for Meds: No Currently Unemployed: No Education: High School Diploma/GED Difficulty w/ Childcare or Family Care: No Living arrangements: alone Spiritual care concerns: No <Torie Puckett PA-C - Last Filed: 09/01/24 19:30> Exam 2 Narrative: GENERAL: Elderly, well appearing, well-nourished, non-toxic, in no acute distress. HEAD: Normocephalic, atraumatic. RESPIRATORY: Airway patent, respirations nonlabored. Clear to auscultation bilaterally, no rales, rhonchi, wheezing. On home O2. No distress. No focal lung sounds. CARDIOVASCULAR: Regular rate and rhythm without murmurs, rubs, or gallops. ABDOMINAL: Soft, nontender, nondistended. Normoactive BS. MUSCULOSKELETAL: Moves all extremities. No gross deformities. No peripheral edema. No calf tenderness. SKIN: Warm, dry, normal color. NEURO: A&O X3. Speech clear. Cranial nerves II-XII grossly intact. Steady gait. No ataxic movements. PSYCHIATRIC: Appropriate mood and affect. Normal interaction. <Torie Puckett PA-C - Last Filed: 09/01/24 19:30> Course TAR POT WORKER/PA Physician Supervision I agree with midlevel documentation; I performed the medical decision making component of this evaluation. I had independent [id number] time with the patient and performed my own independent evaluation and assessment. patient previously had 2 stents placed at this facility recently, [facility] He does have an elevated troponin here, currently on nasal cannula. Doing well on reassessment with stable vital signs. Patient will be admitted to a IMU bed at this time. Hospitalist in agreement. Please see dictation by midlevel provider for details of care. < Trevor Carlin MD - Last Filed: 09/01/24 19:11> Vital Signs Vital signs: Vital Signs Temperature 97.3 F L 09/01/24 12:57 Pulse Rate 61 09/01/24 12:57 Respiratory Rate 20 09/01/24 12:57 Blood Pressure 155/65 H 09/01/24 12:57 Pulse Oximetry 94 09/01/24 12:57 Oxygen Delivery Nasal Cannula 09/01/24 12:57 Oxygen Flow Rate 3 09/01/24 12:57 Temperature 97.3 F L 09/01/24 12:57 Pulse Rate 62 09/01/24 18:07 Respiratory Rate 16 09/01/24 18:07 Blood Pressure 128/64 09/01/24 18:07 Pulse Oximetry 97 09/01/24 18:07 Oxygen Delivery Nasal Cannula 09/01/24 13:56 Oxygen Flow Rate 2 09/01/24 13:56 <Torie Puckett PA-C - Last Filed: 09/01/24 19:30> Vital Signs Temperature 97.3 F L 09/01/24 12:57 Pulse Rate 61 09/01/24 12:57 Respiratory Rate 20 09/01/24 12:57 Blood Pressure 155/65 H 09/01/24 12:57 Pulse Oximetry 94 09/01/24 12:57 Oxygen Delivery Nasal Cannula 09/01/24 12:57 Oxygen Flow Rate 3 09/01/24 12:57 Temperature 97.3 F L 09/01/24 12:57 Pulse Rate 62 09/01/24 18:07 Respiratory Rate 16 09/01/24 18:07 Blood Pressure 128/64 09/01/24 18:07 Pulse Oximetry 97 09/01/24 18:07 Oxygen Delivery Nasal Cannula 09/01/24 13:56 Oxygen Flow Rate 2 09/01/24 13:56 <Trevor Carlin MD - Last Filed: 09/01/24 19:11> MDM - Chest Pain MDM Narrative Medical decision making narrative: Patient presented to ED with episode of chest pain that began around noon today. Recent NSTEMI in June with 2 stents placed. Was also found to have stenosis of another artery which was decided for medical management at that time. Vital signs are stable upon arrival. Patient chronically wears home O2. No hypoxia on home oxygen currently. Denies current chest pain upon my evaluation. EKG with some nonspecific ST changes. No acute STEMI. Very mild ST depression and lateral leads, particularly V5 and V6. Baseline troponin 0.012. Basic laboratory studies are unremarkable. chest x-ray with chronic lung findings, no acute findings. D-dimer marginally elevated to 0.69. CTA of chest was obtained and without evidence of PE. Does show possible bibasilar consolidation, infection versus aspiration. Small bilateral pleural effusions. Moderate esophagitis. Patient has had recent cough, but denies fevers. No leukocytosis. Less suspicious for infectious etiology. Viral swabs are negative. 3 hour troponin resulted elevated to 0.099. Repeat EKG does not show any significant interval changes. No STEMI. He is denying any ongoing chest pain. He will be admitted for further evaluation. I discussed case with Alyssa EGAN hospitalist accepted patient for admission. Discussed case with Dr. Harris, cardiology, advised to give dose of Lovenox now, keep NPO after midnight for likely repeat catheterization tomorrow. Patient is in agreement with plan and need for admission. Advised to notify staff if he develops recurrent chest pain. <Torie Puckett PA-C - Last Filed: 09/01/24 19:30> Patient presented to ED with episode of chest pain that began around noon today. Recent NSTEMI in June with 2 stents placed. Vital signs are stable upon arrival. Patient chronically wears home O2. No hypoxia on home oxygen. Denies current chest pain upon my evaluation. EKG with some nonspecific ST changes. No acute STEMI. No significant ST depression. Baseline troponin 0.012. Basic laboratory studies are unremarkable. chest x-ray with chronic lung findings, no acute findings. D-dimer marginally elevated to 0.69. <Trevor Carlin MD - Last Filed: 09/01/24 19:11> Medical Records Data Attestation: I reviewed the patient's medical records. <Torie Puckett PA-C - Last Filed: 09/01/24 19:30> Lab Data Attestation: I reviewed the patient's lab results. <Torie Puckett PA-C - Last Filed: 09/01/24 19:30> Result diagrams: 09/01/24 13:11 09/01/24 13:11 <Torie Puckett PA-C - Last Filed: 09/01/24 19:30> Labs: Lab Results 09/01/24 09/01/24 09/01/24 Range/Units 13:11 15:49 17:06 WBC 8.3 (4.5-10.0) K/mm3 RBC 4.87 (4.6-6.20) M/mm3 Hgb 14.4 (14.0-18.0) g/dL Hct 45.1 (42.0-52.0) % MCV 92.6 (80-100) fl MCH 29.6 (26-34) pg MCHC 31.9 L (32-36) g/dl RDW 14.6 H (11.5-14.5) % Plt Count 330 D (150-375) k/mm3 MPV 9.4 (7.4-10.4) fl Immature Gran % (Auto) 0.4 (0-0.5) % Neut % (Auto) 54.4 (45.5-73.1) % Lymph % (Auto) 19.4 (18.3-44.2) % Collier % (Auto) 5.4 (2.6-8.5) % Eos % (Auto) 19.3 H (0-4.4) % Baso % (Auto) 1.1 (0.2-1.2) % Lymph # (Auto) 1.61 (0.9-3.2) K/mm3 [place]lier # (Auto) 0.5 (0.1-0.6) K/mm3 Eos # (Auto) 1.6 H (0-0.3) K/mm3 Baso # (Auto) 0.1 (0.0-0.1) K/mm3 Abs Immat Gran (auto) 0.03 (0.00-0.031) K/mm3 Absolute Neuts (auto) 4.5 (1.3-6.7) K/mm3 Absolute Nucleated RBC 0.000 (0.0-0.012) K/mm3 Nucleated RBC % 0.0 (0.0-0.2) % PT 14.6 (11.1-14.7) Seconds INR 1.1 APTT 28.4 (22.3-36.8) Seconds D-Dimer 0.69 H (<0.48) ug/mL Sodium 139 (137-145) mmol/L Potassium 4.2 (3.4-5.0) mmol/L Chloride 99 (98-107) mmol/L Carbon Dioxide 32 H (22-30) mmol/L Anion Gap 8 (4-12) mmol/L BUN 24 H D (9-20) mg/dL Creatinine 0.93 (0.7-1.3) mg/dL Estim Creat Clear Calc 65 ml/min Estimated GFR > 60 (59 - ) Glucose 125 H (65-110) mg/dL Calcium 9.3 (8.4-10.2) mg/dL Total Bilirubin 0.7 (0.2-1.3) mg/dL AST 28 (17-59) U/L ALT 23 (6-50) U/L Alkaline Phosphatase 88 (38-126) U/L Troponin I 0.012 0.099 H* D (0.000-0.034) ng/mL Total Protein 9.0 H (6.3-8.2) g/dL Albumin 4.5 (3.5-5.1) g/dL Lipase 167 (23-300) U/L Influenza A (RT-PCR) Negative (Negative) Influenza B (RT-PCR) Negative (Negative) RSV (RT-PCR) Negative (Negative) SARS-CoV-2 RNA (RT-PCR) Negative (Negative) <Torie Puckett PA-C - Last Filed: 09/01/24 19:30> Lab Results 09/01/24 09/01/24 09/01/24 Range/Units 13:11 15:49 17:06 WBC 8.3 (4.5-10.0) K/mm3 RBC 4.87 (4.6-6.20) M/mm3 Hgb 14.4 (14.0-18.0) g/dL Hct 45.1 (42.0-52.0) % MCV 92.6 (80-100) fl MCH 29.6 (26-34) pg MCHC 31.9 L (32-36) g/dl RDW 14.6 H (11.5-14.5) % Plt Count 330 D (150-375) k/mm3 MPV 9.4 (7.4-10.4) fl Immature Gran % (Auto) 0.4 (0-0.5) % Neut % (Auto) 54.4 (45.5-73.1) % Lymph % (Auto) 19.4 (18.3-44.2) % Collier % (Auto) 5.4 (2.6-8.5) % Eos % (Auto) 19.3 H (0-4.4) % Baso % (Auto) 1.1 (0.2-1.2) % Lymph # (Auto) 1.61 (0.9-3.2) K/mm3 [place]lier # (Auto) 0.5 (0.1-0.6) K/mm3 Eos # (Auto) 1.6 H (0-0.3) K/mm3 Baso # (Auto) 0.1 (0.0-0.1) K/mm3 Abs Immat Gran (auto) 0.03 (0.00-0.031) K/mm3 Absolute Neuts (auto) 4.5 (1.3-6.7) K/mm3 Absolute Nucleated RBC 0.000 (0.0-0.012) K/mm3 Nucleated RBC % 0.0 (0.0-0.2) % PT 14.6 (11.1-14.7) Seconds INR 1.1 APTT 28.4 (22.3-36.8) Seconds D-Dimer 0.69 H (<0.48) ug/mL Sodium 139 (137-145) mmol/L Potassium 4.2 (3.4-5.0) mmol/L Chloride 99 (98-107) mmol/L Carbon Dioxide 32 H (22-30) mmol/L Anion Gap 8 (4-12) mmol/L BUN 24 H D (9-20) mg/dL Creatinine 0.93 (0.7-1.3) mg/dL Estim Creat Clear Calc 65 ml/min Estimated GFR > 60 (59 - ) Glucose 125 H (65-110) mg/dL Calcium 9.3 (8.4-10.2) mg/dL Total Bilirubin 0.7 (0.2-1.3) mg/dL AST 28 (17-59) U/L ALT 23 (6-50) U/L Alkaline Phosphatase 88 (38-126) U/L Troponin I 0.012 0.099 H* D (0.000-0.034) ng/mL Total Protein 9.0 H (6.3-8.2) g/dL Albumin 4.5 (3.5-5.1) g/dL Lipase 167 (23-300) U/L Influenza A (RT-PCR) Negative (Negative) Influenza B (RT-PCR) Negative (Negative) RSV (RT-PCR) Negative (Negative) SARS-CoV-2 RNA (RT-PCR) Negative (Negative) <Trevor Carlin MD - Last Filed: 09/01/24 19:11> Imaging Data Attestation: I personally reviewed and interpreted this imaging study as follows: < Torie Puckett PA-C - Last Filed: 09/01/24 19:30> Radiologist's impression: ITS Impressions Chest X-Ray 09/01/24 14:04 IMPRESSION: No acute cardiopulmonary process. Chronic interstitial lung disease, overlying emphysematous change. Chest CTA 09/01/24 16:26 IMPRESSION: No CT evidence of acute pulmonary embolus. Subsegmental bibasilar consolidation may represent infection/aspiration. Small bilateral pleural effusions. The right pleural fluid is hyperdense and there is anterior right pleural thickening versus loculated fluid. Mediastinal lymphadenopathy. Moderate esophagitis. <Torie Puckett PA-C - Last Filed: 09/01/24 19:30> ECG Data EKG #1: Attestation: I personally reviewed and interpreted this ECG as follows: <Torie Puckett PA-C - Last Filed: 09/01/24 19:30> ECG completion date: 09/01/24 <Torie Puckett PA-C - Last Filed: 09/01/24 19:30> ECG completion time: 13:05 <Torie Puckett PA-C - Last Filed: 09/01/24 19:30> EKG Interpretation: bradycardia (56), sinus rhythm, PVCs and non-specific ST changes < Torie Puckett PA-C - Last Filed: 09/01/24 19:30> Discharge Plan Discharge Clinical Impression: Elevated troponin Chest pain Qualifiers: Chest pain type: unspecified Qualified Code(s): R07.9 - Chest pain, unspecified CAD (coronary artery disease) Qualifiers: Coronary Disease-Associated Artery/Lesion type: unspecified vessel or lesion type [place] vs. transplanted heart: [place] heart Associated angina: unspecified whether angina present Qualified Code(s): I25.10 - Atherosclerotic heart disease of [place] coronary artery without angina pectoris <Torie Puckett PA-C - Last Filed: 09/01/24 19:30> Patient Disposition: Still a Patient <Torie Puckett PA-C - Last Filed: 09/01/24 19:30> Condition: Stable <Torie Puckett PA-C - Last Filed: 09/01/24 19:30> Time of Disposition: 19:11 <Torie Puckett PA-C - Last Filed: 09/01/24 19:30> 19:11 <Trevor Carlin MD - Last Filed: 09/01/24 19:11>
[2024-09-01 15:38] LABS: D Dimer 0.69 ug/mL (<0.48)
[2024-09-01 16:20] LABS: Troponin I 0.099 ng/mL (0.000-0.034)
--- NOTE | 2024-09-01 17:00 | ECG_ITS ---
Test Date: 2024-09-01 17:06:24 Measurements Intervals [place] Rate: 64 P: 94 CT: 176 QRS: 32 QRSD: 108 T: -36 QT: 432 QTc: 447 Interpretive Statements SINUS RHYTHM WITH MARKED SINUS ARRHYTHMIA POSSIBLE INFERIOR MYOCARDIAL INFARCTION , OF INDETERMINATE AGE [30 ms Q WAVE IN II/aVF] ABNORMAL ECG Compared to ECG 09/01/2024 13:05:21 Sinus bradycardia no longer present Myocardial infarct finding still present Electronically Signed On 09-02-2024 06:49:26 CDT by Carson Harris M.D.
[2024-09-01] MEDS: IPRATROPIUM 0.5 MG/ALBUTEROL SULFATE 2.5 MG AMPUL.NEB 3 ML INHALATION (17:17)
--- NOTE | 2024-09-01 17:20 | P.HP_ITS ---
H&P: HPI History of Present Illness Date/Time: 09/01/24 17:20 Chief Complaint: Chest pain. Narrative: This is a pleasant 74-year-old male with history of coronary artery disease with stents to the distal RCA into the RPL branch and mid LAD on 06/16/2024, hypertension, dyslipidemia, carotid artery disease status post right carotid endarterectomy, chronic hypoxic respiratory failure on 3 L home oxygen, chronic obstructive pulmonary disease, obstructive sleep apnea on CPAP, gastroesophageal reflux disease, prediabetes, depression, anxiety, and glaucoma who presented to the emergency department via EMS from home with complaints of chest pain. Approximately 2 hours prior to arrival he was sitting on the couch watching television when he developed sudden onset midsternal and left anterior chest pain radiating into the left arm, left jaw, and left scapula. He became sweaty and a bit short of breath with that as well. Initially he thought his symptoms were related to his GERD which can be severe at times and after belching it may have helped somewhat. He then tried to drink a soda to see if that would help further however the discomfort intensified and did not improve. He then decided to come in for evaluation as the symptoms are similar to those he had in June prior to his stents although to a lesser extent. He has been compliant with his medications and has not missed any doses of his Brilinta. He denies syncope, near syncope, fever, pleuritic pain, palpitations, orthopnea, paroxysmal nocturnal dyspnea, vomiting, lower extremity edema, and calf pain. He does mention increasing cough and shortness of breath from baseline over the past week or so but denies sinus congestion, sore throat, and sick contacts. He also reports intermittent dysphagia, frequent heartburn, and he states that he would not be surprised if he aspirated on occasion due to the symptoms. In the ED: Vital signs were stable on arrival. Initial troponin was within normal limits however his 3 and 6 hour troponins have trended up: 0.012 --> 0.099 --> 0.734. RSV, influenza, and COVID were negative. Chest CTA was negative for PE but did show subsegmental bibasilar consolidation which may represent infection/aspiration, small bilateral effusions, moderate esophagitis. He was given aspirin 324 mg, enoxaparin 90 mg subQ, and a DuoNeb. He is being admitted to the IMU in this setting for close monitoring and Cardiology consultation. Review of Systems Review of Systems: 12 systems were reviewed and are negativ e except for as per HPI. [facility] Past Medical History Medical History (Updated 09/01/24 @ 21:43 by Alyssa Atkins PA-C) Prediabetes Depression with anxiety Glaucoma Gastroesophageal reflux disease Obstructive sleep apnea on CPAP Chronic respiratory failure with hypoxia, on home oxygen therapy Chronic obstructive pulmonary disease Hypertension Hyperlipidemia Surgical History Surgical History (Updated 09/01/24 @ 21:38 by Alyssa Atkins PA-C) History of right-sided carotid endarterectomy (2011) History of coronary artery stent placement (06/2024) stents to the distal RCA and LAD History of cardiac catheterization Family History Family History Father COPD (chronic obstructive pulmonary disease) Sibling Macular degeneration Social History Social History (Updated 09/01/24 @ 21:39 by Alyssa Atkins PA-C) Social History: Surrogate medical decision maker: Sejal Fierro, sibling ([phone]). Code status: Full code. 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 Substance use: never Substance use type: does not use Do You Feel Safe in your Home?: Yes Lack of Transportation: No Lack of Food: Never True Current Housing: I Have Housing Concerned About Future Housing: No Difficulty Paying Gas/Electric Bills: No Difficulty Paying for Meds: No Currently Unemployed: No Education: High School Diploma/GED Difficulty w/ Childcare or Family Care: No Living arrangements: alone Spiritual care concerns: No Meds Home Medications and Allergies Home Medications ?Medication ?Instructions ?Recorded ?Confirmed ?Type albuterol sulfate 90 mcg/actuation 2 puff inhalation Q4-5H PRN Dyspnea 06/27/22 09/01/24 History aerosol inhaler aspirin 81 mg tablet,delayed 81 mg PO QPM 06/27/22 09/01/24 History release cetirizine 10 mg capsule 10 mg PO DAILY PRN Congestion 06/27/22 09/01/24 History fluticasone 250 mcg-salmeterol 50 1 inh inhalation BID 06/27/22 09/01/24 History mcg/dose blistr powdr for inhalation (Wixela Inhub) pantoprazole 40 mg tablet,delayed 40 mg PO QAM 06/27/22 09/01/24 History release cholecalciferol (vitamin D3) 25 50 mcg PO DAILY 06/16/24 09/01/24 History mcg (1,000 unit) tablet (Vitamin D3) empagliflozin 10 mg tablet 12.5 mg PO DAILY 06/16/24 09/01/24 History (Jardiance) furosemide 40 mg tablet 40 mg PO DAILY 06/16/24 09/01/24 History latanoprost 0.005 % eye drops 1 drp EACH EYE QPM 06/16/24 09/01/24 History rosuvastatin 40 mg tablet 20 mg PO DAILY 06/16/24 09/01/24 History tiotropium bromide 2.5 2 inh inhalation DAILY 06/16/24 09/01/24 History mcg/actuation mist for inhalation (Spiriva Respimat) ticagrelor 90 mg tablet (Brilinta) 90 mg PO Q12HR 30 days #60 tabs 06/17/24 09/01/24 Rx carvedilol 6.25 mg tablet (Coreg) 6.25 mg PO Q12HR #60 tabs 06/18/24 09/01/24 Rx losartan 50 mg tablet 50 mg PO DAILY #30 tabs 06/18/24 09/01/24 Rx polyethylene glycol 3350 17 17 g PO DAILY PRN constipation 09/01/24 09/01/24 History gram/dose oral powder (Miralax) Allergies Allergy/AdvReac Type Severity Reaction Status Date / Time No Known Allergies Allergy Verified 09/01/24 21:00 Vital Signs Vital Signs - 24 hr 09/01/24 12:57 09/01/24 13:56 09/01/24 15:11 Temperature 97.3 F L Pulse Rate 61 50 L Respiratory Rate 20 17 Blood Pressure 155/65 H 114/57 L Pulse Oximetry 94 96 96 Oxygen Delivery Nasal Cannula Nasal Cannula Oxygen Flow Rate 3 2 Exam Narrative: General: Well-developed, nontoxic-appearing gentleman sitting up in bed in no acute distress. Weight: 91.6 kg. BMI: 27.4. HEENT: PERRL, EOMI. Sclera anicteric. Oral mucosa moist. Oropharynx clear. Neck: Supple. No JVD. Respiratory: Respirations are nonlabored he is speaking full sentences. He is at his baseline oxygen requirement of 3 L. Decreased air movement throughout all lung piper with scattered crackles and rare wheezing. Cardiovascular: Regular rate and rhythm with S1-S2. Gastrointestinal: Abdomen is soft, nontender, and nondistended with positive bowel sounds. Skin: Warm and dry. No rash or lesions on limited exam. Extremities: No cyanosis, clubbing, or edema. Radial and pedal pulses intact. Neurological: Alert. Cranial nerves 2-12 are grossly intact. No gross focal deficits to casual conversation. Psychiatric: Pleasant and cooperative with normal mood and affect. Judgment and insight intact. H&P: Results Labs Labs: Short CBC 09/01/24 Range/Units 13:11 WBC 8.3 (4.5-10.0) K/mm3 Hgb 14.4 (14.0-18.0) g/dL Hct 45.1 (42.0-52.0) % Plt Count 330 D (150-375) k/mm3 BMP 09/01/24 13:11 Sodium 139 Potassium 4.2 Chloride 99 Carbon Dioxide 32 H BUN 24 H D Creatinine 0.93 Glucose 125 H Calcium 9.3 Cardiac Enzymes 09/01/24 09/01/24 Range/Units 13:11 15:49 Troponin I 0.012 0.099 H* D (0.000-0.034) ng/mL Liver Function 09/01/24 Range/Units 13:11 Total Bilirubin 0.7 (0.2-1.3) mg/dL AST 28 (17-59) U/L ALT 23 (6-50) U/L Alkaline Phosphatase 88 (38-126) U/L Albumin 4.5 (3.5-5.1) g/dL Impressions Chest X-Ray 09/01/24 14:04 IMPRESSION: No acute cardiopulmonary process. Chronic interstitial lung disease, overlying emphysematous change. Chest CTA 09/01/24 16:26 IMPRESSION: No CT evidence of acute pulmonary embolus. Subsegmental bibasilar consolidation may represent infection/aspiration. Small bilateral pleural effusions. The right pleural fluid is hyperdense and there is anterior right pleural thickening versus loculated fluid. Mediastinal lymphadenopathy. Moderate esophagitis. Assessment and Plan Assessment and plan (1) Non-ST elevation myocardial infarction (NSTEMI): Code(s): I21.4 - Non-ST elevation (NSTEMI) myocardial infarction Status: Acute (2) Esophagitis: Code(s): K20.90 - Esophagitis, unspecified without bleeding Status: Acute (3) Pneumonitis: Code(s): J98.4 - Other disorders of lung Status: Acute (4) Coronary artery disease: Code(s): I25.10 - Atherosclerotic heart disease of [place] coronary artery without angina pectoris Status: Acute (5) Hypertension: Code(s): I10 - Essential (primary) hypertension Status: Acute (6) Prediabetes: Code(s): R73.03 - Prediabetes Status: Acute (7) Chronic obstructive pulmonary disease: Code(s): J44.9 - Chronic obstructive pulmonary disease, unspecified Status: Acute (8) Obstructive sleep apnea on CPAP: Code(s): G47.33 - Obstructive sleep apnea (adult) (pediatric) Status: Acute Plan The patient presented to the emergency department for evaluation chest pain associated with shortness of breath and nausea as detailed in HPI. Labs, imaging, EKG, and all reports were personally reviewed. Initial troponin was within normal limits but it has trended upwards to a peak of 0.734 on 6 hour; EKG did not show any acute ST segment elevations. With his cardiac history, he was given aspirin 324 mg and enoxaparin 1 mg/kg, and he will be NPO after midnight for possible cataract catheterization tomorrow. Continue beta-kelsey, statin, and dual antiplatelet therapy. Additionally he complains of pretty severe GERD and chest CT shows findings of moderate esophagitis. The patient also reports intermittent dysphagia and there are findings of possible pneumonitis on imaging suggesting possible silent aspiration. As such we will consult GI as well for possible endoscopy. I do not think he has an active infection thus no indication for antibiotics. Pulmonary toilet. No findings to suggest acute COPD exacerbation. Blood pressures were reviewed and they have been stable. CPAP will be provided for the patient to use while hospitalized. His home medications will be reviewed and resumed as appropriate. Findings and treatment plan were discussed with the patient. Questions were solicited and answered to satisfaction. The patient's medical management will be taken over by the hospitalist team in a.m. Quality VTE Prophylaxis VTE prophylaxis: mechanical ordered If No VTE Prophylaxis Answer both mechanical and pharmacologic: Reason no pharmacologic proph: medical contraindication (patient on dual anti- platelet therapy, pharmacologic prophylaxis would put him at increased risk for bleeding) The patient has been admitted under observation status. Hospitalist [facility] Advance Care Plan I have confirmed that the patient's Advanced Care Plan is present, code status is documented, or surrogate decision maker is listed in patient medical record.: Yes Medication Reconciliation I have utilized all available resources to obtain, update and review the patients current medications (includes all prescriptions, OTC, herbals, cannabis, and nutritional supplements).: Yes
[2024-09-01 17:50] LABS: Influenza A QL RT-PCR Negative (Negative); Influenza B QL RT-PCR Negative (Negative); RSV RNA, RT-PCR Negative (Negative); SARS-CoV-2 RNA PCR Negative (Negative)
[2024-09-01] MEDS: ENOXAPARIN 100 MG/ML SYRINGE 90 MG SUB-Q (17:57)
--- NOTE | 2024-09-01 18:55 | ECG_ITS ---
Test Date: 2024-09-01 20:16:18 Measurements Intervals [place] Rate: 66 P: 85 NH: 167 QRS: 40 QRSD: 110 T: -19 QT: 409 QTc: 432 Interpretive Statements SINUS RHYTHM WITH MARKED SINUS ARRHYTHMIA POSSIBLE INFERIOR MYOCARDIAL INFARCTION , OF INDETERMINATE AGE [30 ms Q WAVE IN II/aVF] ABNORMAL ECG Compared to ECG 09/01/2024 17:06:24 No significant changes Electronically Signed On 09-02-2024 06:50:32 CDT by Carson Harris M.D.
--- NOTE | 2024-09-01 20:58 | PC.NURSE ---
PATIENT ARRIVED ON IMU, UNIT AT 2054.
[2024-09-01 21:00] LABS: Troponin I 0.734 ng/mL (0.000-0.034)
[2024-09-01] MEDS: TICAGRELOR 90 MG TABLET PO (23:06)
[2024-09-02] VITALS (42 sets, daily range): BP systolic 104–144; BP diastolic 49–86; PULSE 51–77; RESP 14–23; TEMP 36.3–36.7; O2SAT 91–99
--- NOTE | 2024-09-02 | ECHO_ITS ---
Patient Info Name: Mc Colon Age: 74 years : 1950 Gender: Male Ht: 72 in Wt: 200 lbs BSA: 2.16 m2 HR: 55 bpm BP: 116 / 68 mmHg Heart Rhythm: Sinus Rhythm Technical Quality: Fair Exam Date: 09/02/2024 8:26 AM Exam Location: Echo Lab Patient Status: Inpatient Admit Date: 09/02/2024 Staff Ordering Physician: Jose Claudio MD ([facility]) Dye Colorist Dyer: Elba Arana RDCS Attending Provider: Lasha Lin MD Exam Type: CA echo limited w contrast Study Info Indications R07.9 - Chest pain, unspecified Complete two-dimensional, color flow and Doppler transthoracic echocardiogram is performed with contrast to opacify the left ventricle and to improve the deliniation of the left ventricle endocardial borders. Contrast/Agitated Saline Contrast/Ag. Saline: Definity Amount: 3.00 ml Administered By: Elba Arana RDCS Existing IV Access: Yes IV Access Condition: patent with no signs of infiltration Summary 1. The left ventricle is normal in size and systolic function. The left ventricular ejection fraction is visually estimated to be 65-70%. There are no regional wall motion abnormalities. Left Ventricle The left ventricle is normal in size and systolic function. The left ventricular ejection fraction is visually estimated to be 65-70%. There are no regional wall motion abnormalities. Right Ventricle The right ventricle is normal in size and systolic function. Mitral Valve The mitral valve is heavily calcified but opens well. Ventricles Name Value Normal LV Fractional Shortening/Ejection Fraction 2D/MM LV Diastolic Volume (4C MOD) 55 ml LV EF (4C MOD) 72 % LV Diastolic Volume (2C MOD) 53 ml LV EF (2C MOD) 70 % LV Diastolic Volume (BP MOD) 54 ml 62-150 LV Diastolic Volume Index (BP MOD) 25 ml/m2 34-74 LV Systolic Volume (BP MOD) 16 ml 21-61 LV Systolic Volume Index (BP MOD) 8 ml/m2 11-31 LV EF (BP MOD) 69 % 52-72 LV Diastolic Length (4C) 7.4 cm LV Systolic Length (4C) 5.9 cm LV Stroke Volume (4C MOD) 39 ml Report Signatures
[2024-09-02 04:48] LABS: Hematocrit 44.1 % (42.0-52.0); Hemoglobin 13.7 g/dL (14.0-18.0); Mean Corpuscular HGB Conc 31.1 g/dl (32-36); Mean Corpuscular Hemoglobin 29.4 pg (26-34); Mean Corpuscular Volume 94.6 fl (80-100); Mean Platelet Volume 9.2 fl (7.4-10.4); Platelet Count Result 306 k/mm3 (150-375); Red Blood Count 4.66 M/mm3 (4.6-6.20); Red Cell Distribution Width 14.5 % (11.5-14.5); White Blood Count 7.9 K/mm3 (4.5-10.0)
[2024-09-02 05:03] LABS: Anion Gap 8 mmol/L (4-12); Blood Urea Nitrogen 23 mg/dL (9-20); Calcium 9.6 mg/dL (8.4-10.2); Carbon Dioxide 35 mmol/L (22-30); Chloride 99 mmol/L (98-107); Estimated CRCL calculation 59 ml/min; Estimated Glomerular Filt Rate > 60; Glucose 99 mg/dL (65-110); Magnesium 2.2 mg/dL (1.6-2.3); Potassium 4.5 mmol/L (3.4-5.0); Sodium 142 mmol/L (137-145)
[2024-09-02] MEDS: FLUTICASONE/SALMETEROL 115-21 MCG INHALER 1 PUFF 2 PUFF INHALATION ×2 (07:20→21:11)
[2024-09-02] MEDS: PERFLUTREN LIPID MICROSPHERES 1.5 ML VIAL DILUTED TO 10 ML TOTAL VOLUME IV PUSH (08:38)
[2024-09-02 09:22] LABS: Troponin I 0.554 ng/mL (0.000-0.034)
[2024-09-02] MEDS: CHOLECALCIFEROL 1,000 UNITS TABLET 2000 UNITS PO (09:37)
[2024-09-02] MEDS: ROSUVASTATIN 20 MG TABLET PO (09:37)
[2024-09-02] MEDS: guaiFENesin 12 HR 600 MG TABCR 1200 MG PO ×2 (09:37→20:05)
[2024-09-02] MEDS: LOSARTAN POTASSIUM 50 MG TABLET PO (09:37)
[2024-09-02] MEDS: PANTOPRAZOLE 40 MG TABLET PO ×2 (09:37→16:56)
[2024-09-02] MEDS: TICAGRELOR 90 MG TABLET PO ×2 (09:37→20:05)
[2024-09-02] MEDS: carvediloL 6.25 MG TABLET PO ×2 (09:38→20:05)
--- NOTE | 2024-09-02 10:01 | PM.IMPN ---
Progress Note: A&P Assessment and Plan (1) Non-ST elevation myocardial infarction (NSTEMI): Code(s): I21.4 - Non-ST elevation (NSTEMI) myocardial infarction Status: Acute (2) Esophagitis: Code(s): K20.90 - Esophagitis, unspecified without bleeding Status: Acute (3) Pneumonitis: Code(s): J98.4 - Other disorders of lung Status: Acute (4) Coronary artery disease: Code(s): I25.10 - Atherosclerotic heart disease of [place] coronary artery without angina pectoris Status: Acute (5) Hypertension: Code(s): I10 - Essential (primary) hypertension Status: Acute (6) Prediabetes: Code(s): R73.03 - Prediabetes Status: Acute (7) Chronic obstructive pulmonary disease: Code(s): J44.9 - Chronic obstructive pulmonary disease, unspecified Status: Acute (8) Obstructive sleep apnea on CPAP: Code(s): G47.33 - Obstructive sleep apnea (adult) (pediatric) Status: Acute Plan Non ST elevation [place] -Patient received Lovenox 90 mg subcutaneously yesterday night -Currently on aspirin, carvedilol and Brilinta -Patient recently had 2 stents placed distal RCA and mid LAD in June 2024. -Another area of blockage that was not amenable for stenting(ostium of the rPDA has 50-60% stenosis with FAVIAN 3 flow - per records). -follows up with [facility] receiver -Give sublingual nitro if needed -Echocardiogram pending -Reviewed EKG and CXR Hypertension Continue Coreg 6.25 mg b.i.d. p.o., losartan 50 mg daily p.o., hydrochlorothiazide 12. 5 mg daily p.o. 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 He was hospitalized at that time. TSH 0.194, T4 within normal limit Follow-up with PCP Esophagitis, unspecified without bleeding CTA Chest:No CT evidence of acute pulmonary embolus. Subsegmental bibasilar consolidation may represent infection/aspiration. Small bilateral pleural effusions. The right pleural fluid is hyperdense and there is anterior right pleural thickening versus loculated fluid. Mediastinal lymphadenopathy. Moderate esophagitis. On PPI GI consulted COPD Chronic Continue Incruse Ellipta Dysphagia Speech therapy evaluation pending Subjective Date/time seen: 09/02/24 10:01 Interval history: Interval history:74-year-old male with history of coronary artery disease with stents to the distal RCA into the RPL branch and mid LAD on 06/16/2024, hypertension, dyslipidemia, carotid artery disease status post right carotid endarterectomy, chronic hypoxic respiratory failure on 3 L home oxygen, chronic obstructive pulmonary disease, obstructive sleep apnea on CPAP, gastroesophageal reflux disease, prediabetes, depression, anxiety, and glaucoma who presented to the emergency department via EMS from home with complaints of chest pain. Patient reports he never missed a dose on Brilinta.Initial troponin was within normal limits however his 3 and 6 hour troponins have trended up: 0.012 --> 0.099 --> 0.734. RSV, influenza, and COVID were negative. Chest CTA was negative for PE but did show subsegmental bibasilar consolidation which may represent infection/aspiration, small bilateral effusions, moderate esophagitis. He was given aspirin 324 mg, enoxaparin 90 mg subQ, and a DuoNeb. He is being admitted to the IMU in this setting for close monitoring and Cardiology consultation. 09/02: Patient underwent cardiac catheterization today. As mentioned above patient underwent cardiac catheterization and had 2 stents placed distal RCA and mid LAD in June 2024. There is another area of blockage that was not amenable for stenting(ostium of the rPDA has 50-60% stenosis with FAVIAN 3 flow - per records). The catheterization was performed by Dr. Claudio and patient has primary Cardiology at [facility]. Pending evaluation for swallowing. Review of Systems Review of Systems: 12 systems were reviewed and are negative except for as per HPI. Exam Narrative: General: Well-developed, nontoxic-appearing gentleman sitting up in bed in no acute distress. Weight: 91.6 kg. BMI: 27.4. HEENT: PERRL, EOMI. Sclera anicteric. Oral mucosa moist. Oropharynx clear. Neck: Supple. No JVD. Respiratory: Respirations are nonlabored he is speaking full sentences. He is at his baseline oxygen requirement of 3 L. Decreased air movement throughout all lung piper with scattered crackles and rare wheezing. Cardiovascular: Regular rate and rhythm with S1-S2. Gastrointestinal: Abdomen is soft, nontender, and nondistended with positive bowel sounds. Skin: Warm and dry. No rash or lesions on limited exam. Extremities: No cyanosis, clubbing, or edema. Radial and pedal pulses intact. Neurological: Alert. Cranial nerves 2-12 are grossly intact. No gross focal deficits to casual conversation. Psychiatric: Pleasant and cooperative with normal mood and affect. Judgment and insight intact. Objective Data Vital Signs Vital Signs: Vital Signs - 24 hr 09/01/24 12:57 09/01/24 13:56 09/01/24 15:11 Temperature 97.3 F L Pulse Rate 61 50 L Respiratory Rate 20 17 Blood Pressure 155/65 H 114/57 L Pulse Oximetry 94 96 96 Oxygen Delivery Nasal Cannula Nasal Cannula Oxygen Flow Rate 3 2 09/01/24 16:00 09/01/24 17:18 09/01/24 17:31 Temperature Pulse Rate 58 L 61 66 Respiratory Rate 18 17 16 Blood Pressure 108/71 Pulse Oximetry 95 Oxygen Delivery Oxygen Flow Rate 09/01/24 17:59 09/01/24 18:07 09/01/24 20:08 Temperature Pulse Rate 59 L 62 74 Respiratory Rate 18 16 15 Blood Pressure 126/70 128/64 128/74 Pulse Oximetry 96 97 98 Oxygen Delivery Oxygen Flow Rate 09/01/24 20:51 09/01/24 20:51 09/01/24 22:00 Temperature 98.6 F Pulse Rate 72 68 Respiratory Rate 16 Blood Pressure 135/83 Pulse Oximetry 93 95 Oxygen Delivery Nasal Cannula Oxygen Flow Rate 2 09/01/24 23:10 09/01/24 23:53 09/02/24 00:00 Temperature 98.5 F Pulse Rate 49 L 67 57 L Respiratory Rate 16 Blood Pressure 121/60 Pulse Oximetry 94 Oxygen Delivery Oxygen Flow Rate 09/02/24 00:00 09/02/24 02:00 09/02/24 04:00 Temperature Pulse Rate 61 Respiratory Rate Blood Pressure Pulse Oximetry 97 98 Oxygen Delivery Nasal Cannula Nasal Cannula Oxygen Flow Rate 2 2 09/02/24 04:24 09/02/24 07:31 09/02/24 07:32 Temperature 97.7 F Pulse Rate 55 L 77 Respiratory Rate 16 20 Blood Pressure 116/68 Pulse Oximetry 96 95 Oxygen Delivery Nasal Cannula Oxygen Flow Rate 2 09/02/24 07:50 09/02/24 09:38 Temperature 97.4 F L Pulse Rate 63 61 Respiratory Rate 16 Blood Pressure 126/57 L Pulse Oximetry 94 Oxygen Delivery Oxygen Flow Rate Intake/Output Intake/Output: Intake & Output 08/30/24 08/31/24 09/01/24 09/02/24 23:59 23:59 23:59 23:59 Intake Total 240 Balance 240 Meds/Results Medications: Active Medications Generic Name Dose Route Start Last Admin Trade Name Freq PRN Reason Stop Dose Admin Acetaminophen 650 mg 09/01/24 21:51 Acetaminophen 325 Mg Tablet PO Q6H PRN Mild Pain (1-3) or Fever Albuterol 2 puff 09/01/24 21:45 Albuterol Sulfate (*Sp) Aerosol 1 Puff INHALATION Q4-6H PRN Dyspnea Aspirin 81 mg 09/02/24 18:00 Aspirin 81 Mg Enteric Tablet PO QPM [place] Calcium Carbonate 200 mg 09/01/24 21:51 Calcium Carbonate (Tums) 500 Mg (200 Mg Elemental) PO Q6H PRN Indigestion Carvedilol 6.25 mg 09/01/24 21:50 09/02/24 09:38 Carvedilol 6.25 Mg Tablet PO 6.25 mg Q12HR [place] Administration Dextrose 12.5 gm 09/01/24 17:20 Dextrose 50% 25 Gm/50 Ml Syringe IV PUSH PRN PRN Hypoglycemia Protocol Empagliflozin 12.5 mg 09/02/24 09:00 09/02/24 09:40 Empagliflozin 12.5 Mg Tablet PO Not Given DAILY [place] Furosemide 40 mg 09/02/24 09:00 09/02/24 09:40 Furosemide 40 Mg Tablet PO Not Given DAILY [place] Glucagon 1 mg 09/01/24 17:20 Glucagon For Inj 1 Mg Vial IM PRN PRN Hypoglycemia Protocol Glucose 15 gm 09/01/24 17:20 Glucose Oral Gel 15 Gm Of Glucse In 37.5 Gm Tube PO PRN PRN Hypoglycemia Protocol Guaifenesin 1,200 mg 09/02/24 09:00 09/02/24 09:37 Guaifenesin 12 Hr 600 Mg Tabcr PO 1,200 mg Q12HR [place] Administration Dextrose 1,000 mls @ 100 mls/hr 09/01/24 17:20 Dextrose 5% 1,000 Ml IVPB PRN PRN Hypoglycemia Protocol Latanoprost 1 drop 09/02/24 18:00 Latanoprost 0.005% Op Soln 2.5 Ml Btl EACH EYE QPM [place] Loratadine 10 mg 09/01/24 21:50 Loratadine 10 Mg Tablet PO DAILY PRN Congestion Losartan Potassium 50 mg 09/02/24 09:00 09/02/24 09:37 Losartan Potassium 50 Mg Tablet PO 50 mg DAILY [place] Administration Nitroglycerin 0.4 mg 09/01/24 17:20 Nitroglycerin Sl 0.4 Mg Tablet SUBLINGUAL Q5MIN PRN Chest Pain Ondansetron HCl 4 mg 09/01/24 17:20 Ondansetron Inj 4 Mg/2 Ml Vial IV PUSH Q4H PRN Nausea Pantoprazole Sodium 40 mg 09/02/24 09:00 09/02/24 09:37 Pantoprazole 40 Mg Tablet PO 40 mg QAM [place] Administration Perflutren Lipid Microsphere 0 ml 09/01/24 19:59 Perflutren Lipid Microspheres 1.5 Ml Vial Diluted To 10 Ml Total Volume IV PUSH 09/04/24 20:00 ONCE PRN adequate visualization Protocol Polyethylene Glycol 17 gm 09/01/24 21:45 Polyethylene Glycol 3350 17 Gm Powd.Pack PO DAILY PRN constipation Rosuvastatin Calcium 20 mg 09/02/24 09:00 09/02/24 09:37 Rosuvastatin 20 Mg Tablet PO 20 mg DAILY [facility] Administration Fluticasone/Salmeterol 2 puff 09/02/24 08:00 09/02/24 07:20 Fluticasone/Salmeterol 115-21 Mcg Inhaler 1 Puff INHALATION 2 puff Q12HRT [place] Administration Ticagrelor 90 mg 09/01/24 21:50 09/02/24 09:37 Ticagrelor 90 Mg Tablet PO 90 mg Q12HR [place] Administration Umeclidinium [place] 2 puff 09/02/24 08:00 09/02/24 07:24 Umeclidinium [place] 62.5 Mcg Ellipta INHALATION Not Given DAILYRT [facility] Vitamin D 2,000 units 09/02/24 09:00 09/02/24 09:37 Cholecalciferol 1,000 Units Tablet PO 2,000 units DAILY [place] Administration Radiology Results: ITS Impressions Chest X-Ray 09/01/24 14:04 IMPRESSION: No acute cardiopulmonary process. Chronic interstitial lung disease, overlying emphysematous change. Chest CTA 09/01/24 16:26 IMPRESSION: No CT evidence of acute pulmonary embolus. Subsegmental bibasilar consolidation may represent infection/aspiration. Small bilateral pleural effusions. The right pleural fluid is hyperdense and there is anterior right pleural thickening versus loculated fluid. Mediastinal lymphadenopathy. Moderate esophagitis. Labs Labs: Laboratory Results - last 24 hr 09/01/24 09/01/24 09/01/24 13:11 15:49 17:06 WBC 8.3 RBC 4.87 Hgb 14.4 Hct 45.1 MCV 92.6 MCH 29.6 MCHC 31.9 L RDW 14.6 H Plt Count 330 D MPV 9.4 Immature Gran % (Auto) 0.4 Neut % (Auto) 54.4 Lymph % (Auto) 19.4 [place] % (Auto) 5.4 Eos % (Auto) 19.3 H Baso % (Auto) 1.1 Lymph # (Auto) 1.61 [place] # (Auto) 0.5 Eos # (Auto) 1.6 H Baso # (Auto) 0.1 Abs Immat Gran (auto) 0.03 Absolute Neuts (auto) 4.5 Absolute Nucleated RBC 0.000 Nucleated RBC % 0.0 PT 14.6 INR 1.1 APTT 28.4 D-Dimer 0.69 H Sodium 139 Potassium 4.2 Chloride 99 Carbon Dioxide 32 H Anion Gap 8 BUN 24 H D Creatinine 0.93 Estim Creat Clear Calc 65 Estimated GFR > 60 Glucose 125 H Calcium 9.3 Magnesium Total Bilirubin 0.7 AST 28 ALT 23 Alkaline Phosphatase 88 Troponin I 0.012 0.099 H* D Total Protein 9.0 H Albumin 4.5 Lipase 167 Influenza A (RT-PCR) Negative Influenza B (RT-PCR) Negative RSV (RT-PCR) Negative SARS-CoV-2 RNA (RT-PCR) Negative 09/01/24 09/02/24 09/02/24 20:27 04:01 08:53 WBC 7.9 RBC 4.66 Hgb 13.7 L Hct 44.1 MCV 94.6 MCH 29.4 MCHC 31.1 L RDW 14.5 Plt Count 306 MPV 9.2 Immature Gran % (Auto) Neut % (Auto) Lymph % (Auto) [place] % (Auto) Eos % (Auto) Baso % (Auto) Lymph # (Auto) [place] # (Auto) Eos # (Auto) Baso # (Auto) Abs Immat Gran (auto) Absolute Neuts (auto) Absolute Nucleated RBC Nucleated RBC % PT INR APTT D-Dimer Sodium 142 Potassium 4.5 Chloride 99 Carbon Dioxide 35 H Anion Gap 8 BUN 23 H Creatinine 1.03 Estim Creat Clear Calc 59 Estimated GFR > 60 Glucose 99 Calcium 9.6 Magnesium 2.2 Total Bilirubin AST ALT Alkaline Phosphatase Troponin I 0.734 H* D 0.554 H* Total Protein Albumin Lipase Influenza A (RT-PCR) Influenza B (RT-PCR) RSV (RT-PCR) SARS-CoV-2 RNA (RT-PCR) Hospitalist MIPS Advance Care Plan I have confirmed that the patient's Advanced Care Plan is present, code status is documented, or surrogate decision maker is listed in patient medical record.: Yes Medication Reconciliation I have utilized all available resources to obtain, update and review the patients current medications (includes all prescriptions, OTC, herbals, cannabis, and nutritional supplements).: Yes
--- NOTE | 2024-09-02 10:28 | WPDGICN ---
Assessment and Plan Assessment and plan (1) Dysphagia: Qualifiers: Dysphagia type: oropharyngeal phase Qualified Code(s): R13.12 - Dysphagia, oropharyngeal phase Code(s): R13.10 - Dysphagia, unspecified Status: Acute (2) Esophagitis: Code(s): K20.90 - Esophagitis, unspecified without bleeding Status: Acute (3) Gastroesophageal reflux disease: Qualifiers: Esophagitis presence: with esophagitis Esophagitis bleeding: without hemorrhage Qualified Code(s): K21.00 - Gastro-esophageal reflux disease with esophagitis, without bleeding Code(s): K21.9 - Gastro-esophageal reflux disease without esophagitis Status: Acute Plan 1. Dysphagia/ esophagitis/ GERD/possible aspiration: Per patient last EGD performed > 20 years ago. Patient's sister recently diagnosed and treated for vocal cord cancer. Recent CTA showed pneumonia secondary to infection versus aspiration And esophagitis. patient admits to longstanding history of reflux and states that he has been taking pantoprazole 40 mg daily for many years. Recently over the past few weeks he has been having more frequent breakthrough reflux. He states that he typically sleeps with the head of the bed elevated secondary to chronic respiratory issues and reflux. He admits to intermittent dysphagia for the past few years stating that he often chokes on liquids and sometimes pills but denies any difficulty swallowing solid foods. esophagitis noted on recent imaging has been present dating back to before 2021 but this has never been for followed up on. DDX: inadequate acid suppression versus bile acid reflux versus motility disorder versus esophageal ring or stricture versus neoplasm. Swallowing difficulty seems to be more oropharyngeal in nature at this time. Modified barium swallow which speech therapy ordered Continue pantoprazole daily Discussed endoscopic evaluation as outpatient given that he has multiple acute issues such as pneumonia, elevated troponins, and recent cardiac catheterization with stent placement on anticoagulation. However; if swallow study is abnormal From a GI standpoint, may consider inpatient EGD. Patient states that he will need to find out if he can have his GI workup done at the [facility]. Screening colonoscopy colon: Per patient last colonoscopy performed > 10 years ago. Family history negative for CRC or IBD. He is having regular bowel movements every 1-2 days typically. He has occasional episodes of constipation but states that they are not frequent or problematic enough at this time to warrant intervention. He denies any alarm symptoms at this time. Patient to consider outpatient colonoscopy at [facility] Thank you very much for allowing me to share in the care of this very nice patient. This report may have been done utilizing a voice recognition system. Attempts have been made to correct errors. However, there may be uncorrected grammatical, spelling, and recognition errors present. GI Consult Note Consult date/time: 09/02/24 10:28 Reason for consult: Dysphagia and esophagitis HPI: Mc Colon is a pleasant 74 year old male with PMSH of CAD with recent cardiac catheterization with 2 stents placed in June, COPD on home oxygen, HTN, HLD, and history of prostate cancer we seeing surgery only no chemo or radiation. He presented to the ER yesterday with complaints of chest pain. GI has been consulted for dysphagia and esophagitis. Patient was seen with his sisters Sejal and Zoe at his bedside throughout the entire visit. Patient admits to a longstanding history of reflux and has been on pantoprazole 40 mg daily for many years. He states that recently he has been having episodes of breakthrough reflux. He sleeps with the head of his bed elevated due to reflux and shortness of breath symptoms. He admits to intermittent episodes of swallowing difficulty over the past few years. His swallowing difficulty is more with liquids and pills than with solid foods. He typically has a formed non urgent bowel movement every 1-2 days but has occasional constipation that is not frequent or problematic. Denies abdominal pain, nausea, vomiting, bloating, odynophagia, regurgitation, early satiety, unexplained weight loss, appetite loss, diarrhea, hematochezia, or melena. He is on aspirin 81 mg daily and Brilinta. He is a nondrinker nonsmoker and denies any marijuana use. Family history significant for vocal cord cancer (sister ) and pancreatic cancer (sister at age 33). ENDOSCOPY HISTORY: EGD: Per patient last EGD > 20 years ago COLONOSCOPY: patient believes last colonoscopy was > 10 years ago LABS AND STOOL STUDIES: Labs 09/02/2024: Sodium 142, potassium 4.5, BUN 23, creatinine 1.03, GFR > 60 WBCs 8, HGB 14, HCT 44, MCV 95, platelets 306, INR 1.1 Total bilirubin 0.7, AST 28, ALT 23, alkaline phosphatase 88 Calcium 9.6, magnesium 2.2, lipase 167 troponin positive x3, D-dimer 0.69 IMAGING: CTA chest 09/01/2024: IMPRESSION: No CT evidence of acute pulmonary embolus. Subsegmental bibasilar consolidation may represent infection/aspiration. Small bilateral pleural effusions. The right pleural fluid is hyperdense and there is anterior right pleural thickening versus loculated fluid. Mediastinal lymphadenopathy. Moderate esophagitis. Chest Xray 09/01/2024: IMPRESSION: No acute cardiopulmonary process. Chronic interstitial lung disease, overlying emphysematous change. CTA chest/abd/pelvis 06/16/2024: IMPRESSION: Thyroid goiter Diffuse esophageal wall thickening, possibly due to esophagitis Extensive coronary artery calcification Small pleural effusions, bilateral lower lobe infiltrate/atelectasis Prominent atherosclerosis of the thoracic and abdominal aorta without dissection; 4 cm fusiform infrarenal abdominal aortic aneurysm 1.4 cm right renal cyst CT abd/pelvis w/contrast 05/06/2022: IMPRESSION: Prostate enlargement and calcifications with bladder outlet obstruction causing moderate diffuse thickening of the urinary bladder wall Thickening of the distal wall of the esophagus and gastric fundus and body; consider esophagram and upper gastrointestinal series or endoscopy Small sliding hiatal hernia Numerous hepatic cysts, 1.3 cm right renal cyst Focal mild scarring of each kidney 3.5 cm saccular infrarenal abdominal aortic aneurysm Review of Systems Constitutional: Constitutional: Reports as per HPI ENT: Reports as per HPI Cardiovascular: Cardiovascular: Reports as per HPI, Denies chest pain and Denies dyspnea Respiratory: Respiratory: Denies cough and Denies dyspnea Gastrointestinal: Gastrointestinal: Reports as per HPI Musculoskeletal: Musculoskeletal: Reports as per HPI Integumentary/Breasts: Skin/Breast: Reports as per HPI Psychiatric: Psychiatric: Reports as per HPI Endocrine: Endocrine: Reports no additional endocrine complaints Hematologic/Lymphatic: Hematologic/Lymphatic: Reports no additional hematologic/lymphatic complaints [facility] Past Medical History Medical History (Updated 09/02/24 @ 10:47 by Rosetta Lopez APRN) Prediabetes Depression with anxiety Glaucoma Gastroesophageal reflux disease Obstructive sleep apnea on CPAP Chronic respiratory failure with hypoxia, on home oxygen therapy Chronic obstructive pulmonary disease Hypertension Hyperlipidemia Surgical History Surgical History (Updated 09/01/24 @ 21:38 by Alyssa Atkins PA-C) History of right-sided carotid endarterectomy (2011) History of coronary artery stent placement (06/2024) stents to the distal RCA and LAD History of cardiac catheterization Family History Family History Father COPD (chronic obstructive pulmonary disease) Sibling Macular degeneration Social History Social History (Updated 09/01/24 @ 21:39 by Alyssa Atkins PA-C) Social History: Surrogate medical decision maker: Sejal Fierro, sibling ([phone]). Code status: Full code. Smoking packs per day: 0.5 Smoking cigarettes per day: 10.0 Years smoked: 55 Smoking pack-years: 27.50 Smoking status: Former smoker Tobacco type: cigarettes Smoking end date: 08/26/22 Alcohol intake: never Drinks per week: 119 Alcohol use details: No alcohol since 2017, he was a heavy drinker prior to quitting. Substance use: never Substance use type: does not use Do You Feel Safe in your Home?: Yes Lack of Transportation: No Lack of Food: Never True Current Housing: I Have Housing Concerned About Future Housing: No Difficulty Paying Gas/Electric Bills: No Difficulty Paying for Meds: No Currently Unemployed: No Education: High School Diploma/GED Difficulty w/ Childcare or Family Care: No Living arrangements: alone Spiritual care concerns: No Meds Home Medications and Allergies Home Medications ?Medication ?Instructions ?Recorded ?Confirmed ?Type albuterol sulfate 90 mcg/actuation 2 puff inhalation Q4-5H PRN Dyspnea 06/27/22 09/01/24 History aerosol inhaler aspirin 81 mg tablet,delayed 81 mg PO QPM 06/27/22 09/01/24 History release cetirizine 10 mg capsule 10 mg PO DAILY PRN Congestion 06/27/22 09/01/24 History fluticasone 250 mcg-salmeterol 50 1 inh inhalation BID 06/27/22 09/01/24 History mcg/dose blistr powdr for inhalation (Wixela Inhub) pantoprazole 40 mg tablet,delayed 40 mg PO QAM 06/27/22 09/01/24 History release cholecalciferol (vitamin D3) 25 50 mcg PO DAILY 06/16/24 09/01/24 History mcg (1,000 unit) tablet (Vitamin D3) empagliflozin 10 mg tablet 12.5 mg PO DAILY 06/16/24 09/01/24 History (Jardiance) furosemide 40 mg tablet 40 mg PO DAILY 06/16/24 09/01/24 History latanoprost 0.005 % eye drops 1 drp EACH EYE QPM 06/16/24 09/01/24 History rosuvastatin 40 mg tablet 20 mg PO DAILY 06/16/24 09/01/24 History tiotropium bromide 2.5 2 inh inhalation DAILY 06/16/24 09/01/24 History mcg/actuation mist for inhalation (Spiriva Respimat) ticagrelor 90 mg tablet (Brilinta) 90 mg PO Q12HR 30 days #60 tabs 06/17/24 09/01/24 Rx carvedilol 6.25 mg tablet (Coreg) 6.25 mg PO Q12HR #60 tabs 06/18/24 09/01/24 Rx losartan 50 mg tablet 50 mg PO DAILY #30 tabs 06/18/24 09/01/24 Rx polyethylene glycol 3350 17 17 g PO DAILY PRN constipation 09/01/24 09/01/24 History gram/dose oral powder (Miralax) Allergies Allergy/AdvReac Type Severity Reaction Status Date / Time No Known Allergies Allergy Verified 09/01/24 21:00 Vital Signs Vital Signs - 24 hr 09/01/24 12:57 09/01/24 13:56 09/01/24 15:11 Temperature 97.3 F L Pulse Rate 61 50 L Respiratory Rate 20 17 Blood Pressure 155/65 H 114/57 L Pulse Oximetry 94 96 96 Oxygen Delivery Nasal Cannula Nasal Cannula Oxygen Flow Rate 3 2 09/01/24 16:00 09/01/24 17:18 09/01/24 17:31 Temperature Pulse Rate 58 L 61 66 Respiratory Rate 18 17 16 Blood Pressure 108/71 Pulse Oximetry 95 Oxygen Delivery Oxygen Flow Rate 09/01/24 17:59 09/01/24 18:07 09/01/24 20:08 Temperature Pulse Rate 59 L 62 74 Respiratory Rate 18 16 15 Blood Pressure 126/70 128/64 128/74 Pulse Oximetry 96 97 98 Oxygen Delivery Oxygen Flow Rate 09/01/24 20:51 09/01/24 20:51 09/01/24 22:00 Temperature 98.6 F Pulse Rate 72 68 Respiratory Rate 16 Blood Pressure 135/83 Pulse Oximetry 93 95 Oxygen Delivery Nasal Cannula Oxygen Flow Rate 2 09/01/24 23:10 09/01/24 23:53 09/02/24 00:00 Temperature 98.5 F Pulse Rate 49 L 67 57 L Respiratory Rate 16 Blood Pressure 121/60 Pulse Oximetry 94 Oxygen Delivery Oxygen Flow Rate 09/02/24 00:00 09/02/24 02:00 09/02/24 04:00 Temperature Pulse Rate 61 Respiratory Rate Blood Pressure Pulse Oximetry 97 98 Oxygen Delivery Nasal Cannula Nasal Cannula Oxygen Flow Rate 2 2 09/02/24 04:24 09/02/24 07:31 09/02/24 07:32 Temperature 97.7 F Pulse Rate 55 L 77 Respiratory Rate 16 20 Blood Pressure 116/68 Pulse Oximetry 96 95 Oxygen Delivery Nasal Cannula Oxygen Flow Rate 2 09/02/24 07:50 09/02/24 09:38 Temperature 97.4 F L Pulse Rate 63 61 Respiratory Rate 16 Blood Pressure 126/57 L Pulse Oximetry 94 Oxygen Delivery Oxygen Flow Rate Exam Const: General: cooperative, healthy appearing, comfortable, no acute distress and well developed Orientation/consciousness: oriented to person, oriented to place, oriented to time and patient oriented x3 HENMT: Head: normal to inspection, normocephalic and atraumatic Mouth: Yes Normal oral and palatal mucosa present and Yes moist mucous membranes Eyes: General: appearance normal, both eyes and all related structures Conjunctivae: conjunctivae normal Sclera: sclerae normal Pupils: Equal, round and reactive pupils present Neck: Neck: normal visual inspection Chest: Chest palpation & inspection: normal inspection of the chest Resp: Effort & Inspection: normal respiratory effort and able to speak in complete sentences Auscultation: clear to auscultation bilaterally Cardio: Jugular venous distension: no JVD Rate: regular rate Rhythm: regular rhythm Heart sounds: S1 normal heart sound present and S2 normal heart sound present GI: Inspection: normal to inspection GI Palp: Yes Soft to palpation and Yes No hepatosplenomegaly present Auscultation: normal bowel sounds Rectal Exam: deferred Skin: General skin exam: normal color and no rashes or lesions noted Neuro: General: oriented to person, oriented to place, oriented to time and patient oriented x3 Cranial nerves: Yes Equal, round and reactive pupils present Speech: normal speech Extrem: General: normal to inspection and no clubbing, cyanosis or edema Psych: Appearance: grossly normal and well kempt Affect: normal affect Results Labs 09/02/24 04:01 09/02/24 04:01 Labs: Short CBC 09/01/24 09/02/24 Range/Units 13:11 04:01 WBC 8.3 7.9 (4.5-10.0) K/mm3 Hgb 14.4 13.7 L (14.0-18.0) g/dL Hct 45.1 44.1 (42.0-52.0) % Plt Count 330 D 306 (150-375) k/mm3 BMP 09/01/24 09/02/24 13:11 04:01 Sodium 139 142 Potassium 4.2 4.5 Chloride 99 99 Carbon Dioxide 32 H 35 H BUN 24 H D 23 H Creatinine 0.93 1.03 Glucose 125 H 99 Calcium 9.3 9.6 Cardiac Enzymes 09/01/24 09/01/24 09/01/24 Range/Units 13:11 15:49 20:27 Troponin I 0.012 0.099 H* D 0.734 H* D (0.000-0.034) ng/mL 09/02/24 Range/Units 08:53 Troponin I 0.554 H* (0.000-0.034) ng/mL Liver Function 09/01/24 Range/Units 13:11 Total Bilirubin 0.7 (0.2-1.3) mg/dL AST 28 (17-59) U/L ALT 23 (6-50) U/L Alkaline Phosphatase 88 (38-126) U/L Albumin 4.5 (3.5-5.1) g/dL
--- NOTE | 2024-09-02 11:30 | P.CONCA_ITS ---
Assessment and Plan Assessment and plan (1) Non-ST elevation myocardial infarction (NSTEMI): Code(s): I21.4 - Non-ST elevation (NSTEMI) myocardial infarction Status: Acute (2) Hypertension associated with diabetes: Code(s): E11.59 - Type 2 diabetes mellitus with other circulatory complications; I15.2 - Hypertension secondary to endocrine disorders Status: Acute (3) Hyperlipidemia: Code(s): E78.5 - Hyperlipidemia, unspecified Status: Acute Plan 74-year-old man with CAD status post PCI, carotid artery stenosis status post right CEA, hypertension, hyperlipidemia, and chronic hypoxic respiratory failure presented with chest pain Non ST elevation MT -appears to be more demand related however given his clinical presentation will proceed with cardiac catheterization to define his coronary anatomy -was anticoagulated last evening with Lovenox -continue aspirin 81 mg p.o. daily and Brilinta 90 mg p.o. b.i.d. -continue carvedilol 6.25 mg p.o. b.i.d. -continue rosuvastatin 20 mg every evening -obtain limited transthoracic echocardiogram Hypertension -continue losartan 50 mg p.o. daily Hyperlipidemia -continue rosuvastatin 20 mg every evening History of Present Illness History of Present Illness Consult date/time: 09/02/24 11:30 Requesting physician: Tera Samaniego MD Consult reason: chest pain Reason For Visit: CP/CAD/Troponin Narrative: 74-year-old man with CAD status post PCI, carotid artery stenosis status post right CEA, hypertension, hyperlipidemia, and chronic hypoxic respiratory failure presented with chest pain. Typically as nocturnal chest discomfort across his precordium that is noted to be pressure in sensation with radiation to his left arm and left scapula. These discomfort typically resolve on their own. However yesterday he had an episode in the afternoon that was not resolving and this was followed by mild amount of diaphoresis which brought him into the emergency room for further evaluation. This was similar to his previous presentation at the much milder in severity. Otherwise he has been feeling well without limitations in regards to physical abilities and appears to be at his baseline functional status. Review of Systems 2 Cardiovascular: Cardiovascular: Reports as per HPI Respiratory: Respiratory: Reports as per HPI [facility] Past Medical History Medical History (Updated 09/02/24 @ 10:47 by Rosetta D. Eslinger, E TAILER) Prediabetes Depression with anxiety Glaucoma Gastroesophageal reflux disease Obstructive sleep apnea on CPAP Chronic respiratory failure with hypoxia, on home oxygen therapy Chronic obstructive pulmonary disease Hypertension Hyperlipidemia Surgical History Surgical History (Updated 09/01/24 @ 21:38 by Alyssa Atkins PA-C) History of right-sided carotid endarterectomy (2011) History of coronary artery stent placement (06/2024) stents to the distal RCA and LAD History of cardiac catheterization Family History Family History Father COPD (chronic obstructive pulmonary disease) Sibling Macular degeneration Social History Social History (Updated 09/01/24 @ 21:39 by Alyssa Atkins PA-C) Social History: Surrogate medical decision maker: Sejal Fierro, sibling ([phone]). Code status: Full code. 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 Substance use: never Substance use type: does not use Do You Feel Safe in your Home?: Yes Lack of Transportation: No Lack of Food: Never True Current Housing: I Have Housing Concerned About Future Housing: No Difficulty Paying Gas/Electric Bills: No Difficulty Paying for Meds: No Currently Unemployed: No Education: High School Diploma/GED Difficulty w/ Childcare or Family Care: No Living arrangements: alone Spiritual care concerns: No Meds Home Medications and Allergies Home Medications ?Medication ?Instructions ?Recorded ?Confirmed ?Type albuterol sulfate 90 mcg/actuation 2 puff inhalation Q4-5H PRN Dyspnea 06/27/22 09/01/24 History aerosol inhaler aspirin 81 mg tablet,delayed 81 mg PO QPM 06/27/22 09/01/24 History release cetirizine 10 mg capsule 10 mg PO DAILY PRN Congestion 06/27/22 09/01/24 History fluticasone 250 mcg-salmeterol 50 1 inh inhalation BID 06/27/22 09/01/24 History mcg/dose blistr powdr for inhalation (Wixela Inhub) pantoprazole 40 mg tablet,delayed 40 mg PO QAM 06/27/22 09/01/24 History release cholecalciferol (vitamin D3) 25 50 mcg PO DAILY 06/16/24 09/01/24 History mcg (1,000 unit) tablet (Vitamin D3) empagliflozin 10 mg tablet 12.5 mg PO DAILY 06/16/24 09/01/24 History (Jardiance) furosemide 40 mg tablet 40 mg PO DAILY 06/16/24 09/01/24 History latanoprost 0.005 % eye drops 1 drp EACH EYE QPM 06/16/24 09/01/24 History rosuvastatin 40 mg tablet 20 mg PO DAILY 06/16/24 09/01/24 History tiotropium bromide 2.5 2 inh inhalation DAILY 06/16/24 09/01/24 History mcg/actuation mist for inhalation (Spiriva Respimat) ticagrelor 90 mg tablet (Brilinta) 90 mg PO Q12HR 30 days #60 tabs 06/17/24 09/01/24 Rx carvedilol 6.25 mg tablet (Coreg) 6.25 mg PO Q12HR #60 tabs 06/18/24 09/01/24 Rx losartan 50 mg tablet 50 mg PO DAILY #30 tabs 06/18/24 09/01/24 Rx polyethylene glycol 3350 17 17 g PO DAILY PRN constipation 09/01/24 09/01/24 History gram/dose oral powder (Miralax) Allergies Allergy/AdvReac Type Severity Reaction Status Date / Time No Known Allergies Allergy Verified 09/01/24 21:00 Vital Signs Vital Signs - 24 hr 09/01/24 12:57 09/01/24 13:56 09/01/24 15:11 Temperature 36.3 C L Pulse Rate 61 50 L Respiratory Rate 20 17 Blood Pressure 155/65 H 114/57 L Pulse Oximetry 94 96 96 Oxygen Delivery Nasal Cannula Nasal Cannula Oxygen Flow Rate 3 2 09/01/24 16:00 09/01/24 17:18 09/01/24 17:31 Temperature Pulse Rate 58 L 61 66 Respiratory Rate 18 17 16 Blood Pressure 108/71 Pulse Oximetry 95 Oxygen Delivery Oxygen Flow Rate 09/01/24 17:59 09/01/24 18:07 09/01/24 20:08 Temperature Pulse Rate 59 L 62 74 Respiratory Rate 18 16 15 Blood Pressure 126/70 128/64 128/74 Pulse Oximetry 96 97 98 Oxygen Delivery Oxygen Flow Rate 09/01/24 20:51 09/01/24 20:51 09/01/24 22:00 Temperature 37.0 C Pulse Rate 72 68 Respiratory Rate 16 Blood Pressure 135/83 Pulse Oximetry 93 95 Oxygen Delivery Nasal Cannula Oxygen Flow Rate 2 09/01/24 23:10 09/01/24 23:53 09/02/24 00:00 Temperature 36.9 C Pulse Rate 49 L 67 57 L Respiratory Rate 16 Blood Pressure 121/60 Pulse Oximetry 94 Oxygen Delivery Oxygen Flow Rate 09/02/24 00:00 09/02/24 02:00 09/02/24 04:00 Temperature Pulse Rate 61 Respiratory Rate Blood Pressure Pulse Oximetry 97 98 Oxygen Delivery Nasal Cannula Nasal Cannula Oxygen Flow Rate 2 2 09/02/24 04:24 09/02/24 07:31 09/02/24 07:32 Temperature 36.5 C Pulse Rate 55 L 77 Respiratory Rate 16 20 Blood Pressure 116/68 Pulse Oximetry 96 95 Oxygen Delivery Nasal Cannula Oxygen Flow Rate 2 09/02/24 07:50 09/02/24 08:00 09/02/24 08:00 Temperature 36.3 C L Pulse Rate 63 61 Respiratory Rate 16 Blood Pressure 126/57 L Pulse Oximetry 94 97 Oxygen Delivery Nasal Cannula Oxygen Flow Rate 2 09/02/24 09:38 09/02/24 10:00 Temperature Pulse Rate 61 63 Respiratory Rate Blood Pressure Pulse Oximetry Oxygen Delivery Oxygen Flow Rate Exam 2 Const: General: comfortable HENMT: Mouth: Yes moist mucous membranes Eyes: EOM: EOMs intact bilaterally Neck: Neck: no JVD Resp: Effort & Inspection: normal respiratory effort Auscultation: clear to auscultation bilaterally Cardio: Rate: regular rate Rhythm: regular rhythm GI: GI Palp: Yes Soft to palpation Extrem: General: no pedal edema Results Labs and Meds 09/02/24 04:01 09/02/24 04:01 Lab results: Cardiac Enzymes 09/01/24 09/01/24 09/01/24 Range/Units 13:11 15:49 20:27 AST 28 (17-59) U/L Troponin I 0.012 0.099 H* D 0.734 H* D (0.000-0.034) ng/mL 09/02/24 Range/Units 08:53 AST (17-59) U/L Troponin I 0.554 H* (0.000-0.034) ng/mL Coagulation 09/01/24 Range/Units 13:11 PT 14.6 (11.1-14.7) Seconds APTT 28.4 (22.3-36.8) Seconds CBC 09/01/24 09/02/24 Range/Units 13:11 04:01 WBC 8.3 7.9 (4.5-10.0) K/mm3 RBC 4.87 4.66 (4.6-6.20) M/mm3 Hgb 14.4 13.7 L (14.0-18.0) g/dL Hct 45.1 44.1 (42.0-52.0) % Plt Count 330 D 306 (150-375) k/mm3 Lymph # (Auto) 1.61 (0.9-3.2) K/mm3 [place] # (Auto) 0.5 (0.1-0.6) K/mm3 Eos # (Auto) 1.6 H (0-0.3) K/mm3 Baso # (Auto) 0.1 (0.0-0.1) K/mm3 Comprehensive Metabolic Panel 09/01/24 09/02/24 Range/Units 13:11 04:01 Sodium 139 142 (137-145) mmol/L Potassium 4.2 4.5 (3.4-5.0) mmol/L Chloride 99 99 (98-107) mmol/L Carbon Dioxide 32 H 35 H (22-30) mmol/L BUN 24 H D 23 H (9-20) mg/dL Creatinine 0.93 1.03 (0.7-1.3) mg/dL Glucose 125 H 99 (65-110) mg/dL Calcium 9.3 9.6 (8.4-10.2) mg/dL AST 28 (17-59) U/L ALT 23 (6-50) U/L Alkaline Phosphatase 88 (38-126) U/L Total Protein 9.0 H (6.3-8.2) g/dL Albumin 4.5 (3.5-5.1) g/dL Intake and Output 09/01/24 09/02/24 09/02/24 23:59 07:59 15:59 Intake Total 240 Balance 240 Intake: Oral 240 Other: # Unmeasured Voids 2 Patient Weight 09/02/24 23:59 Weight 91.6 kg
--- NOTE | 2024-09-02 11:36 | IVDEFINITY ---
Prior to administration of IV Definity the patient was educated on the risks and benefits of the imaging enhancing agent including potential adverse side effects. The patient verbalized understanding. Allergies were verified. No exclusion criteria were identified and at least one of the following inclusion criteria were met: 1) physician request, 2) patient technically difficult to image (per the [place] [employer] guidelines of two or more segments not discernable within the apical view), or 3) questionable left ventricular function. ?
--- NOTE | 2024-09-02 11:37 | P.SEDATION_ITS ---
Moderate Sedation Note-Pt Data Patient Data Allergies Allergy/AdvReac Type Severity Reaction Status Date / Time No Known Allergies Allergy Verified 09/01/24 21:00 Home Medications ?Medication ?Instructions ?Recorded ?Confirmed ?Type albuterol sulfate 90 mcg/actuation 2 puff inhalation Q4-5H PRN Dyspnea 06/27/22 09/01/24 History aerosol inhaler aspirin 81 mg tablet,delayed 81 mg PO QPM 06/27/22 09/01/24 History release cetirizine 10 mg capsule 10 mg PO DAILY PRN Congestion 06/27/22 09/01/24 History fluticasone 250 mcg-salmeterol 50 1 inh inhalation BID 06/27/22 09/01/24 History mcg/dose blistr powdr for inhalation (Wixela Inhub) pantoprazole 40 mg tablet,delayed 40 mg PO QAM 06/27/22 09/01/24 History release cholecalciferol (vitamin D3) 25 50 mcg PO DAILY 06/16/24 09/01/24 History mcg (1,000 unit) tablet (Vitamin D3) empagliflozin 10 mg tablet 12.5 mg PO DAILY 06/16/24 09/01/24 History (Jardiance) furosemide 40 mg tablet 40 mg PO DAILY 06/16/24 09/01/24 History latanoprost 0.005 % eye drops 1 drp EACH EYE QPM 06/16/24 09/01/24 History rosuvastatin 40 mg tablet 20 mg PO DAILY 06/16/24 09/01/24 History tiotropium bromide 2.5 2 inh inhalation DAILY 06/16/24 09/01/24 History mcg/actuation mist for inhalation (Spiriva Respimat) ticagrelor 90 mg tablet (Brilinta) 90 mg PO Q12HR 30 days #60 tabs 06/17/24 09/01/24 Rx carvedilol 6.25 mg tablet (Coreg) 6.25 mg PO Q12HR #60 tabs 06/18/24 09/01/24 Rx losartan 50 mg tablet 50 mg PO DAILY #30 tabs 06/18/24 09/01/24 Rx polyethylene glycol 3350 17 17 g PO DAILY PRN constipation 09/01/24 09/01/24 History gram/dose oral powder (Miralax) Current Medications: Active Medications Acetaminophen (Acetaminophen 325 Mg Tablet) 650 mg PO Q6H PRN PRN Reason: Mild Pain (1-3) or Fever Albuterol (Albuterol Sulfate (*Sp) Aerosol 1 Puff) 2 puff INHALATION Q4-6H PRN PRN Reason: Dyspnea Aspirin (Aspirin 81 Mg Enteric Tablet) 81 mg PO QPM [facility] Calcium Carbonate (Calcium Carbonate (Tums) 500 Mg (200 Mg Elemental)) 200 mg PO Q6H PRN PRN Reason: Indigestion Carvedilol (Carvedilol 6.25 Mg Tablet) 6.25 mg PO Q12HR [facility] Last Admin: 09/02/24 09:38 Dose: 6.25 mg Dextrose (Dextrose 50% 25 Gm/50 Ml Syringe) 12.5 gm IV PUSH PRN PRN; Protocol PRN Reason: Hypoglycemia Empagliflozin (Empagliflozin 12.5 Mg Tablet) 12.5 mg PO DAILY [facility] Last Admin: 09/02/24 09:40 Dose: Not Given Furosemide (Furosemide 40 Mg Tablet) 40 mg PO DAILY [facility] Last Admin: 09/02/24 09:40 Dose: Not Given Glucagon (Glucagon For Inj 1 Mg Vial) 1 mg IM PRN PRN; Protocol PRN Reason: Hypoglycemia Glucose (Glucose Oral Gel 15 Gm Of Glucse In 37.5 Gm Tube) 15 gm PO PRN PRN; Protocol PRN Reason: Hypoglycemia Guaifenesin (Guaifenesin 12 Hr 600 Mg Tabcr) 1,200 mg PO Q12HR [facility] Last Admin: 09/02/24 09:37 Dose: 1,200 mg Dextrose (Dextrose 5% 1,000 Ml) 1,000 mls @ 100 mls/hr IVPB PRN PRN; Protocol PRN Reason: Hypoglycemia Latanoprost (Latanoprost 0.005% Op Soln 2.5 Ml Btl) 1 drop EACH EYE QPM [facility] Loratadine (Loratadine 10 Mg Tablet) 10 mg PO DAILY PRN PRN Reason: Congestion Losartan Potassium (Losartan Potassium 50 Mg Tablet) 50 mg PO DAILY [facility] Last Admin: 09/02/24 09:37 Dose: 50 mg Nitroglycerin (Nitroglycerin Sl 0.4 Mg Tablet) 0.4 mg SUBLINGUAL Q5MIN PRN PRN Reason: Chest Pain Ondansetron HCl (Ondansetron Inj 4 Mg/2 Ml Vial) 4 mg IV PUSH Q4H PRN PRN Reason: Nausea Pantoprazole Sodium (Pantoprazole 40 Mg Tablet) 40 mg PO BID [facility] Polyethylene Glycol (Polyethylene Glycol 3350 17 Gm Powd.Pack) 17 gm PO DAILY PRN PRN Reason: constipation Rosuvastatin Calcium (Rosuvastatin 20 Mg Tablet) 20 mg PO DAILY [facility] Last Admin: 09/02/24 09:37 Dose: 20 mg Fluticasone/Salmeterol (Fluticasone/Salmeterol 115-21 Mcg Inhaler 1 Puff) 2 puff INHALATION Q12HRT [facility] Last Admin: 09/02/24 07:20 Dose: 2 puff Ticagrelor (Ticagrelor 90 Mg Tablet) 90 mg PO Q12HR [facility] Last Admin: 09/02/24 09:37 Dose: 90 mg Umeclidinium [place] (Umeclidinium [place] 62.5 Mcg Ellipta) 2 puff INHALATION DAILYRT [facility] Last Admin: 09/02/24 07:24 Dose: Not Given Vitamin D (Cholecalciferol 1,000 Units Tablet) 2,000 units PO DAILY [facility] Last Admin: 09/02/24 09:37 Dose: 2,000 units Sedation/Anesthesia: No previous sedation/anesthesia problems (including family history). [facility] Past Medical History Medical History (Updated 09/02/24 @ 10:47 by Rosetta Lopez APRN) Prediabetes Depression with anxiety Glaucoma Gastroesophageal reflux disease Obstructive sleep apnea on CPAP Chronic respiratory failure with hypoxia, on home oxygen therapy Chronic obstructive pulmonary disease Hypertension Hyperlipidemia Surgical History Surgical History (Updated 09/01/24 @ 21:38 by Alyssa Atkins PA-C) History of right-sided carotid endarterectomy (2011) History of coronary artery stent placement (06/2024) stents to the distal RCA and LAD History of cardiac catheterization Family History Family History Father COPD (chronic obstructive pulmonary disease) Sibling Macular degeneration Social History Social History (Updated 09/01/24 @ 21:39 by Alyssa Atkins PA-C) Social History: Surrogate medical decision maker: Sejal Fierro, sibling ([phone]). Code status: Full code. 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 Substance use: never Substance use type: does not use Do You Feel Safe in your Home?: Yes Lack of Transportation: No Lack of Food: Never True Current Housing: I Have Housing Concerned About Future Housing: No Difficulty Paying Gas/Electric Bills: No Difficulty Paying for Meds: No Currently Unemployed: No Education: High School Diploma/GED Difficulty w/ Childcare or Family Care: No Living arrangements: alone Spiritual care concerns: No Mod Sed Physical Exam Physical Exam Pre Procedural Exam: Normal: Lungs, Heart Rate and Heart Rhythm Hours since solid foods: 12 Hours since liquid intake: 12 Mallampati Classification: class II Internal Medicine - PN: Obj Da Vital Signs Vital Signs: Vital Signs - 24 hr 09/01/24 12:57 09/01/24 13:56 09/01/24 15:11 Temperature 36.3 C L Pulse Rate 61 50 L Respiratory Rate 20 17 Blood Pressure 155/65 H 114/57 L Pulse Oximetry 94 96 96 Oxygen Delivery Nasal Cannula Nasal Cannula Oxygen Flow Rate 3 2 09/01/24 16:00 09/01/24 17:18 09/01/24 17:31 Temperature Pulse Rate 58 L 61 66 Respiratory Rate 18 17 16 Blood Pressure 108/71 Pulse Oximetry 95 Oxygen Delivery Oxygen Flow Rate 09/01/24 17:59 09/01/24 18:07 09/01/24 20:08 Temperature Pulse Rate 59 L 62 74 Respiratory Rate 18 16 15 Blood Pressure 126/70 128/64 128/74 Pulse Oximetry 96 97 98 Oxygen Delivery Oxygen Flow Rate 09/01/24 20:51 09/01/24 20:51 09/01/24 22:00 Temperature 37.0 C Pulse Rate 72 68 Respiratory Rate 16 Blood Pressure 135/83 Pulse Oximetry 93 95 Oxygen Delivery Nasal Cannula Oxygen Flow Rate 2 09/01/24 23:10 09/01/24 23:53 09/02/24 00:00 Temperature 36.9 C Pulse Rate 49 L 67 57 L Respiratory Rate 16 Blood Pressure 121/60 Pulse Oximetry 94 Oxygen Delivery Oxygen Flow Rate 09/02/24 00:00 09/02/24 02:00 09/02/24 04:00 Temperature Pulse Rate 61 Respiratory Rate Blood Pressure Pulse Oximetry 97 98 Oxygen Delivery Nasal Cannula Nasal Cannula Oxygen Flow Rate 2 2 09/02/24 04:24 09/02/24 07:31 09/02/24 07:32 Temperature 36.5 C Pulse Rate 55 L 77 Respiratory Rate 16 20 Blood Pressure 116/68 Pulse Oximetry 96 95 Oxygen Delivery Nasal Cannula Oxygen Flow Rate 2 09/02/24 07:50 09/02/24 08:00 09/02/24 08:00 Temperature 36.3 C L Pulse Rate 63 61 Respiratory Rate 16 Blood Pressure 126/57 L Pulse Oximetry 94 97 Oxygen Delivery Nasal Cannula Oxygen Flow Rate 2 09/02/24 09:38 09/02/24 10:00 Temperature Pulse Rate 61 63 Respiratory Rate Blood Pressure Pulse Oximetry Oxygen Delivery Oxygen Flow Rate Intake/Output Intake/Output: Intake & Output 08/30/24 08/31/24 09/01/24 09/02/24 23:59 23:59 23:59 23:59 Intake Total 240 Balance 240 Meds/Results Medications: Active Medications Generic Name Dose Route Start Last Admin Trade Name Freq PRN Reason Stop Dose Admin Acetaminophen 650 mg 09/01/24 21:51 Acetaminophen 325 Mg Tablet PO Q6H PRN Mild Pain (1-3) or Fever Albuterol 2 puff 09/01/24 21:45 Albuterol Sulfate (*Sp) Aerosol 1 Puff INHALATION Q4-6H PRN Dyspnea Aspirin 81 mg 09/02/24 18:00 Aspirin 81 Mg Enteric Tablet PO QPM [place] Calcium Carbonate 200 mg 09/01/24 21:51 Calcium Carbonate (Tums) 500 Mg (200 Mg Elemental) PO Q6H PRN Indigestion Carvedilol 6.25 mg 09/01/24 21:50 09/02/24 09:38 Carvedilol 6.25 Mg Tablet PO 6.25 mg Q12HR [facility] Administration Dextrose 12.5 gm 09/01/24 17:20 Dextrose 50% 25 Gm/50 Ml Syringe IV PUSH PRN PRN Hypoglycemia Protocol Empagliflozin 12.5 mg 09/02/24 09:00 09/02/24 09:40 Empagliflozin 12.5 Mg Tablet PO Not Given DAILY [facility] Furosemide 40 mg 09/02/24 09:00 09/02/24 09:40 Furosemide 40 Mg Tablet PO Not Given DAILY [facility] Glucagon 1 mg 09/01/24 17:20 Glucagon For Inj 1 Mg Vial IM PRN PRN Hypoglycemia Protocol Glucose 15 gm 09/01/24 17:20 Glucose Oral Gel 15 Gm Of Glucse In 37.5 Gm Tube PO PRN PRN Hypoglycemia Protocol Guaifenesin 1,200 mg 09/02/24 09:00 09/02/24 09:37 Guaifenesin 12 Hr 600 Mg Tabcr PO 1,200 mg Q12HR [place] Administration Dextrose 1,000 mls @ 100 mls/hr 09/01/24 17:20 Dextrose 5% 1,000 Ml IVPB PRN PRN Hypoglycemia Protocol Latanoprost 1 drop 09/02/24 18:00 Latanoprost 0.005% Op Soln 2.5 Ml Btl EACH EYE QPM [facility] Loratadine 10 mg 09/01/24 21:50 Loratadine 10 Mg Tablet PO DAILY PRN Congestion Losartan Potassium 50 mg 09/02/24 09:00 09/02/24 09:37 Losartan Potassium 50 Mg Tablet PO 50 mg DAILY [facility] Administration Nitroglycerin 0.4 mg 09/01/24 17:20 Nitroglycerin Sl 0.4 Mg Tablet SUBLINGUAL Q5MIN PRN Chest Pain Ondansetron HCl 4 mg 09/01/24 17:20 Ondansetron Inj 4 Mg/2 Ml Vial IV PUSH Q4H PRN Nausea Pantoprazole Sodium 40 mg 09/02/24 17:00 Pantoprazole 40 Mg Tablet PO BID [facility] Polyethylene Glycol 17 gm 09/01/24 21:45 Polyethylene Glycol 3350 17 Gm Powd.Pack PO DAILY PRN constipation Rosuvastatin Calcium 20 mg 09/02/24 09:00 09/02/24 09:37 Rosuvastatin 20 Mg Tablet PO 20 mg DAILY [facility] Administration Fluticasone/Salmeterol 2 puff 09/02/24 08:00 09/02/24 07:20 Fluticasone/Salmeterol 115-21 Mcg Inhaler 1 Puff INHALATION 2 puff Q12HRT [facility] Administration Ticagrelor 90 mg 09/01/24 21:50 09/02/24 09:37 Ticagrelor 90 Mg Tablet PO 90 mg Q12HR [facility] Administration Umeclidinium [place] 2 puff 09/02/24 08:00 09/02/24 07:24 Umeclidinium [place] 62.5 Mcg Ellipta INHALATION Not Given DAILYRT [facility] Vitamin D 2,000 units 09/02/24 09:00 09/02/24 09:37 Cholecalciferol 1,000 Units Tablet PO 2,000 units DAILY [facility] Administration Radiology Results: ITS Impressions Chest X-Ray 09/01/24 14:04 IMPRESSION: No acute cardiopulmonary process. Chronic interstitial lung disease, overlying emphysematous change. Chest CTA 09/01/24 16:26 IMPRESSION: No CT evidence of acute pulmonary embolus. Subsegmental bibasilar consolidation may represent infection/aspiration. Small bilateral pleural effusions. The right pleural fluid is hyperdense and there is anterior right pleural thickening versus loculated fluid. Mediastinal lymphadenopathy. Moderate esophagitis. Labs 09/02/24 04:01 09/02/24 04:01 Labs: Laboratory Results - last 24 hr 09/01/24 09/01/24 09/01/24 13:11 15:49 17:06 WBC 8.3 RBC 4.87 Hgb 14.4 Hct 45.1 MCV 92.6 MCH 29.6 MCHC 31.9 L RDW 14.6 H Plt Count 330 D MPV 9.4 Immature Gran % (Auto) 0.4 Neut % (Auto) 54.4 Lymph % (Auto) 19.4 [place] % (Auto) 5.4 Eos % (Auto) 19.3 H Baso % (Auto) 1.1 Lymph # (Auto) 1.61 [place] # (Auto) 0.5 Eos # (Auto) 1.6 H Baso # (Auto) 0.1 Abs Immat Gran (auto) 0.03 Absolute Neuts (auto) 4.5 Absolute Nucleated RBC 0.000 Nucleated RBC % 0.0 PT 14.6 INR 1.1 APTT 28.4 D-Dimer 0.69 H Sodium 139 Potassium 4.2 Chloride 99 Carbon Dioxide 32 H Anion Gap 8 BUN 24 H D Creatinine 0.93 Estim Creat Clear Calc 65 Estimated GFR > 60 Glucose 125 H Calcium 9.3 Magnesium Total Bilirubin 0.7 AST 28 ALT 23 Alkaline Phosphatase 88 Troponin I 0.012 0.099 H* D Total Protein 9.0 H Albumin 4.5 Lipase 167 Influenza A (RT-PCR) Negative Influenza B (RT-PCR) Negative RSV (RT-PCR) Negative SARS-CoV-2 RNA (RT-PCR) Negative 09/01/24 09/02/24 09/02/24 20:27 04:01 08:53 WBC 7.9 RBC 4.66 Hgb 13.7 L Hct 44.1 MCV 94.6 MCH 29.4 MCHC 31.1 L RDW 14.5 Plt Count 306 MPV 9.2 Immature Gran % (Auto) Neut % (Auto) Lymph % (Auto) [place] % (Auto) Eos % (Auto) Baso % (Auto) Lymph # (Auto) [place] # (Auto) Eos # (Auto) Baso # (Auto) Abs Immat Gran (auto) Absolute Neuts (auto) Absolute Nucleated RBC Nucleated RBC % PT INR APTT D-Dimer Sodium 142 Potassium 4.5 Chloride 99 Carbon Dioxide 35 H Anion Gap 8 BUN 23 H Creatinine 1.03 Estim Creat Clear Calc 59 Estimated GFR > 60 Glucose 99 Calcium 9.6 Magnesium 2.2 Total Bilirubin AST ALT Alkaline Phosphatase Troponin I 0.734 H* D 0.554 H* Total Protein Albumin Lipase Influenza A (RT-PCR) Influenza B (RT-PCR) RSV (RT-PCR) SARS-CoV-2 RNA (RT-PCR) ASA Classification/Sedation ASA Classification/Sedation ASA Class: III Emergent: No Risks: Risks, benefits and alternatives explained and patient/family accepted plan for sedation. Patient re-evaluated immediately prior to sedation.
--- NOTE | 2024-09-02 11:37 | WPDHPUPDATE1 ---
History and Physical Update Update Date/Time: 09/02/24 09:37 History and Physical has been reviewed, including an updated exam of the patient. There are NO changes in the patient's condition. Risks, benefits, and alternatives have been discussed and questions answered. Patient agrees to proceed with procedure.
--- NOTE | 2024-09-02 12:53 | P.PCNCC_ITS ---
Cardiac Cath Procedure Note Date of procedure:: 09/02/24 Performing physician:: CATHETERIZATION LABORATORY REPORT Procedure Date: 09/02/2024 Referring Physician: Dr. Samaniego Anesthesia: Versed and Fentanyl were ordered and given in my presence at 1214, procedure ended at 1230. Supervision of nurse, Bernadette Child monitored moderate sedation with 2mg Versed and 50mcg Fentanyl was provided for 16 minutes. Pre-op Diagnosis: NSTEMI Post-op Diagnosis: NSTEMI Procedure(s): Left heart catheterization with coronary angiography Access Site: Right radial artery Brief History and Clinical Indications: 74-year-old man with CAD status post PCI, carotid artery stenosis status post right CEA, hypertension, hyperlipidemia, and chronic hypoxic respiratory failure presented with chest pain whose clinical presentation was concerning for non ST elevation NM for which he was brought to the cardiac catheterization to define his coronary anatomy with possible PCI. All risks, benefits and alternatives to left heart catheterization with or without percutaneous coronary intervention was discussed at length with the patient. Risk of complications including but not limited to bleeding, infection, arrhythmia, stroke, worsening kidney function, blood loss, groin hematoma, limb loss, emergency coronary artery bypass grafting, and even were discussed with the patient and all questions were answered. The patient understood and wished to proceed. Time out called, patient name, date of , medical record number, allergies, procedure performed, identify Gang Saw Operator, patient and staff member concurred with accurate data, procedure carried on. Findings: LEFT HEART CATHETERIZATION FINDINGS: 1. Left main: The left main coronary artery is widely patent without any significant obstructive disease. 2. Left anterior descending: The LAD has a patent stent in its midbody. The ostial to proximal LAD has 10% stenosis. After the stented area the LAD divides into a dual system. In the inferior branch there is 20% stenosis ostium. 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 The superior branch has luminal irregularities with myocardial bridging. 3. Left circumflex: The left circumflex artery gives off 3 OM branches. The ostial left circumflex has 10-20% stenosis and immediately gives off the 1st OM branch. The 1st OM branch is a large caliber vessel that reaches the lateral apex and has a myocardial bridge in its midbody otherwise has 20-30% stenosis in its proximal body. The OM2 vessel is a moderate caliber vessel that also has myocardial bridge otherwise has luminal irregularities. The OM 3 is a moderate caliber vessel with luminal irregularities. The remainder of the left circumflex continues on into the AV groove and has no high-grade angiographic stenosis. 4. Right coronary artery: The RCA is a large dominant vessel with patent stent in the distal RCA leading into the right PL branch. The remainder of the vessel has diffuse 10-20% stenosis. 5. Left ventricle: A. End-diastolic pressure 22 mmHg. B. LV gram shows preserved left ventricular systolic function. C. No significant gradient across aortic valve on catheter pullback. 6. Opening AO pressure 104/63 and closing AO pressure 103/47 Description of Procedure: Informed consent signed and placed in the chart. Patient transferred to lab analyst room. Prepped and draped in usual sterile fashion. 2% lidocaine injected subcutaneously in right wrist area. 22-gauge venipuncture catheter used to access the right radial artery with the Seldinger technique. 6-FR slender sheath placed in right radial artery. Nitroglycerin 200mcg, Verapamil 2.5mg, and Heparin 5000U was given intraarterial through the sheath. J wire advanced under fluoroscopy 5F TIG diagnostic catheter engaged Left Main Coronary Artery. 5F JR4 diagnostic catheter engaged Right Coronary Artery Multiple orthogonal angiogram obtained and reviewed 5F Pigtail diagnostic catheter crossed aortic valve to obtain LVEDP, LV angiogram performed. Hemostasis was achieved by application of TR band. Assessment: Myocardial bridging. Patent stents. Post Operative Condition: Stable No significant blood loss Disposition: Home Plan: Continue his current medical regimen. Can be discharged to follow-up with his outpatient digital marketing specialist at the [facility]
[2024-09-02] MEDS: SODIUM CHLORIDE 0.9% IV 1,000 ML 125 ML IV CONT (13:17)
--- NOTE | 2024-09-02 13:53 | PCSTNOTE ---
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
[2024-09-02] MEDS: ASPIRIN 81 MG ENTERIC TABLET PO (16:56)
[2024-09-02] MEDS: LATANOPROST 0.005% OP SOLN 2.5 ML BTL 1 DROP EACH EYE (16:58)
[2024-09-03] VITALS (16 sets, daily range): BP systolic 122–142; BP diastolic 60–67; PULSE 52–73; RESP 12–24; TEMP 36.3–36.8; O2SAT 91–98
[2024-09-03] MEDS: ROSUVASTATIN 20 MG TABLET PO (08:34)
[2024-09-03] MEDS: carvediloL 6.25 MG TABLET PO ×2 (08:34→21:09)
[2024-09-03] MEDS: guaiFENesin 12 HR 600 MG TABCR 1200 MG PO ×2 (08:34→21:09)
[2024-09-03] MEDS: LOSARTAN POTASSIUM 50 MG TABLET PO (08:34)
[2024-09-03] MEDS: TICAGRELOR 90 MG TABLET PO ×2 (08:34→21:08)
[2024-09-03] MEDS: FUROSEMIDE 40 MG TABLET PO (08:34)
[2024-09-03] MEDS: PANTOPRAZOLE 40 MG TABLET PO (08:34)
[2024-09-03] MEDS: EMPAGLIFLOZIN 12.5 MG TABLET PO (08:34)
[2024-09-03] MEDS: CHOLECALCIFEROL 1,000 UNITS TABLET 2000 UNITS PO (08:35)
[2024-09-03] MEDS: FLUTICASONE/SALMETEROL 115-21 MCG INHALER 1 PUFF 2 PUFF INHALATION ×2 (09:41→20:57)
[2024-09-03] MEDS: UMECLIDINIUM BROMIDE 62.5 MCG ELLIPTA 2 PUFF INHALATION (09:42)
--- NOTE | 2024-09-03 10:19 | PCSTNOTE ---
Please refer to the Modified Barium Swallow Evaluation in the EMR. The above pleasant and cooperative patient was seen for a modified barium swallow. He was alert, oriented, and able to follow commands. He is currently on a regular diet and reports occasional difficulty/instances where he can't swallow. He stated it is not consistent and is not sure what triggers the difficulty. Oral mucosa is normal; natural dentition is in good condition, and the lingual and labial structures are normal. An informal oral peripheral exam revealed that he was able to dry swallow on command and had clear vocal quality. The patient was seated for a lateral view and presented with 5cc of thin liquid barium via spoon, pudding consistency barium via a spoon, cracker coated with barium pudding via spoon, and uncontrolled thin liquid barium. This was presented via a cup & straw. Oral preparatory and oral phase symptoms: none. Pharyngeal phase symptoms: none. Esophageal stage symptoms: none. Overall, no aspiration occurred. Impressions: Normal swallow Ability Recommendation: Regular diet with regular liquids; no further ST is warranted at this time. Thank you for this referral
--- NOTE | 2024-09-03 13:06 | P.PNGI_ITS ---
Progress Note: A&P Assessment and Plan (1) Dysphagia: Qualifiers: Dysphagia type: oropharyngeal phase Qualified Code(s): R13.12 - Dysphagia, oropharyngeal phase Code(s): R13.10 - Dysphagia, unspecified Status: Acute Assessment and Plan: The barium swallow study conducted this morning did not demonstrate oropharyngeal dysphagia. The findings are more consistent with a suspected esophageal motility disorder. To further evaluate this, an EGD will be performed to exclude mucosal or mechanical etiologies. Random biopsies will be obtained during EGD to rule out eosinophilic esophagitis. In the event of a normal EGD and biopsy results, high-resolution esophageal manometry is indicated. For that purpose he will be refered to a tertiary care institution and will be scheduled as an outpatient procedure. Subjective Date/time seen: 09/03/24 13:06 Interval history: The patient reports longstanding difficulty swallowing, feeling like liquids get stuck in his throat. However, this morning's modified barium swallow did not show any evidence of aspiration. Exam Narrative: Unchanged from yesterday. Objective Data Vital Signs Vital Signs: Vital Signs - 24 hr 09/02/24 13:15 09/02/24 13:15 09/02/24 13:30 Temperature Pulse Rate 76 Pulse Rate [Bilateral Pedal (Dorsalis Pedis) Palpation] 76 76 Pulse Rate [Right Radial Palpation] Respiratory Rate 15 Blood Pressure 131/61 Pulse Oximetry 93 Oxygen Delivery Nasal Cannula Oxygen Flow Rate 2 09/02/24 13:30 09/02/24 13:45 09/02/24 13:45 Temperature Pulse Rate 76 73 Pulse Rate [Bilateral Pedal (Dorsalis Pedis) Palpation] 73 Pulse Rate [Right Radial Palpation] Respiratory Rate 23 H 15 Blood Pressure 108/86 119/64 Pulse Oximetry 93 91 Oxygen Delivery Nasal Cannula Nasal Cannula Oxygen Flow Rate 2 2 09/02/24 14:00 09/02/24 14:00 09/02/24 14:10 Temperature Pulse Rate 67 Pulse Rate [Bilateral Pedal (Dorsalis Pedis) Palpation] 67 67 Pulse Rate [Right Radial Palpation] Respiratory Rate 17 Blood Pressure 123/63 Pulse Oximetry 94 Oxygen Delivery Nasal Cannula Oxygen Flow Rate 2 09/02/24 14:15 09/02/24 14:15 09/02/24 14:30 Temperature Pulse Rate 69 Pulse Rate [Bilateral Pedal (Dorsalis Pedis) Palpation] 69 68 Pulse Rate [Right Radial Palpation] Respiratory Rate 18 Blood Pressure 125/55 L Pulse Oximetry 94 Oxygen Delivery Nasal Cannula Oxygen Flow Rate 2 09/02/24 14:30 09/02/24 14:45 09/02/24 14:45 Temperature Pulse Rate 68 67 Pulse Rate [Bilateral Pedal (Dorsalis Pedis) Palpation] 67 Pulse Rate [Right Radial Palpation] Respiratory Rate 18 15 Blood Pressure 112/49 L 117/65 Pulse Oximetry 95 95 Oxygen Delivery Nasal Cannula Nasal Cannula Oxygen Flow Rate 2 2 09/02/24 15:02 09/02/24 15:02 09/02/24 15:15 Temperature Pulse Rate 60 Pulse Rate [Bilateral Pedal (Dorsalis Pedis) Palpation] 60 63 Pulse Rate [Right Radial Palpation] Respiratory Rate 18 Blood Pressure 104/50 L Pulse Oximetry 94 Oxygen Delivery Nasal Cannula Oxygen Flow Rate 2 09/02/24 15:15 09/02/24 15:30 09/02/24 15:30 Temperature Pulse Rate 63 60 Pulse Rate [Bilateral Pedal (Dorsalis Pedis) Palpation] 60 Pulse Rate [Right Radial Palpation] Respiratory Rate 18 15 Blood Pressure 112/70 110/55 L Pulse Oximetry 95 94 Oxygen Delivery Nasal Cannula Nasal Cannula Oxygen Flow Rate 2 2 09/02/24 15:48 09/02/24 15:48 09/02/24 16:00 Temperature Pulse Rate 62 Pulse Rate [Bilateral Pedal (Dorsalis Pedis) Palpation] 62 Pulse Rate [Right Radial Palpation] Respiratory Rate 16 Blood Pressure 119/58 L Pulse Oximetry 95 96 Oxygen Delivery Nasal Cannula Nasal Cannula Oxygen Flow Rate 2 2 09/02/24 16:04 09/02/24 16:04 09/02/24 16:15 Temperature Pulse Rate 61 Pulse Rate [Bilateral Pedal (Dorsalis Pedis) Palpation] 61 60 Pulse Rate [Right Radial Palpation] Respiratory Rate 20 Blood Pressure 111/61 Pulse Oximetry 95 Oxygen Delivery Nasal Cannula Oxygen Flow Rate 2 09/02/24 16:15 09/02/24 16:30 09/02/24 16:45 Temperature 97.8 F Pulse Rate 60 59 L 52 L Pulse Rate [Bilateral Pedal (Dorsalis Pedis) Palpation] Pulse Rate [Right Radial Palpation] Respiratory Rate 15 16 Blood Pressure 128/57 L 138/70 Pulse Oximetry 95 99 Oxygen Delivery Nasal Cannula Oxygen Flow Rate 2 09/02/24 17:15 09/02/24 17:15 09/02/24 17:18 Temperature 97.4 F L 98.1 F Pulse Rate 62 60 Pulse Rate [Bilateral Pedal (Dorsalis Pedis) Palpation] Pulse Rate [Right Radial Palpation] 69 Respiratory Rate 16 14 Blood Pressure 127/61 115/59 L Pulse Oximetry 96 95 Oxygen Delivery Oxygen Flow Rate 09/02/24 18:00 09/02/24 18:18 09/02/24 19:00 Temperature 97.7 F Pulse Rate 59 L 59 L 58 L Pulse Rate [Bilateral Pedal (Dorsalis Pedis) Palpation] Pulse Rate [Right Radial Palpation] Respiratory Rate 20 Blood Pressure 138/78 Pulse Oximetry 93 Oxygen Delivery Oxygen Flow Rate 09/02/24 19:55 09/02/24 20:00 09/02/24 20:00 Temperature 97.7 F Pulse Rate 53 L 54 L Pulse Rate [Bilateral Pedal (Dorsalis Pedis) Palpation] Pulse Rate [Right Radial Palpation] Respiratory Rate 20 Blood Pressure 144/65 H Pulse Oximetry 96 96 Oxygen Delivery Nasal Cannula Oxygen Flow Rate 2 09/02/24 20:46 09/02/24 21:14 09/02/24 22:00 Temperature 97.6 F Pulse Rate 53 L 51 L Pulse Rate [Bilateral Pedal (Dorsalis Pedis) Palpation] Pulse Rate [Right Radial Palpation] Respiratory Rate 20 Blood Pressure 140/68 Pulse Oximetry 96 96 Oxygen Delivery Nasal Cannula Oxygen Flow Rate 2 09/02/24 23:32 09/03/24 00:00 09/03/24 00:00 Temperature 97.7 F Pulse Rate 53 L 61 Pulse Rate [Bilateral Pedal (Dorsalis Pedis) Palpation] Pulse Rate [Right Radial Palpation] Respiratory Rate 20 Blood Pressure 114/60 Pulse Oximetry 93 93 Oxygen Delivery Nasal Cannula Oxygen Flow Rate 2 09/03/24 02:00 09/03/24 03:51 09/03/24 04:00 Temperature 97.6 F Pulse Rate 56 L 66 Pulse Rate [Bilateral Pedal (Dorsalis Pedis) Palpation] Pulse Rate [Right Radial Palpation] Respiratory Rate 20 Blood Pressure 142/67 H Pulse Oximetry 98 98 Oxygen Delivery Nasal Cannula Oxygen Flow Rate 2 09/03/24 04:00 09/03/24 06:00 09/03/24 07:40 Temperature 97.8 F Pulse Rate 73 63 57 L Pulse Rate [Bilateral Pedal (Dorsalis Pedis) Palpation] Pulse Rate [Right Radial Palpation] Respiratory Rate 16 Blood Pressure 139/62 Pulse Oximetry 98 Oxygen Delivery Oxygen Flow Rate 09/03/24 08:00 09/03/24 08:34 09/03/24 09:42 Temperature Pulse Rate 61 61 60 Pulse Rate [Bilateral Pedal (Dorsalis Pedis) Palpation] Pulse Rate [Right Radial Palpation] Respiratory Rate 24 H Blood Pressure Pulse Oximetry 91 Oxygen Delivery Nasal Cannula Oxygen Flow Rate 2 09/03/24 09:42 09/03/24 10:00 09/03/24 12:00 Temperature Pulse Rate 64 61 Pulse Rate [Bilateral Pedal (Dorsalis Pedis) Palpation] Pulse Rate [Right Radial Palpation] Respiratory Rate 20 Blood Pressure Pulse Oximetry 98 Oxygen Delivery Nasal Cannula Oxygen Flow Rate 2 09/03/24 12:00 09/03/24 12:00 Temperature 97.8 F Pulse Rate 60 62 Pulse Rate [Bilateral Pedal (Dorsalis Pedis) Palpation] Pulse Rate [Right Radial Palpation] Respiratory Rate 16 Blood Pressure 122/66 Pulse Oximetry 95 Oxygen Delivery Oxygen Flow Rate Intake/Output Intake/Output: Intake & Output 08/31/24 09/01/24 09/02/24 09/03/24 23:59 23:59 23:59 23:59 Intake Total 480 880 Balance 480 880 Meds/Results Medications: Active Medications Generic Name Dose Route Start Last Admin Trade Name Freq PRN Reason Stop Dose Admin Acetaminophen 650 mg 09/01/24 21:51 Acetaminophen 325 Mg Tablet PO Q6H PRN Mild Pain (1-3) or Fever Albuterol 2 puff 09/01/24 21:45 Albuterol Sulfate (*Sp) Aerosol 1 Puff INHALATION Q4-6H PRN Dyspnea Aspirin 81 mg 09/02/24 18:00 09/02/24 16:56 Aspirin 81 Mg Enteric Tablet PO 81 mg QPM [place] Administration Calcium Carbonate 200 mg 09/01/24 21:51 Calcium Carbonate (Tums) 500 Mg (200 Mg Elemental) PO Q6H PRN Indigestion Carvedilol 6.25 mg 09/01/24 21:50 09/03/24 08:34 Carvedilol 6.25 Mg Tablet PO 6.25 mg Q12HR [place] Administration Dextrose 12.5 gm 09/01/24 17:20 Dextrose 50% 25 Gm/50 Ml Syringe IV PUSH PRN PRN Hypoglycemia Protocol Empagliflozin 12.5 mg 09/02/24 09:00 09/03/24 08:34 Empagliflozin 12.5 Mg Tablet PO 12.5 mg DAILY [place] Administration Furosemide 40 mg 09/02/24 09:00 09/03/24 08:34 Furosemide 40 Mg Tablet PO 40 mg DAILY [place] Administration Glucagon 1 mg 09/01/24 17:20 Glucagon For Inj 1 Mg Vial IM PRN PRN Hypoglycemia Protocol Glucose 15 gm 09/01/24 17:20 Glucose Oral Gel 15 Gm Of Glucse In 37.5 Gm Tube PO PRN PRN Hypoglycemia Protocol Guaifenesin 1,200 mg 09/02/24 09:00 09/03/24 08:34 Guaifenesin 12 Hr 600 Mg Tabcr PO 1,200 mg Q12HR [place] Administration Dextrose 1,000 mls @ 100 mls/hr 09/01/24 17:20 Dextrose 5% 1,000 Ml IVPB PRN PRN Hypoglycemia Protocol Latanoprost 1 drop 09/02/24 18:00 09/02/24 16:58 Latanoprost 0.005% Op Soln 2.5 Ml Btl EACH EYE 1 drop QPM [place] Administration Loratadine 10 mg 09/01/24 21:50 Loratadine 10 Mg Tablet PO DAILY PRN Congestion Losartan Potassium 50 mg 09/02/24 09:00 09/03/24 08:34 Losartan Potassium 50 Mg Tablet PO 50 mg DAILY [place] Administration Nitroglycerin 0.4 mg 09/01/24 17:20 Nitroglycerin Sl 0.4 Mg Tablet SUBLINGUAL Q5MIN PRN Chest Pain Ondansetron HCl 4 mg 09/01/24 17:20 Ondansetron Inj 4 Mg/2 Ml Vial IV PUSH Q4H PRN Nausea Pantoprazole Sodium 40 mg 09/02/24 17:00 09/03/24 08:34 Pantoprazole 40 Mg Tablet PO 40 mg BID [place] Administration Polyethylene Glycol 17 gm 09/01/24 21:45 Polyethylene Glycol 3350 17 Gm Powd.Pack PO DAILY PRN constipation Rosuvastatin Calcium 20 mg 09/02/24 09:00 09/03/24 08:34 Rosuvastatin 20 Mg Tablet PO 20 mg DAILY [place] Administration Fluticasone/Salmeterol 2 puff 09/02/24 08:00 09/03/24 09:41 Fluticasone/Salmeterol 115-21 Mcg Inhaler 1 Puff INHALATION 2 puff Q12HRT [place] Administration Ticagrelor 90 mg 09/01/24 21:50 09/03/24 08:34 Ticagrelor 90 Mg Tablet PO 90 mg Q12HR [place] Administration Umeclidinium [place] 2 puff 09/02/24 08:00 09/03/24 09:42 Umeclidinium [place] 62.5 Mcg Ellipta INHALATION 2 puff DAILYRT [place] Administration Vitamin D 2,000 units 09/02/24 09:00 09/03/24 08:35 Cholecalciferol 1,000 Units Tablet PO 2,000 units DAILY [place] Administration Radiology Results: ITS Impressions Chest X-Ray 09/01/24 14:04 IMPRESSION: No acute cardiopulmonary process. Chronic interstitial lung disease, overlying emphysematous change. Chest CTA 09/01/24 16:26 IMPRESSION: No CT evidence of acute pulmonary embolus. Subsegmental bibasilar consolidation may represent infection/aspiration. Small bilateral pleural effusions. The right pleural fluid is hyperdense and there is anterior right pleural thickening versus loculated fluid. Mediastinal lymphadenopathy. Moderate esophagitis. Modified Barium Swallow 09/03/24 09:58 IMPRESSION: Patient tolerated regular consistency oral feedings in the upright position. Please correlate with speech pathologist findings and specific feeding recommendations.
--- NOTE | 2024-09-03 15:45 | PC.NURSE ---
On 09/03/24, the student, [Pati Russell ], provided care and completed [facility] documentation on this patient. I have reviewed the student's documentation and agree with the findings.
--- NOTE | 2024-09-03 17:45 | PC.NURSE ---
This patient, Mc Colon, was transferred to [[id number] ] on 09/03/24 at 1745. Personal belongings sent with patient. Report given to [GIANNA Alanis ]. Appropriate documentation sent with patient.
[2024-09-03] MEDS: ASPIRIN 81 MG ENTERIC TABLET PO (18:16)
[2024-09-04] VITALS (12 sets, daily range): BP systolic 101–142; BP diastolic 50–80; PULSE 52–61; RESP 16–18; TEMP 35.7–36.6; O2SAT 92–97
--- NOTE | 2024-09-04 02:25 | ECG_ITS ---
Test Date: 2024-09-04 02:39:22 Measurements Intervals [place] Rate: 68 P: 71 CA: 175 QRS: 48 QRSD: 110 T: -53 QT: 423 QTc: 452 Interpretive Statements SINUS RHYTHM WITH MARKED SINUS ARRHYTHMIA INTRAVENTRICULAR CONDUCTION DELAY MINIMAL Q WAVES- INFERIOR LEADS ST-T WAVE ABNORMALITY IN INFERIOR LEADS- CONSIDER ISCHEMIA BASELINE ARTIFACT- II, III, AVR, AVF, V3 ABNORMAL ECG Compared to ECG 09/01/2024 20:16:18 ST-T WAVE ABNORMALITY NOW PRESENT POSSIBLE ISCHEMIA NOW PRESENT Electronically Signed On 09-04-2024 08:12:34 CDT by Alfie Dukes D.O.
--- NOTE | 2024-09-04 02:26 | PM.EVENT ---
Event Note Event Note Event Note: 09/04/2024 0225 Patient called nursing staff's and and chest pain radiating up into his left jaw. Stat EKG was ordered. I instructed the nurses to give the patient his p.r.n. sublingual nitroglycerin that is already ordered. Patient had cardiac catheterization on the that demonstrated patent stents and no other areas of stenosis greater than 30%. The patient's description of pain he could be having an anginal episode. However he has also receiving evaluation for GI causes of chest pain. He is having EGD in a.m.. Patient received 1 dose of sublingual nitro with complete relief in his symptoms. EKG was reviewed and demonstrated no evidence of ischemia. Patient had anginal event that is subsequently resolved.
[2024-09-04] MEDS: NITROGLYCERIN SL 0.4 MG TABLET SUBLINGUAL (02:30)
[2024-09-04] MEDS: UMECLIDINIUM BROMIDE 62.5 MCG ELLIPTA 1 PUFF INHALATION (08:07)
[2024-09-04] MEDS: FLUTICASONE/SALMETEROL 115-21 MCG INHALER 1 PUFF 2 PUFF INHALATION (08:08)
[2024-09-04] MEDS: ROSUVASTATIN 20 MG TABLET PO (08:33)
[2024-09-04] MEDS: EMPAGLIFLOZIN 12.5 MG TABLET PO (08:35)
[2024-09-04] MEDS: CHOLECALCIFEROL 1,000 UNITS TABLET 2000 UNITS PO (08:35)
[2024-09-04] MEDS: FUROSEMIDE 40 MG TABLET PO (08:36)
[2024-09-04] MEDS: guaiFENesin 12 HR 600 MG TABCR 1200 MG PO (08:53)
[2024-09-04] MEDS: carvediloL 6.25 MG TABLET PO (08:53)
[2024-09-04] MEDS: LOSARTAN POTASSIUM 50 MG TABLET PO (08:53)
[2024-09-04] MEDS: LACTATED RINGERS 1,000 ML 150 ML IV CONT (10:53)
--- NOTE | 2024-09-04 11:24 | P.PNAN_ITS ---
Anes - Initial Pre Proc Eval Procedure: Operation Date: 09/02/24 11:30 Proposed Procedures p Left Heart Cath - Jose Claudio MD Operation Date: 09/04/24 14:15 Proposed Procedures p Esophagogastroduodenoscopy - Negro Johnson MD Date/Time: 09/04/24 11:24 Surgeon: Annabella Hicks MD Pre Op Diagnosis: CP/CAD/Troponin Patient Data Age: 74 Gender: M Height: 1.83 m Weight: 94.7 kg Last Vital Signs Temp 36.3 C L 09/04/24 10:42 Pulse 52 L 09/04/24 10:42 Resp 18 09/04/24 10:42 BP 137/69 09/04/24 10:42 Pulse Ox 94 09/04/24 10:42 O2 Del Method Nasal Cannula 09/04/24 10:42 O2 Flow Rate 2 09/04/24 10:42 Allergies Allergy/AdvReac Type Severity Reaction Status Date / Time No Known Allergies Allergy Verified 09/01/24 21:00 Home Medications ?Medication ?Instructions ?Recorded ?Confirmed ?Type albuterol sulfate 90 mcg/actuation 2 puff inhalation Q4-5H PRN Dyspnea 06/27/22 09/01/24 History aerosol inhaler aspirin 81 mg tablet,delayed 81 mg PO QPM 06/27/22 09/01/24 History release cetirizine 10 mg capsule 10 mg PO DAILY PRN Congestion 06/27/22 09/01/24 History fluticasone 250 mcg-salmeterol 50 1 inh inhalation BID 06/27/22 09/01/24 History mcg/dose blistr powdr for inhalation (Wixela Inhub) pantoprazole 40 mg tablet,delayed 40 mg PO QAM 06/27/22 09/01/24 History release cholecalciferol (vitamin D3) 25 50 mcg PO DAILY 06/16/24 09/01/24 History mcg (1,000 unit) tablet (Vitamin D3) empagliflozin 10 mg tablet 12.5 mg PO DAILY 06/16/24 09/01/24 History (Jardiance) furosemide 40 mg tablet 40 mg PO DAILY 06/16/24 09/01/24 History latanoprost 0.005 % eye drops 1 drp EACH EYE QPM 06/16/24 09/01/24 History rosuvastatin 40 mg tablet 20 mg PO DAILY 06/16/24 09/01/24 History tiotropium bromide 2.5 2 inh inhalation DAILY 06/16/24 09/01/24 History mcg/actuation mist for inhalation (Spiriva Respimat) ticagrelor 90 mg tablet (Brilinta) 90 mg PO Q12HR 30 days #60 tabs 06/17/24 09/01/24 Rx carvedilol 6.25 mg tablet (Coreg) 6.25 mg PO Q12HR #60 tabs 06/18/24 09/01/24 Rx losartan 50 mg tablet 50 mg PO DAILY #30 tabs 06/18/24 09/01/24 Rx polyethylene glycol 3350 17 17 g PO DAILY PRN constipation 09/01/24 09/01/24 History gram/dose oral powder (Miralax) Patient hx anesthesia problems: none Family hx anesthesia problems: none Results Review: All pre-operative results and documents have been reviewed as part of the pre- operative evaluation. [facility] Past Medical History Medical History Prediabetes Depression with anxiety Glaucoma Gastroesophageal reflux disease Obstructive sleep apnea on CPAP Chronic respiratory failure with hypoxia, on home oxygen therapy Chronic obstructive pulmonary disease Hypertension Hyperlipidemia Surgical History Surgical History History of right-sided carotid endarterectomy (2011) History of coronary artery stent placement (06/2024) stents to the distal RCA and LAD History of cardiac catheterization Family History Family History Father COPD (chronic obstructive pulmonary disease) Sibling Macular degeneration Social History Social History Social History: Surrogate medical decision maker: Sejal Fierro, sibling ([phone]). Code status: Full code. 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 Substance use: never Substance use type: does not use Do You Feel Safe in your Home?: Yes Lack of Transportation: No Lack of Food: Never True Current Housing: I Have Housing Concerned About Future Housing: No Difficulty Paying Gas/Electric Bills: No Difficulty Paying for Meds: No Currently Unemployed: No Education: High School Diploma/GED Difficulty w/ Childcare or Family Care: No Living arrangements: alone Spiritual care concerns: No Anes - Eval Final PreProcedure Day of Procedure 09/04/24 11:24 Patient weight: normal Heart: regular rate and rhythm Lungs: clear to auscultation Airway: Mallampati scale class II Neurological: alert and oriented Last oral intake: >/= 8 hours ASA classification: IV Emergent: no Anesthetic plan: proceed Anesthesia type and monitoring: general GIVS and standard monitoring Results Review: All pre-operative results and documents have been reviewed as part of the pre- operative evaluation. Informed Consent: The patient's anesthetic plan and its attendant risks and benefits were discussed with the patient/family/POA. Questions were solicited and answers provided to the satisfaction of the patient/family/POA.
[2024-09-04] MEDS: BENZOCAINE (*SP) 60 ML SPRAY CAN (HURRICAINE) 1 SPRAY MUCOUS MEM (11:32)
--- NOTE | 2024-09-04 11:37 | PM.IMPN ---
Progress Note: A&P Assessment and Plan (1) Non-ST elevation myocardial infarction (NSTEMI): Code(s): I21.4 - Non-ST elevation (NSTEMI) myocardial infarction Status: Acute (2) Esophagitis: Code(s): K20.90 - Esophagitis, unspecified without bleeding Status: Acute (3) Pneumonitis: Code(s): J98.4 - Other disorders of lung Status: Acute (4) Coronary artery disease: Code(s): I25.10 - Atherosclerotic heart disease of [place] coronary artery without angina pectoris Status: Acute (5) Hypertension: Code(s): I10 - Essential (primary) hypertension Status: Acute (6) Prediabetes: Code(s): R73.03 - Prediabetes Status: Acute (7) Chronic obstructive pulmonary disease: Code(s): J44.9 - Chronic obstructive pulmonary disease, unspecified Status: Acute (8) Obstructive sleep apnea on CPAP: Code(s): G47.33 - Obstructive sleep apnea (adult) (pediatric) Status: Acute Plan Non ST elevation [place] -Patient received Lovenox 90 mg subcutaneously yesterday night -Currently on aspirin, carvedilol and Brilinta -Patient recently had 2 stents placed distal RCA and mid LAD in June 2024. -Another area of blockage that was not amenable for stenting(ostium of the rPDA has 50-60% stenosis with FAVIAN 3 flow - per records). 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 p.o., losartan 50 mg daily p.o., hydrochlorothiazide 12. 5 mg daily p.o. 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 He was hospitalized at that time. TSH 0.194, T4 within normal limit Follow-up with PCP Esophagitis, unspecified without bleeding Oropharyangeal dysphagia CTA Chest:No CT evidence of acute pulmonary embolus. Subsegmental bibasilar consolidation may represent infection/aspiration. Small bilateral pleural effusions. The right pleural fluid is hyperdense and there is anterior right pleural thickening versus loculated fluid. Mediastinal lymphadenopathy. Moderate esophagitis. On PPI EGD today GI following COPD Chronic Continue Incruse Ellipta Dysphagia Speech therapy evaluation pending DVT prophylaxis on Sq Lovenox Subjective Date/time seen: 09/04/24 11:37 Interval history: Comfortable at bedside, for EGD today MBS showed oropharyngeal dysphagia Review of Systems Review of Systems: 12 systems were reviewed and are negative except for as per HPI. Exam Narrative: General: Well-developed, nontoxic-appearing gentleman sitting up in bed in no acute distress. Weight: 91.6 kg. BMI: 27.4. HEENT: PERRL, EOMI. Sclera anicteric. Oral mucosa moist. Oropharynx clear. Neck: Supple. No JVD. Respiratory: Respirations are nonlabored he is speaking full sentences. He is at his baseline oxygen requirement of 3 L. Decreased air movement throughout all lung piper with scattered crackles and rare wheezing. Cardiovascular: Regular rate and rhythm with S1-S2. Gastrointestinal: Abdomen is soft, nontender, and nondistended with positive bowel sounds. Skin: Warm and dry. No rash or lesions on limited exam. Extremities: No cyanosis, clubbing, or edema. Radial and pedal pulses intact. Neurological: Alert. Cranial nerves 2-12 are grossly intact. No gross focal deficits to casual conversation. Psychiatric: Pleasant and cooperative with normal mood and affect. Judgment and insight intact. Objective Data Vital Signs Vital Signs: Vital Signs - 24 hr 09/03/24 12:00 09/03/24 12:00 09/03/24 12:00 Temperature 97.8 F Pulse Rate 60 62 Respiratory Rate 16 Blood Pressure 122/66 Pulse Oximetry 98 95 Oxygen Delivery Nasal Cannula Oxygen Flow Rate 2 09/03/24 15:57 09/03/24 18:00 09/03/24 20:00 Temperature 97.5 F L 98.2 F 97.4 F L Pulse Rate 52 L 52 L 62 Respiratory Rate 12 15 20 Blood Pressure 137/61 128/60 138/66 Pulse Oximetry 97 93 92 Oxygen Delivery Oxygen Flow Rate 09/03/24 20:00 09/03/24 20:57 09/03/24 21:09 Temperature Pulse Rate 62 Respiratory Rate Blood Pressure Pulse Oximetry 93 93 Oxygen Delivery Nasal Cannula Nasal Cannula Oxygen Flow Rate 2 2 09/04/24 00:00 09/04/24 02:19 09/04/24 02:59 Temperature 97.4 F L Pulse Rate 61 60 60 Respiratory Rate 16 18 18 Blood Pressure 130/61 142/66 H 142/66 H Pulse Oximetry 92 94 94 Oxygen Delivery Nasal Cannula Oxygen Flow Rate 2 09/04/24 03:22 09/04/24 04:00 09/04/24 08:08 Temperature 97.8 F Pulse Rate 56 L 55 L Respiratory Rate 18 16 Blood Pressure 138/80 128/62 Pulse Oximetry 97 96 93 Oxygen Delivery Nasal Cannula Oxygen Flow Rate 2 09/04/24 08:12 09/04/24 08:53 09/04/24 08:53 Temperature 96.3 F L Pulse Rate 52 L 55 L Respiratory Rate 16 Blood Pressure 128/50 L Pulse Oximetry 95 95 Oxygen Delivery Nasal Cannula Oxygen Flow Rate 2 09/04/24 10:42 Temperature 97.3 F L Pulse Rate 52 L Respiratory Rate 18 Blood Pressure 137/69 Pulse Oximetry 94 Oxygen Delivery Nasal Cannula Oxygen Flow Rate 2 Intake/Output Intake/Output: Intake & Output 09/01/24 09/02/24 09/03/24 09/04/24 23:59 23:59 23:59 23:59 Intake Total 480 1979 250 Balance 480 1979 250 Meds/Results Medications: Active Medications Generic Name Dose Route Start Last Admin Trade Name Freq PRN Reason Stop Dose Admin Acetaminophen 650 mg 09/01/24 21:51 Acetaminophen 325 Mg Tablet PO Q6H PRN Mild Pain (1-3) or Fever Albuterol 2 puff 09/01/24 21:45 Albuterol Sulfate (*Sp) Aerosol 1 Puff INHALATION Q4-6H PRN Dyspnea Aspirin 81 mg 09/02/24 18:00 09/03/24 18:16 Aspirin 81 Mg Enteric Tablet PO 81 mg QPM [place] Administration Calcium Carbonate 200 mg 09/01/24 21:51 Calcium Carbonate (Tums) 500 Mg (200 Mg Elemental) PO Q6H PRN Indigestion Carvedilol 6.25 mg 09/01/24 21:50 09/04/24 08:53 Carvedilol 6.25 Mg Tablet PO 6.25 mg Q12HR [place] Administration Dextrose 12.5 gm 09/01/24 17:20 Dextrose 50% 25 Gm/50 Ml Syringe IV PUSH PRN PRN Hypoglycemia Protocol Empagliflozin 12.5 mg 09/02/24 09:00 09/04/24 08:35 Empagliflozin 12.5 Mg Tablet PO 12.5 mg DAILY [place] Administration Furosemide 40 mg 09/02/24 09:00 09/04/24 08:36 Furosemide 40 Mg Tablet PO 40 mg DAILY [place] Administration Glucagon 1 mg 09/01/24 17:20 Glucagon For Inj 1 Mg Vial IM PRN PRN Hypoglycemia Protocol Glucose 15 gm 09/01/24 17:20 Glucose Oral Gel 15 Gm Of Glucse In 37.5 Gm Tube PO PRN PRN Hypoglycemia Protocol Guaifenesin 1,200 mg 09/02/24 09:00 09/04/24 08:53 Guaifenesin 12 Hr 600 Mg Tabcr PO 1,200 mg Q12HR [place] Administration Dextrose 1,000 mls @ 100 mls/hr 09/01/24 17:20 Dextrose 5% 1,000 Ml IVPB PRN PRN Hypoglycemia Protocol Lactated Ringer's 1,000 mls @ 150 mls/hr 09/04/24 10:40 09/04/24 10:53 Lr - Lactated Ringers Iv IV CONT 150 mls/hr .Q6H40M [place] Administration Latanoprost 1 drop 09/02/24 18:00 09/03/24 18:17 Latanoprost 0.005% Op Soln 2.5 Ml Btl EACH EYE Not Given QPM [place] Loratadine 10 mg 09/01/24 21:50 Loratadine 10 Mg Tablet PO DAILY PRN Congestion Losartan Potassium 50 mg 09/02/24 09:00 09/04/24 08:53 Losartan Potassium 50 Mg Tablet PO 50 mg DAILY [place] Administration Nitroglycerin 0.4 mg 09/01/24 17:20 09/04/24 02:30 Nitroglycerin Sl 0.4 Mg Tablet SUBLINGUAL 0.4 mg Q5MIN PRN Administration Chest Pain Ondansetron HCl 4 mg 09/01/24 17:20 Ondansetron Inj 4 Mg/2 Ml Vial IV PUSH Q4H PRN Nausea Polyethylene Glycol 17 gm 09/01/24 21:45 Polyethylene Glycol 3350 17 Gm Powd.Pack PO DAILY PRN constipation Rosuvastatin Calcium 20 mg 09/02/24 09:00 09/04/24 08:33 Rosuvastatin 20 Mg Tablet PO 20 mg DAILY [place] Administration Fluticasone/Salmeterol 2 puff 09/02/24 08:00 09/04/24 08:08 Fluticasone/Salmeterol 115-21 Mcg Inhaler 1 Puff INHALATION 2 puff Q12HRT [place] Administration Ticagrelor 90 mg 09/01/24 21:50 09/04/24 07:48 Ticagrelor 90 Mg Tablet PO Not Given Q12HR [place] Umeclidinium [place] 1 puff 09/04/24 08:00 09/04/24 08:07 Umeclidinium [place] 62.5 Mcg Ellipta INHALATION 1 puff DAILYRT [place] Administration Vitamin D 2,000 units 09/02/24 09:00 09/04/24 08:35 Cholecalciferol 1,000 Units Tablet PO 2,000 units DAILY [place] Administration Radiology Results: ITS Impressions Chest X-Ray 09/01/24 14:04 IMPRESSION: No acute cardiopulmonary process. Chronic interstitial lung disease, overlying emphysematous change. Chest CTA 09/01/24 16:26 IMPRESSION: No CT evidence of acute pulmonary embolus. Subsegmental bibasilar consolidation may represent infection/aspiration. Small bilateral pleural effusions. The right pleural fluid is hyperdense and there is anterior right pleural thickening versus loculated fluid. Mediastinal lymphadenopathy. Moderate esophagitis. Modified Barium Swallow 09/03/24 09:58 IMPRESSION: Patient tolerated regular consistency oral feedings in the upright position. Please correlate with speech pathologist findings and specific feeding recommendations. Quality VTE Prophylaxis VTE prophylaxis: mechanical ordered
--- NOTE | 2024-09-04 11:44 | P.PNGI_ITS ---
Progress Note: A&P Assessment and Plan (1) Dysphagia: Qualifiers: Dysphagia type: oropharyngeal phase Qualified Code(s): R13.12 - Dysphagia, oropharyngeal phase Code(s): R13.10 - Dysphagia, unspecified Status: Acute Assessment and Plan: While the patient's endoscopy revealed no evidence of esophagitis, GERD remains a potential diagnosis. The patient's dysphagia could be related to GERD itself or may indicate a primary esophageal motor disorder, which can also present with dysphagia and atypical GERD symptoms, including chest pain. To differentiate between these possibilities, I will refer the patient to [facility] for high-resolution esophageal manometry and 24-hour pH monit ori. Subjective Date/time seen: 09/04/24 11:44 Interval history: See EGD report. No significant findings. Biopsies taken routinely to rule out eosinophilic esophagitis. The patient had a chest episode last night, not associated with EKG changes and relieved by nitroglycerin.= Exam Narrative: Unchanged from yesterday. Objective Data Vital Signs Vital Signs: Vital Signs - 24 hr 09/03/24 12:00 09/03/24 12:00 09/03/24 12:00 Temperature 97.8 F Pulse Rate 60 62 Respiratory Rate 16 Blood Pressure 122/66 Pulse Oximetry 98 95 Oxygen Delivery Nasal Cannula Oxygen Flow Rate 2 09/03/24 15:57 09/03/24 18:00 09/03/24 20:00 Temperature 97.5 F L 98.2 F 97.4 F L Pulse Rate 52 L 52 L 62 Respiratory Rate 12 15 20 Blood Pressure 137/61 128/60 138/66 Pulse Oximetry 97 93 92 Oxygen Delivery Oxygen Flow Rate 09/03/24 20:00 09/03/24 20:57 09/03/24 21:09 Temperature Pulse Rate 62 Respiratory Rate Blood Pressure Pulse Oximetry 93 93 Oxygen Delivery Nasal Cannula Nasal Cannula Oxygen Flow Rate 2 2 09/04/24 00:00 09/04/24 02:19 09/04/24 02:59 Temperature 97.4 F L Pulse Rate 61 60 60 Respiratory Rate 16 18 18 Blood Pressure 130/61 142/66 H 142/66 H Pulse Oximetry 92 94 94 Oxygen Delivery Nasal Cannula Oxygen Flow Rate 2 09/04/24 03:22 09/04/24 04:00 09/04/24 08:08 Temperature 97.8 F Pulse Rate 56 L 55 L Respiratory Rate 18 16 Blood Pressure 138/80 128/62 Pulse Oximetry 97 96 93 Oxygen Delivery Nasal Cannula Oxygen Flow Rate 2 09/04/24 08:12 09/04/24 08:53 09/04/24 08:53 Temperature 96.3 F L Pulse Rate 52 L 55 L Respiratory Rate 16 Blood Pressure 128/50 L Pulse Oximetry 95 95 Oxygen Delivery Nasal Cannula Oxygen Flow Rate 2 09/04/24 10:42 Temperature 97.3 F L Pulse Rate 52 L Respiratory Rate 18 Blood Pressure 137/69 Pulse Oximetry 94 Oxygen Delivery Nasal Cannula Oxygen Flow Rate 2 Intake/Output Intake/Output: Intake & Output 09/01/24 09/02/24 09/03/24 09/04/24 23:59 23:59 23:59 23:59 Intake Total 480 1979 365 Balance 480 1979 365 Meds/Results Medications: Active Medications Generic Name Dose Route Start Last Admin Trade Name Freq PRN Reason Stop Dose Admin Acetaminophen 650 mg 09/01/24 21:51 Acetaminophen 325 Mg Tablet PO Q6H PRN Mild Pain (1-3) or Fever Albuterol 2 puff 09/01/24 21:45 Albuterol Sulfate (*Sp) Aerosol 1 Puff INHALATION Q4-6H PRN Dyspnea Aspirin 81 mg 09/02/24 18:00 09/03/24 18:16 Aspirin 81 Mg Enteric Tablet PO 81 mg QPM [place] Administration Calcium Carbonate 200 mg 09/01/24 21:51 Calcium Carbonate (Tums) 500 Mg (200 Mg Elemental) PO Q6H PRN Indigestion Carvedilol 6.25 mg 09/01/24 21:50 09/04/24 08:53 Carvedilol 6.25 Mg Tablet PO 6.25 mg Q12HR [place] Administration Dextrose 12.5 gm 09/01/24 17:20 Dextrose 50% 25 Gm/50 Ml Syringe IV PUSH PRN PRN Hypoglycemia Protocol Empagliflozin 12.5 mg 09/02/24 09:00 09/04/24 08:35 Empagliflozin 12.5 Mg Tablet PO 12.5 mg DAILY [place] Administration Furosemide 40 mg 09/02/24 09:00 09/04/24 08:36 Furosemide 40 Mg Tablet PO 40 mg DAILY [place] Administration Glucagon 1 mg 09/01/24 17:20 Glucagon For Inj 1 Mg Vial IM PRN PRN Hypoglycemia Protocol Glucose 15 gm 09/01/24 17:20 Glucose Oral Gel 15 Gm Of Glucse In 37.5 Gm Tube PO PRN PRN Hypoglycemia Protocol Guaifenesin 1,200 mg 09/02/24 09:00 09/04/24 08:53 Guaifenesin 12 Hr 600 Mg Tabcr PO 1,200 mg Q12HR [place] Administration Dextrose 1,000 mls @ 100 mls/hr 09/01/24 17:20 Dextrose 5% 1,000 Ml IVPB PRN PRN Hypoglycemia Protocol Lactated Ringer's 1,000 mls @ 150 mls/hr 09/04/24 10:40 09/04/24 11:39 Lr - Lactated Ringers Iv IV CONT 150 mls/hr .Q6H40M [place] Infusion Latanoprost 1 drop 09/02/24 18:00 09/03/24 18:17 Latanoprost 0.005% Op Soln 2.5 Ml Btl EACH EYE Not Given QPM [place] Loratadine 10 mg 09/01/24 21:50 Loratadine 10 Mg Tablet PO DAILY PRN Congestion Losartan Potassium 50 mg 09/02/24 09:00 09/04/24 08:53 Losartan Potassium 50 Mg Tablet PO 50 mg DAILY [place] Administration Nitroglycerin 0.4 mg 09/01/24 17:20 09/04/24 02:30 Nitroglycerin Sl 0.4 Mg Tablet SUBLINGUAL 0.4 mg Q5MIN PRN Administration Chest Pain Ondansetron HCl 4 mg 09/01/24 17:20 Ondansetron Inj 4 Mg/2 Ml Vial IV PUSH Q4H PRN Nausea Polyethylene Glycol 17 gm 09/01/24 21:45 Polyethylene Glycol 3350 17 Gm Powd.Pack PO DAILY PRN constipation Rosuvastatin Calcium 20 mg 09/02/24 09:00 09/04/24 08:33 Rosuvastatin 20 Mg Tablet PO 20 mg DAILY [place] Administration Fluticasone/Salmeterol 2 puff 09/02/24 08:00 09/04/24 08:08 Fluticasone/Salmeterol 115-21 Mcg Inhaler 1 Puff INHALATION 2 puff Q12HRT [place] Administration Ticagrelor 90 mg 09/01/24 21:50 09/04/24 07:48 Ticagrelor 90 Mg Tablet PO Not Given Q12HR [place] Umeclidinium [place] 1 puff 09/04/24 08:00 09/04/24 08:07 Umeclidinium [place] 62.5 Mcg Ellipta INHALATION 1 puff DAILYRT [place] Administration Vitamin D 2,000 units 09/02/24 09:00 09/04/24 08:35 Cholecalciferol 1,000 Units Tablet PO 2,000 units DAILY [place] Administration Radiology Results: ITS Impressions Chest X-Ray 09/01/24 14:04 IMPRESSION: No acute cardiopulmonary process. Chronic interstitial lung disease, overlying emphysematous change. Chest CTA 09/01/24 16:26 IMPRESSION: No CT evidence of acute pulmonary embolus. Subsegmental bibasilar consolidation may represent infection/aspiration. Small bilateral pleural effusions. The right pleural fluid is hyperdense and there is anterior right pleural thickening versus loculated fluid. Mediastinal lymphadenopathy. Moderate esophagitis. Modified Barium Swallow 09/03/24 09:58 IMPRESSION: Patient tolerated regular consistency oral feedings in the upright position. Please correlate with speech pathologist findings and specific feeding recommendations.
--- NOTE | 2024-09-04 15:26 | PM.DS ---
DS: Admitting Diagnosis Discharge Date 09/04/24 Admitting Diagnosis Chest pain. DS: Discharge Diagnosis Discharge Diagnosis (1) Chest pain: Qualifiers: Chest pain type: unspecified Qualified Code(s): R07.9 - Chest pain, unspecified Code(s): R07.9 - Chest pain, unspecified Status: Acute (2) Elevated troponin: Code(s): R79.89 - Other specified abnormal findings of blood chemistry Status: Acute DS: Summary Hospital Course Hospital Course: This is a pleasant 74-year-old male with history of coronary artery disease with stents to the distal RCA into the RPL branch and mid LAD on 06/16/2024, hypertension, dyslipidemia, carotid artery disease status post right carotid endarterectomy, chronic hypoxic respiratory failure on 3 L home oxygen, chronic obstructive pulmonary disease, obstructive sleep apnea on CPAP, gastroesophageal reflux disease, prediabetes, depression, anxiety, and glaucoma who presented to the emergency department via EMS from home with complaints of chest pain. Approximately 2 hours prior to arrival he was sitting on the couch watching television when he developed sudden onset midsternal and left anterior chest pain radiating into the left arm, left jaw, and left scapula. He became sweaty and a bit short of breath with that as well. Initially he thought his symptoms were related to his GERD which can be severe at times and after belching it may have helped somewhat. He then tried to drink a soda to see if that would help further however the discomfort intensified and did not improve. He then decided to come in for evaluation as the symptoms are similar to those he had in June prior to his stents although to a lesser extent. He has been compliant with his medications and has not missed any doses of his Brilinta. He denies syncope, near syncope, fever, pleuritic pain, palpitations, orthopnea, paroxysmal nocturnal dyspnea, vomiting, lower extremity edema, and calf pain. He does mention increasing cough and shortness of breath from baseline over the past week or so but denies sinus congestion, sore throat, and sick contacts. He also reports intermittent dysphagia, frequent heartburn, and he states that he would not be surprised if he aspirated on occasion due to the symptoms. In the ED: Vital signs were stable on arrival. Initial troponin was within normal limits however his 3 and 6 hour troponins have trended up: 0.012 --> 0.099 --> 0.734. RSV, influenza, and COVID were negative. Chest CTA was negative for PE but did show subsegmental bibasilar consolidation which may represent infection/aspiration, small bilateral effusions, moderate esophagitis. He was given aspirin 324 mg, enoxaparin 90 mg subQ, and a DuoNeb. He is being admitted to the IMU in this setting for close monitoring and Cardiology consultation. Cardiology did cardiac cath which showed no significant vessel disease and patent stents. patient was continued on her DAPT, Metoprolol and Crestor. ALso noted to have Orapharyngeal dysphagia per MBS, GI was consulted and patient underwent EGD which showed Gastritis. Patient discharged on Protonix 40mg bid. GI suspected Esophageal dysmotility and will refer patient to [facility] for manometry studies. F/u with PCP in 3-5 days F/u with GI and cardiology as instructed Time Spent with Patient Time attestation: Total time spent providing and/or coordinating discharge services: DS: Data Data Completed and Pending Pending studies at discharge: Pending at discharge 09/04/24 11:39 Surgical [PTH] Routine Discharge Plan Discharge Attending physician on discharge: Annabella Hicks Consulting providers: Carson Harris Discharging Clinician: Annabella Hicks Anticipated Discharge Date/Time: 09/04/24 15:23 Patient Disposition: Home, Self-Care Activity: as tolerated Diet: as tolerated and heart healthy Patient Instructions: Antibiotic Form, Ticagrelor (By mouth), Chest Pain (GEN), Heart Catheterization (DC), After Radial Heart Catheterization (GEN) Patient Language: Welsh Stand Alone Forms: General Discharge Information Follow-up/Referrals: Carson Harris MD [Physician] - (F/u with cardiology as instructed ) Negro Johnson MD [Physician] - (F/u with GI as instructed ) [facility] [Primary Care Provider] - (F/u with PCP in 3-5 days ) Discharge Medications: New pantoprazole [Protonix] 40 mg tablet,delayed release (DR/EC) 40 mg PO BID 30 Days Qty: 60 0RF Continued fluticasone propion-salmeterol [Wixela Inhub] 250-50 mcg/dose blister with device 1 inh INHALATION BID pantoprazole 40 mg tablet,delayed release (DR/EC) 40 mg PO QAM albuterol sulfate 90 mcg/actuation HFA aerosol inhaler 2 puff INHALATION Q4-5H PRN (Reason: Dyspnea) aspirin 81 mg Tablet,Delayed Release (Dr/Ec) 81 mg PO QPM cetirizine 10 mg Capsule 10 mg PO DAILY PRN (Reason: Congestion) cholecalciferol (vitamin D3) [Vitamin D3] 25 mcg (1,000 unit) tablet 50 mcg PO DAILY Jardiance 10 mg tablet 12.5 mg PO DAILY latanoprost 0.005 % drops 1 drp EACH EYE QPM Spiriva Respimat 2.5 mcg/actuation mist 2 inh inhalation DAILY rosuvastatin 40 mg tablet 20 mg PO DAILY furosemide 40 mg tablet 40 mg PO DAILY Brilinta 90 mg Tablet 90 mg PO Q12HR 30 Days Qty: 60 11RF carvedilol [Coreg] 6.25 mg Tablet 6.25 mg PO Q12HR Qty: 60 0RF losartan 50 mg tablet 50 mg PO DAILY Qty: 30 0RF polyethylene glycol 3350 [Miralax] 17 gram/dose powder 17 g PO DAILY PRN (Reason: constipation) Date of admission: 09/02/24 07:24 Primary Care Provider: [facility] Admitting Provider: Lasha Lin Attending physician on admission: Annabella Hicks Condition: Stable
== END 2024-09-04 16:23 | disposition home or self-care (01) | DRG 392 ==
LOC: ANHED 14:15 → ANHIMU 18:08 → ANH2MED 09-03 18:01
PROVIDERS: Internal Medicine; Internal Medicine Gastroenterology; Physician Assistant; Student in an Organized Health Care Education/Training Program; Admitting Provider Internal Medicine; Emergency Provider Physician Assistant; Visit Provider Internal Medicine
PROC: 4A023N7 Measurement of Cardiac Sampling and Pressure, Left Heart, Percutaneous Approach (ICD-10-PCS; CPT 93452; principal; 2024-09-02 11:30)
PROC: 0DJ08ZZ Inspection of Upper Intestinal Tract, Via Natural or Artificial Opening Endoscopic (ICD-10-PCS; principal; 2024-09-04 14:15)
DX: K29.30 Chronic superficial gastritis without bleeding (principal); J96.11 Chronic respiratory failure with hypoxia; I24.89 Other forms of acute ischemic heart disease; Q24.5 Malformation of coronary vessels; R13.13 Dysphagia, pharyngeal phase; K21.00 Gastro-esophageal reflux disease with esophagitis, without bleeding; R07.9 Chest pain, unspecified; R79.89 Other specified abnormal findings of blood chemistry; I25.10 Atherosclerotic heart disease of native coronary artery without angina pectoris; I10 Essential (primary) hypertension; E78.5 Hyperlipidemia, unspecified; J44.9 Chronic obstructive pulmonary disease, unspecified; G47.33 Obstructive sleep apnea (adult) (pediatric); H40.9 Unspecified glaucoma; E11.59 Type 2 diabetes mellitus with other circulatory complications; I15.2 Hypertension secondary to endocrine disorders; F32.A Depression, unspecified; Z20.822 Contact with and (suspected) exposure to COVID-19; F41.9 Anxiety disorder, unspecified; I25.2 Old myocardial infarction; Z95.5 Presence of coronary angioplasty implant and graft; Z99.81 Dependence on supplemental oxygen; Z87.891 Personal history of nicotine dependence
CPT/HCPCS: 36415; 71046; 71275; 80048; 80053; 83690; 83735; 84484; 85025; 85027; 85380; 85610; 85730; 87637; 88305; 92611; 93005; 93308; 93458; 94640; 96372; 99285; A9270; C1769; C1887; C1894; C8924; G0378; J1644; J1650; J2003; J2250; J2305; J2704; J3010; J7030; J7040; J7120; Q9957; Q9967